=== PATIENT | female | born 1970 | race Caucasian/White ===

== ENCOUNTER → 2018-03-19 16:57 | Outpatient (CLI) | payer OTHER, SELFPAY ==
[2018-03-24 15:34] LABS: HPV APTIMA, High Risk Negative (Negative)
== END ==
PROVIDERS: Family Provider Student in an Organized Health Care Education/Training Program; PCP Student in an Organized Health Care Education/Training Program; Visit Provider Obstetrics & Gynecology
DX: Z12.4 Encounter for screening for malignant neoplasm of cervix (principal)
CPT/HCPCS: 88175; G0145

== ENCOUNTER → 2018-08-25 17:23 | Outpatient (CLI) | payer OTHER, SELFPAY | PROVIDERS: Family Provider Student in an Organized Health Care Education/Training Program; PCP Student in an Organized Health Care Education/Training Program; Referring Provider Otolaryngology; Visit Provider Otolaryngology | DX: J32.9 Chronic sinusitis, unspecified (principal) | CPT/HCPCS: 87070; 87077; 87186; 87205 ==

== ENCOUNTER → 2018-09-08 12:39 | Outpatient (CLI) | payer OTHER, SELFPAY ==
--- NOTE | 2018-09-08 12:43 | CT_ITS ---
STUDY: CT MAXILLOFACIAL SINUSES REASON FOR EXAM: Female, 48 years old. Sinusitis. RADIATION DOSAGE (If Supplied By Facility): CTDIvol = ( 33.06 ) mGy, DLP = ( 780.13 ) mGycm TECHNIQUE: The patient was scanned in a multi detector CT scanner. High resolution axial imaging was performed without the administration of intravenous contrast material. Sagittal and coronal images were reconstructed. Individualized dose optimization techniques were used for this CT. COMPARISON: None. FINDINGS: FRONTAL SINUSES: Normal aeration, without mucosal inflammatory disease. ETHMOIDAL SINUSES: Normal aeration, without mucosal inflammatory disease. MAXILLARY SINUSES: Normal aeration, without mucosal inflammatory disease. SPHENOIDAL SINUSES: Normal aeration, without mucosal inflammatory disease. There is patency of the bilateral maxillary infundibuli with normal uncinate processes, ethmoid bullae, and hiatus semilunaris. Normal bilateral middle turbinates. Normal bilateral inferior turbinates. Midline nasal septum. Right-sided bone spur. There is patency of the bilateral nasal airways. Right renee bullosa. The visualized osseous structures are normal. The visualized bilateral orbital contents are normal. CT/Sinus/Facial Bone IMPRESSION: Paranasal sinuses are well aerated. Right-sided nasal septum bone spur. Electronically Signed: Mayur Prescott MD at 23:54 EST , Service support ,
== END ==
PROVIDERS: Family Provider Student in an Organized Health Care Education/Training Program; PCP Student in an Organized Health Care Education/Training Program; Referring Provider Otolaryngology; Visit Provider Otolaryngology
DX: J32.9 Chronic sinusitis, unspecified (principal)
CPT/HCPCS: 70486

== ENCOUNTER 2019-02-24 08:02 | Day surgery (SDC) | payer OTHER, SELFPAY ==
[2018-12-16 16:06] VITALS: BMI 21.8
[2019-01-24 08:47] VITALS: BMI 21.8
--- NOTE | 2019-01-24 08:49 | HP.PCM_ITS ---
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 Required: No Allergies Penicillins Allergy (Mild, Verified 01/24/19 08:40) hives Medications ascorbic acid (vitamin C) ER 500 mg capsule,extended release 500 mg PO QDAY 03/19/18 [History Confirmed 01/24/19] calcium carbonate-vitamin D3 600 mg (1,500 mg)-400 unit capsule cap PO BID cap 03/19/18 [History Confirmed 01/24/19] ferrous sulfate 325 mg (65 mg iron) tablet,delayed release 325 mg PO QDAY tab 03/19/18 [History Confirmed 01/24/19] tamoxifen 20 mg tablet 20 mg PO QDAY 03/19/18 [History Confirmed 01/24/19] Post menopausal: No Patient : No : [facility] Medical History (Updated 01/24/19 @ 08:47 by Jasmin Sosa MD) Breast cancer (Acute) Osteopenia (Chronic) Surgical History (Updated 01/24/19 @ 08:45 by Jasmin Sosa MD) H/O foot surgery (Acute) S/P bilateral mastectomy (Acute ~08/2017) Family History Father Congestive heart failure Diabetes Mother Breast cancer Diabetes Skin cancer Social History (Updated 01/24/19 @ 08:47 by Jasmin Sosa MD) Smoking Status: Never smoker alcohol intake: never substance use type: does not use caffeine: Yes (occasionally) what type of physical activity do you participate in: running, weight training frequency: 3-4 times per week seatbelt use: always do you feel safe at home: Yes 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 she has a dermoid cyst and a histoyr of breast caner. Pregancy History 3 Elective abortions Hx Para 3 Spontaneous abortions Hx # Term Pregnancies Ectopic pregnancies Hx # Pregnancies Multiple births # of living children Past Pregnancies Del. Date Name GA/Weeks Outcome Route Bth Weight Infant Gen Labor Lgth Anesthesia Del Locatn Provider FOB Unknown Amira-1991 Unknown -1993 Unknown 1997- Const Constitutional: Denies fatigue, fever(s), headache(s), increased appetite, poor appetite, weight gain or weight loss Cardio Card: Denies chest pain Resp Resp: Denies cough or dyspnea GI GI: Reports as per HPI; denies abdominal pain, constipation, nausea or vomiting : Reports as per HPI; denies difficulty urinating, painful urination, nipple discharge, urinary frequency, urinary incontinence, urinary hesitancy, urinary urgency, vaginal discharge, vaginal dryness, vaginal odor or vaginal itching Skin Skin/Breast: Denies change in hair, breast lump, breast pain, breast skin changes or nipple discharge Exam Const General: cooperative, healthy appearing, comfortable, no acute distress, well developed Nutritional Appearance: average body habitus Orientation: alert HENMT Head: normal to inspection, normocephalic Neck Neck: normal visual inspection, trachea midline Thyroid: thyroid normal Resp Effort & Inspection: normal respiratory effort GI Inspection: normal to inspection, non-distended Palpation: soft, no hepatosplenomegaly Skin General: no rashes or lesions noted Assessment & Plan Problems 1. Dermoid cyst D36.9 plan laparoscopic right oophorectomy, CW Plan plan oophorectomy. discussed surgical risks including risks of anesthesia, infection, bleeding, injury to bowel, bladder or blood vessels, and patient wishes to proceed with surgery. Coding Level of Care Code No Charge Diagnoses Dermoid cyst D36.9 UPDATE- I have seen the patient and performed any clinically relevant updates to the history and physical exam. Jasmin Sosa MD
[2019-02-24] VITALS (8 sets, daily range): BP systolic 105–117; BP diastolic 59–70; PULSE 64–75; RESP 16–18; TEMP 36.2–37; O2SAT 96–100; BMI 22.8
--- NOTE | 2019-02-24 | OV_PTH ---
PATIENT: GREYSON ROJAS LOC: [facility] – [place] U#:[id number] AGE/SX: 49/F ROOM: RE02/24/[address]: Dr. Jasmin Sosa MD : 1970 BED: DIS: 02/24/2019 SPEC #: [id number] RECD: 02/24/19 13:42 STATUS: MARTINE REFaith #: [id number] ELIZABETH: 02/24/19 00:[address]: Jasmin Sosa DEPT: SURGICAL PATHOLOGY RECD BY: Axel Sánchez ENTERED: 02/24/19 13:42 SP TYPE: OVARY OTHR DR: Dr. Gallo Sanches, Tissues: Right ovary Procedures: Surgery Specimen Level V HEADER OPERATION: Laparoscopic right salpingo-oophorectomy PRE-OP DIAGNOSIS: Dermoid cyst TISSUE SUBMITTED: Right fallopian tube and ovary MICROSCOPIC DIAGNOSIS Right fallopian tube and ovary, salpingo-oophorectomy: Mature cystic teratoma (dermoid cyst). Ovarian tissue with corpus luteal cysts and corpora albicantia. Fallopian tube with no pathologic change. AM:irene 02/25/19 MICROSCOPIC DESCRIPTION Slides are reviewed. GROSS DESCRIPTION Received in fixative is one container labeled with the patient's name and designated right fallopian tube and ovary. The specimen consists of a fallopian tube and cystic ovary. The fallopian tube measures 6 cm in length and up to 0.6 cm in diameter. The fimbrial end is identified. The fimbrial end is focally adherent to the surface of the ovary. Sections reveal unremarkable cut surfaces. The ovary weighs 27 gm and measures 6.5 x 4 x 3 cm. At one end of the ovary, a cyst is noted measuring 4 x 4 x 3 cm. The outer surface of the cyst is smooth and inked black. The cyst is filled with yellowish sebum-like material. A few hairs are also noted mixed with sebum-like material. A focal solid area is noted consisting of sebum-like material measuring 1 cm in greatest dimension. The cyst wall measures 0.1 cm in thickness. Sections of the uninvolved portion of the ovary reveal a few yellowish nodules consistent with corpus luteum measuring 0.5 cm in greatest dimension. Bag Turner sections are submitted in five cassettes as follows: 1 - fallopian tube, 2-5 - ovary. / SJ:irene 02/24/19 TC:1 CPT: 47293
[2019-02-24 08:41] LABS: Internal QC Validated? YES +Cl - CLEAR BKGD; Pregnancy, Urine Negative Negative
[2019-02-24 08:42] LABS: Hematocrit 39.1 % (37-47); Hemoglobin 12.7 g/dL (12.0-15.0); Mean Corp Hgb Conc 32.5 g/dL (32-36); Mean Corpuscular Hgb 29.1 pg (27.0-32.0); Mean Corpuscular Volume 89.7 fL (81-99); Mean Platelet Vol. 11.5 fl (6.2-12.0); Platelet Count 194 K/mm3 (150-450); RBC Distribution Width CV 13.7 % (11.6-14.6); RBC Distribution Width SD 44.8 fl (35.1-43.9); Red Blood Count 4.36 M/mm3 (4.2-5.4); White Blood Count 5.5 K/mm3 (4.4-11.0)
[2019-02-24 08:55] LABS: International Normalized Ratio 1.1; Partial Thromboplast Time 28.1 Seconds (24.1-36.2); Prothrombin Time (Protime)PT. 13.8 SECONDS (11.7-14.9)
[2019-02-24 09:02] LABS: AST(SGOT) 19 U/L (15-37); Alanine Aminotransfer ALT/SGPT 22 U/L (13-56); Albumin, Serum 3.6 g/dL (3.2-5.0); Alkaline Phosphatase 45 U/L (45-117); Bilirubin, Direct 0.09 mg/dL (0.00-0.30); Globulin 3.5 g/dL (2.2-4.2); Protein, Total 7.1 g/dL (6.4-8.2)
[2019-02-24] MEDS: Bupivacaine 0.25% 30 ML Vial (11:19)
--- NOTE | 2019-02-24 12:02 | PCM.OPRPT ---
Problem List (1) Dermoid cyst Status: Acute Comment: plan laparoscopic right oophorectomy, CW Report of Operation Date of Procedure: 02/24/19 Pre-Operative Diagnosis: dermoid cyst Post-Operative Diagnosis: same Surgery/Procedure Performed:: laparoscopic right salpingooophorectomy Description of Surgical Findings:: right enlarged ovary Type of Anesthesia:: General Special Medications: none Specimen's removed: right tube and ovary Drains: none Estimated Blood Loss (mL): 25 Fluids Replaced: crystalloid Description of Procedure: Patient was taken in the operating room and was placed under general anesthesia was prepped and draped in normal sterile fashion in the dorsal lithotomy position. Bladder was drained of clear urine and SCDs were on preoperatively. Uterus was sounded and a uterine manipulator was placed after dilating. Attention was then paid to the abdominal portion of the procedure and the umbilicus was elevated with towel clamps and injected with Marcaine and after a 5 mm incision was made and the Veress needle was entered into the abdomen confirmed to be intra-abdominal with a low opening pressure of less than 5 mmHg. Abdomen was insufflated with CO2 gas and a 12 mm optical trocar was placed under direct visualization. A left lower quadrant 5 mm port and a 5 mm port suprapubically replaced under direct visualization. Uterus was well visualized and and right ovary was noted to be enlarged, left ovary was within normal limits and some small adhesions were noted on the left fallopian tube. The right tube and ovary were transected across using the LigaSure device and then removed in an Endo Catch bag through the umbilical port without any complications. The fascia was closed directly with 0 Vicryl. Liver and upper abdomen were visualized notably within normal limits and no other gross abnormalities were seen in the abdomen. All instruments removed from the abdomen after gas was desufflated. Port sites were closed with 3-0 Monocryl Steri's and op sites were applied. All instruments removed from the vagina and patient was awoken and taken recovery in stable condition. Grafts/Implants Used: none - Complications none
--- NOTE | 2019-02-24 12:23 | DCINST_ITS ---
Discharge Diet: No Restrictions - Increase fluid intake for the next 48 hours. Discharge Activity: Return to Normal Activity, May Drive - when you are no longer taking narcotic pain medications., May Shower, May Take a Tub Bath - in 7 days Additional Activity Instructions:: Ambulate often the next week after surgery. Nothing in the vagina for 5 days. Call your doctor if your incision/area has: Continuous Slow Oozing, Sudden Increased Bleeding, Increased Pain/ Swelling, Increased Redness, Foul Smelling Discharge Call your doctor if you observe: Fever of 101 or Higher Allergies/Adverse Reactions: Allergies Penicillins Allergy (Mild, Verified 02/24/19 08:29) hives Medications to take at Discharge ascorbic acid (vitamin C) ER 500 mg capsule,extended release 500 mg PO QDAY 03/19/18 calcium carbonate-vitamin D3 600 mg (1,500 mg)-400 unit capsule 1 cap PO BID cap 03/19/18 ferrous sulfate 325 mg (65 mg iron) tablet,delayed release 325 mg PO QDAY tab 03/19/18 tamoxifen 20 mg tablet 20 mg PO QDAY 03/19/18 Cetirizine HCl [Zyrtec] 10 mg PO DAILY 02/10/19 Cholecalciferol (VIT D3) [Vitamin D] 1,000 unit PO DAILY 02/10/19 Naproxen [Naprosyn] 250 - 500 mg PO Q8H PRN PRN #30 tab 02/24/19 Oxycodone HCl/Acetaminophen [Percocet 5-325] 1 - 2 tablet PO Q4H PRN PRN 7 Days #15 tablet 02/24/19 The following prescriptions were given: Naproxen [Naprosyn] 250 - 500 mg PO Q8H PRN PRN #30 tab PRN Reason: MILD PAIN Transmission Status: Pending to [facility] Oxycodone HCl/Acetaminophen [Percocet 5-325] 1 - 2 tablet PO Q4H PRN PRN 7 Days #15 tablet PRN Reason: Pain Transmission Status: Sent to [facility] Primary Care Physician: Gallo Sanches DO [Primary Care Provider] - Test Results: Test results from this visit will be discussed in further detail at your follow- up appointment, if applicable. Please Follow Up With: Jasmin Sosa MD - [phone]
--- NOTE | 2019-02-24 12:57 | CHAPLAIN ---
Type of Pastoral Visit ___ Initial Visit ___ Follow-up Visit ___ On-call Visit ___ General Patient Visit ___ Spiritual Assessment ___ Family Conference ___ Bereavement ___ Rapid Response ___ Code Blue _x__ Other (describe below) Pastoral Care Referral From ___ Patient _x__ Family ___ Nurse ___ Physician ___ Oncology Consultant ___ Supervisor Mixing ___ Other (describe below) Sacrament/Intervention _x__ Active listening ___ Anointing ___ Hindu ___ Bereavement ___ Communion ___ Yara exploration ___ ___ Life review ___ Prayer ___ Reconciliation ___ Sacrament of Sick _x__ Supportive presence ___ Wedding ___ Other (describe below) Pastoral Comments support offered for family during surgery of patient
== END 2019-02-24 13:56 | disposition home or self-care (01) ==
LOC: SDC 08:03 → AC 08:12
PROVIDERS: Anesthesiology; Family Provider Student in an Organized Health Care Education/Training Program; PCP Student in an Organized Health Care Education/Training Program; Referring Provider Obstetrics & Gynecology; Visit Provider Obstetrics & Gynecology
PROC: (CPT 58661; principal; 2019-02-24 09:15)
DX: N83.11 Corpus luteum cyst of right ovary (principal); N83.291 Other ovarian cyst, right side; M85.80 Other specified disorders of bone density and structure, unspecified site; Z85.3 Personal history of malignant neoplasm of breast; Z90.13 Acquired absence of bilateral breasts and nipples; Z88.0 Allergy status to penicillin
CPT/HCPCS: 58661; 36415; 80076; 81025; 85027; 85610; 85730; 86850; 86900; 88305; 88307; J7120; J2405

== ENCOUNTER → 2019-04-11 07:34 | Outpatient (CLI) | payer OTHER, SELFPAY ==
[2019-03-11 08:58] VITALS: BMI 22.8
--- NOTE | 2019-04-11 07:35 | CT_ITS ---
STUDY: CT RIGHT FOOT REASON FOR EXAM: Female, 49 years old. Recent bunionectomy surgery in November 2018. Persistent pain and swelling of the great toe. RADIATION DOSAGE (If Supplied By Facility): CTDIvol = ( 15.35 ) mGy, DLP = ( 343.47 ) mGycm TECHNIQUE: Thin section transaxial imaging of the foot was obtained, with sagittal and coronal reconstructed images. 3-D images were reconstructed. Individualized dose optimization techniques were used for this CT. COMPARISON: None. FINDINGS: Normal talus, calcaneus, and tarsal bones. Normal visualized tibiotalar, subtalar, talonavicular, calcaneocuboid, tarsal and tarsometatarsal articulations. Normal metatarsi. The patient is status post bunionectomy. A metallic pin is seen at the distal portion of the first metatarsal. Postoperative changes are seen. Normal tibial and fibular sesamoid bones. Normal interphalangeal joint of the great toe. Normal phalanges of the great toe. Normal second through fifth metatarsophalangeal joints. Normal interphalangeal joints and phalanges of the lesser toes. Mild soft tissue swelling. CT/Extremity Lower without Contra IMPRESSION: Status post bunionectomy at the first metatarsophalangeal joint with postoperative changes. Residual soft tissue swelling. No stress fracture is seen. Electronically Signed: Bryant Aguilar, at 9:10 EDT , Service support ,
== END ==
PROVIDERS: Family Provider Student in an Organized Health Care Education/Training Program; PCP Student in an Organized Health Care Education/Training Program; Referring Provider Specialist; Visit Provider Specialist
DX: M84.377A Stress fracture, right toe(s), initial encounter for fracture (principal); R22.42 Localized swelling, mass and lump, left lower limb
CPT/HCPCS: 73700

== ENCOUNTER 2020-10-19 05:30 | Day surgery (SDC) | payer OTHER, SELFPAY ==
[2020-08-14 09:24] VITALS: BMI 23.0
[2020-10-11 15:57] VITALS: BMI 22.8
--- NOTE | 2020-10-15 16:04 | EKG12_ITS ---
Test Reason : PRE-OP Blood Pressure : / mmHG Vent. Rate : 067 BPM Atrial Rate : 067 BPM P-R Int : 144 ms QRS Dur : 078 ms QT Int : 404 ms P-R-T Axes : 068 063 053 degrees QTc Int : 426 ms Normal sinus rhythm Normal ECG Confirmed by EMANUEL FARRIS, TAMAR ([id number]), natural gas treating unit operator MIN BOWDEN ([id number]) on 10/17/2020 10:07:07 AM Referred By: Jasmin Sosa Confirmed By:TAMAR CASTELLANOS MD
[2020-10-15 16:44] LABS: Hematocrit 40.7 % (37-47); Hemoglobin 13.1 g/dL (12.0-15.0); Mean Corp Hgb Conc 32.2 g/dL (32-36); Mean Corpuscular Hgb 29.5 pg (27.0-32.0); Mean Corpuscular Volume 91.7 fL (81-99); Mean Platelet Vol. 11.8 fl (6.2-12.0); Platelet Count 187 K/mm3 (150-450); RBC Distribution Width CV 13.1 % (11.6-14.6); RBC Distribution Width SD 44.5 fl (35.1-43.9); Red Blood Count 4.44 M/mm3 (4.2-5.4); White Blood Count 7.2 K/mm3 (4.4-11.0)
[2020-10-15 17:00] LABS: International Normalized Ratio 1.1; Prothrombin Time (Protime)PT. 13.2 SECONDS (11.7-14.9)
[2020-10-15 17:01] LABS: Partial Thromboplast Time 28.3 Seconds (24.1-36.2)
[2020-10-15 17:22] LABS: Anion Gap 4 (5-15); BUN 22 mg/dL (7-18); BUN/Creat Ratio 26.9 RATIO (10-20); Calcium,Total 8.9 mg/dL (8.5-10.1); Chloride 106 mmol/L (98-107); Creatinine, Serum 0.82 mg/dL (0.55-1.02); EST Glomerular Filtration Rate 78 mL/min (>60); Est Glom Filt Rate - Afr Amer 94 mL/min (>60); Glucose 93 mg/dL (74-106); Potassium 4.5 mmol/L (3.5-5.1); Sodium Level 138 mmol/L (136-145)
[2020-10-15 17:25] LABS: AST(SGOT) 16 U/L (15-37); Alanine Aminotransfer ALT/SGPT 23 U/L (13-56); Albumin, Serum 3.8 g/dL (3.2-5.0); Alkaline Phosphatase 37 U/L (45-117); Bilirubin, Direct 0.06 mg/dL (0.00-0.30); Magnesium 2.3 mg/dL (1.6-2.6); Protein, Total 6.8 g/dL (6.4-8.2)
[2020-10-19] VITALS (13 sets, daily range): BP systolic 103–118; BP diastolic 61–79; PULSE 69–81; RESP 16; TEMP 36.4–37; O2SAT 96–100; BMI 22.6; BMI 21.9
--- NOTE | 2020-10-19 | HYST_PTH ---
PATIENT: GREYSON ROJAS LOC: [facility] [place] U#:[id number] AGE/SX: 50/F ROOM: RE10/19/[address]: Dr. Jasmin Sosa MD : 1970 BED: DIS: 10/20/2020 SPEC #: [id number] RECD: 10/19/20 11:18 STATUS: MARTINE CIFUENTES #: [id number] ELIZABETH: 10/19/20 00:[address]: Jasmin Sosa DEPT: SURGICAL PATHOLOGY RECD BY: Axel Sánchez ENTERED: 10/19/20 11:18 SP TYPE: HYSTERECT OTHR DR: MD Dr. Gallo Aguirre DO Tissues: Uterus, NOS Procedures: Surgery Specimen Level V HEADER OPERATION: ERAS, vaginal hysterectomy, salpingo-oophorectomy, vulvar skin PRE-OP DIAGNOSIS: Incomplete uterovaginal prolapse TISSUE SUBMITTED: Cervix, uterus, left ovary and left fallopian tube MICROSCOPIC DIAGNOSIS Cervix, uterus, left ovary and fallopian tube, vaginal hysterectomy and left salpingo-oophorectomy: Cervix - mild chronic cystic cervicitis. Endometrium - weakly secretory endometrium. Myometrium - intramural leiomyomas (largest measuring 1.3 cm in greatest dimension). - Focal adenomyosis. Left fallopian tube - no pathologic diagnosis. Left ovary - physiologic follicular and corpus luteum cysts. SUSANA:irene 10/22/2020 MICROSCOPIC DESCRIPTION Slides are reviewed. GROSS DESCRIPTION Received in fixative is one container labeled with the patient's name and designated uterus. The specimen consists of an open uterus measuring 12 x 7 x 5.5 cm and weighing 197 gm. The ectocervix is unremarkable. The endocervical canal measures 3.5 cm in length and is grossly unremarkable. The triangular endometrial cavity measures 3.5 x 2.5 cm. The myometrium contains multiple rubbery, white-barney nodules ranging in size from 0.7 to 1.3 cm in greatest dimension. The nodules grossly resemble leiomyomas. The myometrium without nodules averages 2.7 cm in thickness. Present free in the container are multiple irregular fragments of yellow to pink soft tissue ranging in size from 1.5 to 3.5 cm and resemble portions of ovarian tissue. Sections reveal multiple cysts ranging in size from 0.2 to 1.2 cm and containing clear to bloody fluid. Also present free in the container is a segment of fallopian tube measuring 3.5 cm in length and 0.6 cm in average diameter. Flanging Roll Operator sections are submitted as follows: 1 - anterior cervix, 2 - posterior cervix, 3 & 4 - anterior uterine wall, 5 & 6 - posterior uterine wall, 7 - myometrial masses, 8 & 9 - fallopian tube and ovary. / AM:irene 10/19/20 TC:1 CPT: 56503
[2020-10-19 05:58] LABS: Internal QC Validated? YES +Cl - CLEAR BKGD; Pregnancy, Urine Negative Negative
[2020-10-19] MEDS: Scopolamine 1mg/72hr Patch 1 PATCH TD (06:09)
[2020-10-19] MEDS: Acetaminophen 500 MG Tablet 1000 MG PO ×3 (06:10→17:46)
[2020-10-19] MEDS: Celecoxib 200 MG Capsule 400 MG PO (06:10)
[2020-10-19] MEDS: dexAMETHasone 10 MG/ML Vial 8 MG IV (06:11)
[2020-10-19] MEDS: Gabapentin 600 MG Tablet PO (06:11)
[2020-10-19] MEDS: Enoxaparin 40 MG/0.4 ML Syringe SC (06:12)
[2020-10-19] MEDS: Lactated Ringers 1,000 ML 40 ML IV (06:12)
--- NOTE | 2020-10-19 07:22 | PCM.HPOB.BLA ---
- Problem List (1) goes by Clementina Status: Acute (2) Prolapse of female pelvic organs Status: Chronic Qualifiers: Comment: plan TVH LS combo case with Micky. consent signed History and Physical Date of Admission: 10/19/20 Intake Vital Signs 10/11/20 Height 5 ft 3 in 10/11/20 Weight: 129 lb 10/11/20 BMI 22.8 10/11/20 BP 116/72 08/23/20 BMI 23.0 Intake Visit Reasons: TVH Left salpingectomy Chief Complaint: pre op TV Left Salping Foundry Tender Required: No Is patient in pain?: No Allergies Penicillins Allergy (Mild, Verified 10/12/20 09:04) hives Medications ascorbic acid (vitamin C) 500 mg capsule,extended release 500 mg PO QDAY 03/19/18 [History Confirmed 10/12/20] calcium carbonate-vitamin D3 600 mg (1,500 mg)-400 unit capsule 1 cap PO BID cap 03/19/18 [History Confirmed 10/12/20] ferrous sulfate 325 mg (65 mg iron) tablet,delayed release 325 mg PO QDAY tab 03/19/18 [History Confirmed 10/12/20] tamoxifen 20 mg tablet 20 mg PO QDAY 03/19/18 [History Confirmed 10/12/20] Cholecalciferol (VIT D3) [Vitamin D] 1,000 unit PO DAILY 02/10/19 [History Confirmed 10/12/20] triamcinolone acetonide 55 mcg/actuation nasal spray,aerosol 1 spray INTRANASAL DAILY 10/11/20 [History Confirmed 10/12/20] Cyanocobalamin (Vitamin B-12) [Vitamin B-12] 100 mcg PO DAILY 10/12/20 [History Confirmed 10/12/20] Psyllium Husk (with Sugar) [Fiber Powder] 368 gm PO DAILY 10/12/20 [History Confirmed 10/12/20] Is last menstrual period known: No Post menopausal: No Patient : No : No PFSH Medical History Breast cancer (Acute) Osteopenia (Chronic) Surgical History H/O foot surgery (Acute) S/P bilateral mastectomy (Acute ~08/2017) Family History Father Congestive heart failure Diabetes Mother Breast cancer Diabetes Skin cancer Social History (Updated 10/15/20 @ 13:[address] 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 Female Reproductive History Menopausal Symptoms: No hot flashes, No night sweats, No difficulty concentrating, No change in libido Pregancy History 3 Elective abortions Hx Para 3 Spontaneous abortions Hx # Term Pregnancies Ectopic pregnancies Hx # Pregnancies Multiple births # of living children Past Pregnancies Del. Date Name GA/Weeks Outcome Route Bth Weight [facility] F[facility] Am[facility] Unknown -1993 Unknown 1997- Const Constitutional: Denies fatigue, fever(s), headache(s), increased appetite, poor appetite, night sweats, weight gain or weight loss Cardio Card: Denies chest pain Resp Resp: Denies cough or dyspnea GI GI: Reports as per HPI; denies abdominal pain, constipation, nausea or vomiting : Reports as per HPI and urinary incontinence (mild does PFPT); denies difficulty urinating, painful urination, hot flashes, nipple discharge, urinary frequency, urinary hesitancy, urinary urgency, vaginal discharge, vaginal dryness, vaginal odor or vaginal itching Skin Skin/Breast: Denies change in hair, breast lump, breast pain, breast skin changes or nipple discharge Psych Psych: Denies change in sex drive or difficulty concentrating Exam Const General: cooperative, healthy appearing, comfortable, no acute distress, well developed, well groomed HENOH Head: normal to inspection, normocephalic Ears: hearing grossly normal bilaterally, external ears normal Nose: external nose normal Face and sinus: normal facial exam Neck Neck: normal visual inspection, full ROM, no lymphadenopathy Thyroid: thyroid normal Chest Chest palpation & inspection: normal inspection of the chest Breast inspection: abnormal inspection of the breast (bilateral scars with reconstructions) Breast palpation: normal palpation of the breasts, normal palpation of the axillae, no axillary lymphadenopathy Resp Effort & Inspection: normal respiratory effort GI Inspection: normal to inspection, non-distended Palpation: soft, no hepatosplenomegaly, no guarding General: bladder normal to palpation External Female Exam: normal external appearance, normal appearance of the urethra, no lesions Urethra: normal appearance of the urethra, normal palpation Speculum Exam - Vagina: normal appearance of the vagina, normal vaginal discharge Speculum Exam - Cervix: normal appearance of the cervix, no cervical discharge, no lesions, nontender Bimanual Exam- Vagina & Uterus: normal bimanual exam, uterine size normal, bladder normal to palpation, No cervical tenderness, uterine mobility normal, uterine consistency normal, uterus non-tender, no cervical motion tenderness Bimanual Exam- Adnexa, other: normal adnexae, no adnexal masses, adnexae non-tender, rectocele, cystocele (grade III) Pelvic Support: cystocele (grade III) moderate, rectocele Skin General: no rashes or lesions noted Neuro General: alert, moves all extremities, no focal motor deficits Extrem General: normal to inspection, no pedal edema Psych Appearance: grossly normal Mental Status: mental status grossly normal Affect: normal affect Speech and Movement: speech and movement normal Attitude: cooperative Assessment & Plan Problems 1. Incomplete uterovaginal prolapse N81.2 plan TVH LS combo case with Micky. consent signed Plan After discussing the patient's diagnosis and treatment plan options, patient wishes to proceed with surgical management. I have discussed with the patient the risks, benefits, and alternatives of the procedure which include but are not limited to risks of anesthesia, bleeding, infection, possible damage to bowel, bladder, or surrounding vasculature which could lead to additional surgery to evaluate any complications. Patient agrees to procedure and wishes to proceed. ACOG/uptodate references given for additional information regarding procedure. Coding Level of Care Code No Charge Diagnoses Incomplete uterovaginal prolapse N81.2 ??Prolapse type: incomplete uterovaginal prolapse UPDATE- I have seen the patient and performed any clinically relevant updates to the history and physical exam. Jasmin Sosa MD
[2020-10-19 07:46] LABS: Bedside Glucose 60 mg/dL (70-110)
[2020-10-19 07:46] LABS: Bedside Glucose 60 mg/dL (70-110)
[2020-10-19] MEDS: Lubricating Jelly 60 GM Tube 30 GM TOPICAL (07:53)
[2020-10-19] MEDS: Vasopressin 20 UNITS/ML Vial (07:58)
--- NOTE | 2020-10-19 08:30 | PCM.OPRPT ---
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 consent signed Report of Operation Date of Procedure: 10/19/20 Pre-Operative Diagnosis: pelvic organ prolapse, stress incontinence Post-Operative Diagnosis: same Surgery/Procedure Performed:: Posterior repair, mid urethral sling insertion, cystoscopy Type of Anesthesia:: General Estimated Blood Loss (mL): 25cc Description of Procedure: The patient is a 50-year-old female with ureterovaginal prolapse and stress incontinence who presents for definitive surgical intervention. She has recently undergone urodynamics and office cystoscopy. Informed consent was obtained preoperatively. The patient was taken to the operating room and placed on the operating room table. Anesthesia monitored the head, neck, airway, IV access and vital signs throughout the case. Once anesthesia was appropriate ministered the patient was placed into exaggerated dorsal lithotomy in Trendelenburg position. The case was started by Dr. Rivera and once the specimen was removed and the vaginal cuff was closed, the case was turned over to ky. The apex of the vagina was well supported at this time and there was no significant cystocele. The decision was made to proceed with a posterior repair of the rectocele and mid urethral sling insertion. The posterior vaginal wall was injected submucosally with vasopressin for hydrostatic dissection and hemostatic control. A midline incision was made and sharp and blunt dissection was performed until the rectovaginal fascia was identified bilaterally. This was then brought together in a 2 layer closure. The vaginal mucosa was closed over the repair using running interlocking 2-0 Vicryl. The repair extended all the way into the perineal body which was brought together using interrupted Vicryl as well. In the process of this repair there were 2 small skin tags in the area of the perineal body that were removed. Closure of this was included in the closure of the posterior repair. At this time attention was turned towards the mid urethra which was injected submucosally with vasopressin. A midline incision was then made approximately 2 cm in length. Sharp and blunt dissection was performed on either side of the urethra with care being taken to avoid entry into the urethra or the vaginal mucosa. Using the given trochars, the Altis mid urethral sling was inserted without difficulty. The mesh lay flat against the urethra without tension. The tensioning suture was then cut and the midline incision was closed using running interlocking 2-0 Vicryl. At this time the Pleitez catheter was removed and a cystourethroscopy was performed. This was done through the urethra. The urethral mucosa and the bladder mucosa were visualized in their entirety. There were no abnormalities identified including injuries or areas of hemorrhage, foreign body. Both ureteral orifices were observed and good ureteral jets were seen. At this time the cystoscope was removed and the Pleitez catheter was replaced. The vagina was packed with vaginal packing. The patient was awakened and taken to the recovery room in good condition. There were no complications during this procedure. Grafts/Implants Used: Altis - Complications None - Admit VTE Documentation VTE Present on Admission: Yes VTE Mechan Device Prophylaxis: SCD's VTE Pharm Prophylaxis ordered?: Yes
--- NOTE | 2020-10-19 08:31 | DCINST_ITS ---
Discharge Diet: No Restrictions Discharge Activity: May not drive while taking narcotic pain medications., - - may shower. no tub bathing, swimming, or hot tubs. no strenuous activity, no exercise, no sexual activity May resume sexual activity in: 8 weeks Call your doctor if your incision/area has: Continuous Slow Oozing, Sudden Increased Bleeding, Increased Pain/ Swelling, Foul Smelling Discharge Call your doctor if you observe: Fever of 101 or Higher, Inability to urinate, Inability to have a bowel movement, Calf discomfort, Uncontrolled pain Allergies/Adverse Reactions: Allergies Penicillins Allergy (Mild, Verified 10/19/20 05:35) hives Medications to take at Discharge ascorbic acid (vitamin C) 500 mg capsule,extended release 500 mg PO QDAY 03/19/18 calcium carbonate-vitamin D3 600 mg (1,500 mg)-400 unit capsule 1 cap PO BID cap 03/19/18 ferrous sulfate 325 mg (65 mg iron) tablet,delayed release 325 mg PO QDAY tab 03/19/18 tamoxifen 20 mg tablet 20 mg PO QDAY 03/19/18 Cholecalciferol (VIT D3) [Vitamin D] 1,000 unit PO DAILY 02/10/19 triamcinolone acetonide 55 mcg/actuation nasal spray,aerosol 1 spray INTRANASAL DAILY 10/11/20 Cyanocobalamin (Vitamin B-12) [Vitamin B-12] 100 mcg PO DAILY 10/12/20 Psyllium Husk (with Sugar) [Fiber Powder] 368 gm PO DAILY 10/12/20 RX: Naproxen [Naprosyn] 250 - 500 mg PO Q8H PRN PRN #30 tab 10/19/20 RX: Oxycodone HCl/Acetaminophen [Percocet 5-325] 1 - 2 tablet PO Q6H PRN PRN 7 Days #15 tablet 10/19/20 Smz/Tmp Ds [Bactrim Ds] 1 tablet PO BID 3 Days #6 tab 10/20/20 The following prescriptions were given: Smz/Tmp Ds [Bactrim Ds] 1 tablet PO BID 3 Days #6 tab Transmission Status: Pending to [facility] RX: Naproxen [Naprosyn] 250 - 500 mg PO Q8H PRN PRN #30 tab PRN Reason: MILD PAIN Transmission Status: Received by [facility] RX: Oxycodone HCl/Acetaminophen [Percocet 5-325] 1 - 2 tablet PO Q6H PRN PRN 7 Days #15 tablet PRN Reason: Pain Transmission Status: Received by [facility] Primary Care Physician: Gallo Sanches DO [Primary Care Provider] - Test Results: Test results from this visit will be discussed in further detail at your follow- up appointment, if applicable. Please Follow Up With: Carmella Weeks MD Proposed Discharge Date: 10/20/20
[2020-10-19] MEDS: Lactated Ringers 1,000 ML 70 ML IV ×2 (10:31→13:17)
--- NOTE | 2020-10-19 10:48 | PCM.OPRPT ---
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 consent signed Report of Operation Date of Procedure: 10/19/20 Pre-Operative Diagnosis: pelvic prolapse Post-Operative Diagnosis: same plus enlarged uterus and multicystic ovary Surgery/Procedure Performed:: tvh lso Description of Surgical Findings:: left abnormal appearing multicystic ovary, nl tube, enlarged uterus 12 week size artificial breeding distributor: Sunday Lopez Type of Anesthesia:: General Special Medications: none Specimen's removed: uterus left tube ovary Drains: escalona Estimated Blood Loss (mL): 150 Fluids Replaced: crystalloid Description of Procedure: Patient was taken to the operating room and was placed under general anesthesia was prepped and draped in normal sterile fashion in the dorsal lithotomy position. Preoperative antibiotics and SCDs and Escalona catheter was placed inside the bladder. Weighted speculum was placed in the vagina and the anterior and posterior lip of the cervix was grasped with 2 Michaela clamps and circumferentially injected with dilute vasopressin. A circumferential incision was made with a scalpel and the posterior cul-de-sac was entered into sharply and a longneck speculum was placed. The anterior cul-de-sac was also dissected down and entered into sharply and the uterosacral ligaments were clamped cut and suture ligated bilaterally followed by the cardinal ligaments which were Clamped cut and suture ligated bilaterally with 0 Monocryl. The uterus serially descended and progressive bites were taken bilaterally up to the level of the utero-ovarian ligament bilaterally which was clamped transected and double ligated with 0 Monocryl suture and 0 Vicryl free tie. left fallopian tube and ovary were well visualized and the left ovary was abnormal appearing with multiple cysts and a growth seen. Due to this abnormal appearance the decision for removal was made to avoid a future surgery. usig a vern clamp the base of the ovary an tube was clamped and then cut, removed. Excellent hemostasis was noted after an additional suture was placed over the bilateral pelvic side carney. Posterior peritoneum was reapproximated with The vagina which was closed with [id number] 0 Vicryl pop offs including the posterior and anterior peritoneum in the reapproximation. Excellent hemostasis was noted. All instruments removed from the vagina clear urine was noted at the end of the procedure and patient was awoken and taken recovery in stable condition. Grafts/Implants Used: none - Complications none - Admit VTE Documentation VTE Present on Admission: No VTE Mechan Device Prophylaxis: SCD's Multi Select Codes - Urinary/Genital Urinary/Genital CPT Codes: 11609 TVH+BS/O <250gr uterus
--- NOTE | 2020-10-19 10:54 | DCINST_ITS ---
Discharge Diet: No Restrictions Discharge Activity: May not drive while taking narcotic pain medications., - - may shower. no tub bathing, swimming, or hot tubs. no strenuous activity, no exercise, no sexual activity May resume sexual activity in: 8 weeks Call your doctor if your incision/area has: Continuous Slow Oozing, Sudden Increased Bleeding, Increased Pain/ Swelling, Foul Smelling Discharge Call your doctor if you observe: Fever of 101 or Higher, Inability to urinate, Inability to have a bowel movement, Calf discomfort, Uncontrolled pain Allergies/Adverse Reactions: Allergies Penicillins Allergy (Mild, Verified 10/19/20 05:35) hives Medications to take at Discharge ascorbic acid (vitamin C) 500 mg capsule,extended release 500 mg PO QDAY 03/19/18 calcium carbonate-vitamin D3 600 mg (1,500 mg)-400 unit capsule 1 cap PO BID cap 03/19/18 ferrous sulfate 325 mg (65 mg iron) tablet,delayed release 325 mg PO QDAY tab 03/19/18 tamoxifen 20 mg tablet 20 mg PO QDAY 03/19/18 Cholecalciferol (VIT D3) [Vitamin D] 1,000 unit PO DAILY 02/10/19 triamcinolone acetonide 55 mcg/actuation nasal spray,aerosol 1 spray INTRANASAL DAILY 10/11/20 Cyanocobalamin (Vitamin B-12) [Vitamin B-12] 100 mcg PO DAILY 10/12/20 Psyllium Husk (with Sugar) [Fiber Powder] 368 gm PO DAILY 10/12/20 Naproxen [Naprosyn] 250 - 500 mg PO Q8H PRN PRN #30 tab 10/19/20 Oxycodone HCl/Acetaminophen [Percocet 5-325] 1 - 2 tablet PO Q6H PRN PRN 7 Days #15 tablet 10/19/20 The following prescriptions were given: Naproxen [Naprosyn] 250 - 500 mg PO Q8H PRN PRN #30 tab PRN Reason: MILD PAIN Transmission Status: Pending to [facility] Oxycodone HCl/Acetaminophen [Percocet 5-325] 1 - 2 tablet PO Q6H PRN PRN 7 Days #15 tablet PRN Reason: Pain Transmission Status: Sent to [facility] Primary Care Physician: Gallo Sanches DO [Primary Care Provider] - Test Results: Test results from this visit will be discussed in further detail at your follow- up appointment, if applicable. Please Follow Up With: Carmella Weeks MD Proposed Discharge Date: 10/20/20
[2020-10-19] MEDS: Ketorolac 30 MG/ML Syringe IV ×2 (11:14→13:17)
[2020-10-19] MEDS: Docusate Sodium 100 MG Capsule PO (22:07)
[2020-10-20] MEDS: Ketorolac 30 MG/ML Syringe IV ×2 (00:13→06:03)
[2020-10-20] MEDS: Acetaminophen 500 MG Tablet 1000 MG PO ×2 (00:13→06:45)
[2020-10-20 02:43] VITALS: BP 95/75; PULSE 77; RESP 16; TEMP 36.8; O2SAT 100
[2020-10-20] MEDS: oxyCODONE 5 MG Tablet PO (02:55)
[2020-10-20] MEDS: Lactated Ringers 1,000 ML 70 ML IV (02:56)
--- NOTE | 2020-10-20 05:49 | PN.OBGYN_ITS ---
Patient Problems: Active and Suspected Problems (Last Reviewed 10/11/20 @ 15:58 by Ceci Lester) Stress incontinence (Acute) goes by Clementina (Acute) Subjective: patient recovering well, denies CP, SOB, N, or V. patient is ambulating, voiding ,tolerating adequate po, and pain is controlled with oral medications. - Physical Exam Vitals/I&O's: Vital Signs Temp Pulse Resp BP Pulse Ox 98.2 F 77 16 95/75 100 10/20/20 02:43 10/20/20 02:43 10/20/20 02:43 10/20/20 02:43 10/20/20 02:43 Oxygen Flow Rate (L/min) 6 Oxygen Delivery Method Room Air Weight: 123 lb 10.869 oz Body Mass Index (BMI) 21.9 Intake and Output for Last 24 Hours 10/18/20 10/19/20 10/20/20 23:59 23:59 23:59 Intake Total 1266.0 / 1266.0 2455.5 / 2455.5 Output Total 1125 / 1125 1200 / 1200 Balance 141.0 / 141.0 1255.5 / 1255.5 General: Alert, Oriented x3 Microbiology Past 72 Hours 10/18/20 16:10 Interface Orders SARS-CoV-2 Antigen (Rapid) - Final Laboratory Results 10/19/20 05:30: Urine Test Negative 10/19/20 06:05: POC Glucose 60 L 10/19/20 06:07: POC Glucose 60 L Current Medications Acetaminophen (Acetaminophen 500 Mg Tablet) 1,000 mg PO Q6 [facility] Last Admin: 10/20/20 00:13 Dose: 1,000 mg Documented by: Docusate Sodium (Docusate Sodium 100 Mg Capsule) 100 mg PO BID [facility] Last Admin: 10/19/20 22:07 Dose: 100 mg Documented by: Enoxaparin Sodium (Enoxaparin 40 Mg/0.4 Ml Syringe) 40 mg SC DAILY [facility] Lactated Ringer's () 1,000 mls @ 70 mls/hr IV .[id number] [facility] Stop: 10/20/20 10:59 Last Admin: 10/20/20 02:56 Dose: 70 mls/hr Documented by: Ketorolac Tromethamine (Ketorolac 30 Mg/Ml Syringe) 30 mg IV Q6 [facility] Stop: 10/20/20 18:01 Last Admin: 10/20/20 00:13 Dose: 30 mg Documented by: Magnesium Chloride (Magnesium Chloride 64 Mg Delay Rel.Tablet) 128 mg PO DAILY PRN PRN PRN Reason: Constipation Nutritional Formula (Lactose Free) (Ensure Enlive 120 Ml Liquid) 120 ml PO TIDCM GENE Ondansetron HCl (Ondansetron Odt 4 Mg Tablet) 4 mg PO Q6H PRN PRN PRN Reason: NAUSEA Oxycodone HCl (Oxycodone 5 Mg Tablet) 5 - 10 mg PO Q4H PRN PRN PRN Reason: Pain Score 4-10 Last Admin: 10/20/20 02:55 Dose: 5 mg Documented by: Sodium Chloride (0.9% Saline Lock 10 Ml Syringe) 10 - 40 ml IV UD PRN PRN Reason: SALINE FLUSH Medical Necessity - Tobacco Use Smoking Status: Never smoker Tobacco Use: Non-smoker Assessment/Plan All Active Problems (Last Reviewed 10/11/20 @ 15:58 by Ceci Lester) Stress incontinence (Acute) goes by Clementina (Acute) Dermoid cyst (Resolved) patient is s/p tvhlso POD 1 1. routine ERAS protocol postop care- increase ambulation, encourage oral intake and oral control of pain. lovenox and scds for dvt prophylaxis, patient stable for discharge to home.
[2020-10-20 05:57] LABS: Hematocrit 32.8 % (37-47); Hemoglobin 10.6 g/dL (12.0-15.0); Mean Corp Hgb Conc 32.3 g/dL (32-36); Mean Corpuscular Hgb 29.2 pg (27.0-32.0); Mean Corpuscular Volume 90.4 fL (81-99); Mean Platelet Vol. 11.7 fl (6.2-12.0); Platelet Count 130 K/mm3 (150-450); RBC Distribution Width CV 13.2 % (11.6-14.6); RBC Distribution Width SD 43.4 fl (35.1-43.9); Red Blood Count 3.63 M/mm3 (4.2-5.4); White Blood Count 8.4 K/mm3 (4.4-11.0)
--- NOTE | 2020-10-20 09:06 | PCM.PN.BLA ---
Progress Note Awake, comfortably resting in bed. No issues overnight. Vital signs are good, voiding without discomfort. Pleitez catheter and vaginal packing were removed this morning. Assessment and plan: Bladder scan post void residual Home later today Follow-up in the office in 2 weeks sooner if needed
[2020-10-20] MEDS: Docusate Sodium 100 MG Capsule PO (09:32)
[2020-10-20] MEDS: Enoxaparin 40 MG/0.4 ML Syringe SC (09:32)
== END 2020-10-20 10:15 | disposition home or self-care (01) ==
LOC: SDC 05:31 → AC 05:31 → MS3 14:45
PROVIDERS: Anesthesiology; Urology; PCP Student in an Organized Health Care Education/Training Program; Referring Provider Obstetrics & Gynecology; Visit Provider Obstetrics & Gynecology
PROC: (CPT 58260; principal; 2020-10-19 07:10)
PROC: (CPT 57260; 2020-10-19 07:10)
DX: N39.3 Stress incontinence (female) (male) (principal); N81.2 Incomplete uterovaginal prolapse; N72 Inflammatory disease of cervix uteri; N80.0 Endometriosis of uterus; N83.12 Corpus luteum cyst of left ovary; D25.1 Intramural leiomyoma of uterus; Z88.0 Allergy status to penicillin; Z79.899 Other long term (current) drug therapy; Z79.1 Long term (current) use of non-steroidal anti-inflammatories (NSAID); Z90.13 Acquired absence of bilateral breasts and nipples
CPT/HCPCS: 52000; 57250; 57288; 58262; 80048; 80076; 81025; 82962; 83735; 85027; 85610; 85730; 86850; 86900; 86901; 87426; 88307; 93005; 94762; 99251; C9803; J7120; G0463; J2405; J3475

== ENCOUNTER 2021-07-20 12:54 | Outpatient (CLI) | payer OTHER, SELFPAY ==
[2021-07-20] MEDS: 0.9% Saline Lock 10 ML Syringe IV (13:21)
[2021-07-20 13:27] VITALS: BP 103/79; PULSE 79; RESP 16; TEMP 36.9; O2SAT 100; BMI 22.1
[2021-07-20 14:16] VITALS: BP 98/67; PULSE 65; RESP 16; TEMP 37.1; O2SAT 100
[2021-07-20 14:58] VITALS: BP 107/64; PULSE 65; RESP 16; TEMP 37.1; O2SAT 100
== END 2021-07-20 15:16 | disposition home or self-care (01) ==
LOC: MS3OUT 12:54 → MS3 12:55
PROVIDERS: PCP Student in an Organized Health Care Education/Training Program; Referring Provider Nurse Practitioner Acute Care; Visit Provider Nurse Practitioner Acute Care
DX: Z23 Encounter for immunization (principal); U07.1 COVID-19
CPT/HCPCS: J7050; M0245; Q0245; A4216

== ENCOUNTER 2024-01-07 08:22 | Observation (INO) | payer OTHER, SELFPAY ==
--- NOTE | 2024-01-01 09:16 | EKG12_ITS ---
Test Reason : PREOP Blood Pressure : / mmHG Vent. Rate : 074 BPM Atrial Rate : 074 BPM P-R Int : 146 ms QRS Dur : 076 ms QT Int : 394 ms P-R-T Axes : 069 069 041 degrees QTc Int : 437 ms Normal sinus rhythm Normal ECG Confirmed by KASSY FARRIS, SUYAPA ([id number]), continuity editor DERIAN JORDAN ([id number]) on 01/04/2024 7:03:06 AM Referred By: Carmella Weeks Confirmed By:KAROLYN ELENA MD
[2024-01-01 09:56] LABS: Hematocrit 39.4 % (37-47); Hemoglobin 12.1 g/dL (12.0-15.0); Mean Corp Hgb Conc 30.7 g/dL (32-36); Mean Corpuscular Volume 87.9 fL (81-99); Mean Platelet Vol. 11.1 fl (6.2-12.0); Platelet Count 224 K/mm3 (150-450); RBC Distribution Width CV 14.4 % (11.6-14.6); RBC Distribution Width SD 45.7 fl (35.1-43.9); Red Blood Count 4.48 M/mm3 (4.2-5.4); White Blood Count 5.2 K/mm3 (4.4-11.0)
[2024-01-01 10:20] LABS: Anion Gap 2 (5-15); BUN 9 mg/dL (7-18); BUN/Creat Ratio 14.4 RATIO (10-20); Calcium,Total 8.3 mg/dL (8.5-10.1); Chloride 109 mmol/L (98-107); Creatinine, Serum 0.62 mg/dL (0.55-1.02); EST Glomerular Filtration Rate 105 mL/min (>60); Est Glom Filt Rate - Afr Amer 127 mL/min (>60); Glucose 73 mg/dL (74-106); Potassium 4.4 mmol/L (3.5-5.1); Sodium Level 140 mmol/L (136-145)
[2024-01-07] VITALS (15 sets, daily range): BP systolic 88–124; BP diastolic 55–77; PULSE 71–81; RESP 16–18; TEMP 36.1–36.7; O2SAT 97–100; BMI 23.4
[2024-01-07] MEDS: Lactated Ringers 1,000 ML 15 ML IV ×2 (07:42→10:21)
[2024-01-07] MEDS: Ciprofloxacin 400 MG/200 ML BAG 200 MG IV (08:21)
--- NOTE | 2024-01-07 08:23 | DCINST_ITS ---
Discharge Instructions Diet Discharge Diet: No restrictions Activity Discharge Activity: May Not Drive (for 2 weeks) and May Shower May resume sexual activity in: 8 weeks Lifting Restrictions: 5 pounds Additional Activity Instructions:: no strenuous activity, sexual activity, vacuuming, swimming, tub bathing or hot tubs Dressing / Incision Call your doctor if your incision/area has: Continuous Slow Oozing, Sudden Increased Bleeding, Increased Pain/ Swelling and Foul Smelling Discharge Call your doctor if you observe: Fever of 101 or Higher, Inability to urinate and Inability to have a bowel movement Follow Up Care Please Follow Up With: Carmella Weeks MD When: the office will call to make follow up arrangements Test Results: Test results from this visit will be discussed in further detail at your follow- up appointment, if applicable. Discharge Plan Admission Admit Date/Time: 01/07/24 08:22 Attending Provider: Carmella Weeks Primary Care Provider: Gallo Sanches Discharge Orders/Prescriptions Prescriptions: New ciprofloxacin HCl 500 mg tablet 500 mg PO BID Qty: 6 0RF oxycodone-acetaminophen [Percocet] 5-325 mg tablet 1 tab PO Q8H PRN (Reason: pain) 5 Days Qty: 15 0RF ondansetron 4 mg tablet,disintegrating 4 mg PO Q8H PRN (Reason: nausea and vomiting) Qty: 10 0RF Continued calcium carbonate-vitamin D3 [Calcium 600 with Vitamin D3] 600 mg(1,500mg) - 400 unit capsule 1 cap PO BID cholecalciferol (vitamin D3) 1,000 UNIT tablet 1,000 unit PO DAILY cyanocobalamin (vitamin B-12) 100 MCG tablet 100 mcg PO DAILY venlafaxine 37.5 mg capsule,extended release 24hr 37.5 mg PO DAILY Gemtesa 75 mg tablet 75 mg PO DAILY Ibsrela 50 mg tablet 50 mg PO BID Rx Instructions: must administer immediately before first meal of day/breakfast and dinner omeprazole 20 mg capsule,delayed release(DR/EC) 20 mg PO DAILY rosuvastatin 5 mg tablet 5 mg PO DAILY Prolia 60 mg/mL syringe 60 mg subcut .[id number] Ambulatory Orders: 12 Lead EKG (Routine) Timeframe: [id number] Location: None Selected Ordered By: Dr. Osmin Garrido Referrals / Follow Up: Sanches,Gallo, DO [Primary Care Provider] - Disposition Disposition (needs filled in before D/C Order can be placed): Home, Self Care
--- NOTE | 2024-01-07 08:28 | OP.PCM_ITS ---
Report of Operation Date of Procedure: 01/07/24 Pre-Operative Diagnosis: cystocele Post-Operative Diagnosis: same Surgery/Procedure Performed:: anterior repair, cystoscopy with bilateral ureteral catheterization Surgeon: Carmella Weeks Type of Anesthesia: General Specimen's removed: None Estimated Blood Loss (mL): 5 cc Description of Procedure: The patient is a 53-year-old female who previously had a hysterectomy and rectocele repair. She subsequently developed an anterior defect and now presents for surgical intervention. Informed consent was obtained. The patient was taken to the operating room and placed on the operating room table. Anesthesia monitored the head, neck, airway, IV access and vital signs throughout the case. Once anesthesia was appropriately administered, she was placed into dorsolithotomy and Trendelenburg position and was prepped and draped in usual sterile fashion. A Pleitez catheter was inserted to straight drain and the bladder was emptied. The anterior vaginal wall was isolated and injected submucosally with lidocaine for hemostatic control and hydrostatic dissection. A vertical incision approximately 2 cm in length was then made. Sharp and blunt dissection was performed bilaterally to the area of the bladder neck, down to the area of previous scar tissue at the apex and bilaterally to where the white line was identified. There was no significant defect in the apical support. At this time the pubocervical fascia was brought together in a 2 layer interrupted closure. The first layer of suture was closed with 2-0 Vicryl and the second with 3-0 PDS. When the defect was completely repaired, the mucosa was closed with running interlocking 2-0 Vicryl. The patient was then taken out of [facility] and the Pleitez catheter was removed. The cystoscope was inserted through the urethra under direct visualization into the urinary bladder. The bladder mucosa was visualized in its entirety. There was no area of laceration, foreign body or injury identified. The left ureteral orifice was small and a good ureteral jet was observed. On the right side the orifice is also small and did not accommodate a whistle-tip catheter easily secondary to the angling of her anatomy. A 0.035 Glidewire easily cannulated the right ureteral orifice and advanced without evidence of obstruction or injury beyond the level of the pelvis. At this time the wire and the cystoscope were then removed and the Pleitez catheter was reinserted to straight drain with 10 cc in the balloon. The vagina was packed with Premarin cream and vaginal packing. She was awakened and taken to the recovery room in good condition. There were no complications during this procedure. Grafts/Implants Used: None Complications None Admit VTE Documentation VTE Present on Admission: Yes VTE Mechan Device Prophylaxis: SCD's VTE Pharm Prophylaxis ordered?: Yes
[2024-01-07] MEDS: Estrogens,Conj. 1 Tube 1 DOSE (09:06)
[2024-01-07] MEDS: Lidocaine 1% /Epi 1:100 (50ml) 50 ML VIAL (09:12)
[2024-01-07] MEDS: oxyCODONE 5 MG Tablet PO ×2 (13:36→21:02)
[2024-01-07] MEDS: Acetaminophen 325 MG Tablet PO ×2 (13:36→21:02)
[2024-01-07] MEDS: Ciprofloxacin 500 MG Tablet PO (21:01)
[2024-01-07] MEDS: Atorvastatin Calcium 10 MG Tablet PO (21:01)
[2024-01-07] MEDS: Lactated Ringers 1,000 ML 100 ML IV (21:04)
[2024-01-08 02:41] VITALS: BP 97/57; PULSE 73; RESP 18; TEMP 36.7; O2SAT 100
[2024-01-08] MEDS: oxyCODONE 5 MG Tablet PO ×2 (03:10→09:11)
[2024-01-08] MEDS: Acetaminophen 325 MG Tablet PO ×2 (03:10→09:11)
[2024-01-08 07:05] VITALS: BP 101/61; PULSE 70; RESP 18; TEMP 36.6; O2SAT 100
[2024-01-08 07:13] LABS: Hematocrit 28.7 % (37-47); Mean Corp Hgb Conc 31.4 g/dL (32-36); Mean Corpuscular Hgb 27.6 pg (27.0-32.0); Mean Platelet Vol. 11.5 fl (6.2-12.0); Platelet Count 152 K/mm3 (150-450); RBC Distribution Width CV 14.6 % (11.6-14.6); RBC Distribution Width SD 46.6 fl (35.1-43.9); Red Blood Count 3.26 M/mm3 (4.2-5.4); White Blood Count 7.7 K/mm3 (4.4-11.0)
[2024-01-08] MEDS: Enoxaparin 40 MG/0.4 ML Syringe SC (07:15)
[2024-01-08] MEDS: Lactated Ringers 1,000 ML 100 ML IV (07:16)
[2024-01-08 07:41] LABS: Anion Gap 8 (5-15); BUN 10 mg/dL (7-18); BUN/Creat Ratio 19.2 RATIO (10-20); Calcium,Total 7.9 mg/dL (8.5-10.1); Chloride 109 mmol/L (98-107); Creatinine, Serum 0.52 mg/dL (0.55-1.02); EST Glomerular Filtration Rate 130 mL/min (>60); Est Glom Filt Rate - Afr Amer 157 mL/min (>60); Estimated Creatinine Clearance 96.68 ml/min; Glucose 100 mg/dL (74-106); Potassium 3.8 mmol/L (3.5-5.1); Sodium Level 139 mmol/L (136-145)
--- NOTE | 2024-01-08 08:16 | PN.URO_ITS ---
Subjective Subjective Doing well this morning. No issues overnight. Ambulating and tolerating PO intake. Pain is controlled. Objective Data Objective Data Vital Signs: Vital Signs Temp Pulse Resp BP Pulse Ox O2 Del Method 97.9 F 70 18 101/61 100 Room Air 01/08/24 07:05 01/08/24 07:05 01/08/24 07:05 01/08/24 07:05 01/08/24 07:05 01/08/24 07:26 Oxygen Delivery Method Room Air Weight: 60 kg Body Mass Index (BMI) 23.4 Intake & Output: Intake and Output for Last 24 Hours 01/06/24 01/07/24 01/08/24 23:59 23:59 23:59 Intake Total 1200 / 1200 1000 / 1000 Output Total 1700 / 2950 2049 / 2049 Balance -500 / -1750 -1050 / -1050 Lab / Micro Data 01/08/24 06:27 01/08/24 06:27 Labs: Laboratory Results - last 24 hr 01/08/24 06:27: WBC 7.7, RBC 3.26 L, Hgb 9.0 L, Hct 28.7 L, MCV 88.0, MCH 27.6, MCHC 31.4 L, RDW Std Deviation 46.6 H, RDW Coeff of Don 14.6, Plt Count 152, MPV 11.5, Sodium 139, Potassium 3.8, Chloride 109 H, Carbon Dioxide 22.0, Anion Gap 8, BUN 10, Creatinine 0.52 L, Estim Creat Clear Calc 96.68, Est GFR (MDRD) Af Amer 157, Est GFR (MDRD) Non-Af 130, BUN/Creatinine Ratio 19.2, Glucose 100, C alcium 7.9 L Physical Exam Const alert, oriented x3 and no apparent distress GI soft to palpation, non-tender and non-distended Narrative: Pleitez with clear yellow urine, removed without issue. Vaginal packing removed. Assessment & Plan Assessment/Plan (1) Cystocele: (2) History of breast cancer: PLAN: Plan trial of void home later today
[2024-01-08] MEDS: Venlafaxine XR 37.5 MG Capsule PO (08:57)
[2024-01-08] MEDS: Ciprofloxacin 500 MG Tablet PO (08:57)
[2024-01-08] MEDS: Vibegron 75 MG TABLET PO (08:58)
--- NOTE | 2024-01-08 09:53 | CASEMGMT ---
Social Work SW met with pt to discuss advance directives.? Pt confirms she has completed a living will and health care POA naming her spouse Aden Stringer.? Pt notified that documents are not on file at [facility] and SW requested they be brought in for scanning into the EMR.? JOSIE Dunbar
--- NOTE | 2024-01-08 12:22 | PHA.DC.MC.R ---
Pharmacy [facility] Pharm[facility] Service has performed discharge medication reconciliation and counseling for this patient. The patient's discharge medication list was reviewed for discrepancies and discrepancies were resolved. The patient was counseled on the following discharge medications and changes in medications for homegoing were reviewed. 1. CIPROFLOXACIN 2. PERCOCET 3. ZOFRAN The Reason for Use, instructions for use, and potential side effects were reviewed for all new medications. The patient's questions regarding all of their medications were answered. The patient was able to verbally demonstrate an understanding of their discharge medications. The patient was counselled by Lion Pina PharmD Candidate Medications at Discharge Home Medications calcium carbonate 600 mg-vitamin D3 10 mcg (400 unit) capsule (Calcium 600 with Vitamin D3) 1 cap PO BID 03/19/18 cholecalciferol (vitamin D3) 25 mcg (1,000 unit) tablet 1,000 unit PO DAILY 02/10/19 cyanocobalamin (vitamin B-12) 100 mcg tablet 100 mcg PO DAILY 10/12/20 venlafaxine 37.5 mg capsule,extended release 24 hr 37.5 mg PO DAILY 07/20/21 denosumab 60 mg/mL subcutaneous syringe (Prolia) 60 mg subcut .[id number] 12/31/23 omeprazole 20 mg capsule,delayed release 20 mg PO DAILY 12/31/23 rosuvastatin 5 mg tablet 5 mg PO DAILY 12/31/23 tenapanor 50 mg tablet (Ibsrela) 50 mg PO BID 12/31/23 vibegron 75 mg tablet (Gemtesa) 75 mg PO DAILY 12/31/23 ciprofloxacin HCl 500 mg tablet 500 mg PO BID #6 TABLETS 01/07/24 ondansetron 4 mg disintegrating tablet 4 mg PO Q8H PRN nausea and vomiting #10 tabs 01/07/24 oxycodone-acetaminophen 5 mg-325 mg tablet (Percocet) 1 tab PO Q8H PRN pain 5 days #15 tabs 01/07/24
== END 2024-01-08 13:08 | disposition home or self-care (01) ==
LOC: SDC 10:32 → MS3 10:32
PROVIDERS: Admitting Provider Urology; PCP Student in an Organized Health Care Education/Training Program; Referring Provider Urology; Visit Provider Urology
PROC: (CPT 57260; principal; 2024-01-07 08:15)
DX: N81.11 Cystocele, midline (principal); Z79.899 Other long term (current) drug therapy; E78.00 Pure hypercholesterolemia, unspecified; M85.80 Other specified disorders of bone density and structure, unspecified site; N32.81 Overactive bladder; K59.04 Chronic idiopathic constipation; N39.41 Urge incontinence; Z90.710 Acquired absence of both cervix and uterus
CPT/HCPCS: 57240; 52332; 00942; 36415; 80048; 85027; 93005; 96360; 96361; 96372; 99221; 99252; J7120; C1758; G0378; G0463; J0744; J2405

== ENCOUNTER → 2025-04-14 | Outpatient (CLI) | payer OTHER, SELFPAY ==
--- OUTSIDE RECORDS SUMMARY | 2025-04-14 07:00 | XMS RPT_ITS | CCD ---
Author Organization [facility] ion Partnership [facility] Care Team Providers Care Psychiatric Attendant Name Role Phone Gallo Sanches Primary Care Provider Alex FARRIS, Oliver Frazier Unavailable Gallo Sanches DO Primary Care Provider Janet Edwards Unavailable Gallo Sanches DO Primary Care Provider Janet Edwards Unavailable Gallo Sanches DO Primary Care Provider Janet Edwards Unavailable ESME WISDOM Referring Unavailable GALLO SANCHES Primary Care Unavailable GALLO SANCHES Referring Unavailable GALLO SANCHES Primary Care Unavailable Gallo Sanches DO Primary Care Provider Janet Edwards Unavailable GALLO SANCHES DO Primary Care Physician Neto PT, Shoshana Unavailable Unavailable SULEMA ARREAGA, JEAN-PAUL Reynoso Attending Unavailable GALLO SANCHES DO Primary Care Unavailable GALLO SANCHES DO Primary Care Unavailable MAMADOU FARRIS, DR FELICITA Santana Attending Unavailab GALLO King DO Primary Care Unavailable DR FELICITA CEDILLO MD Attending Unavailab Gallo King DO Primary Care Provider Gallo Sanches Primary Care Provider RYLAND KELLY Attending Unavailable SANCHES, GALLO Primary Care Unavailable RYLAND KELLY Referring Unavailable SANCHES, GALLO Primary Care Unavailable NAE DE LA ROSA Referring Unavailable SANCHES, GALLO Primary Care Unavailable [place] COMPLIANCE ADVISOR.CUSTOMER SALES SPECIALIST, Izabella Kang Unavailable [facility] COMPLIANCE ADVISOR.CUSTOMER SALES SPECIALIST, Rossi Unavailable [place] COMPLIANCE ADVISOR.CUSTOMER SALES SPECIALIST, Izabella Kang Unavailable [facility] COMPLIANCE ADVISOR.CUSTOMER SALES SPECIALIST, Lacey Rodriguez Unavailable IZABEL KANG Attending Unavailable SANCHES, GALLO L Primary Care Unavailable ASHTYN JAVIER Attending Unavailable SANCHES, GALLO L Primary Care Unavailable Felicita Cedillo Attending Unavailable Felicita Cedillo Admitting Unavailable Sanches, Gallo Primary Care Unavailable Sanches, Gallo Primary Care Unavailable Sanches, Gallo Referring Unavailable Sanches, Gallo Attending Unavailable SANCHES DO, GALLO Primary Care Physician MYRON DO, GALLO Primary Care Unavailable MAMADOU FARRIS, DR FELICITA Santana Attending Unavailab le SANCHES, GALLO L Primary Care Unavailable SANCHES, GALLO L Primary Care Unavailable ESME WISDOM Attending Unavailable DONOHUEYOVANI Burleson Attending Unavailable SANCHES, GALLO L Primary Care Unavailable LUNACECI Attending Unavailable SANCHES, GALLO L Primary Care Unavailable SANCHES, GALLO L Referring Unavailable SANCHES, GALLO L Primary Care Unavailable SANCHES, GALLO L Referring Unavailable SANCHES, GALLO L Primary Care Unavailable SANCHES, GALLO L Attending Unavailable SANCHES, GALLO L Primary Care Unavailable LUNACECI Attending Unavailable SANCHES, GALLO L Primary Care Unavailable YOVANI DONOHUE Attending Unavailable ELIAS HERNANDEZ Referring Unavailable SANCHES, GALLO L Primary Care Unavailable LUNA CECI Referring Unavailable SANCHES, GALLO L Primary Care Unavailable LUNA, CECI Referring Unavailable SANCHES, GALLO L Primary Care Unavailable JASON HESTER Attending Unavailable SANCHES, GALLO L Primary Care Unavailable LUNA, CECI Attending Unavailable SANCHES, GALLO L Primary Care Unavailable TKIA CORREA Attending Unavaila ble LUNA, CECI Referring Unavailable SANCHES, GALLO L Primary Care Unavailable ESME WISDOM Referring Unavailable SANCHES, GALLO L Primary Care Unavailable ESME WISDOM Referring Unavailable SANCHES, GALLO L Primary Care Unavailable Allergies Allergy Classification Reported Allergen(s) Allergy Type Date of Onset Reaction(s) Facility nickel (2 sources) nickel Drug Allergy 3 [facility] Penicillins (antibiotic) (2 sources) Penicillins Drug Allergy 6 [facility] (10 sources) Penicillins; Translations: [PENICILLINS] Propensity to adverse reactions to drug 6 [place], [place] (1 source) Penicillin G Drug Allergy 7 hiv all over body [facility] (20 sources) Penicillins; Translations: [penicillins] Drug Allergy 6 [facility] (20 sources) Penicillins Drug Allergy 6 [facility] (20 sources) nickel; Translations: [NICKEL] Drug Allergy 3 [facility] (1 source) nickel sulfate Drug Allergy 3 [facility] (2 sources) Penicillins; Translations: [penicillins] Drug Allergy 6 [facility] (12 sources) Penicillins Drug Allergy 6 [facility] (1 source) nickel Drug Allergy 4 [facility] (1 source) Penicillins Drug allergy (disorder) 4 [facility] Medications Current Medications Medication Drug Class(es) Dates Sig (Normalized) Sig (Original) acetaminophen 325 mg / HYDROcodone bitartrate 5 mg oral tablet (5 sources) Opioid Agonist Start: 11-12-2018 End: 01-11-2022 take 1 tablet by mouth every six hours as needed for pain acetaminophen-hyd rocodone 325 mg-5 mg oral tablet Dose = 1 tab(s), Oral, q6h, PRN for pain, # 12 tab(s), 0 Refill(s) Start Date: 11/12/18 Status: Ordered Medication Dispense Status: Completed Quantity: 12.0 Unit: tab(s) Total Allowed Fills: 1 Fills Dispensed: 0 Comment on above: Take 1 tablet by lio th every 6 hours as needed for pain for up to 4 days. Do not start before January 07, 2022. calcium carbonate 1500 mg oral tablet (5 sources) Start: 07-08-2018 calcium (as carbonate) 600 mg oral tablet Dose : 1,200 mg = 2 tab(s), Oral, Daily, 0 Refill(s) Start Date: 07/08/18 Status: Ordered Medication Dispense Status: Completed Total Allowed Fills: 1 Fills Dispensed: 0 take 1 tablet by mouth once destini y calcium carbonate (OSCAL) 500 MG TABS tablet Take 500 mg by mouth daily 0 Active Calcium Carbonate / vitamin D3 (20 sources) CALCIUM CARBONAT E/VITAMIN D3 (VITAMIN D-3 ORAL) Take by mouth twice daily. Active CALCIUM CARBONAT E/VITAMIN D3 (VITAMIN D-3 ORAL) Take by mouth twice daily. 0 Active Comment on above: Take by mouth twice daily. clarithromycin 500 mg oral tablet (3 sources) Macrolide Antimicrobial Start: 11-12-19 End: 11-26-19 take 1 tablet by mouth twice daily clarithromycin (BIAXIN) 500 mg Take 1 tablet by mouth twice daily for 14 days. 28 tablet 0 11/11/2021 11/25/2021 Active Comment on above: Take 1 tablet by lio twice daily for 14 days. COMPRESSION SLEEVE (20 sources) Start: 04-25-20 COMPRESSION SLEEVE as directed. Breast cancer. 20-30 mmHg 2 Each 04/25/2022 Active Start: 04-25-2022 COMPRESSION SL EEVE as directed. Breast cancer. 20-30 mmHg 2 Each 0 04/25/2022 Active Comment on above: as directed. Breast cancer. 20-30 mmHg estradiol 0.1 mg/ml vaginal cream (8 sources) Estrogen Start: 12-19-2024 estradiol (ESTRACE) 0.01 % (0.1 mg/gram) vaginal cream INSERT 1 GRAM VAGINALLY 3 TIMES A WEEK BEFORE BED 12/19/2024 Active evening primrose oil 1000 mg oral capsule (20 sources) Start: 07-08-2018 take 1 capsule by mouth once daily Evening [employer] Oil 1000 mg oral capsule Dose : 500 mg =, Oral, Daily, 0 Refill(s) Start Date: 07/08/18 Status: Ordered Medication Dispense Status: Completed Total Allowed Fills: 1 Fills Dispensed: 0 End: 04-03-2022 take 1 capsule by mouth once daily Evening [employer] Oil (EVENING PRIMROSE) 500 mg cap Take 500 mg by mouth once daily. 04/03/2022 Discontinued (Course of therapy completed) Comment on above: Take 500 mg by mouth once daily. famotidine 20 mg oral tablet (20 sources) Histamine-2 Receptor Antagonist Start: 024 End: 025 take 1 tablet by mouth every twelve hours as needed for gastroesophageal reflux disease and gastroesophageal reflux disease famotidine (PEPCID) 20 mg tablet Indications: Gastroesophageal reflux disease, unspecified whether esophagitis present TAKE 1 TABLET TWICE A DAY NEEDED 180 tablet 1 01/16/2025 Active Start: 04-28-2022 End: 06-15-2022 take 1 tablet by mouth every twenty-four hours as needed famotidine (PEPCID) 20 mg tablet Take 1 tablet by mouth at bedtime as needed. 30 tablet 2 05/16/2022 06/15/2022 Start: 11-05-2021 End: 12-16-2021 take 1 tablet by mouth twice daily famotidine (PEPCID) 20 mg tablet Take 1 tablet by mouth twice daily. 180 tablet 3 11/05/2021 12/16/2021 Discontinued Comment on above: Take 1 tablet by lio th twice daily. Take 1 tablet by lio th at bedtime as needed. ferrous sulfate 325 mg oral tablet (5 sources) Start: 07-08-2018 IRON (ferrous sulfate 325 mg) 65 mg oral tablet Dose : 325 mg = 1 tab(s), Oral, BIDM, Take with food., # 60 tab(s), 3 Refill(s) Start Date: 07/08/18 Status: Ordered Medication Dispense Status: Completed Quantity: 60.0 Unit: tab(s) Total Allowed Fills: 1 Fills Dispensed: 0 Ferrous Sulfate (IRON) 90 (18 Fe) MG TABS Take by mouth 0 Active fluticasone propionate 0.05 mg/actuat metered dose nasal spray (3 sources) Corticosteroid Start: 08-14-2018 take 1 dose nasal route twice daily Flonase 50 mcg/inh nasal spray Dose = 1 spray(s), Nostril, each, BID, # 9.9 mL, 0 Refill(s) Start Date: 08/14/18 Status: Ordered Medication Dispense Status: Completed Quantity: 9.9 Unit: mL Total Allowed Fills: 1 Fills Dispensed: 0 GEMTESA 75 mg tablet (20 sources) Start: 09-01-2022 take 1 tablet by mouth once daily GEMTESA 75 mg tablet Take 75 mg by mouth once daily. 09/01/2022 Active Start: 09-01-2022 take 1 tablet by lio th once daily GEMTESA 75 mg tablet Take 75 mg by mouth once daily. 0 09/01/2022 Active Comment on above: Take 75 mg by mouth once daily. Gemtesa 75 MG tablet (1 source) Start: 3 take 1 tablet by mouth in the morning Gemtesa 75 MG tablet Take 75 mg by mouth in the morning. 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 If Pt. has a central line or IVAD, may access for administration according to line specific nursing protocol.Once exam is complete flush line and de-access according to line specific nursing protocol in the MR contrast administration guidelines link 1 Each 0 01/26/2024 01/27/2024 Active Start: 05-05-2022 End: 05-06-2022 iv contrast (will be provide d with radiology test) Indications: Encounter for breast cancer screening using non-mammogram modality , History of breast cancer MRI Breast CORY Inject, intravenously, once for 1 dose. No IV access, insert saline lock prior to the beginning of sedation, infusion, injection of imaging exam. Discontinue saline lock post exam. If Pt has a central line or IVAD, may access for administration according to line specific nursing protocol. Once exam is complete flush line and de-access according to line specific nursing protocol in the MR contrast administration guidelines link 1 Each 0 05/05/2022 05/06/2022 Active Comment on above: MRI Breast CORY Injec t, intravenously, once for 1 dose. No IV access, insert saline lock prior to the beginning of sedation, infusion, injection of imaging exam. Discontinue saline lock post exam. If Pt has a central line or IVAD, may access for administration according to line specific nursing protocol. Once exam is complete flush line and de-access according to line specific nursing protocol in the MR contrast administration guidelines link KRILL OIL ORAL (20 sources) End: 11-01-2021 KRILL OIL ORAL Take by mouth. 11/01/2021 Discontinued take 800 mg by mouth once daily KRILL OIL ORAL Take 800 mg by mouth once daily. Active take 800 mg by mouth once daily KRILL OIL ORAL Take 800 mg by mouth once daily. 0 Active End: 11-01-2021 KRILL OIL ORAL Take by mouth . 0 11/01/2021 Discontinued KRILL OIL ORAL T david by mouth. 0 Active Comment on above: Take by mouth. Take 800 mg by mouth once daily. mecobalamin (20 sources) take 1 tablet by mouth once daily mecobalamin (B12 ACTIVE ORAL) Take 1 tablet by mouth once daily. Active take 1 tablet by mouth once destini y mecobalamin (B12 ACTIVE ORAL) Take 1 tablet by mouth once daily. 0 Active Comment on above: Take 1 tablet by lio th once daily. metroNIDAZOLE 500 mg oral tablet (3 sources) Nitroimidazole Antimicrobial Start: 11-11-2021 End: 11-25-2021 metroNIDAZOLE (FLAGYL) 500 mg tablet Take 1 tablet by mouth three times daily for 14 days. FOR 7 DAYS. 42 tablet 0 11/11/2021 11/25/2021 Active Comment on above: Take 1 tablet by lio th three times daily for 14 days. FOR 7 DAYS. omeprazole 20 mg delayed release oral capsule (20 sources) Proton Pump Inhibitor Start: 12-19-2021 End: 10-10-2024 omeprazole (PRILOSEC) 20 mg capsule Indications: Gastroesophageal reflux disease, unspecified whether esophagitis present TAKE 1 CAPSULE ONCE DAILY 90 capsule 2 10/10/2024 Active Start: 12-02-2021 End: 12-16-2021 take 1 capsule by mouth twice daily omeprazole (PRILOSEC) 20 mg capsule Take 1 capsule by mouth twice daily for 14 days. 28 capsule 0 12/02/2021 12/16/2021 Discontinued Start: 11-11-2021 End: 11-25-2021 take 1 capsule by mouth twice daily omeprazole (PRILOSEC) 20 mg capsule Take 1 capsule by mouth twice daily for 14 days. 28 capsule 0 11/11/2021 Active Start: 10-16-2021 End: 12-16-2021 take 1 capsule by mouth once daily before breakfast omeprazole (PRILOSEC) 20 mg capsule Indications: Hoarseness , Cough Take 1 capsule by mouth daily before breakfast. 1/2 hr before meal. 30 capsule 3 10/16/2021 12/16/2021 Discontinued Comment on above: Take 1 capsule by mo ut daily before breakfast. 1/2 hr before meal. Take 1 capsule by mo uth twice daily for 14 days. Take 1 capsule by mo uth once daily. plecanatide 3 mg oral tablet (3 sources) Start: 02-08-20 take 1 tablet by mouth once daily plecanatide (TRULANCE) 3 mg tablet Indications: Irritable bowel syndrome with constipation Take 1 tablet by mouth once daily. 30 tablet 1 02/07/2025 Active predniSONE 20 mg oral tablet (2 sources) Start: 11-26-19 End: 12-01-19 take 2 tablets by mouth once daily predniSONE (DELTASONE) 20 mg tablet Indications: Sinobronchitis Take 2 tablets by mouth once daily for 5 days. 10 tablet 0 11/25/2022 11/30/2022 Active Comment on above: Take 2 tablets by mo ut once daily for 5 days. prucalopride 2 mg oral tablet (5 sources) Start: 03-09-20 End: 04-11-20 take 1 tablet by mouth once daily prucalopride 2 mg tablet (MOTEGRITY) Indications: Irritable bowel syndrome with constipation Take 1 tablet by mouth once daily. 90 tablet 3 04/11/2025 Active Start: 01-30-2025 End: 02-07-2025 take 1 tablet by mouth once daily prucalopride 2 mg tablet (MOTEGRITY) Indications: Irritable bowel syndrome with constipation Take 1 tablet by mouth once daily. 30 tablet 1 01/30/2025 02/07/2025 Discontinued (Side Effects) rosuvastatin calcium 5 mg oral tablet (20 sources) HMG-CoA Reductase Inhibitor Start: 10-12-2023 End: 10-10-2024 take 1 tablet by mouth once daily at bedtime rosuvastatin (CRESTOR) 5 mg tablet Take 1 tablet by mouth daily at bedtime. 90 tablet 3 10/10/2024 Active Start: 07-17-2023 End: 10-09-2023 take 1 tablet by mouth once daily at bedtime rosuvastatin (CRESTOR) 5 mg tablet Take 1 tablet by mouth daily at bedtime. 90 tablet 3 07/17/2023 10/09/2023 Discontinued Comment on above: Take 1 tablet by lio th daily at bedtime. tamoxifen 20 mg oral tablet (20 sources) Estrogen Agonist/Antagonist Start: 8 End: 3 take 1 tablet by mouth once daily tamoxifen 20 mg oral tablet TAKE 1 TABLET BY MOUTH ONCE DAILY. Start Date: 07/08/18 Status: Ordered Medication Dispense Status: Completed Total Allowed Fills: 1 Fills Dispensed: 0 Comment on above: Take 1 tablet (20 mg ) by mouth once daily. 24 hr venlafaxine 37.5 mg extended release oral capsule (20 sources) Serotonin and Norepinephrine Reuptake Inhibitor Start: 1 End: 5 venlafaxine ER (EFFEXOR XR) 37.5 mg 24 hr capsule Indications: History of breast cancer , Carcinoma of upper-outer quadrant of right breast in female, estrogen receptor positive (HCC) , Hot flashes TAKE 1 CAPSULE ONCE DAILY 90 capsule 3 09/19/2024 Active Comment on above: TAKE 1 CAPSULE ONCE DAILY Vitamin C 500 mg oral tablet (3 sources) Start: 8 Vitamin C 500 mg oral tablet Dose : 500 mg = 1 tab(s), Oral, qDay, # 30 tab(s), 0 Refill(s) Start Date: 07/08/18 Status: Ordered Medication Dispense Status: Completed Quantity: 30.0 Unit: tab(s) Total Allowed Fills: 1 Fills Dispensed: 0 Start: 07-08-2018 Vitamin C 500 mg oral tablet Dose : 500 mg = 1 tab(s), Oral, qDay, # 30 tab(s), 0 Refill(s) Start Date: 07/08/18 Status: Ordered vitamin d 1000 unt oral tablet (1 source) take 1 tablet by mouth once daily vitamin D (CHOLECALCIFEROL) 1000 UNIT TABS tablet Take 1,000 Units by mouth daily 0 Active Vitamin D3 2000 intl units oral capsule (3 sources) Start: 07-08-2018 Vitamin D3 2000 intl units oral capsule Dose : 2,000 unit(s) = 1 cap(s), Oral, Daily, 0 Refill(s) Start Date: 07/08/18 Status: Ordered Medication Dispense Status: Completed Total Allowed Fills: 1 Fills Dispensed: 0 Start: 07-08-2018 Vitamin D3 200 0 intl units oral capsule Dose : 2,000 unit(s) = 1 cap(s), Oral, Daily, 0 Refill(s) Start Date: 07/08/18 Status: Ordered Completed/Discontinued Medications Medication Drug Class(es) Dates Sig (Normalized) Sig (Original) acetaminophen 500 mg oral tablet (14 sources) Start: 01-07-2022 End: 02-25-2022 take 1 tablet by mouth every six hours as needed acetaminophen (ACETAMINOPHEN EXTRA STRENGTH) 500 mg tablet Take 1 tablet by mouth every 6 hours as needed for pain. 40 tablet 01/07/2022 02/25/2022 Discontinued (Course of therapy completed) Comment on above: Take 1 tablet by lio every 6 hours as needed for pain. [id number] 200 actuat albuterol 0.09 mg/actuat metered dose inhaler (20 sources) beta2-Adrenergic Agonist Start: 11-25-2022 End: 03-27-2023 take 2 puff(s) by inhalation every four hours as needed for wheezing albuterol HFA (VENTOLIN HFA) 90 mcg/actuation inhaler Indications: Sinobronchitis Inhale 2 Puffs as instructed every 4 hours as needed for wheezing/shortness of breath. 1 Each 11/25/2022 03/27/2023 Discontinued (Course of therapy completed) Comment on above: Inhale 2 Puffs as in structed every 4 hours as needed for wheezing/shortness of breath. ascorbic acid 500 mg extended release oral capsule (20 sources) Vitamin C Start: 03-19-2018 End: 07-15-2022 Ascorbic Acid 500 mg cpER Indications: Hoarseness , Dysphagia, unspecified type Take by mouth. 03/19/2018 07/15/2022 Discontinued (Discontinued by Patient) take 1 tablet by mouth once destini y C 500 500 MG TABS 1 tablet by mouth once a day ascorbic acid (vitamin c) [id number] Ramila Cartagena LPN Comment on above: Take by mouth. aspirin 81 mg delayed release oral tablet (12 sources) Platelet Aggregation Inhibitor, Nonsteroidal Anti-inflammatory Drug Start: 2021 End: 2021 take 1 tablet by mouth once daily at breakfast aspirin, enteric coated (ADULT LOW DOSE ASPIRIN) 81 mg EC tablet Take 1 tablet by mouth daily with breakfast for 21 days. 21 tablet 01/07/2022 02/25/2022 Discontinued (Course of therapy completed) Comment on above: Take 1 tablet by [facility] daily with breakfast for 21 days. betamethasone 3 mg/ml / betamethasone acetate 3 mg/ml injectable suspension (1 source) Corticosteroid Start: 2022 End: 2022 betamethasone acetate-betamethasone sodium phosphate 12 mg injection (CELESTONE) Calcium (1 source) Phosphate Binder, Calcium Start: 2016 take 2 tablets by mouth once daily CALCIUM 600 MG ORAL TABLET 2 tablet by mouth once a day CALCIUM 600 MG ORAL TABLET Ramila Cartagena LPN cefdinir 300 mg oral capsule (4 sources) Cephalosporin Antibacterial Start: 2022 End: 2022 take 1 capsule by mouth twice daily cefdinir (OMNICEF) 300 mg capsule Indications: Sinobronchitis Take 1 capsule by mouth twice daily for 10 days. 20 capsule 0 11/25/2022 12/05/2022 Comment on above: Take 1 capsule by [facility] twice daily for 10 days. cholecalciferol 0.025 mg oral tablet (20 sources) Vitamin D Start: 2016 take 2 tablets by mouth once daily VITAMIN D3 25 MCG (1000 UT) TABS 2 tablet by mouth once a day cholecalciferol (vitamin d3) [id number] Ramila Cartagena LPN Start: 06-04-2017 End: 07-15-2022 cholecalciferol (VITAMIN D3) 1,000 unit tab tablet Indications: Hoarseness , Dysphagia, unspecified type Take by mouth. 06/04/2017 07/15/2022 Discontinued (Discontinued by Patient) Comment on above: Take by mouth. clindamycin 300 mg oral capsule (1 source) Lincosamide Antibacterial Start: 01-02-2021 CLEOCIN 300 MG CAPS Take 1 capsule by mouth prior to dental appointment and take 1 capsule by mouth after dental appointment clindamycin hcl [id number] Ramila Cartagena LPN 1 ml denosumab 60 mg/ml prefilled syringe (20 sources) RANK Ligand Inhibitor Start: 11-07-2024 End: 12-07-2024 denosumab 60 mg injection (PROLIA) Start: 04-25-2024 End: 05-25-2024 denosumab 60 mg injection (P ROLIA) Start: 10-15-2023 End: 04-25-2024 denosumab (PROLIA SUBCUTANEO US) 10/15/2023 04/25/2024 Discontinued Start: 10-15-2023 denosumab (PRO NARA SUBCUTANEOUS) 10/15/2023 Active Start: 10-15-2023 denosumab (PRO NARA SUBCUTANEOUS) Start: 10-07-2023 End: 11-22-2023 denosumab 60 mg injection (P ROLIA) docusate sodium 100 mg oral capsule (20 sources) End: 07-01-2023 docusate sodium (COLACE) 100 mg capsule Indications: Hoarseness , Dysphagia, unspecified type Take by mouth. 07/01/2023 Discontinued take 2 capsules by mouth once da francisca COLACE 100 MG CAPS 2 capsule by mouth once a day docusate sodium [id number] Ramila Cartagena LPN Comment on above: Take by mouth. doxycycline hyclate 100 mg oral tablet (13 sources) Tetracycline-cla ss Drug Start: 11-19-2022 End: 11-29-2022 take 1 tablet by mouth twice daily doxycycline (VIBRA-TABS) 100 mg tablet Indications: Sore throat , Congestion of upper airway , Wheezing , Acute ear pain, bilateral , Non-recurrent acute serous otitis media of both ears Take 1 tablet by mouth twice daily for 10 days. 20 tablet 0 11/19/2022 11/29/2022 Start: 03-10-2022 End: 05-16-2022 take 1 tablet by mouth twice daily doxycycline (VIBRA-TABS) 100 mg tablet Take 100 mg by mouth twice daily. 0 03/10/2022 05/16/2022 Discontinued Comment on above: Take 100 mg by mouth twice daily. Take 1 tablet by [facility] twice daily for 10 days. /EC (1 source) take 1 capsule by mouth once daily omeprazole capsule,delayed release 1 capsule by mouth once a day /MC Cartagena LPN gabapentin 300 mg oral capsule (1 source) Anti-epileptic Agent Start: 11-07-19 End: 10-10-19 22 take 1 capsule by mouth twice daily gabapentin (NEURONTIN) 300 mg capsule Indications: Herpes zoster without complication Take 1 capsule by mouth twice daily for 15 days. 30 capsule 11/06/2020 10/09/2021 Discontinued 2 ml sodium hyaluronate 10 mg/ml prefilled syringe (20 sources) Start: 03-30-20 23 End: 01-26-20 24 EYALURONIC ACID 10 mg/mL(mw 2.4 -3.6 million) injection 03/30/2023 01/26/2024 Discontinued ipratropium bromide 0.021 mg/actuat metered dose nasal spray (1 source) Anticholinergic Start: 01-11-20 End: 10-17-19 take 2 spray(s) nasal route four times daily as needed Ipratropium [place] (ATROVENT) 21 mcg (0.03 %) nasal spray Use 2 Sprays in each nostril four times daily as needed (for runny nose). 1 Bottle 11 01/10/2021 10/16/2021 Discontinued Iron (1 source) Start: 07-29-20 17 take 2 tablets by mouth once daily IRON TABLET 29 mg 29 mg 2 tablet by mouth once a day IRON TABLET 29 mg 29 mg Ramila Cartagena LPN IRON, FERROUS SULFATE, ORAL (20 sources) End: 04-03-20 IRON, FERROUS SULFATE, ORAL Take by mouth once daily. 04/03/2022 Discontinued (Course of therapy completed) End: 04-03-2022 IRON, FERROUS SULFATE, ORAL Take by mouth once daily. 0 04/03/2022 Discontinued (Course of therapy completed) IRON, FERROUS JAEGER LFATE, ORAL Take by mouth once daily. 0 Active Comment on above: Take by mouth once d aily. Lactobacillus acidophilus (20 sources) End: 12-01-2023 Lactobacillus acidophilus (PROBIOTIC ORAL) Take by mouth. 12/01/2023 Discontinued End: 12-01-2023 Lactobacillus acidophilus (P ROBIOTIC ORAL) Take by mouth. 0 12/01/2023 Discontinued Lactobacillus ac idophilus (PROBIOTIC ORAL) Take by mouth. 0 Active Comment on above: Take by mouth. 10 ml lidocaine hydrochloride 10 mg/ml injection (1 source) Antiarrhythmic, Amide Local Anesthetic Start: End: lidocaine (PF) 10 mg/mL (1 %) 3 mL injection (XYLOCAINE) linaclotide 0.072 mg oral capsule (3 sources) Guanylate Cyclase-C Agonist Start: 3 take 1 capsule by mouth once daily linaCLOtide (LINZESS) 72 mcg capsule Indications: Chronic constipation Take 1 capsule by mouth once daily. Administer on an empty stomach. Swallow whole; DO NOT crush or chew. 30 capsule 1 04/10/2023 Active Comment on above: Take [address] [facility] once daily. Administer on an empty stomach. Swallow whole; DO NOT crush or chew. loratadine 10 mg oral capsule (20 sources) End: 5 loratadine 10 mg cap Take by mouth. 01/02/2025 Discontinued Comment on above: Take by mouth. MEDICATION, NON-DATABASE (4 sources) End: 2 MEDICATION, NON-DATABASE Take by mouth once daily. Tumeric 11/01/2021 Discontinued End: 11-01-2021 MEDICATION, NON-DATABASE Sylvester e by mouth once daily. Tumeric 0 11/01/2021 Discontinued MEDICATION, NON- DATABASE Take by mouth once daily. Tumeric 0 Active Comment on above: Take by mouth once d aily. Tumeric meloxicam 7.5 mg oral tablet (20 sources) Nonsteroidal Anti-inflammatory Drug Start: 01-12-2024 End: 04-12-2024 meloxicam (MOBIC) 7.5 mg tablet 01/12/2024 04/12/2024 Discontinued Start: 07-17-2023 End: 12-01-2023 take 1 tablet by mouth every twelve hours meloxicam (MOBIC) 7.5 mg tablet Take 1 tablet by mouth every 12 hours. 07/17/2023 12/01/2023 Discontinued Start: 10-31-2022 End: 03-27-2023 meloxicam (MOBIC) 15 mg tabl et Take 1 tablet by mouth once daily. For 14 days then as needed. Take with a meal 30 tablet 1 10/31/2022 03/27/2023 Discontinued (Course of therapy completed) Start: 07-15-2022 End: 09-16-2022 meloxicam (MOBIC) 15 mg tabl et Take 1 tablet by mouth once daily. For 14 days then as needed. Take with a meal 30 tablet 1 07/15/2022 09/16/2022 Discontinued Comment on above: Take 1 tablet by lio th once daily. For 14 days then as needed. Take with a meal Take 1 tablet by lio th every 12 hours. metaxalone 800 mg oral tablet (2 sources) Start : 11-17 End: 12-17 take 0.5 tablet by mouth twice daily as needed for pain metaxalone (SKELAXIN) 800 mg tablet Take 0.5 tablets by mouth twice daily as needed for pain (or Muscle Spasms). FOR PAIN OR MUSCLE SPASMS. 60 tablet 0 11/17/2022 11/19/2022 Discontinued Comment on above: Take 0.5 tablets by mouth twice daily as needed for pain (or Muscle Spasms). FOR PAIN OR MUSCLE SPASMS. methocarbamol 500 mg oral tablet (8 sources) Muscle Relaxant Start : 01-07 End: 02-05 take 500-1000 mg by mouth every six hours as needed methocarbamol (ROBAXIN) 500 mg tablet Take 1-2 tablets by mouth four times daily as needed (for muscle spasms or pain). 50 tablet 01/07/2022 02/05/2022 Discontinued (Course of therapy completed) Comment on above: Take 1-2 tablets by mouth four times daily as needed (for muscle spasms or pain). methylPREDNISolone (3 sources) Corticosteroid Start : 11-19 End: 11-25 methylPREDNISolone (MEDROL, JD,) 4 mg Dose-Pack Indications: Sore throat , Congestion of upper airway , Wheezing , Acute ear pain, bilateral , Non-recurrent acute serous otitis media of both ears Follow dosing instructions, take with food. 21 tablet 0 11/19/2022 11/25/2022 Comment on above: Follow dosing instru ctions, take with food. naproxen 500 mg oral tablet (8 sources) Nonsteroidal Anti-inflammatory Drug Start : 01-07 End: 06-28 -2022 take 1 tablet by mouth twice daily at mealtime naproxen (NAPROSYN) 500 mg tablet Take 1 tablet by mouth twice daily with meals for 21 days. 42 tablet 01/07/2022 2022 End: 10-09-2021 take 1 tablet by mouth twice daily at mealtime naproxen (NAPROSYN) 250 mg tablet Take 250 mg by mouth twice daily with meals. 10/09/2021 Discontinued Comment on above: Take 1 tablet by lio th twice daily with meals for 21 days. ondansetron 8 mg oral tablet (17 sources) Serotonin-3 Receptor Antagonist Start: End: take 1 tablet by mouth every eight hours as needed for nausea ondansetron (ZOFRAN) 8 mg tablet TAKE 1 TABLET BY MOUTH EVERY EIGHT HOURS NEEDED NEEDED FOR NAUSEA OR VOMITING 0 03/10/2022 05/16/2022 Discontinued Start: 01-07-2022 End: 01-21-2022 take 1 tablet by mouth every eight hours as needed ondansetron orally disintegrating (ZOFRAN ODT) 4 mg disintegrating tablet Take 1 tablet by mouth every 8 hours as needed for nausea/vomiting. 12 tablet 01/07/2022 01/21/2022 Discontinued (Course of therapy completed) Start: 08-14-2018 Zofran 4 mg or al tablet Dose : 4 mg = 1 tab(s), Oral, q8h, # 90 tab(s), 0 Refill(s) Start Date: 08/14/18 Status: Ordered Medication Dispense Status: Completed Quantity: 90.0 Unit: tab(s) Total Allowed Fills: 1 Fills Dispensed: 0 Comment on above: Take 1 tablet by lio th every 8 hours as needed for nausea/vomiting. TAKE 1 TABLET BY LIO TH EVERY EIGHT HOURS NEEDED NEEDED FOR NAUSEA OR VOMITING oxyCODONE hydrochloride 5 mg oral capsule (13 sources) Opioid Agonist Start: 07-17-2023 End: 12-01-2023 oxyCODONE ir (OXYIR) 5 mg capsule 1-2 BY MOUTH EVERY 4-6 HOURS NEEDED 07/17/2023 12/01/2023 Discontinued Comment on above: 1-2 BY MOUTH EVERY 4 -6 HOURS NEEDED polyethylene glycol 3350 [id number] mg powder for oral solution (14 sources) Osmotic Laxative Start: 07-20-2021 End: 12-16-2021 polyethylene glycol 3350 (MIRALAX, GLYCOLAX) 17 gram/dose powder Indications: Hoarseness , Dysphagia, unspecified type Take by mouth. 0 07/20/2021 12/16/2021 Discontinued Comment on above: Take by mouth. Polyethylene Glycols (1 source) Miralax by mouth once a day polyethylene glycol 3350 Ramila Cartagena LPN polymyxin b 33858 unt/ml / trimethoprim 1 mg/ml ophthalmic solution (8 sources) Dihydrofolate Reductase Inhibitor Antibacterial, Polymyxin-class Antibacterial Start: 01-10-2022 End: 05-16-2022 trimethoprim-polymyxin (POLYTRIM) 10,000 unit- 1 mg/mL ophthalmic solution INSTILL 1 DROP INTO AFFECTED EYE EVERY 2 HOURS TODAY, THEN 4 TIMES A DAY FOR 5 TO 7 DAYS 0 01/10/2022 05/16/2022 Discontinued Comment on above: INSTILL 1 DROP INTO AFFECTED EYE EVERY 2 HOURS TODAY, THEN 4 TIMES A DAY FOR 5 TO 7 DAYS romosozumab (20 sources) Start: 09-25-2022 End: 10-07-2023 romosozumab-aqqg 210 mg injection (EVENITY) Start: 09-25-2022 End: 10-20-2023 romosozumab-aqqg 210 mg inje ction (EVENITY) End: 10-07-2023 inject 210 mg by subcutaneous injection every month romosozumab-aqqg (EVENITY) 105 mg/1.17 mL syrg syringe Inject 210 mg subcutaneously once every month. 10/07/2023 Discontinued Comment on above: Inject 210 mg subcut aneously once every month. tenapanor 50 mg oral tablet (20 sources) Start: 023 End: 025 take 1 tablet by mouth twice daily at mealtime IBSRELA 50 mg tablet Indications: Irritable bowel syndrome with constipation TAKE ONE TABLET BY MOUTH TWICE DAILY WITH MEALS 60 tablet 5 10/13/2024 01/30/2025 Discontinued Comment on above: Take 1 tablet (50 mg ) by mouth two times a day. With food take one tablet by m outh twice daily with food Take 1 tablet (50 mg ) by mouth two times a day with meals. triamcinolone acetonide 0.25 mg/ml topical cream (20 sources) Corticosteroid Start: End: triamcinolone (KENALOG) 0.025 % cream PLEASE SEE ATTACHED FOR DETAILED DIRECTIONS 01/21/2024 07/04/2024 Discontinued Start: 11-13-2022 End: 02-11-2023 take 2 spray(s) by inhalation once daily triamcinolone acetonide (NASACORT AQ) 55 mcg nasal inhaler Use 2 Sprays in the nose once daily. 16.9 mL 5 11/13/2022 02/11/2023 End: 01-21-2022 take 2 spray(s) by inhalation once daily triamcinolone acetonide (NASACORT) 55 mcg nasal inhaler Use 2 Sprays in the nose once daily. 01/21/2022 Discontinued (Course of therapy completed) Comment on above: Use 2 Sprays in the nose once daily. turmeric-turmeric root extract (1 source) take 1 capsule by mouth once daily TURMERIC 500 MG CAPS 1 capsule by mouth once a day turmeric-turmeric root extract [id number] Cheyenne Elam RN turmeric-turmeric root extract 450-50 mg cap (20 sources) End: 09-16-2022 turmeric-turmeric root extract 450-50 mg cap Indications: Hoarseness , Dysphagia, unspecified type Take by mouth. 09/16/2022 Discontinued End: 09-16-2022 turmeric-turmeric root extra ct 450-50 mg cap Indications: Hoarseness , Dysphagia, unspecified type Take by mouth. 0 09/16/2022 Discontinued turmeric-turmeri c root extract 450-50 mg cap Indications: Hoarseness , Dysphagia, unspecified type Take by mouth. 0 Active Comment on above: Take by mouth. vitamin B12 (1 source) Vitamin B12 take 1 tablet by lio th once daily Vitamin B12 1 tablet by mouth once a day Vitamin B12 Ramila Cartagena LPN Problems Active Problems Problem Classification Problem Date Documented Da te Episodic/Chronic Allergic reactions (5 sources) Non-celiac gluten sensitivity; Translations: [Non-celiac gluten sensitivity] Onset: 5 02-01-2024 Chronic Anxiety disorders (20 sources) Panic disorder without agoraphobia; Translations: [Panic disorder [episodic paroxysmal anxiety]] 11-11-2007 Chronic Asthma (1 source) Uncomplicated asthma; Translations: [Unspecified asthma, uncomplicated] 01-13-2024 Chronic Cancer of breast (20 sources) Malignant tumor of breast ; Translations: [Malignant neoplasm of unspecified site of right female breast] Onset: 7 07-30-2017 Chronic Complication of device; implant or graft (2 sources) Capsular breast contracture of breast implant; Translations: [Capsular contracture of breast implant, initial encounter] Onset: 2 10-24-2021 Episodic Diseases of white blood cells (1 source) Granulomatous disorder; 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] 01-15-2024 Chronic Disorders of lipid metabolism (20 sources) Dyslipidemia; Translations: [Hyperlipidemia, unspecified] Onset: 3 Chronic Esophageal disorders (20 sources) Gastro-esophageal reflux disease with esophagitis; Translations: [Gastroesophageal reflux disease with esophagitis without hemorrhage] Onset: 2 Chronic Headache; including migraine (20 sources) New daily persistent headache; Translations: [New daily persistent headache (NDPH)] Onset: 9 10-07-2018 Chronic Immunizations and screening for infectious disease (2 sources) Viral screening status; Translations: [Encounter for screening for other viral diseases] Episodic Joint disorders and dislocations; trauma-related (6 sources) Instability of joint of left knee; Translations: [Chronic instability of knee, left knee] Chronic Miscellaneous mental health disorders (20 sources) Psychologic dyspareunia; Translations: [Dyspareunia not due to a substance or known physiological condition] Onset: 2 10-15-2021 Chronic Mood disorders (20 sources) Major depression, single episode; Translations: [Major depressive disorder, single episode, unspecified] 11-11-2007 Chronic Nutritional deficiencies (20 sources) Vitamin D deficiency; Translations: [Vitamin D deficiency, unspecified] Onset: 4 03-16-2024 Chronic Osteoarthritis (2 sources) Osteoarthritis of left knee joint; Translations: [Unilateral primary osteoarthritis, left knee] Chronic Osteoporosis (20 sources) Osteoporosis; Translations: [Age-related osteoporosis without current pathological fracture] Onset: 2 Chronic Other and ill-defined heart disease (1 source) Left atrial enlargement; Translations: [Cardiomegaly] 07-07-2023 Chronic Other bone disease and musculoskeletal deformities (1 source) Disorder of bone; Translations: [Other specified disorders of bone, other site] Episodic Other connective tissue disease (1 source) Artificial knee joint present; Translations: [Presence of left artificial knee joint] Chronic Other connective tissue disease (3 sources) Trochanteric bursitis of right hip; Translations: [Trochanteric bursitis, right hip] Episodic Other connective tissue disease (1 source) Muscle weakness; Translations: [Muscle weakness (generalized)] Episodic Other connective tissue disease (1 source) Pain in right foot; Translations: [Pain in right foot] 01-01-2024 Episodic Other connective tissue disease (1 source) Pain in left foot; Translations: [Pain in left foot] 01-20-2024 Episodic Other connective tissue disease (1 source) Bilateral plantar fasciitis; Translations: [Plantar fascial fibromatosis] 01-20-2024 Episodic Other connective tissue disease (2 sources) Plantar fascial fibromatosis; Translations: [Plantar fascial fibromatosis] Onset: 4 Episodic Other connective tissue disease (2 sources) Pain in left foot; Translations: [Pain in left foot] Onset: 4 Episodic Other connective tissue disease (2 sources) Pain in right foot; Translations: [Pain in right foot] Onset: 4 Episodic Other ear and sense organ disorders (2 sources) Pain of ear structure; Translations: [Otalgia, bilateral] Episodic Other endocrine disorders (20 sources) Hypoglycemia; Translations: [Hypoglycemia, unspecified] Onset: 8 11-11-2007 Chronic Other gastrointestinal disorders (11 sources) Irritable bowel syndrome characterized by constipation; Translations: [Irritable bowel syndrome with constipation] 05-11-2023 Chronic Other gastrointestinal disorders (1 source) Irritable bowel syndrome with constipation; Translations: [Irritable bowel syndrome with constipation] Onset: 5 Chronic Other gastrointestinal disorders (2 sources) Dysphagia; Translations: [Dysphagia, unspecified] Episodic Other gastrointestinal disorders (6 sources) Abdominal bloating; Translations: [Abdominal distension (gaseous)] Episodic Other gastrointestinal disorders (4 sources) Chronic constipation; Translations: [Other constipation] Episodic Other liver diseases (3 sources) Liver cyst; Translations: [Other specified diseases of liver] 01-07-2024 Chronic Other lower respiratory disease (4 sources) Chronic cough; Translations: [Chronic cough] Episodic Other lower respiratory disease (2 sources) Respiratory tract congestion; Translations: [Other specified respiratory disorders] Episodic Other lower respiratory disease (2 sources) Wheezing; Translations: [Wheezing] Episodic Other nervous system disorders (1 source) Right-sided piriformis syndrome; Translations: [Lesion of sciatic nerve, right lower limb] Chronic Other nervous system disorders (3 sources) Paresthesia of hand ; Translations: [Anesthesia of skin] Episodic Other nervous system disorders (2 sources) Paresthesia; Translations: [Paresthesia of skin] Episodic Other nervous system disorders (2 sources) Paresthesia of right lower limb; Translations: [Paresthesia of skin] Episodic Other nervous system disorders (1 source) Skin sensation disturbance; Translations: [Other disturbances of skin sensation] Episodic Other nervous system disorders (3 sources) Hemifacial spasm; Translations: [Clonic hemifacial spasm, left] 01-26-2024 Episodic Other nervous system disorders (3 sources) Bradykinesia; Translations: [Other abnormal involuntary movements] 07-04-2024 Episodic Other nervous system disorders (1 source) Sense of smell impaired; Translations: [Other disturbances of smell and taste] 07-04-2024 Episodic Other non-traumatic joint disorders (2 sources) Hip pain; Translations: [Pain in right hip] Episodic Other non-traumatic joint disorders (2 sources) Pain in right hip joint; Translations: [Pain in right hip] Episodic Other non-traumatic joint disorders (20 sources) Pain in left knee; Translations: [Pain in joint, lower leg] Onset: 3 Episodic Other non-traumatic joint disorders (1 source) Decreased range of hip movement; Translations: [Stiffness of right hip, not elsewhere classified] 01-15-2023 Episodic Other non-traumatic joint disorders (1 source) Knee joint effusion; Translations: [Effusion, left knee] Episodic Other screening for suspected conditions (not mental disorders or infectious disease) (14 sources) Patient encounter status; Translations: [Encounter for screening for nutritional disorder] Onset: 2 Episodic Other upper respiratory disease (20 sources) Non-allergic rhinitis; Translations: [Chronic rhinitis] Onset: 9 03-16-2019 Chronic Other upper respiratory disease (1 source) Vocal cord strain; Translations: [Other diseases of vocal cords] 01-15-2024 Episodic Other upper respiratory infections (1 source) Chronic sinusitis; Translations: [Chronic sinusitis, unspecified] Chronic Other upper respiratory infections (2 sources) Sore throat symptom; Translations: [Acute pharyngitis, unspecified] Episodic Otitis media and related conditions (2 sources) Acute non-suppurative otitis media - serous; Translations: [Acute serous otitis media, bilateral] Episodic Prolapse of female genital organs (20 sources) Cystocele; Translations: [Uterovaginal prolapse, unspecified] Onset: 2 10-15-2021 Chronic Residual codes; unclassified (1 source) H/O: artificial organ/tissue; Translations: [Breast implant status] Onset: 8 04-15-2018 Chronic Residual codes; unclassified (20 sources) History of bilateral breast implants; Translations: [Breast implant status] Onset: 3 03-11-2023 Chronic Residual codes; unclassified (1 source) Breast implant status; Translations: [History of bilateral breast implants] Onset: 3 Chronic Residual codes; unclassified (3 sources) Flushing; Translations: [Flushing] Episodic Residual codes; unclassified (2 sources) Early satiety; Translations: [Early satiety] Episodic Residual codes; unclassified (1 source) Viral syndrome; Translations: [Other general symptoms and signs] 09-12-2024 Episodic Residual codes; unclassified (3 sources) FH: premature coronary heart disease; Translations: [Family history of ischemic heart disease and other diseases of the circulatory system] Onset: 5 03-20-2025 Episodic Residual codes; unclassified (2 sources) Family history of ischemic heart disease and other diseases of the circulatory system; Translations: [Family history of ischemic heart disease and other diseases of the circulatory system] Onset: 5 Episodic Spondylosis; intervertebral disc disorders; other back problems (20 sources) Disorder of joint of spine; Translations: [Other spondylosis with radiculopathy, lumbar region] Onset: 1 Chronic Unclassified (1 source) Delayed union of fracture of foot; Translations: [Delayed union of fracture of foot, right] Past or Other Problems Problem Classification Problem Date Documented Da te Episodic/Chronic Abdominal pain (20 sources) Pain in female pelvis; Translations: [Pelvic and perineal pain] Onset: 10-15-2021 10-15-2021 Episodic Cancer of breast (20 sources) History of malignant neoplasm of breast; Translations: [Personal history of malignant neoplasm of breast] Onset: 08-25-2017 08-25-2017 Episodic Cardiac dysrhythmias (20 sources) Palpitations; Translations: [Palpitations] Onset: 11-11-2007 11-11-2007 Episodic Deficiency and other anemia (20 sources) Iron deficiency anemia; Translations: [Iron deficiency anemia, unspecified] Onset: 12-16-2021 Episodic Deficiency and other anemia (20 sources) Anemia; Translations: [Anemia, unspecified] Onset: 03-16-2024 03-16-2024 Episodic Deficiency and other anemia (1 source) Anemia, unspecified; Translations: [Anemia, unspecified type] Onset: 03-16-2024 Episodic Intestinal infection (20 sources) Infection caused by Helicobacter pylori; Translations: [Other specified bacterial intestinal infections] Onset: 11-25-2021 Episodic Malaise and fatigue (20 sources) Fatigue; Translations: [Other fatigue] Onset: 03-16-2024 03-16-2024 Episodic Nonmalignant breast conditions (20 sources) Breast lump; Translations: [Unspecified lump in unspecified breast] Onset: 02-23-2019 02-23-2019 Episodic Other aftercare (20 sources) Prevention status; Translations: [longterm (current) use of selective estrogen receptor modulators (SERMs)] Onset: 03-27-2023 Resolved: 03-13-2024 03-27-2023 Episodic Other and unspecified benign neoplasm (20 sources) Dermatofibroma; Translations: [Other benign neoplasm of skin of unspecified upper limb, including shoulder] Onset: 06-27-2009 06-27-2009 Episodic Other connective tissue disease (20 sources) Iliotibial band friction syndrome of left knee; Translations: [Iliotibial band syndrome, left leg] Onset: 03-16-2024 03-16-2024 Episodic Other gastrointestinal disorders (1 source) Abdominal distension (gaseous); Translations: [Bloating] Onset: 08-26-2024 Episodic Other inflammatory condition of skin (20 sources) Seborrheic dermatitis; Translations: [Seborrheic dermatitis, unspecified] Onset: 08-27-2007 08-27-2007 Episodic Other inflammatory condition of skin (20 sources) Solar erythema; Translations: [Sunburn, unspecified] Onset: 01-29-2007 Resolved: 11-11-2007 11-11-2007 Episodic Other lower respiratory disease (20 sources) Cough; Translations: [Cough] Onset: 11-25-2021 Episodic Other lower respiratory disease (20 sources) Dry cough; Translations: [Persistent dry cough] Onset: 03-16-2024 12-01-2023 Episodic Other nervous system disorders (20 sources) Facial myokymia; Translations: [Facial myokymia] Onset: 03-16-2024 12-01-2023 Episodic Other nervous system disorders (1 source) Other abnormal involuntary movements; Translations: [Bradykinesia] Onset: 01-02-2025 Episodic Other nervous system disorders (1 source) Clonic hemifacial spasm, left; Translations: [Hemifacial spasm of left side of face] Onset: 07-04-2024 Episodic Other skin disorders (20 sources) Acne; Translations: [Other acne] Onset: 12-17-2006 12-17-2006 Episodic Other skin disorders (20 sources) Sebaceous cyst of skin; Translations: [Sebaceous cyst] Onset: 08-27-2007 Resolved: 11-11-2007 12-01-2007 Episodic Other skin disorders (20 sources) Scar conditions and fibrosis of skin; Translations: [Scar conditions and fibrosis of skin] Onset: 06-27-2009 06-27-2009 Episodic Other skin disorders (20 sources) Disorder of skin appendage; Translations: [Other hair color and hair shaft abnormalities] Onset: 12-17-2006 Resolved: 11-11-2007 11-11-2007 Episodic Other skin disorders (20 sources) Eruption; Translations: [Rash and other nonspecific skin eruption] Onset: 12-17-2006 Resolved: 11-11-2007 11-11-2007 Episodic Other skin disorders (20 sources) Disorder of sebaceous gland; Translations: [Other specified follicular disorders] Onset: 08-27-2007 Resolved: 11-11-2007 11-11-2007 Episodic Other upper respiratory disease (20 sources) Hoarse; Translations: [Dysphonia] Onset: 11-25-2021 Episodic Pathological fracture (2 sources) Pathological fracture due to osteoporosis; Translations: [Age-related osteoporosis with current pathological fracture, unspecified site, subsequent encounter for fracture with routine healing] Onset: 03-10-2023 11-09-2024 Episodic Residual codes; unclassified (1 source) Absence of breast; Translations: [Acquired absence of left breast and nipple] Onset: 08-25-2017 08-25-2017 Episodic Residual codes; unclassified (1 source) Absence of breast; Translations: [Acquired absence of right breast and nipple] Onset: 08-25-2017 08-25-2017 Episodic Residual codes; unclassified (20 sources) 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; Translations: [Genetic carrier of other disease] Onset: 04-23-2023 04-23-2023 Episodic Residual codes; unclassified (1 source) Estrogen receptor positive status [ER+]; Translations: [Carcinoma of upper-outer quadrant of right breast in female, estrogen receptor positive (HCC)] Onset: 08-19-2017 Episodic Residual codes; unclassified (1 source) Acquired absence of bilateral breasts and nipples; Translations: [History of bilateral mastectomy] Onset: 03-11-2023 Episodic Skin and subcutaneous tissue infections (20 sources) Pyoderma; Translations: [Pyoderma] Onset: 12-17-2006 12-17-2006 Episodic Spondylosis; intervertebral disc disorders; other back problems (20 sources) Acute back pain with sciatica; Translations: [Lumbago with sciatica, right side] Onset: 07-10-2021 Episodic Sprains and strains (20 sources) Acetabular labrum tear; Translations: [Other sprain of unspecified hip, initial encounter] Onset: 12-16-2021 Episodic Unclassified (1 source) Problem Results Test Name Value Interpretation Reference Range [facility] ([facility] ) -- GREYSON ROJAS ([id number]) 1970 F Date Time Provider Department 04/11/25 11:40 AM CECI LUNA During your visit today, we recorded the following information about you: Pulse Blood pressure Weight Height 85/minute 112/70 62.2 kg 1.6 m Ceci Luna PA-C 04/11/2025 11:52 AM Signed CHIEF COMPLAINT: Patient presents with: Recheck: IBS with constipation- doing well on Motegrity HPI Greyson Rojas is a 55 year old female here today for Recheck (IBS with constipation- doing well on Motegrity ) Patient tells me that she is doing very well on Motegrity 2 mg daily. Notes that her bowel movements have been normal, going 2-3x per day but formed and feels like she is emptying. Notes that her bloating and sluggishness after eating has improved. No rectal bleeding. Last OV with me 01/30/2025: Assessment/Plan (K58.1) Irritable bowel syndrome with constipation (primary encounter diagnosis) 1. Irritable bowel syndrome with constipation (Primary) -- Patient with ongoing IBS-C, bowels are alternating. Doesn't feel like the IBSRELA is working anymore. -- Patient has failed Linzess. Will try Motegrity 2 mg daily. Script sent to pharmacy. She will reach out with an update. - prucalopride 2 mg tablet (MOTEGRITY); Take 1 tablet by mouth once daily. Dispense: 30 tablet; Refill: 1 Follow up in office 3 months/PRN. Current Outpatient Medications Medication Sig famotidine (PEPCID) 20 mg tablet TAKE 1 TABLET TWICE A DAY NEEDED estradiol (ESTRACE) 0.01 % (0.1 mg/gram) vaginal cream INSERT 1 GRAM VAGINALLY 3 TIMES A WEEK BEFORE BED omeprazole (PRILOSEC) 20 mg capsule TAKE 1 CAPSULE ONCE DAILY rosuvastatin (CRESTOR) 5 mg tablet Take 1 tablet by mouth daily at bedtime. venlafaxine ER (EFFEXOR XR) 37.5 mg 24 hr capsule TAKE 1 CAPSULE ONCE DAILY KRILL OIL ORAL Take 800 mg by mouth once daily. GEMTESA 75 mg tablet Take 75 mg by mouth once daily. COMPRESSION SLEEVE as directed. Breast cancer. 20-30 mmHg mecobalamin (B12 ACTIVE ORAL) Take 1 tablet by mouth once daily. CALCIUM CARBONATE/VITAMIN D3 (VITAMIN D-3 ORAL) Take by mouth twice daily. prucalopride 2 mg tablet (MOTEGRITY) Take 1 tablet by mouth once daily. No current facility-administered medications for this visit. ALLERGIES Allergen Reactions Penicillins Hives Other reaction(s): hives all over body Nickel Rash SOCIAL HISTORY[1] PAST MEDICAL HISTORY Diagnosis Date Anemia, unspecified iron deficiency Breast cancer (HCC) 08/2017 Breast mass 06/2017 right breast Diffuse cystic mastopathy Helicobacter pylori infection Hiatal hernia History of prolapse of bladder Major depressive disorder, single episode, unspecified 1999 depressed year after 3rd child: treated for 1 year with Zoloft Meniere disease Dr. Marie ENT Panic disorder without agoraphobia periodic symptoms Use of tamoxifen (Nolvadex) 03/27/2023 PAST SURGICAL HISTORY Procedure Laterality Date BREAST RECONSTRUCTION implants removed and replaced BX BREAST W/DEVICE 1ST LESION ULTRASOUND GUID Right 06/12/2017 3 nodules; 5cm, 3cm, 3cm COLONOSCOPY 03/16/2023 COLONOSCOPY FLX DX W/COLLJ SPEC WHEN PFRMD 03/01/2018 Colonoscopy CYSTOCELE REPAIR 01/07/2024 CYSTOCELE REPAIR 01/07/2024 EGD N/A 11/05/2021 EGD W/O [facility] SPEC VARICIES INJ 04/29/2024 Normal FOOT SURGERY HX Left 1981 Arch reshaping HIP SURGERY HX 01/08/2022 torn labrum, reshaped femoral head LAPAROSCOPIC SALPING/OOPHORECTOMY Right 02/24/2019 Dr. Jasmin Sosa MASTECTOMY, SIMPLE, COMPLETE Bilateral 08/18/2017 Dr. Johnson (reconstruction), Dr. 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 Sosa-[facility] TOTAL ABD HYSTERECTOMY+BLAD REPR N/A 2020 left ovary removed; Dr. Sosa-[facility]- total hysterectomy with rectocele and bladder sling TOTAL KNEE REPLACEMENT Left 07/24/2023 FAMILY HISTORY Problem Relation Age of Onset Cancer Mother melanoma Hypertension Mother Lipids Mother Breast Cancer Mother 63 lumpectomy, radiation, anastrozole x 5 years Diabetes Mother Skin Cancer Mother basel cell Renal Disease Mother other (chf) Mother Arthritis Father Lipids Father High Triglycerides Heart Father ICD/pacer, CHF/s/p [place] (cause of ) Diabetes Father other (renal failure) Father Osteoporosis Sister Diabetes Sister Lipids Sister Osteoporosis Sister other (hydrocephalus) Sister other (spina bifida) Sister Hypertension Brother Osteoporosis Maternal Grandmother Colon Cancer Paternal Grandmother Cancer Paternal Grandfather HCC-EtOH abuse No Known Problems Daughter other (POTS) Daughter 28 other (PCOS) Daughter 25 Heart (more content not included)... Normal [facility] CNOVon 03-20-2025 CNOV Office Visit (FAMPWS ) -- GREYSON ROJAS ([id number]) 1970 F Date Time Provider Department 03/20/25 7:40 [facility] During your visit today, we recorded the following information about you: Temperature Pulse Respiration Blood pressure 96.7 degrees 68/minute 16/minute 100/70 Weight Height 63.5 kg 1.6 m Gallo Sanches DO 03/20/2025 12:52 PM Signed CC: Greyson Rojas is a 55 year old female who presents to the office to establish care. HPI: Left knee pain, chronic since her left knee replacement surgery. She is likely to have upcoming popliteal surgery for entrapment syndrome by Dr. [facility]. Hiatal hernia, GERD symptoms stable. Taking Pepcid medication and Prilosec Mood, post menopausal symptoms, stable with Effexor, taking as prescribed, no concerns. HPL, taking Crestor 5 mg a day, tolerating well without SE She isn't interested in pneumococcal vaccine and hepatitis b vaccine recommended. PAST MEDICAL HISTORY Diagnosis Date Anemia, unspecified iron deficiency Breast cancer (HCC) 08/2017 Breast mass 06/2017 right breast Diffuse cystic mastopathy Helicobacter pylori infection Hiatal hernia History of prolapse of bladder Major depressive disorder, single episode, unspecified 1999 depressed year after 3rd child: treated for 1 year with Zoloft Meniere disease Dr. Marie ENT Panic disorder without agoraphobia periodic symptoms Use of tamoxifen (Nolvadex) 03/27/2023 PAST SURGICAL HISTORY Procedure Laterality Date BREAST RECONSTRUCTION implants removed and replaced BX BREAST W/DEVICE 1ST LESION ULTRASOUND GUID Right 06/12/2017 3 nodules; 5cm, 3cm, 3cm COLONOSCOPY 03/16/2023 COLONOSCOPY FLX DX W/COLLJ SPEC WHEN PFRMD 03/01/2018 Colonoscopy CYSTOCELE REPAIR 01/07/2024 CYSTOCELE REPAIR 01/07/2024 EGD N/A 11/05/2021 EGD W/O [facility] SPEC VARICIES INJ 04/29/2024 Normal FOOT SURGERY HX Left 1981 Arch reshaping HIP SURGERY HX 01/08/2022 torn labrum, reshaped femoral head LAPAROSCOPIC SALPING/OOPHORECTOMY Right 02/24/2019 Dr. Jasmin Sosa MASTECTOMY, SIMPLE, COMPLETE Bilateral 08/18/2017 Dr. Johnson (reconstruction), Dr. 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 Sosa-[facility] TOTAL ABD HYSTERECTOMY+BLAD REPR N/A 2020 left ovary removed; Dr. Sosa-[facility]- total hysterectomy with rectocele and bladder sling TOTAL KNEE REPLACEMENT Left 07/24/2023 Social History: SOCIAL HISTORY[1] FAMILY HISTORY Problem Relation Age of Onset Cancer Mother melanoma Hypertension Mother Lipids Mother Breast Cancer Mother 63 lumpectomy, radiation, anastrozole x 5 years Diabetes Mother Skin Cancer Mother basel cell Renal Disease Mother other (chf) Mother Arthritis Father Lipids Father High Triglycerides Heart Father ICD/pacer, CHF/s/p [place] (cause of ) Diabetes Father other (renal failure) Father Osteoporosis Sister Diabetes Sister Lipids Sister Osteoporosis Sister other (hydrocephalus) Sister other (spina bifida) Sister Hypertension Brother Osteoporosis Maternal Grandmother Colon Cancer Paternal Grandmother Cancer Paternal Grandfather HCC-EtOH abuse No Known Problems Daughter other (POTS) Daughter 28 other (PCOS) Daughter 25 Heart Maternal Uncle enlarged heart: cardiomyopathy other (ETOH) Paternal Uncle liver, cause of Breast Cancer Maternal cousin 49 Ovarian cancer No Family History Current Outpatient prescriptions: prucalopride 2 mg tablet (MOTEGRITY) Take 1 tablet by mouth once daily. famotidine (PEPCID) 20 mg tablet TAKE 1 TABLET TWICE A DAY NEEDED estradiol (ESTRACE) 0.01 % (0.1 mg/gram) vaginal cream INSERT 1 GRAM VAGINALLY 3 TIMES A WEEK BEFORE BED omeprazole (PRILOSEC) 20 mg capsule TAKE 1 CAPSULE ONCE DAILY rosuvastatin (CRESTOR) 5 mg tablet Take 1 tablet by mouth daily at bedtime. venlafaxine ER (EFFEXOR XR) 37.5 mg 24 hr capsule TAKE 1 CAPSULE ONCE DAILY KRILL OIL ORAL Take 800 mg by mouth once daily. GEMTESA 75 mg tablet Take 75 mg by mouth once daily. COMPRESSION SLEEVE as directed. Breast cancer. 20-30 mmHg mecobalamin (B12 ACTIVE ORAL) Take 1 tablet by mouth once daily. CALCIUM CARBONATE/VITAMIN D3 (VITAMIN D-3 ORAL) Take by mouth twice daily. Allergies: ALLERGIES Allergen Reactions Penicillins Hives Other reaction(s): hives all over body Nickel Rash ROS: See HPI PE: 03/20/25 0739 BP: 100/70 Pulse: 68 Resp: 16 Temp: (!) 35.9 ?C (96.7 ?F) TempSrc: Right Tympanic Weight: 63.5 kg (140 lb) Height: 160 cm (5' 2.99) Gen: AANDO, NAD, non-toxic appearing, Pleasant, cooperative HEENT: NT/AC, PERRLA, EOMs intact b/l, nares clear a (more content not included)... Normal [facility] 25(OH)D3 [facility] [place] 2024 25-hydroxyvitamin D3 [Mass/Vol] 68.9 ng/mL Normal 31.0-80.0 [facility] Comment on above: Order Comment: Speci men Type: BLOOD SPECIMENOrdering Facility: [facility] Address: [address] [place] [address] [place] [address] Result Comment: Clas sification of 25 OH Vitamin D status: Deficiency/Insufficiency: < or = 30 ng/ml. Sufficiency/Optimal Levels: 31-80 ng/mL Toxicity: > 100 ng/mL. Test performed by chemiluminescent immunoassay. Performed By: #### 1 989-3 ####[facility] LABCLIA [id number] [place] [address] [place] CBC W Auto Differential pane l (Bld)on 03-14-2025 Basophils (Bld) [#/Vol] 0.03 10*3/uL Normal <0.11 [facility] Comment on above: Order Comment: Speci men Type: BLOOD SPECIMENOrdering Facility: [facility] Address: [address] [place] [address] Performed By: #### 5 7021-8 ####[facility] LABIA [id number] [place] [address] [place] Basophils/100 WBC (Bld) 0.6 % Normal [facility] Comment on above: Order Comment: Speci men Type: BLOOD SPECIMENOrdering Facility: [facility] Address: [address] [place] [address] Performed By: #### 5 7021-8 ####[facility] LABIA [id number] [place] [address] [place] Differential cell count method Nom (Bld) Auto Normal [facility] Comment on above: Order Comment: Speci men Type: BLOOD SPECIMENOrdering Facility: [facility] Address: [address] [place] [address] Performed By: #### 5 7021-8 ####[facility] LABIA [id number] [place] [id number] [place] Eosinophils (Bld) [#/Vol] 0.05 10*3/uL Normal <0.46 [facility] Comment on above: Order Comment: Speci men Type: BLOOD SPECIMENOrdering Facility: [facility] Address: [address] [place] [address] Performed By: #### 5 7021-8 ####[facility] LABCLIA [id number] [address], [facility] [place] Eosinophils/100 WBC (Bld) 0.9 % Normal [facility] Comment on above: Order Comment: Speci men Type: BLOOD SPECIMENOrdering Facility: [facility] Address: [address] [place] [address] Performed By: #### 5 7021-8 ####[facility] LABCLIA [id number] [address], [place] [address] [place] Erythrocyte distribution width (RBC) [Ratio] 14.1 % Normal 11.5-15.0 [facility] Comment on above: Order Comment: Speci men Type: BLOOD SPECIMENOrdering Facility: [facility] Address: [address] [place] [address] Performed By: #### 5 7021-8 ####[facility] LABCLIA [id number] [address], [place] [address] [place] Hematocrit (Bld) [Volume fraction] 38.5 % Normal 36.0-46.0 [facility] Comment on above: Order Comment: Speci men Type: BLOOD SPECIMENOrdering Facility: [facility] Address: [address] [place] [address] Performed By: #### 5 7021-8 ####[facility] LABCLIA [id number] [address], [place] [address] [place] Hemoglobin (Bld) [Mass/Vol] 12.3 g/dL Normal 11.5-15.5 [facility] Comment on above: Order Comment: Speci men Type: BLOOD SPECIMENOrdering Facility: [facility] Address: [address] [place] [address] Performed By: #### 5 7021-8 ####[facility] LABCLIA [id number] [address], [facility] [place] Immature granulocytes (Bld) [#/Vol] 10*3/uL Normal <0.10 [facility] Comment on above: Order Comment: Speci men Type: BLOOD SPECIMENOrdering Facility: [facility] Address: [address] [place] [address] Performed By: #### 5 7021-8 ####[facility] LABCLIA [id number] [address] STATES [facility] Immature granulocytes/100 WBC (Bld) 0.2 % Normal [facility] Comment on above: Order Comment: Speci men Type: BLOOD SPECIMENOrdering Facility: [facility] Address: [address] [place] [address] Performed By: #### 5 7021-8 ####[facility] LABCLIA [id number] [place] [address] [place] Lymphocytes (Bld) [#/Vol] 1.91 10*3/uL Normal 1.00-4.00 [facility] Comment on above: Order Comment: Speci men Type: BLOOD SPECIMENOrdering Facility: [facility] Address: [address] [place] [address] Performed By: #### 5 7021-8 ####[facility] LABCLIA [id number] [place] [address] [place] Lymphocytes/100 WBC (Bld) 35.6 % Normal [facility] Comment on above: Order Comment: Speci men Type: BLOOD SPECIMENOrdering Facility: [facility] Address: [address] [place] [address] Performed By: #### 5 7021-8 ####[facility] LABCLIA [id number] [place] [id number] [place] MCH (RBC) [Entitic mass] 28.1 pg Normal 26.0-34.0 [facility] Comment on above: Order Comment: Speci men Type: BLOOD SPECIMENOrdering Facility: [facility] Address: [address] [place] [address] Performed By: #### 5 7021-8 ####[facility] LABCLIA [id number] [place] [address] [place] MCHC (RBC) [Mass/Vol] 31.9 g/dL Normal 30.5-36.0 [facility] Comment on above: Order Comment: Speci men Type: BLOOD SPECIMENOrdering Facility: [facility] Address: [address] [place] [address] Performed By: #### 5 7021-8 ####[facility] LABCLIA [id number] [place] [address] [place] MCV (RBC) [Entitic vol] 88.1 fL Normal 80.0-100.0 [facility] Comment on above: Order Comment: Speci men Type: BLOOD SPECIMENOrdering Facility: [facility] Address: [address] [place] [address] Performed By: #### 5 7021-8 ####[facility] LABCLIA [id number] [place] [address] [place] Monocytes (Bld) [#/Vol] 0.58 10*3/uL Normal <0.87 [facility] Comment on above: Order Comment: Speci men Type: BLOOD SPECIMENOrdering Facility: [facility] Address: [address] [place] [address] Performed By: #### 5 7021-8 ####[facility] LABCLIA [id number] [place] [address] [place] Monocytes/100 WBC (Bld) 10.8 % Normal [facility] Comment on above: Order Comment: Speci men Type: BLOOD SPECIMENOrdering Facility: [facility] Address: [address] [place] [address] Performed By: #### 5 7021-8 ####[facility] LABCLIA [id number] [place] [id number] [place] Neutrophils (Bld) [#/Vol] 2.79 10*3/uL Normal 1.45-7.50 [facility] Comment on above: Order Comment: Speci men Type: BLOOD SPECIMENOrdering Facility: [facility] Address: [address] [place] [address] Performed By: #### 5 7021-8 ####[facility] LABIA [id number] [place] [address] [place] Neutrophils/100 WBC (Bld) 51.9 % Normal [facility] Comment on above: Order Comment: Speci men Type: BLOOD SPECIMENOrdering Facility: [facility] Address: [address] [place] [address] Performed By: #### 5 7021-8 ####[facility] LABIA [id number] [place] [address] [place] Nucleated RBC (Bld) [#/Vol] 10*3/uL Normal <0.01 [facility] Comment on above: Order Comment: Speci men Type: BLOOD SPECIMENOrdering Facility: [facility] Address: [address] [place] [address] Performed By: #### 5 7021-8 ####[facility] LABIA [id number] [place] [address] [place] Nucleated RBC/100 WBC (Bld) [Ratio] 0.0 /100 WBC Normal [facility] Comment on above: Order Comment: Speci men Type: BLOOD SPECIMENOrdering Facility: [facility] Address: [address] [place] [address] Performed By: #### 5 7021-8 ####[facility] LABIA [id number] [place] [address] [place] Platelet mean volume (Bld) [Entitic vol] 11.9 fL Normal 9.0-12.7 [facility] Comment on above: Order Comment: Speci men Type: BLOOD SPECIMENOrdering Facility: [facility] Address: [address] [place] [address] Performed By: #### 5 7021-8 ####[facility] LABCLIA [id number] [address] [address] [place] Platelets (Bld) [#/Vol] 218 10*3/uL Normal 150-400 [facility] Comment on above: Order Comment: Speci men Type: BLOOD SPECIMENOrdering Facility: [facility] Address: [address] [place] [address] Performed By: #### 5 7021-8 ####[facility] LABCLIA [id number] [address] [address] [place] RBC (Bld) [#/Vol] 4.37 10*6/uL Normal 3.90-5.20 [facility] Comment on above: Order Comment: Speci men Type: BLOOD SPECIMENOrdering Facility: [facility] Address: [address] [place] [address] Performed By: #### 5 7021-8 ####[facility] LABIA [id number] [place] [address] [place] WBC (Bld) [#/Vol] 5.37 10*3/uL Normal 3.70-11.00 [facility] Comment on above: Order Comment: Speci men Type: BLOOD SPECIMENOrdering Facility: [facility] Address: [address] [place] [address] Performed By: #### 5 7021-8 ####[facility] LABIA [id number] [place] [id number] [place] Comprehensive metabolic 2000 panelon 03-14-2025 Albumin [Mass/Vol] 4.4 g/dL Normal 3.9-4.9 [facility] Comment on above: Order Comment: Speci men Type: BLOOD SPECIMENOrdering Facility: [facility] Address: [address] [place] [address] Performed By: #### 2 4331-1, 11477-7, 3016-3 ####[facility] LABCLIA [id number] [address] [address] [place] ALP [Catalytic activity/Vol] 47 U/L Normal 34-123 [facility] Comment on above: Order Comment: Speci men Type: BLOOD SPECIMENOrdering Facility: [facility] Address: [address] [place] [address] Performed By: #### 2 4331-1, 73595-1, 3015-3 ####[facility] LABCLIA [id number] [place] [address] [place] ALT [Catalytic activity/Vol] 12 U/L Normal 7-38 [facility] Comment on above: Order Comment: Speci men Type: BLOOD SPECIMENOrdering Facility: [facility] Address: [address] [place] [address] Performed By: #### 2 4331-1, 18268-2, 3015-3 ####[facility] LABCLIA [id number] [place] [address] [place] Anion gap [Moles/Vol] 11 mmol/L Normal 8-15 [facility] Comment on above: Order Comment: Speci men Type: BLOOD SPECIMENOrdering Facility: [facility] Address: [address] [place] [address] Performed By: #### 2 4331-1, 07567-0, 3015-3 ####[facility] LABCLIA [id number] [place] [address] [place] AST [Catalytic activity/Vol] 20 U/L Normal 13-35 [facility] Comment on above: Order Comment: Speci men Type: BLOOD SPECIMENOrdering Facility: [facility] Address: [address] [place] [address] Performed By: #### 2 4331-1, 99388-4, 6-3 ####[facility] LABCLIA [id number] [address] [address] [place] Bilirubin [Mass/Vol] 0.4 mg/dL Normal 0.2-1.3 [facility] Comment on above: Order Comment: Speci men Type: BLOOD SPECIMENOrdering Facility: [facility] Address: [address] [place], [place] [address] Performed By: #### 2 4331-1, , 3 ####[facility] LABCLIA [id number] [facility] [address] [address] [place] Calcium [Mass/Vol] 9.2 mg/dL Normal 8.5-10.2 [facility] Comment on above: Order Comment: Speci men Type: BLOOD SPECIMENOrdering Facility: [facility] Address: [address] [place], [place] [address] Performed By: #### 2 4331-1, , 3 ####[facility] LABCLIA [id number] [facility] [address] [address] [place] Chloride [Moles/Vol] 102 mmol/L Normal 98-107 [facility] Comment on above: Order Comment: Speci men Type: BLOOD SPECIMENOrdering Facility: [facility] Address: [address] [place] [address] Performed By: #### 2 4331-1, , 3015-10 ####[facility] LABCLIA [id number] [facility] [address] [address] [place] CO2 [Moles/Vol] 26 mmol/L Normal 22-30 [facility] Comment on above: Order Comment: Speci men Type: BLOOD SPECIMENOrdering Facility: [facility] Address: [address] [place] [address] Performed By: #### 2 4331-1, , 3 ####[facility] LABCLIA [id number] [facility] [address] [place] [address] [place] Creatinine [Mass/Vol] 0.84 mg/dL Normal 0.58-0.96 [facility] Comment on above: Order Comment: Speci men Type: BLOOD SPECIMENOrdering Facility: [facility] Address: [address] [place] [id number] Performed By: #### 2 4331-1, 94129-6, 6-3 ####[facility] LABCLIA [id number] [address] [address] [place] eGFRcr SerPlBld CKD-EPI 2020 81 mL/min/1.73m??? Normal >=60 [facility] Comment on above: Order Comment: Shelley petit Type: BLOOD SPECIMENOrdering Facility: [facility] Address: [address] [place] [address] Result Comment: Roxanne mated Glomerular Filtration Rate (eGFR) is calculated using the 2020 CKD-EPI creatinine equation. This equation utilizes serum creatinine, sex, and age as parameters. The creatinine assay has traceable calibration to isotope dilution-mass spectrometry. Refer to KDIGO guidelines for clinical interpretation. In patients with unstable renal function, e.g. those with acute kidney injury, the eGFR may not accurately reflect actual GFR. Performed By: #### 2 4331-1, 51430-2, 6-3 ####[facility] LABCLIA [id number] [address] [address] [place] Glucose [Mass/Vol] 88 mg/dL Normal 74-99 [facility] Comment on above: Order Comment: Shelley petit Type: BLOOD SPECIMENOrdering Facility: [facility] Address: [address] [place] [address] Result Comment: The [place] Diabetes Association (ADA) provides guidance for cutoff values for fasting glucose and random glucose. The ADA defines fasting as no caloric intake for at least 8 hours. Fasting plasma glucose results between 100 to 125 mg/dL indicate increased risk for diabetes (prediabetes). Fasting plasma glucose results greater than or equal to 126 mg/dL meet the criteria for diagnosis of diabetes. In the absence of unequivocal hyperglycemia, results should be confirmed by repeat testing. In a patient with classic symptoms of hyperglycemia or hyperglycemic crisis, random plasma glucose results greater than or equal to 200 mg/dL meet the criteria for diagnosis of diabetes. Reference: Standards of Medical Care in Diabetes 2016, [place] Diabetes Association. Diabetes Care. 2016.39(Suppl 1). Performed By: #### 2 4331-1, 03209-2, 6-3 ####[facility] LABCLIA [id number] [address] [place] [address] [place] Potassium [Moles/Vol] 4.6 mmol/L Normal 3.7-5.1 [facility] Comment on above: Order Comment: Speci men Type: BLOOD SPECIMENOrdering Facility: [facility] Address: [address] [place] [address] Performed By: #### 2 4331-1, 13438-9, 3015-3 ####[facility] LABCLIA [id number] [address] [address] [place] Protein [Mass/Vol] 6.7 g/dL Normal 6.3-8.0 [facility] Comment on above: Order Comment: Speci men Type: BLOOD SPECIMENOrdering Facility: [facility] Address: [address] [place] [address] Performed By: #### 2 4331-1, , 3 ####[facility] LABCLIA [id number] [address] [address] [place] Sodium [Moles/Vol] 139 mmol/L Normal 136-144 [facility] Comment on above: Order Comment: Speci men Type: BLOOD SPECIMENOrdering Facility: [facility] Address: [address] [place] [address] Performed By: #### 2 4331-1, 75987-4, 3015-3 ####[facility] LABCLIA [id number] [address] [place] [address] [place] Urea nitrogen [Mass/Vol] 11 mg/dL Normal 7-21 [facility] Comment on above: Order Comment: Speci men Type: BLOOD SPECIMENOrdering Facility: [facility] Address: [address] [place] [address] Performed By: #### 2 4331-1, 10854-5, 3016-3 ####[facility] LABCLIA [id number] [place] [id number] [facility] HbA1c (Bld)on 03-14-2025 Average glucose Estimated from glycated hemoglobin (Bld) [Mass/Vol] 111 mg/dL Normal [facility] Comment on above: Order Comment: Shelley petit Type: BLOOD SPECIMENOrdering Facility: [facility] Address: [address] [place] [address] Result Comment: eAG: (Estimated average glucose) is a calculated value from HgbA1c and is sales representative metals of the average blood glucose level in the last 2-3 month period. Performed By: #### 5 5454-3 ####[facility] LABIA [id number] [address] HbA1c (Bld) [Mass fraction] 5.5 % Normal 4.3-5.6 [facility] Comment on above: Order Comment: Shelley petit Type: BLOOD SPECIMENOrdering Facility: [facility] Address: [address] [place] [address] Result Comment: [place] Diabetes Association guidelines indicate that patients with HgbA1c in the range 5.7-6.4% are at increased risk for development of diabetes, and intervention by lifestyle modification may be beneficial. HgbA1c greater or equal to 6.5% is considered diagnostic of diabetes. Performed By: #### 5 5454-3 ####[facility] LABIA [id number] [address] [address] [facility] [place] Lipid 1996 panelon 5 Cholesterol [Mass/Vol] 157 mg/dL Normal <200 [facility] Comment on above: Order Comment: Shelley petit Type: BLOOD SPECIMENOrdering Facility: [facility] Address: [address] [place] [address] Result Comment: <200 mg/dL, Desirable 200-239 mg/dL, Borderline high >239 mg/dL, High Performed By: #### 2 4331-1, 32087-7, 3 ####[facility] LABCLIA [id number] [address] OF [facility] Cholesterol in HDL [Mass/Vol] 73 mg/dL Normal >39 [facility] Comment on above: Order Comment: Speci men Type: BLOOD SPECIMENOrdering Facility: [facility] Address: [address] [place] [address] Result Comment: 40-5 9 mg/dL, Acceptable >59 mg/dL, High: Negative risk factor for coronary heart disease <40 mg/dL, Low: Positive risk factor for coronary heart disease Performed By: #### 2 4331-1, , 3015-10 ####[facility] LABIA [id number] [address] Cholesterol in LDL [Mass/Vol] 72 mg/dL Normal <100 [facility] Comment on above: Order Comment: Lindai men Type: BLOOD SPECIMENOrdering Facility: [facility] Address: [address] [place] [address] Result Comment: <100 mg/dL, Optimal 100-129 mg/dL, Near optimal/above optimal 130-159 mg/dL, Borderline high 160-189 mg/dL, High >189 mg/dL, Very high Secondary prevention optimal LDL Cholesterol levels are recommended to be <70 mg/dL LDL cholesterol is calculated using the Champion-NIH equation. Performed By: #### 2 4331-1, , 3015-10 ####[facility] LABIA [id number] [place] [id number] [place] [facility] Cholesterol in LDL/Cholesterol in HDL [Mass ratio] 0.99 {ratio} Normal <2.54 [facility] Comment on above: Order Comment: Speci men Type: BLOOD SPECIMENOrdering Facility: [facility] Address: [address] [place] [address] Result Comment: Mariela tadeo: 1. National Cholesterol Education Program ATP III Guideline At-A-Glance Quick Desk Reference: National Heart, Lung, and Blood [place]. National Institutes of Health. 2001: NIH Publication No. 01-3305. 2. An International Atherosclerosis Society position paper: global recommendations for the management of dyslipidemia: executive summary, Atherosclerosis. 2014: 232(2):410-413. Performed By: #### 2 4331-1, 21687-3, 3015-3 ####[facility] LABCLIA [id number] [facility] [address] [place] [address] [place] Cholesterol in VLDL [Mass/Vol] 9 mg/dL Normal <30 [facility] Comment on above: Order Comment: Speci men Type: BLOOD SPECIMENOrdering Facility: [facility] Address: [address] [place] [address] Performed By: #### 2 4331-1, 87267-6, 3015-3 ####[facility] LABCLIA [id number] [address] [address] [place] Cholesterol non HDL [Mass/Vol] 84 mg/dL Normal <130 [facility] Comment on above: Order Comment: Speci men Type: BLOOD SPECIMENOrdering Facility: [facility] Address: [address] [place] [address] Result Comment: <130 mg/dL, Optimal 130-159 mg/dL, Near optimal/above optimal 160-189 mg/dL, Borderline high 190-219 mg/dL, High >219 mg/dL, Very high Secondary prevention optimal non HDL Cholesterol levels are recommended to be <100 mg/dL Performed By: #### 2 4331-1, 12167-9, 3015-3 ####[facility] LABCLIA [id number] [facility] [address] [place] [address] [place] Cholesterol.total/Ch olesterol in HDL [Mass ratio] 2.15 {ratio} Normal <5.10 [facility] Comment on above: Order Comment: Speci men Type: BLOOD SPECIMENOrdering Facility: [facility] Address: [address] [place] [id number] Performed By: #### 2 4331-1, 68841-0, 3015-3 ####[facility] LABCLIA [id number] [address], [facility] [place] FASTING TIME 12 hrs Normal [facility] Comment on above: Order Comment: Speci men Type: BLOOD SPECIMENOrdering Facility: [facility] Address: [address] [place] [address] Performed By: #### 2 4331-1, 44563-1, 3016-3 ####[facility] LABCLIA [id number] [place] [address] [place] Triglyceride [Mass/Vol] 60 mg/dL Normal <150 [facility] Comment on above: Order Comment: Speci men Type: BLOOD SPECIMENOrdering Facility: [facility] Address: [address] [place] [address] Result Comment: <150 mg/dL, Normal 150-199 mg/dL, Borderline high 200-499 mg/dL, High >499 mg/dL, Very high Performed By: #### 2 4331-1, 29354-6, 6-3 ####[facility] LABIA [id number] [place] [address] [place] TSH SerPl-aCncon 03-14-2025 TSH Qn 1.550 m[IU]/L Normal 0.270-4.20 0 [facility] Comment on above: Order Comment: Speci men Type: BLOOD SPECIMENOrdering Facility: [facility] Address: [address] [place] [address] Performed By: #### 2 4331-1, 53845-1, 3016-3 ####[facility] LABIA [id number] [place] [id number] [place] CNPGia 03-06-2025 CNPN Telephone (FAMWS) -- GREYSON ROJAS ([id number]) 1970 F Date Time Provider Department 03/06/25 GALLO SANCHES During your visit today, we recorded the following information about you: Smitha Hadley LPN 03/06/2025 4:12 PM Signed Clementina Rojas [facility] Clinical Pool [facility] Doctor G- I have my yearly check up coming up on . I was wondering if you would put in an order for the yearly bloodwork tests that we do so that I can do that ahead of my appointment. Thanks Gallo Judge DO 03/06/2025 5:10 PM Signed Labs are ordered Please let her know DO Anusha Guevara Susan LPN 03/06/2025 5:23 PM Signed Pt. informed via My Chart. Allergies As of Date: 03/06/2025 Noted Allergy Reaction PENICILLINS 01/29/2006 4 - Hives Comments: Other reaction(s): hives all over body NICKEL 07/31/2023 2 - Rash Date Reviewed: 01/30/2025 Reviewed by: Ceci Luna PA-C - Fully Assessed Primary Visit Diagnosis:Well adult exam [Z00.00] Other Visit Diagnoses:Hyperlipidemia, mixed [E78.2] Fatigue, unspecified type [R53.83] Anemia, unspecified type [D64.9] Vitamin D deficiency [E55.9] Order(s):COMPREHENSIVE METABOLIC PANEL [SQCMP] Order #: [id number] FUTURE COMPLETE BLOOD COUNT AND DIFFERENTIAL [SQCBCDIF] Order #: [id number] FUTURE LIPID PANEL, FASTING [SQLIPB] Order #: [id number] FUTURE HEMOGLOBIN A1C [FFULT2M] Order #: [id number] FUTURE THYROID STIMULATING HORMONE [SQTSH] Order #: [id number] FUTURE VITAMIN D 25 HYDROXY [SQVITD] Order #: [id number] FUTURE Prescriptions as of 03/06/2025 - plecanatide (TRULANCE) 3 mg tablet Take 1 tablet by mouth once daily. - famotidine (PEPCID) 20 mg tablet TAKE 1 TABLET TWICE A DAY NEEDED - estradiol (ESTRACE) 0.01 % (0.1 mg/gram) vaginal cream INSERT 1 GRAM VAGINALLY 3 TIMES A WEEK BEFORE BED - omeprazole (PRILOSEC) 20 mg capsule TAKE 1 CAPSULE ONCE DAILY - rosuvastatin (CRESTOR) 5 mg tablet Take 1 tablet by mouth daily at bedtime. - venlafaxine ER (EFFEXOR XR) 37.5 mg 24 hr capsule TAKE 1 CAPSULE ONCE DAILY - KRILL OIL ORAL Take 800 mg by mouth once daily. - GEMTESA 75 mg tablet Take 75 mg by mouth once daily. - COMPRESSION SLEEVE as directed. Breast cancer. 20-30 mmHg - mecobalamin (B12 ACTIVE ORAL) Take 1 tablet by mouth once daily. - CALCIUM CARBONATE/VITAMIN D3 (VITAMIN D-3 ORAL) Take by mouth twice daily. Problem List As Of Date 03/06/2025 Noted Resolved ACNE NEC [L70.8] 12/17/2006 FOLLICULITIS///HAIR DISEASES NEC [L67.8, L73.8] 12/17/2006 11/11/2007 PYODERMA NOS [L08.0] 12/17/2006 RASH///NONSPECIF SKIN ERUPT NEC [R21] 12/17/2006 11/11/2007 SUNBURN [L55.9] 01/29/2007 11/11/2007 SEBACEOUS CYST [L72.3] 08/27/2007 11/11/2007 SEBORRHEA [L21.9] 08/27/2007 XEROSIS///SEBACEOUS GLAND DIS NEC [L73.8] 08/27/2007 11/11/2007 PALPITATIONS [R00.2] 11/11/2007 DEPRESS PSYCHOSIS-UNSPEC - 1 episode [F32.9] Anxiety [F41.9] HYPOGLYCEMIA NOS [E16.2] 11/11/2007 SEBACEOUS CYST [L72.3] 12/01/2007 Scar Condition and Fibrosis of Skin [L90.5] 06/27/2009 Dermatofibroma of Left Forearm near Wrist [D23.*06/27/2009 Carcinoma of upper-outer quadrant of right bill*08/04/2017 History of breast cancer [Z85.3] 02/10/2018 New daily persistent headache [G44.52] 10/07/2018 Lump or mass in breast [N63.0] 02/23/2019 Nonallergic rhinitis [J31.0] 03/16/2019 Acute right-sided low back pain with right-side*07/10/2021 Osteoarthritis of spine with radiculopathy, lum*07/10/2021 Pelvic pain in female [R10.2] 10/15/2021 Dyspareunia, psychogenic [F52.6] 10/15/2021 Cystocele with prolapse [N81.4] 10/15/2021 H. pylori infection [A04.8] 11/25/2021 Gastroesophageal reflux disease with esophagiti*11/25/2021 Cough [R05.9] 11/25/2021 Hoarseness [R49.0] 11/25/2021 TOÑA (iron deficiency anemia) [D50.9] 12/16/2021 Acetabular labrum tear, right, subsequent encou*12/16/2021 Patellofemoral arthralgia of left knee [M25.562]12/17/2022 Chronic right-sided thoracic back pain [M54.6, *12/17/2022 Well adult exam [Z00.00] 03/10/2023 Osteoporosis [M81.0] 03/10/2023 Dyslipidemia [E78.5] 03/10/2023 History of mastectomy [Z90.10] 03/11/2023 History of bilateral breast implants [Z98.82] 03/11/2023 Use of tamoxifen (Nolvadex) [Z79.810] 03/27/2023 03/13/2024 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] 04/23/2023 Facial twitching [G51.4] 03/16/2024 It band syndrome, 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] 03/16/2024 Gastroesophageal reflux disease without esophag*03/16/2024 Persistent dry cough [R05.3] 03/16/2024 Vitamin D deficiency [E55.9] 03/16/2024 Hyperlipidemia, mixed [E78.2] 03/16/2024 Fatigue [R53.83] 03/16/2024 Anemia [D64.9] 03/16/2024 Encounter Status:Closed by SMITHA HADLEY LPN on 03/06/25 [facility] CNOVon 01-30-2025 CNOV Office Visit (GSTNOR ) -- GREYSON ROJAS ([id number]) 1970 F Date Time Provider Department 01/30/25 10:05 AM CECI LUNA GSTKAREN During your visit today, we recorded the following information about you: Pulse Blood pressure Weight Height 60/minute 104/70 64.6 kg 1.632 m Ceci Luna PA-C 01/30/2025 10:33 AM Signed CHIEF COMPLAINT: Patient presents with: Recheck: IBS HPI Greyson Rojas is a 55 year old female here today for Recheck (IBS ) Patient tells me that she is doing okay. Notes that her constipation comes and flares. Notes that she is taking IBSRELA BID. Will have constipation or profuse diarrhea. Will add prunes or a stool softener but her bowels are all over the place. She is having bloating and pain on occasion. Still gluten free. Last OV with me 08/01/2024: Assessment/Plan (K21.9) Gastroesophageal reflux disease, unspecified whether esophagitis present (primary encounter diagnosis) (K58.1) Irritable bowel syndrome with constipation (K90.41) NCGS (non-celiac gluten sensitivity) (R14.0) Bloating 1. Gastroesophageal reflux disease, unspecified whether esophagitis present -- Patient doing well today on Omeprazole 20 mg and Pepcid. Refilled her Pepcid today. - famotidine (PEPCID) 20 mg tablet; Take 1 tablet by mouth two times a day as needed. Dispense: 120 tablet; Refill: 3 2. Irritable bowel syndrome with constipation -- Patient with ongoing bowel changes with bloating. Still taking the IBSRELA but uncertain if it is helping. -- Will get abdominal x-ray r/o stool burden -- Will get Fructose testing -- CSID box given today as well - BREATH TEST FRUCTOSE; Future - XR ABDOMEN 2V ROUTINE SUPINE W UPRIGHT/DECUB/CTL; Future 3. NCGS (non-celiac gluten sensitivity) -- Continue with watching gluten -- Will get Fructose testing -- CSID box given today as well - BREATH TEST FRUCTOSE; Future 4. Bloating -- Continue with watching gluten -- Will get Fructose testing -- CSID box given today as well - BREATH TEST FRUCTOSE; Future Follow up in office 6 months/PRN. Current Outpatient Medications Medication Sig famotidine (PEPCID) 20 mg tablet TAKE 1 TABLET TWICE A DAY NEEDED estradiol (ESTRACE) 0.01 % (0.1 mg/gram) vaginal cream INSERT 1 GRAM VAGINALLY 3 TIMES A WEEK BEFORE BED IBSRELA 50 mg tablet TAKE ONE TABLET BY MOUTH TWICE DAILY WITH MEALS omeprazole (PRILOSEC) 20 mg capsule TAKE 1 CAPSULE ONCE DAILY rosuvastatin (CRESTOR) 5 mg tablet Take 1 tablet by mouth daily at bedtime. venlafaxine ER (EFFEXOR XR) 37.5 mg 24 hr capsule TAKE 1 CAPSULE ONCE DAILY KRILL OIL ORAL Take 800 mg by mouth once daily. GEMTESA 75 mg tablet Take 75 mg by mouth once daily. COMPRESSION SLEEVE as directed. Breast cancer. 20-30 mmHg mecobalamin (B12 ACTIVE ORAL) Take 1 tablet by mouth once daily. CALCIUM CARBONATE/VITAMIN D3 (VITAMIN D-3 ORAL) Take by mouth twice daily. No current facility-administered medications for this visit. ALLERGIES Allergen Reactions Penicillins Hives Other reaction(s): hives all over body Nickel Rash Social History Tobacco Use Smoking status: Never Smokeless tobacco: Never Vaping Use Vaping status: Never Used Substance Use Topics Alcohol use: No Drug use: No PAST MEDICAL HISTORY Diagnosis Date Anemia, unspecified iron deficiency Breast cancer (HCC) 08/2017 Breast mass 06/2017 right breast Diffuse cystic mastopathy Helicobacter pylori infection Hiatal hernia History of prolapse of bladder Major depressive disorder, single episode, unspecified 1999 depressed year after 3rd child: treated for 1 year with Zoloft Meniere disease Dr. Marie ENT Panic disorder without agoraphobia periodic symptoms Use of tamoxifen (Nolvadex) 03/27/2023 PAST SURGICAL HISTORY Procedure Laterality Date BREAST RECONSTRUCTION implants removed and replaced BX BREAST W/DEVICE 1ST LESION ULTRASOUND GUID Right 06/12/2017 3 nodules; 5cm, 3cm, 3cm COLONOSCOPY 03/16/2023 COLONOSCOPY FLX DX W/COLLJ SPEC WHEN PFRMD 03/01/2018 Colonoscopy CYSTOCELE REPAIR 01/07/2024 CYSTOCELE REPAIR 01/07/2024 EGD N/A 11/05/2021 EGD W/O BRSH SPEC VARICIES INJ 04/29/2024 Normal FOOT SURGERY HX Left 1982 Arch reshaping HIP SURGERY HX 01/08/2022 torn labrum, reshaped femoral head LAPAROSCOPIC SALPING/OOPHORECTOMY Right 02/24/2019 Dr. Jasmin Sosa MASTECTOMY, SIMPLE, COMPLETE Bilateral 08/18/2017 Dr. Johnson (reconstruction), Dr. 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 Sosa-[facility] TOTAL ABD HYSTERECTOMY+BLAD REPR N/A 2020 left ovary removed; Dr. Sosa-[facility]- total hysterectomy with rectocele and bladder sling TOTAL KNEE REP (more content not included)... Normal [facility] CNOVon 01-17-2025 CNOV Office Visit (FAMPWS ) -- GREYSON ROJAS ([id number]) 1970 F Date Time Provider Department 01/17/25 12:00 PM GALLO SANCHES FAMPWS During your visit today, we recorded the following information about you: Shana Holder LPN 02/10/2025 9:35 AM Signed OPENED IN ERROR Allergies As of Date: 01/17/2025 Noted Allergy Reaction PENICILLINS 01/29/2006 4 - Hives Comments: Other reaction(s): hives all over body NICKEL 07/31/2023 2 - Rash Date Reviewed: 01/02/2025 Reviewed by: Albin Crisostomo OCCA - Fully Assessed Reason for Visit: Forms [913] Primary Visit Diagnosis:OPENED IN ERROR Prescriptions as of 02/10/2025 - plecanatide (TRULANCE) 3 mg tablet Take 1 tablet by mouth once daily. - famotidine (PEPCID) 20 mg tablet TAKE 1 TABLET TWICE A DAY NEEDED - estradiol (ESTRACE) 0.01 % (0.1 mg/gram) vaginal cream INSERT 1 GRAM VAGINALLY 3 TIMES A WEEK BEFORE BED - omeprazole (PRILOSEC) 20 mg capsule TAKE 1 CAPSULE ONCE DAILY - rosuvastatin (CRESTOR) 5 mg tablet Take 1 tablet by mouth daily at bedtime. - venlafaxine ER (EFFEXOR XR) 37.5 mg 24 hr capsule TAKE 1 CAPSULE ONCE DAILY - KRILL OIL ORAL Take 800 mg by mouth once daily. - GEMTESA 75 mg tablet Take 75 mg by mouth once daily. - COMPRESSION SLEEVE as directed. Breast cancer. 20-30 mmHg - mecobalamin (B12 ACTIVE ORAL) Take 1 tablet by mouth once daily. - CALCIUM CARBONATE/VITAMIN D3 (VITAMIN D-3 ORAL) Take by mouth twice daily. Problem List As Of Date 01/17/2025 Noted Resolved ACNE NEC [L70.8] 12/17/2006 FOLLICULITIS///HAIR DISEASES NEC [L67.8, L73.8] 12/17/2006 11/11/2007 PYODERMA NOS [L08.0] 12/17/2006 RASH///NONSPECIF SKIN ERUPT NEC [R21] 12/17/2006 11/11/2007 SUNBURN [L55.9] 01/29/2007 11/11/2007 SEBACEOUS CYST [L72.3] 08/27/2007 11/11/2007 SEBORRHEA [L21.9] 08/27/2007 XEROSIS///SEBACEOUS GLAND DIS NEC [L73.8] 08/27/2007 11/11/2007 PALPITATIONS [R00.2] 11/11/2007 DEPRESS PSYCHOSIS-UNSPEC - 1 episode [F32.9] Anxiety [F41.9] HYPOGLYCEMIA NOS [E16.2] 11/11/2007 SEBACEOUS CYST [L72.3] 12/01/2007 Scar Condition and Fibrosis of Skin [L90.5] 06/27/2009 Dermatofibroma of Left Forearm near Wrist [D23.*06/27/2009 Carcinoma of upper-outer quadrant of right bill*08/04/2017 History of breast cancer [Z85.3] 02/10/2018 New daily persistent headache [G44.52] 10/07/2018 Lump or mass in breast [N63.0] 02/23/2019 Nonallergic rhinitis [J31.0] 03/16/2019 Acute right-sided low back pain with right-side*07/10/2021 Osteoarthritis of spine with radiculopathy, lum*07/10/2021 Pelvic pain in female [R10.2] 10/15/2021 Dyspareunia, psychogenic [F52.6] 10/15/2021 Cystocele with prolapse [N81.4] 10/15/2021 H. pylori infection [A04.8] 11/25/2021 Gastroesophageal reflux disease with esophagiti*11/25/2021 Cough [R05.9] 11/25/2021 Hoarseness [R49.0] 11/25/2021 TOÑA (iron deficiency anemia) [D50.9] 12/16/2021 Acetabular labrum tear, right, subsequent encou*12/16/2021 Patellofemoral arthralgia of left knee [M25.562]12/17/2022 Chronic right-sided thoracic back pain [M54.6, *12/17/2022 Well adult exam [Z00.00] 03/10/2023 Osteoporosis [M81.0] 03/10/2023 Dyslipidemia [E78.5] 03/10/2023 History of mastectomy [Z90.10] 03/11/2023 History of bilateral breast implants [Z98.82] 03/11/2023 Use of tamoxifen (Nolvadex) [Z79.810] 03/27/2023 03/13/2024 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] 04/23/2023 Facial twitching [G51.4] 03/16/2024 It band syndrome, 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] 03/16/2024 Gastroesophageal reflux disease without esophag*03/16/2024 Persistent dry cough [R05.3] 03/16/2024 Vitamin D deficiency [E55.9] 03/16/2024 Hyperlipidemia, mixed [E78.2] 03/16/2024 Fatigue [R53.83] 03/16/2024 Anemia [D64.9] 03/16/2024 Encounter Status:Closed by SHANA HOLDER on 02/10/25 Normal [facility] CNOVon 01-02-2025 [facility] GREYSON ROJAS ([id number]) 1970 F Date Time Provider Department 01/02/25 10:00 AM YOVANI DONOHUE [facility] During your visit today, we recorded the following information about you: Temperature Pulse Blood pressure Weight 97.3 degrees 73/minute 107/69 63.2 kg Yovani Donohue MD 01/02/2025 10:58 AM Signed [facility] - FOLLOW UP EVALUATION Recording using [employer] software for draft documentation of the visit was discussed with the patient/authorized sales representative metals; all questions welcomed and answered. Patient/authorized sales representative metals agreed to proceed Gallo Sanches DO [address] [facility] [id number] Dear Gallo Sanches DO: I had the pleasure of seeing Ms. Rojas for follow-up today. As you know she is a 54 year old right-handed female with a history of Facial twitching since 2022. 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 Not currently Interval History: Clementina is a 54-year-old female presenting for follow-up regarding facial twitching and possible bradykinesia. Clementina reports that facial twitching occurs primarily after consuming larger amounts of caffeine. The twitching is brief, affecting the right side of her face and the left side above her lip. She has not been able to capture these episodes on video due to their short duration. Since switching to decaffeinated coffee and soda, she notes a significant reduction in twitching episodes, which now occur only after occasional caffeinated beverages. She also experiences occasional tremors in her right arm, which she associates with caffeine intake or after intense arm workouts. She underwent a bilateral mastectomy for breast cancer, with more extensive surgery on the right side, and wonders if this contributes to the tremors. She does not report tremors at rest, changes in handwriting size, or any new symptoms of slowness or shuffling. She does not endorse falls, memory changes, hallucinations, or changes in her sense of smell, though she notes that her sense of smell has been inconsistent since a COVID-19 infection. She has a history of a shoulder fracture approximately eight years ago, which healed slightly crooked without surgery. She does not report any current issues related to this injury. 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 She engages in regular physical activity, including using an elliptical machine to improve arm function. She also reports being a sleep talker, sometimes reenacting teaching scenarios or games in her sleep, but does not endorse acting out dreams with physical movements such as kicking or punching. Movement Disorders Medications Schedule - as of the start of the visit: Medications Questionnaires: In addition, the following symptoms that may be associated with Tourette?s syndrome or tic disorder were evaluated on how much they bothered the patent in the past week: Irritable: (P) No Motor tics: (P) Yes, a little Being argumentative: (P) Yes (a little) Sudden mood changes: (P) Yes (a little) Demanding attention: (P) o Being hot tempered: (P) Yes (a little) Vocal tics: (P) Yes, a little Obsessiveness: (P) No Inattentiveness: (P) Yes, a little Being talkative: (P) No Feeling restless: (P) Yes (a little) Compulsions: (P) No Tense, anxious, nervous: (P) Yes (a little) Depressed, uninterested: (P) No Impulsive: (P) No Number of falls in the Last Month: 0 Mood/Behavior Depression: PHQ-9 Score: 0 usually representing no significant (0-4) depression. Anxiety: ELADIA-7 Total Score: 0 usually representing no significant (0-4) anxiety. Finally, the following table shows the patient's overall global physical and mental health using the PROMIS scale: PROMIS-10 Flowsheet Row Office Visit from 01/02/2025 in Neurology [facility] Office Visit from 03/16/2024 in Family Medicine [facility] Global Physical Health T Score 54.1 54.1 Global Mental Health T Score 53.3 56 0-10 Standard Pain Scale 4 4 *PROMIS-10 scoring scale: mean = 50, over 50 is above average, under 50 is below average ALLERGIES Allergen Reactions Penicillins Hives Other reaction(s): hives all over body Nickel Rash Current Outpatient Medications Medication Sig estradiol (ESTRACE) 0.01 % (0.1 mg/gram) vaginal cream INSERT 1 GRAM VAGINALLY 3 TIMES A WEEK BEFORE BED IBSRELA 50 mg tablet TAKE ONE TABLET BY MOUTH TWICE DAILY WITH MEALS omeprazole (PRILOSEC) 20 mg capsule TAKE 1 CAPSULE ONCE DAILY rosuvastatin (CRESTOR) 5 mg tablet Take 1 tablet by mouth daily at bedtime. venlafaxine ER (EFFEXOR XR) 37.5 mg 24 hr capsule TAKE 1 CAPSULE ONCE DAILY famotidine (PEPCI (more content not included)... [facility] CNOVon 11-09-2024 CNOV Office Visit (NICHOLAS ) -- CRYSTALGREYSON CLEMENTINA ([id number]) 1970 F Date Time Provider Department 11/09/24 4:40 PM ESME WISDOM During your visit today, we recorded the following information about you: Pulse Respiration Blood pressure Weight 66/minute 16/minute 116/79 63.5 kg Height 1.632 m Esme Wisdom MD 11/09/2024 5:18 PM Signed ENDOCRINOLOGY CLINIC NOTE Reason for visit Greyson Clementina Rojas is a pleasant 54 year old female with history of GERD and breast cancer presented for follow up of low bone density. HPI Ms. Rojas was diagnosed with breast cancer and underwent b/l mastectomy in 2018, pathology showed lobular carcinoma with no mets. She was started on Tamoxifen 09/2017, and anastrozole in 10/2020 but could not tolerate due to joint pain. The plan is to take Tamoxifen for a total of 5 years (will finish in 09/2022) Of note, she is a carrier for H63D for hemochromatosis. Evaluation in 05/2022 showed total Ca 9. iCa 1.15, P 3.3, vitamin D 68, PTH 59, GFR 67, 24 hr urine Ca 75 and SPEP with no M protein. Screening spine xrays did not show fractures We started her on Evenity in 10/2022 and finished a 1 year course, and was then transition to Prolia. She initially had local skin allergic reaction responded well to Benadryl. She was complaining of knee pain. MRI was done showing arthritic changes She is taking calcium citrate and has vitamin D in it. Labs in 03/2024 showed calcium 8.9, GFR 87, vitamin D 51.2 No falls or fractures since last visit DXA scan 05/30/2024 compared to 2023 Lumbar spine (L1, L2, L3, L4): 0.811 g/cm2, T-score -2.1 (TBS adjusted -2.9) Statistically significant increase Left Femoral Neck: 0.640 g/cm2, T-score -1.9 Statistically significant increase Left Total Hip: 0.800 g/cm2, T-score -1.2 No statistically significant change Fracture history: Shoulder fracture 6 years ago during running and a fall Treatment history (including any side effects/contraindications) : Evenity 10/2022-09/2023 Prolia 10/2023-present Family history of metabolic bone disease or fractures: Mother has osteoporosis and had shoulder fracture Father had hip fracture Risk factors: > Menstrual history/male hypogonadism: - last period: early 50s - periods were regular > Medication exposures/pertinent medical or 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: (Glucocorticoid, AED use, relevant medications, hyperthyroidism, kidney stone/disease, eating disorder, malabsorption, immobility, smoking, excessive alcohol use etc) Anastrozole exposure. No smoking or excessive alcohol intake Calcium/Vit D intake: Dietary calcium: Supplements: was on calcium carbonate and switched to citrate 1200 mg per day Vitamin D intake: with the supplements Weight bearing exercise: She does yoga and lift weights, and cardio Dental Procedure: None Radiation Exposure: None Height Loss: Possibly half an inch Past Medical History PAST MEDICAL HISTORY Diagnosis Date Anemia, unspecified iron deficiency Breast cancer (HCC) 08/2017 Breast mass 06/2017 right breast Diffuse cystic mastopathy Helicobacter pylori infection Hiatal hernia History of prolapse of bladder Major depressive disorder, single episode, unspecified 1999 depressed year after 3rd child: treated for 1 year with Zoloft Meniere disease Dr. Marie ENT Panic disorder without agoraphobia periodic symptoms Use of tamoxifen (Nolvadex) 03/27/2023 Past Surgical History PAST SURGICAL HISTORY Procedure Laterality Date BREAST RECONSTRUCTION implants removed and replaced BX BREAST W/DEVICE 1ST LESION ULTRASOUND GUID Right 06/12/2017 3 nodules; 5cm, 3cm, 3cm COLONOSCOPY 03/16/2023 COLONOSCOPY FLX DX W/COLLJ SPEC WHEN PFRMD 03/01/2018 Colonoscopy CYSTOCELE REPAIR 01/07/2024 CYSTOCELE REPAIR 01/07/2024 EGD N/A 11/05/2021 EGD W/O [facility] SPEC VARICIES INJ 04/29/2024 Normal FOOT SURGERY HX Left 1981 Arch reshaping HIP SURGERY HX 01/08/2022 torn labrum, reshaped femoral head LAPAROSCOPIC SALPING/OOPHORECTOMY Right 02/24/2019 Dr. Jasmin Sosa MASTECTOMY, SIMPLE, COMPLETE Bilateral 08/18/2017 Dr. Johnson (reconstruction), Dr. 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 Sosa-[facility] TOTAL ABD HYSTERECTOMY+BLAD REPR N/A 2020 left ovary removed; Dr. Sosa-[facility]- total hysterectomy with rectocele and bladder sling TOTAL KNEE REPLACEMENT Left 07/24/2023 Medications Current Outpatient Medications Medication Sig IBSRELA 50 mg tablet TAKE ONE TABLET BY MOUTH TWICE DAILY WITH MEALS omeprazole (PRILOSEC) 20 mg capsule TAKE 1 CAPSULE ONCE DAILY rosuvastatin (CRESTOR) 5 mg tablet Take 1 tablet by mouth daily at bedtime. venlafa (more content not included)... [facility] CNOV Office Visit (ENDMED ) -- GREYSON RJOAS ([id number]) 1970 F Date Time Provider Department 11/09/24 4:40 PM NURSE LYLA [facility] NICHOLAS During your visit today, we recorded the following information about you: Adam Joy RN 11/09/2024 5:06 PM Signed The patient is here for an injection of Prolia Dose: 60 mg Route: Subcutaneous Lot# [id number] Expiration date 01/30/27 [facility]: 90839-811-08 Given without incident. Site: left arm Dr. Wisdom present in clinic at time of injection. The date due for the next injection is in 6 months, on or after 05/11/25. Last injection: 04/29/24 ZBIGNIEW:10/07/23 NOV: Today Insurance: Primary= MMOO- No PA Required Labs: 03/14/24 Calcium 8.9, 04/18/24 Vitamin D 51.2 DX: M81.8 CPT: J0897 DXA: 05/04/24 (T-Score: -2.1 Spine) Patient education was given by nurse. Patient tolerated Injection well, in NAD and no reactions noted. Medication supplied by [facility] [employer] AND BILL. Adam oJy RN Allergies As of Date: 11/09/2024 Noted Allergy Reaction PENICILLINS 01/29/2006 4 - Hives Comments: Other reaction(s): hives all over body NICKEL 07/31/2023 2 - Rash Date Reviewed: 11/09/2024 Reviewed by: Adam Joy, SHELL - Fully Assessed Reason for Visit: Prolia Injection [Other] Primary Visit Diagnosis:Other osteoporosis without current pathological fracture [M81.8] Prescriptions as of 11/09/2024 - IBSRELA 50 mg tablet TAKE ONE TABLET BY MOUTH TWICE DAILY WITH MEALS - omeprazole (PRILOSEC) 20 mg capsule TAKE 1 CAPSULE ONCE DAILY - rosuvastatin (CRESTOR) 5 mg tablet Take 1 tablet by mouth daily at bedtime. - venlafaxine ER (EFFEXOR XR) 37.5 mg 24 hr capsule TAKE 1 CAPSULE ONCE DAILY - famotidine (PEPCID) 20 mg tablet Take 1 tablet by mouth two times a day as needed. - loratadine 10 mg cap Take by mouth. - KRILL OIL ORAL Take 800 mg by mouth once daily. - GEMTESA 75 mg tablet Take 75 mg by mouth once daily. - COMPRESSION SLEEVE as directed. Breast cancer. 20-30 mmHg - mecobalamin (B12 ACTIVE ORAL) Take 1 tablet by mouth once daily. - CALCIUM CARBONATE/VITAMIN D3 (VITAMIN D-3 ORAL) Take by mouth twice daily. Problem List As Of Date 11/09/2024 Noted Resolved ACNE NEC [L70.8] 12/17/2006 FOLLICULITIS///HAIR DISEASES NEC [L67.8, L73.8] 12/17/2006 11/11/2007 PYODERMA NOS [L08.0] 12/17/2006 RASH///NONSPECIF SKIN ERUPT NEC [R21] 12/17/2006 11/11/2007 SUNBURN [L55.9] 01/29/2007 11/11/2007 SEBACEOUS CYST [L72.3] 08/27/2007 11/11/2007 SEBORRHEA [L21.9] 08/27/2007 XEROSIS///SEBACEOUS GLAND DIS NEC [L73.8] 08/27/2007 11/11/2007 PALPITATIONS [R00.2] 11/11/2007 DEPRESS PSYCHOSIS-UNSPEC - 1 episode [F32.9] Anxiety [F41.9] HYPOGLYCEMIA NOS [E16.2] 11/11/2007 SEBACEOUS CYST [L72.3] 12/01/2007 Scar Condition and Fibrosis of Skin [L90.5] 06/27/2009 Dermatofibroma of Left Forearm near Wrist [D23.*06/27/2009 Carcinoma of upper-outer quadrant of right bill*08/04/2017 History of breast cancer [Z85.3] 02/10/2018 New daily persistent headache [G44.52] 10/07/2018 Lump or mass in breast [N63.0] 02/23/2019 Nonallergic rhinitis [J31.0] 03/16/2019 Acute right-sided low back pain with right-side*07/10/2021 Osteoarthritis of spine with radiculopathy, lum*07/10/2021 Pelvic pain in female [R10.2] 10/15/2021 Dyspareunia, psychogenic [F52.6] 10/15/2021 Cystocele with prolapse [N81.4] 10/15/2021 H. pylori infection [A04.8] 11/25/2021 Gastroesophageal reflux disease with esophagiti*11/25/2021 Cough [R05.9] 11/25/2021 Hoarseness [R49.0] 11/25/2021 TOÑA (iron deficiency anemia) [D50.9] 12/16/2021 Acetabular labrum tear, right, subsequent encou*12/16/2021 Patellofemoral arthralgia of left knee [M25.562]12/17/2022 Chronic right-sided thoracic back pain [M54.6, *12/17/2022 Well adult exam [Z00.00] 03/10/2023 Osteoporosis [M81.0] 03/10/2023 Dyslipidemia [E78.5] 03/10/2023 History of mastectomy [Z90.10] 03/11/2023 History of bilateral breast implants [Z98.82] 03/11/2023 Use of tamoxifen (Nolvadex) [Z79.810] 03/27/2023 03/13/2024 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] 04/23/2023 Facial twitching [G51.4] 03/16/2024 It band syndrome, 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] 03/16/2024 Gastroesophageal reflux disease without esophag*03/16/2024 Persistent dry cough [R05.3] 03/16/2024 Vitamin D deficiency [E55.9] 03/16/2024 Hyperlipidemia, mixed [E78.2] 03/16/2024 Fatigue [R53.83] 03/16/2024 Anemia [D64.9] 03/16/2024 Encounter Status:Closed by ADAM JOY on 11/09/24 [facility] 11-04-2024 [facility] Telephone ([facility]) -- UDAYGREYSON BOWEN ([id number]) 1970 F Date Time Provider Department 11/04/24 ESME WISDOM During your visit today, we recorded the following information about you: Gisselle Cai RN 11/04/2024 9:53 AM Signed Patient is scheduled for a Prolia Injection on 11/09/24 at 4:[address] CAM order accordingly. Thank you. Allergies As of Date: 11/04/2024 Noted Allergy Reaction PENICILLINS 01/29/2006 4 - Hives Comments: Other reaction(s): hives all over body NICKEL 07/31/2023 2 - Rash Date Reviewed: 09/12/2024 Reviewed by: Yoko Palomino MA - Fully Assessed Reason for Visit: CAM Order Request [Other] Order(s):denosumab 60 mg injection (PROLIA)Disp: Rfl: Prescriptions as of 11/07/2024 - IBSRELA 50 mg tablet TAKE ONE TABLET BY MOUTH TWICE DAILY WITH MEALS - omeprazole (PRILOSEC) 20 mg capsule TAKE 1 CAPSULE ONCE DAILY - rosuvastatin (CRESTOR) 5 mg tablet Take 1 tablet by mouth daily at bedtime. - venlafaxine ER (EFFEXOR XR) 37.5 mg 24 hr capsule TAKE 1 CAPSULE ONCE DAILY - famotidine (PEPCID) 20 mg tablet Take 1 tablet by mouth two times a day as needed. - loratadine 10 mg cap Take by mouth. - KRILL OIL ORAL Take 800 mg by mouth once daily. - GEMTESA 75 mg tablet Take 75 mg by mouth once daily. - COMPRESSION SLEEVE as directed. Breast cancer. 20-30 mmHg - mecobalamin (B12 ACTIVE ORAL) Take 1 tablet by mouth once daily. - CALCIUM CARBONATE/VITAMIN D3 (VITAMIN D-3 ORAL) Take by mouth twice daily. Facility-Administered Medications as of 11/07/2024 - denosumab 60 mg injection (PROLIA) Problem List As Of Date 11/04/2024 Noted Resolved ACNE NEC [L70.8] 12/17/2006 FOLLICULITIS///HAIR DISEASES NEC [L67.8, L73.8] 12/17/2006 11/11/2007 PYODERMA NOS [L08.0] 12/17/2006 RASH///NONSPECIF SKIN ERUPT NEC [R21] 12/17/2006 11/11/2007 SUNBURN [L55.9] 01/29/2007 11/11/2007 SEBACEOUS CYST [L72.3] 08/27/2007 11/11/2007 SEBORRHEA [L21.9] 08/27/2007 XEROSIS///SEBACEOUS GLAND DIS NEC [L73.8] 08/27/2007 11/11/2007 PALPITATIONS [R00.2] 11/11/2007 DEPRESS PSYCHOSIS-UNSPEC - 1 episode [F32.9] Anxiety [F41.9] HYPOGLYCEMIA NOS [E16.2] 11/11/2007 SEBACEOUS CYST [L72.3] 12/01/2007 Scar Condition and Fibrosis of Skin [L90.5] 06/27/2009 Dermatofibroma of Left Forearm near Wrist [D23.*06/27/2009 Carcinoma of upper-outer quadrant of right bill*08/04/2017 History of breast cancer [Z85.3] 02/10/2018 New daily persistent headache [G44.52] 10/07/2018 Lump or mass in breast [N63.0] 02/23/2019 Nonallergic rhinitis [J31.0] 03/16/2019 Acute right-sided low back pain with right-side*07/10/2021 Osteoarthritis of spine with radiculopathy, lum*07/10/2021 Pelvic pain in female [R10.2] 10/15/2021 Dyspareunia, psychogenic [F52.6] 10/15/2021 Cystocele with prolapse [N81.4] 10/15/2021 H. pylori infection [A04.8] 11/25/2021 Gastroesophageal reflux disease with esophagiti*11/25/2021 Cough [R05.9] 11/25/2021 Hoarseness [R49.0] 11/25/2021 TOÑA (iron deficiency anemia) [D50.9] 12/16/2021 Acetabular labrum tear, right, subsequent encou*12/16/2021 Patellofemoral arthralgia of left knee [M25.562]12/17/2022 Chronic right-sided thoracic back pain [M54.6, *12/17/2022 Well adult exam [Z00.00] 03/10/2023 Osteoporosis [M81.0] 03/10/2023 Dyslipidemia [E78.5] 03/10/2023 History of mastectomy [Z90.10] 03/11/2023 History of bilateral breast implants [Z98.82] 03/11/2023 Use of tamoxifen (Nolvadex) [Z79.810] 03/27/2023 03/13/2024 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] 04/23/2023 Facial twitching [G51.4] 03/16/2024 It band syndrome, 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] 03/16/2024 Gastroesophageal reflux disease without esophag*03/16/2024 Persistent dry cough [R05.3] 03/16/2024 Vitamin D deficiency [E55.9] 03/16/2024 Hyperlipidemia, mixed [E78.2] 03/16/2024 Fatigue [R53.83] 03/16/2024 Anemia [D64.9] 03/16/2024 Prescriptions ordered this encounter Disp Refills Start End DENOSUMAB 60 MG/ML SUBCUTANEOUS SYRI* 11/07/2024 12/07/2024 Route: SUBCUTANEOUS Encounter Status:Closed by ESME WISDOM on 11/07/24 [facility] 10-28-2024 CNPN Telephone ([facility]) -- GREYSON ROJAS ([id number]) 1970 F Date Time Provider Department 10/28/24 CECI LUNA During your visit today, we recorded the following information about you: Jessica Irving MA 10/28/2024 1:34 PM Signed Patient has been approved to receive patient assistance through [employer] through 12/18/2024. Jessica Irving MA Allergies As of Date: 10/28/2024 Noted Allergy Reaction PENICILLINS 01/29/2006 4 - Hives Comments: Other reaction(s): hives all over body NICKEL 07/31/2023 2 - Rash Date Reviewed: 09/12/2024 Reviewed by: Yoko Palomino MA - Fully Assessed Reason for Visit: Patient Update [1234] Prescriptions as of 10/28/2024 - IBSRELA 50 mg tablet TAKE ONE TABLET BY MOUTH TWICE DAILY WITH MEALS - omeprazole (PRILOSEC) 20 mg capsule TAKE 1 CAPSULE ONCE DAILY - rosuvastatin (CRESTOR) 5 mg tablet Take 1 tablet by mouth daily at bedtime. - venlafaxine ER (EFFEXOR XR) 37.5 mg 24 hr capsule TAKE 1 CAPSULE ONCE DAILY - famotidine (PEPCID) 20 mg tablet Take 1 tablet by mouth two times a day as needed. - loratadine 10 mg cap Take by mouth. - KRILL OIL ORAL Take 800 mg by mouth once daily. - GEMTESA 75 mg tablet Take 75 mg by mouth once daily. - COMPRESSION SLEEVE as directed. Breast cancer. 20-30 mmHg - mecobalamin (B12 ACTIVE ORAL) Take 1 tablet by mouth once daily. - CALCIUM CARBONATE/VITAMIN D3 (VITAMIN D-3 ORAL) Take by mouth twice daily. Problem List As Of Date 10/28/2024 Noted Resolved ACNE NEC [L70.8] 12/17/2006 FOLLICULITIS///HAIR DISEASES NEC [L67.8, L73.8] 12/17/2006 11/11/2007 PYODERMA NOS [L08.0] 12/17/2006 RASH///NONSPECIF SKIN ERUPT NEC [R21] 12/17/2006 11/11/2007 SUNBURN [L55.9] 01/29/2007 11/11/2007 SEBACEOUS CYST [L72.3] 08/27/2007 11/11/2007 SEBORRHEA [L21.9] 08/27/2007 XEROSIS///SEBACEOUS GLAND DIS NEC [L73.8] 08/27/2007 11/11/2007 PALPITATIONS [R00.2] 11/11/2007 DEPRESS PSYCHOSIS-UNSPEC - 1 episode [F32.9] Anxiety [F41.9] HYPOGLYCEMIA NOS [E16.2] 11/11/2007 SEBACEOUS CYST [L72.3] 12/01/2007 Scar Condition and Fibrosis of Skin [L90.5] 06/27/2009 Dermatofibroma of Left Forearm near Wrist [D23.*06/27/2009 Carcinoma of upper-outer quadrant of right bill*08/04/2017 History of breast cancer [Z85.3] 02/10/2018 New daily persistent headache [G44.52] 10/07/2018 Lump or mass in breast [N63.0] 02/23/2019 Nonallergic rhinitis [J31.0] 03/16/2019 Acute right-sided low back pain with right-side*07/10/2021 Osteoarthritis of spine with radiculopathy, lum*07/10/2021 Pelvic pain in female [R10.2] 10/15/2021 Dyspareunia, psychogenic [F52.6] 10/15/2021 Cystocele with prolapse [N81.4] 10/15/2021 H. pylori infection [A04.8] 11/25/2021 Gastroesophageal reflux disease with esophagiti*11/25/2021 Cough [R05.9] 11/25/2021 Hoarseness [R49.0] 11/25/2021 TOÑA (iron deficiency anemia) [D50.9] 12/16/2021 Acetabular labrum tear, right, subsequent encou*12/16/2021 Patellofemoral arthralgia of left knee [M25.562]12/17/2022 Chronic right-sided thoracic back pain [M54.6, *12/17/2022 Well adult exam [Z00.00] 03/10/2023 Osteoporosis [M81.0] 03/10/2023 Dyslipidemia [E78.5] 03/10/2023 History of mastectomy [Z90.10] 03/11/2023 History of bilateral breast implants [Z98.82] 03/11/2023 Use of tamoxifen (Nolvadex) [Z79.810] 03/27/2023 03/13/2024 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] 04/23/2023 Facial twitching [G51.4] 03/16/2024 It band syndrome, 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] 03/16/2024 Gastroesophageal reflux disease without esophag*03/16/2024 Persistent dry cough [R05.3] 03/16/2024 Vitamin D deficiency [E55.9] 03/16/2024 Hyperlipidemia, mixed [E78.2] 03/16/2024 Fatigue [R53.83] 03/16/2024 Anemia [D64.9] 03/16/2024 Encounter Status:Closed by JESSICA IRVING on 10/28/24 [facility] CNOVsteve 09-12-2024 CNOV Office Visit ([facility] ) -- GREYSON ROJAS ([id number]) 1970 F Date Time Provider Department 09/12/24 11:00 AM SEGUN GALEANA [facility] During your visit today, we recorded the following information about you: Temperature Pulse Respiration Blood pressure 99.1 degrees 90/minute 18/minute 110/62 Weight 62.2 kg Segun Galeana PA 09/12/2024 11:22 AM Signed This note was created using NoteWriter. Subjective Greyson Rojas is a 54 year old female. HPI 54-year-old female presents for cough, body aches, chills, congestion, fever x 2 days. Patient states Thursday evening started getting sick with a cough. Yesterday she had fever, congestion chills and bodyaches. Tmax 99.6 ?F. She denies any vomiting or diarrhea. 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 No history of COPD or asthma. No chest pain or shortness of breath. No other complaint. PAST MEDICAL HISTORY Diagnosis Date Anemia, unspecified iron deficiency Breast cancer (HCC) 08/2017 Breast mass 06/2017 right breast Diffuse cystic mastopathy Helicobacter pylori infection Hiatal hernia History of prolapse of bladder Major depressive disorder, single episode, unspecified 1999 depressed year after 3rd child: treated for 1 year with Zoloft Meniere disease Dr. Marie ENT Panic disorder without agoraphobia periodic symptoms Use of tamoxifen (Nolvadex) 03/27/2023 PAST SURGICAL HISTORY Procedure Laterality Date BREAST RECONSTRUCTION implants removed and replaced BX BREAST W/DEVICE 1ST LESION ULTRASOUND GUID Right 06/12/2017 3 nodules; 5cm, 3cm, 3cm COLONOSCOPY 03/16/2023 COLONOSCOPY FLX DX W/COLLJ SPEC WHEN PFRMD 03/01/2018 Colonoscopy CYSTOCELE REPAIR 01/07/2024 CYSTOCELE REPAIR 01/07/2024 EGD N/A 11/05/2021 EGD W/O [facility] SPEC VARICIES INJ 04/29/2024 Normal FOOT SURGERY HX Left 1981 Arch reshaping HIP SURGERY HX 01/08/2022 torn labrum, reshaped femoral head LAPAROSCOPIC SALPING/OOPHORECTOMY Right 02/24/2019 Dr. Jasmin Sosa MASTECTOMY, SIMPLE, COMPLETE Bilateral 08/18/2017 Dr. Johnson (reconstruction), Dr. 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 Sosa-[facility] TOTAL ABD HYSTERECTOMY+BLAD REPR N/A 2020 left ovary removed; Dr. Sosa-[facility]- total hysterectomy with rectocele and bladder sling TOTAL KNEE REPLACEMENT Left 07/24/2023 ALLERGIES Penicillins and Nickel MEDICATIONS famotidine (PEPCID) 20 mg tablet Take 1 tablet by mouth two times a day as needed. IBSRELA 50 mg tablet take one tablet by mouth twice daily with meals omeprazole (PRILOSEC) 20 mg capsule TAKE 1 CAPSULE ONCE DAILY rosuvastatin (CRESTOR) 5 mg tablet Take 1 tablet by mouth daily at bedtime. venlafaxine ER (EFFEXOR XR) 37.5 mg 24 hr capsule TAKE 1 CAPSULE ONCE DAILY loratadine 10 mg cap Take by mouth. KRILL OIL ORAL Take 800 mg by mouth once daily. GEMTESA 75 mg tablet Take 75 mg by mouth once daily. COMPRESSION SLEEVE as directed. Breast cancer. 20-30 mmHg mecobalamin (B12 ACTIVE ORAL) Take 1 tablet by mouth once daily. CALCIUM CARBONATE/VITAMIN D3 (VITAMIN D-3 ORAL) Take by mouth twice daily. FAMILY HISTORY Problem Relation Age of Onset Cancer Mother melanoma Hypertension Mother Lipids Mother Breast Cancer Mother 63 lumpectomy, radiation, anastrozole x 5 years Diabetes Mother Skin Cancer Mother basel cell Arthritis Father Lipids Father High Triglycerides Heart Father ICD/pacer, CHF/s/p VT (cause of ) Diabetes Father Osteoporosis Sister Diabetes Sister Lipids Sister Osteoporosis Sister other (hydrocephalus) Sister other (spina bifida) Sister Hypertension Brother Osteoporosis Maternal Grandmother Colon Cancer Paternal Grandmother Cancer Paternal Grandfather HCC-EtOH abuse No Known Problems Daughter other (POTS) Daughter 28 other (PCOS) Daughter 25 Heart Maternal Uncle enlarged heart: cardiomyopathy other (ETOH) Paternal Uncle liver, cause of Breast Cancer Maternal cousin 49 Social History Tobacco Use Smoking status: Never Smokeless tobacco: Never Vaping Use Vaping status: Never Used Substance Use Topics Alcohol use: No Drug use: No Review of Systems Constitutional: Positive for chills, fatigue and fever. HENT: Positive for congestion. Negative for ear pain and sore throat. Respiratory: Positive for cough. Negative for shortness of breath. Cardiovascular: Negative for chest pain. Gastrointestinal: Negative for diarrhea and vomiting. Musculoskeletal: Positive for myalgias. Neurological: Positive for headaches. Objective BP 110/62 Pulse 90 Temp 37.3 ?C (99.1 ?F) Resp 18 Wt 62.2 kg (137 lb 2 oz) LMP 06/08/2020 (Gertrude (more content not included)... [facility] INFLUENZA A&B MOLECULAR (POC )on 09-12-2024 Flu A (POCT) Negative Negative [facility] Flu B (POCT) Negative Negative [facility] Procedural Control Valid [facility] Location:[facility], [address], [place], [address] [facility] POINT OF CARE [facility] CNNURSEon 08-26-2024 CNNURSE Nurse Visit (GASTPE) -- GREYSON ROJAS ([id number]) 1970 F Date Time Provider Department 08/26/24 10:30 AM NURSE RAYA DAVIS During your visit today, we recorded the following information about you: Addis Dao MA 08/26/2024 1:56 PM Signed FRUCTOSE Hydrogen Breath Test August 26, 2024 Referring Physician: Ceci Luna PA-C Indication IBS Prep: 4 weeks followin hour before: No Smoking Day of test - No gum chewing Baseline Hydrogen: 1 Methane: 4, Addis Dao MA Time given: 0:55am 25 grams / 25 grams Clock time start: 111am 20 minutes Hydrogen: 3 Methane: 6 Addis Dao MA 40 minutes Hydrogen: 5 Methane: 5 Addis Doa MA 1 hour Hydrogen: 5 Methane: 3 Addis Dao MA 1 hour, 20 minutes Hydrogen: 5 Methane: 7 Addis Dao MA 1 hour, 40 minutes Hydrogen: 6 Methane: 7 Addis Dao MA Symptoms developed during the study: None Patient Results Preliminary Test Results (not given to patient): pending Addis Dao MA Patient must be = Hydrogen >20 in order to be positive for Fructose Intolerance Referring Provider: CECI LUNA [[id number]] Allergies As of Date: 08/26/2024 Noted Allergy Reaction PENICILLINS 01/29/2006 4 - Hives Comments: Other reaction(s): hives all over body NICKEL 07/31/2023 2 - Rash Date Reviewed: 08/01/2024 Reviewed by: Ceci Luna PA-C - Fully Assessed Visit Diagnoses:Irritable bowel syndrome with constipation [K58.1] NCGS (non-celiac gluten sensitivity) [K90.41] Bloating [R14.0] Order(s):BREATH TEST FRUCTOSE [[id number]] Order #: [id number] Prescriptions as of 08/26/2024 - famotidine (PEPCID) 20 mg tablet Take 1 tablet by mouth two times a day as needed. - IBSRELA 50 mg tablet take one tablet by mouth twice daily with meals - omeprazole (PRILOSEC) 20 mg capsule TAKE 1 CAPSULE ONCE DAILY - rosuvastatin (CRESTOR) 5 mg tablet Take 1 tablet by mouth daily at bedtime. - venlafaxine ER (EFFEXOR XR) 37.5 mg 24 hr capsule TAKE 1 CAPSULE ONCE DAILY - loratadine 10 mg cap Take by mouth. - KRILL OIL ORAL Take 800 mg by mouth once daily. - GEMTESA 75 mg tablet Take 75 mg by mouth once daily. - COMPRESSION SLEEVE as directed. Breast cancer. 20-30 mmHg - mecobalamin (B12 ACTIVE ORAL) Take 1 tablet by mouth once daily. - CALCIUM CARBONATE/VITAMIN D3 (VITAMIN D-3 ORAL) Take by mouth twice daily. Problem List As Of Date 08/26/2024 Noted Resolved ACNE NEC [L70.8] 12/17/2006 FOLLICULITIS///HAIR DISEASES NEC [L67.8, L73.8] 12/17/2006 11/11/2007 PYODERMA NOS [L08.0] 12/17/2006 RASH///NONSPECIF SKIN ERUPT NEC [R21] 12/17/2006 11/11/2007 SUNBURN [L55.9] 01/29/2007 11/11/2007 SEBACEOUS CYST [L72.3] 08/27/2007 11/11/2007 SEBORRHEA [L21.9] 08/27/2007 XEROSIS///SEBACEOUS GLAND DIS NEC [L73.8] 08/27/2007 11/11/2007 PALPITATIONS [R00.2] 11/11/2007 DEPRESS PSYCHOSIS-UNSPEC - 1 episode [F32.9] Anxiety [F41.9] HYPOGLYCEMIA NOS [E16.2] 11/11/2007 SEBACEOUS CYST [L72.3] 12/01/2007 Scar Condition and Fibrosis of Skin [L90.5] 06/27/2009 Dermatofibroma of Left Forearm near Wrist [D23.*06/27/2009 Carcinoma of upper-outer quadrant of right bill*08/04/2017 History of breast cancer [Z85.3] 02/10/2018 New daily persistent headache [G44.52] 10/07/2018 Lump or mass in breast [N63.0] 02/23/2019 Nonallergic rhinitis [J31.0] 03/16/2019 Acute right-sided low back pain with right-side*07/10/2021 Osteoarthritis of spine with radiculopathy, lum*07/10/2021 Pelvic pain in female [R10.2] 10/15/2021 Dyspareunia, psychogenic [F52.6] 10/15/2021 Cystocele with prolapse [N81.4] 10/15/2021 H. pylori infection [A04.8] 11/25/2021 Gastroesophageal reflux disease with esophagiti*11/25/2021 Cough [R05.9] 11/25/2021 Hoarseness [R49.0] 11/25/2021 TOÑA (iron deficiency anemia) [D50.9] 12/16/2021 Acetabular labrum tear, right, subsequent encou*12/16/2021 Patellofemoral arthralgia of left knee [M25.562]12/17/2022 Chronic right-sided thoracic back pain [M54.6, *12/17/2022 Well adult exam [Z00.00] 03/10/2023 Osteoporosis [M81.0] 03/10/2023 Dyslipidemia [E78.5] 03/10/2023 History of mastectomy [Z90.10] 03/11/2023 History of bilateral breast implants [Z98.82] 03/11/2023 Use of tamoxifen (Nolvadex) [Z79.810] 03/27/2023 03/13/2024 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 Your fructose breath test is negative. (Breath H2 increases at least 20ppm or breath CH4 increases 12ppm over the lowest preceding value within the test period or combined breath H2 and CH4 increases at least 15ppm may be indicative of a positive study.) Please follow up with the ordering physician with instructions for next steps. Jason Hester MD [facility] FRUCTOSE Hydrogen Breath Test August 26, 2024 Referring Physician: Ceci Luna PA-C Indication IBS Prep: 4 weeks followin hour before: No Smoking Day of test - No gum chewing Baseline Hydrogen: 1 Methane: 4, Addis Restifo, MA Time given: 0:55am 25 grams / 25 grams Clock time start: 111am 20 minutes Hydrogen: 3 Methane: 6 Addis Restifo, MA 40 minutes Hydrogen: 5 Methane: 5 Addis Restifo, MA 1 hour Hydrogen: 5 Methane: 3 Addis Restifo, MA 1 hour, 20 minutes Hydrogen: 5 Methane: 7 Addis Restifo, MA 1 hour, 40 minutes Hydrogen: 6 Methane: 7 Addis Restifo, MA Symptoms developed during the study: None Patient Results Preliminary Test Results (not given to patient): pending Addis Dao MA Patient must be = Hydrogen >20 in order to be positive for Fructose Intolerance [facility] Fructose challenge (hydrogen breath test) panel (Exhl gas)Ordered By: Jason Hester on 08-26-2024 [facility] Work Phone: Radiology Study observation (narrative) [facility] Work Phone: [facility]PG[facility] 08-17-2024 FAHEEMN Telephone (GASTSHAUN) -- GREYSON ROJAS ([id number]) 1970 F Date Time Provider Department 08/17/24 NURSE RAYA DAVIS During your visit today, we recorded the following information about you: LaurynAddisELKE 08/17/2024 9:38 AM Signed Calling pt to make sure all PPI's have been stopped prior to breath test on 08/26/24. No answer, LVM. Addis GantammiELKE Allergies As of Date: 08/17/2024 Noted Allergy Reaction PENICILLINS 01/29/2006 4 - Hives Comments: Other reaction(s): hives all over body NICKEL 07/31/2023 2 - Rash Date Reviewed: 08/01/2024 Reviewed by: Ceci Luna PA-C - Fully Assessed Reason for Visit: Appointment [186] Prescriptions as of 08/17/2024 - famotidine (PEPCID) 20 mg tablet Take 1 tablet by mouth two times a day as needed. - IBSRELA 50 mg tablet take one tablet by mouth twice daily with meals - omeprazole (PRILOSEC) 20 mg capsule TAKE 1 CAPSULE ONCE DAILY - rosuvastatin (CRESTOR) 5 mg tablet Take 1 tablet by mouth daily at bedtime. - venlafaxine ER (EFFEXOR XR) 37.5 mg 24 hr capsule TAKE 1 CAPSULE ONCE DAILY - loratadine 10 mg cap Take by mouth. - KRILL OIL ORAL Take 800 mg by mouth once daily. - GEMTESA 75 mg tablet Take 75 mg by mouth once daily. - COMPRESSION SLEEVE as directed. Breast cancer. 20-30 mmHg - mecobalamin (B12 ACTIVE ORAL) Take 1 tablet by mouth once daily. - CALCIUM CARBONATE/VITAMIN D3 (VITAMIN D-3 ORAL) Take by mouth twice daily. Problem List As Of Date 08/17/2024 Noted Resolved ACNE NEC [L70.8] 12/17/2006 FOLLICULITIS///HAIR DISEASES NEC [L67.8, L73.8] 12/17/2006 11/11/2007 PYODERMA NOS [L08.0] 12/17/2006 RASH///NONSPECIF SKIN ERUPT NEC [R21] 12/17/2006 11/11/2007 SUNBURN [L55.9] 01/29/2007 11/11/2007 SEBACEOUS CYST [L72.3] 08/27/2007 11/11/2007 SEBORRHEA [L21.9] 08/27/2007 XEROSIS///SEBACEOUS GLAND DIS NEC [L73.8] 08/27/2007 11/11/2007 PALPITATIONS [R00.2] 11/11/2007 DEPRESS PSYCHOSIS-UNSPEC - 1 episode [F32.9] Anxiety [F41.9] HYPOGLYCEMIA NOS [E16.2] 11/11/2007 SEBACEOUS CYST [L72.3] 12/01/2007 Scar Condition and Fibrosis of Skin [L90.5] 06/27/2009 Dermatofibroma of Left Forearm near Wrist [D23.*06/27/2009 Carcinoma of upper-outer quadrant of right bill*08/04/2017 History of breast cancer [Z85.3] 02/10/2018 New daily persistent headache [G44.52] 10/07/2018 Lump or mass in breast [N63.0] 02/23/2019 Nonallergic rhinitis [J31.0] 03/16/2019 Acute right-sided low back pain with right-side*07/10/2021 Osteoarthritis of spine with radiculopathy, lum*07/10/2021 Pelvic pain in female [R10.2] 10/15/2021 Dyspareunia, psychogenic [F52.6] 10/15/2021 Cystocele with prolapse [N81.4] 10/15/2021 H. pylori infection [A04.8] 11/25/2021 Gastroesophageal reflux disease with esophagiti*11/25/2021 Cough [R05.9] 11/25/2021 Hoarseness [R49.0] 11/25/2021 TOÑA (iron deficiency anemia) [D50.9] 12/16/2021 Acetabular labrum tear, right, subsequent encou*12/16/2021 Patellofemoral arthralgia of left knee [M25.562]12/17/2022 Chronic right-sided thoracic back pain [M54.6, *12/17/2022 Well adult exam [Z00.00] 03/10/2023 Osteoporosis [M81.0] 03/10/2023 Dyslipidemia [E78.5] 03/10/2023 History of mastectomy [Z90.10] 03/11/2023 History of bilateral breast implants [Z98.82] 03/11/2023 Use of tamoxifen (Nolvadex) [Z79.810] 03/27/2023 03/13/2024 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] 04/23/2023 Facial twitching [G51.4] 03/16/2024 It band syndrome, 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] 03/16/2024 Gastroesophageal reflux disease without esophag*03/16/2024 Persistent dry cough [R05.3] 03/16/2024 Vitamin D deficiency [E55.9] 03/16/2024 Hyperlipidemia, mixed [E78.2] 03/16/2024 Fatigue [R53.83] 03/16/2024 Anemia [D64.9] 03/16/2024 Encounter Status:Closed by ADDIS DAO on 08/17/24 [facility] 08-11-2024 CNPN Telephone (ASCNOR) -- GREYSON ROJAS ([id number]) 1970 F Date Time Provider Department 08/11/24 CECI LUNA During your visit today, we recorded the following information about you: Ramandeep Rayo 08/11/2024 3:32 PM Signed Breath Test is scanned into [facility] e[facility]ci Luna PA-C 08/11/2024 3:34 PM Signed MC sent to patient. Allergies As of Date: 08/11/2024 Noted Allergy Reaction PENICILLINS 01/29/2006 4 - Hives Comments: Other reaction(s): hives all over body NICKEL 07/31/2023 2 - Rash Date Reviewed: 08/01/2024 Reviewed by: Ceci Luna PA-C - Fully Assessed Reason for Visit: Results [95] Prescriptions as of 08/11/2024 - famotidine (PEPCID) 20 mg tablet Take 1 tablet by mouth two times a day as needed. - IBSRELA 50 mg tablet take one tablet by mouth twice daily with meals - omeprazole (PRILOSEC) 20 mg capsule TAKE 1 CAPSULE ONCE DAILY - rosuvastatin (CRESTOR) 5 mg tablet Take 1 tablet by mouth daily at bedtime. - venlafaxine ER (EFFEXOR XR) 37.5 mg 24 hr capsule TAKE 1 CAPSULE ONCE DAILY - loratadine 10 mg cap Take by mouth. - KRILL OIL ORAL Take 800 mg by mouth once daily. - GEMTESA 75 mg tablet Take 75 mg by mouth once daily. - COMPRESSION SLEEVE as directed. Breast cancer. 20-30 mmHg - mecobalamin (B12 ACTIVE ORAL) Take 1 tablet by mouth once daily. - CALCIUM CARBONATE/VITAMIN D3 (VITAMIN D-3 ORAL) Take by mouth twice daily. Problem List As Of Date 08/11/2024 Noted Resolved ACNE NEC [L70.8] 12/17/2006 FOLLICULITIS///HAIR DISEASES NEC [L67.8, L73.8] 12/17/2006 11/11/2007 PYODERMA NOS [L08.0] 12/17/2006 RASH///NONSPECIF SKIN ERUPT NEC [R21] 12/17/2006 11/11/2007 SUNBURN [L55.9] 01/29/2007 11/11/2007 SEBACEOUS CYST [L72.3] 08/27/2007 11/11/2007 SEBORRHEA [L21.9] 08/27/2007 XEROSIS///SEBACEOUS GLAND DIS NEC [L73.8] 08/27/2007 11/11/2007 PALPITATIONS [R00.2] 11/11/2007 DEPRESS PSYCHOSIS-UNSPEC - 1 episode [F32.9] Anxiety [F41.9] HYPOGLYCEMIA NOS [E16.2] 11/11/2007 SEBACEOUS CYST [L72.3] 12/01/2007 Scar Condition and Fibrosis of Skin [L90.5] 06/27/2009 Dermatofibroma of Left Forearm near Wrist [D23.*06/27/2009 Carcinoma of upper-outer quadrant of right bill*08/04/2017 History of breast cancer [Z85.3] 02/10/2018 New daily persistent headache [G44.52] 10/07/2018 Lump or mass in breast [N63.0] 02/23/2019 Nonallergic rhinitis [J31.0] 03/16/2019 Acute right-sided low back pain with right-side*07/10/2021 Osteoarthritis of spine with radiculopathy, lum*07/10/2021 Pelvic pain in female [R10.2] 10/15/2021 Dyspareunia, psychogenic [F52.6] 10/15/2021 Cystocele with prolapse [N81.4] 10/15/2021 H. pylori infection [A04.8] 11/25/2021 Gastroesophageal reflux disease with esophagiti*11/25/2021 Cough [R05.9] 11/25/2021 Hoarseness [R49.0] 11/25/2021 TOÑA (iron deficiency anemia) [D50.9] 12/16/2021 Acetabular labrum tear, right, subsequent encou*12/16/2021 Patellofemoral arthralgia of left knee [M25.562]12/17/2022 Chronic right-sided thoracic back pain [M54.6, *12/17/2022 Well adult exam [Z00.00] 03/10/2023 Osteoporosis [M81.0] 03/10/2023 Dyslipidemia [E78.5] 03/10/2023 History of mastectomy [Z90.10] 03/11/2023 History of bilateral breast implants [Z98.82] 03/11/2023 Use of tamoxifen (Nolvadex) [Z79.810] 03/27/2023 03/13/2024 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] 04/23/2023 Facial twitching [G51.4] 03/16/2024 It band syndrome, 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] 03/16/2024 Gastroesophageal reflux disease without esophag*03/16/2024 Persistent dry cough [R05.3] 03/16/2024 Vitamin D deficiency [E55.9] 03/16/2024 Hyperlipidemia, mixed [E78.2] 03/16/2024 Fatigue [R53.83] 03/16/2024 Anemia [D64.9] 03/16/2024 Encounter Status:Closed by CECI LUNA on 08/11/24 [facility] XR ABD 2V SUPINE W UPR/DECUB /CTLon 08-05-2024 XR ABD 2V SUPINE W UPR/DECUB/CTL * * *Final Report* * * DATE OF EXAM: Aug 05 2024 2:27PM WOX [id number] - XR ABD 2V SUPINE W UPR/DECUB/CTL / PROCEDURE REASON: Irritable bowel syndrome with constipation * * * * Physician Interpretation * * * * EXAM TITLE: XR ABD 2V SUPINE W UPR/DECUB/CTL EXAM DATE/TIME: 08/05/2024 2:27 PM COMPARISON: X-ray abdomen on 04/08/2023 CLINICAL INDICATION/HISTORY: Irritable bowel syndrome. TECHNIQUE: AP views of the abdomen including upright view are presented. FINDINGS: No abnormally dilated bowel loops identified. Small to moderate amount of stool and gas noted in in the large bowel loops. No evidence of free air. There are phleboliths in the pelvis. The spine shows degenerative changes triggers. IMPRESSION: No evidence of free air or bowel obstruction. Cyber Operator: PSCB Transcribe Date/Time: Aug 09 2024 4:20P Dictated by : RILEY HENSON MD This examination was interpreted and the report reviewed and electronically signed by: RILEY HENSON MD on Aug 09 2024 4:24PM EST [id number] [facility] CNOVon 08-01-2024 CNOV Office Visit (GSTNOR ) -- LENNOXGREYSON WADDELL ([id number]) 1970 F Date Time Provider Department 08/01/24 10:05 AM CECI LUNA GSTKAREN During your visit today, we recorded the following information about you: Pulse Blood pressure Weight Height 74/minute 104/70 62.7 kg 1.632 m Ceci Luna PA-C 08/01/2024 10:42 AM Signed CHIEF COMPLAINT: Patient presents with: Recheck: GERD, non-celiac gluten sensitivity HPI Greyson Rojas is a 54 year old female here today for Recheck (GERD, non-celiac gluten sensitivity) Patient tells me that she is uncertain if the IBSRELA is working. Notes that she will have diarrhea several times after taking it but doesn't necessarily feel like she is fully emptying. Still dealing with bloating and gas. Wondering if she has a fructose intolerance. Does note certain foods such certain fruits, starches cause worsening symptoms. Last OV with me 02/01/2024: Assessment/Plan (K58.1) Irritable bowel syndrome with constipation (primary encounter diagnosis) (K21.9) Gastroesophageal reflux disease, unspecified whether esophagitis present (K90.41) NCGS (non-celiac gluten sensitivity) 1. Irritable bowel syndrome with constipation -- Doing well on IBSRELA and stool softeners. Does not need refills today. 2. Gastroesophageal reflux disease, unspecified whether esophagitis present -- Notes chronic cough, was told by Pulmonology that it was GERD related. -- Continue on Omeprazole 20 mg. Okay to use Pepcid up to 40 mg PRN Recommend high protein, high fiber diet. Promotion of salivation through oral lozenges/chewing gum Drink plenty of water Avoid NSAIDs (such as Advil, Ibuprofen, Excedrin, Mobic), tobacco, alcohol, carbonated beverages, caffeine, chocolate, tomato based sauces, spicy/fatty foods, and peppermint Avoid eating less than 3 hours before bed. Elevate the head of the bed 6 inches, or invest in a wedge pillow. Laying on left side with head elevated may help alleviate reflux symptoms. - EGD DIAGNOSTIC; Future 3. NCGS (non-celiac gluten sensitivity) -- Seeing some improvement with a low gluten diet. -- EGD for further evaluation - EGD DIAGNOSTIC; Future Follow up in office 6 months/PRN. Current Outpatient Medications Medication Sig famotidine (PEPCID) 20 mg tablet Take 1 tablet by mouth two times a day as needed. IBSRELA 50 mg tablet take one tablet by mouth twice daily with meals omeprazole (PRILOSEC) 20 mg capsule TAKE 1 CAPSULE ONCE DAILY rosuvastatin (CRESTOR) 5 mg tablet Take 1 tablet by mouth daily at bedtime. venlafaxine ER (EFFEXOR XR) 37.5 mg 24 hr capsule TAKE 1 CAPSULE ONCE DAILY loratadine 10 mg cap Take by mouth. KRILL OIL ORAL Take 800 mg by mouth once daily. GEMTESA 75 mg tablet Take 75 mg by mouth once daily. COMPRESSION SLEEVE as directed. Breast cancer. 20-30 mmHg mecobalamin (B12 ACTIVE ORAL) Take 1 tablet by mouth once daily. CALCIUM CARBONATE/VITAMIN D3 (VITAMIN D-3 ORAL) Take by mouth twice daily. No current facility-administered medications for this visit. ALLERGIES Allergen Reactions Penicillins Hives Other reaction(s): hives all over body Nickel Rash Social History Tobacco Use Smoking status: Never Smokeless tobacco: Never Vaping Use Vaping status: Never Used Substance Use Topics Alcohol use: No Drug use: No PAST MEDICAL HISTORY Diagnosis Date Anemia, unspecified iron deficiency Breast cancer (HCC) 08/2017 Breast mass 06/2017 right breast Diffuse cystic mastopathy Helicobacter pylori infection Hiatal hernia History of prolapse of bladder Major depressive disorder, single episode, unspecified 1999 depressed year after 3rd child: treated for 1 year with Zoloft Meniere disease Dr. Marie ENT Panic disorder without agoraphobia periodic symptoms Use of tamoxifen (Nolvadex) 03/27/2023 PAST SURGICAL HISTORY Procedure Laterality Date BREAST RECONSTRUCTION implants removed and replaced BX BREAST W/DEVICE 1ST LESION ULTRASOUND GUID Right 06/12/2017 3 nodules; 5cm, 3cm, 3cm COLONOSCOPY 03/16/2023 COLONOSCOPY FLX DX W/COLLJ SPEC WHEN PFRMD 03/01/2018 Colonoscopy CYSTOCELE REPAIR 01/07/2024 CYSTOCELE REPAIR 01/07/2024 EGD N/A 11/05/2021 EGD W/O [facility] SPEC VARICIES INJ 04/29/2024 FOOT SURGERY HX Left 1981 Arch reshaping HIP SURGERY HX 01/08/2022 torn labrum, reshaped femoral head LAPAROSCOPIC SALPING/OOPHORECTOMY Right 02/24/2019 Dr. Jasmin Sosa MASTECTOMY, SIMPLE, COMPLETE Bilateral 08/18/2017 Dr. Johnson (reconstruction), Dr. 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 Sosa-[facility] TOTAL ABD HYSTERECTOMY+BLAD REPR N/A 2020 left ovary removed; Dr. Sosa-[facility] (more content not included)... [facility] CNOVon 07-04-2024 CNOV Office Visit (NRESMD H) -- GREYSON ROJAS ([id number]) 1970 F Date Time Provider Department 07/04/24 9:00 AM YOVANI DONOHUE [facility] During your visit today, we recorded the following information about you: Temperature Pulse Blood pressure Weight 97.2 degrees 74/minute 110/71 63.3 kg Height 1.632 m Yovani Donohue MD 07/04/2024 6:50 PM Signed [facility] - NEW PATIENT EVALUATION Referring Provider: Elias Hernandez [address] [place], [place] [address] Primary Care Provider: Gallo Sanches DO [address] [id number] Dear Elias Hernandez: Thank you for referring Ms. Rojas to our clinic today. As you know she is a 54 year old right-handed female who is seen in consultation for evaluation of Facial twitching since 2022. She is seen alone. 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 She is here for evaluation of left-sided facial twitching. She tells me she has a history of breast cancer 2018 and had double mastectomy followed by hysterectomy 3 years ago. She tells me that she has had twitching of both eyelids that was on and off but has noticed twitching of the left side of the face, including holding of the left cheek and the upper lip that has been happening intermittently. When she made the first appointment, it was happening more often but then it started getting better and she rescheduled. She has cut down on her caffeine. She reports this twitching movement happening about once a week and every time it lasts for less than 5 minutes. She is not sure if she can videotape it for the last Solus. When it does happen it causes her to be bothered by it. Additionally, she says she has noticed some right hand shakiness that comes and goes for the last 1 year. This happens about once a month and the hand is at rest. There is no change in the size of her handwriting. Her sense of smell is gone since she has had severe COVID twice. She has had left knee replacement surgery and feels she may have slowed down a little bit but it is because of the left knee rather than something else. She does not shuffle or fall. She talks in her sleep but does not act out her dreams. He denies constipation. She denies alcohol, smoking or recreational drugs. Father had diabetes and congestive heart failure. Her mother had diabetes. 2 siblings have high blood pressure and 1 sibling has diabetes. She has 3 children who are healthy. Movement Disorders Medications Schedule - as of the start of the visit: Medications Questionnaires Review of Systems ALLERGIES Allergen Reactions Penicillins Hives Other reaction(s): hives all over body Nickel Rash Current Outpatient Medications Medication Sig famotidine (PEPCID) 20 mg tablet Take 1 tablet by mouth two times a day as needed. IBSRELA 50 mg tablet take one tablet by mouth twice daily with meals omeprazole (PRILOSEC) 20 mg capsule TAKE 1 CAPSULE ONCE DAILY rosuvastatin (CRESTOR) 5 mg tablet Take 1 tablet by mouth daily at bedtime. venlafaxine ER (EFFEXOR XR) 37.5 mg 24 hr capsule TAKE 1 CAPSULE ONCE DAILY loratadine 10 mg cap Take by mouth. KRILL OIL ORAL Take 800 mg by mouth once daily. GEMTESA 75 mg tablet Take 75 mg by mouth once daily. COMPRESSION SLEEVE as directed. Breast cancer. 20-30 mmHg mecobalamin (B12 ACTIVE ORAL) Take 1 tablet by mouth once daily. CALCIUM CARBONATE/VITAMIN D3 (VITAMIN D-3 ORAL) Take by mouth twice daily. No current facility-administered medications for this visit. Past Medical and Surgical History: has a past medical history of Anemia, unspecified, Breast cancer (HCC) (08/2017), Breast mass (06/2017), Diffuse cystic mastopathy, Helicobacter pylori infection, Hiatal hernia, History of prolapse of bladder, Major depressive disorder, single episode, unspecified (1999), Meniere disease, Panic disorder without agoraphobia, and Use of tamoxifen (Nolvadex) (03/27/2023). has a past surgical history that includes past surgical history of (1994); bx breast w/device 1st lesion ultrasound guid (Right, 06/12/2017); mastectomy, simple, complete (Bilateral, 08/18/2017); colonoscopy flx dx w/collj spec when pfrmd (03/01/2018); past surgical history of (07/2018); laparoscopic salping/oophorectomy (Right, 02/24/2019); salpingo-oophorectomy (Left, 10/19/2020); foot surgery hx (Left, 1981); total abd hysterectomy+blad repr (N/A, 2020); egd (N/A, 11/05/2021); breast reconstruction; hip surgery hx (01/08/2022); revision breast reconstruction (01/2023); colonoscopy (03/16/2023); total knee replacement (Left, 07/24/2023); cystocele repair (01/07/2024); and cystocele repair (01/07/2024). Social History Tobacco Use Smoking status: Never Smokeless tobacco: Never Vaping Use Vaping status: Never Used Jaeger (more content not included)... [facility] BD DXA - AXIAL SKELETONon BD DXA - AXIAL SKELETON * * *Final Report* * * DATE OF EXAM: May 30 2024 8:09AM WRB 0804 - BD DXA - AXIAL SKELETON / PROCEDURE REASON: Age-related osteoporosis without current pathological fracture * * * * Physician Interpretation * * * * EXAMINATION: DXA BONE DENSITOMETRY BD DXA - AXIAL SKELETON, BD DXA TRABECLR BONE SCORE (TBS) PATIENT DEMOGRAPHICS: Age: 54 years, Gender: Female SCANNER INFORMATION: DXA Model: Restalo - [employer] Mobile C [id number] Date Scanned: 05/30/2024 8:09 AM CLINICAL HISTORY: DIAGNOSTIC Age-related osteoporosis without current pathological fracture . RISK FACTORS FOR OSTEOPOROSIS AND ASSOCIATED FRACTURES REPORTED BY THIS PATIENT: Please refer to Bone Health Questionnaire in the EMR CURRENT THERAPY: Please refer to Bone Health Questionnaire in the EMR TECHNICAL LIMITATIONS: No right hip RESULTS: Lumbar spine (L1, L2, L3, L4): 0.811 g/cm2, T-score -2.1, Z-score -1.0 Lumbar spine: 2021: 0.690 g/cm2 Statistically significant increase Left Femoral Neck: 0.640 g/cm2, T-score -1.9, Z-score -0.8 Left Femoral Neck: 2021: 0.602 g/cm2 Statistically significant increase Left Total Hip: 0.800 g/cm2, T-score -1.2, Z-score -0.4 Left Total Hip: 2021: 0.813 g/cm2 No statistically significant change CHANGE IS STATISTICALLY SIGNIFICANT IN THE SPINE OR HIP IF GREATER THAN OR EQUAL TO 0.04 g/cm2 VERTEBRAL FRACTURE ASSESSMENT Not performed. TRABECULAR BONE ASSESSMENT TBS score: 1.272 Bone micro-architecture: Partially degraded (1.231 - 1.310) IMPRESSION: THE LOWEST T-SCORE IS -2.1 IN THE SPINE 1) DIAGNOSIS (based on BMD alone): OSTEOPENIA Caution: Medical conditions other than osteoporosis may cause low bone density, such as osteomalacia or renal osteodystrophy. Clinical correlation is necessary. 2) FRACTURE RISK (Based on TBS adjusted FRAX): 10-year absolute fracture risk: - major osteoporotic fracture = 25 % - hip fracture = 1.7 % - A diagnosis of Osteoporosis, a 10 year probability of hip fracture greater than or equal to 3% or a 10 year probability of any major osteoporosis-related fracture greater than or equal to 20% should be considered for treatment. - DXA scanner generated FRAX calculations may slightly differ from online FRAX calculations due to differences in software versions. - All recommendations and calculations are to be considered as guidelines and should not replace sound clinical judgement - Caution: Fracture risk may be increased independent of BMD in patients with corticosteroid use, age greater than 65 years, or a history of prior fragility fracture. RECOMMENDATIONS: Follow-up in 2 years or as clinically indicated. Patients that are taking corticosteroids, are transplant recipients or have hyperparathyroidism should have annual follow-up. Follow-up scans should always be done on the same machine for accurate comparison. FOR MORE INFORMATION ABOUT DIAGNOSIS AND TREATMENT: [facility] Disease:? www.ccf.org/arthritis/oste o National Osteoporosis Foundation:? www.nof.org International Society of Clinical Densitometry www.iscd.org Cyber Operator: ROD Transcribe Date/Time: Jun 06 2024 11:22A Dictated by : LEDY PECK MD This examination was interpreted and the report reviewed and electronically signed by: LEDY PECK MD on Jun 06 2024 11:25AM EST [id number] -2.1 [facility] BD DXA TRABECLR BONE SCORE ( TBS)on 05-30-2024 BD DXA TRABECLR BONE SCORE (TBS) * * *Final Report* * * DATE OF EXAM: May 30 2024 8:09AM WRB 0801 - BD DXA TRABECLR BONE SCORE (TBS) / PROCEDURE REASON: Age-related osteoporosis without current pathological fracture * * * * Physician Interpretation * * * * EXAMINATION: DXA BONE DENSITOMETRY BD DXA - AXIAL SKELETON, BD DXA TRABECLR BONE SCORE (TBS) PATIENT DEMOGRAPHICS: Age: 54 years, Gender: Female SCANNER INFORMATION: DXA Model: Restalo - [employer] Mobile C [id number] Date Scanned: 05/30/2024 8:09 AM CLINICAL HISTORY: DIAGNOSTIC Age-related osteoporosis without current pathological fracture . RISK FACTORS FOR OSTEOPOROSIS AND ASSOCIATED FRACTURES REPORTED BY THIS PATIENT: Please refer to Bone Health Questionnaire in the EMR CURRENT THERAPY: Please refer to Bone Health Questionnaire in the EMR TECHNICAL LIMITATIONS: No right hip RESULTS: Lumbar spine (L1, L2, L3, L4): 0.811 g/cm2, T-score -2.1, Z-score -1.0 Lumbar spine: 2021: 0.690 g/cm2 Statistically significant increase Left Femoral Neck: 0.640 g/cm2, T-score -1.9, Z-score -0.8 Left Femoral Neck: 2021: 0.602 g/cm2 Statistically significant increase Left Total Hip: 0.800 g/cm2, T-score -1.2, Z-score -0.4 Left Total Hip: 2021: 0.813 g/cm2 No statistically significant change CHANGE IS STATISTICALLY SIGNIFICANT IN THE SPINE OR HIP IF GREATER THAN OR EQUAL TO 0.04 g/cm2 VERTEBRAL FRACTURE ASSESSMENT Not performed. TRABECULAR BONE ASSESSMENT TBS score: 1.272 Bone micro-architecture: Partially degraded (1.231 - 1.310) IMPRESSION: THE LOWEST T-SCORE IS -2.1 IN THE SPINE 1) DIAGNOSIS (based on BMD alone): OSTEOPENIA Caution: Medical conditions other than osteoporosis may cause low bone density, such as osteomalacia or renal osteodystrophy. Clinical correlation is necessary. 2) FRACTURE RISK (Based on TBS adjusted FRAX): 10-year absolute fracture risk: - major osteoporotic fracture = 25 % - hip fracture = 1.7 % - A diagnosis of Osteoporosis, a 10 year probability of hip fracture greater than or equal to 3% or a 10 year probability of any major osteoporosis-related fracture greater than or equal to 20% should be considered for treatment. - DXA scanner generated FRAX calculations may slightly differ from online FRAX calculations due to differences in software versions. - All recommendations and calculations are to be considered as guidelines and should not replace sound clinical judgement - Caution: Fracture risk may be increased independent of BMD in patients with corticosteroid use, age greater than 65 years, or a history of prior fragility fracture. RECOMMENDATIONS: Follow-up in 2 years or as clinically indicated. Patients that are taking corticosteroids, are transplant recipients or have hyperparathyroidism should have annual follow-up. Follow-up scans should always be done on the same machine for accurate comparison. FOR MORE INFORMATION ABOUT DIAGNOSIS AND TREATMENT: [facility]abolic Bone Disease:? www.ccf.org/arthritis/oste o National Osteoporosis Foundation:? www.nof.org International Society of Clinical Densitometry www.iscd.org Cyber Operator: ROD Transcribe Date/Time: Jun 06 2024 11:22A Dictated by : LEDY PECK MD This examination was interpreted and the report reviewed and electronically signed by: LEDY PECK MD on Jun 06 2024 11:25AM EST [id number] -2.1 [facility] Simon 05-10-2024 CNPN Telephone (FAMPWS) -- GREYSON ROJAS ([id number]) 1970 F Date Time Provider Department 05/10/24 BOGNERMAURICIO During your visit today, we recorded the following information about you: Mauricio Ram PA-C 05/10/2024 10:35 AM Signed [facility] message results. All labs look good, Mauricio Ram PA-C Allergies As of Date: 05/10/2024 Noted Allergy Reaction PENICILLINS 01/29/2006 4 - Hives Comments: Other reaction(s): hives all over body NICKEL 07/31/2023 2 - Rash Date Reviewed: 04/29/2024 Reviewed by: Adam Joy, RN - Fully Assessed Prescriptions as of 05/10/2024 - famotidine (PEPCID) 20 mg tablet Take 1 tablet by mouth two times a day as needed. - IBSRELA 50 mg tablet take one tablet by mouth twice daily with meals - triamcinolone (KENALOG) 0.025 % cream PLEASE SEE ATTACHED FOR DETAILED DIRECTIONS - omeprazole (PRILOSEC) 20 mg capsule TAKE 1 CAPSULE ONCE DAILY - rosuvastatin (CRESTOR) 5 mg tablet Take 1 tablet by mouth daily at bedtime. - venlafaxine ER (EFFEXOR XR) 37.5 mg 24 hr capsule TAKE 1 CAPSULE ONCE DAILY - loratadine 10 mg cap Take by mouth. - KRILL OIL ORAL Take 800 mg by mouth once daily. - GEMTESA 75 mg tablet Take 75 mg by mouth once daily. - COMPRESSION SLEEVE as directed. Breast cancer. 20-30 mmHg - mecobalamin (B12 ACTIVE ORAL) Take 1 tablet by mouth once daily. - CALCIUM CARBONATE/VITAMIN D3 (VITAMIN D-3 ORAL) Take by mouth twice daily. Problem List As Of Date 05/10/2024 Noted Resolved ACNE NEC [L70.8] 12/17/2006 FOLLICULITIS///HAIR DISEASES NEC [L67.8, L73.8] 12/17/2006 11/11/2007 PYODERMA NOS [L08.0] 12/17/2006 RASH///NONSPECIF SKIN ERUPT NEC [R21] 12/17/2006 11/11/2007 SUNBURN [L55.9] 01/29/2007 11/11/2007 SEBACEOUS CYST [L72.3] 08/27/2007 11/11/2007 SEBORRHEA [L21.9] 08/27/2007 XEROSIS///SEBACEOUS GLAND DIS NEC [L73.8] 08/27/2007 11/11/2007 PALPITATIONS [R00.2] 11/11/2007 DEPRESS PSYCHOSIS-UNSPEC - 1 episode [F32.9] Anxiety [F41.9] HYPOGLYCEMIA NOS [E16.2] 11/11/2007 SEBACEOUS CYST [L72.3] 12/01/2007 Scar Condition and Fibrosis of Skin [L90.5] 06/27/2009 Dermatofibroma of Left Forearm near Wrist [D23.*06/27/2009 Carcinoma of upper-outer quadrant of right bill*08/04/2017 History of breast cancer [Z85.3] 02/10/2018 New daily persistent headache [G44.52] 10/07/2018 Lump or mass in breast [N63.0] 02/23/2019 Nonallergic rhinitis [J31.0] 03/16/2019 Acute right-sided low back pain with right-side*07/10/2021 Osteoarthritis of spine with radiculopathy, lum*07/10/2021 Pelvic pain in female [R10.2] 10/15/2021 Dyspareunia, psychogenic [F52.6] 10/15/2021 Cystocele with prolapse [N81.4] 10/15/2021 H. pylori infection [A04.8] 11/25/2021 Gastroesophageal reflux disease with esophagiti*11/25/2021 Cough [R05.9] 11/25/2021 Hoarseness [R49.0] 11/25/2021 TOÑA (iron deficiency anemia) [D50.9] 12/16/2021 Acetabular labrum tear, right, subsequent encou*12/16/2021 Patellofemoral arthralgia of left knee [M25.562]12/17/2022 Chronic right-sided thoracic back pain [M54.6, *12/17/2022 Well adult exam [Z00.00] 03/10/2023 Osteoporosis [M81.0] 03/10/2023 Dyslipidemia [E78.5] 03/10/2023 History of mastectomy [Z90.10] 03/11/2023 History of bilateral breast implants [Z98.82] 03/11/2023 Use of tamoxifen (Nolvadex) [Z79.810] 03/27/2023 03/13/2024 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 Author Type: Registered Nurse Type: [id number] Filed: 04/29/2024 08:40 Note Text: The patient received a copy of EGD discharge instructions that contain information for how to contact the physician who performed the procedure and when to seek medical care. [facility] ANES POSTPROC EVALon 024 ANES POSTPROC EVAL HNO ID: [id number] Author: ANNIA LOZA APRN.CRNA Service: ? Author Type: Nurse Section Supervisor Type: Anesthesia Postprocedure Evaluation Filed: 04/29/2024 08:39 Note Text: POST ANESTHESIA EVALUATION NOTE : 1970 Procedure Summary Date: 04/29/24 Room / Location: Ambulatory Surgery Anesthesia Start: 815 Anesthesia Stop: 837 Procedure: EGD DIAGNOSTIC Diagnosis: Gastroesophageal reflux disease, unspecified whether esophagitis present NCGS (non-celiac gluten sensitivity) (Heartburn) Scheduled Providers: Tika Correa MD Responsible Provider: Annia Loza APRN.CRNA Anesthesia Type: MAC ASA Status: 2 Anesthesia Type: MAC Last Vitals Vitals Value Taken Time BP 104/56 04/29/24 0836 Temp 36.3 ?C (97.4 ?F) 04/29/24 0836 Pulse 72 04/29/24 0836 Resp 16 04/29/24 0836 SpO2 95 % 04/29/24 0836 Post Anesthesia Patient Status Patient Evaluation: PACU. PACU/ICU Patient Condition: stable. Anticipated Disposition: phase 2 then home. Neurological Status: sleepy but arousable. Pulmonary Status: breathing comfortably on room air Airway Control: returned to baseline unsupported. Cardiovascular Status: stable. Pain Management: clinically adequate - multimodal analgesia pain management approach Postoperative Hydration: acceptable. Intraoperative Events: no significant anesthesia events Post Operative Nausea/Vomiting Status: no significant post operative nausea or vomiting Recommendation: continue current plan of care. Anesthesia Observations No Documentation SIGNATURE: Annia Loza APRN.CODE ENFORCEMENT INSPECTOR PATIENT NAME: Greyson Rojas DATE: April 29, 2024 TIME: 8:39 AM CSN: [id number] [facility] CNOVon 04-29-2024 CNOV Office Visit (ENDMED ) -- LENNOXGREYSON WADDELL ([id number]) 1970 F Date Time Provider Department 04/29/24 1:30 PM NURSE LYLA [facility] During your visit today, we recorded the following information about you: Adam Joy RN 04/29/2024 2:04 PM Signed The patient is here for an injection of Prolia Dose: 60 mg Route: Subcutaneous Lot# [id number] Expiration date 09/30/26 ND: 46646-682-41 Given without incident. Site: left arm Marzena Cunha NP present in clinic at time of injection. The date due for the next injection is in 6 months, on or after 10/27/24. Last injection: 10/28/23 ZBIGNIEW:10/07/23 NOV: Will need 10/2024 Insurance: Primary= MMOO- No PA Required Labs: 11/26/23 Calcium 9.1, 03/09/23 Vitamin D 54.8 DX: M81.8 CPT: J0897 DXA: 04/28/22 TScore: -3.2 LS Patient education was given by nurse. Patient tolerated Injection well, in NAD and no reactions noted. Medication supplied by [facility]. Adam Joy RN Referring Provider: ESME WISDOM [[id number]] Allergies As of Date: 04/29/2024 Noted Allergy Reaction PENICILLINS 01/29/2006 4 - Hives Comments: Other reaction(s): hives all over body NICKEL 07/31/2023 2 - Rash Date Reviewed: 04/29/2024 Reviewed by: Adam Joy, SHELL - Fully Assessed Reason for Visit: Prolia Injection [Other] Primary Visit Diagnosis:Other osteoporosis without current pathological fracture [M81.8] Prescriptions as of 04/29/2024 - IBSRELA 50 mg tablet take one tablet by mouth twice daily with meals - triamcinolone (KENALOG) 0.025 % cream PLEASE SEE ATTACHED FOR DETAILED DIRECTIONS - omeprazole (PRILOSEC) 20 mg capsule TAKE 1 CAPSULE ONCE DAILY - rosuvastatin (CRESTOR) 5 mg tablet Take 1 tablet by mouth daily at bedtime. - venlafaxine ER (EFFEXOR XR) 37.5 mg 24 hr capsule TAKE 1 CAPSULE ONCE DAILY - loratadine 10 mg cap Take by mouth. - KRILL OIL ORAL Take 800 mg by mouth once daily. - GEMTESA 75 mg tablet Take 75 mg by mouth once daily. - COMPRESSION SLEEVE as directed. Breast cancer. 20-30 mmHg - mecobalamin (B12 ACTIVE ORAL) Take 1 tablet by mouth once daily. - CALCIUM CARBONATE/VITAMIN D3 (VITAMIN D-3 ORAL) Take by mouth twice daily. Facility-Administered Medications as of 04/29/2024 - lidocaine (PF) 10 mg/mL (1 %) 1-2 mg injection (XYLOCAINE) - lactated ringers iv infusion Problem List As Of Date 04/29/2024 Noted Resolved ACNE NEC [L70.8] 12/17/2006 FOLLICULITIS///HAIR DISEASES NEC [L67.8, L73.8] 12/17/2006 11/11/2007 PYODERMA NOS [L08.0] 12/17/2006 RASH///NONSPECIF SKIN ERUPT NEC [R21] 12/17/2006 11/11/2007 SUNBURN [L55.9] 01/29/2007 11/11/2007 SEBACEOUS CYST [L72.3] 08/27/2007 11/11/2007 SEBORRHEA [L21.9] 08/27/2007 XEROSIS///SEBACEOUS GLAND DIS NEC [L73.8] 08/27/2007 11/11/2007 PALPITATIONS [R00.2] 11/11/2007 DEPRESS PSYCHOSIS-UNSPEC - 1 episode [F32.9] Anxiety [F41.9] HYPOGLYCEMIA NOS [E16.2] 11/11/2007 SEBACEOUS CYST [L72.3] 12/01/2007 Scar Condition and Fibrosis of Skin [L90.5] 06/27/2009 Dermatofibroma of Left Forearm near Wrist [D23.*06/27/2009 Carcinoma of upper-outer quadrant of right bill*08/04/2017 History of breast cancer [Z85.3] 02/10/2018 New daily persistent headache [G44.52] 10/07/2018 Lump or mass in breast [N63.0] 02/23/2019 Nonallergic rhinitis [J31.0] 03/16/2019 Acute right-sided low back pain with right-side*07/10/2021 Osteoarthritis of spine with radiculopathy, lum*07/10/2021 Pelvic pain in female [R10.2] 10/15/2021 Dyspareunia, psychogenic [F52.6] 10/15/2021 Cystocele with prolapse [N81.4] 10/15/2021 H. pylori infection [A04.8] 11/25/2021 Gastroesophageal reflux disease with esophagiti*11/25/2021 Cough [R05.9] 11/25/2021 Hoarseness [R49.0] 11/25/2021 TOÑA (iron deficiency anemia) [D50.9] 12/16/2021 Acetabular labrum tear, right, subsequent encou*12/16/2021 Patellofemoral arthralgia of left knee [M25.562]12/17/2022 Chronic right-sided thoracic back pain [M54.6, *12/17/2022 Well adult exam [Z00.00] 03/10/2023 Osteoporosis [M81.0] 03/10/2023 Dyslipidemia [E78.5] 03/10/2023 History of mastectomy [Z90.10] 03/11/2023 History of bilateral breast implants [Z98.82] 03/11/2023 Use of tamoxifen (Nolvadex) [Z79.810] 03/27/2023 03/13/2024 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 Site: left (more content not included)... [facility] EGD Study observation Kevenat reinier 04-29-2024 [facility] Patient Name: Greyson Rojas Procedure Date: 04/29/2024 8:11 AM Date of : 1970 Admit Type: Outpatient Age: 54 Room: [place] [address] Gender: Female Note Status: Finalized Attending MD: Tika Correa MD, [id number] Procedure: Upper GI endoscopy Indications: Heartburn, Suspected gastro-esophageal reflux disease, Abdominal bloating, Diarrhea Providers: Tika Correa MD Patient Profile: This is a 54 year old female. Refer to note in patient chart for documentation of history and physical. Referring Physician: Ceci Nava (Referring MD) Medicines: Monitored Anesthesia Care Complications: No immediate complications. Requesting Provider: Procedure: Pre-Anesthesia Assessment: - Prior to the procedure, a History and Physical was performed, and patient medications and allergies were reviewed. The patient's tolerance of previous anesthesia was also reviewed. The risks and benefits of the procedure and the sedation options and risks were discussed with the patient. All questions were answered, and informed consent was obtained. Prior Anticoagulants: The patient has taken no anticoagulant or antiplatelet agents. ASA Grade Assessment: II - A patient with mild systemic disease. After reviewing the risks and benefits, the patient was deemed in satisfactory condition to undergo the procedure. After obtaining informed consent, the endoscope was passed under direct vision. Throughout the procedure, the patient's blood pressure, pulse, and oxygen saturations were monitored continuously. The Endoscope was introduced through the mouth, and advanced to the second part of duodenum. I was present and participated during the entire procedure, including non-phillips portions, and during the administration and monitoring of Moderate Sedation. The upper GI endoscopy was accomplished without difficulty. The patient tolerated the procedure well. Moderate Sedation: MAC anesthesia was administered by the anesthesia team. Findings: The Z-line was found 37 cm from the incisors. The esophagus was normal. No evidence of esophagitis. The stomach was normal. The examined duodenum was normal. Biopsies for histology were taken with a cold forceps for evaluation of celiac disease. Verification of patient identification for the specimen was done. Estimated blood loss was minimal. Impression: - Z-line, 37 cm from the incisors. - Normal esophagus. - Normal stomach. - Normal examined duodenum. Biopsied. Recommendation: - Patient has a contact number available for emergencies. The signs and symptoms of potential delayed complications were discussed with the patient. Return to normal activities tomorrow. Written discharge instructions were provided to the patient. - Resume previous diet. - Continue present medications. No acid damage to esophagus. - Await pathology results. Procedure Code(s): --- Professional --- 65649, Esophagogastroduodenoscopy , flexible, transoral; with biopsy, single or multiple CPT copyright 2020 [employer]. All rights reserved. The codes documented in this report are preliminary and upon seal extrusion operator review may be revised to meet current compliance requirements. Attending Participation: I personally performed the entire procedure. Scope In: 8:20:25 AM Scope Out: 8:28:12 AM MD Tika Nathan MD 04/29/2024 8:33:20 AM This report has been signed electronically by Tika Correa MD Number of Addenda: 0 Note Initiated On: 04/29/2024 8:11 AM Estimated Blood Loss: Estimated blood loss was minimal. PROVATION [facility] Radiology Study observation (narrative) [facility] HISTORY PHYSICALon HISTORY PHYSICAL HNO ID: [id number] Author: TIKA CORREA MD Service: Gastroenterology Author Type: Physician Type: H&P Filed: 04/29/2024 08:17 Note Text: Indication for procedure: heartburn, GERD, celiac genetics, bloating PROCEDURE(S) SCHEDULED FOR: Esophagogastroduodenoscopy (EGD) with or without biopsies and with or without removal of polyps or lesions, dilation (any means), treatment of bleeding (any means), based on clinical findings. Patient Summary: 54 yo F history of breast ca, GERD, positive celiac genetics with symptoms eating gluten Blood Thinners: none Medication Allergies Pertinent to Procedural Sedation: ALLERGIES Allergen Reactions Penicillins Hives Other reaction(s): hives all over body Nickel Rash All medications and allergies reviewed: Yes BASELINE BEHAVIOR: Calm BASELINE ORIENTATION: A AND O Skin Assessment: Warm dry mucus membranes pink Airway/Respiratory Assessment: Airway: visualization of the uvula- Yes Mouth: opening greater than 2 fingerbreadths- Yes Neck: full range of motion- Yes Breath sounds clear/equal- Yes Cardiac Assessment: Regular rate and rhythm without murmur Abdominal Assessment: Abdomen soft, non-tender, non-distended. Sedation Plan: MAC Additional Comments: Duodenal biopsies for celiac disease Tika Correa MD [facility] SURGICAL PATHOLOGYon 024 CASE REPORT [facility] Comment on above: Order Comment: Speci men Type: TISSUE SPECIMENOrdering Facility: [facility] Address: [address] [place] [address] Result Comment: Surg [facility] Pathology Report Case: [id number] Authorizing Provider: Tika Correa, Collected: 04/29/2024 08:24 AM Ordering Location: Ambulatory Surgery Received: 04/29/2024 08:30 PM Pathologist: Aarti Oneil MD Specimens: A) - Small Bowel, Duodenum, Biopsy, distal, r/o celiac B) - Small Bowel, Duodenum, Biopsy, bulb, r/o celiac Performed By: #### S ####[facility] LABCLIA [id number] [address] STATES OF [facility] FINAL DIAGNOSIS [facility] Comment on above: Order Comment: Speci men Type: TISSUE SPECIMENOrdering Facility: [facility] Address: [address] [place] [address] Result Comment: AFabien D uodenum, biopsy: - Duodenal mucosa with no significant pathologic change. B. Duodenum, bulb, biopsy: - Duodenal mucosa with no significant pathologic change. Performed By: #### S ####[facility] LABCLIA [id number] [address] [place] FINAL PERFORMING LAB Normal [facility] Comment on above: Order Comment: Speci men Type: TISSUE SPECIMENOrdering Facility: [facility] Address: [address] [place] [address] Result Comment: Diag nostic interpretation performed at [place] [address] CLIA# [id number] Sr Account Executive: Senthil Cazares M.D. Performed By: #### S ####[facility] LABCLIA [id number] [address] [place] GROSS DESCRIPTION Normal [facility] Comment on above: Order Comment: Speci men Type: TISSUE SPECIMENOrdering Facility: [facility] Address: [address] [place] [address] Result Comment: A. S mall Bowel, Duodenum, Biopsy Received in formalin are multiple pieces of barney, soft tissue aggregating to 0.9 x 0.3 x 0.2 cm. Totally submitted in one cassette. B. Small Bowel, Duodenum, Biopsy Received in formalin are two pieces of barney, soft tissue aggregating to 0.7 x 0.2 x 0.2 cm. Totally submitted in one cassette. Gross examination performed at [place] [address] [facility], [place] [address] JT 04/30/2024 12:32 AM Performed By: #### S ####[facility] LABCLRADHA [id number] [address] [id number] [address] [place] Upper GI endoscopyon 04-29-2 024 Upper GI endoscopy [facility] Patient Name: Greyson Rojas Procedure Date: 04/29/2024 8:11 AM Date of : 1970 Admit Type: Outpatient Age: 54 Room: [place] [address] Gender: Female Note Status: Finalized Attending MD: Tika Correa MD, [id number] Procedure: Upper GI endoscopy Indications: Heartburn, Suspected gastro-esophageal reflux disease, Abdominal bloating, Diarrhea Providers: Tika Correa MD Patient Profile: This is a 54 year old female. Refer to note in patient chart for documentation of history and physical. Referring Physician: Ceci Nava (Referring MD) Medicines: Monitored Anesthesia Care Complications: No immediate complications. Requesting Provider: Procedure: Pre-Anesthesia Assessment: - Prior to the procedure, a History and Physical was performed, and patient medications and allergies were reviewed. The patient's tolerance of previous anesthesia was also reviewed. The risks and benefits of the procedure and the sedation options and risks were discussed with the patient. All questions were answered, and informed consent was obtained. Prior Anticoagulants: The patient has taken no anticoagulant or antiplatelet agents. ASA Grade Assessment: II - A patient with mild systemic disease. After reviewing the risks and benefits, the patient was deemed in satisfactory condition to undergo the procedure. After obtaining informed consent, the endoscope was passed under direct vision. Throughout the procedure, the patient's blood pressure, pulse, and oxygen saturations were monitored continuously. The Endoscope was introduced through the mouth, and advanced to the second part of duodenum. I was present and participated during the entire procedure, including non-phillips portions, and during the administration and monitoring of Moderate Sedation. The upper GI endoscopy was accomplished without difficulty. The patient tolerated the procedure well. Moderate Sedation: MAC anesthesia was administered by the anesthesia team. Findings: The Z-line was found 37 cm from the incisors. The esophagus was normal. No evidence of esophagitis. The stomach was normal. The examined duodenum was normal. Biopsies for histology were taken with a cold forceps for evaluation of celiac disease. Verification of patient identification for the specimen was done. Estimated blood loss was minimal. Impression: - Z-line, 37 cm from the incisors. - Normal esophagus. - Normal stomach. - Normal examined duodenum. Biopsied. Recommendation: - Patient has a contact number available for emergencies. The signs and symptoms of potential delayed complications were discussed with the patient. Return to normal activities tomorrow. Written discharge instructions were provided to the patient. - Resume previous diet. - Continue present medications. No acid damage to esophagus. - Await pathology results. Procedure Code(s): --- Professional --- 93197, Esophagogastroduodenoscopy , flexible, transoral; with biopsy, single or multiple CPT copyright 2020 [employer]. All rights reserved. The codes documented in this report are preliminary and upon seal extrusion operator review may be revised to meet current compliance requirements. Attending Participation: I personally performed the entire procedure. Scope In: 8:20:25 AM Scope Out: 8:28:12 AM MD Tika Nathan MD 04/29/2024 8:33:20 AM This report has been signed electronically by Tika Correa MD Number of Addenda: 0 Note Initiated On: 04/29/2024 8:11 AM Estimated Blood Loss: Estimated blood loss was minimal. [facility]YAN Tele[facility] (ENDMED) -- GREYSON ROJAS ([id number]) 1970 F Date Time Provider Department 04/22/24 ESME WISDOM During your visit today, we recorded the following information about you: Adam Joy RN 04/22/2024 10:37 AM Signed Patient is scheduled for a Prolia Injection on 04/29/24 at 1:[address] CAM order accordingly. Thank you. Esme Wisdom MD 04/25/2024 7:11 AM Signed Order placed/ Thanks HH Allergies As of Date: 04/22/2024 Noted Allergy Reaction PENICILLINS 01/29/2006 4 - Hives Comments: Other reaction(s): hives all over body NICKEL 07/31/2023 2 - Rash Date Reviewed: 03/16/2024 Reviewed by: Smitha Hadley LPN - Fully Assessed Reason for Visit: CAM Order [Other] Order(s):denosumab 60 mg injection (PROLIA)Disp: Rfl: Prescriptions as of 04/25/2024 - IBSRELA 50 mg tablet take one tablet by mouth twice daily with meals - triamcinolone (KENALOG) 0.025 % cream PLEASE SEE ATTACHED FOR DETAILED DIRECTIONS - omeprazole (PRILOSEC) 20 mg capsule TAKE 1 CAPSULE ONCE DAILY - rosuvastatin (CRESTOR) 5 mg tablet Take 1 tablet by mouth daily at bedtime. - venlafaxine ER (EFFEXOR XR) 37.5 mg 24 hr capsule TAKE 1 CAPSULE ONCE DAILY - loratadine 10 mg cap Take by mouth. - KRILL OIL ORAL Take 800 mg by mouth once daily. - GEMTESA 75 mg tablet Take 75 mg by mouth once daily. - COMPRESSION SLEEVE as directed. Breast cancer. 20-30 mmHg - mecobalamin (B12 ACTIVE ORAL) Take 1 tablet by mouth once daily. - CALCIUM CARBONATE/VITAMIN D3 (VITAMIN D-3 ORAL) Take by mouth twice daily. Facility-Administered Medications as of 04/25/2024 - denosumab 60 mg injection (PROLIA) Problem List As Of Date 04/22/2024 Noted Resolved ACNE NEC [L70.8] 12/17/2006 FOLLICULITIS///HAIR DISEASES NEC [L67.8, L73.8] 12/17/2006 11/11/2007 PYODERMA NOS [L08.0] 12/17/2006 RASH///NONSPECIF SKIN ERUPT NEC [R21] 12/17/2006 11/11/2007 SUNBURN [L55.9] 01/29/2007 11/11/2007 SEBACEOUS CYST [L72.3] 08/27/2007 11/11/2007 SEBORRHEA [L21.9] 08/27/2007 XEROSIS///SEBACEOUS GLAND DIS NEC [L73.8] 08/27/2007 11/11/2007 PALPITATIONS [R00.2] 11/11/2007 DEPRESS PSYCHOSIS-UNSPEC - 1 episode [F32.9] Anxiety [F41.9] HYPOGLYCEMIA NOS [E16.2] 11/11/2007 SEBACEOUS CYST [L72.3] 12/01/2007 Scar Condition and Fibrosis of Skin [L90.5] 06/27/2009 Dermatofibroma of Left Forearm near Wrist [D23.*06/27/2009 Carcinoma of upper-outer quadrant of right bill*08/04/2017 History of breast cancer [Z85.3] 02/10/2018 New daily persistent headache [G44.52] 10/07/2018 Lump or mass in breast [N63.0] 02/23/2019 Nonallergic rhinitis [J31.0] 03/16/2019 Acute right-sided low back pain with right-side*07/10/2021 Osteoarthritis of spine with radiculopathy, lum*07/10/2021 Pelvic pain in female [R10.2] 10/15/2021 Dyspareunia, psychogenic [F52.6] 10/15/2021 Cystocele with prolapse [N81.4] 10/15/2021 H. pylori infection [A04.8] 11/25/2021 Gastroesophageal reflux disease with esophagiti*11/25/2021 Cough [R05.9] 11/25/2021 Hoarseness [R49.0] 11/25/2021 TOÑA (iron deficiency anemia) [D50.9] 12/16/2021 Acetabular labrum tear, right, subsequent encou*12/16/2021 Patellofemoral arthralgia of left knee [M25.562]12/17/2022 Chronic right-sided thoracic back pain [M54.6, *12/17/2022 Well adult exam [Z00.00] 03/10/2023 Osteoporosis [M81.0] 03/10/2023 Dyslipidemia [E78.5] 03/10/2023 History of mastectomy [Z90.10] 03/11/2023 History of bilateral breast implants [Z98.82] 03/11/2023 Use of tamoxifen (Nolvadex) [Z79.810] 03/27/2023 03/13/2024 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] 04/23/2023 Facial twitching [G51.4] 03/16/2024 It band syndrome, 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] 03/16/2024 Gastroesophageal reflux disease without esophag*03/16/2024 Persistent dry cough [R05.3] 03/16/2024 Vitamin D deficiency [E55.9] 03/16/2024 Hyperlipidemia, mixed [E78.2] 03/16/2024 Fatigue [R53.83] 03/16/2024 Anemia [D64.9] 03/16/2024 Prescriptions ordered this encounter Disp Refills Start End DENOSUMAB 60 MG/ML SUBCUTANEOUS SYRI* 04/25/2024 05/25/2024 Route: SUBCUTANEOUS Medications Discontinued During This Encounter Prescriptions - denosumab (PROLIA SUBCUTANEOUS) (Discontinued) Encounter Status:Closed by ESME WISDOM on 04/25/24 Normal [facility] 25(OH)D3 SerPl-pattyon 2023 25-hydroxyvitamin D3 [Mass/Vol] 51.2 ng/mL Normal 31.0-80.0 [facility] Comment on above: Order Comment: Speci men Type: BLOOD SPECIMENOrdering Facility: [facility] Address: [address] [place] [address] Result Comment: Clas sification of 25 [place] Vitamin D status: Deficiency/Insufficiency: < or = 30 ng/ml. Sufficiency/Optimal Levels: 31-80 ng/mL Toxicity: > 100 ng/mL. Test performed by chemiluminescent immunoassay. Performed By: #### 1 989-3 ####[facility] LABCLIA [id number] [place] [address] [place] CBC W Auto Differential pane l (Bld)on 04-18-2024 Basophils (Bld) [#/Vol] 0.04 10*3/uL Normal <0.11 [facility] Comment on above: Order Comment: Speci men Type: BLOOD SPECIMENOrdering Facility: [facility] Address: [address] [place] [address] Performed By: #### 5 7021-8 ####[facility] LABCLIA [id number] [place] [address] [place] Basophils/100 WBC (Bld) 0.8 % Normal [facility] Comment on above: Order Comment: Speci men Type: BLOOD SPECIMENOrdering Facility: [facility] Address: [address] [place] [address] Performed By: #### 5 7021-8 ####[facility] LABCLIA [id number] [place] [address] [place] Differential cell count method Nom (Bld) Auto Normal [facility] Comment on above: Order Comment: Speci men Type: BLOOD SPECIMENOrdering Facility: [facility] Address: [address] [place] [address] Performed By: #### 5 7021-8 ####[facility] LABCLIA [id number] [place] [address] [place] Eosinophils (Bld) [#/Vol] 0.08 10*3/uL Normal <0.46 [facility] Comment on above: Order Comment: Speci men Type: BLOOD SPECIMENOrdering Facility: [facility] Address: [address] [place] [address] Performed By: #### 5 7021-8 ####[facility] LABCLIA [id number] [place] [address] [place] Eosinophils/100 WBC (Bld) 1.6 % Normal [facility] Comment on above: Order Comment: Speci men Type: BLOOD SPECIMENOrdering Facility: [facility] Address: [address] [place] [address] Performed By: #### 5 7021-8 ####[facility] LABCLIA [id number] [place] [address] [place] Erythrocyte distribution width (RBC) [Ratio] 14.8 % Normal 11.5-15.0 [facility] Comment on above: Order Comment: Speci men Type: BLOOD SPECIMENOrdering Facility: [facility] Address: [address] [place] [address] Performed By: #### 5 7021-8 ####[facility] LABCLIA [id number] [place] [address] [place] Hematocrit (Bld) [Volume fraction] 38.9 % Normal 36.0-46.0 [facility] Comment on above: Order Comment: Speci men Type: BLOOD SPECIMENOrdering Facility: [facility] Address: [address] [place] [address] Performed By: #### 5 7021-8 ####[facility] LABCLIA [id number] [place] [address] [place] Hemoglobin (Bld) [Mass/Vol] 12.2 g/dL Normal 11.5-15.5 [facility] Comment on above: Order Comment: Speci men Type: BLOOD SPECIMENOrdering Facility: [facility] Address: [address] [place] [address] Performed By: #### 5 7021-8 ####[facility] LABIA [id number] [place] [address] [place] Immature granulocytes (Bld) [#/Vol] 10*3/uL Normal <0.10 [facility] Comment on above: Order Comment: Speci men Type: BLOOD SPECIMENOrdering Facility: [facility] Address: [address] [place] [address] Performed By: #### 5 7021-8 ####[facility] LABCLIA [id number] [place] [address] [place] Immature granulocytes/100 WBC (Bld) 0.2 % Normal [facility] Comment on above: Order Comment: Speci men Type: BLOOD SPECIMENOrdering Facility: [facility] Address: [address] [place] [address] Performed By: #### 5 7021-8 ####[facility] LABCLIA [id number] [place] [address] [place] Lymphocytes (Bld) [#/Vol] 2.10 10*3/uL Normal 1.00-4.00 [facility] Comment on above: Order Comment: Speci men Type: BLOOD SPECIMENOrdering Facility: [facility] Address: [address] [place] [address] Performed By: #### 5 7021-8 ####[facility] LABCLIA [id number] [place] [address] [place] Lymphocytes/100 WBC (Bld) 41.8 % Normal [facility] Comment on above: Order Comment: Speci men Type: BLOOD SPECIMENOrdering Facility: [facility] Address: [address] [place] [address] Performed By: #### 5 7021-8 ####[facility] LABCLIA [id number] [place] [address] [place] MCH (RBC) [Entitic mass] 27.5 pg Normal 26.0-34.0 [facility] Comment on above: Order Comment: Speci men Type: BLOOD SPECIMENOrdering Facility: [facility] Address: [address] [place] [address] Performed By: #### 5 7021-8 ####[facility] LABCLIA [id number] [place] [address] [place] MCHC (RBC) [Mass/Vol] 31.4 g/dL Normal 30.5-36.0 [facility] Comment on above: Order Comment: Speci men Type: BLOOD SPECIMENOrdering Facility: [facility] Address: [address] [place] [address] Performed By: #### 5 7021-8 ####[facility] LABCLIA [id number] [place] [address] [place] MCV (RBC) [Entitic vol] 87.8 fL Normal 80.0-100.0 [facility] Comment on above: Order Comment: Speci men Type: BLOOD SPECIMENOrdering Facility: [facility] Address: [address] [place] [address] Performed By: #### 5 7021-8 ####[facility] LABCLIA [id number] [place] [address] [place] Monocytes (Bld) [#/Vol] 0.50 10*3/uL Normal <0.87 [facility] Comment on above: Order Comment: Speci men Type: BLOOD SPECIMENOrdering Facility: [facility] Address: [address] [place] [address] Performed By: #### 5 7021-8 ####[facility] LABCLIA [id number] [place] [address] [place] Monocytes/100 WBC (Bld) 10.0 % Normal [facility] Comment on above: Order Comment: Speci men Type: BLOOD SPECIMENOrdering Facility: [facility] Address: [address] [place] [address] Performed By: #### 5 7021-8 ####[facility] LABCLIA [id number] [place] [address] [place] Neutrophils (Bld) [#/Vol] 2.29 10*3/uL Normal 1.45-7.50 [facility] Comment on above: Order Comment: Speci men Type: BLOOD SPECIMENOrdering Facility: [facility] Address: [address] [place] [address] Performed By: #### 5 7021-8 ####[facility] LABCLIA [id number] [place] [address] [place] Neutrophils/100 WBC (Bld) 45.6 % Normal [facility] Comment on above: Order Comment: Speci men Type: BLOOD SPECIMENOrdering Facility: [facility] Address: [address] [place] [address] Performed By: #### 5 7021-8 ####[facility] LABCLIA [id number] [place] [address] [place] Nucleated RBC (Bld) [#/Vol] 10*3/uL Normal <0.01 [facility] Comment on above: Order Comment: Speci men Type: BLOOD SPECIMENOrdering Facility: [facility] Address: [address] [place] [address] Performed By: #### 5 7021-8 ####[facility] LABCLIA [id number] [place] [address] [place] Nucleated RBC/100 WBC (Bld) [Ratio] 0.0 /100 WBC Normal [facility] Comment on above: Order Comment: Speci men Type: BLOOD SPECIMENOrdering Facility: [facility] Address: [address] [place] [address] Performed By: #### 5 7021-8 ####[facility] LABIA [id number] [place] [address] [place] Platelet mean volume (Bld) [Entitic vol] 11.3 fL Normal 9.0-12.7 [facility] Comment on above: Order Comment: Speci men Type: BLOOD SPECIMENOrdering Facility: [facility] Address: [address] [place] [address] Performed By: #### 5 7021-8 ####[facility] LABCLIA [id number] [place] [address] [place] Platelets (Bld) [#/Vol] 221 10*3/uL Normal 150-400 [facility] Comment on above: Order Comment: Speci men Type: BLOOD SPECIMENOrdering Facility: [facility] Address: [address] [place] [address] Performed By: #### 5 7021-8 ####[facility] LABCLIA [id number] [place] [address] [place] RBC (Bld) [#/Vol] 4.43 10*6/uL Normal 3.90-5.20 [facility] Comment on above: Order Comment: Speci men Type: BLOOD SPECIMENOrdering Facility: [facility] Address: [address] [place] [address] Performed By: #### 5 7021-8 ####[facility] LABIA [id number] [place] [address] [place] WBC (Bld) [#/Vol] 5.02 10*3/uL Normal 3.70-11.00 [facility] Comment on above: Order Comment: Speci men Type: BLOOD SPECIMENOrdering Facility: [facility] Address: [address] [place] [address] Performed By: #### 5 7021-8 ####[facility] LABIA [id number] [address] [place] CNPNon 04-18-2024 CNPN Telephone (4CQ) -- GREYSON ROJAS ([id number]) 1970 F Date Time Provider Department 04/18/24 ESME WISDOM 4CQ During your visit today, we recorded the following information about you: Janey Cuellar 04/18/2024 11:42 AM Signed Patients bone density order expires May 06milena does not have any availabilities till after this date. Please place new order. Thank you Esme Wisdom MD 04/19/2024 8:31 AM Signed Done. Thank you HH Allergies As of Date: 04/18/2024 Noted Allergy Reaction PENICILLINS 01/29/2006 4 - Hives Comments: Other reaction(s): hives all over body NICKEL 07/31/2023 2 - Rash Date Reviewed: 03/16/2024 Reviewed by: Smitha Hadley LPN - Fully Assessed Primary Visit Diagnosis:Age-related osteoporosis without current pathological fracture [M81.0] Order(s):DXA-AXIAL SKELETON [8128129] Order #: [id number] FUTURE BD DXA TRABECULAR BONE SCORE (TBS) [2950440] Order #: [id number] FUTURE Prescriptions as of 04/19/2024 - IBSRELA 50 mg tablet take one tablet by mouth twice daily with meals - triamcinolone (KENALOG) 0.025 % cream PLEASE SEE ATTACHED FOR DETAILED DIRECTIONS - omeprazole (PRILOSEC) 20 mg capsule TAKE 1 CAPSULE ONCE DAILY - denosumab (PROLIA SUBCUTANEOUS) - rosuvastatin (CRESTOR) 5 mg tablet Take 1 tablet by mouth daily at bedtime. - venlafaxine ER (EFFEXOR XR) 37.5 mg 24 hr capsule TAKE 1 CAPSULE ONCE DAILY - loratadine 10 mg cap Take by mouth. - KRILL OIL ORAL Take 800 mg by mouth once daily. - GEMTESA 75 mg tablet Take 75 mg by mouth once daily. - COMPRESSION SLEEVE as directed. Breast cancer. 20-30 mmHg - mecobalamin (B12 ACTIVE ORAL) Take 1 tablet by mouth once daily. - CALCIUM CARBONATE/VITAMIN D3 (VITAMIN D-3 ORAL) Take by mouth twice daily. Facility-Administered Medications as of 04/19/2024 - lidocaine (PF) 10 mg/mL (1 %) 1-2 mg injection (XYLOCAINE) - lactated ringers iv infusion Problem List As Of Date 04/18/2024 Noted Resolved ACNE NEC [L70.8] 12/17/2006 FOLLICULITIS///HAIR DISEASES NEC [L67.8, L73.8] 12/17/2006 11/11/2007 PYODERMA NOS [L08.0] 12/17/2006 RASH///NONSPECIF SKIN ERUPT NEC [R21] 12/17/2006 11/11/2007 SUNBURN [L55.9] 01/29/2007 11/11/2007 SEBACEOUS CYST [L72.3] 08/27/2007 11/11/2007 SEBORRHEA [L21.9] 08/27/2007 XEROSIS///SEBACEOUS GLAND DIS NEC [L73.8] 08/27/2007 11/11/2007 PALPITATIONS [R00.2] 11/11/2007 DEPRESS PSYCHOSIS-UNSPEC - 1 episode [F32.9] Anxiety [F41.9] HYPOGLYCEMIA NOS [E16.2] 11/11/2007 SEBACEOUS CYST [L72.3] 12/01/2007 Scar Condition and Fibrosis of Skin [L90.5] 06/27/2009 Dermatofibroma of Left Forearm near Wrist [D23.*06/27/2009 Carcinoma of upper-outer quadrant of right bill*08/04/2017 History of breast cancer [Z85.3] 02/10/2018 New daily persistent headache [G44.52] 10/07/2018 Lump or mass in breast [N63.0] 02/23/2019 Nonallergic rhinitis [J31.0] 03/16/2019 Acute right-sided low back pain with right-side*07/10/2021 Osteoarthritis of spine with radiculopathy, lum*07/10/2021 Pelvic pain in female [R10.2] 10/15/2021 Dyspareunia, psychogenic [F52.6] 10/15/2021 Cystocele with prolapse [N81.4] 10/15/2021 H. pylori infection [A04.8] 11/25/2021 Gastroesophageal reflux disease with esophagiti*11/25/2021 Cough [R05.9] 11/25/2021 Hoarseness [R49.0] 11/25/2021 TOÑA (iron deficiency anemia) [D50.9] 12/16/2021 Acetabular labrum tear, right, subsequent encou*12/16/2021 Patellofemoral arthralgia of left knee [M25.562]12/17/2022 Chronic right-sided thoracic back pain [M54.6, *12/17/2022 Well adult exam [Z00.00] 03/10/2023 Osteoporosis [M81.0] 03/10/2023 Dyslipidemia [E78.5] 03/10/2023 History of mastectomy [Z90.10] 03/11/2023 History of bilateral breast implants [Z98.82] 03/11/2023 Use of tamoxifen (Nolvadex) [Z79.810] 03/27/2023 03/13/2024 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] 04/23/2023 Facial twitching [G51.4] 03/16/2024 It band syndrome, 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] 03/16/2024 Gastroesophageal reflux disease without esophag*03/16/2024 Persistent dry cough [R05.3] 03/16/2024 Vitamin D deficiency [E55.9] 03/16/2024 Hyperlipidemia, mixed [E78.2] 03/16/2024 Fatigue [R53.83] 03/16/2024 Anemia [D64.9] 03/16/2024 Encounter Status:Closed by ESME WISDOM on 04/19/24 Normal [facility] Ferritin SerPl-ncon 2023 Ferritin [Mass/Vol] 63.2 ng/mL Normal 14.7-205.1 [facility] Comment on above: Order Comment: Speci men Type: BLOOD SPECIMENOrdering Facility: [facility] Address: [address] [place] [address] Performed By: #### 5 0190-8, 2-9, 6-4 ####[facility] [id number] [place] [address] [place] Iron and Iron binding capaci panelon 04-18-2024 Iron [Mass/Vol] 62 ug/dL Normal 41-186 [facility] Comment on above: Order Comment: Speci men Type: BLOOD SPECIMENOrdering Facility: [facility] Address: [address] [place] [address] Performed By: #### 5 0190-8, 2-9, 2276-4 ####[facility] LABIA [id number] [place] [address] [place] Iron binding capacity [Mass/Vol] 261 ug/dL Normal 232-386 [facility] Comment on above: Order Comment: Speci men Type: BLOOD SPECIMENOrdering Facility: [facility] Address: [address] [place] [address] Performed By: #### 5 0190-8, 2131-9, 6-4 ####[facility] LABIA [id number] [address] [address] [place] Iron/TIBC [Molar ratio] 23.8 % Normal 15.0-57.0 [facility] Comment on above: Order Comment: Speci men Type: BLOOD SPECIMENOrdering Facility: [facility] Address: [address] [place], [place] [id number] Performed By: #### 5 0190-8, 2131-9, 6-4 ####[facility] [id number] [place] [id number] [place] Vit B12 [facility] 16-2 024 Cobalamin (Vitamin B12) [Mass/Vol] 914 pg/mL Normal 232-1245 [facility] Comment on above: Order Comment: Speci men Type: BLOOD SPECIMENOrdering Facility: [facility] Address: [address] [place], [place] [address] Performed By: #### 5 0190-8, 2131-9, 2275-4 ####[facility] [id number] [place] [id number] [place] ANES PRE-OPon 04-14-2024 ANES PRE-OP HNO ID: [id number] Author: ANNIA LOZA APRN.CODE ENFORCEMENT INSPECTOR Service: ? Author Type: Nurse Section Supervisor Type: Anesthesia Preprocedure Evaluation Filed: 04/29/2024 08:15 Note Text: ANESTHESIOLOGY DAY OF SURGERY NOTE : 1970 Procedure Information Date/Time: 04/29/24 0800 Procedure: EGD DIAGNOSTIC Location: Ambulatory Surgery Estimated body mass index is 24.1 kg/m? as calculated from the following: Height as of 03/16/24: 160 cm (5' 2.99). Weight as of 04/12/24: 61.7 kg (136 lb). Most recent hematocrit and potassium results: Hematocrit 35.7 03/14/2024 Potassium 4.4 03/14/2024 Relevant Problems GI (+) Gastroesophageal reflux disease with esophagitis without hemorrhage (+) Gastroesophageal reflux disease without esophagitis NEURO-PSYCH (+) History of breast cancer (+) New daily persistent headache I - PHYSICAL EVALUATION AIRWAY Patient intubated: No. Tracheostomy tube not present Mallampati: II. TM distance: >3 FB. Neck ROM: full ROM without neurological symptoms. Mouth opening: adequate. Short neck: no. Thick neck: no Carter present: no Lip Bite Test: I Microretrognathia/Micronag thia/Recessed Chin: No DENTAL Dental findings: teeth intact. Additional exam findings: no II - ANESTHESIA PLAN ASA Score: 2 Anesthetic Plan: MAC The patient is not a current smoker. NPO Status: adequate Beta Nelly Monitoring Plan Monitoring plan: standard ASA. Post Procedure Analgesic Plan Postoperative analgesic plan: parenteral or oral opioids and multimodal analgesia. Informed Consent Anesthetic risks, benefits, alternatives, personnel and consent discussed: yes. Patient / Responsible Libertarian agrees to proceed: yes Patient / Surrogate agrees to blood products: blood products not planned Significant changes in the patient condition since the History and Physical, not otherwise documented in primary service progress note: no. Discussed the possibility of lip / dental damage: yes No vitals data found for the desired time range. Outpatient Medications as of 04/29/2024 Medication Sig - IBSRELA 50 mg tablet take one tablet by mouth twice daily with meals - triamcinolone (KENALOG) 0.025 % cream PLEASE SEE ATTACHED FOR DETAILED DIRECTIONS - omeprazole (PRILOSEC) 20 mg capsule TAKE 1 CAPSULE ONCE DAILY - denosumab (PROLIA SUBCUTANEOUS) - rosuvastatin (CRESTOR) 5 mg tablet Take 1 tablet by mouth daily at bedtime. - venlafaxine ER (EFFEXOR XR) 37.5 mg 24 hr capsule TAKE 1 CAPSULE ONCE DAILY - loratadine 10 mg cap Take by mouth. - KRILL OIL ORAL Take 800 mg by mouth once daily. - GEMTESA 75 mg tablet Take 75 mg by mouth once daily. - COMPRESSION SLEEVE as directed. Breast cancer. 20-30 mmHg - mecobalamin (B12 ACTIVE ORAL) Take 1 tablet by mouth once daily. - CALCIUM CARBONATE/VITAMIN D3 (VITAMIN D-3 ORAL) Take by mouth twice daily. Facility-Administered Medications as of 04/29/2024 Medication Dose Route Frequency - lidocaine (PF) 10 mg/mL (1 %) 1-2 mg injection (XYLOCAINE) 0.1-0.2 mL INTRADERMAL PRN - lactated ringers iv infusion 30 mL/hr INTRAVENOUS CONTINUOUS I have interviewed and examined the patient. I have reviewed the medical record and/or the pre-anesthesia evaluation, pertinent labs, and test results. This contains updated information obtained within 48 hours of Surgery/Procedure. SIGNATURE: Annia Loza APRN.CRNA PATIENT NAME: Greyson Rojas DATE: April 14, 2024 TIME: 3:14 PM CSN: [id number] Normal [facility] CNOVSPon 04-12-2024 CNOVSP Visit (SP) Office ([place]) -- GREYSON ROJAS ([id number]) 1970 F Date Time Provider Department 04/12/24 9:30 AM IZABEL KANG During your visit today, we recorded the following information about you: Temperature Pulse Blood pressure Weight 97.5 degrees 74/minute 100/63 61.7 kg Izabel Kang APRN.CUSTOMER SALES SPECIALIST 04/12/2024 1:27 PM Signed Progress Note Greyson Mcrae Crystal 1970 Encounter date: 04/12/2024 Cancer Staging Carcinoma of upper-outer quadrant of right breast in female, estrogen receptor positive (HCC) Staging form: [facility] Breast, AJCC 8th Edition - Pathologic stage from 08/28/2017: Stage IB (pT2, pN0(sn), cM0, G2, ER: Positive, FL: Positive, HER2: Negative) - Signed by Claire Chaney on 08/28/2017 HPI: Greyson Rojas is a 47 year old pre-menopausal woman with 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 Ms. Rojas reports that she has always had dense breasts and fibrocystic changes. She had a palpable right breast mass that has been present since spring 2016. She had mammogram, ultrasound with 3 biopsies showing ALH, and an MRI. She underwent mammogram at [facility] on 07/15/17 showed an architectural distortion at 10 o'clock posterior depth and ultrasound demonstrated a 1.8 x 2.9 x 1.7 cm irregular mass with an irregular margin in the right breast at 10 o'clock posterior depth 5 cm from the nipple. There is also a 1.8 x 0.6 x 2.3 cm oval lymph node with a circumscribed margin in the right axilla. The cortex is 4 mm, at the upper limit of normal. Biopsy of the lesion on 07/20/17 showed grade II/III ILC, which was ER+ (90%, strong), FL+ (90%, strong), and Her2 0+ (negative) by IHC. Lymph node biopsy was negative for malignancy. Ms. Rojas underwent bilateral mastectomy and SLN biopsy on 08/18/2017. Pathology demonstrated benign breast tissue on the left. She had a 3 cm grade II/III lobular carcinoma with extensive associated lobular neoplasia. 0/2 SLN were positive for disease. No LVI. Mammoprint returned low risk luminal A type. She began tamoxifen 09/2017. She began anastrozole 10/21 after hysterectomy and stopped 03/23 secondary to significant hot flashes and bone aches. Restarted tamoxifen 03/2021. Interval History She presents today for follow up. She is doing well. She did have bladder lift in January that she tolerated well. She also was diagnosed with elevated cholesterol and placed on a statin and then she cut out red meat. She is now on oral iron due to history of TOÑA and slightly low hemoglobin. She is not on Tamoxifen any longer as she had BCI that showed no benefit to more than 5 years so she stopped at 5 years. She feels well. She denies pain other than knee pain occasionally after her TKR in July. She does also have reflux, GERD and was positive for celiac markers. She is trying to avoid gluten. No other new problems or concerns. ACTIVE PROBLEM LIST Other Acne Pyoderma, Unspecified Seborrhea Palpitations DEPRESS PSYCHOSIS-UNSPEC - 1 episode Anxiety Hypoglycemia, Unspecified Sebaceous Cyst Scar Condition and Fibrosis of Skin Dermatofibroma of Left Forearm near Wrist Carcinoma of Upper-Outer Quadrant of Right Breast in Female, Estrogen Receptor Positive (Hcc) History of Breast Cancer New Daily Persistent Headache Lump Or Mass in Breast Nonallergic Rhinitis Acute Right-Sided Low Back Pain With Right-Sided Sciatica Osteoarthritis of Spine With Radiculopathy, Lumbar Region Pelvic Pain in Female Dyspareunia, Psychogenic Cystocele With Prolapse H. Pylori Infection Gastroesophageal Reflux Disease With Esophagitis Without Hemorrhage Cough Hoarseness Toña (Iron Deficiency Anemia) Acetabular Labrum Tear, Right, Subsequent Encounter Patellofemoral Arthralgia of Left Knee Chronic Right-Sided Thoracic Back Pain Well Adult Exam Osteoporosis Dyslipidemia History of Mastectomy History of Bilateral Breast Implants Hemochromatosis Carrier Facial Twitching It Band Syndrome, Left Gastroesophageal Reflux Disease Without Esophagitis Persistent Dry Cough Vitamin D Deficiency Hyperlipidemia, Mixed Fatigue Anemia PAST SURGICAL HISTORY No date: BREAST RECONSTRUCTION Comment: implants removed and replaced 06/12/2017: BX BREAST W/DEVICE 1ST LESION ULTRASOUND GUID; Right Comment: 3 nodules; 5cm, 3cm, 3cm 03/16/2023: COLONOSCOPY 03/01/2018: COLONOSCOPY FLX DX W/COLLJ SPEC WHEN PFRMD Comment: Colonoscopy 01/07/2024: CYSTOCELE REPAIR 01/07/2024: CYSTOCELE REPAIR 11/05/2021: EGD; N/A 1982: FOOT SURGERY HX; Left Comment: Arch reshaping 01/08/2022: HIP SURGERY HX Comment: torn labrum, reshaped femoral head 02/24/2019: LAPAROSCOPIC SALPING/OOPHORECTOMY; Right Comment: Dr. Jasmin Sosa 08/18/2017: MASTECTOMY, SIMPLE, COMPLETE; Bilateral Comment: Dr. Johnson (reconstruction), D (more content not included)... 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 Cranial neuropathy (CN 7), Hemifacial Spasm (accession [id number]), Cranial neuropathy (CN 7), LEFT HEMIFACIAl SPASM. Hemifacial spasm of left side of face . R/o Vascular abutment--HEMIFACIAL SPASM ON LEFT. TECHNIQUE: Whole brain axial DWI and FLAIR. IAC region precontrast axial T1, and postcontrast axial T2 SPACE and fat saturated T1 VIBE as well as whole brain axial T1-weighted images. Intracranial 3D wqng-kr-albftc MRA. 3D maximum intensity projection images were created, reviewed and archived . MQ: MRAB_4 MQ: MRBWOW_2 Contrast: 12 mL Dotarem IV Comparison: 11/19/2018 MRI/MRA RESULT: MRI: Acute Change: No abnormal restricted diffusion to suggest an acute infarct. Hemorrhage: No dedicated GRE or SWI sequences were obtained, however, no signal abnormalities are present on the remaining pulse sequences to suggest acute intracranial hemorrhage. Mass Lesion/ Mass Effect: No evidence of an intracranial mass or extra-axial fluid collection. Resolution of previously seen diffuse mild uniform dural enhancement. . No abnormal parenchymal or leptomeningeal enhancement. No significant mass effect. Chronic Change: The white matter is within normal limits of signal intensity for age. Parenchyma: No significant volume loss for age. The brain parenchyma is otherwise within normal limits of signal intensity and morphology. Ventricles: Ventricular calibers are commensurate with the parenchymal volume and normal in configuration. Skull Base: Hypothalamic and pituitary region are grossly normal. Craniocervical junction is normal. No significant marrow replacement process. Vasculature: Increased signal in the right jugular bulb and partially visualized proximal right internal jugular vein normal appearance on the postcontrast images, compatible with slow flow. Otherwise the major intracranial arterial structures, and dural venous sinuses show typical flow void, suggesting patency by spin echo criteria. Other: The visualized paranasal sinuses and mastoid air cells are clear. The orbits are unremarkable. The extracranial soft tissues are within normal limits. MRA: Anterior Circulation: The partially imaged portions of the distal most extracranial ICAs appear patent. Patent intracranial ICAs. Patent codominant ACAs with poorly visualized anterior communicating artery. Patent appearance of the MCAs bilaterally. Posterior Circulation: Patent codominant intracranial vertebral arteries. The right anterior inferior cerebellar artery courses in close proximity to the cisternal portions of the right 7th and 8th cranial nerve complex without associated mass effect. No vascular abutment of the left seventh and eighth cranial complex. Patent appearance of the basilar artery and proximal superior cerebellar arteries. Patent posterior cerebral arteries with predominant supply bilaterally and small caliber distal P1 segments, and similar mild short segment narrowing versus artifact in the posterior communicating portion of the vessel on the left. No apparent high grade stenosis, occlusion, or aneurysm in the visualized vessels. DIVISION OF RADIOLOGY Provider, Rat[facility] - 02/10/2024 * * *Final Report* * * DATE OF EXAM: Feb 10 2024 9:35AM BRM [id number] - MRI BRAIN WO/W IVCON / PROCEDURE REASON: Hemifacial spasm of left side of face * * * * Physician Interpretation * * * * EXAMINATION: MRI BRAIN WO/W IVCON, MRA BRAIN WO IVCON Clinical history: As provided by the ordering clinician via order question entries: CN VII-VIII (IAC), Other R/o Vascular abutment--HEMIFACIAL SPASM ON LEFT. Cranial neuropathy (CN 7), Hemifacial Spasm (accession [id number]), Cranial neuropathy (CN 7), LEFT HEMIFACIAl SPASM. Hemifacial spasm of left side of face . R/o Vascular abutment--HEMIFACIAL SPASM ON LEFT. TECHNIQUE: Whole brain axial DWI and FLAIR. IAC region precontrast axial T1, and postcontrast axial T2 SPACE and fat saturated T1 VIBE as well as whole brain axial T1-weighted images. Intracranial 3D afwl-ni-unwnzg MRA. 3D maximum intensity projection images were created, reviewed and archived . MQ: MRAB_4 MQ: MRBWOW_2 Contrast: 12 mL Dotarem IV Comparison: 11/19/2018 MRI/MRA RESULT: MRI: Acute Change: No abnormal restricted diffusion to suggest an acute infarct. Hemorrhage: No dedicated GRE or SWI sequences were obtained, however, no signal abnormalities are present on the remaining pulse sequences to suggest acute intracranial hemorrhage. Mass Lesion/ Mass Effect: No evidence of an intracranial mass or extra-axial fluid collection. Resolution of previously seen diffuse mild uniform dural enhancement. . No abnormal parenchymal or leptomeningeal enhancement. No significant mass effect. Chronic Change: The white matter is within normal limits of signal intensity for age. Parenchyma: No significant volume loss for age. The brain parenchyma is otherwise within normal limits of signal intensity and morphology. Ventricles: Ventricular calibers are commensurate with the parenchymal volume and normal in configuration. Skull Base: Hypothalamic and pituitary region are grossly normal. Craniocervical junction is normal. No significant marrow replacement process. Vasculature: Increased signal in the right jugular bulb and partially visualized proximal right internal jugular vein normal appearance on the postcontrast images, compatible with slow flow. Otherwise the major intracranial arterial structures, and dural venous sinuses show typical flow void, suggesting patency by spin echo criteria. Other: The visualized paranasal sinuses and mastoid air cells are clear. The orbits are unremarkable. The extracranial soft tissues are within normal limits. MRA: Anterior Circulation: The partially imaged portions of the distal most extracranial ICAs appear patent. Patent intracranial ICAs. Patent codominant ACAs with poorly visualized anterior communicating artery. Patent appearance of the MCAs bilaterally. Posterior Circulation: Patent codominant intracranial vertebral arteries. The right anterior inferior cerebellar artery courses in close proximity to the cisternal portions of the right 7th and 8th cranial nerve complex without associated mass effect. No vascular abutment of the left seventh and eighth cranial complex. Patent appearance of the basilar artery and proximal superior cerebellar arteries. Patent posterior cerebral arteries with predominant supply bilaterally and small caliber distal P1 segments, and similar mild short segment narrowing versus artifact in the posterior communicating portion of the vessel on the left. No apparent high grade stenosis, occlusion, or aneurysm in the visualized vessels. IMPRESSION IMPRESSION: No acute intracranial abnormality. No signal or structural abnormality to suggest an etiology for left hemifacial spasm. No apparent intracranial proximal arterial occlusion, aneurysm, or high-grade stenosis. No substantial vascular abutment of the left 7th nerve and no associated vascular malformation. Cyber Operator: [facility] Transcribe Date/Time: Feb 10 2024 10:23A Dictated by : JAMAL ATKINS MD This examination was interpreted and the report reviewed and electronically signed by: JAMAL TAKINS MD on Feb 10 2024 10:44AM EST [facility] MRA Head vessels WO contrast on 02-10-2024 * * *Final Report* * * DATE OF EXAM: Feb 10 2024 9:35AM [facility] [id number] - MRA BRAIN WO IVCON / PROCEDURE REASON: Hemifacial spasm of left side of face * * * * Physician Interpretation * * * * EXAMINATION: MRI BRAIN WO/W IVCON, MRA BRAIN WO IVCON Clinical history: As provided by the ordering clinician via order question entries: CN VII-VIII (IAC), Other R/o Vascular abutment--HEMIFACIAL SPASM ON LEFT. Cranial neuropathy (CN 7), Hemifacial Spasm (accession [id number]), Cranial neuropathy (CN 7), LEFT HEMIFACIAl SPASM. Hemifacial spasm of left side of face . R/o Vascular abutment--HEMIFACIAL SPASM ON LEFT. TECHNIQUE: Whole brain axial DWI and FLAIR. IAC region precontrast axial T1, and postcontrast axial T2 SPACE and fat saturated T1 VIBE as well as whole brain axial T1-weighted images. Intracranial 3D gzpt-fo-bttwky MRA. 3D maximum intensity projection images were created, reviewed and archived . MQ: MRAB_4 MQ: MRBWOW_2 Contrast: 12 mL Dotarem IV Comparison: 11/19/2018 MRI/MRA RESULT: MRI: Acute Change: No abnormal restricted diffusion to suggest an acute infarct. Hemorrhage: No dedicated GRE or SWI sequences were obtained, however, no signal abnormalities are present on the remaining pulse sequences to suggest acute intracranial hemorrhage. Mass Lesion/ Mass Effect: No evidence of an intracranial mass or extra-axial fluid collection. Resolution of previously seen diffuse mild uniform dural enhancement. . No abnormal parenchymal or leptomeningeal enhancement. No significant mass effect. Chronic Change: The white matter is within normal limits of signal intensity for age. Parenchyma: No significant volume loss for age. The brain parenchyma is otherwise within normal limits of signal intensity and morphology. Ventricles: Ventricular calibers are commensurate with the parenchymal volume and normal in configuration. Skull Base: Hypothalamic and pituitary region are grossly normal. Craniocervical junction is normal. No significant marrow replacement process. Vasculature: Increased signal in the right jugular bulb and partially visualized proximal right internal jugular vein normal appearance on the postcontrast images, compatible with slow flow. Otherwise the major intracranial arterial structures, and dural venous sinuses show typical flow void, suggesting patency by spin echo criteria. Other: The visualized paranasal sinuses and mastoid air cells are clear. The orbits are unremarkable. The extracranial soft tissues are within normal limits. MRA: Anterior Circulation: The partially imaged portions of the distal most extracranial ICAs appear patent. Patent intracranial ICAs. Patent codominant ACAs with poorly visualized anterior communicating artery. Patent appearance of the MCAs bilaterally. Posterior Circulation: Patent codominant intracranial vertebral arteries. The right anterior inferior cerebellar artery courses in close proximity to the cisternal portions of the right 7th and 8th cranial nerve complex without associated mass effect. No vascular abutment of the left seventh and eighth cranial complex. Patent appearance of the basilar artery and proximal superior cerebellar arteries. Patent posterior cerebral arteries with predominant supply bilaterally and small caliber distal P1 segments, and similar mild short segment narrowing versus artifact in the posterior communicating portion of the vessel on the left. No apparent high grade stenosis, occlusion, or aneurysm in the visualized vessels. DIVISION OF RADIOLOGY Provider, [facility] - 02/10/2024 * * *Final Report* * * DATE OF EXAM: Feb 10 2024 9:35AM BRM [id number] - MRA BRAIN WO IVCON / PROCEDURE REASON: Hemifacial spasm of left side of face * * * * Physician Interpretation * * * * EXAMINATION: MRI BRAIN WO/W IVCON, MRA BRAIN WO IVCON Clinical history: As provided by the ordering clinician via order question entries: CN VII-VIII (IAC), Other R/o Vascular abutment--HEMIFACIAL SPASM ON LEFT. Cranial neuropathy (CN 7), Hemifacial Spasm (accession [id number]), Cranial neuropathy (CN 7), LEFT HEMIFACIAl SPASM. Hemifacial spasm of left side of face . R/o Vascular abutment--HEMIFACIAL SPASM ON LEFT. TECHNIQUE: Whole brain axial DWI and FLAIR. IAC region precontrast axial T1, and postcontrast axial T2 SPACE and fat saturated T1 VIBE as well as whole brain axial T1-weighted images. Intracranial 3D wnbn-wl-vtosop MRA. 3D maximum intensity projection images were created, reviewed and archived . MQ: MRAB_4 MQ: MRBWOW_2 Contrast: 12 mL Dotarem IV Comparison: 11/19/2018 MRI/MRA RESULT: MRI: Acute Change: No abnormal restricted diffusion to suggest an acute infarct. Hemorrhage: No dedicated GRE or SWI sequences were obtained, however, no signal abnormalities are present on the remaining pulse sequences to suggest acute intracranial hemorrhage. Mass Lesion/ Mass Effect: No evidence of an intracranial mass or extra-axial fluid collection. Resolution of previously seen diffuse mild uniform dural enhancement. . No abnormal parenchymal or leptomeningeal enhancement. No significant mass effect. Chronic Change: The white matter is within normal limits of signal intensity for age. Parenchyma: No significant volume loss for age. The brain parenchyma is otherwise within normal limits of signal intensity and morphology. Ventricles: Ventricular calibers are commensurate with the parenchymal volume and normal in configuration. Skull Base: Hypothalamic and pituitary region are grossly normal. Craniocervical junction is normal. No significant marrow replacement process. Vasculature: Increased signal in the right jugular bulb and partially visualized proximal right internal jugular vein normal appearance on the postcontrast images, compatible with slow flow. Otherwise the major intracranial arterial structures, and dural venous sinuses show typical flow void, suggesting patency by spin echo criteria. Other: The visualized paranasal sinuses and mastoid air cells are clear. The orbits are unremarkable. The extracranial soft tissues are within normal limits. MRA: Anterior Circulation: The partially imaged portions of the distal most extracranial ICAs appear patent. Patent intracranial ICAs. Patent codominant ACAs with poorly visualized anterior communicating artery. Patent appearance of the MCAs bilaterally. Posterior Circulation: Patent codominant intracranial vertebral arteries. The right anterior inferior cerebellar artery courses in close proximity to the cisternal portions of the right 7th and 8th cranial nerve complex without associated mass effect. No vascular abutment of the left seventh and eighth cranial complex. Patent appearance of the basilar artery and proximal superior cerebellar arteries. Patent posterior cerebral arteries with predominant supply bilaterally and small caliber distal P1 segments, and similar mild short segment narrowing versus artifact in the posterior communicating portion of the vessel on the left. No apparent high grade stenosis, occlusion, or aneurysm in the visualized vessels. IMPRESSION IMPRESSION: No acute intracranial abnormality. No signal or structural abnormality to suggest an etiology for left hemifacial spasm. No apparent intracranial proximal arterial occlusion, aneurysm, or high-grade stenosis. No substantial vascular abutment of the left 7th nerve and no associated vascular malformation. Cyber Operator[facility] Transcribe Date/Time: Feb 10 2024 10:23A Dictated by : JAMAL ATKINS MD This examination was interpreted and the report reviewed and electronically signed by: JAMAL ATKINS MD on Feb 10 2024 10:44AM [facility] No Panel Informationon 02-09 IMPRESSION: No acute intracranial abnormality. No signal or structural abnormality to suggest an etiology for left hemifacial spasm. No apparent intracranial proximal arterial occlusion, aneurysm, or high-grade stenosis. No substantial vascular abutment of the left 7th nerve and no associated vascular malformation. Cyber Operator: [facility] Transcribe Date/Time: Feb 10 2024 10:23A Dictated by : JAMAL ATKINS MD This examination was interpreted and the report reviewed and electronically signed by: JAMAL ATKINS MD on Feb 10 2024 10:44AM EST DIVISION OF RADIOLOGY Radiology Study observation (narrative) [facility] No Panel InformationOrdered By: Ccf Provider on 02-10-2024 [facility] Office Visiton 01-20-2024 Follow-up visit [id number] Greyson Rojas 1970 F Date Provider Department [facility] 01/[facility]20[id number] None No family history on file Level of Service:76772 [place] OFFICE/OUTPATIENT NEW MDM 15 MINUTES Reason for Visit and Comments: New Patient [542] - Right heel pain Normal [facility] Progress Noteon 01-20-2024 Progress Note [facility] [address] [place] [id number] Dept: [phone] Dept Greyson Rojas 1970 [id number] 01/20/2024 HISTORY OF PRESENT ILLNESS: Greyson is a 53 y.o. female here today for evaluation of her right foot- bilateral heel pain but right is worse then left Greyson states the problem has been present for about 1 year Greyson states the problem started gradually with no injuries occurring Greyson has tried or has been treated with the following: modifying her activity level and avoiding those activities which aggravate the problem and custom molded foot orthoses. 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 Review of Systems Surgical Risk Factors: Allergies to Metals or Latex: NO Have you been treated for a blood clot: NO Have you had a history of bleeding disorder: NO Have you had a history of Anesthetic problems: NO Do you have tendency to bruise easily: NO Do you experience prolonged or excessive bleeding from cuts or after surgery: NO General/Constitutional: General: no Cancer: NO Acute/Chronic Infections: NO HEENT/Neck: Problems with theThroat: NO Problems with the Eyes: NO Problems with the Ears: NO Problems with the Nose and Sinuses: NO Endocrine: Problems with Diabetes: NO Problems with Thyroid Disorder: NO Thorax: Problems with the Heart: NO Problems with the Lung: no Cardiovascular: Problems with Circulation: NO Problems with High Blood pressure: NO Gastrointestinal: Problems with Ulcers: NO Problems with the Liver: no Problems with Bowel Habits: NO Genitourinary: Problems with the Genitals: NO Urinary problems: NO Kidney disease or stones: NO Skin: Any general problems: NO Neurologic: Dizziness, blurred vision, headaches, problems with balance : NO Seizures or Stroke: NO Psychiatric: Emotional or Psychological disorders: NO Depression or Anxiety: no PAST MEDICAL HISTORY: Past Medical History: Diagnosis Date Anemia Breast cancer (HCC) Osteopenia Allergies Allergen Reactions Penicillins Hives Other Reaction(s): hives all over body Other reaction(s): hives all over body Nickel Rash PHYSICAL EXAM: Ht 1.6 m (5' 3) Wt 59 kg (130 lb) BMI 23.03 kg/m? This is an age appropriate appearing female who is alert and oriented x 3. The patient appears well nourished. Psychiatric: The patient is able to verbalize normally and seems to have a good understanding of her situation. right lower extremity examination Lymphatic System: No areas of swelling are seen Vascular: Dorsalis pedis pulse: 2+ Posterior tibial pulse: 2+ Capillary refill is less than 3 seconds Skin/nails: Normal appearance, warm and dry Hair growth present on foot and toes Neurologic: Sensation intact to light touch throughout the foot and the ankle Muscle: Muscle strength testing: Anterior tibialis: 5/5 Posterior tibialis: 5/5 Peroneus brevis: 5/5 Peroneus longus: 5/5 Gastrocsoleus: 5/5 Tender to palpation at the plantar fascial origin and along the length of the plantar fascia. Heel squeeze is negative bilaterally. Compression of the tarsal tunnel did not reproduce symptoms. The Achilles tendon was nontender to palpation bilaterally. Gait and Station: Greyson is able to ambulate with a normal gait Greyson is able to stand unassisted and maintains balance RADIOGRAPHIC INTERPRETATION: 3 weightbearing views of both the right and left foot were obtained. Both the right and left foot show no signs of plantar calcaneal spurring. On the right side small area of calcification is noted at the Achilles tendon insertion. Longitudinal arch height is well-maintained bilaterally. No signs of arthrosis in the foot bilaterally. REVIEW OF RELATED PREVIOUS DOCUMENTATION: No documents related to the current problem(s) were reviewed or no documents were available for review. LABORATORY RESULT INTERPRETATION: No labs were reviewed/No labs available for review DIAGNOSIS: Diagnosis Plan 1. Bilateral plantar fasciitis External referral to Physical Therapy 2. Left foot pain XR foot 3+ views left MEDICAL DECISION MAKING: I had a discussion with Greyson to make sure she has a good understanding of the diagnoses/issues that I think are present today and understands the plan moving forward. Greyson was given a plantar fascial stretching program handout and the exercises were reviewed with her. I explained that it can take several months working on the stretches and exercises before benefit is noted but most patients improve with the program. If Greyson has any questions about the program she was instructed to call me. Greyson was given a referral to physical therapy today. I explained that if therapy is causing any problems then Greyson needs to discus (more content not included)... Normal [facility] NITRIC OXIDE, EXHALEDon 01-01 Amira Malcolm RPF T 01/13/2024 3:07 PM RESPIRATORY THERAPY ORAL EXHALED NITRIC OXIDE SERVICE DATE: 01/13/2024 SERVICE TIME: 3:07 PM Oral Exhaled Nitric Oxide measurement: <5.0 (ppb) Normal: Adult 5-20 ppb, pediatric (<12 years) 5-15 ppb High Normal / Increased: Adult 20-35 ppb, pediatric (<12 years) 15-25 ppb Moderately raised exhaled Nitric Oxide may indicate underlying inflammation, but note that: Cold and influenza can raise exhaled Nitric Oxide and some patients have higher baseline exhaled Nitric Oxide levels than others. High: Adult >35 ppb, pediatric (<12 years) >25 ppb Indicative of ongoing eosinophilic inflammation. Symptomatic patient likely to respond to steroids. Possible causes (if already on steroids): Poor compliance, recent allergen exposure, steroid dose inadequate, and steroid resistance. Note that not all patients with high exhaled nitric oxide levels display symptoms. Oral Exhaled Nitric Oxide measurement (Previous Encounters) Test Date Oral Exhaled Nitric Oxide (ppb) 01/13/2024 <5.0 NAME: GURPREET Simental PATIENT NAME: Greyson Rojas DATE: January 13, 2024 TIME: 3:07 PM [facility] SPIROMETRY - BASELINE AND PO ST DILATORon 12-24-2023 JLI41-35% POST (L/S) 2.28 L/S [facility] BIW41-74% PRE (L/S) 1.89 L/S [facility] FEV1 PRE (L) 2.44 L [facility] FEV1/FVC POST (%) [facility] % [facility] FEV1/FVC PRE (%) 75 % [facility] FEV1_POST (L) 2.55 L [facility] FVC POST (L) 3.19 L [facility] FVC PRE (L) 3.24 L [facility] PEF POST (L/S) 6.95 L/S [facility] PEF PRE (L/S) 6.72 L/S [facility] [address] [facility], [place] [address] Test Date: 2023-12-24 Pat Name: GREYSON ROJAS Department: Room: Gender: Female 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 No contraindications or sensitivities were noted. Meds taken: None before testing. 2 puffs Albuterol (180 mcg) delivered by MDI via holding chamber. HR pre = 77/min, HR post = 77/min. Current ATS/ERS acceptability and repeatability standards for spirometry met. Start of test and EOFE criteria met. IMPRESSION: Spirometry is normal. There was not a significant bronchodilator response. Electronically Signed On 12-24-2023 13:55:14 EDT by Cheyenne Cherry MD ID: [id number] Name: GREYSON ROJAS Race: White Ht: 62.99 in Wt: 132.00 lbs Age: 53 Gender: Female : 1970 Dx: Cough Smoking Hx: Non-smoker Doctor: ROSSI MARTINEZ Test Date: 12/24/2023 Site: [facility] Grover: Amira Malcolm PRE-BRONCH POST-BRONCH Pre LLN Pred ULN %Pred Post %Pred %Chg SPIROMETRY FVC (L) 3.24 2.17 2.96 3.76 109 3.19 107 -1 FEV1 (L) 2.44 1.74 2.39 3.01 102 2.55 106 4 FEV1/FVC 0.75 0.69 0.81 0.90 93 0.80 99 6 PEF L/s (L/sec) 6.72 4.69 6.35 8.00 105 6.95 109 3 FEF50 (L/sec) 2.82 1.75 3.36 4.97 84 3.04 90 7 FIF50 (L/sec) 3.26 3.60 10 FEF50/FIF50 0.87 90-100 0.84 -2 FIVC (L) 3.02 2.77 -8 ILF37-39 (L/sec) 1.89 1.28 2.40 3.87 78 2.28 95 20 Time (sec) 7.50 5.03 -32 FET PEF (sec) 0.09 0.10 7 JIMMIE (L) 0.11 0.13 12 Vol Extrap % (%) 3 4 14 Comments: Medications and Allergies were reviewed for possible drug interactions per policy. No contraindications or sensitivities were noted. Meds taken: None before testing. 2 puffs Albuterol (180 mcg) delivered by MDI via holding chamber. HR pre = 77/min, HR post = 77/min. Current ATS/ERS acceptability and repeatability standards for spirometry met. Start of test and EOFE criteria met. PULMONARY FUNCTION LAB [facility] XR Chest PA and Lateralon IMPRESSION: No acute radiographic abnormality. Cyber Operator: ROD Transcribe Date/Time: Dec 02 2023 9:36A Dictated by : RILEY HENSON MD This examination was interpreted and the report reviewed and electronically signed by: RILEY HENSON MD on Dec 02 2023 9:36AM [facility] DIVISION OF RADIOLOGY * * *Final Report* * * DATE OF EXAM: Dec 01 2023 4:46PM WOX [id number] - XR CHEST 2V FRONTAL/LAT / PROCEDURE REASON: Persistent dry cough * * * * Physician Interpretation * * * * EXAMINATION: CHEST RADIOGRAPH (2 VIEW FRONTAL & LATERAL) CLINICAL HISTORY: Persistent dry cough MQ: XC2_6 EXAM DATE/TIME: 12/01/2023 4:46 PM COMPARISON: Chest tube on 11/19/2022 RESULT: Lines, tubes, and devices: None. Lungs and pleura: No consolidation. No lung mass. No pleural effusion. No pneumothorax. Cardiomediastinal silhouette: Normal cardiomediastinal silhouette. Bones and soft tissues: There are bilateral breast implants. DIVISION OF RADIOLOGY Provider, Kimmie Kate - 12/02/2023 * * *Final Report* * * DATE OF EXAM: Dec 01 2023 4:46PM WOX [id number] - XR CHEST 2V FRONTAL/LAT / PROCEDURE REASON: Persistent dry cough * * * * Physician Interpretation * * * * EXAMINATION: CHEST RADIOGRAPH (2 VIEW FRONTAL & LATERAL) CLINICAL HISTORY: Persistent dry cough MQ: XC2_6 EXAM DATE/TIME: 12/01/2023 4:46 PM COMPARISON: Chest tube on 11/19/2022 RESULT: Lines, tubes, and devices: None. Lungs and pleura: No consolidation. No lung mass. No pleural effusion. No pneumothorax. Cardiomediastinal silhouette: Normal cardiomediastinal silhouette. Bones and soft tissues: There are bilateral breast implants. IMPRESSION IMPRESSION: No acute radiographic abnormality. Cyber Operator: [facility] Transcribe Date/Time: Dec 02 2023 9:36A Dictated by : RILEY HENSON MD This examination was interpreted and the report reviewed and electronically signed by: RILEY HENSON MD on Dec 02 2023 9:36AM EST [facility] XR Chest PA and LateralOrder ed By: Ccf Provider on 12-02-2023 [facility] XR Chest PA and Lateralon Radiology Study observation (narrative) [facility] .Auto Diffon 06-29-2023 Basophil, Absolute 0.0 10 3/mcL Normal 0.0-0.2 [facility] ([place]) Comment on above: Performed By: #### B MP, ALB, ANEU, GFR, ADIFF, CBC #### [address] [address] Basophils/100 WBC (Bld) 0.4 % Normal 0.0-2.5 [facility] ([place]) Comment on above: Performed By: #### B MP, ALB, ANEU, GFR, ADIFF, CBC #### [address] [address] Eosinophil, Absolute 0.0 10 3/mcL Normal 0.0-0.4 [facility] ([place]) Comment on above: Performed By: #### B MP, ALB, ANEU, GFR, ADIFF, CBC #### [address] [address] Eosinophils/100 WBC (Bld) 0.7 % Normal 0.0-7.0 [facility] ([place]) Comment on above: Performed By: #### B MP, ALB, ANEU, GFR, ADIFF, CBC #### [address] [address] Lymphocyte, Absolute 1.6 10 3/mcL Normal 0.8-3.9 [facility] ([place]) Comment on above: Performed By: #### B MP, ALB, ANEU, GFR, ADIFF, CBC #### [address] [address] Lymphocytes/100 WBC (Bld) 32.7 % Normal 10.0-50.0 [facility] ([place]) Comment on above: Performed By: #### B MP, ALB, ANEU, GFR, ADIFF, CBC #### [address] [address] Monocyte, Absolute 0.5 10 3/mcL Normal 0.2-1.0 [facility] ([place]) Comment on above: Performed By: #### B MP, ALB, ANEU, GFR, ADIFF, CBC #### [address] [address] Monocytes/100 WBC (Bld) 9.4 % Normal 1.7-13.0 [facility] ([place]) Comment on above: Performed By: #### B MP, ALB, ANEU, GFR, ADIFF, CBC #### [address] [address] Neutrophils/100 WBC (Bld) 56.8 % Normal 37.0-80.0 [facility] ([place]) Comment on above: Performed By: #### B MP, ALB, ANEU, GFR, ADIFF, CBC #### [address] [address] .GFRon 06-29-2023 GFR 92 ml/min/1.73sqm Normal [facility] ([place]) Comment on above: Result Comment: GFR Population mean for , Non- Americans Ages 20-29 = 116 mL/min/1.73 sq.m. Ages 30-39 = 107 mL/min/1.73 sq.m. Ages 40-49 = 99 mL/min/1.73 sq.m. Ages 50-59 = 93 mL/min/1.73 sq.m. Ages 60-69 = 85 mL/min/1.73 sq.m. Ages 70+ = 75 mL/min/1.73 sq.m. Chronic Kidney Disease: Less than 60 mL/min/1.73 square meters End Stage Renal Disease: Less than 15 mL/min/1.73 square meters Performed By: #### B MP, ALB, ANEU, GFR, ADIFF, CBC #### [address] [address] GFR Non- 76 ml/min/1.73sqm Normal [facility] ([place]) Comment on above: Result Comment: GFR Population mean for , Non- Americans Ages 20-29 = 116 mL/min/1.73 sq.m. Ages 30-39 = 107 mL/min/1.73 sq.m. Ages 40-49 = 99 mL/min/1.73 sq.m. Ages 50-59 = 93 mL/min/1.73 sq.m. Ages 60-69 = 85 mL/min/1.73 sq.m. Ages 70+ = 75 mL/min/1.73 sq.m. Chronic Kidney Disease: Less than 60 mL/min/1.73 square meters End Stage Renal Disease: Less than 15 mL/min/1.73 square meters Performed By: #### B MP, ALB, ANEU, GFR, ADIFF, CBC #### [address] [address] .NEUABSon 06-29-2023 Neutrophil, Absolute 2.8 10 3/mcL Low 2.9-6.2 [facility] ([place]) Comment on above: Performed By: #### B MP, ALB, ANEU, GFR, ADIFF, CBC #### [address] [address] ALBon 06-29-2023 Albumin Level 4.0 G/dL Normal 3.5-5.0 [facility] ([place]) Comment on above: Performed By: #### B MP, ALB, ANEU, GFR, ADIFF, CBC #### [address] [address] BMPon 06-29-2023 BUN/Creatinine Ratio 14 ratio Normal - [facility] ([place]) Comment on above: Performed By: #### B MP, ALB, ANEU, GFR, ADIFF, CBC #### [address] [address] Calcium [Mass/Vol] 8.9 mg/dL Normal 8.4-10.2 [facility] ([place]) Comment on above: Performed By: #### B MP, ALB, ANEU, GFR, ADIFF, CBC #### [place] [id number] Chloride [Moles/Vol] 102 mmol/L Normal 98-107 [facility] ([place]) Comment on above: Performed By: #### B MP, ALB, ANEU, GFR, ADIFF, CBC #### [address] [address] CO2 [Moles/Vol] 30 mmol/L High 22-29 [facility] ([place]) Comment on above: Performed By: #### B MP, ALB, ANEU, GFR, ADIFF, CBC #### [address] [address] Creatinine [Mass/Vol] 0.79 mg/dL Normal 0.55-1.02 [facility] ([place]) Comment on above: Performed By: #### B MP, ALB, ANEU, GFR, ADIFF, CBC #### [address] [address] Electrolyte Balance 7.0 mEq/L Normal 4.0-15.0 [facility] ([place]) Comment on above: Performed By: #### B MP, ALB, ANEU, GFR, ADIFF, CBC #### [address] [address] Glucose [Mass/Vol] 81 mg/dL Normal 70-105 [facility] ([place]) Comment on above: Performed By: #### B MP, ALB, ANEU, GFR, ADIFF, CBC #### [address] [address] Potassium [Moles/Vol] 4.2 mmol/L Normal 3.5-5.1 [facility] ([place]) Comment on above: Performed By: #### B MP, ALB, ANEU, GFR, ADIFF, CBC #### [address] [address] Sodium [Moles/Vol] 139 mmol/L Normal 136-145 [facility] ([place]) Comment on above: Performed By: #### B MP, ALB, ANEU, GFR, ADIFF, CBC #### [place] [address] Urea nitrogen [Mass/Vol] 11 mg/dL Normal 7-18 [facility] ([place]) Comment on above: Performed By: #### B MP, ALB, ANEU, GFR, ADIFF, CBC #### [address] [address] CBCon 06-29-2023 Erythrocyte distribution width (RBC) [Ratio] 14.1 % Normal 11.5-14.5 [facility] ([place]) Comment on above: Performed By: #### B MP, ALB, ANEU, GFR, ADIFF, CBC #### [address] [address] Hematocrit (Bld) [Volume fraction] 39.7 % Normal 37.0-47.0 [facility] ([place]) Comment on above: Performed By: #### B MP, ALB, ANEU, GFR, ADIFF, CBC #### [address] [address] Hgb 13.0 G/dL Normal 12.0-16.0 [facility] ([place]) Comment on above: Performed By: #### B MP, ALB, ANEU, GFR, ADIFF, CBC #### [address] [address] MCH (RBC) [Entitic mass] 28.1 pg Normal 27.0-31.2 [facility] ([place]) Comment on above: Performed By: #### B MP, ALB, ANEU, GFR, ADIFF, CBC #### [address] [address] MCHC 32.7 G/dL Low 33.0-37.0 [facility] ([place]) Comment on above: Performed By: #### B MP, ALB, ANEU, GFR, ADIFF, CBC #### [address] [address] MCV (RBC) [Entitic vol] 86.0 fL Normal 80.0-94.0 [facility] ([place]) Comment on above: Performed By: #### B MP, ALB, ANEU, GFR, ADIFF, CBC #### [place] [id number] Platelet 223 10 3/mcL Normal 130-400 [facility] ([place]) Comment on above: Performed By: #### B MP, ALB, ANEU, GFR, ADIFF, CBC #### [address] [address] Platelet mean volume (Bld) [Entitic vol] 8.8 fL Normal 7.4-10.4 [facility] ([place]) Comment on above: Performed By: #### B MP, ALB, ANEU, GFR, ADIFF, CBC #### [place] [id number] RBC 4.62 10 6/mcL Normal 4.20-5.40 [facility] ([place]) Comment on above: Performed By: #### B MP, ALB, ANEU, GFR, ADIFF, CBC #### [place] [id number] WBC 5.0 10 3/mcL Normal 4.6-10.8 [facility] ([place]) Comment on above: Performed By: #### B MP, ALB, ANEU, GFR, ADIFF, CBC #### [facility] [address] [place], [place] [address] CT KNEE W/O CONTRAST LEFTon 06-29-2023 CT KNEE W/O CONTRAST LEFT ORIGINAL EXAMINATION: CT OF THE LEFT KNEE WITHOUT CONTRAST 06/29/2023 11:05 am TECHNIQUE: CT of the left knee was performed without the administration of intravenous contrast. Multiplanar reformatted images are provided for review. Automated exposure control, iterative reconstruction, and/or weight based adjustment of the mA/kV was utilized to reduce the radiation dose to as low as reasonably achievable. COMPARISON: None. HISTORY ORDERING SYSTEM PROVIDED HISTORY: Reason for Exam: Unilateral primary osteoarthritis FINDINGS: Survey images left hip: No aggressive bony lesion Left knee: Moderate to severe tricompartmental joint space loss and spurring seen. No fractures are identified. A small joint effusions seen. Lateral tilt of the patella noted. Survey images left ankle: No aggressive bony lesion IMPRESSION: Advanced degenerative changes in the left knee. Small left knee joint effusion Interpreted by: Shailesh Allan MD Preliminary Report By: Shailesh Allan MD Electronically signed By Shailesh Allan MD Dictated Date: 06/29/2023 2:19:57 PM Prelim Date: 06/29/2023 2:21:39 PM Sign Date: 06/29/2023 2:21:39 PM Ordering Provider: FELICITA CEDILLO [facility] ([place]) XR Abdomen Supine and Uprigh ton 04-10-2023 IMPRESSION: Findings as described above. Cyber Operator: ROD Transcribe Date/Time: Apr 10 2023 11:32A Dictated by : RILEY HENSON MD This examination was interpreted and the report reviewed and electronically signed by: RILEY HENSON MD on Apr 10 2023 11:35AM [facility] DIVISION OF RADIOLOGY * * *Final Report* * * DATE OF EXAM: Apr 08 2023 4:29PM WOX [id number] - XR ABDOMEN 1V SUPINE / PROCEDURE REASON: Chronic constipation * * * * Physician Interpretation * * * * EXAM TITLE: XR ABDOMEN 1V SUPINE EXAM DATE/TIME: 04/08/2023 4:29 PM COMPARISON: X-ray abdomen on 08/21/2017 CLINICAL INDICATION/HISTORY: Chronic constipation. TECHNIQUE: AP views of the abdomen are presented. FINDINGS: Altogether 14 Sitzmarks are visualized; most of them are likely in the large bowel loops and a few of them may be in small bowel. Moderate stool burden. No abnormally dilated bowel loops identified. Tiny phlebolith seen in the pelvis. There are no abnormal calcifications. The bony structures appear intact. DIVISION OF RADIOLOGY Provider, Kimmie Camacho [facility] - 04/10/2023 * * *Final Report* * * DATE OF EXAM: Apr 08 2023 4:29PM WOX [id number] - XR ABDOMEN 1V SUPINE / PROCEDURE REASON: Chronic constipation * * * * Physician Interpretation * * * * EXAM TITLE: XR ABDOMEN 1V SUPINE EXAM DATE/TIME: 04/08/2023 4:29 PM COMPARISON: X-ray abdomen on 08/21/2017 CLINICAL INDICATION/HISTORY: Chronic constipation. TECHNIQUE: AP views of the abdomen are presented. FINDINGS: Altogether 14 Sitzmarks are visualized; most of them are likely in the large bowel loops and a few of them may be in small bowel. Moderate stool burden. No abnormally dilated bowel loops identified. Tiny phlebolith seen in the pelvis. There are no abnormal calcifications. The bony structures appear intact. IMPRESSION IMPRESSION: Findings as described above. Cyber Operator: [facility] Transcribe Date/Time: Apr 10 2023 11:32A Dictated by : RILEY HENSON MD This examination was interpreted and the report reviewed and electronically signed by: RILEY HENSON MD on Apr 10 2023 11:35AM EST [facility] XR Abdomen Supine and Uprigh tOrdered By: Ccf Provider on 04-10-2023 [facility] XR Abdomen Supine and Uprigh ton 04-08-2023 Radiology Study observation (narrative) [facility] Colonoscopy Study observatio non 03-16-2023 [facility] Patient Name: Greyson Rojas Procedure Date: 03/16/2023 11:15 AM Date of : 1970 Admit Type: Outpatient Age: 53 Room: [place] [address] Gender: Female Note Status: Finalized Attending MD: Alejandro Hatfield MD Procedure: Colonoscopy Indications: Screening in patient at increased risk: Family history of 1st-degree relative with colorectal cancer Providers: Alejandro Hatfield MD Patient Profile: Last Colonoscopy: 5 years ago. Referring Physician: Ceci Nava (Referring MD) Medicines: Monitored Anesthesia Care Complications: No immediate complications. Requesting Provider: Procedure: Pre-Anesthesia Assessment: - Prior to the procedure, a History and Physical was performed, and patient medications and allergies were reviewed. The patient's tolerance of previous anesthesia was also reviewed. The risks and benefits of the procedure and the sedation options and risks were discussed with the patient. All questions were answered, and informed consent was obtained. Prior Anticoagulants: The patient has taken no anticoagulant or antiplatelet agents. ASA Grade Assessment: II - A patient with mild systemic disease. After reviewing the risks and benefits, the patient was deemed in satisfactory condition to undergo the procedure. After I obtained informed consent, the scope was passed under direct vision. Throughout the procedure, the patient's blood pressure, pulse, and oxygen saturations were monitored continuously. The Colonoscope was introduced through the anus and advanced to the cecum, identified by appendiceal orifice and ileocecal valve. I was present and participated during the entire procedure, including non-phillips portions, and during the administration and monitoring of Moderate Sedation. The colonoscopy was performed without difficulty. The patient tolerated the procedure well. The quality of the bowel preparation was good. The ileocecal valve, appendiceal orifice, and rectum were photographed. Moderate Sedation: MAC anesthesia was administered by the anesthesia team. Findings: External hemorrhoids were found during retroflexion. The hemorrhoids were small. Impression: - External hemorrhoids. - No specimens collected. Recommendation: - Patient has a contact number available for emergencies. The signs and symptoms of potential delayed complications were discussed with the patient. Return to normal activities tomorrow. Written discharge instructions were provided to the patient. - Resume previous diet. - Continue present medications. - Repeat colonoscopy in 5 years for screening purposes. - Return to GI clinic PRN. - The patient is not currently taking anticoagulant or antiplatelet agents. Procedure Code(s): --- Professional --- 20594, Colonoscopy, flexible; diagnostic, including collection of specimen(s) by brushing or washing, when performed (separate procedure) CPT copyright 2020 [employer]. All rights reserved. The codes documented in this report are preliminary and upon seal extrusion operator review may be revised to meet current compliance requirements. Attending Participation: I personally performed the entire procedure. Scope In: 11:34:58 AM Scope Out: 11:47:40 AM MD Alejandro Mota MD 03/16/2023 11:51:03 AM This report has been signed electronically by Alejandro Hatfield MD Number of Addenda: 0 Note Initiated On: 03/16/2023 11:15 AM Estimated Blood Loss: Estimated blood loss: none. PROVATION [facility] Radiology Study observation (narrative) [facility] MRI KNEE W/O CONTRAST LEFTon 02-09-2023 MRI KNEE W/O CONTRAST LEFT ORIGINAL EXAMINATION: MRI OF THE LEFT KNEE WITHOUT CONTRAST02/09/2023 11:16 am TECHNIQUE: Multiplanar multisequence MRI of the left knee was performed without the administration of intravenous contrast. COMPARISON: None HISTORY: ORDERING SYSTEM PROVIDED HISTORY: Reason for Exam: Pain in LT knee. Anterior knee pain. No recent injury. FINDINGS: MUSCLES, TENDONS, AND LIGAMENTS: The anterior cruciate ligament is intact. The posterior cruciate ligament is intact. The deep and superficial components of the medial collateral ligament are intact. However, there is mild periligamentous edema. The lateral collateral ligament complex is intact. The popliteus and biceps femoris tendons, iliotibial band, and extensor mechanism are intact. MENISCI: The medial meniscus is intact. The lateral meniscus is intact. OSSEOUS STRUCTURES AND JOINTS: No fracture or dislocation is evident. No visualized marrow replacing osseous lesions. Low-grade cartilage thinning is noted of the medial and lateral femorotibial compartments with marginal osteophyte formation. There is high-grade, near full-thickness chondral thinning involving the central aspect of lateral patellar facet, also involving the inferior aspect of the lateral facet. Minimal reactive subchondral marrow edema. High-grade chondral thinning also involves the median ridge, greatest inferiorly. High-grade chondral thinning of the superior and mid aspects of lateral femoral trochlea also. Deep articular cartilage fissuring of the trochlear groove. Mild lateral patellar subluxation. Normal tibial tuberosity-trochlear groove distance measures 1.3 cm. Trace volume effusion. SOFT TISSUES: No significant volume of fluid is evident in a popliteal cyst. Nonspecific mild prepatellar subcutaneous edema. Small ganglia are noted at the origins of medial and lateral gastrocnemius tendons. IMPRESSION: 1. Question low-grade sprain of medial collateral ligament. 2. Tricompartmental osteoarthrosis, most advanced of the patellofemoral compartment. Trace volume effusion. Interpreted by: Shailesh Rinaldi DO Preliminary Report By: Shailesh Rinaldi DO Electronically signed By Shailesh Rinaldi DO Dictated Date: 02/09/2023 2:45:52 PM Prelim Date: 02/09/2023 3:00:14 PM Sign Date: 02/09/2023 3:00:14 PM Ordering Provider: FELICITA CEDILLO [facility] ([place]) [facility]G(NEURO/NI)on 02-05-2023 Results can be seen in attached scanned documents. If you are a patient reviewing this test result, call the doctor who ordered the test with any questions. [facility] MRI HIP WO IVCON RIGHTon [facility] US Hip - righton 12-17-2022 IMPRESSION: Findings of mild gluteus medius peritendinitis. No gluteal tendon tear is identified. Cyber Operator: ROD Transcribe Date/Time: Dec 17 2022 1:43P Dictated by : DINORAH TENORIO MD This examination was interpreted and the report reviewed and electronically signed by: TIMO STANTON MD on Dec 17 2022 2:03PM [facility] DIVISION OF RADIOLOGY * * *Final Report* * * DATE OF EXAM: Dec 17 2022 1:39PM MISAEL 1148 - US HIP RT / PROCEDURE REASON: Trochanteric bursitis of right hip * * * * Physician Interpretation * * * * MSK_US RIGHT LATERAL HIP ULTRASOUND: CLINICAL INFORMATION: Trochanteric bursitis of right hip TECHNIQUE: Collazo-scale real-time ultrasound of the lateral hip with dynamic imaging and power Doppler examination was performed. Images were saved to the permanent image archive. v2-20. COMPARISON: MR RIGHT hip 11/04/2021 FINDINGS: GLUTEUS MINIMUS TENDON: Tendinosis: None Tearing: None. Power Doppler Examination: No increased signal. Osseous Changes: Normal appearance. GLUTEUS MEDIUS TENDON: Tendinosis: None Tearing: None. Power Doppler Examination: Mild peritendinous hyperemia. Osseous Changes: Normal appearance. GLUTEUS MUSCULATURE: Bulk: Maintained Echogenicity: Preserved. GREATER TROCHANTER BURSAE: No findings of bursitis. LATERAL JOINT SPACE: No significant joint effusion seen. ILIOTIBIAL BAND: Intact appearing. No snapping seen. DIVISION OF RADIOLOGY Provider, Kimmie kelly [place] - 12/17/2022 * * *Final Report* * * DATE OF EXAM: Dec 17 2022 1:39PM MISAEL 1148 - US HIP RT / PROCEDURE REASON: Trochanteric bursitis of right hip * * * * Physician Interpretation * * * * MSK_US RIGHT LATERAL HIP ULTRASOUND: CLINICAL INFORMATION: Trochanteric bursitis of right hip TECHNIQUE: Collazo-scale real-time ultrasound of the lateral hip with dynamic imaging and power Doppler examination was performed. Images were saved to the permanent image archive. v2-20. COMPARISON: MR RIGHT hip 11/04/2021 FINDINGS: GLUTEUS MINIMUS TENDON: Tendinosis: None Tearing: None. Power Doppler Examination: No increased signal. Osseous Changes: Normal appearance. GLUTEUS MEDIUS TENDON: Tendinosis: None Tearing: None. Power Doppler Examination: Mild peritendinous hyperemia. Osseous Changes: Normal appearance. GLUTEUS MUSCULATURE: Bulk: Maintained Echogenicity: Preserved. GREATER TROCHANTER BURSAE: No findings of bursitis. LATERAL JOINT SPACE: No significant joint effusion seen. ILIOTIBIAL BAND: Intact appearing. No snapping seen. IMPRESSION IMPRESSION: Findings of mild gluteus medius peritendinitis. No gluteal tendon tear is identified. Cyber Operator: ROD Transcribe Date/Time: Dec 17 2022 1:43P Dictated by : DINORAH TENORIO MD This examination was interpreted and the report reviewed and electronically signed by: TIMO STANTON MD on Dec 17 2022 2:03PM EST [facility] Radiology Study observation (narrative) [facility] Hip - rightOrdered By: Cc f Provider on 12-17-2022 [facility] NM GASTRIC EMPTYING SOLIDon 12-05-2022 [facility] No Panel Informationon 11-24 [facility] Influenza virus A and B RNA and SARS-CoV-2 (COVID-19) N gene panel LUIS+probe (Resp)on 11-20-2022 FLUAV RNA LUIS+probe Ql (Unsp spec) Not detected Not Detected [facility] FLUBV RNA LUIS+probe Ql (Unsp spec) Not detected Not Detected [facility] SARS-CoV-2 (COVID-19) RNA LUIS+probe Ql (Resp) Not detected See comment [facility] XR Chest PA and Lateralon IMPRESSION: No acute radiographic abnormality. Cyber Operator: ROD Transcribe Date/Time: Nov 20 2022 7:45A Dictated by : AUDELIA SAMUEL MD This examination was interpreted and the report reviewed and electronically signed by: AUDELIA SAMUEL MD on Nov 20 2022 7:46AM [facility] DIVISION OF RADIOLOGY * * *Final Report* * * DATE OF EXAM: Nov 19 2022 4:58PM WOX [id number] - XR CHEST 2V FRONTAL/LAT / PROCEDURE REASON: multiple diagnoses * * * * Physician Interpretation * * * * EXAMINATION: CHEST RADIOGRAPH (2 VIEW FRONTAL & LATERAL) CLINICAL HISTORY: Sore throat Congestion of upper airway MQ: XC2_6 EXAM DATE/TIME: 11/19/2022 4:58 PM COMPARISON: No relevant prior studies available. RESULT: Lines, tubes, and devices: None. Lungs and pleura: No consolidation. No lung mass. No pleural effusion. No pneumothorax. Cardiomediastinal silhouette: Normal cardiomediastinal silhouette. Bones and soft tissues: Unremarkable. DIVISION OF RADIOLOGY Provider, [facility] - 11/20/2022 * * *Final Report* * * DATE OF EXAM: Nov 19 2022 4:58PM WOX 5291 - XR CHEST 2V FRONTAL/LAT / PROCEDURE REASON: multiple diagnoses * * * * Physician Interpretation * * * * EXAMINATION: CHEST RADIOGRAPH (2 VIEW FRONTAL & LATERAL) CLINICAL HISTORY: Sore throat Congestion of upper airway MQ: XC2_6 EXAM DATE/TIME: 11/19/2022 4:58 PM COMPARISON: No relevant prior studies available. RESULT: Lines, tubes, and devices: None. Lungs and pleura: No consolidation. No lung mass. No pleural effusion. No pneumothorax. Cardiomediastinal silhouette: Normal cardiomediastinal silhouette. Bones and soft tissues: Unremarkable. IMPRESSION IMPRESSION: No acute radiographic abnormality. Cyber Operator: ROD Transcribe Date/Time: Nov 20 2022 7:45A Dictated by : AUDELIA SAMUEL MD This examination was interpreted and the report reviewed and electronically signed by: AUDELIA SAMUEL MD on Nov 20 2022 7:46AM EST [facility] XR Chest PA and LateralOrder ed By: Ccf Provider on 11-20-2022 [facility] STREP A MOLECULAR (POC)on Procedural Control Valid [facility] Strep A (POCT) Negative Negative [facility] XR CHEST 2V FRONTAL/LATon [facility] XR Chest PA and Lateralon Radiology Study observation (narrative) [facility] XR Knee - left 4 Viewson IMPRESSION: Findings are suggestive of degenerative changes in the left knee. Cyber Operator: PSCB Transcribe Date/Time: Nov 03 2022 2:09P Dictated by : RILEY EHNSON MD This examination was interpreted and the report reviewed and electronically signed by: RILEY HENSON MD on Nov 03 2022 2:11PM EST DIVISION OF RADIOLOGY * * *Final Report* * * DATE OF EXAM: Oct 31 2022 10:32AM WOX 5202 - XR KNEE 4V AP/PA BOTH+LAT/JACKIE LT / PROCEDURE REASON: multiple diagnoses * * * * Physician Interpretation * * * * EXAM TITLE: XR KNEE 4V AP/PA BOTH+LAT/JACKIE LT EXAM DATE/TIME: 10/31/2022 10:32 AM COMPARISON: None. CLINICAL INDICATION/HISTORY: Chronic pain. TECHNIQUE: AP/PA, lateral and sunrise views of the left knee are presented. FINDINGS: No fractures or subluxations are noted. Tricompartmental osteophyte formation is noted. The joint spaces are grossly preserved. There is no evidence of joint effusion. The mineralization of the bones is normal. There is no significant soft tissue swelling. DIVISION OF RADIOLOGY Provider, [facility] - 11/03/2022 * * *Final Report* * * DATE OF EXAM: Oct 31 2022 10:32AM WOX 5202 - XR KNEE 4V AP/PA BOTH+LAT/JACKIE LT / PROCEDURE REASON: multiple diagnoses * * * * Physician Interpretation * * * * EXAM TITLE: XR KNEE 4V AP/PA BOTH+LAT/JACKIE LT EXAM DATE/TIME: 10/31/2022 10:32 AM COMPARISON: None. CLINICAL INDICATION/HISTORY: Chronic pain. TECHNIQUE: AP/PA, lateral and sunrise views of the left knee are presented. FINDINGS: No fractures or subluxations are noted. Tricompartmental osteophyte formation is noted. The joint spaces are grossly preserved. There is no evidence of joint effusion. The mineralization of the bones is normal. There is no significant soft tissue swelling. IMPRESSION IMPRESSION: Findings are suggestive of degenerative changes in the left knee. Cyber [facility] Transcribe Date/Time: Nov 03 2022 2:09P Dictated by : RILEY HENSON MD This examination was interpreted and the report reviewed and electronically signed by: RILEY HENSON MD on Nov 03 2022 2:11PM EST [facility] XR Knee - left 4 ViewsOrdere d By: Ccf Provider on 11-03-2022 [facility] No Panel Informationon 10-31 Radiology Study observation (narrative) [facility] XR CERV OTHER 4V AP/LAT/OBLo n 10-31-2022 [facility] XR Cervical spine AP and Lat eral and obliqueon 10-31-2022 IMPRESSION: DEGENERATIVE CHANGES DESCRIBED. STRAIGHTENING OF THE NORMAL LORDOSIS Cyber Operator: [facility] Transcribe Date/Time: Oct 31 2022 1:12P Dictated by : AUDELIA SAMUEL MD This examination was interpreted and the report reviewed and electronically signed by: AUDELIA SAMUEL MD on Oct 31 2022 1:21PM [facility] DIVISION OF RADIOLOGY * * *Final Report* * * DATE OF EXAM: Oct 31 2022 10:32AM WOX 5311 - XR CERVICAL 4V AP/LAT/OBL / PROCEDURE REASON: multiple diagnoses * * * * Physician Interpretation * * * * Examination: XR CERVICAL 4V AP/LAT/OBL History: Neck pain, chronic Neck pain, chronic Osteoarthritis of spine with radiculopathy, cervical region Numbness and tingling in right hand Technique: XR CERVICAL 4V AP/LAT/OBL Comparison: 11/15/2018 MRI RESULT: Straightening of the normal lordosis. Mild mid and lower cervical spondylosis. No fracture or prevertebral swelling. Multilevel mild to moderate foraminal encroachment at C4-5, C5-6 and C6-7. Normal alignment. DIVISION OF RADIOLOGY Provider, Kimmie Camacho [facility] - 10/31/2022 * * *Final Report* * * DATE OF EXAM: Oct 31 2022 10:32AM WOX 5311 - XR CERVICAL 4V AP/LAT/OBL / PROCEDURE REASON: multiple diagnoses * * * * Physician Interpretation * * * * Examination: XR CERVICAL 4V AP/LAT/OBL History: Neck pain, chronic Neck pain, chronic Osteoarthritis of spine with radiculopathy, cervical region Numbness and tingling in right hand Technique: XR CERVICAL 4V AP/LAT/OBL Comparison: 11/15/2018 MRI RESULT: Straightening of the normal lordosis. Mild mid and lower cervical spondylosis. No fracture or prevertebral swelling. Multilevel mild to moderate foraminal encroachment at C4-5, C5-6 and C6-7. Normal alignment. IMPRESSION IMPRESSION: DEGENERATIVE CHANGES DESCRIBED. STRAIGHTENING OF THE NORMAL LORDOSIS Cyber Operator: [facility] Transcribe Date/Time: Oct 31 2022 1:12P Dictated by : AUDELIA SAMUEL MD This examination was interpreted and the report reviewed and electronically signed by: AUDELIA SAMUEL MD on Oct 31 2022 1:21PM [facility] Guidance for injection of Hi jayne 09-23-2022 IMPRESSION: SUCCESSF UL FLUOROSCOPICALLY GUIDED THERAPEUTIC INJECTION OF THE RIGHT sacroiliac joint DESCRIBED ABOVE. Attending Radiologist: Dr. Shailesh Paredes MD Personnel Associate: Phuc Us MD - Fellow The procedure was performed by the the operating room assistant, and the attending radiologist was present for all critical and phillips portions of the procedure, and was immediately available to furnish services during the entire procedure. Cyber Operator: [facility] Transcribe Date/Time: Sep 23 2022 12:32P Dictated by : PHUC US MD This examination was interpreted and the report reviewed and electronically signed by: SHAILESH PAREDES MD on Sep 23 2022 6:11PM [facility] DIVISION OF RADIOLOGY * * *Final Report* * * DATE OF EXAM: Sep 23 2022 10:40AM [id number] - XR ASP/INJ HIP JT/BURSA RT / PROCEDURE REASON: Sacroiliitis (HCC) * * * * Physician Interpretation * * * * FLUOROSCOPICALLY GUIDED RIGHT SACROILIAC JOINT THERAPEUTIC INJECTION INDICATION: The patient is a 52 years year old Female who presented with Sacroiliitis (HCC) . CONSENT: The risks, benefits, treatment options, potential complications and personnel to be involved were discussed (including the instruments to be used, contrast and anesthesia administration) with the patient. All questions were answered and consent was obtained. The patient indicated willingness to proceed. GENERAL: a) Medication Reconciliation: The patient's medications and allergies were reviewed in the electronic medical record and reconciled to the proposed procedure/treatment. Pre-procedure Sign-in: Safety Checklist Performed Yes b) Positioning: The patient was placed Prone on the fluoroscopy table. c) The area was then sterilely prepped and draped. d) Time Out: A time out was performed immediately prior to procedure start with the nursing, anesthesia and interventional team, correctly identifying the patient name, date of , procedure, anatomy (including marking of site and side), patient position, procedure consent form, relevant diagnostic and radiology test results, antibiotic administration, safety precautions, and procedure-specific equipment needs. Procedure Start Time / Timeout Time: 10:36 AM e) Anesthesia Type: Local anesthesia: 2 mL 1% Nesacaine PROCEDURE: a) Procedure Details:A 22g spinal needle was inserted into the right sacroiliac joint. 1 ml Omnipaque 300 was injected to confirm intra-articular placement of needle. Contrast was observed to flow into the joint without significant resistance. 2 mL of injectate was administered into the joint . The needle was removed. Images were stored to the permanent digital archive documenting needle position. b) Injectate Contents: 1 mL Triamcinolone Acetonide (Kenalog) 40mg/ml 1 mL 0.5% Bupivacaine (Marcaine,Sensorcaine) c) Estimated Blood Loss: 0 mls d) Number and Type of Removed Specimens: N/A RADIATION DOSE Fluoroscopic Radiation Summary: Air Kerma: 5.4 mGy Fluoro time: 0:32 min:sec POST PROCEDURE: a) Hemostasis: Hemostasis was achieved using light manual compression. b) Sign-out: Communication Performed N/A c) Procedure End Time: 10:40 AM d) Conclusion: The patient was discharged from the radiology department in stable condition. COMPLICATIONS: a) Significant Patient Complication: None b) Complications during the procedure: None RESULTS:Medication was injected into the joint. DIVISION OF RADIOLOGY [facility] * * *Final Report* * * DATE OF EXAM: Sep 23 2022 10:40AM [id number] - XR ASP/INJ HIP JT/BURSA RT / PROCEDURE REASON: Sacroiliitis (HCC) * * * * Physician Interpretation * * * * FLUOROSCOPICALLY GUIDED RIGHT SACROILIAC JOINT THERAPEUTIC INJECTION INDICATION: The patient is a 52 years year old Female who presented with Sacroiliitis (HCC) . CONSENT: The risks, benefits, treatment options, potential complications and personnel to be involved were discussed (including the instruments to be used, contrast and anesthesia administration) with the patient. All questions were answered and consent was obtained. The patient indicated willingness to proceed. GENERAL: a) Medication Reconciliation: The patient's medications and allergies were reviewed in the electronic medical record and reconciled to the proposed procedure/treatment. Pre-procedure Sign-in: Safety Checklist Performed Yes b) Positioning: The patient was placed Prone on the fluoroscopy table. c) The area was then sterilely prepped and draped. d) Time Out: A time out was performed immediately prior to procedure start with the nursing, anesthesia and interventional team, correctly identifying the patient name, date of , procedure, anatomy (including marking of site and side), patient position, procedure consent form, relevant diagnostic and radiology test results, antibiotic administration, safety precautions, and procedure-specific equipment needs. Procedure Start Time / Timeout Time: 10:36 AM e) Anesthesia Type: Local anesthesia: 2 mL 1% Nesacaine PROCEDURE: a) Procedure Details:A 22g spinal needle was inserted into the right sacroiliac joint. 1 ml Omnipaque 300 was injected to confirm intra-articular placement of needle. Contrast was observed to flow into the joint without significant resistance. 2 mL of injectate was administered into the joint . The needle was removed. Images were stored to the permanent digital archive documenting needle position. b) Injectate Contents: 1 mL Triamcinolone Acetonide (Kenalog) 40mg/ml 1 mL 0.5% Bupivacaine (Marcaine,Sensorcaine) c) Estimated Blood Loss: 0 mls d) Number and Type of Removed Specimens: N/A RADIATION DOSE Fluoroscopic Radiation Summary: Air Kerma: 5.4 mGy Fluoro time: 0:32 min:sec POST PROCEDURE: a) Hemostasis: Hemostasis was achieved using light manual compression. b) Sign-out: Communication Performed N/A c) Procedure End Time: 10:40 AM d) Conclusion: The patient was discharged from the radiology department in stable condition. COMPLICATIONS: a) Significant Patient Complication: None b) Complications during the procedure: None RESULTS:Medication was injected into the joint. IMPRESSION IMPRESSION: SUCCESSFUL FLUOROSCOPICALLY GUIDED THERAPEUTIC INJECTION OF THE RIGHT sacroiliac joint DESCRIBED ABOVE. Attending Radiologist: Dr. Shailesh Paredes MD Personnel Associate: Phuc Us MD - Fellow The procedure was performed by the the operating room assistant, and the attending radiologist was present for all critical and phillips portions of the procedure, and was immediately available to furnish services during the entire procedure. Cyber Operator[facility] Transcribe Date/Time: Sep 23 2022 12:32P Dictated by : PHUC US MD This examination was interpreted and the report reviewed and electronically signed by: SHAILESH PAREDES MD on Sep 23 2022 6:11PM EST [facility] Radiology Study observation (narrative) [facility] Guidance for injection of Hi pOrdered By: Ccf Provider on 09-23-2022 [facility] XR Lumbar spine 3 Viewson IMPRESSION: DEGENERATIVE CHANGE AND ALIGNMENT ABNORMALITIES DESCRIBED Cyber Operator: [facility] Transcribe Date/Time: Jun 04 2022 1:39P Dictated by : AUDELIA SAMUEL MD This examination was interpreted and the report reviewed and electronically signed by: AUDELIA SAMUEL MD on Jun 04 2022 1:44PM [facility] DIVISION OF RADIOLOGY * * *Final Report* * * DATE OF EXAM: Jun 03 2022 4:05PM WOX [id number] - XR LUMBAR 3V AP/LAT/L5-S1 / PROCEDURE REASON: Osteoporosis, unspecified osteoporosis type, unspecified pathological fracture p * * * * Physician Interpretation * * * * Examination: XR LUMBAR 3V AP/LAT/L5-S1 History: Osteoporosis, unspecified osteoporosis type, unspecified pathological fracture presence Osteoporosis with back tenderness, to screen for silent vertebral fractures Technique: XR LUMBAR 3V AP/LAT/L5-S1 Comparison: 05/27/2021 RESULT: 5 nonrib-bearing lumbar-type vertebrae. For numbering purposes, L4-5 is at the level of the iliac crests. Moderate L4-5 disc space narrowing. Mild posterior position of L2 on L3, L3 on L4 and L4 on L5. No fracture or focal bony abnormality. Normal lordosis. Mild spondylosis DIVISION OF RADIOLOGY Provider, Kimmie Kate - 06/04/2022 * * *Final Report* * * DATE OF EXAM: Jun 03 2022 4:05PM WOX 5228 - XR LUMBAR 3V AP/LAT/L5-S1 / PROCEDURE REASON: Osteoporosis, unspecified osteoporosis type, unspecified pathological fracture p * * * * Physician Interpretation * * * * Examination: XR LUMBAR 3V AP/LAT/L5-S1 History: Osteoporosis, unspecified osteoporosis type, unspecified pathological fracture presence Osteoporosis with back tenderness, to screen for silent vertebral fractures Technique: XR LUMBAR 3V AP/LAT/L5-S1 Comparison: 05/27/2021 RESULT: 5 nonrib-bearing lumbar-type vertebrae. For numbering purposes, L4-5 is at the level of the iliac crests. Moderate L4-5 disc space narrowing. Mild posterior position of L2 on L3, L3 on L4 and L4 on L5. No fracture or focal bony abnormality. Normal lordosis. Mild spondylosis IMPRESSION IMPRESSION: DEGENERATIVE CHANGE AND ALIGNMENT ABNORMALITIES DESCRIBED Cyber [facility] Transcribe Date/Time: Jun 04 2022 1:39P Dictated by : AUDELIA SAMUEL MD This examination was interpreted and the report reviewed and electronically signed by: AUDELIA SAMUEL MD on Jun 04 2022 1:44PM [facility] XR Thoracic spine AP and Lat [facility] 06-04-2022 IMPRESSION: MILD DEGENERATIVE CHANGE Cyber Operator: [facility] Transcribe Date/Time: Jun 04 2022 1:45P Dictated by : AUDELIA SAMUEL MD This examination was interpreted and the report reviewed and electronically signed by: AUDELIA SAMUEL MD on Jun 04 2022 1:47PM [facility] DIVISION OF RADIOLOGY * * *Final Report* * * DATE OF EXAM: Jun 03 2022 4:05PM WOX [id number] - XR THORACIC 2V AP/LAT / PROCEDURE REASON: Osteoporosis, unspecified osteoporosis type, unspecified pathological fracture p * * * * Physician Interpretation * * * * Examination: XR THORACIC 2V AP/LAT History: Osteoporosis, unspecified osteoporosis type, unspecified pathological fracture presence Osteoporosis with back tenderness, to screen for silent vertebral fractures Technique: XR THORACIC 2V AP/LAT Comparison: Chest x-ray of 02/01/2019 RESULT: Mild degenerative change. Normal thoracic kyphosis. No fracture or focal bony abnormality. Diffuse osteopenia. Disc spaces are maintained DIVISION OF RADIOLOGY Provider, Ratna Doug [facility] - 06/04/2022 * * *Final Report* * * DATE OF EXAM: Jun 03 2022 4:05PM WOX [id number] - XR THORACIC 2V AP/LAT / PROCEDURE REASON: Osteoporosis, unspecified osteoporosis type, unspecified pathological fracture p * * * * Physician Interpretation * * * * Examination: XR THORACIC 2V AP/LAT History: Osteoporosis, unspecified osteoporosis type, unspecified pathological fracture presence Osteoporosis with back tenderness, to screen for silent vertebral fractures Technique: XR THORACIC 2V AP/LAT Comparison: Chest x-ray of 02/01/2019 RESULT: Mild degenerative change. Normal thoracic kyphosis. No fracture or focal bony abnormality. Diffuse osteopenia. Disc spaces are maintained IMPRESSION IMPRESSION: MILD DEGENERATIVE CHANGE Cyber Operator: [facility] Transcribe Date/Time: Jun 04 2022 1:45P Dictated by : AUDELIA SAMUEL MD This examination was interpreted and the report reviewed and electronically signed by: AUDELIA SAMUEL MD on Jun 04 2022 1:47PM EST [facility] XR Thoracic spine AP and Lat eralOrdered By: [facility] Provider on 06-04-2022 [facility] No Panel Informationon 06-03 Radiology Study observation (narrative) [facility] MRI BREAST WO/W IVCON BILon 05-21-2022 MRI BREAST WO/W IVCON CORY * * *Final Report* * * DATE OF EXAM: May 21 2022 2:19PM [facility] 0773 - MRI BREAST WO/W IVCON CORY / PROCEDURE REASON: multiple diagnoses * * * * Physician Interpretation * * * * #[id number] - MRI BREAST WO/W IVCON CORY BREAST MRI OF BOTH BREASTS: 05/21/2022 HISTORY: Multiple Diagnoses; Patient at documented high risk for breast cancer (bilateral mastectomy and SLN biopsy on 08/18/2017 for invasive lobular carcinoma), here for screening. Implants were removed and replaced in March 2022. RESULT: Comparison is made to exams dated: 03/14/2021 ultrasound, 03/14/2021 ultrasound, 09/06/2020 ultrasound, 09/06/2020 ultrasound, 05/14/2020 ultrasound, and 07/15/2017 mammogram - [facility]. MRI images were obtained with a dedicated breast coil. The patient was studied using the dedicated breast coil in the 1.5 Alona scanner. Initial axial STIR imaging was carried out followed by axial T1-weighted GRE imaging both before and after IV administration of 10 ml of Dotarem. Subsequently, subtraction imaging and 3-D reconstruction were completed on an independent workstation. An additional 4 minute high resolution sequence was performed after the first two 1 minute post-contrast sequences. 3D image post-processing was performed on an independent workstation with attending physician supervision including creation of quantitative dynamic contrast uptake subtraction images and multiplanar reconstruction (MPR). FINDINGS: Bilateral background breast enhancement is minimal. Postoperative changes from bilateral mastectomies with prepectoral silicone implants. The implants are grossly intact. There is no suspicious mass or abnormal enhancement pattern in either breast. There are no abnormalities seen in the axillary nodes region. IMPRESSION: BENIGN FINDING Postoperative changes from bilateral mastectomies with prepectoral silicone implants. No MRI evidence of malignancy in either breast. Implant are grossly intact. The study was optimized for breast cancer dectection and implant integrity sequences were not performed. Follow-up with ACR/NCCN guidelines. The exam was reviewed by a staff physician. ely Kaufman M.D., M.D./annie:05/21/2022 16:13:44 Supervisor Screen Making(s): RT Kathi(R)(M), [facility] MRI BI-RADS: 2 Benign finding Multiple national specialty organizations have released breast cancer screening guidelines for women at average risk for developing breast cancer - guidelines that are based on both evidence and opinion, yet differ on when to start and how often to screen for breast cancer. With representation from Breast Imaging, Internal Medicine, Women's Health, Family Medicine, and Medical/Surgical Oncology, the [facility] has carefully reviewed the data and reached the following consensus: 1) All women should engage in shared decision-making with their providers to decide when to start and how often to screen; 2) All women should have the opportunity to start screening mammography at age 40; 3) For women ages 45-55, we recommend annual screening mammograms; 4) For women ages 55 and over, we support both the transition from an annual to a biennial interval if this aligns more with patient's values and preferences, or continuation with annual screening; 5) All women should discuss with their providers when to stop screening mammograms. Cyber Operator: Annie Transcribe Date/Time: May 21 2022 1:43P Dictated by : AIDA MOSES MD This examination was interpreted and the report reviewed and electronically signed by: SERGIO ABRAMS MD on May 21 2022 4:13PM EST [id number] [facility] MRI BREAST WO/W IVCON BILATo n 05-21-2022 [facility] CBC panel Auto (Bld)on 02-17 Erythrocyte distribution width (RBC) [Ratio] 13.6 % 11.5 - 15.0 % [facility] Hematocrit (Bld) [Volume fraction] 39.2 % 36.0 - 46.0 % [facility] Hemoglobin (Bld) [Mass/Vol] 12.8 g/dL 11.5 - 15.5 g/dL [facility] MCH (RBC) [Entitic mass] 29.8 pg 26.0 - 34.0 pg [facility] MCHC (RBC) [Mass/Vol] 32.7 g/dL 30.5 - 36.0 g/dL [facility] MCV (RBC) [Entitic vol] 91.4 fL 80.0 - 100.0 fL [facility] Nucleated RBC (Bld) [#/Vol] <0.01 k/uL [facility] Platelet mean volume (Bld) [Entitic vol] 12.6 fL 9.0 - 12.7 fL [facility] Platelets (Bld) [#/Vol] 186 10*3/uL 150 - 400 k/uL [facility] RBC (Bld) [#/Vol] 4.29 10*6/uL 3.90 - 5.20 m/uL [facility] WBC (Bld) [#/Vol] 5.49 10*3/uL 3.70 - 11.00 k/uL [facility] Comprehensive metabolic 2000 panelon 02-17-2022 Albumin [Mass/Vol] 4.5 g/dL 3.9 - 4.9 g/dL [facility] ALP [Catalytic activity/Vol] 50 U/L 34 - 123 U/L [facility] ALT [Catalytic activity/Vol] 12 U/L 7 - 38 U/L [facility] Anion gap [Moles/Vol] 8 mmol/L Low 9 - 18 mmol/L [facility] AST [Catalytic activity/Vol] 20 U/L 13 - 35 U/L [facility] Bilirubin [Mass/Vol] 0.3 mg/dL 0.2 - 1 .3 mg/dL [facility] Calcium [Mass/Vol] 9.3 mg/dL 8.5 - 10. 2 mg/dL [facility] Chloride [Moles/Vol] 104 mmol/L 97 - 10 5 mmol/L [facility] CO2 [Moles/Vol] 29 mmol/L 22 - 30 mmol/L [facility] Creatinine [Mass/Vol] 0.76 mg/dL 0.58 - 0.96 mg/dL [facility] Estimated Glomerular Filtration Rate 93 mL/min/1.73m >=60 mL/min/1.7 3m [facility] Glucose [Mass/Vol] 87 mg/dL 74 - 99 mg/dL [facility] Potassium [Moles/Vol] 4.5 mmol/L 3.7 - 5.1 mmol/L [facility] Protein [Mass/Vol] 6.7 g/dL 6.3 - 8.0 g/dL [facility] Sodium [Moles/Vol] 141 mmol/L 136 - 144 mmol/L [facility] Urea nitrogen [Mass/Vol] 11 mg/dL 7 - 21 mg/dL [facility] FERRITIN BLDon 02-17-2022 Ferritin [Mass/Vol] 224.0 ng/mL High 14.7 - 205.1 ng/mL [facility] Iron and Iron binding capaci ty panelon 02-17-2022 Iron [Mass/Vol] 104 ug/dL 41 - 186 ug/dL [facility] Iron binding capacity [Mass/Vol] 259 ug/dL 232 - 386 ug/dL [facility] Iron/TIBC [Molar ratio] 40.2 % 15.0 - 57.0 % [facility] Lipid 1996 panelon Cholesterol [Mass/Vol] 208 mg/dL High <200 mg/dL [facility] Cholesterol in HDL [Mass/Vol] 80 mg/dL >39 mg/dL [facility] Cholesterol in LDL [Mass/Vol] 113 mg/dL High <100 mg/dL [facility] Cholesterol in LDL/Cholesterol in HDL [Mass ratio] 1.41 {ratio} <2.54 [facility] Cholesterol in VLDL [Mass/Vol] 15 mg/dL <30 mg/dL [facility] Cholesterol non HDL [Mass/Vol] 128 mg/dL <130 mg/dL [facility] Cholesterol.total/Ch olesterol in HDL [Mass ratio] 2.60 {ratio} <5.10 [facility] Fasting Time 12 hrs [facility] Triglyceride [Mass/Vol] 73 mg/dL <150 mg/dL [facility] VITAMIN D 25 HYDROXYon 02-17 25-hydroxyvitamin D3 [Mass/Vol] 70.6 ng/mL 31.0 - 80.0 ng/mL [facility] ANES POSTPROC EVALon 022 ANES POSTPROC EVAL HNO ID: [id number] Author: Milo Bae III, MD Service: Anesthesiology Author Type: Anesthesiologist Type: Anesthesia Postprocedure Evaluation Filed: 01/09/2022 1:04 PM Note Text: POST ANESTHESIA EVALUATION NOTE : 1970 Procedure Summary Date: 01/09/22 Room / Location: [place] [address] / [facility] Anesthesia Start: 936 Anesthesia Stop: 1148 Procedure: ARTHROSCOPY HIP W/ LABRAL REPAIR (Right Hip) Diagnosis: Tear of right acetabular labrum, subsequent encounter Surgeons: Renan Paige MD Responsible Provider: Milo Bae III, MD Anesthesia Type: general ASA Status: 2 Anesthesia Type: general Airway Type: ETT Last Vitals Vitals Value Taken Time BP 101/64 01/09/22 1230 Temp 36.1 ?C (96.9 ?F) 01/09/22 1230 HR SpO2 55 01/09/22 1230 Resp 12 01/09/22 1230 SpO2 100 % 01/09/22 1230 Vitals shown include unvalidated device data. Post Anesthesia Patient Status Patient Evaluation: PACU. PACU/ICU Patient Condition: stable. Anticipated Disposition: phase 2 then home. Neurological Status: aware and responsive. Pulmonary Status: breathing comfortably on room air Airway Control: returned to baseline unsupported. Cardiovascular Status: stable. Pain Management: satisfactory to patient - multimodal analgesia pain management approach Postoperative Hydration: acceptable. Intraoperative Events: no significant anesthesia events Post Operative Nausea/Vomiting Status: no significant post operative nausea or vomiting Anesthetic Observations: Recommendation: continue current plan of care. Anesthesia Observations No Documentation SIGNATURE: Milo Bae MD PATIENT NAME: Greyson Rojas DATE: January 09, 2022 TIME: 1:04 PM CSN: [id number] [facility] ANES PRE-OPon 01-09-2022 ANES PRE-OP HNO ID: [id number] Author: Milo Bae III, MD Service: Anesthesiology Author Type: Anesthesiologist Type: Anesthesia Preprocedure Evaluation Filed: 01/09/2022 8:57 AM Note Text: ANESTHESIOLOGY DAY OF SURGERY NOTE : 1970 Procedure Information Date/Time: 01/09/22 1000 Procedure: ARTHROSCOPY HIP W/ LABRAL REPAIR (Right Hip) - 7:30am X-Ray [facility]: [facility] Surgeons: Renan Paige MD Estimated body mass index is 21.79 kg/m? as calculated from the following: Height as of this encounter: 160 cm (5' 3). Weight as of this encounter: 55.8 kg (123 lb). Most recent hematocrit and potassium results: Hematocrit 40.0 12/16/2021 Potassium 4.2 12/16/2021 Relevant Problems GI (+) Gastroesophageal reflux disease with esophagitis without hemorrhage NEURO-PSYCH (+) History of breast cancer (+) New daily persistent headache I - PHYSICAL EVALUATION AIRWAY Patient intubated: No. Tracheostomy tube not present Mallampati: I. TM distance: >3 FB. Neck ROM: full ROM without neurological symptoms. Mouth opening: adequate. Short neck: no. Thick neck: no DENTAL Dental findings: teeth intact. Additional exam findings: yes. CARDIOVASCULAR Normal cardiovascular observations. PULMONARY Normal pulmonary observations. II - ANESTHESIA PLAN ASA Score: 2 Anesthetic Plan: general Airway type: ETT The patient is not a current smoker. NPO Status: adequate Beta Nelly Administration of chronic beta nelly medication not planned. Monitoring plan: standard ASA. Postoperative analgesic plan: multimodal analgesia. Informed Consent Anesthetic risks, benefits, alternatives, personnel and consent discussed: yes. Patient / Responsible Libertarian agrees to proceed: yes Patient / Surrogate agrees to blood products: blood products not planned DNR status not reviewed with patient and/or family prior to surgery. Significant changes in the patient condition since the History and Physical, not otherwise documented in primary service progress note: no. Potential Anesthesia issues that may suggest increased risk of complications or contraindication to planned procedure: none. Vitals Value Taken Time BP 105/71 01/09/22827 Pulse 69 01/09/22827 Resp 14 01/09/22827 Temp 36.8 ?C (98.2 ?F) 01/09/22827 SpO2 100 % 01/09/22827 Facility-Administered Medications as of 01/09/2022 Medication Dose Route Frequency - lactated ringers iv infusion 5-30 mL/hr INTRAVENOUS CONTINUOUS - ceFAZolin iv piggyback 2 g in D5W (iso-osmotic) 100 mL (ANCEF) 2 g INTRAVENOUS Pre-Op Once - [COMPLETED] acetaminophen 1,000 mg tab(s) (TYLENOL) 1,000 mg ORAL Pre-Op Once - [COMPLETED] diazePAM 5 mg tab(s) (VALIUM) 5 mg ORAL Pre-Op Once Outpatient Medications as of 01/09/2022 Medication Sig - aspirin, enteric coated (ADULT LOW DOSE ASPIRIN) 81 mg EC tablet Take 1 tablet by mouth daily with breakfast for 21 days. - HYDROcodone-acetaminophen (NORCO) 5-325 mg per tablet Take 1 tablet by mouth every 6 hours as needed for pain for up to 4 days. Do not start before January 07, 2022. - methocarbamol (ROBAXIN) 500 mg tablet Take 1-2 tablets by mouth four times daily as needed (for muscle spasms or pain). - naproxen (NAPROSYN) 500 mg tablet Take 1 tablet by mouth twice daily with meals for 21 days. - ondansetron orally disintegrating (ZOFRAN ODT) 4 mg disintegrating tablet Take 1 tablet by mouth every 8 hours as needed for nausea/vomiting. - acetaminophen (ACETAMINOPHEN EXTRA STRENGTH) 500 mg tablet Take 1 tablet by mouth every 6 hours as needed for pain. - Lactobacillus acidophilus (PROBIOTIC ORAL) Take by mouth. - Ascorbic Acid 500 mg cpER Take by mouth. - cholecalciferol (VITAMIN D3) 1,000 unit tab tablet Take by mouth. - docusate sodium (COLACE) 100 mg capsule Take by mouth. - turmeric-turmeric root extract 450-50 mg cap Take by mouth. - venlafaxine ER (EFFEXOR XR) 37.5 mg 24 hr capsule TAKE 1 CAPSULE ONCE DAILY - tamoxifen (NOLVADEX) 20 mg tablet Take 1 tablet (20 mg) by mouth once daily. - mecobalamin (B12 ACTIVE ORAL) Take 1 tablet by mouth once daily. - triamcinolone acetonide (NASACORT) 55 mcg nasal inhaler Use 2 Sprays in the nose once daily. - IRON, FERROUS SULFATE, ORAL Take by mouth once daily. - CALCIUM CARBONATE/VITAMIN D3 (VITAMIN D-3 ORAL) Take by mouth twice daily. - Evening [place] [employer] (EVENING PRIMROSE) 500 mg cap Take 500 mg by mouth once daily. I have interviewed and examined the patient. I have reviewed the medical record and/or the pre-anesthesia evaluation, pertinent labs, and test results. This contains updated information obtained within 48 hours of Surgery/Procedure. SIGNATURE: Milo Bae MD PATIENT NAME: Greyson Rojas DATE: January 09, 2022 TIME: 8:56 AM CSN: [id number] [facility] BRIEF OP NOTon 01-09-2022 BRIEF OP NOT HNO ID: [id number] Author: Jamal Perkins MD Service: ? Author Type: Fellow Type: Brief Op Note Filed: 01/09/2022 11:32 AM Note Text: BRIEF OP NOTE LOG ID: [id number] Surgery/Procedure Date: 01/09/2022 Incision/Procedure Start Time: 10:07 AM Incision Close/Procedure End Time: 11:27 AM Surgeon(s)/Proceduralist(s ) and Personnel Associate(s): Surgeon(s) and Role: * Renan Paige MD - Primary * Jamal Perkins MD - Fellow Procedure(s): R hip scope, labral repair, femoroplasty Anesthesia: General Findings: LILLIANA, labral tear Estimated Blood Loss: 0 ml Specimens: none Complications: None Pre-Op/Pre-Procedure Diagnosis: labral tear Post-Op/Post-Procedure Diagnosis: Same SIGNATURE: Jamal Perkins MD PATIENT NAME: Greyson Rojas DATE: January 09, 2022 TIME: 11:32 AM PAGER/CONTACT #: [phone] [facility] HISTORY PHYSICALon HISTORY PHYSICAL HNO ID: [id number] Author: Renan Paige MD Service: Orthopaedic Surgery Author Type: Physician Type: HANDP Filed: 01/09/2022 9:38 AM Note Text: UPDATED HISTORY AND PHYSICAL EXAMINATION SERVICE DATE: 01/09/2022 SERVICE TIME: 929 PHYSICAL EXAM MUST BE COMPLETED ON ADMISSION The History and Physical (completed in the past 30 days) has been reviewed and the patient has been examined. The contents accurately reflect the patient's condition with the following additions or revisions since the HANDP was completed. Examination indicates no changes. This HANDP can be found in the Electronic Medical Record dated 12/16/21. SIGNATURE: Renan Paige MD PATIENT NAME: Greyson Rojas DATE: January 09, 2022 TIME: 9:38 AM Normal [facility] OPERATIVE NOon 01-09-2022 OPERATIVE NO HNO ID: [id number] Author: Renan Paige MD Service: Orthopaedic Surgery Author Type: Physician Type: Operative Report Filed: 01/09/2022 11:42 AM Note Text: [facility] Operative Report ORIGINATOR: Renan Paige MD Greyson Rojas ACCTNUM: SERVICE: ORTHO LOCATION: [place] [id number] ATTENDING PHYSICIAN: Renan Paige MD DATE OF PROCEDURE: January 09, 2022 SURGEON: Renan Paige MD UPPERS EDGE BURNISHER: Jamal Perkins MD PREOPERATIVE DIAGNOSIS: Right hip acetabular labral tear S73.191A Right hip femoroacetabular impingement M25.851 Right pain in joint, pelvic region and thigh M25.551 POSTOPERATIVE DIAGNOSIS: Right hip acetabular labral tear S73.191A Right hip femoroacetabular impingement M25.851 Right pain in joint, pelvic region and thigh M25.551 OPERATION: 1. right hip arthroscopy. 2. Acetabuloplasty CPT 02919 3. Labral repair. CPT 11655 4. Femoroplasty. CPT 83723 5. Capsular Closure ANESTHESIA: General LOCATION: [facility] [place]. OPERATIVE INDICATIONS: The patient is a pleasant 51 year old, female with recurrent right hip/ groin complaints not amenable to conservative treatment. Exacerbating factors: prolonged sitting, ADL's, pivoting/ lateral movements, activities requiring hip flexion greater than 90 degrees Correlating physical exam findings, including positive anterior impingement and RUMA tests, with her imaging it was felt that she had a right hip labral tear with impingement. MRI: right acetabular labral tear Radiographs: maintained joint spaces Tonnis grade: 0 We discussed treatment options both surgical and nonsurgical. We discussed the expectations, risks, benefits, alternatives of the above mentioned procedure. she voiced understanding and then wished to proceed. DESCRIPTION OF OPERATION: The patient was brought to [facility] operative suite 2 on January 09, 2022, after marking the appropriate surgical extremity in the preoperative holding area. Brought in the operative suite, placed on the operative table, and induced under general anesthesia. she was placed distally on the postless pink pad system. Both feet were secured in traction boots. The right upper extremity was placed across the chest. Care was taken to pad the ulnar nerve. Under fluoroscopic guidance and complete muscle relaxation, right hip was distracted. The lateral aspect of the greater trochanter was prepped with Betadine. The vacuum suction seal was then removed from the joint with an 18-gauge spinal needle. The hip was then reduced and then prepped and draped in usual sterile fashion. After appropriate surgical time-out including all members of the surgical team, confirming the site and extremity, ensuring administrative receptionist of 2gm of IV Ancef, the hip was again distracted. The standard anterolateral and mid anterior portal were created, the guide wire was broken on starting the anterolateral portal, and was easily removed under fluoroscopic guidance. Exam of the hip joint revealed an anterosuperior labral tear from the 12 position on the clock face over to 3. The deep anterior wall, dome, posterior wall, posterior labrum, femoral head, ligamentum teres were intact. An interportal cut capsulotomy was performed. A labral takedown was performed in the area of tear. We exposed 2 mm of acetabular bone by 2.2 cm in length. We then used the 5.0 mm rebekah to perform the acetabuloplasty. Once this was completed, 3 1.8 mm Knotless Fibertak anchors were placed. Simple suture configuration was employed and the labrum was secured down to the prepared bone in a very stable fashion. Once this was completed, repeat exam of the joint revealed no further chondral changes. The hip was then reduced at 42 minutes. Labral seal was restored upon the reduction of the hip. The head-neck junction was identified distally after extending to a T capsulotomy. The loss of head/neck junction offset was easily identifiable. A 5.0 mm rebekah was used to perform the femoroplasty. We used live fluoroscopic views in multiple hip flexion angles and direct visualization to ensure adequate, but not over resection from 12 to 5 on the clockface, ensuring good contour from the lateral epiphyseal vessels to the medial synovial fold. All loose bony debris was debrided from the joint. Capsular closure was then performed with 4 #2 Ultrabraid sutures. This reduced the iliofemoral ligament and capsule in a very stable fashion. All excess fluid was removed. The hip was injected with a cocktail of 20 mL of 0.5% ropivacaine and 2 mg of Duramorph for postoperative analgesia. The arthroscopic instruments were then removed. The wound was then closed with interrupted 3-0 Prolene, with a 3-0 Monocryl deep for the mid anterior portal as well, followed by Steri-Strips and sterile dressing. The patient was then awakened from general anesthesia and taken to PACU in stable condition. COMPLICATIONS: N (more content not included)... [facility] XR Pelvis and Hip - right AP and Lateral frogon 01-09-2022 IMPRESSION: Normal right hip. Cyber Operator: [facility] Transcribe Date/Time: Jan 09 2022 8:32A Dictated by : ALIYA MARIE MD This examination was interpreted and the report reviewed and electronically signed by: ALIYA MARIE MD on Jan 09 2022 8:35AM EST [email or web address] E_DIVISION OF RADIOLOGY * * *Final Report* * * DATE OF EXAM: Jan 09 2022 7:43AM SHX [id number] - XR HIP 3V PELV+ AP/LAT RT / PROCEDURE REASON: Tear of right acetabular labrum, subsequent encounter * * * * Physician Interpretation * * * * HISTORY: Tear of right acetabular labrum, subsequent encounter . TECHNIQUE: XR HIP 3V PELV+ AP/LAT RT Laterality: RIGHT Number of different views (projections): 3 COMPARISON: Radiographs dated 05/27/2021 and MRI dated 11/04/2021 RESULT: There is no acute fracture or dislocation. The joint spaces are preserved. No other significant abnormality. [email or web address] E_DIVISION OF RADIOLOGY Provider, Kimmie Kate - 01/09/2022 * * *Final Report* * * DATE OF EXAM: Jan 09 2022 7:43AM SHX [id number] - XR HIP 3V PELV+ AP/LAT RT / PROCEDURE REASON: Tear of right acetabular labrum, subsequent encounter * * * * Physician Interpretation * * * * HISTORY: Tear of right acetabular labrum, subsequent encounter . TECHNIQUE: XR HIP 3V PELV+ AP/LAT RT Laterality: RIGHT Number of different views (projections): 3 COMPARISON: Radiographs dated 05/27/2021 and MRI dated 11/04/2021 RESULT: There is no acute fracture or dislocation. The joint spaces are preserved. No other significant abnormality. IMPRESSION IMPRESSION: Normal right hip. Cyber Operator: PSCB Transcribe Date/Time: Jan 09 2022 8:32A Dictated by : ALIYA MARIE MD This examination was interpreted and the report reviewed and electronically signed by: ALIYA MARIE MD on Jan 09 2022 8:35AM EST [facility] Radiology Study observation (narrative) [facility] XR Pelvis and Hip - right AP and Lateral frogOrdered By: Ccf Provider on 01-09-2022 [facility] CBC W Auto Differential pane l (Bld)on 12-16-2021 Abs Immature Gran <0.03 <0.10 k/uL [facility] Basophils (Bld) [#/Vol] 0.03 10*3/uL <0.11 k/uL [facility] Basophils/100 WBC (Bld) 0.5 % [facility] Differential cell count method Nom (Bld) Auto [facility] Eosinophils (Bld) [#/Vol] 0.08 10*3/uL <0.46 k/uL [facility] Eosinophils/100 WBC (Bld) 1.3 % [facility] Erythrocyte distribution width (RBC) [Ratio] 13.3 % 11.5 - 15.0 % [facility] Hematocrit (Bld) [Volume fraction] 40.0 % 36.0 - 46.0 % [facility] Hemoglobin (Bld) [Mass/Vol] 13.1 g/dL 11.5 - 15.5 g/dL [facility] Immature Gran % 0.2 % [facility] Lymphocytes (Bld) [#/Vol] 2.56 10*3/uL 1.00 - 4.00 k/uL [facility] Lymphocytes/100 WBC (Bld) 42.6 % [facility] MCH (RBC) [Entitic mass] 29.4 pg 26.0 - 34.0 pg [facility] MCHC (RBC) [Mass/Vol] 32.8 g/dL 30.5 - 36.0 g/dL [facility] MCV (RBC) [Entitic vol] 89.7 fL 80.0 - 100.0 fL [facility] Monocytes (Bld) [#/Vol] 0.65 10*3/uL <0.87 k/uL [facility] Monocytes/100 WBC (Bld) 10.8 % [facility] Neutrophils (Bld) [#/Vol] 2.68 10*3/uL 1.45 - 7.50 k/uL [facility] Neutrophils/100 WBC (Bld) 44.6 % [facility] Nucleated RBC (Bld) [#/Vol] 10*3/uL <0.01 k/uL [facility] Nucleated RBC/100 WBC (Bld) [Ratio] 0.0 /100 WBC [facility] Platelet mean volume (Bld) [Entitic vol] 11.7 fL 9.0 - 12.7 fL [facility] Platelets (Bld) [#/Vol] 171 10*3/uL 150 - 400 k/uL [facility] RBC (Bld) [#/Vol] 4.46 10*6/uL 3.90 - 5.20 m/uL [facility] WBC (Bld) [#/Vol] 6.01 10*3/uL 3.70 - 11.00 k/uL [facility] Comprehensive metabolic 2000 panelon 12-16-2021 Albumin [Mass/Vol] 4.5 g/dL 3.9 - 4.9 g/dL [facility] ALP [Catalytic activity/Vol] 42 U/L 34 - 123 U/L [facility] ALT [Catalytic activity/Vol] 14 U/L 7 - 38 U/L [facility] Anion gap [Moles/Vol] 13 mmol/L 9 - 18 mmol/L [facility] AST [Catalytic activity/Vol] 21 U/L 13 - 35 U/L [facility] Bilirubin [Mass/Vol] mg/dL Low 0.2 - 1 .3 mg/dL [facility] Calcium [Mass/Vol] 8.8 mg/dL 8.5 - 10. 2 mg/dL [facility] Chloride [Moles/Vol] 102 mmol/L 97 - 10 5 mmol/L [facility] CO2 [Moles/Vol] 25 mmol/L 22 - 30 mmol/L [facility] Creatinine [Mass/Vol] 0.73 mg/dL 0.58 - 0.96 mg/dL [facility] Estimated Glomerular Filtration Rate 98 mL/min/1.73m >=60 mL/min/1.7 3m [facility] Glucose [Mass/Vol] 95 mg/dL 74 - 99 mg/dL [facility] Potassium [Moles/Vol] 4.2 mmol/L 3.7 - 5.1 mmol/L [facility] Protein [Mass/Vol] 7.1 g/dL 6.3 - 8.0 g/dL [facility] Sodium [Moles/Vol] 140 mmol/L 136 - 144 mmol/L [facility] Urea nitrogen [Mass/Vol] 12 mg/dL 7 - 21 mg/dL [facility] EGD - THERAPEUTIC, EUS, OR T UBE INTERVENTIONSon 11-05-2021 [facility] No Panel Informationon 11-04 [facility] Clinical Summary: Pau jackson 10-24-2021 25 Plastics Invalid Interpretation Code [facility] Work Phone: Clinical Summary: Scanned Hi story Summaryon 10-22-2021 Data entered by patient exercise frequency 4 days per week Invalid Interpretation Code [facility] Work Phone: Data entered by patient exercise type walking, strength training, yoga Invalid Interpretation Code [facility] Work Phone: Data entered by patient, additional medical problems Low pressure on my brain Invalid Interpretation Code [facility] Work Phone: data entered by patient, alcohol (ethanol or ETOH) use No Invalid Interpretation Code [facility] Work Phone: Data entered by patient, allergy list Penicillin I don't have any Environmental Allergies I don't have any Food Allergies Invalid Interpretation Code [facility] Work Phone: data entered by patient, drug (of abuse) use No Invalid Interpretation Code [facility] Work Phone: data entered by patient, Employer Name employed Invalid Interpretation Code [facility] Work Phone: data entered by patient, exercise history Yes Invalid Interpretation Code [facility] Work Phone: data entered by patient, father's medical history Arthritis Diabetes - insulin dependent Heart disease Obesity Invalid Interpretation Code [facility] Work Phone: Data entered by patient, history of past surgeries Breast reconstruction Foot surgery Hysterectomy Mastectomy Invalid Interpretation Code [facility] Work Phone: Data entered by patient, medication list omeprazole-Unknown Kisizskp-9-Rxvr daily tamoxifen citrate-20 mg-1-Once daily effexor xr-37.5 mg-1-Once daily Calcuim-600 mg-2-Once daily Iron-29 mg-2-Once daily vitamin c-500 mg-1-Once Daily vitamin d-1000 iu-2-Once daily C19-Dnpiibo Etyqiwbt-8-Ujfp daily Colace-100 mg-2-Once daily miralax-1 capful-Unknown Dosage-Once daily Evening primrose oil-500 mg-1-Once daily Invalid Interpretation Code [facility] Work Phone: data entered by patient, mother's medical history Arthritis Cancer Diabetes - non-insulin dependent High blood pressure Melanoma Obesity Osteoporosis Invalid Interpretation Code [facility] Work Phone: data entered by patient, past medical history Anemia Anxiety Arthritis Cancer Fractures GERD Osteopenia Invalid Interpretation Code [facility] Work Phone: data entered by patient, 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, current smoker never smoker Invalid Interpretation Code [facility] Work Phone: data entered by patient, 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, marital status Invalid Interpretation Code [facility] Work Phone: data entered by patient, 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, 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 Invalid Interpretation Code [facility] Work Phone: father of patient is alive or Alive Invalid Interpretation Code [facility] Work Phone: Housing Type: apartment, house, detention, trailer, none house Invalid Interpretation Code [facility] Work Phone: housing unit size (asthma environmental history, housing) (from single family to don't know) 3 floors Invalid Interpretation Code [facility] Work Phone: medical history of patient's brother(s) Arthritis High blood pressure Invalid Interpretation Code [facility] Work Phone: medical history of patient's sister Arthritis Diabetes - non-insulin dependent High blood pressure Obesity Osteoporosis Invalid Interpretation Code [facility] Work Phone: mother of patient is alive or Alive Invalid Interpretation Code [facility] Work Phone: Number of dependent children No Invalid Interpretation Code [facility] Work Phone: Web entered surgical history comments I???ve had bladder surgery in which a bladder sling was put in. I also had a rectocele repair done. Invalid Interpretation Code [facility] Work Phone: No Panel Informationon 05-27 IMPRESSION: 1. Mild degenerative changes in the lumbar spine. 2. No radiographic evidence of sacroiliitis. 3. No radiographic evidence of acute osseous abnormality in the right hip. Cyber Operator: ROD Transcribe Date/Time: May 27 2021 12:42P Dictated by : LEDY PECK MD This examination was interpreted and the report reviewed and electronically signed by: LEDY PECK MD on May 27 2021 12:45PM [facility] DIVISION OF RADIOLOGY Radiology Study observation (narrative) [facility] No Panel InformationOrdered By: Ccf Provider on 05-27-2021 [facility] XR Lumbar spine 3 Viewson * * *Final Report* * * DATE OF EXAM: May 27 2021 9:21AM WOX [id number] - XR LUMBAR 3V AP/LAT/L5-S1 / PROCEDURE REASON: multiple diagnoses * * * * Physician Interpretation * * * * CLINICAL INDICATION: Right-sided pain TECHNIQUE: 3 view radiographic study of the lumbar spine. 2 view radiographic study of the sacroiliac joints. AP radiograph of the pelvis and AP/frog-leg lateral radiographs of the right hip. COMPARISON: Correlation made to MRI lumbar spine dated November 15, 2018 FINDINGS: Pelvis/right hip: No acute fracture or dislocation identified. Hip joint spaces appear preserved. Sacroiliac joints: Bilateral sacroiliac joints appear symmetric and intact. Lumbar spine: For the purposes of this report, L4/5 is at the level of the iliac crest. There is preservation of vertebral body height. Mild disc space narrowing with small marginal osteophyte formation at L4/L5. Nonobstructive bowel gas pattern with moderately large stool burden. Phleboliths in the pelvis. DIVISION OF RADIOLOGY Provider, [facility] - 05/27/2021 * * *Final Report* * * DATE OF EXAM: May 27 2021 9:21AM WOX [id number] - XR LUMBAR 3V AP/LAT/L5-S1 / PROCEDURE REASON: multiple diagnoses * * * * Physician Interpretation * * * * CLINICAL INDICATION: Right-sided pain TECHNIQUE: 3 view radiographic study of the lumbar spine. 2 view radiographic study of the sacroiliac joints. AP radiograph of the pelvis and AP/frog-leg lateral radiographs of the right hip. COMPARISON: Correlation made to MRI lumbar spine dated November 15, 2018 FINDINGS: Pelvis/right hip: No acute fracture or dislocation identified. Hip joint spaces appear preserved. Sacroiliac joints: Bilateral sacroiliac joints appear symmetric and intact. Lumbar spine: For the purposes of this report, L4/5 is at the level of the iliac crest. There is preservation of vertebral body height. Mild disc space narrowing with small marginal osteophyte formation at L4/L5. Nonobstructive bowel gas pattern with moderately large stool burden. Phleboliths in the pelvis. IMPRESSION IMPRESSION: 1. Mild degenerative changes in the lumbar spine. 2. No radiographic evidence of sacroiliitis. 3. No radiographic evidence of acute osseous abnormality in the right hip. Cyber Operator: ROD Transcribe Date/Time: May 27 2021 12:42P Dictated by : LEDY PECK MD This examination was interpreted and the report reviewed and electronically signed by: LEDY PECK MD on May 27 2021 12:45PM [facility] XR Pelvis and Hip - right AP and Lateral frogon 05-27-2021 * * *Final Report* * * DATE OF EXAM: May 27 2021 9:21AM WOX 5352 - XR HIP 3V PELV+ AP/LAT RT / PROCEDURE REASON: multiple diagnoses * * * * Physician Interpretation * * * * CLINICAL INDICATION: Right-sided pain TECHNIQUE: 3 view radiographic study of the lumbar spine. 2 view radiographic study of the sacroiliac joints. AP radiograph of the pelvis and AP/frog-leg lateral radiographs of the right hip. COMPARISON: Correlation made to MRI lumbar spine dated November 15, 2018 FINDINGS: Pelvis/right hip: No acute fracture or dislocation identified. Hip joint spaces appear preserved. Sacroiliac joints: Bilateral sacroiliac joints appear symmetric and intact. Lumbar spine: For the purposes of this report, L4/5 is at the level of the iliac crest. There is preservation of vertebral body height. Mild disc space narrowing with small marginal osteophyte formation at L4/L5. Nonobstructive bowel gas pattern with moderately large stool burden. Phleboliths in the pelvis. DIVISION OF RADIOLOGY Provider, [facility] - 05/27/2021 * * *Final Report* * * DATE OF EXAM: May 27 2021 9:21AM WOX 5352 - XR HIP 3V PELV+ AP/LAT RT / PROCEDURE REASON: multiple diagnoses * * * * Physician Interpretation * * * * CLINICAL INDICATION: Right-sided pain TECHNIQUE: 3 view radiographic study of the lumbar spine. 2 view radiographic study of the sacroiliac joints. AP radiograph of the pelvis and AP/frog-leg lateral radiographs of the right hip. COMPARISON: Correlation made to MRI lumbar spine dated November 15, 2018 FINDINGS: Pelvis/right hip: No acute fracture or dislocation identified. Hip joint spaces appear preserved. Sacroiliac joints: Bilateral sacroiliac joints appear symmetric and intact. Lumbar spine: For the purposes of this report, L4/5 is at the level of the iliac crest. There is preservation of vertebral body height. Mild disc space narrowing with small marginal osteophyte formation at L4/L5. Nonobstructive bowel gas pattern with moderately large stool burden. Phleboliths in the pelvis. IMPRESSION IMPRESSION: 1. Mild degenerative changes in the lumbar spine. 2. No radiographic evidence of sacroiliitis. 3. No radiographic evidence of acute osseous abnormality in the right hip. Cyber Operator: [facility] Transcribe Date/Time: May 27 2021 12:42P Dictated by : LEDY PECK MD This examination was interpreted and the report reviewed and electronically signed by: LEDY PECK MD on May 27 2021 12:45PM [facility] XR Sacroiliac Joint Viewson 05-27-2021 * * *Final Report* * * DATE OF EXAM: May 27 2021 9:21AM WOX 5245 - XR SI JTS 2V AP PELV/COLIN / PROCEDURE REASON: multiple diagnoses * * * * Physician Interpretation * * * * CLINICAL INDICATION: Right-sided pain TECHNIQUE: 3 view radiographic study of the lumbar spine. 2 view radiographic study of the sacroiliac joints. AP radiograph of the pelvis and AP/frog-leg lateral radiographs of the right hip. COMPARISON: Correlation made to MRI lumbar spine dated November 15, 2018 FINDINGS: Pelvis/right hip: No acute fracture or dislocation identified. Hip joint spaces appear preserved. Sacroiliac joints: Bilateral sacroiliac joints appear symmetric and intact. Lumbar spine: For the purposes of this report, L4/5 is at the level of the iliac crest. There is preservation of vertebral body height. Mild disc space narrowing with small marginal osteophyte formation at L4/L5. Nonobstructive bowel gas pattern with moderately large stool burden. Phleboliths in the pelvis. DIVISION OF RADIOLOGY Provider, Kimmie Kate - 05/27/2021 * * *Final Report* * * DATE OF EXAM: May 27 2021 9:21AM WOX 5245 - XR SI JTS 2V AP PELV/COLIN / PROCEDURE REASON: multiple diagnoses * * * * Physician Interpretation * * * * CLINICAL INDICATION: Right-sided pain TECHNIQUE: 3 view radiographic study of the lumbar spine. 2 view radiographic study of the sacroiliac joints. AP radiograph of the pelvis and AP/frog-leg lateral radiographs of the right hip. COMPARISON: Correlation made to MRI lumbar spine dated November 15, 2018 FINDINGS: Pelvis/right hip: No acute fracture or dislocation identified. Hip joint spaces appear preserved. Sacroiliac joints: Bilateral sacroiliac joints appear symmetric and intact. Lumbar spine: For the purposes of this report, L4/5 is at the level of the iliac crest. There is preservation of vertebral body height. Mild disc space narrowing with small marginal osteophyte formation at L4/L5. Nonobstructive bowel gas pattern with moderately large stool burden. Phleboliths in the pelvis. IMPRESSION IMPRESSION: 1. Mild degenerative changes in the lumbar spine. 2. No radiographic evidence of sacroiliitis. 3. No radiographic evidence of acute osseous abnormality in the right hip. Cyber Operator: ROD Transcribe Date/Time: May 27 2021 12:42P Dictated by : LEDY PECK MD This examination was interpreted and the report reviewed and electronically signed by: LEDY PECK MD on May 27 2021 12:45PM [facility] [employer] LTon 09-06 [facility] [employer] Final Report DATE OF EXAM: Sep 06 2020 8:32AM AAW [id number] - [facility] [employer] / PROCEDURE REASON: Lump or mass in breast Physician Interpretation #[id number] - [facility] [employer] LIMITED ULTRASOUND OF LEFT BREAST: 09/06/2020 HISTORY: Lump Or Mass In Breast\ Followup abnormal ultrasound. RESULT: Comparison is made to exams dated: 03/06/2020 ultrasound, 03/06/2020 ultrasound, 08/31/2019 ultrasound, 08/31/2019 ultrasound, 02/23/2019 ultrasound, and 02/23/2019 ultrasound - [facility]. Color flow and real-time ultrasound of the left breast 9 o'clock region were performed on the areas of interest. Sam scale images of the real-time examination were reviewed. The patient is status post mastectomy left breast. Left breast implant is present. There is a stable 0.9 cm x 0.2 cm x 0.5 cm oval mass with an indistinct margin within the skin of the left breast at 9 o'clock. This oval mass is isoechoic. Color flow imaging demonstrates that there is no vascularity present. IMPRESSION: PROBABLY BENIGN - SHORT TERM INTERVAL FOLLOW-UP RECOMMENDED The stable 0.9 cm x 0.2 cm x 0.5 cm oval mass within the skin of the left breast resembles fat necrosis and is probably benign. This was initially evaluated January 2019. The next exam will complete 2 years of follow up. A follow-up ultrasound in 6 months is recommended to demonstrate stability. Tyler borges/annie:09/06/2020 08:46:05 Supervisor Screen Making(s): Clara Vaughn RT, [facility] Ultrasound BI-RADS: 3 Probably benign finding - short term interval follow-up recommended Multiple national specialty organizations have released breast cancer screening guidelines for women at average risk for developing breast cancer - guidelines that are based on both evidence and opinion, yet differ on when to start and how often to screen for breast cancer. With representation from Breast Imaging, Internal Medicine, Women's Health, Family Medicine, and Medical/Surgical Oncology, the [facility] has carefully reviewed the data and reached the following consensus: 1) All women should engage in shared decision-making with their providers to decide when to start and how often to screen; 2) All women should have the opportunity to start screening mammography at age 40; 3) For women ages 45-55, we recommend annual screening mammograms; 4) For women ages 55 and over, we support both the transition from an annual to a biennial interval if this aligns more with patient's values and preferences, or continuation with annual screening; 5) All women should discuss with their providers when to stop screening mammograms. Cyber Operator: Annie Transcribe Date/Time: Sep 06 2020 8:09A Dictated by : TYLER PACKER MD This examination was interpreted and the report reviewed and electronically signed by: TYLER PACKER MD on Sep 06 2020 8:46AM EST Normal [facility] [employer] RTon 09-06 [facility] [employer] RT Final Report DATE OF EXAM: Sep 06 2020 8:32AM [id number] - [facility] [employer] RT / PROCEDURE REASON: Lump or mass in breast Physician Interpretation #[id number] - [facility] [employer] RT LIMITED ULTRASOUND OF RIGHT BREAST: 09/06/2020 HISTORY: Lump Or Mass In Breast\ Followup abnormal ultrasound. RESULT: Comparison is made to exams dated: 05/14/2020 ultrasound, 03/06/2020 ultrasound, 03/06/2020 ultrasound, 08/31/2019 ultrasound, 02/23/2019 ultrasound, and 02/10/2018 ultrasound - [facility]. Color flow and real-time ultrasound of the right breast 3 o'clock region were performed on the areas of interest. Sam scale images of the real-time examination were reviewed. The patient is status post mastectomy right breast. Right breast implant is present. There is a stable 1.3 cm x 0.3 cm x 0.6 cm oval mass with an indistinct margin within the skin of the right breast at 3 o'clock. This oval mass is isoechoic. Color flow imaging demonstrates that there is no vascularity present. IMPRESSION: PROBABLY BENIGN - SHORT TERM INTERVAL FOLLOW-UP RECOMMENDED The stable 1.3 cm x 0.3 cm x 0.6 cm oval mass within the skin of the right breast resembles fat necrosis and is probably benign. This was initially evaluated January 2019. The next exam will complete 2 years of follow up. A follow-up ultrasound in 6 months is recommended to demonstrate stability. Tyler borges/annie:09/06/2020 08:52:00 Supervisor Screen Making(s): RT Wilma, [facility] Ultrasound BI-RADS: 3 Probably benign finding - short term interval follow-up recommended Multiple national specialty organizations have released breast cancer screening guidelines for women at average risk for developing breast cancer - guidelines that are based on both evidence and opinion, yet differ on when to start and how often to screen for breast cancer. With representation from Breast Imaging, Internal Medicine, Women's Health, Family Medicine, and Medical/Surgical Oncology, the [facility] has carefully reviewed the data and reached the following consensus: 1) All women should engage in shared decision-making with their providers to decide when to start and how often to screen; 2) All women should have the opportunity to start screening mammography at age 40; 3) For women ages 45-55, we recommend annual screening mammograms; 4) For women ages 55 and over, we support both the transition from an annual to a biennial interval if this aligns more with patient's values and preferences, or continuation with annual screening; 5) All women should discuss with their providers when to stop screening mammograms. Cyber Operator: Annie Transcribe Date/Time: Sep 06 2020 7:57A Dictated by : TYLER PACKER MD This examination was interpreted and the report reviewed and electronically signed by: TYLER PACKER MD on Sep 06 2020 8:52AM EST Normal [facility] CR Foot Complete 3+ Views [facility] 05-14-2020 CR Foot Complete 3+ Views Right Patient Name: GREYSON ROJAS Diagnostic Radiology Exam Date/Time 05/11/2020 15:41:35 EDT Exam CR Foot Complete 3+ Views Right Ordering Physician RYLAND KELLY Accession Number [id number] CPT4 Codes 18249 () Reason For Exam Unspecified fracture of right foot, subsequent encounter for fracture with delayed healing Report RIGHT FOOT: CLINICAL INDICATION: Follow-up for surgery. TECHNIQUE: Weightbearing AP, Lat, Oblique COMPARISON: 05/13/2019 FINDINGS: Surgical change with prior hallux valgus repair with metallic screw is unchanged. There is no new fracture or dislocation. Subchondral cyst is noted along the lateral base of the first proximal phalanx without change. No bone lesion is identified. There is no soft tissue abnormality. IMPRESSION: Prior hallux valgus repair. No new abnormality. Report Dictated on Final Dictating Physician: MD JEFFERS JEFFREY Signed Date and Time: 05/14/2020 10:25 am Signed by: MD JEFFERS JEFFREY Transcribed Date and Time: 05/14/2020 10:26 Normal [facility] US BREAST LTD RTon 05-14 [facility] US BREAST LTD RT Final Report DATE OF EXAM: May 14 2020 1:27PM AAW Moshe - [facility] US BREAST LTD RT / PROCEDURE REASON: multiple diagnoses Physician Interpretation #[id number] - [facility] US BREAST LTD RT LIMITED ULTRASOUND OF RIGHT BREAST: 05/14/2020 HISTORY: Multiple Diagnoses\ Patient presents with right breast lump. RESULT: Comparison is made to exams dated: 03/06/2020 ultrasound, 02/23/2019 ultrasound, 02/10/2018 ultrasound, 07/20/2017 ultrasound biopsy, 07/20/2017 ultrasound biopsy, and 08/31/2019 ultrasound - [facility]. Real-time ultrasound of the right breast retroareolar was performed. Sam scale images of the real-time examination were reviewed. Right breast implant is present. No suspicious solid or cystic masses are seen along the central mastectomy scar to correlate with the reported palpable finding. IMPRESSION: BENIGN FINDING There is no sonographic evidence of malignancy. There is no abnormality seen in the right breast to correspond with the palpable abnormality central to the nipple, however, clinical correlation and clinical followup are recommended. Tyler borges/annie:05/14/2020 14:58:48 Supervisor Screen Making(s): Hiwot Block RDMS, [facility] Ultrasound BI-RADS: 2 Benign finding Multiple national specialty organizations have released breast cancer screening guidelines for women at average risk for developing breast cancer - guidelines that are based on both evidence and opinion, yet differ on when to start and how often to screen for breast cancer. With representation from Breast Imaging, Internal Medicine, Women's Health, Family Medicine, and Medical/Surgical Oncology, the [facility] has carefully reviewed the data and reached the following consensus: 1) All women should engage in shared decision-making with their providers to decide when to start and how often to screen; 2) All women should have the opportunity to start screening mammography at age 40; 3) For women ages 45-55, we recommend annual screening mammograms; 4) For women ages 55 and over, we support both the transition from an annual to a biennial interval if this aligns more with patient's values and preferences, or continuation with annual screening; 5) All women should discuss with their providers when to stop screening mammograms. Cyber Operator: Annie Transcribe Date/Time: May 14 2020 1:05P Dictated by : TYLER PACKER MD This examination was interpreted and the report reviewed and electronically signed by: TYLER PACKER MD on May 14 2020 2:58PM EST Normal [facility] CR Foot Complete 3+ Views [place] 06-27-2019 CR Foot Complete 3+ Views Left Patient Name: GREYSON ROJAS Diagnostic Radiology Exam Date/Time 06/24/2019 14:54:46 EST Exam CR Foot Complete 3+ Views Left Ordering Physician RYLAND KELLY Accession Number [id number] CPT4 Codes 02368 () Reason For Exam pain Report Indication: Left foot pain. AP, oblique and lateral views of the left foot. Fixation screw noted in the distal aspect of the first metatarsal. No acute fracture or dislocation. No bony destruction. Alignment is anatomic. IMPRESSION: No acute bony abnormality. Report Dictated on Final Dictating Physician: MD MERCADO LAURA Signed Date and Time: 06/27/2019 10:08 am Signed by: MD MERCADO LAURA Transcribed Date and Time: 06/27/2019 10:09 Normal [facility] XR FOOT RIGHT (MIN 3 VIEWS)o n 05-13-2019 Patient Name: GREYSON STERN ---Diagnostic Radiology--- Exam Date/Time 05/13/2019 13:35:00 EDT Exam CR Foot Complete 3+ Views Right Ordering Physician RYLAND KELLY Accession Number [id number] CPT4 Codes 29776 () Reason For Exam Delayed union of fx of right foot Report CLINICAL HISTORY: Follow up surgery. No current complaints. COMPARISON: None. Technique: AP, lateral, and oblique views were obtained of the right foot. FINDINGS: There is a single screw transfixing a fracture of the first metatarsal. There are also healing fractures involving the distal second and third metatarsals. The alignment is anatomic. No evidence of hardware failure. Joint spaces are unremarkable. No effusion is seen. The soft tissues are unremarkable. Impression: Healing fractures of the first, second, and third metatarsals in anatomic alignment. Report Dictated on --- Final --- Dictating Physician: MD EMERSON YUN ROBERT Signed Date and Time: 05/13/2019 2:15 pm Signed by: MD EMERSON YUN ROBERT Transcribed Date and Time: 05/13/2019 2:17 [facility] [place] Incoming Radiology Results From [facility] - 05/13/2019 2:17 PM EDT Patient Name: GREYSON ROJAS ---Diagnostic Radiology--- Exam Date/Time 05/13/2019 13:35:00 EDT Exam CR Foot Complete 3+ Views Right Ordering Physician RYLAND KELLY Accession Number [id number] CPT4 Codes 09023 () Reason For Exam Delayed union of fx of right foot Report CLINICAL HISTORY: Follow up surgery. No current complaints. COMPARISON: None. Technique: AP, lateral, and oblique views were obtained of the right foot. FINDINGS: There is a single screw transfixing a fracture of the first metatarsal. There are also healing fractures involving the distal second and third metatarsals. The alignment is anatomic. No evidence of hardware failure. Joint spaces are unremarkable. No effusion is seen. The soft tissues are unremarkable. Impression: Healing fractures of the first, second, and third metatarsals in anatomic alignment. Report Dictated on --- Final --- Dictating Physician: MD EMERSON YUN ROBERT Signed Date and Time: 05/13/2019 2:15 pm Signed by: MD EMERSON YUN ROBERT Transcribed Date and Time: 05/13/2019 2:17 [email or web address]-08-2017 PROGRESS HNO ID: [id number] thor: Tyler Chong: (none)Author Type: PhysicianType: Progress NotesFiled: 07/08/2017 6:18 PMNote Text:Request from Dr. Chaney to review outside imaging from [facility].FINDINGS :The following studies are submitted for interpretation:Bilateral diagnostic mammogram with tomosynthesis (06/04/2017) - Multiplebilateral oval masses are demonstrated bilaterally. In the RIGHT breastupper outer quadrant posterior depth, there is an irregularly marginatedmass with associated architectural distortion and calcifications. Ontomosynthesis, this is best seen on CC slice 24 and MLO slice 15. Biopsyclip in the right breast approximate 12:00 position is from remotestereotactic guided biopsy performed in 2008 with benign results. Nosignificant masses, calcifications, distortion, or other significantabnormalities are seen in the left breast mammographically.Bilateral breast ultrasound (06/03/2017) - Exam was performed forbilateral palpable findings and pain. Multiple benign simple cysts arepresent in the lower outer LEFT breast (from the 3 to 6 o'clock position)in a region of reported pain/palpable findings. The RIGHT breast,multiple suspicious masses are demonstrated at the 10:00 position 3 and 5cmfn, and 1 o'clock position 3 cmfn. These masses were subsequentlybiopsied with the following results:10:00 3 cmfn - Atypical lobular hyperplasia. (marked with a hydromark coilclip)10:00 5 cmfn - Nonspecific benign results including fibrocystic changesand ductal hyperplasia without associated atypia. (marked with a mammotomemammostar clip)1:00 5 cmfn - Atypical lobular hyperplasia. (marked with a mammotomemammostar clip)Post biopsy mammogram (08/12/2016) - Films are marked in PACS. Note theposterior most biopsy clip does not appear to be at the site, or ismigrated from the region of the questioned irregularly marginated masswith architectural distortion from the original diagnostic mammogram(06/04/2017)[facility] MRI (06/29/2017) - On limited review, there is a 2.1 x 1.5 x 2.6 cmirregular heterogeneously enhancing mass at the 11 o'clock position in theRIGHT breast with an associated likely small 0.5 cm satellite lesion.Post biopsy changes/biopsy tracts are seen at the sites of recentbenign/high risk benign biopsies. Signal artifact from biopsy clips arepresent in the lateral right breast without associated significantabnormal enhancement. A clip is not definitively visualized within thehighly suspicious mass at the 11 o'clock position, but is seen superiorand medial. No abnormalities are seen in the LEFT breast. No adenopathyis seen.RECOMMEND: Repeat right breast diagnostic mammogram (including ML viewfor clip placement) and right breast ultrasound (including evaluation ofthe right axilla) is recommended. This evaluation should includecharacterization of the highly suspicious mass seen by recent MRI at the11 o'clock position in order to confirm or refute that this mass has beenimaged and biopsied as reported by the outside institution, given the clipis not definitively identified within the mass. Biopsy/repeat biopsyshould be considered given the highly suspicious nature of the findings byrecent MRI and benign results to date. Surgical consult is recommendedfor newly diagnosed atypia.The patient will be contacted to schedule the recommended diagnosticimaging and is scheduled to see Dr. Chaney for surgical consultation. Normal [facility] Large Joint Arthro/Inj: L kn ee joint [facility] Vital Signs Date Time Vital Sign Value Performing Clinician Facility 04-11-2025 11:33-0400 Body height 160 cm Ceci Luna PA-C Work Phone: [facility] 04-11-2025 11:33-0400 Body mass index (BMI) [Ratio] 24.29 kg/m2 Ceci Luna PA-C Work Phone: [facility] 04-11-2025 11:33-0400 Body weight 62.19 kg Ceci Luna PA-C Work Phone: [facility] 04-11-2025 11:33-0400 Diastolic blood pressure 70 mm[Hg] Ceci Luna PA-C Work Phone: [facility] 04-11-2025 11:33-0400 Heart rate 85 /min Ceci Luna PA-C Work Phone: [facility] 04-11-2025 11:33-0400 Systolic blood pressure 112 mm[Hg] Ceci Luna PA-C Work Phone: [facility] 03-20-2025 07:39-0400 Body height 160 cm Gallo Sanches DO Work Phone: [facility] 03-20-2025 07:39-0400 Body mass index (BMI) [Ratio] 24.81 kg/m2 Gallo Sanches DO Work Phone: [facility] 03-20-2025 07:39-0400 Body temperature 96.69 [degF] Gallo Sanches DO Work Phone: [facility] 03-20-2025 07:39-0400 Body weight 63.5 kg Gallo Sanches DO Work Phone: [facility] 03-20-2025 07:39-0400 Diastolic blood pressure 70 mm[Hg] Gallo Sanches DO Work Phone: [facility] 03-20-2025 07:39-0400 Heart rate 68 /min Gallo Sanches DO Work Phone: [facility] 03-20-2025 07:39-0400 Respiratory rate 16 /min Gallo Sanches DO Work Phone: [facility] 03-20-2025 07:39-0400 Systolic blood pressure 100 mm[Hg] Gallo Sanches DO Work Phone: [facility] 01-30-2025 10:09-0400 Body height 163.2 cm Ceci Luna PA-C Work Phone: [facility] 01-30-2025 10:09-0400 Body mass index (BMI) [Ratio] 24.27 kg/m2 Ceci Luna PA-C Work Phone: [facility] 01-30-2025 10:09-0400 Body weight 64.65 kg Ceci Luna PA-C Work Phone: [facility] 01-30-2025 10:09-0400 Diastolic blood pressure 70 mm[Hg] Ceci Luna PA-C Work Phone: [facility] 01-30-2025 10:09-0400 Heart rate 60 /min Ceci Luna PA-C Work Phone: [facility] 01-30-2025 10:09-0400 Systolic blood pressure 104 mm[Hg] Ceci Luna PA-C Work Phone: [facility] 01-02-2025 09:57-0400 Body mass index (BMI) [Ratio] 23.73 kg/m2 Yovani Donohue MD Work Phone: [facility] 01-02-2025 09:57-0400 Body temperature 97.3 [degF] Yovani Donohue MD Work Phone: [facility] 01-02-2025 09:57-0400 Body weight 63.2 kg Yovani Donohue MD Work Phone: [facility] 01-02-2025 09:57-0400 Diastolic blood pressure 69 mm[Hg] Yovani Donohue MD Work Phone: [facility] 01-02-2025 09:57-0400 Heart rate 73 /min Yovani Donohue MD Work Phone: [facility] 01-02-2025 09:57-0400 Systolic blood pressure 107 mm[Hg] Yovani Donohue MD Work Phone: [facility] 11-09-2024 16:33-0400 Body height 163.2 cm Esme Wisdom MD Work Phone: [facility] 11-09-2024 16:33-0400 Body mass index (BMI) [Ratio] 23.84 kg/m2 Esme Wisdom MD Work Phone: [facility] 11-09-2024 16:33-0400 Body weight 63.5 kg Esme Wisdom MD Work Phone: [facility] 11-09-2024 16:33-0400 Diastolic blood pressure 79 mm[Hg] Esme Wisdom MD Work Phone: [facility] 11-09-2024 16:33-0400 Heart rate 66 /min Esme Wisdom MD Work Phone: [facility] 11-09-2024 16:33-0400 Respiratory rate 16 /min Esme Wisdom MD Work Phone: [facility] 11-09-2024 16:33-0400 SaO2% (BldA) [Mass fraction] 100 % Esme Wisdom MD Work Phone: [facility] 11-09-2024 16:33-0400 Systolic blood pressure 116 mm[Hg] Esme Wisdom MD Work Phone: [facility] 09-12-2024 10:55-0500 Body mass index (BMI) [Ratio] 23.35 kg/m2 Krislyn Aberegg PA Work Phone: [facility] 09-12-2024 10:55-0500 Body temperature 99.1 [degF] Krislyn Aberegg PA Work Phone: [facility] 09-12-2024 10:55-0500 Body weight 62.2 kg Krislyn Aberegg PA Work Phone: [facility] 09-12-2024 10:55-0500 Diastolic blood pressure 62 mm[Hg] Krislyn Aberegg PA Work Phone: [facility] 09-12-2024 10:55-0500 Heart rate 90 /min Krislyn Aberegg PA Work Phone: [facility] 09-12-2024 10:55-0500 Respiratory rate 18 /min Krislyn Aberegg PA Work Phone: [facility] 09-12-2024 10:55-0500 SaO2% (BldA) [Mass fraction] 94 % Krislyn Aberegg PA Work Phone: [facility] 09-12-2024 10:55-0500 Systolic blood pressure 110 mm[Hg] Krislyn Aberegg PA Work Phone: [facility] 08-01-2024 10:07-0500 Body height 163.2 cm Cecirudi Guyon PA-C Work Phone: [facility] 08-01-2024 10:07-0500 Body mass index (BMI) [Ratio] 23.54 kg/m2 Ceci Guyon PA-C Work Phone: [facility] 08-01-2024 10:07-0500 Body weight 62.69 kg Ceci Luna PA-C Work Phone: [facility] 08-01-2024 10:07-0500 Diastolic blood pressure 70 mm[Hg] Ceci Luna PA-C Work Phone: [facility] 08-01-2024 10:07-0500 Heart rate 74 /min Ceci Luna PA-C Work Phone: [facility] 08-01-2024 10:07-0500 Systolic blood pressure 104 mm[Hg] Ceci Luna PA-C Work Phone: [facility] 07-04-2024 09:11-0500 Body height 163.2 cm Yovani Donohue MD Work Phone: [facility] 07-04-2024 09:11-0500 Body mass index (BMI) [Ratio] 23.75 kg/m2 Yovani Donohue MD Work Phone: [facility] 07-04-2024 09:11-0500 Body temperature 97.2 [degF] Yovani Donohue MD Work Phone: [facility] 07-04-2024 09:11-0500 Body weight 63.25 kg Yovani Donohue MD Work Phone: [facility] 07-04-2024 09:11-0500 Diastolic blood pressure 71 mm[Hg] Yovani Donohue MD Work Phone: [facility] 07-04-2024 09:11-0500 Heart rate 74 /min Yovani Donohue MD Work Phone: [facility] 07-04-2024 09:11-0500 Systolic blood pressure 110 mm[Hg] Yovani Donohue MD Work Phone: [facility] 04-29-2024 08:52-0400 Diastolic blood pressure 69 mm[Hg] Tika Correa MD Work Phone: [facility] 04-29-2024 08:52-0400 Heart rate 71 /min Tika Correa MD Work Phone: [facility] 04-29-2024 08:52-0400 Respiratory rate 16 /min Tika Correa MD Work Phone: [facility] 04-29-2024 08:52-0400 SaO2% (BldA) [Mass fraction] 92 % Tika Correa MD Work Phone: [facility] 04-29-2024 08:52-0400 Systolic blood pressure 105 mm[Hg] Tika Correa MD Work Phone: [facility] 04-29-2024 08:36-0400 Body temperature 97.39 [degF] Tika Correa MD Work Phone: [facility] 04-29-2024 07:53-0400 Body height 160 cm Tika Correa MD Work Phone: [facility] 04-29-2024 07:53-0400 Body mass index (BMI) [Ratio] 24.09 kg/m2 Tika Correa MD Work Phone: [facility] 04-29-2024 07:53-0400 Body weight 61.69 kg Tika Correa MD Work Phone: [facility] 04-12-2024 09:46-0400 Body mass index (BMI) [Ratio] 24.1 kg/m2 Izabel Kang COMPLIANCE ADVISOR.CUSTOMER SALES SPECIALIST Work Phone: [facility] 04-12-2024 09:46-0400 Body temperature 97.5 [degF] Izabel Staplesim COMPLIANCE ADVISOR.CUSTOMER SALES SPECIALIST Work Phone: [facility] 04-12-2024 09:46-0400 Body weight 61.69 kg Izabel Jorge Luis COMPLIANCE ADVISOR.CUSTOMER SALES SPECIALIST Work Phone: [facility] 04-12-2024 09:46-0400 Diastolic blood pressure 63 mm[Hg] Izabel Kang COMPLIANCE ADVISOR.CUSTOMER SALES SPECIALIST Work Phone: [facility] 04-12-2024 09:46-0400 Heart rate 74 /min Izabel Kang COMPLIANCE ADVISOR.CUSTOMER SALES SPECIALIST Work Phone: [facility] 04-12-2024 09:46-0400 SaO2% (BldA) [Mass fraction] 98 % Izabel Kang COMPLIANCE ADVISOR.CUSTOMER SALES SPECIALIST Work Phone: [facility] 04-12-2024 09:46-0400 Systolic blood pressure 100 mm[Hg] Izabel Kang COMPLIANCE ADVISOR.CUSTOMER SALES SPECIALIST Work Phone: [facility] 03-16-2024 07:44-0400 Body height 160 cm Gallo Sanches DO Work Phone: [facility] 03-16-2024 07:44-0400 Body mass index (BMI) [Ratio] 23.92 kg/m2 Gallo Sanches DO Work Phone: [facility] 03-16-2024 07:44-0400 Body temperature 97 [degF] Gallo Sanches DO Work Phone: [facility] 03-16-2024 07:44-0400 Body weight 61.24 kg Gallo Sanches DO Work Phone: [facility] 03-16-2024 07:44-0400 Diastolic blood pressure 60 mm[Hg] Gallo Sanches DO Work Phone: [facility] 03-16-2024 07:44-0400 Heart rate 76 /min Gallo Sanches DO Work Phone: [facility] 03-16-2024 07:44-0400 Respiratory rate 16 /min Gallo Sanches DO Work Phone: [facility] 03-16-2024 07:44-0400 Systolic blood pressure 100 mm[Hg] Gallo Sanches DO Work Phone: [facility] 03-11-2024 09:38-0400 Body height 160 cm Ashtyn Javier COMPLIANCE ADVISOR.CUSTOMER SALES SPECIALIST Work Phone: [facility] 03-11-2024 09:38-0400 Body mass index (BMI) [Ratio] 23.38 kg/m2 Ashtyn Javier COMPLIANCE ADVISOR.CUSTOMER SALES SPECIALIST Work Phone: [facility] 03-11-2024 09:38-0400 Body weight 59.88 kg Ashtyn Javier COMPLIANCE ADVISOR.CUSTOMER SALES SPECIALIST Work Phone: [facility] 03-11-2024 09:38-0400 Diastolic blood pressure 80 mm[Hg] Ashtyn Javier COMPLIANCE ADVISOR.CUSTOMER SALES SPECIALIST Work Phone: [facility] 03-11-2024 09:38-0400 Heart rate 73 /min Ashtyn Javier COMPLIANCE ADVISOR.CUSTOMER SALES SPECIALIST Work Phone: [facility] 03-11-2024 09:38-0400 Systolic blood pressure 120 mm[Hg] Ashtyn Javier COMPLIANCE ADVISOR.CUSTOMER SALES SPECIALIST Work Phone: [facility] 02-01-2024 10:40-0400 Body height 157.5 cm Ceci Luna PA-C Work Phone: [facility] 02-01-2024 10:40-0400 Body mass index (BMI) [Ratio] 24.67 kg/m2 Ceci Luna PA-C Work Phone: [facility] 02-01-2024 10:40-0400 Body weight 61.19 kg Ceci Luna PA-C Work Phone: [facility] 02-01-2024 10:40-0400 Diastolic blood pressure 76 mm[Hg] Ceci Luna PA-C Work Phone: [facility] 02-01-2024 10:40-0400 Heart rate 73 /min Ceci Luna PA-C Work Phone: [facility] 02-01-2024 10:40-0400 Systolic blood pressure 116 mm[Hg] Ceci Luna PA-C Work Phone: [facility] 01-26-2024 11:00-0400 Body height 157.5 cm Elias Hernandez MD Work Phone: [facility] 01-26-2024 11:00-0400 Body mass index (BMI) [Ratio] 24.66 kg/m2 Elias Hernandez MD Work Phone: [facility] 01-26-2024 11:00-0400 Body weight 61.15 kg Elias Hernandez MD Work Phone: [facility] 01-26-2024 11:00-0400 Diastolic blood pressure 78 mm[Hg] Elias Hernandez MD Work Phone: [facility] 01-26-2024 11:00-0400 Heart rate 74 /min Elias Hernandez MD Work Phone: [facility] 01-26-2024 11:00-0400 Systolic blood pressure 125 mm[Hg] Elias Hernandez MD Work Phone: [facility] 01-20-2024 08:45-0400 Body height 160 cm Ryland Kelly MD Work Phone: [facility] 01-20-2024 08:45-0400 Body mass index (BMI) [Ratio] 23.03 kg/m2 Ryland Kelly MD Work Phone: [facility] 01-20-2024 08:45-0400 Body weight 58.97 kg Ryland Kelly MD Work Phone: [facility] 01-15-2024 13:09-0400 Body height 160 cm Javier Edmonds MD Work Phone: [facility] 01-15-2024 13:09-0400 Body mass index (BMI) [Ratio] 23.74 kg/m2 Javier Edmonds MD Work Phone: [facility] 01-15-2024 13:09-0400 Body temperature 97.39 [degF] Javier Edmonds MD Work Phone: [facility] 01-15-2024 13:09-0400 Body weight 60.78 kg Javier Edmonds MD Work Phone: [facility] 01-15-2024 13:09-0400 Diastolic blood pressure 60 mm[Hg] Javier Edmonds MD Work Phone: [facility] 01-15-2024 13:09-0400 Heart rate 87 /min Javier Edmonds MD Work Phone: [facility] 01-15-2024 13:09-0400 Respiratory rate 16 /min Javier Edmonds MD Work Phone: [facility] 01-15-2024 13:09-0400 SaO2% (BldA) [Mass fraction] 100 % Javier Edmonds MD Work Phone: [facility] 01-15-2024 13:09-0400 Systolic blood pressure 95 mm[Hg] Javier Edmonds MD Work Phone: [facility] 12-24-2023 08:56-0400 Body height 160 cm Pulm Wstr Work Phone: [facility] 12-24-2023 08:56-0400 Body mass index (BMI) [Ratio] 23.39 kg/m2 Pulm Wstr Work Phone: [facility] 12-24-2023 08:56-0400 Body weight 59.88 kg Pulm Wstr Work Phone: [facility] 12-24-2023 08:56-0400 Heart rate 77 /min Pulm Wstr Work Phone: [facility] 12-24-2023 08:56-0400 Respiratory rate 14 /min Pulm Wstr Work Phone: [facility] 12-24-2023 08:56-0400 SaO2% (BldA) [Mass fraction] 100 % Pulm Wstr Work Phone: [facility] 12-01-2023 07:14-0400 Body mass index (BMI) [Ratio] 24.25 kg/m2 Rossi Martinez APRN.CNP Work Phone: [facility] 12-01-2023 07:14-0400 Body weight 61.15 kg Rossi Camarilloman COMPLIANCE ADVISOR.CUSTOMER SALES SPECIALIST Work Phone: [facility] 12-01-2023 07:14-0400 Diastolic blood pressure 70 mm[Hg] Rossi Calvin COMPLIANCE ADVISOR.CUSTOMER SALES SPECIALIST Work Phone: [facility] 12-01-2023 07:14-0400 Heart rate 73 /min Rossi Calvin COMPLIANCE ADVISOR.CUSTOMER SALES SPECIALIST Work Phone: [facility] 12-01-2023 07:14-0400 SaO2% (BldA) [Mass fraction] 98 % Rossi Schumacherutzman COMPLIANCE ADVISOR.CUSTOMER SALES SPECIALIST Work Phone: [facility] 12-01-2023 07:14-0400 Systolic blood pressure 108 mm[Hg] Rossi Calvin COMPLIANCE ADVISOR.CUSTOMER SALES SPECIALIST Work Phone: [facility] 10-07-2023 16:36-0500 Body height 158.8 cm Esme Wisdom MD Work Phone: [facility] 10-07-2023 16:36-0500 Body weight 60.6 kg Esme Wisdom MD Work Phone: [facility] 10-07-2023 16:36-0500 Diastolic blood pressure 81 mm[Hg] Esme Wisdom MD Work Phone: [facility] 10-07-2023 16:36-0500 Heart rate 92 /min Esme Wisdom MD Work Phone: [facility] 10-07-2023 16:36-0500 SaO2% (BldA) [Mass fraction] 97 % Esme Wisdom MD Work Phone: [facility] 10-07-2023 16:36-0500 Systolic blood pressure 117 mm[Hg] Esme Wisdom MD Work Phone: [facility] 04-23-2023 11:00-0400 Body temperature 97.2 [degF] Olya Brar MD Work Phone: [facility] 04-23-2023 11:00-0400 Body weight 59.6 kg Olya Brar MD Work Phone: [facility] 04-23-2023 11:00-0400 Diastolic blood pressure 82 mm[Hg] Olya Brar MD Work Phone: [facility] 04-23-2023 11:00-0400 Heart rate 78 /min Olya Brar MD Work Phone: [facility] 04-23-2023 11:00-0400 SaO2% (BldA) [Mass fraction] 97 % Olya Brar MD Work Phone: [facility] 04-23-2023 11:00-0400 Systolic blood pressure 117 mm[Hg] Olya Brar MD Work Phone: [facility] 04-07-2023 15:03-0400 Body height 158.8 cm Esme Wisdom MD Work Phone: [facility] 04-07-2023 15:03-0400 Body weight 59.88 kg Esme Wisdom MD Work Phone: [facility] 04-07-2023 15:03-0400 Diastolic blood pressure 86 mm[Hg] Esme Wisdom MD Work Phone: [facility] 04-07-2023 15:03-0400 Heart rate 77 /min Esme Wisdom MD Work Phone: [facility] 04-07-2023 15:03-0400 SaO2% (BldA) [Mass fraction] 100 % Esme Wisdom MD Work Phone: [facility] 04-07-2023 15:03-0400 Systolic blood pressure 138 mm[Hg] Esme Wisdom MD Work Phone: [facility] 04-01-2023 15:35-0400 Body height 157.5 cm Ceci Nava PA-C Work Phone: [facility] 04-01-2023 15:35-0400 Body weight 61.19 kg Ceci Elijah PA-C Work Phone: [facility] 04-01-2023 15:35-0400 Diastolic blood pressure 68 mm[Hg] Ceci Elijah PA-C Work Phone: [facility] 04-01-2023 15:35-0400 Heart rate 69 /min Ceci Elijah PA-C Work Phone: [facility] 04-01-2023 15:35-0400 Systolic blood pressure 104 mm[Hg] Ceci Elijah PA-C Work Phone: [facility] 03-16-2023 12:08-0400 Diastolic blood pressure 69 mm[Hg] Alejandro Hatfield MD Work Phone: [facility] 03-16-2023 12:08-0400 Heart rate 70 /min Alejandro Hatfield MD Work Phone: [facility] 03-16-2023 12:08-0400 Respiratory rate 16 /min Alejandro Hatfield MD Work Phone: [facility] 03-16-2023 12:08-0400 SaO2% (BldA) [Mass fraction] 100 % Alejandro Hatfield MD Work Phone: [facility] 03-16-2023 12:08-0400 Systolic blood pressure 109 mm[Hg] Alejandro Hatfield MD Work Phone: [facility] 03-16-2023 11:51-0400 Body temperature 97.3 [degF] Alejandro Hatfield MD Work Phone: [facility] 03-16-2023 11:18-0400 Body height 157.5 cm Alejandro Hatfield MD Work Phone: [facility] 03-16-2023 11:18-0400 Body mass index (BMI) [Ratio] 23.78 kg/m2 Alejandro Hatfield MD Work Phone: [facility] 03-16-2023 11:18-0400 Body weight 58.97 kg Alejandro Hatfield MD Work Phone: [facility] 03-11-2023 14:11-0400 Body height 158.8 cm Ashtyn Javier COMPLIANCE ADVISOR.CUSTOMER SALES SPECIALIST Work Phone: [facility] 03-11-2023 14:11-0400 Body weight 58.97 kg Ashtyn Javier COMPLIANCE ADVISOR.CUSTOMER SALES SPECIALIST Work Phone: [facility] 03-11-2023 14:11-0400 Diastolic blood pressure 76 mm[Hg] Ashtyn Javier COMPLIANCE ADVISOR.CUSTOMER SALES SPECIALIST Work Phone: [facility] 03-11-2023 14:11-0400 Heart rate 78 /min Ashtyn Javier COMPLIANCE ADVISOR.CUSTOMER SALES SPECIALIST Work Phone: [facility] 03-11-2023 14:11-0400 Systolic blood pressure 117 mm[Hg] Ashtyn Javier COMPLIANCE ADVISOR.CUSTOMER SALES SPECIALIST Work Phone: [facility] 03-10-2023 08:02-0400 Body height 160.5 cm Gallo Sanches DO Work Phone: [facility] 03-10-2023 08:02-0400 Body temperature 96.49 [degF] Gallo Sanches DO Work Phone: [facility] 03-10-2023 08:02-0400 Body weight 61.24 kg Gallo Sanches DO Work Phone: [facility] 03-10-2023 08:02-0400 Diastolic blood pressure 70 mm[Hg] Gallo Sanches DO Work Phone: [facility] 03-10-2023 08:02-0400 Heart rate 76 /min Gallo Sanches DO Work Phone: [facility] 03-10-2023 08:02-0400 Respiratory rate 16 /min Gallo Sanches DO Work Phone: [facility] 03-10-2023 08:02-0400 Systolic blood pressure 110 mm[Hg] Gallo Sanches DO Work Phone: [facility] 01-02-2023 12:57-0400 Body height 161.3 cm Prasad Scott PA-C Work Phone: [facility] 01-02-2023 12:57-0400 Body weight 59.88 kg Prasad Scott PA-C Work Phone: [facility] 11-25-2022 16:04-0400 Body weight 58.97 kg NA Azevedo PA-C Work Phone: [facility] 11-25-2022 16:04-0400 Diastolic blood pressure 72 mm[Hg] NA Azevedo PA-C Work Phone: [facility] 11-25-2022 16:04-0400 Heart rate 83 /min NA Azevedo PA-C Work Phone: [facility] 11-25-2022 16:04-0400 Respiratory rate 16 /min NA Azevedo PA-C Work Phone: [facility] 11-25-2022 16:04-0400 SaO2% (BldA) [Mass fraction] 100 % NA Azevedo PA-C Work Phone: [facility] 11-25-2022 16:04-0400 Systolic blood pressure 128 mm[Hg] NA Azevedo PA-C Work Phone: [facility] 11-19-2022 15:58-0400 Body temperature 99.7 [degF] Rossi Calvin COMPLIANCE ADVISOR.CUSTOMER SALES SPECIALIST Work Phone: [facility] 11-19-2022 15:58-0400 Body weight 58.88 kg Rossi Calvin COMPLIANCE ADVISOR.CUSTOMER SALES SPECIALIST Work Phone: [facility] 11-19-2022 15:58-0400 Diastolic blood pressure 78 mm[Hg] Rossi Calvin COMPLIANCE ADVISOR.CUSTOMER SALES SPECIALIST Work Phone: [facility] 11-19-2022 15:58-0400 Heart rate 95 /min Rossi Calvin COMPLIANCE ADVISOR.CUSTOMER SALES SPECIALIST Work Phone: [facility] 11-19-2022 15:58-0400 Respiratory rate 16 /min Rossi Calvin COMPLIANCE ADVISOR.CUSTOMER SALES SPECIALIST Work Phone: [facility] 11-19-2022 15:58-0400 SaO2% (BldA) [Mass fraction] 96 % Rossi Martinez COMPLIANCE ADVISOR.CUSTOMER SALES SPECIALIST Work Phone: [facility] 11-19-2022 15:58-0400 Systolic blood pressure 106 mm[Hg] Rossikeila Martinez COMPLIANCE ADVISOR.CUSTOMER SALES SPECIALIST Work Phone: [facility] 10-31-2022 09:20-0400 Body temperature 97.11 [degF] Gallo Sanches DO Work Phone: [facility] 10-31-2022 09:20-0400 Body weight 58.97 kg Gallo Sanches DO Work Phone: [facility] 10-31-2022 09:20-0400 Diastolic blood pressure 80 mm[Hg] Gallo Sanches DO Work Phone: [facility] 10-31-2022 09:20-0400 Heart rate 72 /min Gallo Sanches DO Work Phone: [facility] 10-31-2022 09:20-0400 Respiratory rate 16 /min Gallo Sanches DO Work Phone: [facility] 10-31-2022 09:20-0400 Systolic blood pressure 120 mm[Hg] Gallo Sanches DO Work Phone: [facility] 10-29-2022 08:31-0400 Body height 161.3 cm Ceci Elijah PA-C Work Phone: [facility] 10-29-2022 08:31-0400 Body weight 58.42 kg Ceci Elijah PA-C Work Phone: [facility] 10-29-2022 08:31-0400 Diastolic blood pressure 73 mm[Hg] Ceci Elijah PA-C Work Phone: [facility] 10-29-2022 08:31-0400 Heart rate 72 /min Ceci Elijah PA-C Work Phone: [facility] 10-29-2022 08:31-0400 Systolic blood pressure 103 mm[Hg] Ceci Nava PA-C Work Phone: [facility] 05-27-2022 14:55-0400 Body height 161.3 cm Esme Wisdom MD Work Phone: [facility] 05-27-2022 14:55-0400 Body weight 57.7 kg Esme Wisdom MD Work Phone: [facility] 05-27-2022 14:55-0400 Diastolic blood pressure 81 mm[Hg] Esme Wisdom MD Work Phone: [facility] 05-27-2022 14:55-0400 Heart rate 72 /min Esme Wisdom MD Work Phone: [facility] 05-27-2022 14:55-0400 Respiratory rate 16 /min Esme Wisdom MD Work Phone: [facility] 05-27-2022 14:55-0400 SaO2% (BldA) [Mass fraction] 99 % Esme Wisdom MD Work Phone: [facility] 05-27-2022 14:55-0400 Systolic blood pressure 117 mm[Hg] Esme Wisdom MD Work Phone: [facility] 05-16-2022 15:26-0400 Body height 161.3 cm Paige Sylvester COMPLIANCE ADVISOR.CUSTOMER SALES SPECIALIST Work Phone: [facility] 05-16-2022 15:26-0400 Body weight 58.06 kg Paige Sylvester COMPLIANCE ADVISOR.CUSTOMER SALES SPECIALIST Work Phone: [facility] 05-16-2022 15:26-0400 Diastolic blood pressure 80 mm[Hg] Paige Sylvester COMPLIANCE ADVISOR.CUSTOMER SALES SPECIALIST Work Phone: [facility] 05-16-2022 15:26-0400 Heart rate 66 /min Paige Sylvester COMPLIANCE ADVISOR.CUSTOMER SALES SPECIALIST Work Phone: [facility] 05-16-2022 15:26-0400 Systolic blood pressure 120 mm[Hg] Paige Sylvester COMPLIANCE ADVISOR.CUSTOMER SALES SPECIALIST Work Phone: [facility] 04-03-2022 09:09-0400 Body height 161.9 cm Claire Chaney MD Work Phone: [facility] 04-03-2022 09:09-0400 Body weight 58.51 kg Claire Chaney MD Work Phone: [facility] 04-03-2022 09:09-0400 Diastolic blood pressure 63 mm[Hg] Claire Chaney MD Work Phone: [facility] 04-03-2022 09:09-0400 Heart rate 73 /min Claire Chaney MD Work Phone: [facility] 04-03-2022 09:09-0400 Systolic blood pressure 101 mm[Hg] Claire Chaney MD Work Phone: [facility] 12-19-2021 16:04-0400 Body height 160 cm Paige Sylvester COMPLIANCE ADVISOR.CUSTOMER SALES SPECIALIST Work Phone: [facility] 12-19-2021 16:04-0400 Body weight 56.25 kg Paige Sylvester COMPLIANCE ADVISOR.CUSTOMER SALES SPECIALIST Work Phone: [facility] 12-19-2021 16:04-0400 Diastolic blood pressure 68 mm[Hg] Paige Sylvester COMPLIANCE ADVISOR.CUSTOMER SALES SPECIALIST Work Phone: [facility] 12-19-2021 16:04-0400 Heart rate 83 /min Paige Sylvester COMPLIANCE ADVISOR.CUSTOMER SALES SPECIALIST Work Phone: [facility] 12-19-2021 16:04-0400 Systolic blood pressure 104 mm[Hg] Paige Sylvester COMPLIANCE ADVISOR.CUSTOMER SALES SPECIALIST Work Phone: [facility] 12-16-2021 16:08-0400 Body height 160 cm Pac 1 Work Phone: [facility] 12-16-2021 16:08-0400 Body temperature 97.9 [degF] Pacc 1 Work Phone: [facility] 12-16-2021 16:08-0400 Body weight 56.7 kg Pacc 1 Work Phone: [facility] 12-16-2021 16:08-0400 Diastolic blood pressure 70 mm[Hg] Pacc 1 Work Phone: [facility] 12-16-2021 16:08-0400 Heart rate 85 /min Pacc 1 Work Phone: [facility] 12-16-2021 16:08-0400 Respiratory rate 16 /min Pacc 1 Work Phone: [facility] 12-16-2021 16:08-0400 SaO2% (BldA) [Mass fraction] 99 % Pacc 1 Work Phone: [facility] 12-16-2021 16:08-0400 Systolic blood pressure 116 mm[Hg] Pacc 1 Work Phone: [facility] 11-22-2021 15:14-0400 Body weight 57.52 kg Gallo Sanches DO Work Phone: [facility] 11-22-2021 15:14-0400 Diastolic blood pressure 80 mm[Hg] Gallo Sanches DO Work Phone: [facility] 11-22-2021 15:14-0400 Heart rate 68 /min Gallo Sanches DO Work Phone: [facility] 11-22-2021 15:14-0400 Respiratory rate 16 /min Gallo Sanches DO Work Phone: [facility] 11-22-2021 15:14-0400 Systolic blood pressure 112 mm[Hg] Gallo Sanches DO Work Phone: [facility] 11-05-2021 13:27-0400 Diastolic blood pressure 65 mm[Hg] Alejandro Hatfield MD Work Phone: [facility] 11-05-2021 13:27-0400 Heart rate 80 /min Alejandro Hatfield MD Work Phone: [facility] 11-05-2021 13:27-0400 Respiratory rate 16 /min Alejandro Hatfield MD Work Phone: [facility] 11-05-2021 13:27-0400 SaO2% (BldA) [Mass fraction] 100 % Alejandro Hatfield MD Work Phone: [facility] 11-05-2021 13:27-0400 Systolic blood pressure 102 mm[Hg] Alejandro Hatfield MD Work Phone: [facility] 11-05-2021 13:13-0400 Body temperature 97.3 [degF] Alejandro Hatfield MD Work Phone: [facility] 11-05-2021 12:28-0400 Body height 160 cm Alejandro Hatfield MD Work Phone: [facility] 11-05-2021 12:28-0400 Body weight 57.15 kg Alejandro Hatfield MD Work Phone: [facility] 11-01-2021 11:03-0400 Body height 160 cm Paige Sylvester COMPLIANCE ADVISOR.CUSTOMER SALES SPECIALIST Work Phone: [facility] 11-01-2021 11:03-0400 Body weight 57.15 kg Paige Sylvester COMPLIANCE ADVISOR.CUSTOMER SALES SPECIALIST Work Phone: [facility] 11-01-2021 11:03-0400 Diastolic blood pressure 70 mm[Hg] Paige Sylvester COMPLIANCE ADVISOR.CUSTOMER SALES SPECIALIST Work Phone: [facility] 11-01-2021 11:03-0400 Heart rate 68 /min Paige Sylvester COMPLIANCE ADVISOR.CUSTOMER SALES SPECIALIST Work Phone: [facility] 11-01-2021 11:03-0400 Systolic blood pressure 108 mm[Hg] Paige Sylvester COMPLIANCE ADVISOR.CUSTOMER SALES SPECIALIST Work Phone: [facility] NEGATED: Highlighted [id number] 09:15-0400 Body height 160.02 cm Cheyenne Elam RN [facility] Work Phone: NEGATED: Highlighted [id number] 09:15-0400 Body height 160 cm Cheyenne Elam RN [facility] Work Phone: NEGATED: Highlighted [id number] 09:15-0400 Body mass index (BMI) [Ratio] 22.58 kg/m2 Cheyenne Elam RN [facility] Work Phone: NEGATED: Highlighted [id number] 09:15-0400 Body weight 57.61 kg Cheyenne Elam RN [facility] Work Phone: NEGATED: Highlighted [id number] 09:15-0400 Body weight 58 kg Cheyenne Elam RN [facility] Work Phone: Encounters Encounter Date Encounter Type Care Provider Facility Start: 06-26-2025 ambulatory Felicita Cedillo Facility: [facility] Start: 04-14-2025 ambulatory Gallo Tang y:[facility] Start: 04-11-2025 End: 04-11-2025 Patient encounter procedure Ceci Luna PA-C Work Phone: [facility] [place] Comment on above: Irritable bowel synd marvin with constipation (Primary Dx) Start: 04-11-2025 End: 04-11-2025 ambulatory CECI LUNA Facility:[facility] Start: 04-10-2025 End: 04-10-2025 ambulatory GALLO SANCHES DO Facility[place] Start: 04-10-2025 End: 04-10-[address] FELICITA CEDILLO MD [facility] Start: 04-10-2025 End: 04-10-[address] FELICITA CEDILLO MD [facility] Start: 03-20-2025 End: 03-20-2025 Patient encounter procedure Gallo Sanches DO Work Phone: [facility] [place] Comment on above: Well adult exam (Michelle james Dx); Encounter for screening for cardiovascular disorders; Family history of early CAD; Hyperlipidemia, mixed; Fatigue, unspecified type; Gastroesophageal reflux disease without esophagitis; Vitamin D deficiency; Left knee pain, unspecified chronicity Start: 03-20-2025 End: 03-20-2025 Patient encounter status Gallo Sanches DO Work Phone: [facility] Start: 03-20-2025 End: 03-20-2025 ambulatory GALLO LAMBERTRISON Facility:[facility] Start: 03-14-2025 End: 03-14-2025 ambulatory GALLO L SANCHES Facility:[facility] Start: 03-13-2025 End: 03-13-2025 ambulatory ASHTYN HERNANDEZOVA Facility:[facility] Start: 03-06-2025 End: 03-06-2025 ambulatory Gallo Presleyon DO Work Phone: [facility] [place] Comment on above: Blood work Start: 03-06-2025 End: 03-06-2025 Patient encounter status Gallo Presleyon DO Work Phone: [facility] Work Phone: Start: 03-06-2025 End: 03-06-2025 Telephone encounter Gallo Sanches DO Work Phone: [facility] [place] Start: 02-06-2025 End: 02-07-2025 ambulatory Ceci ALCARAZ-C Work Phone: [facility] Comment on above: Medicine Start: 01-30-2025 End: 01-30-2025 ambulatory CECI LUNA Facility:[facility] Start: 01-30-2025 End: 01-30-2025 Patient encounter procedure Ceci ALCARAZ-C Work Phone: [facility] Comment on above: Irritable bowel synd marvin with constipation (Primary Dx) Start: 01-15-2025 End: 01-16-2025 Refill Ceci ALCARAZ-C Work Phone: [facility] Comment on above: Refill Request Start: 01-02-2025 End: 01-02-2025 Office outpatient visit 15 minutes Yovani Donohue MD Work Phone: Neurology [facility] Comment on above: Bradykinesia (Primar y Dx) Start: 01-02-2025 End: 01-02-2025 ambulatory YOVANI DONOHUE Facility:[facility] Start: 11-09-2024 End: 11-09-2024 Patient encounter procedure Esme Wisdom MD Work Phone: Endocrinology Comment on above: Age-related osteopor osis with current pathological fracture with routine healing, subsequent encounter (Primary Dx) Other osteoporosis w ithout current pathological fracture (Primary Dx) Start: 11-09-2024 End: 11-09-2024 ambulatory GALLO L SANCHES Facility:[facility] Start: 11-04-2024 End: 11-07-2024 Telephone encounter Esme Wisdom MD Work Phone: Endocrinology Comment on above: CAM Order Request Start: 10-28-2024 End: 10-28-2024 Telephone encounter [facility] Comment on above: Patient Update Start: 10-13-2024 End: 10-13-2024 [facility] above: Refill Request Start: 10-10-2024 End: 10-10-2024 [facility]ill [facility] Comment on above: Refill Request Start: 10-10-2024 End: 10-10-2024 Refill Gallo L Sanches DO Work Phone: [facility] [place] Comment on above: Refill Request Start: 10-09-2024 End: 10-10-2024 ambulatory Gallo L Sanches DO Work Phone: [facility] [place] Comment on above: Prescription Start: 09-26-2024 End: 09-26-2024 Refill Gallo L Sanches DO Work Phone: [facility] Comment on above: Refill Request Start: 09-16-2024 End: 09-19-2024 Refill Izabel Kang COMPLIANCE ADVISOR.CUSTOMER SALES SPECIALIST Work Phone: [facility] Hematology/Oncology Comment on above: Refill Request Start: 09-12-2024 End: 11-12-2024 Follow-up encounter Flaquita Leon APRN.CUSTOMER SALES SPECIALIST Work Phone: [facility] Start: 09-12-2024 End: 09-12-2024 ambulatory GALLO SANCHES Facility:[facility] Start: 09-12-2024 End: 09-12-2024 Patient encounter procedure Segun Galeana PA Work Phone: [facility] Comment on above: Flu-like symptoms (P rimary Dx) Start: 08-26-2024 End: 08-26-2024 Patient encounter procedure Jason Hester MD Work Phone: [facility] Comment on above: Gas Start: 08-26-2024 End: 08-26-2024 ambulatory JASON HESTER Facility:[facility] Start: 08-26-2024 End: 08-26-2024 ambulatory CECI LUNA Facility:[facility] Start: 08-26-2024 End: 08-26-2024 Nursing evaluation of patient and report Nurse Dos Santos [facility] Work Phone: [facility] Comment on above: Irritable bowel synd marvin with constipation; NCGS (non-celiac gluten sensitivity); Bloating Start: 08-17-2024 End: 08-17-2024 Telephone encounter Nurse Raya Chowdary Work Phone: [facility] Comment on above: Appointment Start: 08-11-2024 End: 08-11-2024 Telephone encounter Ceci Luna PA-C Work Phone: Ambulatory Surgery Comment on above: Results Start: 08-10-2024 End: 08-11-2024 ambulatory Ceci Luna PA-C Work Phone: [facility] [place] Comment on above: Xray Start: 08-05-2024 End: 08-05-2024 ambulatory CECI LUNA Facility:[facility] Start: 08-05-2024 End: 08-05-2024 Subsequent hospital visit by physician Xr [facility] [place] Work Phone: Radiology Comment on above: Irritable bowel synd marvin with constipation [K58.1] Start: 08-01-2024 End: 08-01-2024 ambulatory CECI LUNA Facility:[facility] Start: 08-01-2024 End: 08-01-2024 Patient encounter procedure Ceci Luna PA-C Work Phone: [facility] [place] Comment on above: Gastroesophageal ref lux disease, unspecified whether esophagitis present (Primary Dx); Irritable bowel syndrome with constipation; NCGS (non-celiac gluten sensitivity); Bloating Start: 07-04-2024 End: 07-04-2024 ambulatory YOVANI DONOHUE Facility:[facility] Start: 07-04-2024 End: 07-04-2024 Office outpatient new 30 minutes Yovani Donohue MD Work Phone: Neurology [facility] Comment on above: Facial twitching (Pr imary Dx); Bradykinesia; Hyposmia Start: 06-02-2024 End: 06-02-2024 ambulatory Esme Wisdom MD Work Phone: Endocrinology Comment on above: Bone density test Start: 05-30-2024 End: 05-30-2024 ambulatory ESME WISDOM Facility:[facility] Start: 05-30-2024 End: 05-30-2024 Subsequent hospital visit by physician Bone Density [facility] Work Phone: Radiology Comment on above: Age-related osteopor osis without current pathological fracture [M81.0] Start: 05-10-2024 End: 05-10-2024 Telephone encounter Mauricio Ram PA-C Work Phone: [facility] [place] Start: 05-06-2024 End: 05-09-2024 ambulatory Ceci Luna PA-C Work Phone: [facility] [place] Comment on above: Famotidine prescript ion Start: 04-29-2024 End: 04-29-2024 ambulatory ESME WISDOM Facility:[facility] Start: 04-29-2024 End: 04-29-2024 Patient encounter procedure Nurse Lyla Durham Work Phone: Endocrinology Comment on above: Other osteoporosis w ithout current pathological fracture (Primary Dx) Start: 04-29-2024 End: 04-29-2024 ambulatory TIKA CORREA Facility:[facility] Start: 04-29-2024 End: 04-29-2024 Subsequent hospital visit by physician Tika Correa MD Work Phone: Ambulatory Surgery Comment on above: Gastroesophageal ref lux disease, unspecified whether esophagitis present [K21.9] Start: 04-22-2024 End: 04-22-2024 Admission to same day surgery center Armani Blanchard MD Work Phone: Ambulatory Surgery Start: 04-22-2024 End: 04-22-2024 ambulatory Armani Blanchard MD Work Phone: Ambulatory Surgery Start: 04-22-2024 End: 04-25-2024 Telephone encounter Esme Wisdom MD Work Phone: Endocrinology Comment on above: CAM Order Start: 04-18-2024 End: 04-19-2024 Telephone encounter Esme Wisdom MD Work Phone: [address] [place] [address] Start: 04-18-2024 End: 04-18-2024 ambulatory GALLO SANCHES Facility:[facility] Start: 04-12-2024 End: 04-12-2024 ambulatory IZABEL KANG Facility:[facility] Start: 04-12-2024 End: 04-12-2024 Follow-up encounter Izabel Kang APRN.CUSTOMER SALES SPECIALIST Work Phone: [facility] Hematology/Oncology Comment on above: Encounter for follow -up surveillance of breast cancer (Primary Dx) Start: 04-12-2024 End: 04-12-2024 Patient encounter procedure Izabel M Jorge Luis COMPLIANCE ADVISOR.CUSTOMER SALES SPECIALIST Work Phone: [facility] Hematology/Oncology Start: 03-30-2024 End: 03-30-2024 Refill Ceci Luna PA-C Work Phone: [facility] Comment on above: Refill Request Start: 03-16-2024 End: 03-16-2024 Patient encounter procedure Gallo Presleyon DO Work Phone: [facility] [place] Comment on above: Well adult exam ([facility] Dx); Anemia, unspecified type; Fatigue, unspecified type; Hyperlipidemia, mixed; Persistent dry cough; Gastroesophageal reflux disease without esophagitis; Vitamin D deficiency; It band syndrome, left; Facial twitching Start: 03-16-2024 End: 03-16-2024 Patient encounter status Gallo Soriano Sanches DO Work Phone: [facility] Start: 03-11-2024 Patient encounter status Ingris Sanhces DO Work Phone: [facility] Work Phone: Start: 03-11-2024 Telephone encounter Gallo yuen DO Work Phone: [facility] [place] Comment on above: Patient Question Start: 03-11-2024 End: 03-11-2024 Patient encounter procedure Ashtyn Javier APRN.CUSTOMER SALES SPECIALIST Work Phone: [facility] Comment on above: Carcinoma of upper-o uter quadrant of right breast in female, estrogen receptor positive (HCC) (Primary Dx); History of bilateral breast implants; History of bilateral mastectomy Start: 03-10-2024 ambulatory Gallo saxena DO Work Phone: 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] Start: 02-01-2024 End: 02-01-2024 Patient encounter procedure Ceci Luna PA-C Work Phone: [facility] Comment on above: Irritable bowel synd marvin with constipation (Primary Dx); Gastroesophageal reflux disease, unspecified whether esophagitis present; NCGS (non-celiac gluten sensitivity) Start: 01-26-2024 Telephone encounter Rossi Treviño COMPLIANCE ADVISOR.CUSTOMER SALES SPECIALIST Work Phone: Family Medicine [place] Comment on above: Results Start: 01-26-2024 End: 01-26-2024 Office outpatient new 30 minutes lEias Hernandez MD Work Phone: Neurology [facility] Comment on above: Hemifacial spasm of left side of face (Primary Dx) Start: 01-20-2024 End: 01-20-2024 ambulatory RYLAND ROBIN [facility] Start: 01-20-2024 End: 01-20-2024 Office outpatient new 20 minutes Ryland Kelly MD Work Phone: [facility] Orthopedics and Sports Medicine Comment on above: Bilateral plantar fa sciitis (Primary Dx); Left foot pain Start: 01-18-2024 End: 01-18-2024 [facility] Work Phone: Radiology Comment on above: Liver cyst [K76.89] Start: 01-15-2024 End: 01-15-2024 Office outpatient visit 25 minutes Javier Edmonds MD Work Phone: Pulmonary Medicine Comment on above: Chronic cough (Prima ry Dx); Granulomatous disease (HCC); Vocal cord strain; Gastroesophageal reflux disease, unspecified whether esophagitis present Start: 01-13-2024 End: 01-13-2024 ambulatory Pulm Lab [facility] Work Phone: PULM LAB [facility] Comment on above: Spirometry Start: 01-13-2024 End: 01-13-2024 Patient encounter procedure Pulm Lab [facility] Work Phone: PULM LAB [facility] Start: 01-05-2024 ambulatory Rossi toro COMPLIANCE ADVISOR.CUSTOMER SALES SPECIALIST Work Phone: Family [facility] [place] Comment on above: Chest ct Start: 01-01-2024 Orders Only Nae Kaehler PA -C Work Phone: [facility] Orthopedics and Sports Medicine Comment on above: Right foot pain (Michelle james Dx) Patient Question Start: 01-01-2024 Refill Ceci Guy on PA-C Work Phone: Gastroenterology [place] Comment on above: Refill Request Start: 12-31-2023 ambulatory Gallo Cheng son DO Work Phone: Family Medicine [place] Comment on above: Chest CT results Start: 12-24-2023 End: 12-24-2023 ambulatory Pulm Lab [facility] Work Phone: PULM LAB [facility] Comment on above: Spirometry Start: 12-24-2023 End: 12-24-2023 Patient encounter procedure Pulm Lab [facility] Work Phone: PULM LAB [facility] Start: 12-24-2023 End: 12-24-2023 [facility] Work Phone: Cat Scan Comment on above: Chronic cough [R05.3 ] Start: 12-01-2023 End: 12-01-2023 Subsequent hospital visit by physician Xr [facility] [place] Work Phone: Radiology Comment on above: Persistent dry cough [R05.3] Start: 12-01-2023 Telephone encounter Rossi Treviño APRN.CUSTOMER SALES SPECIALIST Work Phone: Family [facility] [place] Comment on above: Request Outside [facility] Appointment Start: 12-01-2023 End: 12-01-2023 Patient encounter procedure Rossi Martinez COMPLIANCE ADVISOR.CUSTOMER SALES SPECIALIST Work Phone: Family [facility] [place] Comment on above: Facial twitching (Pr imary Dx); Persistent dry cough Start: 10-23-2023 Telephone encounter Esme Cortes i, MD Work Phone: Endocrinology Comment on above: CAM Order Request Start: 10-21-2023 ambulatory [facility] Provider Endocrinol liy[facility]y Comment on above: Prolia Injections Start: 10-21-2023 E-mail encounter jennifer reynoso caregiver [facility] Provider [facility] Start: 10-09-2023 Refill Gallo Cheng son DO Work Phone: Family Medicine [place] Comment on above: Refill Request Start: 10-08-2023 Telephone encounter Esme Cortes i, MD Work Phone: Endocrinology Comment on above: PA--Prolia 2023 Start: 10-07-2023 End: 10-07-2023 Patient encounter procedure Esme Wisdom MD Work Phone: Endocrinology Comment on above: Other osteoporosis w ithout current pathological fracture (Primary Dx) Start: 09-23-2023 Refill Ceci Guy on PA-C Work Phone: [facility] [place] Comment on above: Refill Request Start: 09-15-2023 E-mail encounter jennifer m caregiver [facility] Provider [facility] Start: 09-15-2023 Follow-up encounter [facility] Provider End ocrinology Comment on above: Follow up Start: 09-14-2023 Telephone encounter Esme Cortes i, MD Work Phone: Endocrinology Comment on above: PA--PROLIA ([place] ST[place] T) Start: 09-14-2023 End: 09-14-2023 Patient encounter procedure Nurse [facility] Work Phone: Endocrinology Comment on above: Other osteoporosis w ithout current pathological fracture (Primary Dx) Start: 09-07-2023 Telephone encounter Gallo yuen DO Work Phone: Family [facility] [place] Comment on above: Patient Question Start: 09-06-2023 ambulatory Gallo Cheng son DO Work Phone: Family [facility] [place] Comment on above: Bloodwork Start: 07-28-2023 End: 09-22-2023 ambulatory JEAN-PAUL LEONE PA-C Facility:B Start: 07-28-2023 End: 09-22-2023 Physical therapy management JEAN-PAUL LEONE PA-C [facility] Start: 07-15-2023 Telephone encounter Gallo yuen DO Work Phone: Family [facility] [place] Comment on above: Results Start: 07-14-2023 ambulatory Gallo saxena DO Work Phone: [facility] [place] Comment on above: Lipid blood work Start: 07-07-2023 Telephone encounter Gallo yuen DO Work Phone: [facility] [place] Comment on above: Patient Question (EK G results at pre op exam for 07/24 upcoming surgery) Start: 07-05-2023 Refill Olya haines MD Work Phone: [facility] Comment on above: Refill Request Start: 07-02-2023 ambulatory Gallo saxena DO Work Phone: [facility] [place] Comment on above: EKG Start: 06-29-2023 End: 06-30-2023 ambulatory GALLO SANCHES DO Facility:B Start: 06-11-2023 End: 06-11-2023 Patient encounter procedure Nurse Lyla Durham Work Phone: Endocrinology Comment on above: Other osteoporosis w ithout current pathological fracture (Primary Dx) Start: 05-21-2023 End: 05-21-2023 ambulatory Salas Over[place] [facility] Physical Therapy Comment on above: Acetabular labrum te ar, right, subsequent encounter (Primary Dx) Start: 05-11-2023 Telephone encounter Ceci Nava PA-C Work Phone: G[facility]enterology [place] Comment on above: Orders Start: 05-11-2023 End: 05-11-2023 Patient encounter procedure Nurse Lyla Durham Mc Work Phone: Endocrinology Comment on above: Other osteoporosis w ithout current pathological fracture (Primary Dx) Start: 04-23-2023 End: 04-23-2023 ambulatory Olya Brar MD Work Phone: [facility] Comment on above: History of breast ca ncer (Primary Dx); Hemochromatosis carrier Start: 04-23-2023 End: 04-23-2023 Patient encounter procedure Olya Brar MD Work Phone: [facility] Start: 04-16-2023 End: 04-16-2023 ambulatory Salas [place] [facility] Physical Therapy Comment on above: Acetabular labrum te ar, right, subsequent encounter (Primary Dx) Start: 04-10-2023 ambulatory Ceci BROWNINGC Work Phone: Gastroenterology [place] Comment on above: Sitzmarker test resu lts Start: 04-09-2023 End: 04-09-2023 Patient encounter procedure Nurse Lyla Durham Work Phone: Endocrinology Comment on above: Other osteoporosis w ithout current pathological fracture (Primary Dx) Start: 04-08-2023 End: 04-08-2023 Subsequent hospital visit by physician Sherri [facility] [place] Work Phone: Radiology Comment on above: Chronic constipation [K59.09] Start: 04-07-2023 End: 04-07-2023 Patient encounter procedure Esme Wisdom MD Work Phone: Endocrinology Comment on above: Other osteoporosis w ithout current pathological fracture (Primary Dx) Start: 04-01-2023 End: 04-01-2023 Patient encounter procedure [facility] on above: Chronic constipation (Primary Dx) Start: 03-16-2023 End: 03-16-2023 Subsequent hospital visit by physician Alejandro Hatfield MD Work Phone: Ambulatory Surgery Comment on above: Screening for colon cancer [Z12.11] Start: 03-11-2023 End: 03-11-2023 Patient encounter procedure Ashtyn Javier APRN.CNP Work Phone: [facility] Comment on above: Carcinoma of upper-o uter quadrant of right breast in female, estrogen receptor positive (HCC) (Primary Dx); History of bilateral mastectomy; History of bilateral breast implants; Use of tamoxifen (Nolvadex) Start: 03-10-2023 Encounter for birgit soriano adult medical examination without abnormal findings GALLO SANCHES [facility] Start: 03-10-2023 End: 03-10-2023 Patient encounter procedure Gallo Sanches DO Work Phone: Family Medicine [place] Comment on above: Well adult exam (Michelle ramirez Dx); Dyslipidemia; Patellofemoral arthralgia of left knee; Chronic right-sided thoracic back pain; Osteoporosis, unspecified osteoporosis type, unspecified pathological fracture presence Start: 03-10-2023 End: 03-10-2023 Patient encounter status Gallo Sanches DO Work Phone: [facility] Work Phone: Start: 03-09-2023 End: 03-09-2023 Patient encounter procedure Nurse Lyla Durham Work Phone: Endocrinology Comment on above: Other osteoporosis w ithout current pathological fracture (Primary Dx) Start: 03-09-2023 End: 03-09-2023 [facility] Comment on above: Acetabular labrum te ar, right, subsequent encounter (Primary Dx) Start: 02-10-2023 Patient encounter status Ingris Sanches DO Work Phone: [facility] Work Phone: Start: 02-10-2023 Telephone encounter Gallo yuen DO Work Phone: Internal Medicine [place] Comment on above: Orders Start: 02-09-2023 End: 02-10-2023 ambulatory GALLO SANCHES DO Facility:B Start: 02-09-2023 End: 02-09-[address] FELICITA CEDILLO MD [facility] Start: 02-06-2023 End: 02-06-2023 Patient encounter procedure Nurse Lyla Durham Mc Work Phone: Endocrinology Comment on above: Other osteoporosis w ithout current pathological fracture (Primary Dx) Start: 02-05-2023 End: 02-05-2023 ambulatory Emg 300) Work Phone: Neurology Start: 02-05-2023 End: 02-05-2023 Patient encounter procedure Emg 1 Neur [facility] (Max Weight: 300) Work Phone: [facility] Start: 2023 End: 2023 ambulatory Salas Sherman PT [facility] Physical Therapy Comment on above: Acetabular labrum te ar, right, subsequent encounter (Primary Dx) Start: 01-19-2023 ambulatory Gallo saxena DO Work Phone: [facility] Comment on above: MRI hip Start: 01-19-2023 E-mail encounter fro m caregiver Gallo Sanches DO Work Phone: [facility] [place] Start: 01-19-2023 Follow-up encounter Gallo yuen DO Work Phone: [facility] Comment on above: Follow up Start: 01-19-2023 Telephone encounter Gallo yuen DO Work Phone: Internal Medicine [place] Start: 01-15-2023 End: 01-15-2023 Subsequent hospital visit by physician [facility] (I-Stat/1.5t) Work Phone: Radiology Comment on above: Pain of right hip [M 25.551] Start: 01-07-2023 End: 01-07-2023 Patient encounter procedure Nurse [facility] Work Phone: Endocrinology Comment on above: Other osteoporosis w ithout current pathological fracture (Primary Dx) Start: 01-02-2023 End: 01-02-2023 Office outpatient visit 25 minutes Prasad Chavez PA-C Work Phone: Orthopaedics Comment on above: Primary osteoarthrit is of left knee (Primary Dx) Start: 12-29-2022 ambulatory Ceci jackson PA-C Work Phone: [facility] [place] Comment on above: Next step Start: 12-17-2022 End: 12-17-2022 Subsequent hospital visit by physician [facility] [address] Radiology Comment on above: Trochanteric bursiti s of right hip [M70.61] Start: 12-09-2022 End: 12-09-2022 ambulatory Salas Sherman PT [facility] Physical Therapy Comment on above: Acetabular labrum te ar, right, subsequent encounter (Primary Dx) Start: 12-08-2022 ambulatory Ceci jackson PA-C Work Phone: G[facility]enterology [place] Comment on above: Next steps Start: 12-05-2022 End: 12-05-2022 Subsequent hospital visit by physician [facility] Work Phone: Nuclear Medicine Comment on above: LUQ pain [R10.12] Start: 12-04-2022 End: 12-04-2022 Patient encounter procedure Nurse Lyla Durham Mc Work Phone: Endocrinology Comment on above: Osteoporosis, unspec ified osteoporosis type, unspecified pathological fracture presence (Primary Dx) Start: 12-01-2022 Telephone encounter Gallo yuen DO Work Phone: [facility] [place] Comment on above: Patient Update Start: 11-27-2022 End: 11-27-2022 ambulatory Salas Sherman PT [facility] Physical Therapy Comment on above: Acetabular labrum te ar, right, subsequent encounter (Primary Dx) Start: 11-25-2022 End: 11-25-2022 Patient encounter procedure Houston Azevedo PA-C Work Phone: [facility] [place] Comment on above: Sinobronchitis (Prim mehreen Dx) Start: 11-24-2022 Telephone encounter Bhavik jackson MD Work Phone: Pain Management Comment on above: Results Start: 11-24-2022 End: 11-24-2022 Subsequent hospital visit by physician [facility] (I-Stat/1.5t) Work Phone: Radiology Comment on above: Chronic right-sided thoracic back pain [M54.6, G89.29] Start: 11-19-2022 End: 11-19-2022 Subsequent hospital visit by physician Xr [facility] [place] Work Phone: Radiology Comment on above: Sore throat [J02.9] Start: 11-19-2022 End: 11-24-2022 Patient encounter procedure Rossi Martinez APRN.CUSTOMER SALES SPECIALIST Work Phone: [facility] [place] Comment on above: Sore throat (Primary Dx); Congestion of upper airway; Wheezing; Acute ear pain, bilateral; Non-recurrent acute serous otitis media of both ears Start: 11-17-2022 End: 11-17-2022 Patient encounter procedure Bhavik Ugarte MD Work Phone: Pain Management Comment on above: Spinal stenosis of l umbar region, unspecified whether neurogenic claudication present (Primary Dx); Chronic right-sided thoracic back pain; Spasm of thoracic back muscle; Neck pain, chronic; Osteoarthritis of spine with radiculopathy, cervical region; Numbness and tingling in right hand; Lumbar degenerative disc disease Start: 11-11-2022 End: 11-12-2022 ambulatory Renan Paige MD Work Phone: [facility] Comment on above: Hip Ultrasound Nasonex Acetabular labrum te ar, right, subsequent encounter (Primary Dx) Start: 11-11-2022 Patient encounter procedure Gallo Sanches DO Work Phone: [facility] Comment on above: Consult to orthopedi cs Start: 11-10-2022 ambulatory Gallo saxena DO Work Phone: [facility] Comment on above: Spine doctor recomme ndation Start: 11-07-2022 End: 11-07-2022 Patient encounter procedure Renan Paige MD Work Phone: [facility] Comment on above: Trochanteric bursiti s of right hip (Primary Dx); Lumbar back pain Start: 11-06-2022 End: 11-06-2022 ambulatory Salas Shemran PT [facility] Physical Therapy Comment on above: Acetabular labrum te ar, right, subsequent encounter (Primary Dx) Start: 11-04-2022 End: 11-04-2022 ambulatory Salas Sherman PT [facility] Physical Therapy Comment on above: Acetabular labrum te ar, right, subsequent encounter (Primary Dx) Start: 11-04-2022 End: 11-04-2022 Patient encounter procedure Nurse Lyla Durham Mc Work Phone: Endocrinology Comment on above: Other osteoporosis w ithout current pathological fracture (Primary Dx) Start: 11-03-2022 ambulatory Gallo saxena DO Work Phone: [facility] Comment on above: Knee xray Start: 10-31-2022 ambulatory Gallo saxena DO Work Phone: [facility] Comment on above: Meloxicam Start: 10-31-2022 Telephone encounter Gallo yuen DO Work Phone: [facility] Comment on above: Results Start: 10-31-2022 End: 10-31-2022 Subsequent hospital visit by physician Xr [facility] [place] Work Phone: Radiology Comment on above: Chronic pain of left knee [M25.562, G89.29] Start: 10-31-2022 End: 10-31-2022 Patient encounter procedure Gallo Sanches DO Work Phone: [facility] Comment on above: Chronic pain of left knee (Primary Dx); Recurrent left knee instability; Lateral meniscus derangement, left; Chronic right-sided thoracic back pain; Spasm of thoracic back muscle; Neck pain, chronic; Osteoarthritis of spine with radiculopathy, cervical region; Numbness and tingling in right hand; Osteoarthritis of spine with radiculopathy, thoracic region; DDD (degenerative disc disease), thoracic; Paresthesia of skin Start: 10-30-2022 End: 10-30-2022 ambulatory Salas Sherman [facility] Physical Therapy Comment on above: Acetabular labrum te ar, right, subsequent encounter (Primary Dx) Start: 10-29-2022 End: 10-29-2022 Patient encounter procedure Ceci Nava PA-C Work Phone: [facility] [place] Comment on above: LUQ pain (Primary Dx ); Bloating; Early satiety Start: 10-28-2022 End: 10-28-2022 ambulatory Salas Sherman [facility] Physical Therapy Comment on above: Acetabular labrum te ar, right, subsequent encounter (Primary Dx) Start: 10-14-2022 End: 10-14-2022 ambulatory Salas Sherman [facility] Physical Therapy Comment on above: Acetabular labrum te ar, right, subsequent encounter (Primary Dx) Start: 10-06-2022 End: 10-06-2022 ambulatory Salas Sherman [facility] Physical Therapy Comment on above: Acetabular labrum te ar, right, subsequent encounter (Primary Dx) Start: 10-01-2022 End: 10-01-2022 Patient encounter procedure Nurse Lyla Durham Work Phone: Endocrinology Comment on above: Other osteoporosis w ithout current pathological fracture (Primary Dx) Start: 09-30-2022 End: 09-30-2022 ambulatory Salas Sherman [facility] Physical Therapy Comment on above: Acetabular labrum te ar, right, subsequent encounter (Primary Dx) Start: 09-25-2022 Telephone encounter Esme Cortes i, MD Work Phone: Endocrinology Comment on above: CAM Order Request Start: 09-23-2022 End: 09-23-2022 Subsequent hospital visit by physician Xr [facility]Inject/Aspr Trnsp Bl Radiology Comment on above: Sacroiliitis (HCC) [ M46.1] Start: 09-19-2022 End: 09-19-2022 ambulatory Salas Sherman [facility] Physical Therapy Comment on above: Acetabular labrum te ar, right, subsequent encounter (Primary Dx) Start: 09-16-2022 End: 09-16-2022 Patient encounter procedure Renan Paige MD Work Phone: [facility] Comment on above: Sacroiliitis (HCC) ( Primary Dx); Piriformis syndrome of right side; Trochanteric bursitis of right hip Start: 09-11-2022 End: 09-11-2022 ambulatory Salas Sherman [facility] Physical Therapy Comment on above: Acetabular labrum te ar, right, subsequent encounter (Primary Dx) Start: 09-08-2022 ambulatory [facility] Comment on above: Evenity Injections Start: 09-08-2022 E-mail encounter jennifer m caregiver [facility] Provider JORDY DURHAM Start: 09-05-2022 Telephone encounter Esme Cortes i, MD Work Phone: Endocrinology Comment on above: PA--EVENITY 2022 Start: 08-22-2022 Telephone encounter Esme Cortes i, MD Work Phone: Endocrinology Comment on above: scheduling nurse vis it Start: 07-15-2022 End: 07-15-2022 Patient encounter procedure Aida Madden PA-C Work Phone: [facility] Comment on above: Acetabular labrum te ar, right, subsequent encounter (Primary Dx) Start: 07-14-2022 End: 07-14-2022 ambulatory Esme Wisdom MD Work Phone: Endocrinology Comment on above: Other osteoporosis w ithout current pathological fracture (Primary Dx) Start: 07-14-2022 End: 07-14-2022 Telemedicine consultation with patient Esme Wisdom MD Work Phone: [facility] Start: 07-13-2022 Refill Olya haines MD Work Phone: [facility] Hematology/Oncology Comment on above: Refill Request Start: 06-03-2022 End: 06-03-2022 Subsequent hospital visit by physician Xr [facility] [place] Work Phone: Radiology Comment on above: Osteoporosis, unspec ified osteoporosis type, unspecified pathological fracture presence [M81.0] Start: 06-02-2022 Orders Only Esme Wisdom MD Work Phone: Endocrinology Comment on above: Osteoporosis, unspec ified osteoporosis type, unspecified pathological fracture presence (Primary Dx) Start: 05-28-2022 ambulatory Gallo saxnea DO Work Phone: Family Medicine [place] Comment on above: Injections for osteo porosis Start: 05-27-2022 ambulatory ESME WISDOM Facility:[facility] Start: 05-27-2022 End: 05-27-2022 Subsequent hospital visit by physician Xr [facility] Radiology Comment on above: Arrived Start: 05-27-2022 End: 05-27-2022 Patient encounter procedure Esme Wisdom MD Work Phone: Endocrinology Comment on above: Osteoporosis, unspec ified osteoporosis type, unspecified pathological fracture presence Start: 05-21-2022 ambulatory Gallo saxena DO Work Phone: Family Medicine [place] Comment on above: MRI breast Start: 05-21-2022 E-mail encounter fro m caregiver Gallo Sanches DO Work Phone: [facility] [place] Start: 05-21-2022 End: 05-21-2022 Subsequent hospital visit by physician [facility] (1.5t) Radiology Comment on above: Encounter for breast cancer screening using non-mammogram modality [Z12.39] Start: 05-16-2022 End: 05-16-2022 Patient encounter procedure Paige Sylvester SARA Work Phone: [facility] [place] Comment on above: Chronic cough (Prima ry Dx) Start: 05-15-2022 End: 05-15-2022 ambulatory Salas Sherman PT [facility] Physical Therapy Comment on above: Tear of right acetab ular labrum, subsequent encounter (Primary Dx) Start: 05-06-2022 Telephone encounter Gallo gates Work Phone: [facility] Comment on above: Breast MRI Start: 05-03-2022 Telephone encounter Gallo Bo yuen DO Work Phone: [facility] Comment on above: Question Start: 05-02-2022 ambulatory Gallo Bo Cheng son DO Work Phone: [facility] Comment on above: Osteoporosis Breast MRI Start: 04-29-2022 End: 04-29-2022 ambulatory Salas Sherman PT [facility] Physical Therapy Comment on above: Tear of right acetab ular labrum, subsequent encounter (Primary Dx) Start: 04-24-2022 ambulatory Olya haines MD Work Phone: [facility] Hematology/Oncology Comment on above: Breast index test Start: 04-15-2022 End: 04-15-2022 ambulatory Salas Sherman PT [facility] Physical Therapy Comment on above: Tear of right acetab ular labrum, subsequent encounter (Primary Dx) Start: 04-08-2022 End: 04-08-2022 ambulatory Renan Paige MD Work Phone: [facility] Comment on above: Acetabular labrum te ar, right, subsequent encounter (Primary Dx) Start: 04-08-2022 End: 04-08-2022 Telemedicine consultation with patient Renan Paige MD Work Phone: [facility] [address] Start: 04-03-2022 End: 04-03-2022 Patient encounter procedure Claire Chaney MD Work Phone: [facility] Comment on above: Mass of breast, unsp ecified laterality (Primary Dx); History of breast cancer; Carcinoma of upper-outer quadrant of right breast in female, estrogen receptor positive (HCC) Start: 04-01-2022 End: 04-01-2022 ambulatory Salas Sherman [facility] Physical Therapy Comment on above: Tear of right acetab ular labrum, subsequent encounter (Primary Dx) Start: 03-19-2022 End: 03-19-2022 ambulatory Salas Sherman [facility] Physical Therapy Comment on above: Tear of right acetab ular labrum, subsequent encounter (Primary Dx) Question about testi ng Start: 03-14-2022 ambulatory Olya haines MD Work Phone: [facility] Hematology/Oncology Comment on above: Test results Start: 03-13-2022 End: 03-13-2022 ambulatory Salas Sherman [facility] Physical Therapy Comment on above: Tear of right acetab ular labrum, subsequent encounter (Primary Dx) Start: 02-21-2022 Telephone encounter Izabella bravo APRGONZALO Work Phone: [facility] Comment on above: Results Start: 02-21-2022 End: 02-21-2022 ambulatory Aida Madden PA-C Work Phone: [facility] Comment on above: Tear of right acetab ular labrum, subsequent encounter (Primary Dx) Start: 02-21-2022 End: 02-21-2022 Telemedicine consultation with patient Aida Madden PA-C Work Phone: [facility] [address] Start: 02-19-2022 End: 02-19-2022 ambulatory Salas Sherman [facility] Physical Therapy Comment on above: Tear of right acetab ular labrum, subsequent encounter (Primary Dx) Start: 02-18-2022 [facility] Olya Brar MD Work Phone: [facility] Hematology/Oncology Comment on above: Another upcoming otto paul Start: 02-18-2022 ambulatory Olya haines MD Work Phone: [facility] Start: 02-13-2022 End: 02-13-2022 ambulatory Salas Sherman PT [facility] Comment on above: Tear of right acetab ular labrum, subsequent encounter (Primary Dx) Start: 02-12-2022 ambulatory Gallo Cheng son DO Work Phone: [facility] Comment on above: Hep. C Screening Start: 02-09-2022 ambulatory Gallo Cheng son DO Work Phone: [facility] Comment on above: Scheduled Testing Start: 01-30-2022 End: 01-30-2022 ambulatory Salas Sherman PT [facility] Comment on above: Tear of right acetab ular labrum, subsequent encounter (Primary Dx) Start: 01-23-2022 End: 01-23-2022 ambulatory Salas Sherman PT [facility] Comment on above: Tear of right acetab ular labrum, subsequent encounter (Primary Dx) Start: 01-21-2022 End: 01-21-2022 Patient encounter procedure Aida Madden PA-C Work Phone: [facility] Comment on above: Tear of right acetab ular labrum, subsequent encounter (Primary Dx) Start: 01-15-2022 End: 01-15-2022 ambulatory Salas Sherman PT [facility] Comment on above: Tear of right acetab ular labrum, subsequent encounter (Primary Dx) Start: 01-13-2022 ambulatory Wily nava AT Work Phone: [facility] Comment on above: Post Op Call Start: 01-10-2022 End: 01-10-2022 ambulatory Salas Sherman PT [facility] Comment on above: Tear of right acetab ular labrum, subsequent encounter (Primary Dx) Start: 01-09-2022 End: 01-09-2022 Subsequent hospital visit by physician [facility] Comment on above: Tear of right acetab ular labrum, subsequent encounter [S73.191D] Start: 01-03-2022 End: 01-03-2022 ambulatory Aida BROWNINGC Work Phone: [facility] Comment on above: Tear of right acetab ular labrum, subsequent encounter (Primary Dx) Start: 01-03-2022 End: 01-03-2022 Telemedicine consultation with patient Aida Madden PA-C Work Phone: [facility] [address] Start: 12-31-2021 ambulatory Paige Sylvester APR N.CUSTOMER SALES SPECIALIST Work Phone: [facility] Comment on above: Omperazole prescript ion Start: 12-27-2021 End: 12-27-2021 ambulatory Aida Mendozac PA-C Work Phone: [facility] Comment on above: Tear of right acetab ular labrum, subsequent encounter (Primary Dx) Start: 12-27-2021 End: 12-27-2021 Telemedicine consultation with patient Aida Mendozac PA-C Work Phone: [facility] [address] Start: 12-19-2021 End: 12-19-2021 Patient encounter procedure Paige Sylvester COMPLIANCE ADVISOR.CUSTOMER SALES SPECIALIST Work Phone: [facility] Comment on above: Gastroesophageal ref lux disease, unspecified whether esophagitis present (Primary Dx) Start: 12-17-2021 End: 12-17-2021 ambulatory Jasmin Yeung PT [facility] Phone: [facility] Start: 12-17-2021 End: 12-17-2021 Manual pelvic examination Jsamin Yeung PT Work Phone: [facility] Comment on above: Pelvic pain in femal e (Primary Dx); Dyspareunia, psychogenic; Cystocele with prolapse Start: 12-16-2021 End: 12-16-2021 Admission to [facility] 1 Work Phone: [facility] Start: 12-16-2021 End: 12-16-2021 ambulatory [facility] 1 Work Phone: Pre Anesthesia Comment on above: Pre-operative examin ation (Primary Dx); Tear of right acetabular labrum, subsequent encounter; Carcinoma of upper-outer quadrant of right breast in female, estrogen receptor positive (HCC); H. pylori infection; Gastroesophageal reflux disease with esophagitis without hemorrhage; Anxiety; Iron deficiency anemia, unspecified iron deficiency anemia type Start: 12-16-2021 End: 12-16-2021 Preprocedural examination done [facility] [place] 1 Work Phone: Pre Anesthesia Start: 12-16-2021 Telephone encounter Jessica Arenas APRN.CUSTOMER SALES SPECIALIST Work Phone: Pre Anesthesia Comment on above: Pre-op Tamoxifen Ins tructions; Orders Start: 12-09-2021 [facility] Wily Zavaleta AT Work Phone: [facility] Comment on above: Schedule Surgery Start: 12-09-2021 ambulatory Wily nava AT Work Phone: [facility] [address] Start: 12-06-2021 End: 12-06-2021 ambulatory Jasmin Yeung PT Work Phone: [facility] Start: 12-06-2021 End: 12-06-2021 Manual pelvic examination Jasmin Yeung PT Work Phone: [facility] Comment on above: Pelvic pain in femal e (Primary Dx); Dyspareunia, psychogenic; Cystocele with prolapse Start: 12-06-2021 End: 12-06-2021 Patient encounter procedure Renan Paige MD Work Phone: [facility] Comment on above: Acetabular labrum te ar, right, initial encounter (Primary Dx); Right hip pain; Sacroiliac joint dysfunction of right side Start: 12-01-2021 ambulatory Gallo saxena DO Work Phone: [facility] Comment on above: Prescription for Omp erazole Start: 11-22-2021 End: 11-22-2021 Patient encounter procedure Gallo Sanches DO Work Phone: [facility] Comment on above: Hoarseness (Primary Dx); Cough; Gastroesophageal reflux disease with esophagitis without hemorrhage; H. pylori infection Start: 11-19-2021 End: 11-19-2021 ambulatory Jasmin Yeung PT Work Phone: [facility] Start: 11-19-2021 End: 11-19-2021 Manual pelvic examination Jasmin Yeung PT Work Phone: [facility] Comment on above: Pelvic pain in femal e (Primary Dx); Dyspareunia, psychogenic; Cystocele with prolapse Start: 11-11-2021 Telephone encounter Paige Sylvester APRN.CUSTOMER SALES SPECIALIST Work Phone: Gastroenterology Comment on above: Results Start: 11-08-2021 End: 11-08-2021 ambulatory Jasmin Buenoell PT Work Phone: [facility] Start: 11-08-2021 End: 11-08-2021 Manual pelvic examination Jasmin Yeung PT Work Phone: [facility] Comment on above: Pelvic pain in femal e (Primary Dx); Dyspareunia, psychogenic; Cystocele with prolapse Start: 11-07-2021 End: 11-07-2021 ambulatory Olya Brar MD Work Phone: [facility] Hematology/Oncology Comment on above: MRI results Acute right-sided lo w back pain with right-sided sciatica (Primary Dx); Osteoarthritis of spine with radiculopathy, lumbar region Start: 11-05-2021 End: 11-05-2021 Subsequent hospital visit by physician Alejandro Hatfield MD Work Phone: Ambulatory Surgery Comment on above: Hoarseness [R49.0] Start: 11-04-2021 End: 11-04-2021 Subsequent hospital visit by physician Mri [facility] Wstr (I-Stat/1.5t) Work Phone: Radiology Comment on above: Other specified diso rders of bone, other site [M89.8X8] Start: 11-01-2021 End: 11-01-2021 Patient encounter procedure Paige Sylvester APRN.CUSTOMER SALES SPECIALIST Work Phone: [facility] [place] Comment on above: Hoarseness (Primary Dx); Dysphagia, unspecified type Start: 11-01-2021 End: 11-01-2021 ambulatory Jasmin Gamal PT Work Phone: [facility] Start: 11-01-2021 End: 11-01-2021 Manual pelvic examination Jasmin Gamal PT Work Phone: [facility] Comment on above: Pelvic pain in femal e (Primary Dx); Dyspareunia, psychogenic; Cystocele with prolapse Start: 10-24-2021 End: 10-24-2021 ambulatory Salas Sherman PT Work Phone: [facility] Comment on above: Acute right-sided lo w back pain with right-sided sciatica (Primary Dx); Osteoarthritis of spine with radiculopathy, lumbar region Start: 05-27-2021 End: 05-27-2021 Subsequent hospital visit by physician Sherri [facility] Work Phone: Radiology Comment on above: Right hip pain [M25. 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, right Start: 05-13-2019 End: 05-13-2019 Subsequent hospital visit by physician Ryland Kelly Work Phone: [facility] Procedures Date Procedure Procedure Detail Performing Clinician Start: 03-14-2025 Lipid 1996 panel - S marycarmen or Plasma Gallo Sanches DO Work Phone: Start: 09-12-2024 INFLUENZA A&B MOLECULAR (POC) Segun ALCARAZ Work Phone: Start: 08-26-2024 Breath hydrogen/methane test Ceci Luna PA-C Work Phone: Start: 04-29-2024 Esophagogastroduoden oscopy transoral diagnostic Ceci Luna PA-C Work Phone: Start: 03-14-2024 Lipid 1995 panel - S marycarmen or Plasma Gallo Sanches DO Work Phone: Start: 02-10-2024 Mra head w/o contrst material Elias Hernandez MD Work Phone: Start: 01-13-2024 Nitric oxide gas determination Javier Edmonds MD Work Phone: Start: 12-24-2023 Brncdilat rspse spmt ry pre&post-brncdilat admn Rossi Martinez COMPLIANCE ADVISOR.CUSTOMER SALES SPECIALIST Work Phone: Start: 12-01-2023 Radiologic exam chest 2 views Rossi Martinez COMPLIANCE ADVISOR.CUSTOMER SALES SPECIALIST Work Phone: Start: 11-26-2023 Lipid 1996 panel - S marycarmen or Plasma Rossi Martinez COMPLIANCE ADVISOR.CUSTOMER SALES SPECIALIST Work Phone: Start: 07-09-2023 Lipid 1995 panel - S marycarmen or Plasma Gallo Sanches DO Work Phone: Start: 04-08-2023 Radiologic exam abdomen 1 view Ceci Luna PA-C Work Phone: Start: 03-16-2023 Colonoscopy flx dx w /collj spec when pfrmd Ceci Luna PA-C Work Phone: Start: 03-16-2023 Colonoscopy Ashtyn santana COMPLIANCE ADVISOR.CUSTOMER SALES SPECIALIST Work Phone: Start: 03-11-2023 History of mastectomy History of mastectomy Ashtyn Javier COMPLIANCE ADVISOR.CUSTOMER SALES SPECIALIST Work Phone: Start: 03-09-2023 Lipid 1995 panel - S marycarmen or Plasma Salas Sherman PT Start: 02-05-2023 Nerve conduction ricci dies 5-6 studies Gallo Sanches DO Work Phone: Start: 01-15-2023 Mri any jt lower ext rem w/o contrast matrl Gallo Sanches DO Work Phone: Start: 01-02-2023 Arthrocentesis aspir &/inj major jt/bursa w/o us Prasad Chavez PA-C Work Phone: Start: 12-17-2022 Us compl joint r-t w /image documentation Renan Paige MD Work Phone: Start: 12-05-2022 Gastric emptying imaging study Ceci Luna PA-C Work Phone: Start: 11-24-2022 Mri spinal canal tho racic w/o contrast matrl Gallo Lambertrison DO Work Phone: Start: 11-19-2022 Radiologic exam chest 2 views Rossi Martinez COMPLIANCE ADVISOR.CUSTOMER SALES SPECIALIST Work Phone: Start: 11-19-2022 COVID WITH FLUA+B, ROUTINE Rossi Martinez COMPLIANCE ADVISOR.CUSTOMER SALES SPECIALIST Work Phone: Start: 11-19-2022 STREP A MOLECULAR (POC) Rossi Martinez COMPLIANCE ADVISOR.CUSTOMER SALES SPECIALIST Work Phone: Start: 10-31-2022 Radex spine cervical 4 or 5 views Gallo Soriano Sanches DO Work Phone: Start: 10-31-2022 Radiologic exam knee complete 4/more views Gallo Lambertrison DO Work Phone: Start: 09-23-2022 Arthrocentesis aspir &/inj major jt/bursa w/us Renan Paige MD Work Phone: Start: 06-03-2022 Radex spine lumbosacral 2/3 views Esme Wisdom MD Work Phone: Start: 05-21-2022 Mri breast without&w ith contrast w/cad bilateral Gallo Lambertrison DO Work Phone: Start: 01-09-2022 Radex hip unilateral with pelvis 2-3 views Aida Madden PA-C Work Phone: Start: 11-05-2021 Esophagoscp rig espinoza soral hypopharynx crv esoph Paige Sylvester COMPLIANCE ADVISOR.CUSTOMER SALES SPECIALIST Work Phone: Start: 11-04-2021 Mri any jt lower ext rem w/o & w/contrast matrl Minnie Lyons COMPLIANCE ADVISOR.CUSTOMER SALES SPECIALIST Work Phone: Start: 10-24-2021 End: 10-24-2021 Calc BMI norm parameters Oliver steve MD Work Phone: Start: 10-24-2021 End: 10-24-2021 Current tobacco non-user cad cap copd pv dm Oliver Johnson MD Work Phone: Start: 10-24-2021 End: 10-24-2021 Doc rsn no hbp scrn or f/u Oliver madrid MD Work Phone: Start: 10-24-2021 End: 10-24-2021 Docrev cur meds by elig clin Oliver alexander MD Work Phone: Start: 10-24-2021 End: 10-24-2021 Pain neg no plan Oliver Johnson MD Work Phone: Start: 10-24-2021 End: 10-24-2021 Patient encounter procedure Oliver johnson MD Work Phone: Start: 05-27-2021 Radex hip unilateral with pelvis 2-3 views Gallo Sanches DO Work Phone: Start: 05-13-2019 Radex foot complete minimum 3 views Ryland Klely Work Phone: Start: 11-12-[address] Freddie CEDILLO MD Comment on above: right foot Start: 07-23-[address] Freddie CEDILLO MD Comment on above: LEFT FOOT Start: 03-01-2018 Colonoscopy Salas Ashby on PT Work Phone: Start: 11-01-2017 Bilateral reconstruc tion of breasts DR FELICITA CEDILLO MD Start: 08-03-[address] FELICITA CEDILLO MD Start: 08-03-2017 Revision of mastectomy scar DR FELICITA CEDILLO MD Comment on above: Left breast Colonoscopy DR FELICITA Steve MD Foot structure (body structure) DR FELICITA CEDILLO MD Comment on above: bilateral History of bilateral mastectomy History of bilateral mastectomy Ashtyn Javier COMPLIANCE ADVISOR.CUSTOMER SALES SPECIALIST Work Phone: History of bilateral mastectomy History of bilateral mastectomy Ashtyn Javier COMPLIANCE ADVISOR.CUSTOMER SALES SPECIALIST Work Phone: NEGATED: Highlighted rowStart: 10-24-2021 End: 10-24-2021 Documentation of current medications Cheyenne Elam RN Plan of Treatment Date Care Activity Detail Author Start: 03-14-2030 Lipid panel Lipid Screening [facility] Start: 03-14-2029 Lipid panel Lipid Screening [facility] Start: 11-25-2028 Lipid panel Lipid Screening [facility] Start: 07-09-2028 Lipid panel Lipid Screening [facility] Start: 03-16-2028 Colonoscopy COLONOSCOPY [facility] Start: 03-16-2028 COLORECTAL CANCER SCREENING COLORECTAL CANCER SCREENING [facility] Start: 03-16-2028 Screening for malignant neoplasm of colon [facility] Start: 03-14-2028 Diabetes Screening Diabetes Screening [facility] Start: 03-09-2028 Lipid 1996 panel - Serum or Plasma Lipid Screening [facility] Start: 03-09-2028 LIPID SCREEN LIPID SCREEN [facility] Start: 2028 RSV Immunization aged 60 or older (1 - 1-dose 60+ series) RSV Immunization aged 60 or older (1 - 1-dose 60+ series) [facility] Start: 03-14-2027 Diabetes Screening Diabetes Screening [facility] Start: 02-17-2027 LIPID SCREEN LIPID SCREEN [facility] Start: 11-25-2026 Diabetes Screening Diabetes Screening [facility] Start: 08-28-2026 Diabetes Screening Diabetes Screening [facility] Start: 07-09-2026 LIPID SCREEN LIPID SCREEN [facility] Start: 03-13-2026 End: 03-13-2026 Patient encounter procedure 03/13/2026 10:00 AM EDT Office Visit [facility] [address] [place] [phone] Ashtyn Javier APRN.CUSTOMER SALES SPECIALIST [address] [place] [address] Yearly CBE [facility] Comment on above: Yearly CBE Start: 03-09-2026 DIABETES SCREEN DIABETES SCREEN [facility] Start: 03-09-2026 Diabetes Screening Diabetes Screening [facility] Start: 07-24-2025 End: 07-24-2025 Patient encounter procedure 07/24/2025 9:15 AM EST Office Visit [facility] [address] [place] [phone] Ceci Luna PA-C [address] [place], [place] [phone] 3 Month Follow Up [facility] Comment on above: 3 Month Follow Up Start: 07-10-2025 End: 07-10-2025 Patient encounter procedure 07/10/2025 11:00 AM EST Office Visit Neurology [facility] [address] [place] [address] Yovani Donohue MD [address] [place] [address] Neurology [facility] Start: 05-30-2025 DIABETES SCREEN DIABETES SCREEN [facility] Start: 05-25-2025 End: 05-25-2025 Patient encounter procedure [facility] Comment on above: pre-op for left knee surgery on 06/25 Start: 05-17-2025 End: 05-17-2025 Patient encounter procedure 05/17/2025 1:00 PM EDT Office Visit Endocrinology [address] [facility] [address] [place] [address] [facility] Comment on above: [facility] Start: 04-11-2025 End: 04-11-2025 Patient encounter procedure 04/11/2025 11:40 AM EDT Office Visit [facility] [place] [phone] Ceci Luna PA-C [address] [place] [address] ibs with constipation, 11:40 appt time ok'd per Miriam [facility] [place] Comment on above: ibs with constipation, 11:40 appt time o k'd per Miriam Start: 04-03-2025 Influenza vaccination [facility] Start: 03-20-2025 End: 03-20-2025 Patient encounter procedure 03/20/2025 7:40 AM EDT Office Visit [facility] [address] [place] [address] Gallo Sanches DO [address] [place] [address] physical/resheduled per pt [facility] Comment on above: physical/resheduled per pt Start: 03-13-2025 End: 03-13-2025 Patient encounter procedure 03/13/2025 11:00 AM EDT Office Visit [facility] [address] [place] [phone] Ashtyn Javier APRN.CUSTOMER SALES SPECIALIST [address] [place] [address] 1 year CBE [facility] Comment on above: 1 year CBE Start: 03-06-2025 End: 06-05-2025 25-hydroxyvitamin D3 [Mass/volume] in Serum or Plasma VITAMIN D 25 HYDROXY Lab Routine Well adult exam Vitamin D deficiency Expected: 03/06/2025, Expires: 06/05/2025 [facility] Comment on above: Expected: 03/06/2025, Expires: Start: 03-06-2025 End: 06-05-2025 CBC W Auto Differential panel - Blood COMPLETE BLOOD COUNT AND DIFFERENTIAL Lab Routine Well adult exam Hyperlipidemia, mixed Anemia, unspecified type Expected: 03/06/2025, Expires: 06/05/2025 [facility] Comment on above: Expected: 03/06/2025, Expires: Start: 03-06-2025 End: 06-05-2025 Comprehensive metabolic 2000 panel - Serum or Plasma COMPREHENSIVE METABOLIC PANEL Lab Routine Well adult exam Hyperlipidemia, mixed Expected: 03/06/2025, Expires: 06/05/2025 [facility] Work Phone: Comment on above: Expected: 03/06/2025, Expires: Start: 03-06-2025 End: 06-05-2025 Hemoglobin A1c in Blood HEMOGLOBIN A1C Lab Routine Well adult exam Expected: 03/06/2025, Expires: 06/05/2025 [facility] Comment on above: Expected: 03/06/2025, Expires: Start: 03-06-2025 End: 06-05-2025 Lipid 1996 panel - Serum or Plasma LIPID PANEL, FASTING Lab Routine Well adult exam Hyperlipidemia, mixed Expected: 03/06/2025, Expires: 06/05/2025 [facility] Comment on above: Expected: 03/06/2025, Expires: Start: 03-06-2025 End: 06-05-2025 Thyrotropin [Units/volume] in Serum or Plasma THYROID STIMULATING HORMONE Lab Routine Well adult exam Expected: 03/06/2025, Expires: 06/05/2025 [facility] Comment on above: Expected: 03/06/2025, Expires: Start: 02-17-2025 DIABETES SCREEN DIABETES SCREEN [facility] Start: 01-30-2025 End: 01-30-2025 Patient encounter procedure 01/30/2025 10:05 AM EDT Office Visit [facility] [address] [facility] [place] [address] Ceci Luna PA-C [address] [facility] [place] [address] f/u for ibs [facility] Comment on above: f/u for ibs Start: 01-25-2025 End: 02-24-2025 US Abdomen RUQ US ABD RIGHT UPPER QUADRANT Radiology Routine Liver cyst Expected: 01/25/2025, Expires: 02/24/2025 [facility] Work Phone: Comment on above: Expected: 01/25/2025, Expires: Start: 01-17-2025 End: 01-17-2025 Patient encounter procedure 01/17/2025 12:00 PM EDT Office Visit Family [facility] [place] [address] [place], [place] [phone] Gallo Sanches DO [address] [place] [address] est well [facility] Comment on above: est well Start: 01-02-2025 End: 01-02-2025 Patient encounter procedure 01/02/2025 10:00 AM EDT Office Visit Neurology [facility] [address] [place] [address] Yovani Donohue MD [address] [place] [address] F/U Neurology [facility] Comment on above: F/U Start: 12-16-2024 DIABETES SCREEN DIABETES SCREEN [facility] Start: 11-09-2024 End: 11-09-2024 Patient encounter procedure Endocrinology Comment on above: 6 month follow up Start: 08-26-2024 End: 08-26-2024 Nursing evaluation of patient and report 08/26/2024 10:30 AM EST Nurse Visit [facility] Gastroenterology [facility] [address] [facility] [address] [place], [place] [phone] [facility], Nurse [facility] [address] [facility] [address] [place] [address] Irritable bowel syndrome with constipation [K58.1] [facility] Gastroenterology [facility] Comment on above: Irritable bowel syndrome with constipati on [K58.1] Start: 08-01-2024 End: 08-01-2024 Patient encounter procedure 08/01/2024 10:05 AM EST Office Visit [facility] [place] [id number] [facility] [place] [address] Ceci Luna PA-C [address] [place] [address] 6 month follow up office visit, gerd, non-celiac gluten sensitivity [facility] [place] Comment on above: 6 month follow up office visit, gerd, no n-celiac gluten sensitivity Start: 07-09-2024 DIABETES SCREEN DIABETES SCREEN [facility] Start: 07-04-2024 End: 07-04-2024 Patient encounter procedure 07/04/2024 9:00 AM EST Office Visit Neurology [facility] [address] [place] [address] Yovani Donohue MD [address] [place], [place] [phone] 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] Neurology [facility] Comment on above: Hemifacial spasm of left side of face [G 51.32] Start: 05-30-2024 End: 05-30-2024 Patient encounter procedure 05/30/2024 7:45 AM EDT Appointment Radiology [address] [place] [phone] Age-related osteoporosis without current pathological fracture [M81.0] Radiology Comment on above: Age-related osteoporosis without current pathological fracture [M81.0] Start: 05-17-2024 End: 05-17-2024 ambulatory 05/17/2024 3:00 PM EDT OT/PT/Speech Visit [facility] [address] [place] [address] Salas Sherman, PT It band syndrome, 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] [facility] Comment on above: It band syndrome, 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] Start: 04-29-2024 End: 04-29-2024 Patient encounter procedure Endocrinology Comment on above: prolia Start: 04-18-2024 End: 04-18-2024 ambulatory 04/18/2024 7:15 AM EDT Results Only [facility] [address] [place] [address] [facility] Start: 04-14-2024 End: 04-14-2024 Anesthesia consultation 04/14/2024 11:59 PM EDT Anesthesia Event Ambulatory Surgery [address] [facility] [place] [address] Annia Loza, COMPLIANCE ADVISOR.CODE ENFORCEMENT INSPECTOR [id number] [place], [place] [id number] Ambulatory Surgery Start: 04-12-2024 End: 04-12-2024 ambulatory [facility] Comment on above: 1 year Start: 04-11-2024 End: 04-11-2024 Patient encounter procedure 04/11/2024 9:00 AM EDT Office Visit Neurology [facility] [address] [place] [address] Yovani Donohue MD [address] [place] [address] 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] Neurology [facility] Comment on above: Hemifacial spasm of left side of face [G 51.32] Start: 04-03-2024 Covid-19 Vaccine ( season) Covid-19 Vaccine ( season) [facility] Start: 04-03-2024 Covid-19 Vaccine ( season) Covid-19 Vaccine ( season) [facility] Start: 04-03-2024 Influenza vaccination [facility] Start: 03-16-2024 End: 06-15-2024 25-hydroxyvitamin D3 [Mass/volume] in Serum or Plasma VITAMIN D 25 HYDROXY Lab Routine Anemia, unspecified type Vitamin D deficiency Expected: 03/16/2024, Expires: 06/15/2024 [facility] Comment on above: Expected: 03/16/2024, Expires: Start: 03-16-2024 End: 06-15-2024 CBC W Auto Differential panel - Blood COMPLETE BLOOD COUNT AND DIFFERENTIAL Lab Routine Anemia, unspecified type Expected: 03/16/2024, Expires: 06/15/2024 [facility] Comment on above: Expected: 03/16/2024, Expires: Start: 03-16-2024 End: 06-15-2024 Cobalamin (Vitamin B12) [Mass/volume] in Serum or Plasma VITAMIN B12 Lab Routine Anemia, unspecified type Fatigue, unspecified type Expected: 03/16/2024, Expires: 06/15/2024 [facility] Comment on above: Expected: 03/16/2024, Expires: Start: 03-16-2024 End: 06-15-2024 Ferritin [Mass/volume] in Serum or Plasma FERRITIN Lab Routine Anemia, unspecified type Expected: 03/16/2024, Expires: 06/15/2024 [facility] Comment on above: Expected: 03/16/2024, Expires: Start: 03-16-2024 End: 06-15-2024 Iron and Iron binding capacity panel - Serum or Plasma IRON AND TIBC Lab Routine Anemia, unspecified type Expected: 03/16/2024, Expires: 06/15/2024 [facility] Work Phone: Comment on above: Expected: 03/16/2024, Expires: Start: 03-16-2024 End: 03-16-2024 Patient encounter procedure 03/16/2024 7:40 AM EDT Office Visit Family Medicine [facility] [address] [place] [address] Gallo Sanches DO [address] [place] [address] PHYSICAL [facility] Comment on above: PHYSICAL Start: 03-11-2024 End: 06-10-2024 CBC W Auto Differential panel - Blood COMPLETE BLOOD COUNT AND DIFFERENTIAL Lab Routine Well adult exam Expected: 03/11/2024, Expires: 06/10/2024 [facility] Comment on above: Expected: 03/11/2024, Expires: Start: 03-11-2024 End: 06-10-2024 Comprehensive metabolic 2000 panel - Serum or Plasma COMPREHENSIVE METABOLIC PANEL Lab Routine Well adult exam Expected: 03/11/2024, Expires: 06/10/2024 [facility] Work Phone: Comment on above: Expected: 03/11/2024, Expires: Start: 03-11-2024 End: 06-10-2024 Lipid 1996 panel - Serum or Plasma LIPID PANEL BASIC Lab Routine Well adult exam Expected: 03/11/2024, Expires: 06/10/2024 [facility] Comment on above: Expected: 03/11/2024, Expires: Start: 03-11-2024 End: 03-11-2024 Patient encounter procedure [facility] Comment on above: 1 year CBE Start: 02-11-2024 End: 02-11-2024 Patient encounter procedure Radiology Comment on above: Hemifacial spasm of left side of face [G 51.32] Start: 02-01-2024 End: 02-01-2024 Patient encounter procedure 02/01/2024 10:55 AM EDT Office Visit G[facility] [address] [place] [address] Ceci Luna PA-C [address] [facility] [place] [address] 6 month follow up office visit, ibs with constipation [facility] Comment on above: 6 month follow up office visit, ibs with constipation Start: 01-26-2024 End: 01-26-2024 Patient encounter procedure 01/26/2024 11:20 AM EDT Office Visit Neurology Headache [facility] [address] [place] [address] [place] [address] [place] [address] Facial twitching [G51.4] Neurology Headache [facility] Comment on above: Facial twitching [G51.4] Start: 01-20-2024 End: 12-31-2024 XR Foot - right 3 Views XR foot 3+ views right Imaging Routine Right foot pain Expected: 01/20/2024, Expires: 12/31/2024 [facility] Work Phone: Comment on above: Expected: 01/20/2024, Expires: Start: 01-20-2024 End: 01-20-2024 Patient encounter procedure 01/20/2024 8:30 AM EDT Office Visit [facility] [address] [place] [address] Ryland Kelly MD [address] [place], [place] [id number] [facility] Start: 01-18-2024 End: 01-18-2024 Patient encounter procedure 01/18/2024 10:45 AM EDT Appointment Radiology [address] [place], [place] [address] Liver cyst [K76.89] Radiology Comment on above: Liver cyst [K76.89] Start: 01-15-2024 End: 01-15-2024 Patient encounter procedure 01/15/2024 1:00 PM EDT Office Visit Pulmonary Medicine [address] [place] [address] Javier Edmonds MD [address] [address] New pt Chronic Cough pft Pulmonary Medicine Comment on above: New pt Chronic Cough pft Start: 12-24-2023 End: 12-24-2023 ambulatory 12/24/2023 8:30 AM EDT Procedure PULM LAB [facility] [address] [facility] [place] [place] [address] W[facility], Pulm Lab [facility] [address] [place] [address] Chronic cough [R05.3]; Persistent dry cough [R05.3] [facility]ULM LAB [facility] Comment on above: Chronic cough [R05.3]; Persistent dry co ugh [R05.3] Start: 12-24-2023 End: 12-24-2023 Patient encounter procedure 12/24/2023 8:00 AM EDT Appointment Cat Scan [address] [place] [address] Chronic cough [R05.3]; Persistent dry cough [R05.3] [facility] Comment on above: Chronic cough [R05.3]; Persistent dry co ugh [R05.3] Start: 10-16-2023 End: 01-15-2024 Comprehensive metabolic 2000 panel - Serum or Plasma COMP METABOLIC PANEL Lab Routine Hyperlipidemia, mixed Expected: 10/16/2023, Expires: 01/15/2024 [facility] Work Phone: Comment on above: Expected: 10/16/2023, Expires: Start: 10-16-2023 End: 01-15-2024 Lipid 1996 panel - Serum or Plasma LIPID PANEL BASIC Lab Routine Hyperlipidemia, mixed Expected: 10/16/2023, Expires: 01/15/2024 [facility] Work Phone: Comment on above: Expected: 10/16/2023, Expires: Start: 09-03-2023 End: 11-03-2023 Comprehensive metabolic 2000 panel - Serum or Plasma COMP METABOLIC PANEL Lab Routine Other osteoporosis without current pathological fracture Expected: 09/03/2023, Expires: 11/03/2023 [facility] Work Phone: Comment on above: Expected: 09/03/2023, Expires: Start: 09-03-2023 End: 05-06-2024 DXA-AXIAL SKELETON DXA-AXIAL SKELETON Radiology Routine Other osteoporosis without current pathological fracture Expected: 09/03/2023, Expires: 05/06/2024 [facility] Work Phone: Comment on above: Expected: 09/03/2023, Expires: Start: 07-03-2023 End: 09-02-2023 Lipid 1996 panel - Serum or Plasma LIPID PANEL BASIC Lab Routine Dyslipidemia Expected: 07/03/2023, Expires: 09/02/2023 [facility] Work Phone: Comment on above: Expected: 07/03/2023, Expires: 4 Start: 05-11-2023 End: 07-11-2023 ALLERGEN, [place] FOOD PANEL GROUP A ALLERGEN, [place] FOOD PANEL GROUP A Lab Routine Irritable bowel syndrome with constipation Bloating Expected: 05/11/2023, Expires: 07/11/2023 [facility] Work Phone: Comment on above: Expected: 05/11/2023, Expires: 3 Start: 05-11-2023 End: 07-11-2023 ALLERGEN, [place]ECK FOOD PANEL GROUP B ALLERGEN, [place]ECK FOOD PANEL GROUP B Lab Routine Irritable bowel syndrome with constipation Bloating Expected: 05/11/2023, Expires: 07/11/2023 [facility] Work Phone: Comment on above: Expected: 05/11/2023, Expires: 3 Start: 05-11-2023 End: 07-11-2023 ALLERGEN, [place]ECK FOOD PANEL GROUP C ALLERGEN, [place]ECK FOOD PANEL GROUP C Lab Routine Irritable bowel syndrome with constipation Bloating Expected: 05/11/2023, Expires: 07/11/2023 [facility] Work Phone: Comment on above: Expected: 05/11/2023, Expires: 3 Start: 04-28-2023 Screening for osteoporosis Bone Density Scan [facility] Start: 04-03-2023 Covid-19 Vaccine () Covid-19 Vaccine () [facility] Start: 04-03-2023 Influenza vaccination [facility] Start: 03-19-2023 HPV TESTING HPV TESTING [facility] Start: 03-19-2023 PAP TESTING PAP TESTING [facility] Start: 03-19-2023 Screening for malignant neoplasm of cervix [facility] Start: 03-01-2023 Colonoscopy COLONOSCOPY [facility] Start: 03-01-2023 COLORECTAL CANCER SCREENING COLORECTAL CANCER SCREENING [facility] Start: 02-18-2023 End: 04-20-2023 25-hydroxyvitamin D3 [Mass/volume] in Serum or Plasma VITAMIN D 25 HYDROXY Lab Routine Wellness examination Expected: 02/18/2023, Expires: 04/20/2023 [facility] Work Phone: Comment on above: Expected: 02/18/2023, Expires: 3 Start: 02-18-2023 End: 04-20-2023 C reactive protein [Mass/volume] in Serum or Plasma C-REACTIVE PROTEIN (CRP) Lab Routine Wellness examination Expected: 02/18/2023, Expires: 04/20/2023 [facility] Work Phone: Comment on above: Expected: 02/18/2023, Expires: 3 Start: 02-18-2023 End: 04-20-2023 Comprehensive metabolic 2000 panel - Serum or Plasma COMP METABOLIC PANEL Lab Routine Wellness examination Expected: 02/18/2023, Expires: 04/20/2023 [facility] Work Phone: Comment on above: Expected: 02/18/2023, Expires: 3 Start: 02-18-2023 End: 04-20-2023 Hemoglobin A1c in Blood HGB A1C Lab Routine Wellness examination Expected: 02/18/2023, Expires: 04/20/2023 [facility] Work Phone: Comment on above: Expected: 02/18/2023, Expires: 3 Start: 02-18-2023 End: 04-20-2023 Lipid 1996 panel - Serum or Plasma LIPID PANEL BASIC Lab Routine Wellness examination Expected: 02/18/2023, Expires: 04/20/2023 [facility] Work Phone: Comment on above: Expected: 02/18/2023, Expires: 3 Start: 02-18-2023 End: 04-20-2023 Thyrotropin [Units/volume] in Serum or Plasma TSH BLD Lab Routine Wellness examination Expected: 02/18/2023, Expires: 04/20/2023 [facility] Work Phone: Comment on above: Expected: 02/18/2023, Expires: 3 Start: 01-30-2023 Influenza vaccination INFLUENZA (#1) [facility] Comment on above: Postponed from 04/03/2022 (Declined at t his time) Start: 2023 COVID-19 VACCINE (#1) COVID-19 VACCINE (#1) [facility] Comment on above: Postponed from 1968 (Declined at t his time) Start: 05-27-2022 End: 07-27-2022 25-hydroxyvitamin D3 [Mass/volume] in Serum or Plasma VITAMIN D 25 HYDROXY Lab Routine Osteoporosis, unspecified osteoporosis type, unspecified pathological fracture presence Expected: 05/27/2022, Expires: 07/27/2022 [facility] Work Phone: Comment on above: Expected: 05/27/2022, Expires: 2 Start: 05-27-2022 End: 07-27-2022 CALCIUM 24 HR URINE CALCIUM 24 HR URINE Lab Routine Osteoporosis, unspecified osteoporosis type, unspecified pathological fracture presence Expected: 05/27/2022, Expires: 07/27/2022 [facility] Work Phone: Comment on above: Expected: 05/27/2022, Expires: 2 Start: 05-27-2022 End: 07-27-2022 Calcium.ionized [Moles/volume] in Blood CALCIUM IONIZED BLOOD Lab Routine Osteoporosis, unspecified osteoporosis type, unspecified pathological fracture presence Expected: 05/27/2022, Expires: 07/27/2022 [facility] Work Phone: Comment on above: Expected: 05/27/2022, Expires: 2 Start: 05-27-2022 End: 07-27-2022 Comprehensive metabolic 2000 panel - Serum or Plasma COMP METABOLIC PANEL Lab Routine Osteoporosis, unspecified osteoporosis type, unspecified pathological fracture presence Expected: 05/27/2022, Expires: 07/27/2022 [facility] Work Phone: Comment on above: Expected: 05/27/2022, Expires: 2 Start: 05-27-2022 End: 07-27-2022 CREATININE 24 HR UR CREATININE 24 HR UR Lab Routine Osteoporosis, unspecified osteoporosis type, unspecified pathological fracture presence Expected: 05/27/2022, Expires: 07/27/2022 [facility] Work Phone: Comment on above: Expected: 05/27/2022, Expires: 2 Start: 05-27-2022 End: 07-27-2022 Parathyrin.intact [Mass/volume] in Serum or Plasma PTH INTACT BLD Lab Routine Osteoporosis, unspecified osteoporosis type, unspecified pathological fracture presence Expected: 05/27/2022, Expires: 07/27/2022 [facility] Work Phone: Comment on above: Expected: 05/27/2022, Expires: 2 Start: 05-27-2022 End: 07-27-2022 Phosphate [Mass/volume] in Serum or Plasma PHOSPHORUS INORGANIC Lab Routine Osteoporosis, unspecified osteoporosis type, unspecified pathological fracture presence Expected: 05/27/2022, Expires: 07/27/2022 [facility] Work Phone: Comment on above: Expected: 05/27/2022, Expires: 2 Start: 05-27-2022 End: 07-27-2022 PROTEIN ELECTROPHORESIS SERUM W/INTERP PROTEIN ELECTROPHORESIS SERUM W/INTERP Lab Routine Osteoporosis, unspecified osteoporosis type, unspecified pathological fracture presence Expected: 05/27/2022, Expires: 07/27/2022 [facility] Work Phone: Comment on above: Expected: 05/27/2022, Expires: 2 Start: 05-27-2022 End: 07-27-2022 Thyrotropin [Units/volume] in Serum or Plasma TSH BLD Lab Routine Osteoporosis, unspecified osteoporosis type, unspecified pathological fracture presence Expected: 05/27/2022, Expires: 07/27/2022 [facility] Work Phone: Comment on above: Expected: 05/27/2022, Expires: 2 Start: 05-27-2022 End: 07-27-2022 Thyroxine (T4) free [Mass/volume] in Serum or Plasma T4 FREE/FREE THYROX Lab Routine Osteoporosis, unspecified osteoporosis type, unspecified pathological fracture presence Expected: 05/27/2022, Expires: 07/27/2022 [facility] Work Phone: Comment on above: Expected: 05/27/2022, Expires: 2 Start: 04-03-2022 Influenza vaccination [facility] Start: 02-12-2022 End: 04-14-2022 Hepatitis C virus Ab [Presence] in Serum HEP C AB IA W/CONF SCRN Lab Routine Special screening examination for viral disease Expected: 02/12/2022, Expires: 04/14/2022 [facility] Work Phone: Comment on above: Expected: 02/12/2022, Expires: 2 Start: 02-12-2022 End: 04-14-2022 HIV 1+2 Ab [Presence] in Serum or Plasma by Immunoassay HIV 1 2 COMBO(AG/AB),WITH REFLEX TO DIFFERENTIATION Lab Routine Screening for HIV (human immunodeficiency virus) Expected: 02/12/2022, Expires: 04/14/2022 [facility] Work Phone: Comment on above: Expected: 02/12/2022, Expires: 2 Start: 01-30-2022 Influenza vaccination INFLUENZA (#1) [facility] Comment on above: Postponed from 04/03/2021 (Declined at t his time) Start: 12-23-2021 End: 02-22-2022 Helicobacter pylori Ag [Presence] in Stool by Immunoassay H PYLORI AG BY EIA,STOOL Microbiology Routine H. pylori infection Expected: 12/23/2021, Expires: 02/22/2022 [facility] Work Phone: Comment on above: Expected: 12/23/2021, Expires: 2 Start: 11-25-2021 End: 01-25-2022 ALGN ALMOND IGE ALGN ALMOND IGE Lab Routine Hoarseness Cough Gastroesophageal reflux disease with esophagitis without hemorrhage H. pylori infection Expected: 11/25/2021, Expires: 01/25/2022 [facility] Work Phone: Comment on above: Expected: 11/25/2021, Expires: 2 Start: 11-25-2021 End: 01-25-2022 ALGN WHEAT IGE ALGN WHEAT IGE Lab Routine Hoarseness Cough Gastroesophageal reflux disease with esophagitis without hemorrhage H. pylori infection Expected: 11/25/2021, Expires: 01/25/2022 [facility] Work Phone: Comment on above: Expected: 11/25/2021, Expires: 2 Start: 11-25-2021 End: 01-25-2022 ALLERGEN, COW MILK COMPONENTS IGE ALLERGEN, COW MILK COMPONENTS IGE Lab Routine Hoarseness Cough Gastroesophageal reflux disease with esophagitis without hemorrhage H. pylori infection Expected: 11/25/2021, Expires: 01/25/2022 [facility] Work Phone: Comment on above: Expected: 11/25/2021, Expires: 2 Start: 11-25-2021 End: 01-25-2022 Casein IgG Ab [Mass/volume] in Serum ALGN CASEIN IGG Lab Routine Hoarseness Cough Gastroesophageal reflux disease with esophagitis without hemorrhage H. pylori infection Expected: 11/25/2021, Expires: 01/25/2022 [facility] Work Phone: Comment on above: Expected: 11/25/2021, Expires: 2 Start: 11-25-2021 End: 01-25-2022 CELIAC SCREEN WITH REFLEX CELIAC SCREEN WITH REFLEX Lab Routine Hoarseness Cough Gastroesophageal reflux disease with esophagitis without hemorrhage H. pylori infection Expected: 11/25/2021, Expires: 01/25/2022 [facility] Work Phone: Comment on above: Expected: 11/25/2021, Expires: 2 Start: 11-25-2021 End: 01-25-2022 Melvin IgE Ab [Units/volume] in Serum ALGN WALNUT IGE Lab Routine Hoarseness Cough Gastroesophageal reflux disease with esophagitis without hemorrhage H. pylori infection Expected: 11/25/2021, Expires: 01/25/2022 [facility] Work Phone: Comment on above: Expected: 11/25/2021, Expires: Start: 10-24-2021 End: 10-24-2021 Patient encounter procedure Appointment [facility] Work Phone: Start: 03-19-2021 Screening for malignant neoplasm of cervix Cervical Cancer Screening [facility] Start: 04-03-2020 Influenza vaccination Flu vaccine (#1) [place], [place] Start: 06-24-2019 End: 06-24-2019 Office Visit 06/24/2019 Office Visit Orthopedic Surgery Ryland Kelly MD [address] [place] [phone] [facility] [place] Start: 04-03-2019 Influenza vaccination Flu vaccine (#1) [place], [place] Start: 01-27-2018 Colon cancer screen colonoscopy Colon cancer screen colonoscopy [place], [place] Start: 01-27-2018 Pneumococcal Vaccine: 50+ (1 of 1 - PCV) Pneumococcal Vaccine: 50+ (1 of 1 - PCV) [facility] Start: 01-27-2018 Screening for malignant neoplasm of colon Colon cancer screen colonoscopy [place], [place] Start: 01-27-2018 Shingles Vaccine (1 of 2) Shingles Vaccine (1 of 2) [place] Start: 05-21-2014 DTaP/Tdap/Td vaccine (2 - Tdap) DTaP/Tdap/Td vaccine (2 - Tdap) [place] Start: 05-21-2014 DTaP/Tdap/Td Vaccines (2 - Tdap) DTaP/Tdap/Td Vaccines (2 - Tdap) [facility] Start: 05-21-2014 Urine microalbumin profile [facility] Start: 01-27-2013 COLOGUARD (FIT-DNA) COLOGUARD (FIT-DNA) [facility] Start: 01-27-[address] COLONOGRAPHY [facility] Start: 01-27-2013 FECAL OCCULT BLOOD FECAL OCCULT BLOOD [facility] Start: 01-27-2013 Screening for malignant neoplasm of colon [facility] Start: 01-27-2013 SIGMOIDOSCOPY SIGMOIDOSCOPY [facility] Start: 07-07-2008 HEPATITIS B (2 of 3 - 3-dose series) [facility] Start: 07-07-2008 Hepatitis B Vaccine (2 of 3 - 19+ 3-dose series) Hepatitis B Vaccine (2 of 3 - 19+ 3-dose series) [facility] Start: 2008 Lipid panel Lipid screen [place], [place] Start: 2008 Lipid screen Lipid screen [place], [place] Start: 2008 Screening for malignant neoplasm of breast Mammogram [facility] Start: 01-27-1998 Screening for malignant neoplasm of cervix [facility] Start: 01-27-1989 Cervical cancer screen Cervical cancer screen [place] Start: 01-27-1989 Screening for malignant neoplasm of cervix [facility] Start: 01-27-1987 Hepatitis A Vaccines (1 of 2 - Risk 2-dose series) Hepatitis A Vaccines (1 of 2 - Risk 2-dose series) [facility] Start: 01-27-1987 Hepatitis B Vaccines (1 of 3 - 19+ 3-dose series) Hepatitis B Vaccines (1 of 3 - 19+ 3-dose series) [facility] Start: 01-27-1986 HEPATITIS C SCREENING HEPATITIS C SCREENING [facility] Start: 01-27-1986 Hepatitis C screening Hepatitis C Screening [facility] Start: 01-27-1986 HIV SCREENING HIV SCREENING [facility] Start: 01-27-1983 HIV screen HIV screen [place], [place] Start: 01-27-1983 HIV screening HIV screen [place], [place] Start: 1980 Depression Screening Depression Screening [facility] Start: 01-27-1974 PNEUMOCOCCAL (1 - PCV) PNEUMOCOCCAL (1 - PCV) [facility] Start: 01-27-1974 Pneumococcal Vaccine: Pediatrics (0 to 5 Years) and At-Risk Patients (6 to 64 Years) (1 of 2 - PCV) Pneumococcal Vaccine: Pediatrics (0 to 5 Years) and At-Risk Patients (6 to 64 Years) (1 of 2 - PCV) [facility] Start: 01-27-1973 COVID-19 VACCINE (#1) COVID-19 VACCINE (#1) [facility] Start: 01-27-1973 COVID-19 VACCINE (1) COVID-19 VACCINE (1) [facility] Start: 01-27-1969 MMR Vaccines (1 of 1 - Standard series) MMR Vaccines (1 of 1 - Standard series) [facility] Start: 1968 COVID-19 VACCINE (#1) COVID-19 VACCINE (#1) [facility] Start: 1968 HIV screening HIV Screening [facility] Start: 1968 Screening for malignant neoplasm of colon [facility] End: 12-11-2023 ADULT [place] ANORECTAL MANOMETRY [facility] ANORECTAL MANOMETRY Endoscopy Routine Chronic constipation 1 Occurrences starting 12/10/2022 until 12/11/2023 [facility] Work Phone: Comment on above: 1 Occurrences starting 12/10/2022 until 12/11/2023 End: 05-19-2025 BD DXA TRABECULAR BONE SCORE (TBS) BD DXA TRABECULAR BONE SCORE (TBS) Radiology Routine Age-related osteoporosis without current pathological fracture 1 Occurrences starting 04/19/2024 until 05/19/2025 [facility] Comment on above: 1 Occurrences starting 04/19/2024 until 05/19/2025 BD DXA TRABECULAR HECTOR NE SCORE (TBS) BD DXA TRABECULAR BONE SCORE (TBS) Radiology Routine Age-related osteoporosis without current pathological fracture 05/30/2024 8:09 AM EDT [facility] COVID & INFLUENZA A/ B & RSV PCR, ROUTINE COVID & INFLUENZA A/B & RSV PCR, ROUTINE Microbiology Routine Flu-like symptoms 09/12/2024 11:48 AM EST [facility] Work Phone: CT Chest WO contrast CT CHEST WO IVCON Radiology Routine Chronic cough Persistent dry cough 12/24/2023 8:17 AM EDT [facility] Work Phone: End: 04-19-2026 CT Heart and Coronary arteries for calcium scoring WO contrast CT CALCIUM SCORING SELF PAY Radiology Routine Encounter for screening for cardiovascular disorders Family history of early CAD Hyperlipidemia, mixed 1 Occurrences starting 03/20/2025 until 04/19/2026 [facility] Work Phone: Comment on above: 1 Occurrences starting 03/20/2025 until 04/19/2026 End: 05-19-2025 DXA Skeletal system.axial Views for bone density DXA-AXIAL SKELETON Radiology Routine Age-related osteoporosis without current pathological fracture 1 Occurrences starting 04/19/2024 until 05/19/2025 [facility] Work Phone: Comment on above: 1 Occurrences starting 04/19/2024 until 05/19/2025 DXA Skeletal system.axial Views for bone density DXA-AXIAL SKELETON Radiology Routine Age-related osteoporosis without current pathological fracture 05/30/2024 8:09 AM EDT [facility] Work Phone: End: 07-07-2024 Echocardiography ECHO Cardiology Routine Abnormal ECG LAE (left atrial enlargement) 1 Occurrences starting 07/07/2023 until 07/07/2024 [facility] Work Phone: Comment on above: 1 Occurrences starting 07/07/2023 until 07/07/2024 EGD DIAGNOSTIC EGD DIAGNOSTIC Endoscopy Routine Hoarseness Dysphagia, unspecified type Ordered: 11/01/2021 [facility] Work Phone: Comment on above: Ordered: 11/01/2021 End: 01-31-2025 EGD DIAGNOSTIC EGD DIAGNOSTIC Endoscopy Routine Gastroesophageal reflux disease, unspecified whether esophagitis present NCGS (non-celiac gluten sensitivity) 1 Occurrences starting 02/01/2024 until 01/31/2025 [facility] Work Phone: Comment on above: 1 Occurrences starting 02/01/2024 until 01/31/2025 End: 08-01-2025 Fructose challenge (hydrogen breath test) panel - Exhaled gas BREATH TEST FRUCTOSE Endoscopy Routine Irritable bowel syndrome with constipation NCGS (non-celiac gluten sensitivity) Bloating 1 Occurrences starting 08/01/2024 until 08/01/2025 [facility] Work Phone: Comment on above: 1 Occurrences starting 08/01/2024 until 08/01/2025 End: 11-28-2023 Gastric emptying imaging study NM GASTRIC EMPTYING SOLID Radiology Routine LUQ pain Bloating Early satiety 1 Occurrences starting 10/29/2022 until 11/28/2023 [facility] Work Phone: Comment on above: 1 Occurrences starting 10/29/2022 until 11/28/2023 Helicobacter pylori Ag [Presence] in Stool by Immunoassay H PYLORI AG BY EIA,STOOL Microbiology Routine LUQ pain Bloating Early satiety Ordered: 10/29/2022 [facility] Work Phone: Comment on above: Ordered: 10/29/2022 End: 10-16-2023 IMAGING GUIDED ASP/INJ HIP JT/BURSA RIGHT IMAGING GUIDED ASP/INJ HIP JT/BURSA RIGHT Radiology Routine Sacroiliitis (HCC) 1 Occurrences starting 09/16/2022 until 10/16/2023 [facility] Work Phone: Comment on above: 1 Occurrences starting 09/16/2022 until 10/16/2023 End: 02-24-2025 MR Brain WO and W contrast IV MRI BRAIN WO/W IVCON Radiology Routine Hemifacial spasm of left side of face 1 Occurrences starting 01/26/2024 until 02/24/2025 [facility] Work Phone: Comment on above: 1 Occurrences starting 01/26/2024 until 02/24/2025 End: 02-24-2025 MRA Head vessels WO contrast MRA BRAIN WO IVCON Radiology Routine Hemifacial spasm of left side of face 1 Occurrences starting 01/26/2024 until 02/24/2025 [facility] Comment on above: 1 Occurrences starting 01/26/2024 until 02/24/2025 End: 06-04-2023 Mri breast without&with contrast w/cad bilateral MRI BREAST WO/W IVCON BILAT Radiology Routine Encounter for breast cancer screening using non-mammogram modality History of breast cancer 1 Occurrences starting 05/05/2022 until 06/04/2023 [facility] Work Phone: Comment on above: 1 Occurrences starting 05/05/2022 until 06/04/2023 End: 05-25-2023 MRI BREAST WO IVCON BILAT MRI BREAST WO IVCON BILAT Radiology Routine Encounter for breast cancer screening using non-mammogram modality 1 Occurrences starting 04/25/2022 until 05/25/2023 [facility] Work Phone: Comment on above: 1 Occurrences starting 04/25/2022 until 05/25/2023 End: 12-17-2023 Mri spinal canal lumbar w/o contrast material MRI LUMBAR SPINE WO IVCON Radiology Routine Spinal stenosis of lumbar region, unspecified whether neurogenic claudication present 1 Occurrences starting 11/17/2022 until 12/17/2023 [facility] Work Phone: Comment on above: 1 Occurrences starting 11/17/2022 until 12/17/2023 End: 11-30-2023 Mri spinal canal thoracic w/o contrast matrl MRI THORACIC SPINE WO IVCON Radiology Routine Chronic right-sided thoracic back pain Spasm of thoracic back muscle Osteoarthritis of spine with radiculopathy, thoracic region DDD (degenerative disc disease), thoracic Paresthesia of skin 1 Occurrences starting 10/31/2022 until 11/30/2023 [facility] Work Phone: Comment on above: 1 Occurrences starting 10/31/2022 until 11/30/2023 End: 06-26-2023 Radex spine lumbosacral 2/3 views XR LUMBAR GENERAL 3V AP/LAT/L5-S1 Radiology Routine Osteoporosis, unspecified osteoporosis type, unspecified pathological fracture presence 1 Occurrences starting 05/27/2022 until 06/26/2023 [facility] Work Phone: Comment on above: 1 Occurrences starting 05/27/2022 until 06/26/2023 End: 07-02-2023 Radex spine lumbosacral 2/3 views XR LUMBAR GENERAL 3V AP/LAT/L5-S1 Radiology Routine Osteoporosis, unspecified osteoporosis type, unspecified pathological fracture presence 1 Occurrences starting 06/02/2022 until 07/02/2023 [facility] Work Phone: Comment on above: 1 Occurrences starting 06/02/2022 until 07/02/2023 End: 06-26-2023 Radex spine thoracic 2 views XR THORACIC LIMITED 2V AP/LAT Radiology Routine Osteoporosis, unspecified osteoporosis type, unspecified pathological fracture presence 1 Occurrences starting 05/27/2022 until 06/26/2023 [facility] Work Phone: Comment on above: 1 Occurrences starting 05/27/2022 until 06/26/2023 End: 07-02-2023 Radex spine thoracic 2 views XR THORACIC LIMITED 2V AP/LAT Radiology Routine Osteoporosis, unspecified osteoporosis type, unspecified pathological fracture presence 1 Occurrences starting 06/02/2022 until 07/02/2023 [facility] Work Phone: Comment on above: 1 Occurrences starting 06/02/2022 until 07/02/2023 RAPID STREP TEST B/O RAPID STREP TEST B/O Lab Routine Sore throat Congestion of upper airway Wheezing Acute ear pain, bilateral Non-recurrent acute serous otitis media of both ears Ordered: 11/19/2022 [facility] Work Phone: Comment on above: Ordered: 11/19/2022 End: 12-31-2023 Screening colonoscopy COLONOSCOPY SCREENING Endoscopy Routine Screening for colon cancer 1 Occurrences starting 12/30/2022 until 12/31/2023 [facility] Work Phone: Comment on above: 1 Occurrences starting 12/30/2022 until 12/31/2023 SURGICAL PATHOLOGY [facility] Work Phone: Comment on above: Release Upon Ordering for 1 Occurrences starting 11/05/2021, 1 completed SURGICAL PATHOLOGY [facility] Work Phone: Comment on above: Release Upon Ordering for 1 Occurrences starting 04/29/2024, 1 completed End: 02-05-2025 US Abdomen RUQ US ABD RIGHT UPPER QUADRANT Radiology Routine Liver cyst 1 Occurrences starting 01/07/2024 until 02/05/2025 [facility] Work Phone: Comment on above: 1 Occurrences starting 01/07/2024 until 02/05/2025 US Abdomen RUQ US ABD RIGHT UPP ER QUADRANT Radiology Routine Liver cyst 01/18/2024 11:21 AM EDT [facility] Work Phone: End: 12-07-2023 US HIP RIGHT US HIP RIGHT Radiology Routine Trochanteric bursitis of right hip 1 Occurrences starting 11/07/2022 until 12/07/2023 [facility] Work Phone: Comment on above: 1 Occurrences starting 11/07/2022 until 12/07/2023 End: 04-30-2024 XR ABDOMEN 1V SUPINE XR ABDOMEN 1V SUPINE Radiology Routine Chronic constipation 1 Occurrences starting 04/01/2023 until 04/30/2024 [facility] Work Phone: Comment on above: 1 Occurrences starting 04/01/2023 until 04/30/2024 End: 08-31-2025 XR Abdomen Supine and Upright XR ABDOMEN 2V ROUTINE SUPINE W UPRIGHT/DECUB/CTL Radiology Routine Irritable bowel syndrome with constipation 1 Occurrences starting 08/01/2024 until 08/31/2025 [facility] Comment on above: 1 Occurrences starting 08/01/2024 until 08/31/2025 XR Abdomen Supine an d Upright XR ABDOMEN 2V ROUTINE SUPINE W UPRIGHT/DECUB/CTL Radiology Routine Irritable bowel syndrome with constipation 08/05/2024 2:27 PM EST [facility] Work Phone: End: 12-30-2024 XR Chest PA and Lateral XR CHEST 2V FRONTAL/LAT Radiology Routine Persistent dry cough 1 Occurrences starting 12/01/2023 until 12/30/2024 [facility] Work Phone: Comment on above: 1 Occurrences starting 12/01/2023 until 12/30/2024 XR Chest PA and Lateral XR CHEST 2V FRONTAL/LAT Radiology Routine Persistent dry cough 12/01/2023 4:46 PM EDT [facility] XR Foot - left 3 Views XR foot 3 + views left Imaging Routine Left foot pain 01/20/2024 8:43 AM EDT [facility] Work Phone: End: 05-11-2020 XR FOOT RIGHT (MIN 3 VIEWS) XR FOOT RIGHT (MIN 3 VIEWS) Imaging Routine Delayed union of fracture of foot, right 1 Occurrences starting 05/11/2020 until 05/11/2020 [facility] Comment on above: 1 Occurrences starting 05/11/2020 until 05/11/2020 XR FOOT RIGHT (MIN 3 VIEWS) XR FOOT RIGHT (MIN 3 VIEWS) Imaging Routine Delayed union of fracture of foot, right 05/11/2020 3:34 PM EDT [facility] [facility] End: 01-08-2023 XR HIP GENERAL 3V PELV/AP/LAT RIGHT XR HIP GENERAL 3V PELV/AP/LAT RIGHT Radiology Routine Tear of right acetabular labrum, subsequent encounter 1 Occurrences starting 12/09/2021 until 01/08/2023 [facility] Work Phone: Comment on above: 1 Occurrences starting 12/09/2021 until 01/08/2023 End: 11-30-2023 XR KNEE GENERAL 4V AP BOTH/PA BOTH/LAT/MERC LEFT XR KNEE GENERAL 4V AP BOTH/PA BOTH/LAT/MERC LEFT Radiology Routine Chronic pain of left knee Recurrent left knee instability Lateral meniscus derangement, left 1 Occurrences starting 10/31/2022 until 11/30/2023 [facility] Work Phone: Comment on above: 1 Occurrences starting 10/31/2022 until 11/30/2023 XR KNEE GENERAL 4V A P BOTH/PA BOTH/LAT/MERC LEFT XR KNEE GENERAL 4V AP BOTH/PA BOTH/LAT/MERC LEFT Radiology Routine Chronic pain of left knee Recurrent left knee instability Lateral meniscus derangement, left 10/31/2022 10:49 AM EDT [facility] Work Phone: [facility] Immunizations Immunization Date Immunization Notes Care Provider Mee hood 06-18-2021 zoster vaccine recombinant Salasrenetta Sherman PT Work Phone: [facility] Work Phone: 03-12-2021 zoster vaccine recombinant Salas Sherman PT Work Phone: [facility] Work Phone: 07-11-2019 influenza, injectabl e, quadrivalent, preservative free Salasrenetta Sherman PT Work Phone: [facility] 07-11-2019 influenza virus vaccine, unspecified formulation Salasrenetta Sherman PT [facility] 06-09-2008 hepatitis B vaccine, pediatric or pediatric/adolescent dosage Salas Sherman PT Work Phone: [facility] 06-09-2008 hepatitis B vaccine, unspecified formulation Salas Sherman PT [facility] 09-10-2007 hepatitis B vaccine, pediatric or pediatric/adolescent dosage Salas Sherman PT Work Phone: [facility] 08-04-2007 hepatitis B vaccine, adult dosage Salasrenetta Sherman PT Work Phone: [facility] Work Phone: 03-04-2006 tuberculin skin test ; purified protein derivative solution, intradermal Ceci Luna PA-C Work Phone: [facility] 05-21-2004 diphtheria and tetan us toxoids, adsorbed for pediatric use Salasrenetta Sherman PT Work Phone: [facility] Work Phone: Payers Date Payer Category Payer Self-pay 2020 Private Health Insurance [id number] 2020 Unknown MMO MMO [employer] [id number] 2020-Present [phone] [address] [place] [address] PPO [id number] 2020 Unknown [id number] 2020 Unknown [id number] 2019 Unknown [employer] [facility] xxxxxxxxxxxx 2019-Present [phone] [address] [place] [address] xxxxxxxxxxxx [id number] 1968 Unknown [id number] 1968 Unknown [id number] 1968 Unknown [id number] 1968 Unknown [id number] Unknown [id number] Unknown [id number] Social History Date Type Detail Facility Start: 05-11-2020 End: 05-27-2022 Tobacco smoking status NHIS Never smoker [facility] Start: 05-11-2020 End: 05-27-2022 Tobacco use and exposure Never used [employer] TERE Michelle Start: 05-11-2020 End: 01-20-2024 Alcohol intake Ex-drinker (finding) [facility]ast[facility] D'ElyseeJanell HANSON Y Start: 04-15-2019 End: 10-27-2022 History SDOH Alcohol Frequency 1 Mitzi D'ElyseeTERE HANSON Start: 1970 Sex Assigned At Not on file [employer] TERE ESTEVES Start: 05-13-2019 End: 03-13-2025 Alcohol intake Not Currently [facility] Start: 10-24-2021 End: 10-24-2021 Assertion Unknown if ever smoked [facility] [employer] [facility] Work Phone: Start: 10-16-2021 End: 03-20-2025 Alcohol intake Current non-drinker of alcohol (finding) [facility] Start: 01-18-2020 End: 10-27-2022 History SDOH Physical Activity DPW 3 [facility] Start: 01-18-2020 End: 10-27-2022 History SDOH Physical Activity MPS 6 [facility] Start: 04-27-2021 End: 05-27-2022 Exposure to SARS-CoV-2 (event) Not sure [facility] Work Phone: Start: 03-07-2022 End: 03-17-2022 Exposure to SARS-CoV-2 (event) Unable to assess [facility] Start: 10-27-2022 History SDOH Social Connections Phone 98 [facility] Start: 10-27-2022 History SDOH Physical Activity DPW 4 [facility] Sex Assigned At [facility] Start: 10-26-2022 End: 03-13-2025 History of Social function [facility] Start: 07-04-2012 In a typical week, how many times do you talk on the telephone with family, friends, or neighbors? Patient refused [facility] Are you now , , , , never or living with a partner? [facility] Do you feel stress - tense, restless, nervous, or anxious, or unable to sleep at night because your mind is troubled all the time - these days [OSQ] Not at all [facility] (I/We) worried wheth er (my/our) food would run out before (I/we) got money to buy more. DK or Refused [facility] In the past 12 month s, was there a time when you were not able to pay the mortgage or rent on time? No [facility] Start: 1970 Sex assigned at Female [facility] Start: 01-19-2024 Gender identity Identifies as female gender (finding) [facility] Start: 01-19-2024 Sexual orientation Heterosexual (finding) [facility] Do you belong to any clubs or organizations such as orthodox groups, unions, fraternal or athletic groups, or school groups? Yes [facility] How often to you hav e a drink containing alcohol? Never [facility] (I/We) worried wheth er (my/our) food would run out before (I/we) got money to buy more. Never true [facility] Start: 11-14-2013 Sex Female (finding) [facility] Medical Equipment Procedure Code Equipment Code Equipment Origin al Text Equipment Identifier Dates Graft Skn 9.6x19.3cm Aldrm k - [id number] Start: 08-18-2017 Graft Skn 9.6x19.3cm Aldrm k - [id number] Start: 08-18-2017 Fod-Ac-K-Kind Implant - [id number] Start: 08-18-2017 Comment on above: Description: [facility] D [facility] Wos-Qu-X-Kind Implant - [id number] Start: 08-18-2017 Alloderm Select Tissue Matrix [id number] Start: 08-18-2017 Alloderm Select Tissue Matrix [id number] Start: 08-18-2017 Fibertak Hip Marilia f Bunching Kl Matlock 1.8mm [id number] Start: 01-09-2022 Fibertak Hip Marilia f Bunching Kl Matlock 1.8mm [id number] Start: 01-09-2022 Fibertak Hip Marilia f Bunching Kl Matlock 1.8mm [id number] Start: 01-09-2022 Unknown Unknown 07/23/18 Unknown Unknown FDA Start: 07-23-2018 Unknown Unknown 11/12/18 Unknown Unknown FDA Start: 11-12-2018 Unknown Unknown 07/23/18 Unknown Unknown FDA Start: 07-23-2018 Unknown Unknown 11/12/18 Unknown Unknown FDA Start: 11-12-2018 Unknown Unknown 07/23/18 Unknown Unknown FDA Start: 07-23-2018 Unknown Unknown 11/12/18 Unknown Unknown FDA Start: 11-12-2018 Functional Status Date Assessment Result Facility 08-19-2017 Are you deaf, or do you have serious difficulty hearing No 08/19/2017 10:03 AM Tristin Ahumada, SHELL No [facility] 08-19-2017 Are you blind, or do you have serious difficulty seeing, even when wearing glasses No 08/19/2017 10:03 AM Tristin Ahumada RN No [facility] 08-19-2017 Do you have serious difficulty walking or climbing stairs No 08/19/2017 10:03 AM Tristin Ahumada RN No [facility] 08-19-2017 Do you have difficul ty dressing or bathing No 08/19/2017 10:03 AM Tristin Ahumada, SHELL No [facility] 08-19-2017 Because of a physica l, mental, or emotional condition, do you have difficulty doing errands alone such as visiting a physician's office or shopping No 08/19/2017 10:03 AM Tristin Ahumada RN No [facility] Mental Status Date Assessment Result Facility 08-19-2017 Because of a physica l, mental, or emotional condition, do you have serious difficulty concentrating, remembering, or making decisions No 08/19/2017 10:03 AM Tristin Ahumada RN No [facility] Clinical Notes 08-27-2007 to 04-11-2025 Ceci Luna PA-C - 04/11/2025 11:33 AM EDTPatient Gallo Bajwa DO - 03/20/2025 8:03 AM EDTTelephone Encounter - Grabiel-Smitha Benton LPN - 03/06/2025 5:23 PM EDT Note Date & Type Note Facility 04-11-2025 Note HNO ID: [id number] Author: CECI LUNA PA-C Service: ? Author Type: Physician Personnel Associate Type: Progress Notes Filed: 04/11/2025 11:52 Note Text: CHIEF COMPLAINT: Patient presents with: Recheck: IBS with constipation- doing well on Motegrity HPI Greyson Rojas is a 55 year old female here today for Recheck (IBS with constipation- doing well on Motegrity ) Patient tells me that she is doing very well on Motegrity 2 mg daily. Notes that her bowel movements have been normal, going 2-3x per day but formed and feels like she is emptying. Notes that her bloating and sluggishness after eating has improved. No rectal bleeding. Last OV with me 01/30/2025: Assessment/Plan (K58.1) Irritable bowel syndrome with constipation (primary encounter diagnosis) 1. Irritable bowel syndrome with constipation (Primary) -- Patient with ongoing IBS-C, bowels are alternating. Doesn't feel like the IBSRELA is working anymore. -- Patient has failed Linzess. Will try Motegrity 2 mg daily. Script sent to pharmacy. She will reach out with an update. - prucalopride 2 mg tablet (MOTEGRITY); Take 1 tablet by mouth once daily. Dispense: 30 tablet; Refill: 1 Follow up in office 3 months/PRN. Current Outpatient Medications Medication Sig famotidine (PEPCID) 20 mg tablet TAKE 1 TABLET TWICE A DAY NEEDED estradiol (ESTRACE) 0.01 % (0.1 mg/gram) vaginal cream INSERT 1 GRAM VAGINALLY 3 TIMES A WEEK BEFORE BED omeprazole (PRILOSEC) 20 mg capsule TAKE 1 CAPSULE ONCE DAILY rosuvastatin (CRESTOR) 5 mg tablet Take 1 tablet by mouth daily at bedtime. venlafaxine ER (EFFEXOR XR) 37.5 mg 24 hr capsule TAKE 1 CAPSULE ONCE DAILY KRILL OIL ORAL Take 800 mg by mouth once daily. GEMTESA 75 mg tablet Take 75 mg by mouth once daily. COMPRESSION SLEEVE as directed. Breast cancer. 20-30 mmHg mecobalamin (B12 ACTIVE ORAL) Take 1 tablet by mouth once daily. CALCIUM CARBONATE/VITAMIN D3 (VITAMIN D-3 ORAL) Take by mouth twice daily. prucalopride 2 mg tablet (MOTEGRITY) Take 1 tablet by mouth once daily. No current facility-administered medications for this visit. ALLERGIES Allergen Reactions Penicillins Hives Other reaction(s): hives all over body Nickel Rash SOCIAL HISTORY[1] PAST MEDICAL HISTORY Diagnosis Date Anemia, unspecified iron deficiency Breast cancer (HCC) 08/2017 Breast mass 06/2017 right breast Diffuse cystic mastopathy Helicobacter pylori infection Hiatal hernia History of prolapse of bladder Major depressive disorder, single episode, unspecified 1999 depressed year after 3rd child: treated for 1 year with Zoloft Meniere disease Dr. Marie ENT Panic disorder without agoraphobia periodic symptoms Use of tamoxifen (Nolvadex) 03/27/2023 PAST SURGICAL HISTORY Procedure Laterality Date BREAST RECONSTRUCTION implants removed and replaced BX BREAST W/DEVICE 1ST LESION ULTRASOUND GUID Right 06/12/2017 3 nodules; 5cm, 3cm, 3cm COLONOSCOPY 03/16/2023 COLONOSCOPY FLX DX W/COLLJ SPEC WHEN PFRMD 03/01/2018 Colonoscopy CYSTOCELE REPAIR 01/07/2024 CYSTOCELE REPAIR 01/07/2024 EGD N/A 11/05/2021 EGD W/O [facility] SPEC VARICIES INJ 04/29/2024 Normal FOOT SURGERY HX Left 1981 Arch reshaping HIP SURGERY HX 01/08/2022 torn labrum, reshaped femoral head LAPAROSCOPIC SALPING/OOPHORECTOMY Right 02/24/2019 Dr. Jasmin Sosa MASTECTOMY, SIMPLE, COMPLETE Bilateral 08/18/2017 Dr. Johnson (reconstruction), Dr. 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 Sosa-[facility] TOTAL ABD HYSTERECTOMY+BLAD REPR N/A 2020 left ovary removed; Dr. Sosa-[facility]- total hysterectomy with rectocele and bladder sling TOTAL KNEE REPLACEMENT Left 07/24/2023 FAMILY HISTORY Problem Relation Age of Onset Cancer Mother melanoma Hypertension Mother Lipids Mother Breast Cancer Mother 63 lumpectomy, radiation, anastrozole x 5 years Diabetes Mother Skin Cancer Mother basel cell Renal Disease Mother other (chf) Mother Arthritis Father Lipids Father High Triglycerides Heart Father ICD/pacer, CHF/s/p VT (cause of ) Diabetes Father other (renal failure) Father Osteoporosis Sister Diabetes Sister Lipids Sister Osteoporosis Sister other (hydrocephalus) Sister other (spina bifida) Sister Hypertension Brother Osteoporosis Maternal Grandmother Colon Cancer Paternal Grandmother Cancer Paternal Grandfather HCC-EtOH abuse No Known Problems Daughter other (POTS) Daughter 28 other (PCOS) Daughter 25 Heart Maternal Uncle enlarged heart: cardiomyopathy other (ETOH) Paternal Uncle liver, cause of Breast Cancer Maternal cousin 49 Ovarian cancer No Family History REVIEW OF SYSTEMS Review of Systems All other systems reviewed and are negative. (more content not included)... [facility] 04-11-2025 History of Presen t illness Narrative CHIEF COMPLAINT: Patient presents with: Recheck: IBS with constipation- doing well on Motegrity HPI Greyson Rjoas is a 55 year old female here today for Recheck (IBS with constipation- doing well on Motegrity ) Patient tells me that she is doing very well on Motegrity 2 mg daily. Notes that her bowel movements have been normal, going 2-3x per day but formed and feels like she is emptying. Notes that her bloating and sluggishness after eating has improved. No rectal bleeding. Last OV with me 01/30/2025: Assessment/Plan (K58.1) Irritable bowel syndrome with constipation (primary encounter diagnosis) 1. Irritable bowel syndrome with constipation (Primary) -- Patient with ongoing IBS-C, bowels are alternating. Doesn't feel like the IBSRELA is working anymore. -- Patient has failed Linzess. Will try Motegrity 2 mg daily. Script sent to pharmacy. She will reach out with an update. - prucalopride 2 mg tablet (MOTEGRITY); Take 1 tablet by mouth once daily. Dispense: 30 tablet; Refill: 1 Follow up in office 3 months/PRN. Current Outpatient Medications Medication Sig famotidine (PEPCID) 20 mg tablet TAKE 1 TABLET TWICE A DAY NEEDED estradiol (ESTRACE) 0.01 % (0.1 mg/gram) vaginal cream INSERT 1 GRAM VAGINALLY 3 TIMES A WEEK BEFORE BED omeprazole (PRILOSEC) 20 mg capsule TAKE 1 CAPSULE ONCE DAILY rosuvastatin (CRESTOR) 5 mg tablet Take 1 tablet by mouth daily at bedtime. venlafaxine ER (EFFEXOR XR) 37.5 mg 24 hr capsule TAKE 1 CAPSULE ONCE DAILY KRILL OIL ORAL Take 800 mg by mouth once daily. GEMTESA 75 mg tablet Take 75 mg by mouth once daily. COMPRESSION SLEEVE as directed. Breast cancer. 20-30 mmHg mecobalamin (B12 ACTIVE ORAL) Take 1 tablet by mouth once daily. CALCIUM CARBONATE/VITAMIN D3 (VITAMIN D-3 ORAL) Take by mouth twice daily. prucalopride 2 mg tablet (MOTEGRITY) Take 1 tablet by mouth once daily. No current facility-administered medications for this visit. ALLERGIES Allergen Reactions Penicillins Hives Other reaction(s): hives all over body Nickel Rash SOCIAL HISTORY[1] PAST MEDICAL HISTORY Diagnosis Date Anemia, unspecified iron deficiency Breast cancer (HCC) 08/2017 Breast mass 06/2017 right breast Diffuse cystic mastopathy Helicobacter pylori infection Hiatal hernia History of prolapse of bladder Major depressive disorder, single episode, unspecified 1999 depressed year after 3rd child: treated for 1 year with Zoloft Meniere disease Dr. Marie ENT Panic disorder without agoraphobia periodic symptoms Use of tamoxifen (Nolvadex) 03/27/2023 PAST SURGICAL HISTORY Procedure Laterality Date BREAST RECONSTRUCTION implants removed and replaced BX BREAST W/DEVICE 1ST LESION ULTRASOUND GUID Right 06/12/2017 3 nodules; 5cm, 3cm, 3cm COLONOSCOPY 03/16/2023 COLONOSCOPY FLX DX W/COLLJ SPEC WHEN PFRMD 03/01/2018 Colonoscopy CYSTOCELE REPAIR 01/07/2024 CYSTOCELE REPAIR 01/07/2024 EGD N/A 11/05/2021 EGD W/O [facility] SPEC VARICIES INJ 04/29/2024 Normal FOOT SURGERY HX Left 1981 Arch reshaping HIP SURGERY HX 01/08/2022 torn labrum, reshaped femoral head LAPAROSCOPIC SALPING/OOPHORECTOMY Right 02/24/2019 Dr. Jasmin Sosa MASTECTOMY, SIMPLE, COMPLETE Bilateral 08/18/2017 Dr. Johnson (reconstruction), Dr. 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 Sosa-[facility] TOTAL ABD HYSTERECTOMY+BLAD REPR N/A 2020 left ovary removed; Dr. Sosa-[facility]- total hysterectomy with rectocele and bladder sling TOTAL KNEE REPLACEMENT Left 07/24/2023 FAMILY HISTORY Problem Relation Age of Onset Cancer Mother melanoma Hypertension Mother Lipids Mother Breast Cancer Mother 63 lumpectomy, radiation, anastrozole x 5 years Diabetes Mother Skin Cancer Mother basel cell Renal Disease Mother other (chf) Mother Arthritis Father Lipids Father High Triglycerides Heart Father ICD/pacer, CHF/s/p VT (cause of ) Diabetes Father other (renal failure) Father Osteoporosis Sister Diabetes Sister Lipids Sister Osteoporosis Sister other (hydrocephalus) Sister other (spina bifida) Sister Hypertension Brother Osteoporosis Maternal Grandmother Colon Cancer Paternal Grandmother Cancer Paternal Grandfather HCC-EtOH abuse No Known Problems Daughter other (POTS) Daughter 28 other (PCOS) Daughter 25 Heart Maternal Uncle enlarged heart: cardiomyopathy other (ETOH) Paternal Uncle liver, cause of Breast Cancer Maternal cousin 49 Ovarian cancer No Family History REVIEW OF SYSTEMS Review of Systems All other systems reviewed and are negative. PHYSICAL EXAM BP 112/70 Pulse 85 Ht 5' 3 (1.60m) Wt 137 lb 1.6 oz (62.2kg) LMP 06/08/2020 BMI 24.29 kg/(m^2). Physical Exam Constitutional: Appearance: Normal appearance. She is normal weight. HENT: Head: Normocephalic and atraumatic. Eyes: General: No scleral icterus. Extraocular Movements: Extraocular movements intact. Conjunctiva/sclera: Conjunctivae normal. Pupils: Pupils are equal, round, and reactive to light. Cardiovascular: Rate and Rhythm: Normal rate and regular rhythm. Pulses: Normal pulses. Heart sounds: Normal heart sounds. Pulmonary: Effort: Pulmonary effort is normal. Breath sounds: Normal breath sounds. Abdominal: General: Abdomen is flat. Bowel sounds are normal. Palpations: Abdomen is soft. Tenderness: There is no abdominal tenderness. Musculoskeletal: General: Normal range of motion. Cervical back: Normal range of motion and neck supple. Skin: General: Skin is warm and dry. Coloration: Skin is not jaundiced. Neurological: General: No focal deficit present. Mental Status: She is alert and oriented to person, place, and time. Psychiatric: Mood and Affect: Mood normal. Behavior: Behavior normal. Thought Content: Thought content normal. Judgment: Judgment normal. Assessment/Plan (K58.1) Irritable bowel syndrome with constipation (primary encounter diagnosis) 1. Irritable bowel syndrome with constipation (Primary) -- Patient tells me that she is doing very today on Motegrity 2 mg. Notes that her symptoms have significant improved. Refilled this for her. - prucalopride 2 mg tablet (MOTEGRITY); Take 1 tablet by mouth once daily. Dispense: 90 tablet; Refill: 3 Follow up in office 3 months/PRN. Recommended to please call office/go to ER if fever, chills, chest pain, SOB, diarrhea, nausea, emesis, worsening abdominal pain, dehydration occurs I spent a total of 15 minutes on the date of the service which included preparing to see the patient, [id number] patient care, completing clinical documentation, obtaining and/or reviewing separately obtained history, performing a medically appropriate examination, counseling and educating the patient/family/caregiver, and ordering medications, tests, or procedures. Ceci Luna PA-C April 11, 2025 11:45 AM [1] Social History Tobacco Use Smoking status: Never Smokeless tobacco: Never Vaping Use Vaping status: Never Used Substance Use Topics Alcohol use: No Drug use: No documented in this encounter [facility] 03-20-2025 Instructions Gallo Sanches DO - 03/20/2025 8:26 AM EDT Sudafed or Zyrtec D at bedtime Can add on Nasonex or Nasacort spray documented in this encounter [facility] 03-20-2025 Note HNO ID: [id number] Author: GALLO SANCHES DO Service: ? Author Type: Physician Type: Progress Notes Filed: 03/20/2025 12:52 Note Text: CC: Greyson Rojas is a 55 year old female who presents to the office to establish care. HPI: Left knee pain, chronic since her left knee replacement surgery. She is likely to have upcoming popliteal surgery for entrapment syndrome by Dr[facility]. Hiatal hernia, GERD symptoms stable. Taking Pepcid medication and Prilosec Mood, post menopausal symptoms, stable with Effexor, taking as prescribed, no concerns. HPL, taking Crestor 5 mg a day, tolerating well without SE She isn't interested in pneumococcal vaccine and hepatitis b vaccine recommended. PAST MEDICAL HISTORY Diagnosis Date Anemia, unspecified iron deficiency Breast cancer (HCC) 08/2017 Breast mass 06/2017 right breast Diffuse cystic mastopathy Helicobacter pylori infection Hiatal hernia History of prolapse of bladder Major depressive disorder, single episode, unspecified 1999 depressed year after 3rd child: treated for 1 year with Zoloft Meniere disease Dr. [facility] Panic disorder without agoraphobia periodic symptoms Use of tamoxifen (Nolvadex) 03/27/2023 PAST SURGICAL HISTORY Procedure Laterality Date BREAST RECONSTRUCTION implants removed and replaced BX BREAST W/DEVICE 1ST LESION ULTRASOUND GUID Right 06/12/2017 3 nodules; 5cm, 3cm, 3cm COLONOSCOPY 03/16/2023 COLONOSCOPY FLX DX W/COLLJ SPEC WHEN PFRMD 03/01/2018 Colonoscopy CYSTOCELE REPAIR 01/07/2024 CYSTOCELE REPAIR 01/07/2024 EGD N/A 11/05/2021 EGD W/O [facility] SPEC VARICIES INJ 04/29/2024 Normal FOOT SURGERY HX Left 1981 Arch reshaping HIP SURGERY HX 01/08/2022 torn labrum, reshaped femoral head LAPAROSCOPIC SALPING/OOPHORECTOMY Right 02/24/2019 Dr. Jasmin Sosa MASTECTOMY, SIMPLE, COMPLETE Bilateral 08/18/2017 Dr. Johnson (reconstruction), Dr. 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 Sosa-[facility] TOTAL ABD HYSTERECTOMY+BLAD REPR N/A 2020 left ovary removed; Dr. Sosa-[facility]- total hysterectomy with rectocele and bladder sling TOTAL KNEE REPLACEMENT Left 07/24/2023 Social History: SOCIAL HISTORY[1] FAMILY HISTORY Problem Relation Age of Onset Cancer Mother melanoma Hypertension Mother Lipids Mother Breast Cancer Mother 63 lumpectomy, radiation, anastrozole x 5 years Diabetes Mother Skin Cancer Mother basel cell Renal Disease Mother other (chf) Mother Arthritis Father Lipids Father High Triglycerides Heart Father ICD/pacer, CHF/s/p VT (cause of ) Diabetes Father other (renal failure) Father Osteoporosis Sister Diabetes Sister Lipids Sister Osteoporosis Sister other (hydrocephalus) Sister other (spina bifida) Sister Hypertension Brother Osteoporosis Maternal Grandmother Colon Cancer Paternal Grandmother Cancer Paternal Grandfather HCC-EtOH abuse No Known Problems Daughter other (POTS) Daughter 28 other (PCOS) Daughter 25 Heart Maternal Uncle enlarged heart: cardiomyopathy other (ETOH) Paternal Uncle liver, cause of Breast Cancer Maternal cousin 49 Ovarian cancer No Family History Current Outpatient prescriptions: prucalopride 2 mg tablet (MOTEGRITY) Take 1 tablet by mouth once daily. famotidine (PEPCID) 20 mg tablet TAKE 1 TABLET TWICE A DAY NEEDED estradiol (ESTRACE) 0.01 % (0.1 mg/gram) vaginal cream INSERT 1 GRAM VAGINALLY 3 TIMES A WEEK BEFORE BED omeprazole (PRILOSEC) 20 mg capsule TAKE 1 CAPSULE ONCE DAILY rosuvastatin (CRESTOR) 5 mg tablet Take 1 tablet by mouth daily at bedtime. venlafaxine ER (EFFEXOR XR) 37.5 mg 24 hr capsule TAKE 1 CAPSULE ONCE DAILY KRILL OIL ORAL Take 800 mg by mouth once daily. GEMTESA 75 mg tablet Take 75 mg by mouth once daily. COMPRESSION SLEEVE as directed. Breast cancer. 20-30 mmHg mecobalamin (B12 ACTIVE ORAL) Take 1 tablet by mouth once daily. CALCIUM CARBONATE/VITAMIN D3 (VITAMIN D-3 ORAL) Take by mouth twice daily. Allergies: ALLERGIES Allergen Reactions Penicillins Hives Other reaction(s): hives all over body Nickel Rash ROS: See HPI PE: 03/20/25 0739 BP: 100/70 Pulse: 68 Resp: 16 Temp: (!) 35.9 ?C (96.7 ?F) TempSrc: Right Tympanic Weight: 63.5 kg (140 lb) Height: 160 cm (5' 2.99) Gen: AANDO, NAD, non-toxic appearing, Pleasant, cooperative HEENT: NT/AC, PERRLA, EOMs intact b/l, nares clear and patent b/l, pharynx without erythema, exudate or lesions. Uvula midline. MMM, EACs without erythema or debris. TMs pearly collazo with intact landmarks b/l. Neck: supple, No cervical LAD, no thyromegaly, no carotid bruits CV: RRR, normal S1 and S2, no murmurs, no gallops, no rubs, Pulses 2+ and symmetric in UE and (more content not included)... [facility] 03-20-2025 History of Presen t illness Narrative CC: Greyson Rojas is a 55 year old female who presents to the office to establish care. HPI: Left knee pain, chronic since her left knee replacement surgery. She is likely to have upcoming popliteal surgery for entrapment syndrome by Dr. [facility]. Hiatal hernia, GERD symptoms stable. Taking Pepcid medication and Prilosec Mood, post menopausal symptoms, stable with Effexor, taking as prescribed, no concerns. HPL, taking Crestor 5 mg a day, tolerating well without SE She isn't interested in pneumococcal vaccine and hepatitis b vaccine recommended. PAST MEDICAL HISTORY Diagnosis Date Anemia, unspecified iron deficiency Breast cancer (HCC) 08/2017 Breast mass 06/2017 right breast Diffuse cystic mastopathy Helicobacter pylori infection Hiatal hernia History of prolapse of bladder Major depressive disorder, single episode, unspecified 1999 depressed year after 3rd child: treated for 1 year with Zoloft Meniere disease Dr. [facility] Panic disorder without agoraphobia periodic symptoms Use of tamoxifen (Nolvadex) 03/27/2023 PAST SURGICAL HISTORY Procedure Laterality Date BREAST RECONSTRUCTION implants removed and replaced BX BREAST W/DEVICE 1ST LESION ULTRASOUND GUID Right 06/12/2017 3 nodules; 5cm, 3cm, 3cm COLONOSCOPY 03/16/2023 COLONOSCOPY FLX DX W/COLLJ SPEC WHEN PFRMD 03/01/2018 Colonoscopy CYSTOCELE REPAIR 01/07/2024 CYSTOCELE REPAIR 01/07/2024 EGD N/A 11/05/2021 EGD W/O [facility] SPEC VARICIES INJ 04/29/2024 Normal FOOT SURGERY HX Left 1982 Arch reshaping HIP SURGERY HX 01/08/2022 torn labrum, reshaped femoral head LAPAROSCOPIC SALPING/OOPHORECTOMY Right 02/24/2019 Dr. Jasmin Sosa MASTECTOMY, SIMPLE, COMPLETE Bilateral 08/18/2017 Dr. Johnson (reconstruction), Dr. 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 Sosa-[facility] TOTAL ABD HYSTERECTOMY+BLAD REPR N/A 2020 left ovary removed; Dr. Sosa-[facility]- total hysterectomy with rectocele and bladder sling TOTAL KNEE REPLACEMENT Left 07/24/2023 Social History: SOCIAL HISTORY[1] FAMILY HISTORY Problem Relation Age of Onset Cancer Mother melanoma Hypertension Mother Lipids Mother Breast Cancer Mother 63 lumpectomy, radiation, anastrozole x 5 years Diabetes Mother Skin Cancer Mother basel cell Renal Disease Mother other (chf) Mother Arthritis Father Lipids Father High Triglycerides Heart Father ICD/pacer, CHF/s/p VT (cause of ) Diabetes Father other (renal failure) Father Osteoporosis Sister Diabetes Sister Lipids Sister Osteoporosis Sister other (hydrocephalus) Sister other (spina bifida) Sister Hypertension Brother Osteoporosis Maternal Grandmother Colon Cancer Paternal Grandmother Cancer Paternal Grandfather HCC-EtOH abuse No Known Problems Daughter other (POTS) Daughter 28 other (PCOS) Daughter 25 Heart Maternal Uncle enlarged heart: cardiomyopathy other (ETOH) Paternal Uncle liver, cause of Breast Cancer Maternal cousin 49 Ovarian cancer No Family History Current Outpatient prescriptions: prucalopride 2 mg tablet (MOTEGRITY) Take 1 tablet by mouth once daily. famotidine (PEPCID) 20 mg tablet TAKE 1 TABLET TWICE A DAY NEEDED estradiol (ESTRACE) 0.01 % (0.1 mg/gram) vaginal cream INSERT 1 GRAM VAGINALLY 3 TIMES A WEEK BEFORE BED omeprazole (PRILOSEC) 20 mg capsule TAKE 1 CAPSULE ONCE DAILY rosuvastatin (CRESTOR) 5 mg tablet Take 1 tablet by mouth daily at bedtime. venlafaxine ER (EFFEXOR XR) 37.5 mg 24 hr capsule TAKE 1 CAPSULE ONCE DAILY KRILL OIL ORAL Take 800 mg by mouth once daily. GEMTESA 75 mg tablet Take 75 mg by mouth once daily. COMPRESSION SLEEVE as directed. Breast cancer. 20-30 mmHg mecobalamin (B12 ACTIVE ORAL) Take 1 tablet by mouth once daily. CALCIUM CARBONATE/VITAMIN D3 (VITAMIN D-3 ORAL) Take by mouth twice daily. Allergies: ALLERGIES Allergen Reactions Penicillins Hives Other reaction(s): hives all over body Nickel Rash ROS: See HPI PE: 03/20/25 0739 BP: 100/70 Pulse: 68 Resp: 16 Temp: (!) 35.9 C (96.7 F) TempSrc: Right Tympanic Weight: 63.5 kg (140 lb) Height: 160 cm (5' 2.99) Gen: A&O, NAD, non-toxic appearing, Pleasant, cooperative HEENT: NT/AC, PERRLA, EOMs intact b/l, nares clear and patent b/l, pharynx without erythema, exudate or lesions. Uvula midline. MMM, EACs without erythema or debris. TMs pearly collazo with intact landmarks b/l. Neck: supple, No cervical LAD, no thyromegaly, no carotid bruits CV: RRR, normal S1 and S2, no murmurs, no gallops, no rubs, Pulses 2+ and symmetric in UE and LE b/l Lungs: normal respiratory effort, CTA b/l, no wheezing or rhonchi or rales Abd: soft, NT, ND, +BS, no hepatosplenomegaly MS: reduced ROM left knee due to pain- hx of left total knee replacement surgery, no signs of erythema or infection Neuro: CN II-XII intact b/l, strength 5/5 b/l UE and LE, DTRs 2/4 UE and LE, sensation intact. Skin: warm, dry, intact, No rashes or lesions on exposed skin. No edema, normal peripheral pulses ASSESSMENT/PLAN: 1. Well adult exam - ICD9: V70.0, ICD10: Z00.00 (primary diagnosis) - Counseled on healthy diet and regular exercise 2. Encounter for screening for cardiovascular disorders - ICD9: V81.2, ICD10: Z13.6 - CT CALCIUM SCORING SELF PAY 3. Family history of early CAD - ICD9: V17.3, ICD10: Z82.49 - CT CALCIUM SCORING SELF PAY 4. Hyperlipidemia, mixed - ICD9: 272.2, ICD10: E78.2 - Controlled - Continue current medications - Counseled on healthy diet and regular exercise - CT CALCIUM SCORING SELF PAY 5. Fatigue, unspecified type - ICD9: 780.79, ICD10: R53.83 stable 6. Gastroesophageal reflux disease without esophagitis - ICD9: 530.81, ICD10: K21.9 - Discussed lifestyle modifications including losing weight, limiting caffeine, no meals three hours before sleep, and head of bed elevation - Continue treatment with PPI QD 7. Vitamin D deficiency - ICD9: 268.9, ICD10: E55.9 stable 8. Left knee pain, unspecified chronicity - ICD9: 719.46, ICD10: M25.562 F/u with Dr. Mamadou Sanches DO To ER if develops chest pain, shortness of breath, or severe worsening of symptoms. Discussed risks, benefits, alternatives, and potential side effects of medications. Patient expressed understanding and agreed with the plan. Gallo Sanches DO [address] [place] [address] [1] Social History Tobacco Use Smoking status: Never Smokeless tobacco: Never Vaping Use Vaping status: Never Used Substance Use Topics Alcohol use: No Drug use: No documented in this encounter [facility] 03-06-2025 Telephone encounter Note Pt. informed via My Chart. [facility] Work Phone: 03-06-2025 Miscellaneous Notes Pt. informed via My Chart. Labs are ordered Please let her know Gallo Sanches DO Images from the original note were not included. Clementina Rojas [facility] Clinical Pool [facility] Doctor G- I have my yearly check up coming up on . I was wondering if you would put in an order for the yearly bloodwork tests that we do so that I can do that ahead of my appointment. Thanks Clementina documented in this encounter [facility] 03-06-2025 Telephone encounter Note Labs are ordered Please let her know Gallo Sanches DO [facility] 03-06-2025 Telephone encounter Note See telephone note [facility] Work Phone: 03-06-2025 Telephone encounter Note Images from the original note were not included. Clementina Rojas [facility] Clinical Pool [facility] Doctor G- I have my yearly check up coming up on . I was wondering if you would put in an order for the yearly bloodwork tests that we do so that I can do that ahead of my appointment. Thanks Clementina [facility] 03-06-2025 Miscellaneous Notes See telephone note documented in this encounter [facility] 02-10-2025 Note HNO ID: [id number] Author: SHANA HOLDER LPN Service: ? Author Type: LICENSED NURSE Type: Progress Notes Filed: 02/10/2025 09:35 Note Text: OPENED IN ERROR [facility] 02-07-2025 Telephone encounter Note Trulance sent to pharmacy. Patient has failed Linzess, IBSRELA, Motegrity [facility] 02-07-2025 Miscellaneous Notes Pravin sent to pharmacy. Patient has failed Linzess, IBSRELA, Motegrity documented in this encounter [facility] 01-30-2025 Note HNO ID: [id number] Author: CECI LUNA PA-C Service: ? Author Type: Physician Personnel Associate Type: Progress Notes Filed: 01/30/2025 10:33 Note Text: CHIEF COMPLAINT: Patient presents with: Recheck: IBS HPI Greyson Rojas is a 55 year old female here today for Recheck (IBS ) Patient tells me that she is doing okay. Notes that her constipation comes and flares. Notes that she is taking IBSRELA BID. Will have constipation or profuse diarrhea. Will add prunes or a stool softener but her bowels are all over the place. She is having bloating and pain on occasion. Still gluten free. Last OV with me 08/01/2024: Assessment/Plan (K21.9) Gastroesophageal reflux disease, unspecified whether esophagitis present (primary encounter diagnosis) (K58.1) Irritable bowel syndrome with constipation (K90.41) NCGS (non-celiac gluten sensitivity) (R14.0) Bloating 1. Gastroesophageal reflux disease, unspecified whether esophagitis present -- Patient doing well today on Omeprazole 20 mg and Pepcid. Refilled her Pepcid today. - famotidine (PEPCID) 20 mg tablet; Take 1 tablet by mouth two times a day as needed. Dispense: 120 tablet; Refill: 3 2. Irritable bowel syndrome with constipation -- Patient with ongoing bowel changes with bloating. Still taking the IBSRELA but uncertain if it is helping. -- Will get abdominal x-ray r/o stool burden -- Will get Fructose testing -- CSID box given today as well - BREATH TEST FRUCTOSE; Future - XR ABDOMEN 2V ROUTINE SUPINE W UPRIGHT/DECUB/CTL; Future 3. NCGS (non-celiac gluten sensitivity) -- Continue with watching gluten -- Will get Fructose testing -- CSID box given today as well - BREATH TEST FRUCTOSE; Future 4. Bloating -- Continue with watching gluten -- Will get Fructose testing -- CSID box given today as well - BREATH TEST FRUCTOSE; Future Follow up in office 6 months/PRN. Current Outpatient Medications Medication Sig famotidine (PEPCID) 20 mg tablet TAKE 1 TABLET TWICE A DAY NEEDED estradiol (ESTRACE) 0.01 % (0.1 mg/gram) vaginal cream INSERT 1 GRAM VAGINALLY 3 TIMES A WEEK BEFORE BED IBSRELA 50 mg tablet TAKE ONE TABLET BY MOUTH TWICE DAILY WITH MEALS omeprazole (PRILOSEC) 20 mg capsule TAKE 1 CAPSULE ONCE DAILY rosuvastatin (CRESTOR) 5 mg tablet Take 1 tablet by mouth daily at bedtime. venlafaxine ER (EFFEXOR XR) 37.5 mg 24 hr capsule TAKE 1 CAPSULE ONCE DAILY KRILL OIL ORAL Take 800 mg by mouth once daily. GEMTESA 75 mg tablet Take 75 mg by mouth once daily. COMPRESSION SLEEVE as directed. Breast cancer. 20-30 mmHg mecobalamin (B12 ACTIVE ORAL) Take 1 tablet by mouth once daily. CALCIUM CARBONATE/VITAMIN D3 (VITAMIN D-3 ORAL) Take by mouth twice daily. No current facility-administered medications for this visit. ALLERGIES Allergen Reactions Penicillins Hives Other reaction(s): hives all over body Nickel Rash Social History Tobacco Use Smoking status: Never Smokeless tobacco: Never Vaping Use Vaping status: Never Used Substance Use Topics Alcohol use: No Drug use: No PAST MEDICAL HISTORY Diagnosis Date Anemia, unspecified iron deficiency Breast cancer (HCC) 08/2017 Breast mass 06/2017 right breast Diffuse cystic mastopathy Helicobacter pylori infection Hiatal hernia History of prolapse of bladder Major depressive disorder, single episode, unspecified 1999 depressed year after 3rd child: treated for 1 year with Zoloft Meniere disease Dr. [facility] Panic disorder without agoraphobia periodic symptoms Use of tamoxifen (Nolvadex) 03/27/2023 PAST SURGICAL HISTORY Procedure Laterality Date BREAST RECONSTRUCTION implants removed and replaced BX BREAST W/DEVICE 1ST LESION ULTRASOUND GUID Right 06/12/2017 3 nodules; 5cm, 3cm, 3cm COLONOSCOPY 03/16/2023 COLONOSCOPY FLX DX W/COLLJ SPEC WHEN PFRMD 03/01/2018 Colonoscopy CYSTOCELE REPAIR 01/07/2024 CYSTOCELE REPAIR 01/07/2024 EGD N/A 11/05/2021 [facility]ICIES IN[facility] 04/29/2024 Normal FOOT SURGERY HX Left 1981 Arch reshaping HIP SURGERY HX 01/08/2022 torn labrum, reshaped femoral head LAPAROSCOPIC SALPING/OOPHORECTOMY Right 02/24/2019 Dr. Jasmin Sosa MASTECTOMY, SIMPLE, COMPLETE Bilateral 08/18/2017 Dr. Johnson (reconstruction), Dr. 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 Sosa-[facility] TOTAL ABD HYSTERECTOMY+BLAD REPR N/A 2020 left ovary removed; Dr. Sosa-[facility]- total hysterectomy with rectocele and bladder sling TOTAL KNEE REPLACEMENT Left 07/24/2023 FAMILY HISTORY Problem Relation Age of Onset Cancer Mother melanoma Hypertension Mother Lipids Mother Breast Cancer Mother 63 lumpectomy, radiation, anastrozole x 5 years Diabetes Mother Skin Cancer Mother basel cell (more content not included)... [facility] 01-30-2025 History of Presen t illness Narrative CHIEF COMPLAINT: Patient presents with: Recheck: IBS HPI Greyson Rojas is a 55 year old female here today for Recheck (IBS ) Patient tells me that she is doing okay. Notes that her constipation comes and flares. Notes that she is taking IBSRELA BID. Will have constipation or profuse diarrhea. Will add prunes or a stool softener but her bowels are all over the place. She is having bloating and pain on occasion. Still gluten free. Last OV with me 08/01/2024: Assessment/Plan (K21.9) Gastroesophageal reflux disease, unspecified whether esophagitis present (primary encounter diagnosis) (K58.1) Irritable bowel syndrome with constipation (K90.41) NCGS (non-celiac gluten sensitivity) (R14.0) Bloating 1. Gastroesophageal reflux disease, unspecified whether esophagitis present -- Patient doing well today on Omeprazole 20 mg and Pepcid. Refilled her Pepcid today. - famotidine (PEPCID) 20 mg tablet; Take 1 tablet by mouth two times a day as needed. Dispense: 120 tablet; Refill: 3 2. Irritable bowel syndrome with constipation -- Patient with ongoing bowel changes with bloating. Still taking the IBSRELA but uncertain if it is helping. -- Will get abdominal x-ray r/o stool burden -- Will get Fructose testing -- CSID box given today as well - BREATH TEST FRUCTOSE; Future - XR ABDOMEN 2V ROUTINE SUPINE W UPRIGHT/DECUB/CTL; Future 3. NCGS (non-celiac gluten sensitivity) -- Continue with watching gluten -- Will get Fructose testing -- CSID box given today as well - BREATH TEST FRUCTOSE; Future 4. Bloating -- Continue with watching gluten -- Will get Fructose testing -- CSID box given today as well - BREATH TEST FRUCTOSE; Future Follow up in office 6 months/PRN. Current Outpatient Medications Medication Sig famotidine (PEPCID) 20 mg tablet TAKE 1 TABLET TWICE A DAY NEEDED estradiol (ESTRACE) 0.01 % (0.1 mg/gram) vaginal cream INSERT 1 GRAM VAGINALLY 3 TIMES A WEEK BEFORE BED IBSRELA 50 mg tablet TAKE ONE TABLET BY MOUTH TWICE DAILY WITH MEALS omeprazole (PRILOSEC) 20 mg capsule TAKE 1 CAPSULE ONCE DAILY rosuvastatin (CRESTOR) 5 mg tablet Take 1 tablet by mouth daily at bedtime. venlafaxine ER (EFFEXOR XR) 37.5 mg 24 hr capsule TAKE 1 CAPSULE ONCE DAILY KRILL OIL ORAL Take 800 mg by mouth once daily. GEMTESA 75 mg tablet Take 75 mg by mouth once daily. COMPRESSION SLEEVE as directed. Breast cancer. 20-30 mmHg mecobalamin (B12 ACTIVE ORAL) Take 1 tablet by mouth once daily. CALCIUM CARBONATE/VITAMIN D3 (VITAMIN D-3 ORAL) Take by mouth twice daily. No current facility-administered medications for this visit. ALLERGIES Allergen Reactions Penicillins Hives Other reaction(s): hives all over body Nickel Rash Social History Tobacco Use Smoking status: Never Smokeless tobacco: Never Vaping Use Vaping status: Never Used Substance Use Topics Alcohol use: No Drug use: No PAST MEDICAL HISTORY Diagnosis Date Anemia, unspecified iron deficiency Breast cancer (HCC) 08/2017 Breast mass 06/2017 right breast Diffuse cystic mastopathy Helicobacter pylori infection Hiatal hernia History of prolapse of bladder Major depressive disorder, single episode, unspecified 1999 depressed year after 3rd child: treated for 1 year with Zoloft Meniere disease Dr. Marie ENT Panic disorder without agoraphobia periodic symptoms Use of tamoxifen (Nolvadex) 03/27/2023 PAST SURGICAL HISTORY Procedure Laterality Date BREAST RECONSTRUCTION implants removed and replaced BX BREAST W/DEVICE 1ST LESION ULTRASOUND GUID Right 06/12/2017 3 nodules; 5cm, 3cm, 3cm COLONOSCOPY 03/16/2023 COLONOSCOPY FLX DX W/COLLJ SPEC WHEN PFRMD 03/01/2018 Colonoscopy CYSTOCELE REPAIR 01/07/2024 CYSTOCELE REPAIR 01/07/2024 EGD N/A 11/05/2021 EGD W/O [facility] SPEC VARICIES INJ 04/29/2024 Normal FOOT SURGERY HX Left 1981 Arch reshaping HIP SURGERY HX 01/08/2022 torn labrum, reshaped femoral head LAPAROSCOPIC SALPING/OOPHORECTOMY Right 02/24/2019 Dr. Jasmin Sosa MASTECTOMY, SIMPLE, COMPLETE Bilateral 08/18/2017 Dr. Johnson (reconstruction), Dr. 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 Sosa-[facility] TOTAL ABD HYSTERECTOMY+BLAD REPR N/A 2020 left ovary removed; Dr. Sosa[facility]- total hysterectomy with rectocele and bladder sling TOTAL KNEE REPLACEMENT Left 07/24/2023 FAMILY HISTORY Problem Relation Age of Onset Cancer Mother melanoma Hypertension Mother Lipids Mother Breast Cancer Mother 63 lumpectomy, radiation, anastrozole x 5 years Diabetes Mother Skin Cancer Mother basel cell Arthritis Father Lipids Father High Triglycerides Heart Father ICD/pacer, CHF/s/p VT (cause of ) Diabetes Father Osteoporosis Sister Diabetes Sister Lipids Sister Osteoporosis Sister other (hydrocephalus) Sister other (spina bifida) Sister Hypertension Brother Osteoporosis Maternal Grandmother Colon Cancer Paternal Grandmother Cancer Paternal Grandfather HCC-EtOH abuse No Known Problems Daughter other (POTS) Daughter 28 other (PCOS) Daughter 25 Heart Maternal Uncle enlarged heart: cardiomyopathy other (ETOH) Paternal Uncle liver, cause of Breast Cancer Maternal cousin 49 REVIEW OF SYSTEMS Review of Systems Constitutional: Positive for unexpected weight change. Respiratory: Positive for cough. Gastrointestinal: Positive for abdominal distention and constipation. All other systems reviewed and are negative. PHYSICAL EXAM BP 104/70 Pulse 60 Ht 5' 4.25 (1.63m) Wt 142 lb 8.3 oz (64.6kg) LMP 06/08/2020 BMI 24.27 kg/(m^2). Physical Exam Constitutional: Appearance: Normal appearance. She is normal weight. HENT: Head: Normocephalic and atraumatic. Eyes: General: No scleral icterus. Extraocular Movements: Extraocular movements intact. Conjunctiva/sclera: Conjunctivae normal. Pupils: Pupils are equal, round, and reactive to light. Cardiovascular: Rate and Rhythm: Normal rate and regular rhythm. Pulses: Normal pulses. Heart sounds: Normal heart sounds. Pulmonary: Effort: Pulmonary effort is normal. Breath sounds: Normal breath sounds. Abdominal: General: Abdomen is flat. Bowel sounds are normal. There is no distension. Palpations: Abdomen is soft. Tenderness: There is no abdominal tenderness. Musculoskeletal: General: Normal range of motion. Cervical back: Normal range of motion and neck supple. Skin: General: Skin is warm and dry. Coloration: Skin is not jaundiced. Neurological: General: No focal deficit present. Mental Status: She is alert and oriented to person, place, and time. Psychiatric: Mood and Affect: Mood normal. Behavior: Behavior normal. Thought Content: Thought content normal. Judgment: Judgment normal. Assessment/Plan (K58.1) Irritable bowel syndrome with constipation (primary encounter diagnosis) 1. Irritable bowel syndrome with constipation (Primary) -- Patient with ongoing IBS-C, bowels are alternating. Doesn't feel like the IBSRELA is working anymore. -- Patient has failed Linzess. Will try Motegrity 2 mg daily. Script sent to pharmacy. She will reach out with an update. - prucalopride 2 mg tablet (MOTEGRITY); Take 1 tablet by mouth once daily. Dispense: 30 tablet; Refill: 1 Follow up in office 3 months/PRN. Recommended to please call office/go to ER if fever, chills, chest pain, SOB, diarrhea, nausea, emesis, worsening abdominal pain, dehydration occurs I spent a total of 15 minutes on the date of the service which included preparing to see the patient, [id number] patient care, completing clinical documentation, obtaining and/or reviewing separately obtained history, performing a medically appropriate examination, counseling and educating the patient/family/caregiver, and ordering medications, tests, or procedures. Ceci Luna PA-C January 30, 2025 10:27 AM documented in this encounter [facility] 01-16-2025 Telephone encounter Note [facility] 08/01/24 Next appt 01/30/25 Patient phones requesting refills as follows: Requested Prescriptions Pending Prescriptions Disp Refills famotidine (PEPCID) 20 mg tablet [Pharmacy Med Name: FAMOTIDINE TAB 20MG] 180 tablet 1 Sig: TAKE 1 TABLET TWICE A DAY NEEDED Last sent 08/01/24 Order pended Please review and advise. Brenda Gonzales RN [facility] 01-16-2025 Miscellaneous Notes [facility] 08/01/24 Next appt 01/30/25 Patient phones requesting refills as follows: Requested Prescriptions Pending Prescriptions Disp Refills famotidine (PEPCID) 20 mg tablet [Pharmacy Med Name: FAMOTIDINE TAB 20MG] 180 tablet 1 Sig: TAKE 1 TABLET TWICE A DAY NEEDED Last sent 08/01/24 Order pended Please review and advise. Brenda Gonzales RN documented in this encounter [facility] 01-02-2025 Instructions Yovani Donohue MD - 01/02/2025 10:20 AM EDT Your examination still shows some slowness of motion but continues to be very subtle. We agreed to continue with aerobic exercise and return in 6 months for follow up. documented in this encounter [facility] 01-02-2025 Note HNO ID: [id number] Author: YOVANI DONOHUE MD Service: ? Author Type: Physician Type: Progress Notes Filed: 01/02/2025 10:58 Note Text: [facility] - FOLLOW UP EVALUATION Recording using ambient [employer] software for draft documentation of the visit was discussed with the patient/authorized sales representative metals; all questions welcomed and answered. Patient/authorized sales representative metals agreed to proceed Gallo Sanches DO [id number] [place] [address] Dear Gallo Sanches DO: I had the pleasure of seeing Ms. Rojas for follow-up today. As you know she is a 54 year old right-handed female with a history of Facial twitching since 2022. 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 Not currently Interval History: Clementina is a 54-year-old female presenting for follow-up regarding facial twitching and possible bradykinesia. Clementina reports that facial twitching occurs primarily after consuming larger amounts of caffeine. The twitching is brief, affecting the right side of her face and the left side above her lip. She has not been able to capture these episodes on video due to their short duration. Since switching to decaffeinated coffee and soda, she notes a significant reduction in twitching episodes, which now occur only after occasional caffeinated beverages. She also experiences occasional tremors in her right arm, which she associates with caffeine intake or after intense arm workouts. She underwent a bilateral mastectomy for breast cancer, with more extensive surgery on the right side, and wonders if this contributes to the tremors. She does not report tremors at rest, changes in handwriting size, or any new symptoms of slowness or shuffling. She does not endorse falls, memory changes, hallucinations, or changes in her sense of smell, though she notes that her sense of smell has been inconsistent since a COVID-19 infection. She has a history of a shoulder fracture approximately eight years ago, which healed slightly crooked without surgery. She does not report any current issues related to this injury. 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 She engages in regular physical activity, including using an elliptical machine to improve arm function. She also reports being a sleep talker, sometimes reenacting teaching scenarios or games in her sleep, but does not endorse acting out dreams with physical movements such as kicking or punching. Movement Disorders Medications Schedule - as of the start of the visit: Medications Questionnaires: In addition, the following symptoms that may be associated with Tourette?s syndrome or tic disorder were evaluated on how much they bothered the patent in the past week: Irritable: (P) No Motor tics: (P) Yes, a little Being argumentative: (P) Yes (a little) Sudden mood changes: (P) Yes (a little) Demanding attention: (P) o Being hot tempered: (P) Yes (a little) Vocal tics: (P) Yes, a little Obsessiveness: (P) No Inattentiveness: (P) Yes, a little Being talkative: (P) No Feeling restless: (P) Yes (a little) Compulsions: (P) No Tense, anxious, nervous: (P) Yes (a little) Depressed, uninterested: (P) No Impulsive: (P) No Number of falls in the Last Month: 0 Mood/Behavior Depression: PHQ-9 Score: 0 usually representing no significant (0-4) depression. Anxiety: ELADIA-7 Total Score: 0 usually representing no significant (0-4) anxiety. Finally, the following table shows the patient's overall global physical and mental health using the PROMIS scale: PROMIS-10 Flowsheet Row Office Visit from 01/02/2025 in Neurology [facility] Office Visit from 03/16/2024 in Family Medicine [facility] Global Physical Health T Score 54.1 54.1 Global Mental Health T Score 53.3 56 0-10 Standard Pain Scale 4 4 *PROMIS-10 scoring scale: mean = 50, over 50 is above average, under 50 is below average ALLERGIES Allergen Reactions Penicillins Hives Other reaction(s): hives all over body Nickel Rash Current Outpatient Medications Medication Sig estradiol (ESTRACE) 0.01 % (0.1 mg/gram) vaginal cream INSERT 1 GRAM VAGINALLY 3 TIMES A WEEK BEFORE BED IBSRELA 50 mg tablet TAKE ONE TABLET BY MOUTH TWICE DAILY WITH MEALS omeprazole (PRILOSEC) 20 mg capsule TAKE 1 CAPSULE ONCE DAILY rosuvastatin (CRESTOR) 5 mg tablet Take 1 tablet by mouth daily at bedtime. venlafaxine ER (EFFEXOR XR) 37.5 mg 24 hr capsule TAKE 1 CAPSULE ONCE DAILY famotidine (PEPCID) 20 mg tablet Take 1 tablet by mouth two times a day as needed. KRILL OIL ORAL Take 800 mg by mouth once daily. GEMTESA 75 mg tablet Take 75 mg by mouth once daily. COMPRESSION SLEEVE as directed. Breast cancer. 20-30 mmHg mecobalamin (B12 ACTIVE ORAL) Take 1 tablet by mouth o (more content not included)... [facility] 01-02-2025 History of Presen t illness Narrative [facility] - FOLLOW UP EVALUATION Recording using [employer] software for draft documentation of the visit was discussed with the patient/authorized sales representative metals; all questions welcomed and answered. Patient/authorized sales representative metals agreed to proceed Gallo Sanches DO [address] [facility] [id number] Dear Gallo Sanches DO: I had the pleasure of seeing Ms. Rojas for follow-up today. As you know she is a 54 year old right-handed female with a history of Facial twitching since 2022. 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 Not currently Interval History: Clementina is a 54-year-old female presenting for follow-up regarding facial twitching and possible bradykinesia. Clementina reports that facial twitching occurs primarily after consuming larger amounts of caffeine. The twitching is brief, affecting the right side of her face and the left side above her lip. She has not been able to capture these episodes on video due to their short duration. Since switching to decaffeinated coffee and soda, she notes a significant reduction in twitching episodes, which now occur only after occasional caffeinated beverages. She also experiences occasional tremors in her right arm, which she associates with caffeine intake or after intense arm workouts. She underwent a bilateral mastectomy for breast cancer, with more extensive surgery on the right side, and wonders if this contributes to the tremors. She does not report tremors at rest, changes in handwriting size, or any new symptoms of slowness or shuffling. She does not endorse falls, memory changes, hallucinations, or changes in her sense of smell, though she notes that her sense of smell has been inconsistent since a COVID-19 infection. She has a history of a shoulder fracture approximately eight years ago, which healed slightly crooked without surgery. She does not report any current issues related to this injury. 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 She engages in regular physical activity, including using an elliptical machine to improve arm function. She also reports being a sleep talker, sometimes reenacting teaching scenarios or games in her sleep, but does not endorse acting out dreams with physical movements such as kicking or punching. Movement Disorders Medications Schedule - as of the start of the visit: Medications Questionnaires: In addition, the following symptoms that may be associated with Tourette s syndrome or tic disorder were evaluated on how much they bothered the patent in the past week: Irritable: (P) No Motor tics: (P) Yes, a little Being argumentative: (P) Yes (a little) Sudden mood changes: (P) Yes (a little) Demanding attention: (P) o Being hot tempered: (P) Yes (a little) Vocal tics: (P) Yes, a little Obsessiveness: (P) No Inattentiveness: (P) Yes, a little Being talkative: (P) No Feeling restless: (P) Yes (a little) Compulsions: (P) No Tense, anxious, nervous: (P) Yes (a little) Depressed, uninterested: (P) No Impulsive: (P) No Number of falls in the Last Month: 0 Mood/Behavior Depression: PHQ-9 Score: 0 usually representing no significant (0-4) depression. Anxiety: ELADIA-7 Total Score: 0 usually representing no significant (0-4) anxiety. Finally, the following table shows the patient's overall global physical and mental health using the PROMIS scale: PROMIS-10 Flowsheet Row Office Visit from 01/02/2025 in Neurology [facility] Office Visit from 03/16/2024 in Family Medicine [facility] Global Physical Health T Score 54.1 54.1 Global Mental Health T Score 53.3 56 0-10 Standard Pain Scale 4 4 *PROMIS-10 scoring scale: mean = 50, over 50 is above average, under 50 is below average ALLERGIES Allergen Reactions Penicillins Hives Other reaction(s): hives all over body Nickel Rash Current Outpatient Medications Medication Sig estradiol (ESTRACE) 0.01 % (0.1 mg/gram) vaginal cream INSERT 1 GRAM VAGINALLY 3 TIMES A WEEK BEFORE BED IBSRELA 50 mg tablet TAKE ONE TABLET BY MOUTH TWICE DAILY WITH MEALS omeprazole (PRILOSEC) 20 mg capsule TAKE 1 CAPSULE ONCE DAILY rosuvastatin (CRESTOR) 5 mg tablet Take 1 tablet by mouth daily at bedtime. venlafaxine ER (EFFEXOR XR) 37.5 mg 24 hr capsule TAKE 1 CAPSULE ONCE DAILY famotidine (PEPCID) 20 mg tablet Take 1 tablet by mouth two times a day as needed. KRILL OIL ORAL Take 800 mg by mouth once daily. GEMTESA 75 mg tablet Take 75 mg by mouth once daily. COMPRESSION SLEEVE as directed. Breast cancer. 20-30 mmHg mecobalamin (B12 ACTIVE ORAL) Take 1 tablet by mouth once daily. CALCIUM CARBONATE/VITAMIN D3 (VITAMIN D-3 ORAL) Take by mouth twice daily. loratadine 10 mg cap Take by mouth. No current facility-administered medications for this visit. Objective Vital Signs: BP 107/69 (BP Site: Right Arm, BP Position: Sitting, BP Cuff Size: Regular Adult) Pulse 73 Temp 36.3 C (97.3 F) (Temporal) Wt 63.2 kg (139 lb 5.3 oz) LMP 06/08/2020 (Approximate) BMI 23.73 kg/m Orthostatic Vitals: None for this encounter Patient's last menstrual period was 06/08/2020 (approximate). Body mass index is 23.73 kg/m . Neurological Exam Mental Status Awake, alert and oriented to person, place and time. Oriented to person, place and time. Recent and remote memory are intact. Speech is normal. Language is fluent with no aphasia. Able to spell words backwards. Fund of knowledge is appropriate for level of education. Cranial Nerves CN VIII: Hearing is normal. CN XI: Shoulder shrug strength is normal. Motor Normal muscle bulk throughout. No fasciculations present. Increased muscle tone. Slight increased tone in both UEs. No rest tremor Mild impairment of finger tapping and hand movement on right side Impaired toe tapping on left side Reduced right arm swing on walking. Strength is 5/5 throughout all four extremities. Coordination Right: [id number]-rq-hqxm normal.Left: Oltjkw-xm-ihds normal. Gait Casual gait: Normal stance. Normal stride length. Normal gait. Reduced right arm swing. Normal left arm swing.Normal toe walking. Normal heel walking. Normal tandem gait. Romberg is absent. Normal pull test. Able to rise from chair without using arms. Movement Disorders Scales Performed: MDS-UPDRS Motor subscale condition of exam Medication Off/On/Naiive Drug Naiive Time of UPDRS 1007 Time of Last Medication Last Medication Taken DBS Right DBS Left N/A MDS-UPDRS Motor subscale scores Speech 0-Normal. No speech problems. Facial Expression 1-Slight. Minimal masked facies manifested only by decreased frequency of blinking. Rigidity Neck 0-Normal. No rigidity. Rigidity Right Upper Extremity 1-Slight. Rigidity only detected with activation maneuver. Rigidity Left Upper Extremity 1-Slight. Rigidity only detected with activation maneuver. Rigidity Right Lower Extremity 0-Normal. No rigidity. Rigidity Left Lower Extremity 0-Normal. No rigidity. Finger Taps Right 1-Slight. a) the regular rhythm is broken with one or two interruptions or hesitations of the tapping movement, b) slight slowing, c) the amplitude decrements near the end of the 10 taps. Finger Taps Left 1-Slight. a) the regular rhythm is broken with one or two interruptions or hesitations of the tapping movement, b) slight slowing, c) the amplitude decrements near the end of the 10 taps. Hand Movements Right 1-Slight. a) the regular rhythm is broken with one or two interruptions or hesitations of the movement, b) slight slowing, c) the amplitude decrements near the end of the task. Hand Movements Left 0-Normal. No problem. Arm Movements Right 0-Normal. No problems. Arm Movements Left 0-Normal. No problems. Toe Taps Right 1-Slight. a) the regular rhythm is broken with one or two interruptions or hesitations of the tapping movement, b) slight slowing, c) the amplitude decrements near the end of the ten taps. Toe Taps Left 2-Mild. a) 3 to 5 interruptions during the tapping movements, b) mild slowing, c) the amplitude decrements midway in the task. Leg Agility Right 1-Slight. a) the regular rhythm is broken with one or two interruptions or hesitations of the movement, b) slight slowing, c) the amplitude decrements near the end of the task. Leg Agility Left 0-Normal. No problems. Arise From Chair 0-Normal. No problems. Able to arise quickly without hesitation. Gait 1-Slight. Independent walking with minor gait impairment. Gait Freezing 0-Normal. No freezing. Posture Stability 0-Normal. No problems: recovers with one or two steps. Posture 0-Normal. No problems. Body Bradykinesia 0-Normal. No problems. Postural Tremor Hand Right 0-Normal. No tremor. Postural Tremor Hand Left 0-Normal. No tremor. Kinetic Tremor Right 0-Normal. No tremor. Kinetic Tremor Left 0-Normal. No tremor. Rest Tremor Amplitude Right Upper Extremity 0-Normal. No tremor. Rest Tremor Amplitude Left Upper Extremity 0-Normal. No tremor. Rest Tremor Amplitude Right Lower Extremity 0-Normal. No tremor. Rest Tremor Amplitude Left Lower Extremity 0-Normal. No tremor. Rest Tremor Amplitude Lip/Jaw 0-Normal. No tremor. Rest Tremor Constancy 0-Normal. No tremor. MDS-UPDRS Motor subscale totals Left Total 4 Right Total 5 Midline Total 2 Tremor Total / 10 0 PIGD Total / 3 1 Overall Total 11 Change Better/Worse WORSE % Change Compared to Last Filed Total (!) 120 Assessment and Plan: Assessment Ms. 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 Finger tapping on the right side was slightly slower, and reduced arm swing on the right side noted during gait assessment. Changes are very subtle but slightly more pronounced than the last visit. No resting tremor observed. Differential diagnosis includes Parkinsonism, but symptoms are currently too mild for definitive testing. - Continue regular aerobic exercise to maintain overall health and potentially benefit neurological function. - Monitor symptoms; no pharmacological treatment necessary at this time due to mild presentation. - Scheduled follow-up appointment in six months on July 10 at 11:00 AM for re-evaluation to assess for any progression. Patient's perception of importance for healthcare provider to let them know of research trials for which they may be eligible? Somewhat important Updated Movement Disorders Medication Schedule: Medications Return at or around: 07/04/25 Thank you for allowing me to be part of the clinical care of this patient! I look forward to continued participation in the patient s care with you. Please do not hesitate to call with any questions. Sincerely, Yovani Donohue MD documented in this encounter [facility] 11-09-2024 Note HNO ID: [id number] Author: ADAM JOY RN Service: ? Author Type: Registered Nurse Type: Progress Notes Filed: 11/09/2024 17:06 Note Text: The patient is here for an injection of Prolia Dose: 60 mg Route: Subcutaneous Lot# [id number] Expiration date 01/30/27 ND: 84123-118-21 Given without incident. Site: left arm Dr. Wisdom present in clinic at time of injection. The date due for the next injection is in 6 months, on or after 05/11/25. Last injection: 04/29/24 ZBIGNIEW:10/07/23 NOV: Today Insurance: Primary= MMOO- No PA Required Labs: 03/14/24 Calcium 8.9, 04/18/24 Vitamin D 51.2 DX: M81.8 CPT: J0897 DXA: 05/04/24 (T-Score: -2.1 Spine) Patient education was given by nurse. Patient tolerated Injection well, in NAD and no reactions noted. Medication supplied by [facility]. Adam Joy RN [facility] 11-09-2024 History of Presen t illness Narrative The patient is here for an injection of Prolia Dose: 60 mg Route: Subcutaneous Lot# [id number] Expiration date 01/30/27 ND: 49057-163-74 Given without incident. Site: left arm Dr. Wisdom present in clinic at time of injection. The date due for the next injection is in 6 months, on or after 05/11/25. Last injection: 04/29/24 ZBIGNIEW:10/07/23 NOV: Today Insurance: Primary= MMOO- No PA Required Labs: 03/14/24 Calcium 8.9, 04/18/24 Vitamin D 51.2 DX: M81.8 CPT: J0897 DXA: 05/04/24 (T-Score: -2.1 Spine) Patient education was given by nurse. Patient tolerated Injection well, in NAD and no reactions noted. Medication supplied by [facility]. Adam Joy RN documented in this encounter [facility] 11-09-2024 Note HNO ID: [id number] Author: ESME WISDOM MD Service: ? Author Type: Physician Type: Progress Notes Filed: 11/09/2024 17:18 Note Text: ENDOCRINOLOGY CLINIC NOTE Reason for visit Greyson Rojas is a pleasant 54 year old female with history of GERD and breast cancer presented for follow up of low bone density. HPI Ms. Rojas was diagnosed with breast cancer and underwent b/l mastectomy in 2017, pathology showed lobular carcinoma with no mets. She was started on Tamoxifen 09/2017, and anastrozole in 10/2020 but could not tolerate due to joint pain. The plan is to take Tamoxifen for a total of 5 years (will finish in 09/2022) Of note, she is a carrier for H63D for hemochromatosis. Evaluation in 05/2022 showed total Ca 9. iCa 1.15, P 3.3, vitamin D 68, PTH 59, GFR 67, 24 hr urine Ca 75 and SPEP with no M protein. Screening spine xrays did not show fractures We started her on Evenity in 10/2022 and finished a 1 year course, and was then transition to Prolia. She initially had local skin allergic reaction responded well to Benadryl. She was complaining of knee pain. MRI was done showing arthritic changes She is taking calcium citrate and has vitamin D in it. Labs in 03/2024 showed calcium 8.9, GFR 87, vitamin D 51.2 No falls or fractures since last visit DXA scan 05/30/2024 compared to 2023 Lumbar spine (L1, L2, L3, L4): 0.811 g/cm2, T-score -2.1 (TBS adjusted -2.9) Statistically significant increase Left Femoral Neck: 0.640 g/cm2, T-score -1.9 Statistically significant increase Left Total Hip: 0.800 g/cm2, T-score -1.2 No statistically significant change Fracture history: Shoulder fracture 6 years ago during running and a fall Treatment history (including any side effects/contraindications): Evenity 10/2022-09/2023 Prolia 10/2023-present Family history of metabolic bone disease or fractures: Mother has osteoporosis and had shoulder fracture Father had hip fracture Risk factors: > Menstrual history/male hypogonadism: - last period: early 50s - periods were regular > Medication exposures/pertinent medical or 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: (Glucocorticoid, AED use, relevant medications, hyperthyroidism, kidney stone/disease, eating disorder, malabsorption, immobility, smoking, excessive alcohol use etc) Anastrozole exposure. No smoking or excessive alcohol intake Calcium/Vit D intake: Dietary calcium: Supplements: was on calcium carbonate and switched to citrate 1200 mg per day Vitamin D intake: with the supplements Weight bearing exercise: She does yoga and lift weights, and cardio Dental Procedure: None Radiation Exposure: None Height Loss: Possibly half an inch Past Medical History PAST MEDICAL HISTORY Diagnosis Date Anemia, unspecified iron deficiency Breast cancer (HCC) 08/2017 Breast mass 06/2017 right breast Diffuse cystic mastopathy Helicobacter pylori infection Hiatal hernia History of prolapse of bladder Major depressive disorder, single episode, unspecified 1999 depressed year after 3rd child: treated for 1 year with Zoloft Meniere disease Dr. Marie ENT Panic disorder without agoraphobia periodic symptoms Use of tamoxifen (Nolvadex) 03/27/2023 Past Surgical History PAST SURGICAL HISTORY Procedure Laterality Date BREAST RECONSTRUCTION implants removed and replaced BX BREAST W/DEVICE 1ST LESION ULTRASOUND GUID Right 06/12/2017 3 nodules; 5cm, 3cm, 3cm COLONOSCOPY 03/16/2023 COLONOSCOPY FLX DX W/COLLJ SPEC WHEN PFRMD 03/01/2018 Colonoscopy CYSTOCELE REPAIR 01/07/2024 CYSTOCELE REPAIR 01/07/2024 EGD N/A 11/05/2021 EGD W/O BRSH SPEC VARICIES INJ 04/29/2024 Normal FOOT SURGERY HX Left 1981 Arch reshaping HIP SURGERY HX 01/08/2022 torn labrum, reshaped femoral head LAPAROSCOPIC SALPING/OOPHORECTOMY Right 02/24/2019 Dr. Jasmin Sosa MASTECTOMY, SIMPLE, COMPLETE Bilateral 08/18/2017 Dr. Johnson (reconstruction), Dr. 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 Sosa-[facility] TOTAL ABD HYSTERECTOMY+BLAD REPR N/A 2020 left ovary removed; Dr. Sosa-[facility]- total hysterectomy with rectocele and bladder sling TOTAL KNEE REPLACEMENT Left 07/24/2023 Medications Current Outpatient Medications Medication Sig IBSRELA 50 mg tablet TAKE ONE TABLET BY MOUTH TWICE DAILY WITH MEALS omeprazole (PRILOSEC) 20 mg capsule TAKE 1 CAPSULE ONCE DAILY rosuvastatin (CRESTOR) 5 mg tablet Take 1 tablet by mouth daily at bedtime. venlafaxine ER (EFFEXOR XR) 37.5 mg 24 hr capsule TAKE 1 CAPSULE ONCE DAILY famotidine (PEPCID) 20 mg tablet Take 1 tablet by mouth two times a day as needed. loratadine 10 mg cap Take by mouth. KRILL OIL ORAL Take 800 mg by mouth once daily. GEMTESA 75 mg tablet Take 75 mg by mouth once (more content not included)... [facility] 11-09-2024 History of Presen t illness Narrative Images from the original note were not included. ENDOCRINOLOGY CLINIC NOTE Reason for visit Greyson Rojas is a pleasant 54 year old female with history of GERD and breast cancer presented for follow up of low bone density. HPI Ms. Rojas was diagnosed with breast cancer and underwent b/l mastectomy in 2017, pathology showed lobular carcinoma with no mets. She was started on Tamoxifen 09/2017, and anastrozole in 10/2020 but could not tolerate due to joint pain. The plan is to take Tamoxifen for a total of 5 years (will finish in 09/2022) Of note, she is a carrier for H63D for hemochromatosis. Evaluation in 05/2022 showed total Ca 9. iCa 1.15, P 3.3, vitamin D 68, PTH 59, GFR 67, 24 hr urine Ca 75 and SPEP with no M protein. Screening spine xrays did not show fractures We started her on Evenity in 10/2022 and finished a 1 year course, and was then transition to Prolia. She initially had local skin allergic reaction responded well to Benadryl. She was complaining of knee pain. MRI was done showing arthritic changes She is taking calcium citrate and has vitamin D in it. Labs in 03/2024 showed calcium 8.9, GFR 87, vitamin D 51.2 No falls or fractures since last visit DXA scan 05/30/2024 compared to 2023 Lumbar spine (L1, L2, L3, L4): 0.811 g/cm2, T-score -2.1 (TBS adjusted -2.9) Statistically significant increase Left Femoral Neck: 0.640 g/cm2, T-score -1.9 Statistically significant increase Left Total Hip: 0.800 g/cm2, T-score -1.2 No statistically significant change Fracture history: Shoulder fracture 6 years ago during running and a fall Treatment history (including any side effects/contraindications): Evenity 10/2022-09/2023 Prolia 10/2023-present Family history of metabolic bone disease or fractures: Mother has osteoporosis and had shoulder fracture Father had hip fracture Risk factors: > Menstrual history/male hypogonadism: - last period: early 50s - periods were regular > Medication exposures/pertinent medical or 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: (Glucocorticoid, AED use, relevant medications, hyperthyroidism, kidney stone/disease, eating disorder, malabsorption, immobility, smoking, excessive alcohol use etc) Anastrozole exposure. No smoking or excessive alcohol intake Calcium/Vit D intake: Dietary calcium: Supplements: was on calcium carbonate and switched to citrate 1200 mg per day Vitamin D intake: with the supplements Weight bearing exercise: She does yoga and lift weights, and cardio Dental Procedure: None Radiation Exposure: None Height Loss: Possibly half an inch Past Medical History PAST MEDICAL HISTORY Diagnosis Date Anemia, unspecified iron deficiency Breast cancer (HCC) 08/2017 Breast mass 06/2017 right breast Diffuse cystic mastopathy Helicobacter pylori infection Hiatal hernia History of prolapse of bladder Major depressive disorder, single episode, unspecified 1999 depressed year after 3rd child: treated for 1 year with Zoloft Meniere disease Dr. Marie ENT Panic disorder without agoraphobia periodic symptoms Use of tamoxifen (Nolvadex) 03/27/2023 Past Surgical History PAST SURGICAL HISTORY Procedure Laterality Date BREAST RECONSTRUCTION implants removed and replaced BX BREAST W/DEVICE 1ST LESION ULTRASOUND GUID Right 06/12/2017 3 nodules; 5cm, 3cm, 3cm COLONOSCOPY 03/16/2023 COLONOSCOPY FLX DX W/COLLJ SPEC WHEN PFRMD 03/01/2018 Colonoscopy CYSTOCELE REPAIR 01/07/2024 CYSTOCELE REPAIR 01/07/2024 EGD N/A 11/05/2021 EGD W/O [facility] SPEC VARICIES INJ 04/29/2024 Normal FOOT SURGERY HX Left 1982 Arch reshaping HIP SURGERY HX 01/08/2022 torn labrum, reshaped femoral head LAPAROSCOPIC SALPING/OOPHORECTOMY Right 02/24/2019 Dr. Jasmin Sosa MASTECTOMY, SIMPLE, COMPLETE Bilateral 08/18/2017 Dr. Johnson (reconstruction), Dr. 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 Sosa-[facility] TOTAL ABD HYSTERECTOMY+BLAD REPR N/A 2020 left ovary removed; Dr. Sosa-[facility]- total hysterectomy with rectocele and bladder sling TOTAL KNEE REPLACEMENT Left 07/24/2023 Medications Current Outpatient Medications Medication Sig IBSRELA 50 mg tablet TAKE ONE TABLET BY MOUTH TWICE DAILY WITH MEALS omeprazole (PRILOSEC) 20 mg capsule TAKE 1 CAPSULE ONCE DAILY rosuvastatin (CRESTOR) 5 mg tablet Take 1 tablet by mouth daily at bedtime. venlafaxine ER (EFFEXOR XR) 37.5 mg 24 hr capsule TAKE 1 CAPSULE ONCE DAILY famotidine (PEPCID) 20 mg tablet Take 1 tablet by mouth two times a day as needed. loratadine 10 mg cap Take by mouth. KRILL OIL ORAL Take 800 mg by mouth once daily. GEMTESA 75 mg tablet Take 75 mg by mouth once daily. COMPRESSION SLEEVE as directed. Breast cancer. 20-30 mmHg mecobalamin (B12 ACTIVE ORAL) Take 1 tablet by mouth once daily. CALCIUM CARBONATE/VITAMIN D3 (VITAMIN D-3 ORAL) Take by mouth twice daily. Current Facility-Administered Medications Medication Dose Route Frequency denosumab 60 mg injection (PROLIA) 60 mg SUBCUTANEOUS ONCE (AMB - Up to 30 Days) The medication list in the chart was reviewed. Allergies ALLERGIES Allergen Reactions Penicillins Hives Other reaction(s): hives all over body Nickel Rash The allergy list in the chart was reviewed. Family History FAMILY HISTORY Problem Relation Age of Onset Cancer Mother melanoma Hypertension Mother Lipids Mother Breast Cancer Mother 63 lumpectomy, radiation, anastrozole x 5 years Diabetes Mother Skin Cancer Mother basel cell Arthritis Father Lipids Father High Triglycerides Heart Father ICD/pacer, CHF/s/p VT (cause of ) Diabetes Father Osteoporosis Sister Diabetes Sister Lipids Sister Osteoporosis Sister other (hydrocephalus) Sister other (spina bifida) Sister Hypertension Brother Osteoporosis Maternal Grandmother Colon Cancer Paternal Grandmother Cancer Paternal Grandfather HCC-EtOH abuse No Known Problems Daughter other (POTS) Daughter 28 other (PCOS) Daughter 25 Heart Maternal Uncle enlarged heart: cardiomyopathy other (ETOH) Paternal Uncle liver, cause of Breast Cancer Maternal cousin 49 Social History Social History Tobacco Use Smoking status: Never Smokeless tobacco: Never Vaping Use Vaping status: Never Used Substance Use Topics Alcohol use: No Drug use: No Review of Systems: Point review of systems was negative other than what is mentioned in the H&P Physical Exam BP 116/79 Pulse 66 Resp 16 Ht 163.2 cm (5' 4.25) Wt 63.5 kg (139 lb 15.9 oz) LMP 06/08/2020 (Approximate) SpO2 100% BMI 23.84 kg/m Body mass index is 23.35 kg/m . Last 3 Encounter Ht Readings: Date: Ht: 05/16/2022 161.3 cm (5' 3.5) 04/23/2022 161.3 cm (5' 3.5) 04/03/2022 161.9 cm (5' 3.75) General Appearance: Alert, cooperative, not in distress Previous exam Head: Normocephalic, atraumatic Neck: Supple Cardiovascular: Regular rate and rhythm, no murmur, rub, or gallop Respiratory: Clear to auscultation bilaterally Musculoskeletal: There is tenderness in the mid and lower back Extremities: No edema Skin: no rash Neurologic: AAOx 3 Psychiatric: appropriate mood Imaging DXA scans as above Recent Laboratory Data: Assessment and recommendations Greyson Rojas is a pleasant 54year old female presented for follow-up of low bone density. Low bone density Most recent DXA from 05/2024 showed lowest TBS adjusted T-score -2.9 at the spine. There is significant improvement at the spine and hip levels. Risk factors for low bone density include age, ethnicity, lean body habitus, family history, postmenopausal state and tamoxifen exposure in the premenopausal period. Evaluation for secondary causes of low BMD was unremarkable, other than slightly low urine calcium. Spine x-rays did not show vertebral fractures We started her on Evenity and finished a 12-month course, and was transitioned to Prolia. We will continue with the Prolia every 6 months and we will repeat her DXA scan in 05/2026. We will continue with the current vitamin D and calcium intake, but I asked her to slightly increase her dietary calcium RTC in 1 year but continue to get the Prolia every 6 months Some of the above has been copied from prior documentation on 04/07/2023 but phillips elements reviewed, confirmed, and/or updated by me (Esme Wisdom MD) on 10/07/2023 Medical Decision Making: Problems: Low: Stable chronic illness Data: Unique test result(s) reviewed: 3+ Unique test(s) ordered: 1 Risk: Moderate: Moderate risk from testing/treatment Medical Decision Making Level: 4 - Moderate This note was created using [employer] dictation software. You may find errors that were missed during proofreading. They are purely unintentional and if there are any concerns regarding this dictation, please do not hesitate to call the dictating provider for clarification. Esme Wisdom MD documented in this encounter [facility] 11-04-2024 Telephone encounter Note Patient is scheduled for a Prolia Injection on 11/09/24 at 4:[address] CAM order accordingly. Thank you. [facility] 11-04-2024 Miscellaneous Notes Patient is scheduled for a Prolia Injection on 11/09/24 at 4:[address] CAM order accordingly. Thank you. documented in this encounter [facility] 10-28-2024 Telephone encounter Note Patient has been approved to receive patient assistance through [employer] through 12/18/2024. Jessica Irving MA [facility] 10-28-2024 Miscellaneous Notes Patient has been approved to receive patient assistance through [employer] through 12/18/2024. Jessica Irvign MA documented in this encounter [facility] 10-13-2024 Telephone encounter Note Patient phones requesting refills as follows: Requested Prescriptions Pending Prescriptions Disp Refills IBSRELA 50 mg tablet [Pharmacy Med Name: Ibsrela 50 mg tablet] 60 tablet 5 Sig: TAKE ONE TABLET BY MOUTH TWICE DAILY WITH MEALS Please review and advise. Jessica Irving MA [facility] 10-13-2024 Miscellaneous Notes Patient phones requesting refills as follows: Requested Prescriptions Pending Prescriptions Disp Refills IBSRELA 50 mg tablet [Pharmacy Med Name: Ibsrela 50 mg tablet] 60 tablet 5 Sig: TAKE ONE TABLET BY MOUTH TWICE DAILY WITH MEALS Please review and advise. Jessica Irving MA documented in this encounter [facility] 10-10-2024 Telephone encounter Note Prescription Refill Information The patient has been identified by name and date of : Yes Caregiver verified no other encounters exist for this prescription request: Yes Caregiver confirmed with patient/requestor that no other refills are due, in the near future, with this provider at this time: No The last office visit in the department: 03/16/24 Does the patient have a future office visit with this provider/department: Yes Requested Prescriptions Pending Prescriptions Disp Refills rosuvastatin (CRESTOR) 5 mg tablet 90 tablet 3 Sig: Take 1 tablet by mouth daily at bedtime. Olya Tello MA October 10, 2024 2:28 PM [facility] 10-10-2024 Miscellaneous Notes Prescription Refill Information The patient has been identified by name and date of : Yes Caregiver verified no other encounters exist for this prescription request: Yes Caregiver confirmed with patient/requestor that no other refills are due, in the near future, with this provider at this time: No The last office visit in the department: 03/16/24 Does the patient have a future office visit with this provider/department: Yes Requested Prescriptions Pending Prescriptions Disp Refills rosuvastatin (CRESTOR) 5 mg tablet 90 tablet 3 Sig: Take 1 tablet by mouth daily at bedtime. Olya Tello MA October 10, 2024 2:28 PM documented in this encounter [facility] 10-10-2024 Telephone encounter Note See refill request October 10, 2024 [facility] 10-10-2024 Miscellaneous Notes See refill request October 10, 2024 documented in this encounter [facility] 10-10-2024 Telephone encounter Note Patient phones requesting refills as follows: Requested Prescriptions Pending Prescriptions Disp Refills omeprazole (PRILOSEC) 20 mg capsule [Pharmacy Med Name: OMEPRAZOL RX CAP 20MG] 90 capsule 2 Sig: TAKE 1 CAPSULE ONCE DAILY Please review and advise. Jessica Irving MA [facility] 10-10-2024 Miscellaneous Notes Patient phones requesting refills as follows: Requested Prescriptions Pending Prescriptions Disp Refills omeprazole (PRILOSEC) 20 mg capsule [Pharmacy Med Name: OMEPRAZOL RX CAP 20MG] 90 capsule 2 Sig: TAKE 1 CAPSULE ONCE DAILY Please review and advise. Jessica Irving MA documented in this encounter [facility] 09-26-2024 Telephone encounter Note The patient has been identified by name and date of : Yes Caregiver verified no other encounters exist for this prescription request: Yes Caregiver confirmed with patient/requestor that no other refills are due, in the near future, with this provider at this time: Yes The last office visit in the department: 03/16/2024 Does the patient have a future office visit with this provider/department: Yes 03/20/2025 Requested Prescriptions Pending Prescriptions Disp Refills rosuvastatin (CRESTOR) 5 mg tablet 90 tablet 3 Sig: Take 1 tablet by mouth daily at bedtime. Rama Henry LPN September 26, 2024 8:43 AM [facility] 09-26-2024 Miscellaneous Notes The patient has been identified by name and date of : Yes Caregiver verified no other encounters exist for this prescription request: Yes Caregiver confirmed with patient/requestor that no other refills are due, in the near future, with this provider at this time: Yes The last office visit in the department: 03/16/2024 Does the patient have a future office visit with this provider/department: Yes 03/20/2025 Requested Prescriptions Pending Prescriptions Disp Refills rosuvastatin (CRESTOR) 5 mg tablet 90 tablet 3 Sig: Take 1 tablet by mouth daily at bedtime. Rama Henry LPN September 26, 2024 8:43 AM documented in this encounter [facility] 09-19-2024 Telephone encounter Note The following approved medication requests have been transmitted electronically. Requested Prescriptions Signed Prescriptions Disp Refills venlafaxine ER (EFFEXOR XR) 37.5 mg 24 hr capsule 90 capsule 3 Sig: TAKE 1 CAPSULE ONCE DAILY Authorizing Provider: IZABEL KANG APRN.CUSTOMER SALES SPECIALIST [facility] 09-19-2024 Miscellaneous Notes The following approved medication requests have been transmitted electronically. Requested Prescriptions Signed Prescriptions Disp Refills venlafaxine ER (EFFEXOR XR) 37.5 mg 24 hr capsule 90 capsule 3 Sig: TAKE 1 CAPSULE ONCE DAILY Authorizing Provider: IZABEL KANG APRN.CUSTOMER SALES SPECIALIST documented in this encounter [facility] 09-12-2024 Note SARS-COV-2 (AGENT OF COVID-19) RNA: Not detected INFLUENZA A RNA: Not detected INFLUENZA B RNA: Not detected RESPIRATORY SYNCYTIAL VIRUS (RSV) RNA: Not detected [facility] Comment on above: Performed By: #### [id number] ####[facility] LABCLIA [id number] [address] [place] 09-12-2024 Note HNO ID: [id number] Author: SEGUN GALEANA PA Service: ? Author Type: Physician Personnel Associate Type: Progress Notes Filed: 09/12/2024 11:22 Note Text: This note was created using NoteWriter. Subjective Greyson Rojas is a 54 year old female. HPI 54-year-old female presents for cough, body aches, chills, congestion, fever x 2 days. Patient states Thursday evening started getting sick with a cough. Yesterday she had fever, congestion chills and bodyaches. Tmax 99.6 ?F. She denies any vomiting or diarrhea. 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 No history of COPD or asthma. No chest pain or shortness of breath. No other complaint. PAST MEDICAL HISTORY Diagnosis Date Anemia, unspecified iron deficiency Breast cancer (HCC) 08/2017 Breast mass 06/2017 right breast Diffuse cystic mastopathy Helicobacter pylori infection Hiatal hernia History of prolapse of bladder Major depressive disorder, single episode, unspecified 1999 depressed year after 3rd child: treated for 1 year with Zoloft Meniere disease Dr. Marie ENT Panic disorder without agoraphobia periodic symptoms Use of tamoxifen (Nolvadex) 03/27/2023 PAST SURGICAL HISTORY Procedure Laterality Date BREAST RECONSTRUCTION implants removed and replaced BX BREAST W/DEVICE 1ST LESION ULTRASOUND GUID Right 06/12/2017 3 nodules; 5cm, 3cm, 3cm COLONOSCOPY 03/16/2023 COLONOSCOPY FLX DX W/COLLJ SPEC WHEN PFRMD 03/01/2018 Colonoscopy CYSTOCELE REPAIR 01/07/2024 CYSTOCELE REPAIR 01/07/2024 EGD N/A 11/05/2021 EGD W/O [facility] SPEC VARICIES INJ 04/29/2024 Normal FOOT SURGERY HX Left 1981 Arch reshaping HIP SURGERY HX 01/08/2022 torn labrum, reshaped femoral head LAPAROSCOPIC SALPING/OOPHORECTOMY Right 02/24/2019 Dr. Jasmin Sosa MASTECTOMY, SIMPLE, COMPLETE Bilateral 08/18/2017 Dr. Johnson (reconstruction), Dr. 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 Sosa-[facility] TOTAL ABD HYSTERECTOMY+BLAD REPR N/A 2020 left ovary removed; Dr. Sosa-[facility]- total hysterectomy with rectocele and bladder sling TOTAL KNEE REPLACEMENT Left 07/24/2023 ALLERGIES Penicillins and Nickel MEDICATIONS famotidine (PEPCID) 20 mg tablet Take 1 tablet by mouth two times a day as needed. IBSRELA 50 mg tablet take one tablet by mouth twice daily with meals omeprazole (PRILOSEC) 20 mg capsule TAKE 1 CAPSULE ONCE DAILY rosuvastatin (CRESTOR) 5 mg tablet Take 1 tablet by mouth daily at bedtime. venlafaxine ER (EFFEXOR XR) 37.5 mg 24 hr capsule TAKE 1 CAPSULE ONCE DAILY loratadine 10 mg cap Take by mouth. KRILL OIL ORAL Take 800 mg by mouth once daily. GEMTESA 75 mg tablet Take 75 mg by mouth once daily. COMPRESSION SLEEVE as directed. Breast cancer. 20-30 mmHg mecobalamin (B12 ACTIVE ORAL) Take 1 tablet by mouth once daily. CALCIUM CARBONATE/VITAMIN D3 (VITAMIN D-3 ORAL) Take by mouth twice daily. FAMILY HISTORY Problem Relation Age of Onset Cancer Mother melanoma Hypertension Mother Lipids Mother Breast Cancer Mother 63 lumpectomy, radiation, anastrozole x 5 years Diabetes Mother Skin Cancer Mother basel cell Arthritis Father Lipids Father High Triglycerides Heart Father ICD/pacer, CHF/s/p VT (cause of ) Diabetes Father Osteoporosis Sister Diabetes Sister Lipids Sister Osteoporosis Sister other (hydrocephalus) Sister other (spina bifida) Sister Hypertension Brother Osteoporosis Maternal Grandmother Colon Cancer Paternal Grandmother Cancer Paternal Grandfather HCC-EtOH abuse No Known Problems Daughter other (POTS) Daughter 28 other (PCOS) Daughter 25 Heart Maternal Uncle enlarged heart: cardiomyopathy other (ETOH) Paternal Uncle liver, cause of Breast Cancer Maternal cousin 49 Social History Tobacco Use Smoking status: Never Smokeless tobacco: Never Vaping Use Vaping status: Never Used Substance Use Topics Alcohol use: No Drug use: No Review of Systems Constitutional: Positive for chills, fatigue and fever. HENT: Positive for congestion. Negative for ear pain and sore throat. Respiratory: Positive for cough. Negative for shortness of breath. Cardiovascular: Negative for chest pain. Gastrointestinal: Negative for diarrhea and vomiting. Musculoskeletal: Positive for myalgias. Neurological: Positive for headaches. Objective BP 110/62 Pulse 90 Temp 37.3 ?C (99.1 ?F) Resp 18 Wt 62.2 kg (137 lb 2 oz) LMP 06/08/2020 (Approximate) SpO2 94% BMI 23.35 kg/m? Physical Exam Vitals reviewed. Constitutional: General: She is not in acute distress. Appearance: Normal appearance. She is not toxic-appearing. HENT: Right Ear: Tympanic membrane and ear canal normal. Left Ear: Tympanic membrane and ear canal norm (more content not included)... [facility] 09-12-2024 History of Presen t illness Narrative This note was created using NoteWriter. Subjective Greyson Rojas is a 54 year old female. HPI 54-year-old female presents for cough, body aches, chills, congestion, fever x 2 days. Patient states Thursday evening started getting sick with a cough. Yesterday she had fever, congestion chills and bodyaches. Tmax 99.6 F. She denies any vomiting or diarrhea. 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 No history of COPD or asthma. No chest pain or shortness of breath. No other complaint. PAST MEDICAL HISTORY Diagnosis Date Anemia, unspecified iron deficiency Breast cancer (HCC) 08/2017 Breast mass 06/2017 right breast Diffuse cystic mastopathy Helicobacter pylori infection Hiatal hernia History of prolapse of bladder Major depressive disorder, single episode, unspecified 1999 depressed year after 3rd child: treated for 1 year with Zoloft Meniere disease Dr. Marie ENT Panic disorder without agoraphobia periodic symptoms Use of tamoxifen (Nolvadex) 03/27/2023 PAST SURGICAL HISTORY Procedure Laterality Date BREAST RECONSTRUCTION implants removed and replaced BX BREAST W/DEVICE 1ST LESION ULTRASOUND GUID Right 06/12/2017 3 nodules; 5cm, 3cm, 3cm COLONOSCOPY 03/16/2023 COLONOSCOPY FLX DX W/COLLJ SPEC WHEN PFRMD 03/01/2018 Colonoscopy CYSTOCELE REPAIR 01/07/2024 CYSTOCELE REPAIR 01/07/2024 EGD N/A 11/05/2021 EGD W/O [facility] SPEC VARICIES INJ 04/29/2024 Normal FOOT SURGERY HX Left 1981 Arch reshaping HIP SURGERY HX 01/08/2022 torn labrum, reshaped femoral head LAPAROSCOPIC SALPING/OOPHORECTOMY Right 02/24/2019 Dr. Jasmin Sosa MASTECTOMY, SIMPLE, COMPLETE Bilateral 08/18/2017 Dr. Johnson (reconstruction), Dr. 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 Sosa-[facility] TOTAL ABD HYSTERECTOMY+BLAD REPR N/A 2020 left ovary removed; Dr. Sosa-[facility]- total hysterectomy with rectocele and bladder sling TOTAL KNEE REPLACEMENT Left 07/24/2023 ALLERGIES Penicillins and Nickel MEDICATIONS famotidine (PEPCID) 20 mg tablet Take 1 tablet by mouth two times a day as needed. IBSRELA 50 mg tablet take one tablet by mouth twice daily with meals omeprazole (PRILOSEC) 20 mg capsule TAKE 1 CAPSULE ONCE DAILY rosuvastatin (CRESTOR) 5 mg tablet Take 1 tablet by mouth daily at bedtime. venlafaxine ER (EFFEXOR XR) 37.5 mg 24 hr capsule TAKE 1 CAPSULE ONCE DAILY loratadine 10 mg cap Take by mouth. KRILL OIL ORAL Take 800 mg by mouth once daily. GEMTESA 75 mg tablet Take 75 mg by mouth once daily. COMPRESSION SLEEVE as directed. Breast cancer. 20-30 mmHg mecobalamin (B12 ACTIVE ORAL) Take 1 tablet by mouth once daily. CALCIUM CARBONATE/VITAMIN D3 (VITAMIN D-3 ORAL) Take by mouth twice daily. FAMILY HISTORY Problem Relation Age of Onset Cancer Mother melanoma Hypertension Mother Lipids Mother Breast Cancer Mother 63 lumpectomy, radiation, anastrozole x 5 years Diabetes Mother Skin Cancer Mother basel cell Arthritis Father Lipids Father High Triglycerides Heart Father ICD/pacer, CHF/s/p VT (cause of ) Diabetes Father Osteoporosis Sister Diabetes Sister Lipids Sister Osteoporosis Sister other (hydrocephalus) Sister other (spina bifida) Sister Hypertension Brother Osteoporosis Maternal Grandmother Colon Cancer Paternal Grandmother Cancer Paternal Grandfather HCC-EtOH abuse No Known Problems Daughter other (POTS) Daughter 28 other (PCOS) Daughter 25 Heart Maternal Uncle enlarged heart: cardiomyopathy other (ETOH) Paternal Uncle liver, cause of Breast Cancer Maternal cousin 49 Social History Tobacco Use Smoking status: Never Smokeless tobacco: Never Vaping Use Vaping status: Never Used Substance Use Topics Alcohol use: No Drug use: No Review of Systems Constitutional: Positive for chills, fatigue and fever. HENT: Positive for congestion. Negative for ear pain and sore throat. Respiratory: Positive for cough. Negative for shortness of breath. Cardiovascular: Negative for chest pain. Gastrointestinal: Negative for diarrhea and vomiting. Musculoskeletal: Positive for myalgias. Neurological: Positive for headaches. Objective BP 110/62 Pulse 90 Temp 37.3 C (99.1 F) Resp 18 Wt 62.2 kg (137 lb 2 oz) LMP 06/08/2020 (Approximate) SpO2 94% BMI 23.35 kg/m Physical Exam Vitals reviewed. Constitutional: General: She is not in acute distress. Appearance: Normal appearance. She is not toxic-appearing. HENT: Right Ear: Tympanic membrane and ear canal normal. Left Ear: Tympanic membrane and ear canal normal. Nose: Nose normal. Mouth/Throat: Mouth: Mucous membranes are moist. Pharynx: Oropharynx is clear. Eyes: Conjunctiva/sclera: Conjunctivae normal. Cardiovascular: Rate and Rhythm: Normal rate and regular rhythm. Pulmonary: Effort: Pulmonary effort is normal. Breath sounds: Normal breath sounds. No wheezing, rhonchi or rales. Skin: General: Skin is warm and dry. Neurological: Mental Status: She is alert. Assessment and Plan ASSESSMENT/PLAN: 1. Flu-like symptoms - ICD9: 780.99, ICD10: R68.89 - INFLUENZA A&B MOLECULAR (POC)-negative -Suspect other viral illness. COVID swab pending. Discussed supportive treatment if COVID-positive. - COVID & INFLUENZA A/B & RSV PCR, ROUTINE Diagnosis and treatment plan were discussed and questions were answered to the patient's satisfaction. Pt acknowledged understanding of concepts and follow up plan. Specific signs and symptoms that would indicate the need for higher level of care were discussed in detail warranting prompt ER evaluation. LISSA Peña documented in this encounter [facility] 08-26-2024 Note HNO ID: [id number] Author: JASON HESTER MD Service: ? Author Type: Physician Type: Progress Notes Filed: 08/26/2024 14:05 Note Text: Rev'd [facility] 08-26-2024 History of Presen t illness Narrative Rev'd documented in this encounter [facility] 08-26-2024 Note HNO ID: [id number] Author: ADDIS DAO MA Service: ? Author Type: Silo Painter Type: Progress Notes Filed: 08/26/2024 13:56 Note Text: FRUCTOSE Hydrogen Breath Test August 26, 2024 Referring Physician: Ceci Luna PA-C Indication IBS Prep: 4 weeks followin hour before: No Smoking Day of test - No gum chewing Baseline Hydrogen: 1 Methane: 4Addis MA Time given: 0:55am 25 grams / 25 grams Clock time start: 111am 20 minutes Hydrogen: 3 Methane: 6 Addis Restifo, [place] 40 minutes Hydrogen: 5 Methane: 5 Addis Restifo, [place] 1 hour Hydrogen: 5 Methane: 3 Addis Restifo, [place] 1 hour, 20 minutes Hydrogen: 5 Methane: 7 Addis Restifo, MA 1 hour, 40 minutes Hydrogen: 6 Methane: 7 Addis Restifo, [place] Symptoms developed during the study: None Patient Results Preliminary Test Results (not given to patient): pending Addis Dao MA Patient must be = Hydrogen >20 in order to be positive for Fructose Intolerance [facility] 08-26-2024 History of Presen t illness Narrative FRUCTOSE Hydrogen Breath Test August 26, 2024 Referring Physician: Ceci Luna PA-C Indication IBS Prep: 4 weeks followin hour before: No Smoking Day of test - No gum chewing Baseline Hydrogen: 1 Methane: 4, Addis eMghao MA Time given: 0:55am 25 grams / 25 grams Clock time start: 111am 20 minutes Hydrogen: 3 Methane: 6 Addis Restifo, MA 40 minutes Hydrogen: 5 Methane: 5 Addis Restifo, [place] 1 hour Hydrogen: 5 Methane: 3 Addis Restifo, MA 1 hour, 20 minutes Hydrogen: 5 Methane: 7 Addis Restifo, MA 1 hour, 40 minutes Hydrogen: 6 Methane: 7 Addis Restifo, [place] Symptoms developed during the study: None Patient Results Preliminary Test Results (not given to patient): pending Addis Dao MA Patient must be = Hydrogen >20 in order to be positive for Fructose Intolerance documented in this encounter [facility] 08-17-2024 Telephone encounter Note Calling pt to make sure all PPI's have been stopped prior to breath test on 08/26/24. No answer, LVM. Addis Dao MA [facility] 08-17-2024 Miscellaneous Notes Calling pt to make sure all PPI's have been stopped prior to breath test on 08/26/24. No answer, LVM. Addis Dao MA documented in this encounter [facility] 08-11-2024 Telephone encounter Note MC sent to patient. [facility] 08-11-2024 Miscellaneous Notes MC sent to patient. Breath Test is scanned into epic documented in this encounter [facility] 08-11-2024 Telephone encounter Note Breath Test is scanned into epic [facility] 08-05-2024 History of Presen t illness Narrative Radiology Service Progress Note PATIENT NAME: Gryeson Rojas DATE OF SERVICE: August 05, 2024 TIME: 2:12 PM PATIENT IDENTITY VERIFICATION COMPLETED USING TWO (2) IDENTIFIERS: Name and Date of confirmed by patient verbally. FALL SCREENING: Has the patient had 2 falls in the last year or 1 fall with injury or currently using an Ambulatory Assistive Device (Walker, Cane, Wheelchair, Crutches, etc.)? No PATIENT GENDER DATA: Female. status: : No status: NO. PATIENT RELEVANT IMPLANT DATA REVIEWED: Not Applicable PATIENT PRESENTS WITH AN IMPLANTABLE OR ATTACHED HEARING AID SPECIALIST: No RADIOLOGY DEPARTMENT: General X-ray: Exam(s) Completed: Abdomen X-Ray: Abdomen with Upright PERIPHERAL IV DATA: Not applicable SIGNED BY: RT Felipa(R) August 05, 2024 2:12 PM documented in this encounter [facility] 08-05-2024 Note HNO ID: [id number] Author: ALINE JOY RT(R) Service: Radiology Author Type: Technologist Type: Progress Notes Filed: 08/05/2024 14:28 Note Text: Radiology Service Progress Note PATIENT NAME: Greyson Rojas DATE OF SERVICE: August 05, 2024 TIME: 2:12 PM PATIENT IDENTITY VERIFICATION COMPLETED USING TWO (2) IDENTIFIERS: Name and Date of confirmed by patient verbally. FALL SCREENING: Has the patient had 2 falls in the last year or 1 fall with injury or currently using an Ambulatory Assistive Device (Walker, Cane, Wheelchair, Crutches, etc.)? No PATIENT GENDER DATA: Female. status: : No status: NO. PATIENT RELEVANT IMPLANT DATA REVIEWED: Not Applicable PATIENT PRESENTS WITH AN IMPLANTABLE OR ATTACHED HEARING AID SPECIALIST: No RADIOLOGY DEPARTMENT: General X-ray: Exam(s) Completed: Abdomen X-Ray: Abdomen with Upright PERIPHERAL IV DATA: Not applicable SIGNED BY: RT Felipa(R) August 05, 2024 2:12 PM [facility] 08-01-2024 Note HNO ID: [id number] Author: CECI LUNA PA-C Service: ? Author Type: Physician Personnel Associate Type: Progress Notes Filed: 08/01/2024 10:42 Note Text: CHIEF COMPLAINT: Patient presents with: Recheck: GERD, non-celiac gluten sensitivity HPI Greyson Rojas is a 54 year old female here today for Recheck (GERD, non-celiac gluten sensitivity) Patient tells me that she is uncertain if the IBSRELA is working. Notes that she will have diarrhea several times after taking it but doesn't necessarily feel like she is fully emptying. Still dealing with bloating and gas. Wondering if she has a fructose intolerance. Does note certain foods such certain fruits, starches cause worsening symptoms. Last OV with me 02/01/2024: Assessment/Plan (K58.1) Irritable bowel syndrome with constipation (primary encounter diagnosis) (K21.9) Gastroesophageal reflux disease, unspecified whether esophagitis present (K90.41) NCGS (non-celiac gluten sensitivity) 1. Irritable bowel syndrome with constipation -- Doing well on IBSRELA and stool softeners. Does not need refills today. 2. Gastroesophageal reflux disease, unspecified whether esophagitis present -- Notes chronic cough, was told by Pulmonology that it was GERD related. -- Continue on Omeprazole 20 mg. Okay to use Pepcid up to 40 mg PRN Recommend high protein, high fiber diet. Promotion of salivation through oral lozenges/chewing gum Drink plenty of water Avoid NSAIDs (such as Advil, Ibuprofen, Excedrin, Mobic), tobacco, alcohol, carbonated beverages, caffeine, chocolate, tomato based sauces, spicy/fatty foods, and peppermint Avoid eating less than 3 hours before bed. Elevate the head of the bed 6 inches, or invest in a wedge pillow. Laying on left side with head elevated may help alleviate reflux symptoms. - EGD DIAGNOSTIC; Future 3. NCGS (non-celiac gluten sensitivity) -- Seeing some improvement with a low gluten diet. -- EGD for further evaluation - EGD DIAGNOSTIC; Future Follow up in office 6 months/PRN. Current Outpatient Medications Medication Sig famotidine (PEPCID) 20 mg tablet Take 1 tablet by mouth two times a day as needed. IBSRELA 50 mg tablet take one tablet by mouth twice daily with meals omeprazole (PRILOSEC) 20 mg capsule TAKE 1 CAPSULE ONCE DAILY rosuvastatin (CRESTOR) 5 mg tablet Take 1 tablet by mouth daily at bedtime. venlafaxine ER (EFFEXOR XR) 37.5 mg 24 hr capsule TAKE 1 CAPSULE ONCE DAILY loratadine 10 mg cap Take by mouth. KRILL OIL ORAL Take 800 mg by mouth once daily. GEMTESA 75 mg tablet Take 75 mg by mouth once daily. COMPRESSION SLEEVE as directed. Breast cancer. 20-30 mmHg mecobalamin (B12 ACTIVE ORAL) Take 1 tablet by mouth once daily. CALCIUM CARBONATE/VITAMIN D3 (VITAMIN D-3 ORAL) Take by mouth twice daily. No current facility-administered medications for this visit. ALLERGIES Allergen Reactions Penicillins Hives Other reaction(s): hives all over body Nickel Rash Social History Tobacco Use Smoking status: Never Smokeless tobacco: Never Vaping Use Vaping status: Never Used Substance Use Topics Alcohol use: No Drug use: No PAST MEDICAL HISTORY Diagnosis Date Anemia, unspecified iron deficiency Breast cancer (HCC) 08/2017 Breast mass 06/2017 right breast Diffuse cystic mastopathy Helicobacter pylori infection Hiatal hernia History of prolapse of bladder Major depressive disorder, single episode, unspecified 1999 depressed year after 3rd child: treated for 1 year with Zoloft Meniere disease Dr. Marie ENT Panic disorder without agoraphobia periodic symptoms Use of tamoxifen (Nolvadex) 03/27/2023 PAST SURGICAL HISTORY Procedure Laterality Date BREAST RECONSTRUCTION implants removed and replaced BX BREAST W/DEVICE 1ST LESION ULTRASOUND GUID Right 06/12/2017 3 nodules; 5cm, 3cm, 3cm COLONOSCOPY 03/16/2023 COLONOSCOPY FLX DX W/COLLJ SPEC WHEN PFRMD 03/01/2018 Colonoscopy CYSTOCELE REPAIR 01/07/2024 CYSTOCELE REPAIR 01/07/2024 EGD N/A 11/05/2021 EGD W/O [facility] SPEC VARICIES INJ 04/29/2024 FOOT SURGERY HX Left 1981 Arch reshaping HIP SURGERY HX 01/08/2022 torn labrum, reshaped femoral head LAPAROSCOPIC SALPING/OOPHORECTOMY Right 02/24/2019 Dr. Jasmin Sosa MASTECTOMY, SIMPLE, COMPLETE Bilateral 08/18/2017 Dr. Johnson (reconstruction), Dr. 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 Sosa-[facility] TOTAL ABD HYSTERECTOMY+BLAD REPR N/A 2020 left ovary removed; Dr. Sosa-[facility]- total hysterectomy with rectocele and bladder sling TOTAL KNEE REPLACEMENT Left 07/24/2023 FAMILY HISTORY Problem Relation Age of Onset Cancer Mother melanoma Hypertension Mother Lipids Mother Breast Cancer Mother 63 lumpectomy, radiation, anas (more content not included)... [facility] 08-01-2024 History of Presen t illness Narrative CHIEF COMPLAINT: Patient presents with: Recheck: GERD, non-celiac gluten sensitivity HPI Greyson Rojas is a 54 year old female here today for Recheck (GERD, non-celiac gluten sensitivity) Patient tells me that she is uncertain if the IBSRELA is working. Notes that she will have diarrhea several times after taking it but doesn't necessarily feel like she is fully emptying. Still dealing with bloating and gas. Wondering if she has a fructose intolerance. Does note certain foods such certain fruits, starches cause worsening symptoms. Last OV with me 02/01/2024: Assessment/Plan (K58.1) Irritable bowel syndrome with constipation (primary encounter diagnosis) (K21.9) Gastroesophageal reflux disease, unspecified whether esophagitis present (K90.41) NCGS (non-celiac gluten sensitivity) 1. Irritable bowel syndrome with constipation -- Doing well on IBSRELA and stool softeners. Does not need refills today. 2. Gastroesophageal reflux disease, unspecified whether esophagitis present -- Notes chronic cough, was told by Pulmonology that it was GERD related. -- Continue on Omeprazole 20 mg. Okay to use Pepcid up to 40 mg PRN Recommend high protein, high fiber diet. Promotion of salivation through oral lozenges/chewing gum Drink plenty of water Avoid NSAIDs (such as Advil, Ibuprofen, Excedrin, Mobic), tobacco, alcohol, carbonated beverages, caffeine, chocolate, tomato based sauces, spicy/fatty foods, and peppermint Avoid eating less than 3 hours before bed. Elevate the head of the bed 6 inches, or invest in a wedge pillow. Laying on left side with head elevated may help alleviate reflux symptoms. - EGD DIAGNOSTIC; Future 3. NCGS (non-celiac gluten sensitivity) -- Seeing some improvement with a low gluten diet. -- EGD for further evaluation - EGD DIAGNOSTIC; Future Follow up in office 6 months/PRN. Current Outpatient Medications Medication Sig famotidine (PEPCID) 20 mg tablet Take 1 tablet by mouth two times a day as needed. IBSRELA 50 mg tablet take one tablet by mouth twice daily with meals omeprazole (PRILOSEC) 20 mg capsule TAKE 1 CAPSULE ONCE DAILY rosuvastatin (CRESTOR) 5 mg tablet Take 1 tablet by mouth daily at bedtime. venlafaxine ER (EFFEXOR XR) 37.5 mg 24 hr capsule TAKE 1 CAPSULE ONCE DAILY loratadine 10 mg cap Take by mouth. KRILL OIL ORAL Take 800 mg by mouth once daily. GEMTESA 75 mg tablet Take 75 mg by mouth once daily. COMPRESSION SLEEVE as directed. Breast cancer. 20-30 mmHg mecobalamin (B12 ACTIVE ORAL) Take 1 tablet by mouth once daily. CALCIUM CARBONATE/VITAMIN D3 (VITAMIN D-3 ORAL) Take by mouth twice daily. No current facility-administered medications for this visit. ALLERGIES Allergen Reactions Penicillins Hives Other reaction(s): hives all over body Nickel Rash Social History Tobacco Use Smoking status: Never Smokeless tobacco: Never Vaping Use Vaping status: Never Used Substance Use Topics Alcohol use: No Drug use: No PAST MEDICAL HISTORY Diagnosis Date Anemia, unspecified iron deficiency Breast cancer (HCC) 08/2017 Breast mass 06/2017 right breast Diffuse cystic mastopathy Helicobacter pylori infection Hiatal hernia History of prolapse of bladder Major depressive disorder, single episode, unspecified 1999 depressed year after 3rd child: treated for 1 year with Zoloft Meniere disease Dr. Marie ENT Panic disorder without agoraphobia periodic symptoms Use of tamoxifen (Nolvadex) 03/27/2023 PAST SURGICAL HISTORY Procedure Laterality Date BREAST RECONSTRUCTION implants removed and replaced BX BREAST W/DEVICE 1ST LESION ULTRASOUND GUID Right 06/12/2017 3 nodules; 5cm, 3cm, 3cm COLONOSCOPY 03/16/2023 COLONOSCOPY FLX DX W/COLLJ SPEC WHEN PFRMD 03/01/2018 Colonoscopy CYSTOCELE REPAIR 01/07/2024 CYSTOCELE REPAIR 01/07/2024 EGD N/A 11/05/2021 EGD W/O [facility] SPEC VARICIES INJ 04/29/2024 FOOT SURGERY HX Left 1982 Arch reshaping HIP SURGERY HX 01/08/2022 torn labrum, reshaped femoral head LAPAROSCOPIC SALPING/OOPHORECTOMY Right 02/24/2019 Dr. Jasmin Sosa MASTECTOMY, SIMPLE, COMPLETE Bilateral 08/18/2017 Dr. Johnson (reconstruction), Dr. 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 Sosa-[facility] TOTAL ABD HYSTERECTOMY+BLAD REPR N/A 2020 left ovary removed; Dr. Sosa-[facility]- total hysterectomy with rectocele and bladder sling TOTAL KNEE REPLACEMENT Left 07/24/2023 FAMILY HISTORY Problem Relation Age of Onset Cancer Mother melanoma Hypertension Mother Lipids Mother Breast Cancer Mother 63 lumpectomy, radiation, anastrozole x 5 years Diabetes Mother Skin Cancer Mother basel cell Arthritis Father Lipids Father High Triglycerides Heart Father ICD/pacer, CHF/s/p VT (cause of ) Diabetes Father Osteoporosis Sister Diabetes Sister Lipids Sister Osteoporosis Sister other (hydrocephalus) Sister other (spina bifida) Sister Hypertension Brother Osteoporosis Maternal Grandmother Colon Cancer Paternal Grandmother Cancer Paternal Grandfather HCC-EtOH abuse No Known Problems Daughter other (POTS) Daughter 28 other (PCOS) Daughter 25 Heart Maternal Uncle enlarged heart: cardiomyopathy other (ETOH) Paternal Uncle liver, cause of Breast Cancer Maternal cousin 49 REVIEW OF SYSTEMS Review of Systems Gastrointestinal: Positive for abdominal distention, abdominal pain and diarrhea. All other systems reviewed and are negative. PHYSICAL EXAM BP 104/70 Pulse 74 Ht 5' 4.25 (1.63m) Wt 138 lb 3.2 oz (62.7kg) LMP 06/08/2020 BMI 23.54 kg/(m^2). Physical Exam Constitutional: Appearance: Normal appearance. She is normal weight. HENT: Head: Normocephalic and atraumatic. Eyes: General: No scleral icterus. Extraocular Movements: Extraocular movements intact. Conjunctiva/sclera: Conjunctivae normal. Pupils: Pupils are equal, round, and reactive to light. Cardiovascular: Rate and Rhythm: Normal rate and regular rhythm. Pulses: Normal pulses. Heart sounds: Normal heart sounds. Pulmonary: Effort: Pulmonary effort is normal. Breath sounds: Normal breath sounds. Abdominal: General: Abdomen is flat. Bowel sounds are normal. Palpations: Abdomen is soft. Tenderness: There is abdominal tenderness (mild abdominal TTP). Musculoskeletal: General: Normal range of motion. Cervical back: Normal range of motion and neck supple. Skin: General: Skin is warm and dry. Coloration: Skin is not jaundiced. Neurological: General: No focal deficit present. Mental Status: She is alert and oriented to person, place, and time. Psychiatric: Mood and Affect: Mood normal. Behavior: Behavior normal. Thought Content: Thought content normal. Judgment: Judgment normal. Assessment/Plan (K21.9) Gastroesophageal reflux disease, unspecified whether esophagitis present (primary encounter diagnosis) (K58.1) Irritable bowel syndrome with constipation (K90.41) NCGS (non-celiac gluten sensitivity) (R14.0) Bloating 1. Gastroesophageal reflux disease, unspecified whether esophagitis present -- Patient doing well today on Omeprazole 20 mg and Pepcid. Refilled her Pepcid today. - famotidine (PEPCID) 20 mg tablet; Take 1 tablet by mouth two times a day as needed. Dispense: 120 tablet; Refill: 3 2. Irritable bowel syndrome with constipation -- Patient with ongoing bowel changes with bloating. Still taking the IBSRELA but uncertain if it is helping. -- Will get abdominal x-ray r/o stool burden -- Will get Fructose testing -- CSID box given today as well - BREATH TEST FRUCTOSE; Future - XR ABDOMEN 2V ROUTINE SUPINE W UPRIGHT/DECUB/CTL; Future 3. NCGS (non-celiac gluten sensitivity) -- Continue with watching gluten -- Will get Fructose testing -- CSID box given today as well - BREATH TEST FRUCTOSE; Future 4. Bloating -- Continue with watching gluten -- Will get Fructose testing -- CSID box given today as well - BREATH TEST FRUCTOSE; Future Follow up in office 6 months/PRN. Recommended to please call office/go to ER if fever, chills, chest pain, SOB, diarrhea, nausea, emesis, worsening abdominal pain, dehydration occurs I spent a total of 25 minutes on the date of the service which included preparing to see the patient, [id number] patient care, completing clinical documentation, obtaining and/or reviewing separately obtained history, performing a medically appropriate examination, counseling and educating the patient/family/caregiver, and ordering medications, tests, or procedures. Ceci Luna PA-C August 01, 2024 10:28 AM documented in this encounter [facility] 07-04-2024 Instructions Yovani Donohue MD - 07/04/2024 9:40 AM EST I did not see any facial twitching today. Please try making videos of this if you can. When you return I plan to re-examine you for the slight slowness of motion. We also spoke about aerobic exercise. documented in this encounter [facility] 07-04-2024 Note HNO ID: [id number] Author: YOVANI DONOHUE MD Service: ? Author Type: Physician Type: Progress Notes Filed: 07/04/2024 18:50 Note Text: [facility] - NEW PATIENT EVALUATION Referring Provider: Elias Hernandez [id number] [facility] [address] Primary Care Provider: Gallo Sanches DO [address] [facility] [id number] Dear Elias Hernandez: Thank you for referring Ms. Rojas to our clinic today. As you know she is a 54 year old right-handed female who is seen in consultation for evaluation of Facial twitching since 2022. She is seen alone. 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 She is here for evaluation of left-sided facial twitching. She tells me she has a history of breast cancer 2018 and had double mastectomy followed by hysterectomy 3 years ago. She tells me that she has had twitching of both eyelids that was on and off but has noticed twitching of the left side of the face, including holding of the left cheek and the upper lip that has been happening intermittently. When she made the first appointment, it was happening more often but then it started getting better and she rescheduled. She has cut down on her caffeine. She reports this twitching movement happening about once a week and every time it lasts for less than 5 minutes. She is not sure if she can videotape it for the last Solus. When it does happen it causes her to be bothered by it. Additionally, she says she has noticed some right hand shakiness that comes and goes for the last 1 year. This happens about once a month and the hand is at rest. There is no change in the size of her handwriting. Her sense of smell is gone since she has had severe COVID twice. She has had left knee replacement surgery and feels she may have slowed down a little bit but it is because of the left knee rather than something else. She does not shuffle or fall. She talks in her sleep but does not act out her dreams. He denies constipation. She denies alcohol, smoking or recreational drugs. Father had diabetes and congestive heart failure. Her mother had diabetes. 2 siblings have high blood pressure and 1 sibling has diabetes. She has 3 children who are healthy. Movement Disorders Medications Schedule - as of the start of the visit: Medications Questionnaires Review of Systems ALLERGIES Allergen Reactions Penicillins Hives Other reaction(s): hives all over body Nickel Rash Current Outpatient Medications Medication Sig famotidine (PEPCID) 20 mg tablet Take 1 tablet by mouth two times a day as needed. IBSRELA 50 mg tablet take one tablet by mouth twice daily with meals omeprazole (PRILOSEC) 20 mg capsule TAKE 1 CAPSULE ONCE DAILY rosuvastatin (CRESTOR) 5 mg tablet Take 1 tablet by mouth daily at bedtime. venlafaxine ER (EFFEXOR XR) 37.5 mg 24 hr capsule TAKE 1 CAPSULE ONCE DAILY loratadine 10 mg cap Take by mouth. KRILL OIL ORAL Take 800 mg by mouth once daily. GEMTESA 75 mg tablet Take 75 mg by mouth once daily. COMPRESSION SLEEVE as directed. Breast cancer. 20-30 mmHg mecobalamin (B12 ACTIVE ORAL) Take 1 tablet by mouth once daily. CALCIUM CARBONATE/VITAMIN D3 (VITAMIN D-3 ORAL) Take by mouth twice daily. No current facility-administered medications for this visit. Past Medical and Surgical History: has a past medical history of Anemia, unspecified, Breast cancer (HCC) (08/2017), Breast mass (06/2017), Diffuse cystic mastopathy, Helicobacter pylori infection, Hiatal hernia, History of prolapse of bladder, Major depressive disorder, single episode, unspecified (1999), Meniere disease, Panic disorder without agoraphobia, and Use of tamoxifen (Nolvadex) (03/27/2023). has a past surgical history that includes past surgical history of (1994); bx breast w/device 1st lesion ultrasound guid (Right, 06/12/2017); mastectomy, simple, complete (Bilateral, 08/18/2017); colonoscopy flx dx w/collj spec when pfrmd (03/01/2018); past surgical history of (07/2018); laparoscopic salping/oophorectomy (Right, 02/24/2019); salpingo-oophorectomy (Left, 10/19/2020); foot surgery hx (Left, 1981); total abd hysterectomy+blad repr (N/A, 2020); egd (N/A, 11/05/2021); breast reconstruction; hip surgery hx (01/08/2022); revision breast reconstruction (01/2023); colonoscopy (03/16/2023); total knee replacement (Left, 07/24/2023); cystocele repair (01/07/2024); and cystocele repair (01/07/2024). Social History Tobacco Use Smoking status: Never Smokeless tobacco: Never Vaping Use Vaping status: Never Used Substance Use Topics Alcohol use: No Drug use: No Family History: family history includes Arthritis in her father; Breast Cancer (age of onset: 49) in her maternal cousin; Breast Cancer (age of onset: 63) in her mother; Cancer in her mother and paternal grandfather; Colon Cancer in her pater (more content not included)... [facility] 07-04-2024 History of Presen t illness Narrative [facility] - NEW PATIENT EVALUATION Referring Provider: Elias Hernandez [id number] [facility] [address] Primary Care Provider: Gallo Sanches DO [address] [facility] [address] Dear Elias Hernandez: Thank you for referring Ms. Rojas to our clinic today. As you know she is a 54 year old right-handed female who is seen in consultation for evaluation of Facial twitching since 2022. She is seen alone. 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 She is here for evaluation of left-sided facial twitching. She tells me she has a history of breast cancer 2018 and had double mastectomy followed by hysterectomy 3 years ago. She tells me that she has had twitching of both eyelids that was on and off but has noticed twitching of the left side of the face, including holding of the left cheek and the upper lip that has been happening intermittently. When she made the first appointment, it was happening more often but then it started getting better and she rescheduled. She has cut down on her caffeine. She reports this twitching movement happening about once a week and every time it lasts for less than 5 minutes. She is not sure if she can videotape it for the last Solus. When it does happen it causes her to be bothered by it. Additionally, she says she has noticed some right hand shakiness that comes and goes for the last 1 year. This happens about once a month and the hand is at rest. There is no change in the size of her handwriting. Her sense of smell is gone since she has had severe COVID twice. She has had left knee replacement surgery and feels she may have slowed down a little bit but it is because of the left knee rather than something else. She does not shuffle or fall. She talks in her sleep but does not act out her dreams. He denies constipation. She denies alcohol, smoking or recreational drugs. Father had diabetes and congestive heart failure. Her mother had diabetes. 2 siblings have high blood pressure and 1 sibling has diabetes. She has 3 children who are healthy. Movement Disorders Medications Schedule - as of the start of the visit: Medications Questionnaires Review of Systems ALLERGIES Allergen Reactions Penicillins Hives Other reaction(s): hives all over body Nickel Rash Current Outpatient Medications Medication Sig famotidine (PEPCID) 20 mg tablet Take 1 tablet by mouth two times a day as needed. IBSRELA 50 mg tablet take one tablet by mouth twice daily with meals omeprazole (PRILOSEC) 20 mg capsule TAKE 1 CAPSULE ONCE DAILY rosuvastatin (CRESTOR) 5 mg tablet Take 1 tablet by mouth daily at bedtime. venlafaxine ER (EFFEXOR XR) 37.5 mg 24 hr capsule TAKE 1 CAPSULE ONCE DAILY loratadine 10 mg cap Take by mouth. KRILL OIL ORAL Take 800 mg by mouth once daily. GEMTESA 75 mg tablet Take 75 mg by mouth once daily. COMPRESSION SLEEVE as directed. Breast cancer. 20-30 mmHg mecobalamin (B12 ACTIVE ORAL) Take 1 tablet by mouth once daily. CALCIUM CARBONATE/VITAMIN D3 (VITAMIN D-3 ORAL) Take by mouth twice daily. No current facility-administered medications for this visit. Past Medical and Surgical History: has a past medical history of Anemia, unspecified, Breast cancer (HCC) (08/2017), Breast mass (06/2017), Diffuse cystic mastopathy, Helicobacter pylori infection, Hiatal hernia, History of prolapse of bladder, Major depressive disorder, single episode, unspecified (1999), Meniere disease, Panic disorder without agoraphobia, and Use of tamoxifen (Nolvadex) (03/27/2023). has a past surgical history that includes past surgical history of (1994); bx breast w/device 1st lesion ultrasound guid (Right, 06/12/2017); mastectomy, simple, complete (Bilateral, 08/18/2017); colonoscopy flx dx w/collj spec when pfrmd (03/01/2018); past surgical history of (07/2018); laparoscopic salping/oophorectomy (Right, 02/24/2019); salpingo-oophorectomy (Left, 10/19/2020); foot surgery hx (Left, 1981); total abd hysterectomy+blad repr (N/A, 2020); egd (N/A, 11/05/2021); breast reconstruction; hip surgery hx (01/08/2022); revision breast reconstruction (01/2023); colonoscopy (03/16/2023); total knee replacement (Left, 07/24/2023); cystocele repair (01/07/2024); and cystocele repair (01/07/2024). Social History Tobacco Use Smoking status: Never Smokeless tobacco: Never Vaping Use Vaping status: Never Used Substance Use Topics Alcohol use: No Drug use: No Family History: family history includes Arthritis in her father; Breast Cancer (age of onset: 49) in her maternal cousin; Breast Cancer (age of onset: 63) in her mother; Cancer in her mother and paternal grandfather; Colon Cancer in her paternal grandmother; Diabetes in her father, mother, and sister; ETOH in her paternal uncle; Heart in her father and maternal uncle; Hypertension in her brother and mother; Lipids in her father, mother, and sister; No Known Problems in her daughter; Osteoporosis in her maternal grandmother, sister, and sister; PCOS (age of onset: 25) in her daughter; POTS (age of onset: 28) in her daughter; Skin Cancer in her mother; hydrocephalus in her sister; spina bifida in her sister. Objective Vital Signs: BP 110/71 (BP Site: Right Arm, BP Position: Sitting, BP Cuff Size: Regular Adult) Pulse 74 Temp 36.2 C (97.2 F) (Temporal) Ht 163.2 cm (5' 4.25) Wt 63.3 kg (139 lb 7.1 oz) LMP 06/08/2020 (Approximate) BMI 23.75 kg/m Orthostatic Vitals: None for this encounter Patient's last menstrual period was 06/08/2020 (approximate). Body mass index is 23.75 kg/m . General Physical Examination: She is alone. General: Awake, alert, interactive, no acute distress, good nutritional status, normal development, well-kept General Neurological Examination: Neurological Exam Mental Status Awake, alert and oriented to person, place and time. Oriented to person, place and time. Speech is normal. Language is fluent with no aphasia. Attention and concentration are normal. Fund of knowledge is appropriate for level of education. Cranial Nerves CN II: Visual villeda full to confrontation. CN III, IV, : Extraocular movements intact bilaterally. Right pupil: 3 mm. Round. Reactive to light. Left pupil: 3 mm. Round. Reactive to light. CN VII: Full and symmetric facial movement. CN VIII: Hearing is normal. CN IX, X: Palate elevates symmetrically CN XI: Shoulder shrug strength is normal. CN XII: Tongue midline without atrophy or fasciculations. Motor Normal muscle bulk throughout. No fasciculations present. Normal muscle tone. The following abnormal movements were seen: Mildly reduced finger tapping in the right more than left upper extremity. Impaired toe tapping, more on the right.. Strength is 5/5 throughout all four extremities. Sensory Temperature is normal in upper and lower extremities. Reflexes Deep tendon reflexes are 2+ and symmetric except as noted. Coordination Right: Obilvg-ct-gocl normal.Left: Ayhffw-ju-wrcd normal. Gait Casual gait: Normal stance. Normal stride length. Normal gait. Reduced right arm swing. Normal left arm swing.Normal toe walking. Normal heel walking. Normal tandem gait. Romberg is absent. Normal pull test. Able to rise from chair without using arms. Movement Disorders Scales Performed: MDS-UPDRS Motor subscale condition of exam Medication Off/On/Naiive Drug Naiive Time of UPDRS 0958 Time of Last Medication Last Medication Taken DBS Right N/A DBS Left N/A MDS-UPDRS Motor subscale scores Speech 0-Normal. No speech problems. Facial Expression 0-Normal. Normal facial expression. Rigidity Neck 0-Normal. No rigidity. Rigidity Right Upper Extremity 0-Normal. No rigidity. Rigidity Left Upper Extremity 0-Normal. No rigidity. Rigidity Right Lower Extremity 0-Normal. No rigidity. Rigidity Left Lower Extremity 0-Normal. No rigidity. Finger Taps Right 1-Slight. a) the regular rhythm is broken with one or two interruptions or hesitations of the tapping movement, b) slight slowing, c) the amplitude decrements near the end of the 10 taps. Finger Taps Left 0-Normal. No problems. Hand Movements Right 0-Normal. No problem. Hand Movements Left 0-Normal. No problem. Arm Movements Right 0-Normal. No problems. Arm Movements Left 0-Normal. No problems. Toe Taps Right 1-Slight. a) the regular rhythm is broken with one or two interruptions or hesitations of the tapping movement, b) slight slowing, c) the amplitude decrements near the end of the ten taps. Toe Taps Left 0-Normal. No problem. Leg Agility Right 0-Normal. No problems. Leg Agility Left 0-Normal. No problems. Arise From Chair 0-Normal. No problems. Able to arise quickly without hesitation. Gait 1-Slight. Independent walking with minor gait impairment. Gait Freezing 0-Normal. No freezing. Posture Stability 0-Normal. No problems: recovers with one or two steps. Posture 0-Normal. No problems. Body Bradykinesia 0-Normal. No problems. Postural Tremor Hand Right 0-Normal. No tremor. Postural Tremor Hand Left 0-Normal. No tremor. Kinetic Tremor Right 1-Slight. Tremor is present but less than 1cm in amplitude. Kinetic Tremor Left 1-Slight. Tremor is present but less than 1cm in amplitude. Rest Tremor Amplitude Right Upper Extremity 0-Normal. No tremor. Rest Tremor Amplitude Left Upper Extremity 0-Normal. No tremor. Rest Tremor Amplitude Right Lower Extremity 0-Normal. No tremor. Rest Tremor Amplitude Left Lower Extremity 0-Normal. No tremor. Rest Tremor Amplitude Lip/Jaw 0-Normal. No tremor. Rest Tremor Constancy 0-Normal. No tremor. MDS-UPDRS Motor subscale totals Left Total 1 Right Total 3 Midline Total 1 Tremor Total / 10 2 PIGD Total / 3 1 Overall Total 5 Change Better/Worse % Change Compared to Last Filed Total Assessment and Plan: Assessment Ms. 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 However, I did not support mild bradykinesia on the right upper extremity and I explained this to her. He spoke about parkinsonism, bradykinesia. We agreed to follow-up clinically in about 6 months. I requested her to try to make videos of the left facial twitching if it happens again. The following are the current problems noted and addressed during this visit: Facial twitching (primary encounter diagnosis) Bradykinesia Hyposmia Plan 07/04/2024 Visit: Possible left hemifacial spasm-there is a video evidence and return to clinic Mild right bradykinesia-reevaluate in 6 months Interested in clinical research? Not currently Updated Movement Disorders Medication Schedule: Medications Return at or around: 01/02/25 Level of service : 00256 (30-44 min). Time spent 34 min on the day of service, which included preparing to see the patient, [id number] patient care, completing clinical documentation, obtaining and/or reviewing separately obtained history, performing a medically appropriate examination, and counseling and educating the patient/family/caregiver. Thank you for allowing me to be part of the clinical care of this patient! I look forward to continued participation in the patient s care with you. Please do not hesitate to call with any questions. Sincerely, Yovani Donohue MD documented in this encounter [facility] 06-02-2024 Telephone encounter Note Replied to patient. Closed [facility] 06-02-2024 Miscellaneous Notes Replied to patient. Closed Patient notified that the DXA scan is still in process and will will be touch once we get the results. documented in this encounter [facility] 06-02-2024 Telephone encounter Note Patient notified that the DXA scan is still in process and will will be touch once we get the results. [facility] 05-30-2024 History of Presen t illness Narrative Radiology Service Progress Note PATIENT NAME: Greyson Rojas DATE OF SERVICE: May 30, 2024 TIME: 7:47 AM PATIENT IDENTITY VERIFICATION COMPLETED USING TWO (2) IDENTIFIERS: Name and Date of confirmed by patient verbally. FALL SCREENING: Has the patient had 2 falls in the last year or 1 fall with injury or currently using an Ambulatory Assistive Device (Walker, Cane, Wheelchair, Crutches, etc.)? No PATIENT GENDER DATA: Female. status: : No status: NO. PATIENT RELEVANT IMPLANT DATA REVIEWED: Not Applicable PATIENT PRESENTS WITH AN IMPLANTABLE OR ATTACHED HEARING AID SPECIALIST: No RADIOLOGY DEPARTMENT: Bone Density PERIPHERAL IV DATA: Not applicable SIGNED BY: JULIAN Flores) May 30, 2024 7:47 AM documented in this encounter [facility] 05-30-2024 Note HNO ID: [id number] Author: MAURY NARVAEZ RT (R) Service: ? Author Type: Technologist Type: Progress Notes Filed: 05/30/2024 08:06 Note Text: Radiology Service Progress Note PATIENT NAME: Greyson oRjas DATE OF SERVICE: May 30, 2024 TIME: 7:47 AM PATIENT IDENTITY VERIFICATION COMPLETED USING TWO (2) IDENTIFIERS: Name and Date of confirmed by patient verbally. FALL SCREENING: Has the patient had 2 falls in the last year or 1 fall with injury or currently using an Ambulatory Assistive Device (Walker, Cane, Wheelchair, Crutches, etc.)? No PATIENT GENDER DATA: Female. status: : No status: NO. PATIENT RELEVANT IMPLANT DATA REVIEWED: Not Applicable PATIENT PRESENTS WITH AN IMPLANTABLE OR ATTACHED HEARING AID SPECIALIST: No RADIOLOGY DEPARTMENT: Bone Density PERIPHERAL IV DATA: Not applicable SIGNED BY: Maury Narvaez RT(R) May 30, 2024 7:47 AM [facility] 05-10-2024 Telephone encounter Note MyChart message results. All labs look good, Mauricio Ram PA-C [facility] 05-10-2024 Miscellaneous Notes MyChart message results. All labs look good, Mauricio Ram PA-C documented in this encounter [facility] 05-09-2024 Telephone encounter Note Famotidine sent to pharmacy. [facility] 05-09-2024 Miscellaneous Notes Famotidine sent to pharmacy. documented in this encounter [facility] 04-29-2024 Nurse Note The patient is here for an injection of Prolia Dose: 60 mg Route: Subcutaneous Lot# [id number] Expiration date 09/30/26 [facility]: 96820-652-42 Given without incident. Site: left arm Marzena Cunha NP present in clinic at time of injection. The date due for the next injection is in 6 months, on or after 10/27/24. Last injection: 10/28/23 ZBIGNIEW:10/07/23 NOV: Will need 10/2024 Insurance: Primary= MMOO- No PA Required Labs: 11/26/23 Calcium 9.1, 03/09/23 Vitamin D 54.8 DX: M81.8 CPT: J0897 DXA: 04/28/22 TScore: -3.2 LS Patient education was given by nurse. Patient tolerated Injection well, in NAD and no reactions noted. Medication supplied by [facility] [employer] AND BILL. Adam Joy RN [facility] 04-29-2024 Nurse Note The patient is here for an injection of Prolia Dose: 60 mg Route: Subcutaneous Lot# [id number] Expiration date 09/30/26 [facility]: 58491-857-83 Given without incident. Site: left arm Marzena Cunha NP present in clinic at time of injection. The date due for the next injection is in 6 months, on or after 10/27/24. Last injection: 10/28/23 ZBIGNIEW:10/07/23 NOV: Will need 10/2024 Insurance: Primary= MMOO- No PA Required Labs: 11/26/23 Calcium 9.1, 03/09/23 Vitamin D 54.8 DX: M81.8 CPT: J0897 DXA: 04/28/22 TScore: -3.2 LS Patient education was given by nurse. Patient tolerated Injection well, in NAD and no reactions noted. Medication supplied by [facility] [employer] AND BILL. Adam Joy RN documented in this encounter [facility] 04-29-2024 Note HNO ID: [id number] Author: YUMI TOLEDO RN Service: ? Author Type: Registered Nurse Type: Nursing Progress Note Filed: 04/29/2024 08:54 Note Text: Pt states readiness for discharge. Assisted with dressing. [facility] 04-29-2024 Nurse Note Pt states readiness for discharge. Assisted with dressing. [facility] 04-29-2024 Nurse Note Pt states readiness for discharge. Assisted with dressing. Physician at bedside to discuss procedure/findngs with patient. documented in this encounter [facility] 04-29-2024 Note HNO ID: [id number] Author: YUMI TOLEDO RN Service: ? Author Type: Registered Nurse Type: Nursing Progress Note Filed: 04/29/2024 08:41 Note Text: Physician at bedside to discuss procedure/findngs with patient. [facility] 04-29-2024 Nurse Note Physician at bedside to discuss procedure/findngs with patient. [facility] 04-29-2024 Note Formatting of this n ote might be different from the original. The patient received a copy of EGD discharge instructions that contain information for how to contact the physician who performed the procedure and when to seek medical care. [facility] 04-29-2024 Miscellaneous Notes The patient received a copy of EGD discharge instructions that contain information for how to contact the physician who performed the procedure and when to seek medical care. documented in this encounter [facility] 04-29-2024 History and physical note Indication for procedure: heartburn, GERD, celiac genetics, bloating PROCEDURE(S) SCHEDULED FOR: Esophagogastroduodenoscopy (EGD) with or without biopsies and with or without removal of polyps or lesions, dilation (any means), treatment of bleeding (any means), based on clinical findings. Patient Summary: 54 yo F history of breast ca, GERD, positive celiac genetics with symptoms eating gluten Blood Thinners: none Medication Allergies Pertinent to Procedural Sedation: ALLERGIES Allergen Reactions Penicillins Hives Other reaction(s): hives all over body Nickel Rash All medications and allergies reviewed: Yes BASELINE BEHAVIOR: Calm BASELINE ORIENTATION: A & O Skin Assessment: Warm dry mucus membranes pink Airway/Respiratory Assessment: Airway: visualization of the uvula- Yes Mouth: opening greater than 2 fingerbreadths- Yes Neck: full range of motion- Yes Breath sounds clear/equal- Yes Cardiac Assessment: Regular rate and rhythm without murmur Abdominal Assessment: Abdomen soft, non-tender, non-distended. Sedation Plan: MAC Additional Comments: Duodenal biopsies for celiac disease Tika Correa MD [facility] Work Phone: 04-29-2024 History and physical note Indication for procedure: heartburn, GERD, celiac genetics, bloating PROCEDURE(S) SCHEDULED FOR: Esophagogastroduodenoscopy (EGD) with or without biopsies and with or without removal of polyps or lesions, dilation (any means), treatment of bleeding (any means), based on clinical findings. Patient Summary: 54 yo F history of breast ca, GERD, positive celiac genetics with symptoms eating gluten Blood Thinners: none Medication Allergies Pertinent to Procedural Sedation: ALLERGIES Allergen Reactions Penicillins Hives Other reaction(s): hives all over body Nickel Rash All medications and allergies reviewed: Yes BASELINE BEHAVIOR: Calm BASELINE ORIENTATION: A & O Skin Assessment: Warm dry mucus membranes pink Airway/Respiratory Assessment: Airway: visualization of the uvula- Yes Mouth: opening greater than 2 fingerbreadths- Yes Neck: full range of motion- Yes Breath sounds clear/equal- Yes Cardiac Assessment: Regular rate and rhythm without murmur Abdominal Assessment: Abdomen soft, non-tender, non-distended. Sedation Plan: MAC Additional Comments: Duodenal biopsies for celiac disease Tika Correa MD documented in this encounter [facility] 04-25-2024 Telephone encounter Note Order placed/ Thanks HH [facility] 04-25-2024 Miscellaneous Notes Order placed/ Thanks HH Patient is scheduled for a Prolia Injection on 04/29/24 at 1:[address] CAM order accordingly. Thank you. documented in this encounter [facility] 04-22-2024 Telephone encounter Note Patient is scheduled for a Prolia Injection on 04/29/24 at 1:[address] CAM order accordingly. Thank you. [facility] 04-19-2024 Telephone encounter Note Done. Thank you HH [facility] 04-19-2024 Miscellaneous Notes Done. Thank you HH Patients bone density order expires May 06, milena does not have any availabilities till after this date. Please place new order. Thank you documented in this encounter [facility] 04-18-2024 Telephone encounter Note Patients bone density order expires May 06milena does not have any availabilities till after this date. Please place new order. Thank you [facility] 04-12-2024 Note HNO ID: [id number] Author: IZABEL KANG APRN.CUSTOMER SALES SPECIALIST Service: ? Author Type: Nurse Practitioner Type: Progress Notes Filed: 04/12/2024 13:27 Note Text: Progress Note Greyson Rojas 1970 Encounter date: 04/12/2024 Cancer Staging Carcinoma of upper-outer quadrant of right breast in female, estrogen receptor positive (HCC) Staging form: [facility] Breast, AJCC 8th Edition - Pathologic stage from 08/28/2017: Stage IB (pT2, pN0(sn), cM0, G2, ER: Positive, FL: Positive, HER2: Negative) - Signed by Claire Chaney on 08/28/2017 HPI: Greyson Rojas is a 47 year old pre-menopausal woman with 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 Ms. Rojas reports that she has always had dense breasts and fibrocystic changes. She had a palpable right breast mass that has been present since spring 2016. She had mammogram, ultrasound with 3 biopsies showing ALH, and an MRI. She underwent mammogram at [facility] on 07/15/17 showed an architectural distortion at 10 o'clock posterior depth and ultrasound demonstrated a 1.8 x 2.9 x 1.7 cm irregular mass with an irregular margin in the right breast at 10 o'clock posterior depth 5 cm from the nipple. There is also a 1.8 x 0.6 x 2.3 cm oval lymph node with a circumscribed margin in the right axilla. The cortex is 4 mm, at the upper limit of normal. Biopsy of the lesion on 07/20/17 showed grade II/III ILC, which was ER+ (90%, strong), FL+ (90%, strong), and Her2 0+ (negative) by IHC. Lymph node biopsy was negative for malignancy. Ms. Rojas underwent bilateral mastectomy and SLN biopsy on 08/18/2017. Pathology demonstrated benign breast tissue on the left. She had a 3 cm grade II/III lobular carcinoma with extensive associated lobular neoplasia. 0/2 SLN were positive for disease. No LVI. Mammoprint returned low risk luminal A type. She began tamoxifen 09/2017. She began anastrozole 10/21 after hysterectomy and stopped 03/23 secondary to significant hot flashes and bone aches. Restarted tamoxifen 03/2021. Interval History She presents today for follow up. She is doing well. She did have bladder lift in January that she tolerated well. She also was diagnosed with elevated cholesterol and placed on a statin and then she cut out red meat. She is now on oral iron due to history of TOÑA and slightly low hemoglobin. She is not on Tamoxifen any longer as she had BCI that showed no benefit to more than 5 years so she stopped at 5 years. She feels well. She denies pain other than knee pain occasionally after her TKR in July. She does also have reflux, GERD and was positive for celiac markers. She is trying to avoid gluten. No other new problems or concerns. ACTIVE PROBLEM LIST Other Acne Pyoderma, Unspecified Seborrhea Palpitations DEPRESS PSYCHOSIS-UNSPEC - 1 episode Anxiety Hypoglycemia, Unspecified Sebaceous Cyst Scar Condition and Fibrosis of Skin Dermatofibroma of Left Forearm near Wrist Carcinoma of Upper-Outer Quadrant of Right Breast in Female, Estrogen Receptor Positive (Hcc) History of Breast Cancer New Daily Persistent Headache Lump Or Mass in Breast Nonallergic Rhinitis Acute Right-Sided Low Back Pain With Right-Sided Sciatica Osteoarthritis of Spine With Radiculopathy, Lumbar Region Pelvic Pain in Female Dyspareunia, Psychogenic Cystocele With Prolapse H. Pylori Infection Gastroesophageal Reflux Disease With Esophagitis Without Hemorrhage Cough Hoarseness Toña (Iron Deficiency Anemia) Acetabular Labrum Tear, Right, Subsequent Encounter Patellofemoral Arthralgia of Left Knee Chronic Right-Sided Thoracic Back Pain Well Adult Exam Osteoporosis Dyslipidemia History of Mastectomy History of Bilateral Breast Implants Hemochromatosis Carrier Facial Twitching It Band Syndrome, Left Gastroesophageal Reflux Disease Without Esophagitis Persistent Dry Cough Vitamin D Deficiency Hyperlipidemia, Mixed Fatigue Anemia PAST SURGICAL HISTORY No date: BREAST RECONSTRUCTION Comment: implants removed and replaced 06/12/2017: BX BREAST W/DEVICE 1ST LESION ULTRASOUND GUID; Right Comment: 3 nodules; 5cm, 3cm, 3cm 03/16/2023: COLONOSCOPY 03/01/2018: COLONOSCOPY FLX DX W/COLLJ SPEC WHEN PFRMD Comment: Colonoscopy 01/07/2024: CYSTOCELE REPAIR 01/07/2024: CYSTOCELE REPAIR 11/05/2021: EGD; N/A 1982: FOOT SURGERY HX; Left Comment: Arch reshaping 01/08/2022: HIP SURGERY HX Comment: torn labrum, reshaped femoral head 02/24/2019: LAPAROSCOPIC SALPING/OOPHORECTOMY; Right Comment: Dr. Jasmin Sosa 08/18/2017: MASTECTOMY, SIMPLE, COMPLETE; Bilateral Comment: Dr. Johnson (reconstruction), Dr. 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 [facility] 04-12-2024 History of Presen t illness Narrative Progress Note Greyson Rojas 1970 Encounter date: 04/12/2024 Cancer Staging Carcinoma of upper-outer quadrant of right breast in female, estrogen receptor positive (HCC) Staging form: [facility] Breast, AJCC 8th Edition - Pathologic stage from 08/28/2017: Stage IB (pT2, pN0(sn), cM0, G2, ER: Positive, FL: Positive, HER2: Negative) - Signed by Claire Chaney on 08/28/2017 HPI: Greyson Rojas is a 47 year old pre-menopausal woman with 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 Ms. Rojas reports that she has always had dense breasts and fibrocystic changes. She had a palpable right breast mass that has been present since spring 2016. She had mammogram, ultrasound with 3 biopsies showing ALH, and an MRI. She underwent mammogram at [facility] on 07/15/17 showed an architectural distortion at 10 o'clock posterior depth and ultrasound demonstrated a 1.8 x 2.9 x 1.7 cm irregular mass with an irregular margin in the right breast at 10 o'clock posterior depth 5 cm from the nipple. There is also a 1.8 x 0.6 x 2.3 cm oval lymph node with a circumscribed margin in the right axilla. The cortex is 4 mm, at the upper limit of normal. Biopsy of the lesion on 07/20/17 showed grade II/III ILC, which was ER+ (90%, strong), FL+ (90%, strong), and Her2 0+ (negative) by IHC. Lymph node biopsy was negative for malignancy. Ms. Rojas underwent bilateral mastectomy and SLN biopsy on 08/18/2017. Pathology demonstrated benign breast tissue on the left. She had a 3 cm grade II/III lobular carcinoma with extensive associated lobular neoplasia. 0/2 SLN were positive for disease. No LVI. Mammoprint returned low risk luminal A type. She began tamoxifen 09/2017. She began anastrozole 10/21 after hysterectomy and stopped 03/23 secondary to significant hot flashes and bone aches. Restarted tamoxifen 03/2021. Interval History She presents today for follow up. She is doing well. She did have bladder lift in January that she tolerated well. She also was diagnosed with elevated cholesterol and placed on a statin and then she cut out red meat. She is now on oral iron due to history of TOÑA and slightly low hemoglobin. She is not on Tamoxifen any longer as she had BCI that showed no benefit to more than 5 years so she stopped at 5 years. She feels well. She denies pain other than knee pain occasionally after her TKR in July. She does also have reflux, GERD and was positive for celiac markers. She is trying to avoid gluten. No other new problems or concerns. ACTIVE PROBLEM LIST Other Acne Pyoderma, Unspecified Seborrhea Palpitations DEPRESS PSYCHOSIS-UNSPEC - 1 episode Anxiety Hypoglycemia, Unspecified Sebaceous Cyst Scar Condition and Fibrosis of Skin Dermatofibroma of Left Forearm near Wrist Carcinoma of Upper-Outer Quadrant of Right Breast in Female, Estrogen Receptor Positive (Hcc) History of Breast Cancer New Daily Persistent Headache Lump Or Mass in Breast Nonallergic Rhinitis Acute Right-Sided Low Back Pain With Right-Sided Sciatica Osteoarthritis of Spine With Radiculopathy, Lumbar Region Pelvic Pain in Female Dyspareunia, Psychogenic Cystocele With Prolapse H. Pylori Infection Gastroesophageal Reflux Disease With Esophagitis Without Hemorrhage Cough Hoarseness Toña (Iron Deficiency Anemia) Acetabular Labrum Tear, Right, Subsequent Encounter Patellofemoral Arthralgia of Left Knee Chronic Right-Sided Thoracic Back Pain Well Adult Exam Osteoporosis Dyslipidemia History of Mastectomy History of Bilateral Breast Implants Hemochromatosis Carrier Facial Twitching It Band Syndrome, Left Gastroesophageal Reflux Disease Without Esophagitis Persistent Dry Cough Vitamin D Deficiency Hyperlipidemia, Mixed Fatigue Anemia PAST SURGICAL HISTORY No date: BREAST RECONSTRUCTION Comment: implants removed and replaced 06/12/2017: BX BREAST W/DEVICE 1ST LESION ULTRASOUND GUID; Right Comment: 3 nodules; 5cm, 3cm, 3cm 03/16/2023: COLONOSCOPY 03/01/2018: COLONOSCOPY FLX DX W/COLLJ SPEC WHEN PFRMD Comment: Colonoscopy 01/07/2024: CYSTOCELE REPAIR 01/07/2024: CYSTOCELE REPAIR 11/05/2021: EGD; N/A 1982: FOOT SURGERY HX; Left Comment: Arch reshaping 01/08/2022: HIP SURGERY HX Comment: torn labrum, reshaped femoral head 02/24/2019: LAPAROSCOPIC SALPING/OOPHORECTOMY; Right Comment: Dr. Jasmin Sosa 08/18/2017: MASTECTOMY, SIMPLE, COMPLETE; Bilateral Comment: Dr. Johnson (reconstruction), Dr. 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 S[facility] 2020: TOTAL ABD HYSTERECTOMY+BLAD REPR; N/A Comment: [facility] with rectocele and bladder sling 07/24/2023: TOTAL KNEE REPLACEMENT; Left Social History Tobacco Use Smoking status: Never Smokeless tobacco: Never Vaping Use Vaping status: Never Used Substance Use Topics Alcohol use: No Drug use: No Review of Systems Constitutional: Negative. HENT: Negative. Respiratory: Negative. Cardiovascular: Negative. Gastrointestinal: Negative. Genitourinary: Negative. Musculoskeletal: Negative. Skin: Negative. Neurological: Negative. Hematological: Negative. Psychiatric/Behavioral: Negative. Current Outpatient Medications Medication Sig Dispense Refill IBSRELA 50 mg tablet take one tablet by mouth twice daily with meals 60 tablet 5 meloxicam (MOBIC) 7.5 mg tablet triamcinolone (KENALOG) 0.025 % cream PLEASE SEE ATTACHED FOR DETAILED DIRECTIONS omeprazole (PRILOSEC) 20 mg capsule TAKE 1 CAPSULE ONCE DAILY 90 capsule 2 denosumab (PROLIA SUBCUTANEOUS) rosuvastatin (CRESTOR) 5 mg tablet Take 1 tablet by mouth daily at bedtime. 90 tablet 3 venlafaxine ER (EFFEXOR XR) 37.5 mg 24 hr capsule TAKE 1 CAPSULE ONCE DAILY 90 capsule 3 loratadine 10 mg cap Take by mouth. KRILL OIL ORAL Take 800 mg by mouth once daily. GEMTESA 75 mg tablet Take 75 mg by mouth once daily. COMPRESSION SLEEVE as directed. Breast cancer. 20-30 mmHg 2 Each 0 mecobalamin (B12 ACTIVE ORAL) Take 1 tablet by mouth once daily. CALCIUM CARBONATE/VITAMIN D3 (VITAMIN D-3 ORAL) Take by mouth twice daily. No current facility-administered medications for this visit. Facility-Administered Medications Ordered in Other Visits Medication Dose Route Frequency Provider Last Rate Last Admin lidocaine (PF) 10 mg/mL (1 %) 1-2 mg injection (XYLOCAINE) 0.1-0.2 mL INTRADERMAL PRN Alejandro Hatfield MD lactated ringers iv infusion 30 mL/hr INTRAVENOUS CONTINUOUS Alejandro Hatfield MD ALLERGIES Allergen Reactions Penicillins Hives Other reaction(s): hives all over body Nickel Rash Hemoglobin (g/dL) Date Value 03/14/2024 11.1 01/25/2021 13.5 Hematocrit (%) Date Value 03/14/2024 35.7 01/25/2021 42.5 WBC (k/uL) Date Value 03/14/2024 9.25 01/25/2021 5.98 Platelet Count (k/uL) Date Value 03/14/2024 254 01/25/2021 214 LMP 06/08/2020 (Approximate) Last 3 Encounter BP Readings: Date: BP: 03/16/2024 100/60 03/11/2024 120/80 02/01/2024 116/76 Physical Exam Constitutional: General: She is not in acute distress. Appearance: Normal appearance. She is not ill-appearing. HENT: Head: Normocephalic and atraumatic. Cardiovascular: Rate and Rhythm: Normal rate and regular rhythm. Pulses: Normal pulses. Heart sounds: Normal heart sounds. Pulmonary: Effort: Pulmonary effort is normal. Breath sounds: Normal breath sounds. Chest: Breasts: Right: Absent. No swelling, mass, skin change or tenderness. Left: Absent. No swelling, mass, skin change or tenderness. Comments: Bilateral mastectomies with implants Abdominal: General: Bowel sounds are normal. There is no distension. Palpations: Abdomen is soft. There is no mass. Tenderness: There is no abdominal tenderness. Musculoskeletal: General: No swelling. Normal range of motion. Cervical back: Normal range of motion and neck supple. Lymphadenopathy: Upper Body: Right upper body: No supraclavicular, axillary or pectoral adenopathy. Left upper body: No supraclavicular, axillary or pectoral adenopathy. Skin: General: Skin is warm and dry. Coloration: Skin is not jaundiced or pale. Neurological: General: No focal deficit present. Mental Status: She is alert and oriented to person, place, and time. Cranial Nerves: No cranial nerve deficit. Psychiatric: Mood and Affect: Mood normal. Behavior: Behavior normal. Thought Content: Thought content normal. Assessment and Plan: Ms. 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 Right breast cancer -S/p bilateral mastectomy -Mammaprint low risk -Discussed no role for chemotherapy, radiation -Plan for 10 years of tamoxifen vs switch therapy. Began 09/2017. S/p hysterectomy 10/2020, began anastrozole. Did not tolerate secondary to joint aches. Resumed tamoxifen 03/2021 then stopped after 5 years due to BCI score. -No role for further mammogram--observing some scar tissue bilateral medial scar with ultrasound in 6 months. -Surgeon is Dr. Chaney -RTC 1 year H63D heterozygote. -Carrier for hemochromatosis -Elevated ferritin may be secondary to her recent surgery -Repeat ferritin normal Izabel Kang APRN.CUSTOMER SALES SPECIALIST HPI and A/P documentation from Dr. Brar previous visit of 04/23/23 was copied and pasted, documentation has been reviewed and edited as necessary for today's visit Medical Decision Making: Problems: Low: Stable chronic illness Risk: Low: Low risk from testing/treatment Medical Decision Making Level: 3 - Low documented in this encounter [facility] 03-30-2024 Telephone encounter Note Patient phones requesting refills as follows: Requested Prescriptions Pending Prescriptions Disp Refills IBSRELA 50 mg tablet [Pharmacy Med Name: Ibsrela 50 mg tablet] 60 tablet 5 Sig: take one tablet by mouth twice daily with meals Please review and advise. Jessica Irving MA [facility] 03-30-2024 Miscellaneous Notes Patient phones requesting refills as follows: Requested Prescriptions Pending Prescriptions Disp Refills IBSRELA 50 mg tablet [Pharmacy Med Name: Ibsrela 50 mg tablet] 60 tablet 5 Sig: take one tablet by mouth twice daily with meals Please review and advise. Jessica Irving MA documented in this encounter [facility] 03-16-2024 Instructions Gallo Sanches DO - 03/16/2024 8:11 AM EDT S[place] iron supplement with 45-67 mg every other day documented in this encounter [facility] 03-16-2024 History of Presen t illness Narrative CC: Greyson Rojas is a 54 year old female who presents to the office for physical HPI: Saw Pulmonology and feels that symptoms are related to her GERD. Had lung testing and was evaluated for Asthma and COPD and other pulm diseases- which were all ruled out. Seen by by Inspector [employer] Ceci Luna, told to add on Famotidine 40 mg in the evening. This seems to be helping her symptoms Left knee pain, diagnosed with IT band syndrome by Dr. [facility]. Has been taking meloxicam 7.5 mg a day but thinks this is causing stomach upset and GERD symptoms as well as diarrhea. Has stopped it yesterday and feels symptoms are improved. Would like to consider PHYSICAL THERAPY if not improving Facial twitching on left, had MRI brain and other neurologic testing. Likely is related to stress. Seems to be improving Some fatigue symptoms, recently found to have mild anemia. Has recently stopped eating red meats. No abnormal bleeding that she has noticed. Had recent cystocele repair surgery without excess bleeding HPL, taking rosuvastatin 5 mg a day, no SE with medication. Tolerating well Cholesterol, Total Date Value Ref Range Status 03/14/2024 154 <200 mg/dL Final Comment: <200 mg/dL, Desirable 200-239 mg/dL, Borderline high >239 mg/dL, High HDL Cholesterol Date Value Ref Range Status 03/14/2024 74 >39 mg/dL Final Comment: 40-59 mg/dL, Acceptable >59 mg/dL, High: Negative risk factor for coronary heart disease <40 mg/dL, Low: Positive risk factor for coronary heart disease LDL Cholesterol Date Value Ref Range Status 03/14/2024 69 <100 mg/dL Final Comment: <100 mg/dL, Optimal 100-129 mg/dL, Near optimal/above optimal 130-159 mg/dL, Borderline high 160-189 mg/dL, High >189 mg/dL, Very high Secondary prevention optimal LDL Cholesterol levels are recommended to be < 70 mg/dL Triglyceride Date Value Ref Range Status 03/14/2024 57 <150 mg/dL Final Comment: <150 mg/dL, Normal 150-199 mg/dL, Borderline high 200-499 mg/dL, High >499 mg/dL, Very high The 10-year ASCVD risk score (Gómez MYERS, et al., 2019) is: 0.8% Values used to calculate the score: Age: 54 years Sex: Female Is Non- : No Diabetic: No Tobacco smoker: No Systolic Blood Pressure: 100 mmHg Is BP treated: No HDL Cholesterol: 74 mg/dL Total Cholesterol: 154 mg/dL PAST MEDICAL HISTORY No date: Anemia, unspecified Comment: iron deficiency 08/2017: Breast cancer (HCC) 06/2017: Breast mass Comment: right breast No date: Diffuse cystic mastopathy No date: Helicobacter pylori infection No date: Hiatal hernia No date: History of prolapse of bladder 2000: Major depressive disorder, single episode, unspecified Comment: depressed year after 3rd child: treated for 1 year with Zoloft No date: Meniere disease Comment: Dr. Marie [facility] No date: Panic disorder without agoraphobia Comment: periodic symptoms 03/27/2023: Use of tamoxifen (Nolvadex) PAST SURGICAL HISTORY No date: BREAST RECONSTRUCTION Comment: implants removed and replaced 06/12/2017: BX BREAST W/DEVICE 1ST LESION ULTRASOUND GUID; Right Comment: 3 nodules; 5cm, 3cm, 3cm 03/16/2023: COLONOSCOPY 03/01/2018: COLONOSCOPY FLX DX W/COLLJ SPEC WHEN PFRMD Comment: Colonoscopy 01/07/2024: CYSTOCELE REPAIR 01/07/2024: CYSTOCELE REPAIR 11/05/2021: EGD; N/A 1982: FOOT SURGERY HX; Left Comment: Arch reshaping 01/08/2022: HIP SURGERY HX Comment: torn labrum, reshaped femoral head 02/24/2019: LAPAROSCOPIC SALPING/OOPHORECTOMY; Right Comment: Dr. Jasmin Sosa 08/18/2017: MASTECTOMY, SIMPLE, COMPLETE; Bilateral Comment: Dr. Johnson (reconstruction), Dr. 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STERE[facility]+BLAD REPR; N/A Comment: [facility] with rectocele and bladder sling 07/24/2023: TOTAL KNEE REPLACEMENT; Left Social History: Social History Tobacco Use Smoking status: Never Smokeless tobacco: Never Vaping Use Vaping Use: Never used Substance Use Topics Alcohol use: No Drug use: No FAMILY HISTORY Problem Relation Age of Onset Cancer Mother melanoma Hypertension Mother Lipids Mother Breast Cancer Mother 63 lumpectomy, radiation, anastrozole x 5 years Diabetes Mother Skin Cancer Mother basel cell Arthritis Father Lipids Father High Triglycerides Heart Father ICD/pacer, CHF/s/p VT (cause of ) Diabetes Father Osteoporosis Sister Diabetes Sister Lipids Sister Osteoporosis Sister other (hydrocephalus) Sister other (spina bifida) Sister Hypertension Brother Osteoporosis Maternal Grandmother Colon Cancer Paternal Grandmother Cancer Paternal Grandfather HCC-EtOH abuse No Known Problems Daughter other (POTS) Daughter 28 other (PCOS) Daughter 25 Heart Maternal Uncle enlarged heart: cardiomyopathy other (ETOH) Paternal Uncle liver, cause of Breast Cancer Maternal cousin 49 Current Outpatient prescriptions: meloxicam (MOBIC) 7.5 mg tablet^^Disp: ^Rfl: triamcinolone (KENALOG) 0.025 % cream^PLEASE SEE ATTACHED FOR DETAILED DIRECTIONS^Disp: ^Rfl: omeprazole (PRILOSEC) 20 mg capsule^TAKE 1 CAPSULE ONCE DAILY^Disp: 90 capsule^Rfl: 2 denosumab (PROLIA SUBCUTANEOUS)^^Disp: ^Rfl: rosuvastatin (CRESTOR) 5 mg tablet^Take 1 tablet by mouth daily at bedtime.^Disp: 90 tablet^Rfl: 3 tenapanor (IBSRELA) 50 mg tablet^Take 1 tablet (50 mg) by mouth two times a day with meals.^Disp: 60 tablet^Rfl: 5 venlafaxine ER (EFFEXOR XR) 37.5 mg 24 hr capsule^TAKE 1 CAPSULE ONCE DAILY^Disp: 90 capsule^Rfl: 3 loratadine 10 mg cap^Take by mouth.^Disp: ^Rfl: KRILL OIL ORAL^Take 800 mg by mouth once daily.^Disp: ^Rfl: GEMTESA 75 mg tablet^Take 75 mg by mouth once daily.^Disp: ^Rfl: COMPRESSION SLEEVE^as directed. Breast cancer. 20-30 mmHg^Disp: 2 Each^Rfl: 0 mecobalamin (B12 ACTIVE ORAL)^Take 1 tablet by mouth once daily.^Disp: ^Rfl: CALCIUM CARBONATE/VITAMIN D3 (VITAMIN D-3 ORAL)^Take by mouth twice daily. ^Disp: ^Rfl: Allergies: ALLERGIES Allergen Reactions Penicillins Hives Other reaction(s): hives all over body Nickel Rash ROS: See HPI PE: 03/16/24 0744 BP: 100/60 Pulse: 76 Resp: 16 Temp: 36.1 C (97 F) TempSrc: Right Tympanic Weight: 61.2 kg (135 lb) Height: 160 cm (5' 2.99) Gen: A&O, NAD, non-toxic appearing, Pleasant, cooperative HEENT: NT/AC, PERRLA, EOMs intact b/l, nares clear and patent b/l, pharynx without erythema, exudate or lesions. Uvula midline, MMM. EACs without erythema or debris. TMs pearly collazo with intact landmarks b/l. Neck: supple, No cervical LAD, no thyromegaly, no carotid bruits CV: RRR, normal S1 and S2, no murmurs, no gallops, no rubs, Pulses 2+ and symmetric in UE and LE b/l Lungs: normal respiratory effort, CTA b/l, no wheezing or rhonchi or rales Abd: soft, NT, ND, +BS, no hepatosplenomegaly MS: TTP left lateral knee at area of IT band insertion Neuro: CN II-XII intact b/l, strength 5/5 b/l UE and LE, DTRs 2/4 UE and LE, sensation intact. Skin: warm, dry, intact, No rashes or lesions on exposed skin. No edema, normal pulses ASSESSMENT/PLAN: 1. Well adult exam - ICD9: V70.0, ICD10: Z00.00 (primary diagnosis) - Counseled on healthy diet and regular exercise 2. Anemia, unspecified type - ICD9: 285.9, ICD10: D64.9 Labs as ordered Needs to start iron supplement - IRON AND TIBC - FERRITIN - COMPLETE BLOOD COUNT AND DIFFERENTIAL - VITAMIN B12 - VITAMIN D 25 HYDROXY 3. Fatigue, unspecified type - ICD9: 780.79, ICD10: R53.83 Labs as ordered Needs to start iron supplement - VITAMIN B12 4. Hyperlipidemia, mixed - ICD9: 272.2, ICD10: E78.2 - Controlled - Continue current medications - Counseled on healthy diet and regular exercise 5. Persistent dry cough - ICD9: 786.2, ICD10: R05.3 - secondary to GERD, has seen Pulmonology 6. Gastroesophageal reflux disease without esophagitis - ICD9: 530.81, ICD10: K21.9 - Discussed lifestyle modifications including losing weight, limiting caffeine, no meals three hours before sleep, and head of bed elevation - Continue treatment with Prilosec 20 mg every day and pepcid qhs prn 7. Vitamin D deficiency - ICD9: 268.9, ICD10: E55.9 Continue supplement - VITAMIN D 25 HYDROXY 8. It band syndrome, left - ICD9: 728.89, ICD10: M76.32 Follow up with PHYSICAL THERAPY if not improving, start on topical voltaren cream - CONSULT TO PHYSICAL THERAPY 9. Facial twitching - ICD9: 351.8, ICD10: G51.4 F/u with Neurologist if not improved, seems to be improving though Gallo Sanches DO To ER if develops chest pain, shortness of breath, or severe worsening of symptoms. Discussed risks, benefits, alternatives, and potential side effects of medications. Patient expressed understanding and agreed with the plan. Gallo Sanches DO [address] [place] [address] documented in this encounter [facility] 03-13-2024 Instructions Ashtyn Javier APRN.FAHEEM - 03/13/2024 9:19 PM EDT Images from the original note were not included. Breast Self-Exam What is a breast self-exam? A breast self-exam is a technique that a woman can use to examine her breasts to look for changes (such lumps or thickenings) that may signal breast cancer. When a woman detects breast cancer in its early stages, she greatly improves her chances for surviving the disease. Most breast lumps (80 percent) are not cancerous, but you can help ensure your breast health by regularly performing a breast self-exam. When should I perform a breast self-exam? You should perform a breast self-exam once a month, three to five days after your menstrual period ends. If you have stopped menstruating, perform the exam on the same day of each month, such as the first day of the month or a day easy for you to remember, like your date. The exam will take several minutes to perform. With each exam, you will become familiar with the contours and feel of your breasts and will be more alert to changes. 1. The first part of the exam is the inspection, or looking at your breasts. Stand undressed from waist up in front of a large mirror in a well-lit room. Look at your breasts. Don't be alarmed if they do not look equal in size or shape. Most women's breasts are not. With your arms relaxed by your sides, look for any changes in your breasts' size, shape, texture, or skin. Look for any sores as well as any puckering, dimpling, or discoloration of the skin. Inspect your nipples and look for any sores, peeling, or change in the direction of the nipples. 2. Next, place your hands on your hips and press down firmly to tighten the chest muscles beneath your breasts. Turn from side to side so you can inspect the outer part of your breasts. 3. Bend forward toward the mirror. Roll your shoulders and elbows forward to tighten your chest muscles. Your breasts will fall forward. Look for any changes in the shape or contour of your breasts. 4. Now, clasp your hands behind your head and press your hands forward. Again, turn from side to side to inspect your breasts' outer portions. Remember to inspect the border underneath your breasts. You may need to lift your breasts with your hand to see this area. 5. Check your nipples for discharge (fluid). Place your thumb and forefinger on the tissue surrounding the nipple, and pull outward toward the end of the nipple. Look for any discharge. Repeat on your other breast. In the shower 6. The second part of the exam is palpation, or feeling for changes. Use the finger pads of your three middle fingers on each hand to feel for lumps. It is helpful to have your hands slippery with soap and water. Check for any lumps or thickening in your underarm area. Place your left hand on your hip and reach with your right hand to feel in the left armpit. Repeat on the other side. 7. Check both sides for lumps or thickenings below your collarbone. 8. With soapy hands, support the breast with one hand while using the other hand to feel the tissue. Use the flat part of your fingers to press gently into the breast. Follow an up-and-down pattern along the breast, moving from bra line to collarbone. Continue the pattern until you have covered the entire breast. Repeat on the other side. Lying down 9. Next, lie down and place a small pillow or folded towel under your right shoulder. Put your right hand behind your head. Place your left hand on the upper portion of your right breast with fingers together and flat. Body lotion may help to make palpation easier. 10. Think of your breast as a face on a clock. Start at 12 o'clock and move toward 1 o'clock in small circular motions. Continue around the entire sauk-suiattle until you reach 12 o'clock again. Keep your fingers flat and in constant contact with your breast. When the sauk-suiattle is complete, move in one inch toward the nipple and complete another sauk-suiattle around the clock. Continue in this pattern until your entire breast has been palpated. Make sure to palpate the upper outer areas that extend into your armpit. 11. Place your fingers flat and directly on top of your nipple. Feel beneath the nipple for any changes. Gently press your nipple inward. It should move easily. Repeat steps 9, 10, and 11 on your other breast. What should I do if I find a lump? See your physician if you discover any new breast changes, changes that persist after your menstrual cycle, or changes that concern you. Conditions that should be checked by a physician include: An area that is distinctly different from any other area on either breast A lump or thickening in or near the breast or in the underarm that persists through the menstrual cycle A change in the size, shape, or contour of the breast A mass or lump, which may feel as small as a pea A marble-like area under the skin A change in the feel or appearance of the skin on the breast or nipple (dimpled, puckered, scaly, or inflamed [red, warm, or swollen]) Bloody or clear fluid discharge from the nipples Redness of the skin on the breast or nipple References [employer]. Breast Cancer Accessed 07/04/2013. Antonio P, Hawk M, Anam H. Breast disorders and breast cancer screening. In: Yadi CARDENAS, ed. [facility]: Current Clinical Medicine 2010. 2nd ed. [place], [place]: Norbert Persaud; 2010:section 15. Copyright 4852-9081 [facility]. All rights reserved This information is provided by the [facility] and is not intended to replace the medical advice of your doctor or health care provider. Please consult your health care provider for advice about a specific medical condition. For additional health information, please contact the Center for Consumer Health Information at the [facility] or toll-free extension [phone]. If you prefer, you may visit [email or web address] documented in this encounter [facility] 03-11-2024 Nurse Note Patient is here for her yearly exam. Patient is not having any breast pains or concerns. ST Tu [facility] 03-11-2024 Nurse Note Patient is here for her yearly exam. Patient is not having any breast pains or concerns. ST Tu documented in this encounter [facility] 03-11-2024 Telephone encounter Note Pt notified of such. [facility] 03-11-2024 Miscellaneous Notes Pt notified of such. Routine labs are placed -- this includes kidney function labs. Thank you, Izabella Holland APRN.CNP Please see pt message -- Jonathan kelly- I have my yearly physical coming up next week. I was wondering if you ordered bloodwork for me to do before my visit? Also, Dr. Sanii office would like you to order complete bloodwork for my kidney function because I have been on Meloxicam for a number of months. He wants to be sure they are still functioning good because Meloxicam affects the kidneys. Please let me know your thoughts. Thanks Otto Crystal documented in this encounter [facility] 03-11-2024 Telephone encounter Note Routine labs are placed -- this includes kidney function labs. Thank you, Izabella Holland APRN.CUSTOMER SALES SPECIALIST [facility] 03-11-2024 History of Presen t illness Narrative Images from the original note were not included. Ashtyn Javier, COMPLIANCE ADVISOR-CUSTOMER SALES SPECIALIST, OCN Breast [facility] [address] [id number] Date of Visit: 03/11/2024 Patient Name: Greyson Rojas Date of : 1970 Established Visit Breast Surgeon: Claire Chaney MD Plastic Surgeon: Oliver Johnson MD Medical Oncologist: Olya Brar MD SUBJECTIVE Chief Complaint: Patient presents with: Yearly Exam HPI Greyson Rojas is a 54 year old female who presents today for annual clinical breast exam. She is an established [facility] patient and was last seen in the [facility] 03[facility]11/[facility]22. She denies current breast concerns including palpable breast lumps or masses, enlarged lymph nodes, pain, tenderness, skin changes, erythema, nipple discharge or breast trauma. Implant history: Original implants 2017 Dr. Johnson Replaced with smaller implants 2021 Dr Knight (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 Began anastrozole, unable to tolerate due to arthralgias, switched back to tamoxifen 04/2021. Discontinued at 5 years - 09/16/[address] Brar. Nursing Notes: Shana Caicedo ST 03/11/2024 9:57 AM Signed Patient is here for her yearly exam. Patient is not having any breast pains or concerns. ST Tu No question data found. Family and personal medical histories reviewed and updated. REVIEW OF SYSTEMS: Complete 10 system ROS done and negative except as stated above in the HPI. Current Outpatient Medications Medication Sig Dispense Refill meloxicam (MOBIC) 7.5 mg tablet triamcinolone (KENALOG) 0.025 % cream PLEASE SEE ATTACHED FOR DETAILED DIRECTIONS omeprazole (PRILOSEC) 20 mg capsule TAKE 1 CAPSULE ONCE DAILY 90 capsule 2 denosumab (PROLIA SUBCUTANEOUS) rosuvastatin (CRESTOR) 5 mg tablet Take 1 tablet by mouth daily at bedtime. 90 tablet 3 tenapanor (IBSRELA) 50 mg tablet Take 1 tablet (50 mg) by mouth two times a day with meals. 60 tablet 5 venlafaxine ER (EFFEXOR XR) 37.5 mg 24 hr capsule TAKE 1 CAPSULE ONCE DAILY 90 capsule 3 loratadine 10 mg cap Take by mouth. KRILL OIL ORAL Take 800 mg by mouth once daily. GEMTESA 75 mg tablet Take 75 mg by mouth once daily. COMPRESSION SLEEVE as directed. Breast cancer. 20-30 mmHg 2 Each 0 mecobalamin (B12 ACTIVE ORAL) Take 1 tablet by mouth once daily. CALCIUM CARBONATE/VITAMIN D3 (VITAMIN D-3 ORAL) Take by mouth twice daily. No current facility-administered medications for this visit. Facility-Administered Medications Ordered in Other Visits Medication Dose Route Frequency Provider Last Rate Last Admin lidocaine (PF) 10 mg/mL (1 %) 1-2 mg injection (XYLOCAINE) 0.1-0.2 mL INTRADERMAL PRN Alejandro Hatfield MD lactated ringers iv infusion 30 mL/hr INTRAVENOUS CONTINUOUS Alejandro Hatfield MD I have performed the physical exam on 03/11/2024 - all new findings noted below. PAST MEDICAL HISTORY No date: Anemia, unspecified Comment: iron deficiency 08/2017: Breast cancer (HCC) 06/2017: Breast mass Comment: right breast No date: Diffuse cystic mastopathy No date: Helicobacter pylori infection No date: Hiatal hernia No date: History of prolapse of bladder 2000: Major depressive disorder, single episode, unspecified Comment: depressed year after 3rd child: treated for 1 year with Zoloft No date: Meniere disease Comment: Dr. Marie ENT No date: Panic disorder without agoraphobia Comment: periodic symptoms 03/27/2023: Use of tamoxifen (Nolvadex) PAST SURGICAL HISTORY No date: BREAST RECONSTRUCTION Comment: implants removed and replaced 06/12/2017: BX BREAST W/DEVICE 1ST LESION ULTRASOUND GUID; Right Comment: 3 nodules; 5cm, 3cm, 3cm 03/16/2023: COLONOSCOPY 03/01/2018: COLONOSCOPY FLX DX W/COLLJ SPEC WHEN PFRMD Comment: Colonoscopy 01/07/2024: CYSTOCELE REPAIR 11/05/2021: EGD; N/A 1982: FOOT SURGERY HX; Left Comment: Arch reshaping 01/08/2022: HIP SURGERY HX Comment: torn labrum, reshaped femoral head 02/24/2019: LAPAROSCOPIC SALPING/OOPHORECTOMY; Right Comment: Dr. Jasmin Sosa 08/18/2017: MASTECTOMY, SIMPLE, COMPLETE; Bilateral Comment: Dr. Johnson (reconstruction), Dr. 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 HYSTERECTOM[facility]+BLAD REPR; N/A Comment: [facility] with rectocele and bladder sling 07/24/2023: TOTAL KNEE REPLACEMENT; Left Social History Tobacco Use Smoking status: Never Smokeless tobacco: Never Vaping Use Vaping Use: Never used Substance Use Topics Alcohol use: No Drug use: No FAMILY HISTORY Problem Relation Age of Onset Cancer Mother melanoma Hypertension Mother Lipids Mother Breast Cancer Mother 63 lumpectomy, radiation, anastrozole x 5 years Diabetes Mother Skin Cancer Mother basel cell Arthritis Father Lipids Father High Triglycerides Heart Father ICD/pacer, CHF/s/p VT (cause of ) Diabetes Father Osteoporosis Sister Diabetes Sister Lipids Sister Osteoporosis Sister other (hydrocephalus) Sister other (spina bifida) Sister Hypertension Brother Osteoporosis Maternal Grandmother Colon Cancer Paternal Grandmother Cancer Paternal Grandfather HCC-EtOH abuse No Known Problems Daughter other (POTS) Daughter 28 other (PCOS) Daughter 25 Heart Maternal Uncle enlarged heart: cardiomyopathy other (ETOH) Paternal Uncle liver, cause of Breast Cancer Maternal cousin 49 The ROS, medical, surgical, family, and 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 were reviewed by Ashtyn Javier APRN.CUSTOMER SALES SPECIALIST ALLERGIES Allergen Reactions Penicillins Hives Other reaction(s): hives all over body Nickel Rash Current Outpatient Medications Medication Sig meloxicam (MOBIC) 7.5 mg tablet triamcinolone (KENALOG) 0.025 % cream PLEASE SEE ATTACHED FOR DETAILED DIRECTIONS omeprazole (PRILOSEC) 20 mg capsule TAKE 1 CAPSULE ONCE DAILY denosumab (PROLIA SUBCUTANEOUS) rosuvastatin (CRESTOR) 5 mg tablet Take 1 tablet by mouth daily at bedtime. tenapanor (IBSRELA) 50 mg tablet Take 1 tablet (50 mg) by mouth two times a day with meals. venlafaxine ER (EFFEXOR XR) 37.5 mg 24 hr capsule TAKE 1 CAPSULE ONCE DAILY loratadine 10 mg cap Take by mouth. KRILL OIL ORAL Take 800 mg by mouth once daily. GEMTESA 75 mg tablet Take 75 mg by mouth once daily. COMPRESSION SLEEVE as directed. Breast cancer. 20-30 mmHg mecobalamin (B12 ACTIVE ORAL) Take 1 tablet by mouth once daily. CALCIUM CARBONATE/VITAMIN D3 (VITAMIN D-3 ORAL) Take by mouth twice daily. No current facility-administered medications for this visit. Facility-Administered Medications Ordered in Other Visits Medication Dose Route Frequency lidocaine (PF) 10 mg/mL (1 %) 1-2 mg injection (XYLOCAINE) 0.1-0.2 mL INTRADERMAL PRN lactated ringers iv infusion 30 mL/hr INTRAVENOUS CONTINUOUS OBJECTIVE BP 120/80 Pulse 73 Ht 160 cm (5' 3) Wt 59.9 kg (132 lb) LMP 06/08/2020 (Approximate) BMI 23.38 kg/m BMI 23.38 kg/(m^2) Physical Exam BREAST EXAM: Bilateral mastectomy with implant reconstruction. Bilateral mastectomy incisional scars, right axillary incisional scar. No palpable masses, axillary or supraclavicular adenopathy noted bilaterally. ASSESSMENT/PLAN: 1. Carcinoma of upper-outer quadrant of right breast in female, estrogen receptor positive (HCC) - ICD9: 174.4, V86.0, ICD10: C50.411, Z17.0 (primary diagnosis) 2. History of bilateral breast implants - ICD9: V43.82, ICD10: Z98.82 3. History of bilateral mastectomy - ICD9: V45.71, ICD10: Z90.13 Greyson Rojas is a 54 year old female who presents today for annual clinical breast exam. She is status post bilateral skin sparing mastectomies, right sentinel lymph node biopsy on 08/18/2017 for invasive lobular carcinoma grade 2, ER/FL+ H2N - and risk reduction. Pathological stage IB [pT2(3cm)N0(0/2)M0]. She completed 5 years of adjuvant endocrine therapy in September 2022 under the supervision of Dr Brar. She denies any breast related concerns or complaints. There are no concerning or suspicious findings demonstrated on today's clinical breast exam. She will maintain vigilant breast awareness and continue monthly self breast exams. She will contact us with any concerns. She is clinically stable and has no evidence of disease. She will return in one year for clinical breast exam. The above reflects my independent exam and review. I saw and examined the patient myself personally. Parts of the HPI, ROS, exam and impression/plan may have been copied from my personal previous clinical note and remain pertinent. Current changes have been made and documented today. Other parts or data were deleted if not relevant for today. Plan as outlined. Follow up: Return in about 1 year (around 03/11/2025) for clinical exam. Medical Decision Making: Problems: Low: Stable chronic illness Data: Unique test result(s) reviewed: 3+ Medical Decision Making Level: 3 - Low Ashtyn Javier APRN.CNP I verified the veterinary medical officer/nurse documentation in the medical record, and made appropriate changes. I personally performed a history,physical exam and medical decision making. Ashtyn Javier APRN-CUSTOMER SALES SPECIALIST, OCN documented in this encounter [facility] 03-11-2024 Telephone encounter Note Please see pt message -- Jonathan kelly- I have my yearly physical coming up next week. I was wondering if you ordered bloodwork for me to do before my visit? Also, Dr. Saini office would like you to order complete bloodwork for my kidney function because I have been on Meloxicam for a number of months. He wants to be sure they are still functioning good because Meloxicam affects the kidneys. Please let me know your thoughts. Thanks Otto Rojas [facility] 03-11-2024 Telephone encounter Note Turned into TE Eula Narayanan MA [facility] 03-11-2024 Miscellaneous Notes Turned into TE Eula Narayaann MA documented in this encounter [facility] 02-10-2024 History of Presen t illness Narrative Radiology Service Progress Note DATE OF SERVICE: February 10, 2024 TIME: 8:55 AM PATIENT WEIGHT: 134 LBS PATIENT IDENTITY VERIFICATION COMPLETED USING TWO (2) STANDARD IDENTIFIERS: Name and Date of confirmed by patient verbally. FALL SCREENING: Has the patient had 2 falls in the last year or 1 fall with injury or currently using an Ambulatory Assistive Device (Walker, Cane, Wheelchair, Crutches, etc.)? No PATIENT GENDER DATA: Female. status: : No status: NO. ALLERGIES: Reviewed and unchanged CONTRAST ALLERGY: No EXAM: MRI - CONTRAST TYPE: GROUP II IV SITE: Ambulatory: A peripheral IV was started in the Left antecubital site with a Angio cath: 22 gauge. and A Saline lock was inserted per protocol IV SITE APPEARANCE: Clean,Dry and Intact SIGNATURE: Soila Bonilla RN PATIENT NAME: Greyson Rojas DATE: February 10, 2024 TIME: 8:55 AM documented in this encounter [facility] 02-01-2024 Instructions Ceci Luna PA-C - 02/01/2024 10:58 AM EDT -- Can start Pepcid ( Famotidine ) up to 40 mg as needed for GERD flares Recommend high protein, high fiber diet. Promotion of salivation through oral lozenges/chewing gum Drink plenty of water Avoid NSAIDs (such as Advil, Ibuprofen, Excedrin, Mobic), tobacco, alcohol, carbonated beverages, caffeine, chocolate, tomato based sauces, spicy/fatty foods, and peppermint Avoid eating less than 3 hours before bed. Elevate the head of the bed 6 inches, or invest in a wedge pillow. Laying on left side with head elevated may help alleviate reflux symptoms. documented in this encounter [facility] 02-01-2024 History of Presen t illness Narrative CHIEF COMPLAINT: Patient presents with: Recheck: IBS with constipation-has been having diarrhea but thinks she had a stomach bug HPI Greyson Rojas is a 54 year old female here today for Recheck (IBS with constipation-has been having diarrhea but thinks she had a stomach bug ) Patient tells me that she think she picked up a stomach bug last week. Has been dealing with diarrhea, seeing improvement starting yesterday. Has cut back on IBSRELA and stool softener. Notes recently has been improving with her bowel movements. Stopped her fiber supplement which has helped. Notes she has been dealing with chronic cough. Notes that she was told it was her GERD. 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 Has been cutting back on her gluten which really helps symptoms. Last OV with me 07/31/2023: Assessment/Plan (K58.1) Irritable bowel syndrome with constipation (primary encounter diagnosis) 1. Irritable bowel syndrome with constipation -- Patient doing much better on IBSRELA BID. Notes that her pain and bloat is improved. Does not need refills. -- Will check Celiac comprehensive panel as she is getting worsening constipation, bloat with gluten foods. - CELIAC COMPREHENSIVE PANEL; Future Follow up in office 6 months/PRN. Current Outpatient Medications Medication Sig meloxicam (MOBIC) 7.5 mg tablet triamcinolone (KENALOG) 0.025 % cream PLEASE SEE ATTACHED FOR DETAILED DIRECTIONS omeprazole (PRILOSEC) 20 mg capsule TAKE 1 CAPSULE ONCE DAILY denosumab (PROLIA SUBCUTANEOUS) rosuvastatin (CRESTOR) 5 mg tablet Take 1 tablet by mouth daily at bedtime. tenapanor (IBSRELA) 50 mg tablet Take 1 tablet (50 mg) by mouth two times a day with meals. venlafaxine ER (EFFEXOR XR) 37.5 mg 24 hr capsule TAKE 1 CAPSULE ONCE DAILY loratadine 10 mg cap Take by mouth. KRILL OIL ORAL Take 800 mg by mouth once daily. GEMTESA 75 mg tablet Take 75 mg by mouth once daily. COMPRESSION SLEEVE as directed. Breast cancer. 20-30 mmHg mecobalamin (B12 ACTIVE ORAL) Take 1 tablet by mouth once daily. CALCIUM CARBONATE/VITAMIN D3 (VITAMIN D-3 ORAL) Take by mouth twice daily. No current facility-administered medications for this visit. Facility-Administered Medications Ordered in Other Visits Medication Dose Route Frequency lidocaine (PF) 10 mg/mL (1 %) 1-2 mg injection (XYLOCAINE) 0.1-0.2 mL INTRADERMAL PRN lactated ringers iv infusion 30 mL/hr INTRAVENOUS CONTINUOUS ALLERGIES Allergen Reactions Penicillins Hives Other reaction(s): hives all over body Nickel Rash Social History Tobacco Use Smoking status: Never Smokeless tobacco: Never Vaping Use Vaping Use: Never used Substance Use Topics Alcohol use: No Drug use: No PAST MEDICAL HISTORY Diagnosis Date Anemia, unspecified iron deficiency Breast cancer (HCC) 08/2017 Breast mass 06/2017 right breast Diffuse cystic mastopathy Helicobacter pylori infection Hiatal hernia History of prolapse of bladder Major depressive disorder, single episode, unspecified 1999 depressed year after 3rd child: treated for 1 year with Zoloft Meniere disease Dr. Marie ENT Panic disorder without agoraphobia periodic symptoms PAST SURGICAL HISTORY Procedure Laterality Date BREAST RECONSTRUCTION implants removed and replaced BX BREAST W/DEVICE 1ST LESION ULTRASOUND GUID Right 06/12/2017 3 nodules; 5cm, 3cm, 3cm COLONOSCOPY 03/16/2023 COLONOSCOPY FLX DX W/COLLJ SPEC WHEN PFRMD 03/01/2018 Colonoscopy CYSTOCELE REPAIR 01/07/2024 EGD N/A 11/05/2021 FOOT SURGERY HX Left 1981 Arch reshaping HIP SURGERY HX 01/08/2022 torn labrum, reshaped femoral head LAPAROSCOPIC SALPING/OOPHORECTOMY Right 02/24/2019 Dr. Jasmin Sosa MASTECTOMY, SIMPLE, COMPLETE Bilateral 08/18/2017 Dr. Johnson (reconstruction), Dr. 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 Sosa-[facility] TOTAL ABD HYSTERECTOMY+BLAD REPR N/A 2020 left ovary removed; Dr. Sosa-[facility]- total hysterectomy with rectocele and bladder sling TOTAL KNEE REPLACEMENT Left 07/24/2023 FAMILY HISTORY Problem Relation Age of Onset Cancer Mother melanoma Hypertension Mother Lipids Mother Breast Cancer Mother 63 lumpectomy, radiation, anastrozole x 5 years Diabetes Mother Arthritis Father Lipids Father High Triglycerides Heart Father ICD/pacer, CHF/s/p VT (cause of ) Diabetes Father Osteoporosis Sister Diabetes Sister Lipids Sister Osteoporosis Sister other (hydrocephalus) Sister other (spina bifida) Sister Hypertension Brother Osteoporosis Maternal Grandmother Colon Cancer Paternal Grandmother Cancer Paternal Grandfather HCC-EtOH abuse No Known Problems Daughter other (POTS) Daughter 28 other (PCOS) Daughter 25 Heart Maternal Uncle enlarged heart: cardiomyopathy other (ETOH) Paternal Uncle liver, cause of Breast Cancer Maternal cousin 49 REVIEW OF SYSTEMS Review of Systems Respiratory: Positive for cough. Gastrointestinal: Positive for abdominal distention, diarrhea and nausea. All other systems reviewed and are negative. PHYSICAL EXAM BP 116/76 Pulse 73 Ht 5' 2 (1.58m) Wt 134 lb 14.4 oz (61.2kg) LMP 06/08/2020 BMI 24.67 kg/(m^2). Physical Exam Constitutional: Appearance: Normal appearance. HENT: Head: Normocephalic and atraumatic. Eyes: General: No scleral icterus. Extraocular Movements: Extraocular movements intact. Conjunctiva/sclera: Conjunctivae normal. Pupils: Pupils are equal, round, and reactive to light. Cardiovascular: Rate and Rhythm: Normal rate and regular rhythm. Pulses: Normal pulses. Heart sounds: Normal heart sounds. Pulmonary: Effort: Pulmonary effort is normal. Breath sounds: Normal breath sounds. Abdominal: General: Abdomen is flat. Bowel sounds are normal. Palpations: Abdomen is soft. Tenderness: There is no abdominal tenderness. Musculoskeletal: General: Normal range of motion. Cervical back: Normal range of motion and neck supple. Skin: General: Skin is warm and dry. Coloration: Skin is not jaundiced. Neurological: General: No focal deficit present. Mental Status: She is alert and oriented to person, place, and time. Psychiatric: Mood and Affect: Mood normal. Behavior: Behavior normal. Thought Content: Thought content normal. Judgment: Judgment normal. Assessment/Plan (K58.1) Irritable bowel syndrome with constipation (primary encounter diagnosis) (K21.9) Gastroesophageal reflux disease, unspecified whether esophagitis present (K90.41) NCGS (non-celiac gluten sensitivity) 1. Irritable bowel syndrome with constipation -- Doing well on IBSRELA and stool softeners. Does not need refills today. 2. Gastroesophageal reflux disease, unspecified whether esophagitis present -- Notes chronic cough, was told by Pulmonology that it was GERD related. -- Continue on Omeprazole 20 mg. Okay to use Pepcid up to 40 mg PRN Recommend high protein, high fiber diet. Promotion of salivation through oral lozenges/chewing gum Drink plenty of water Avoid NSAIDs (such as Advil, Ibuprofen, Excedrin, Mobic), tobacco, alcohol, carbonated beverages, caffeine, chocolate, tomato based sauces, spicy/fatty foods, and peppermint Avoid eating less than 3 hours before bed. Elevate the head of the bed 6 inches, or invest in a wedge pillow. Laying on left side with head elevated may help alleviate reflux symptoms. - EGD DIAGNOSTIC; Future 3. NCGS (non-celiac gluten sensitivity) -- Seeing some improvement with a low gluten diet. -- EGD for further evaluation - EGD DIAGNOSTIC; Future Follow up in office 6 months/PRN. Recommended to please call office/go to ER if fever, chills, chest pain, SOB, diarrhea, nausea, emesis, worsening abdominal pain, dehydration occurs I spent a total of 20 minutes on the date of the service which included preparing to see the patient, [id number] patient care, completing clinical documentation, obtaining and/or reviewing separately obtained history, performing a medically appropriate examination, counseling and educating the patient/family/caregiver, and ordering medications, tests, or procedures. Ceci Luna PA-C February 01, 2024 11:08 AM documented in this encounter [facility] 01-26-2024 History of Presen t illness Narrative [facility] MEDICINE NEW EVALUATION January 26, 2024 11:20 AM HEMIFACIAL SPASM HPI Onset: - She reports that she has had stress twitching in eyes in the past, but recently the episodes are predominantly LEFT and have been occuring since May 2023 on a consistent basis. She also feels a sensation of her face drawing upwards in the upper eyelid region. Few to any symptoms on the right. She also notes that her lip pulls upwards in the middle, and is visible to her. Side: left Duration: Episodes last less than a minute, but can recur randomly over the course of the day. Triggers: none - Caffeine use is limited to morning cup of coffee History of MS: No History of Lyme disease: No History of shingles facial rash: No History of dental/oral surgery: No History of facial/plastic surgery: No PAST MEDICAL HISTORY Diagnosis Date Anemia, unspecified iron deficiency Breast cancer (HCC) 08/2017 Breast mass 06/2017 right breast Diffuse cystic mastopathy Helicobacter pylori infection Hiatal hernia History of prolapse of bladder Major depressive disorder, single episode, unspecified 1999 depressed year after 3rd child: treated for 1 year with Zoloft Meniere disease Dr. Marie ENT Panic disorder without agoraphobia periodic symptoms PAST SURGICAL HISTORY Procedure Laterality Date BREAST RECONSTRUCTION implants removed and replaced BX BREAST W/DEVICE 1ST LESION ULTRASOUND GUID Right 06/12/2017 3 nodules; 5cm, 3cm, 3cm COLONOSCOPY 03/16/2023 COLONOSCOPY FLX DX W/COLLJ SPEC WHEN PFRMD 03/01/2018 Colonoscopy CYSTOCELE REPAIR 01/07/2024 EGD N/A 11/05/2021 FOOT SURGERY HX Left 1981 Arch reshaping HIP SURGERY HX 01/08/2022 torn labrum, reshaped femoral head LAPAROSCOPIC SALPING/OOPHORECTOMY Right 02/24/2019 Dr. Jasmin Sosa MASTECTOMY, SIMPLE, COMPLETE Bilateral 08/18/2017 Dr. Johnson (reconstruction), Dr. 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 Sosa-[facility] TOTAL ABD HYSTERECTOMY+BLAD REPR N/A 2020 left ovary removed; Dr. Sosa-[facility]- total hysterectomy with rectocele and bladder sling TOTAL KNEE REPLACEMENT Left 07/24/2023 Current Outpatient Medications Medication Sig omeprazole (PRILOSEC) 20 mg capsule TAKE 1 CAPSULE ONCE DAILY denosumab (PROLIA SUBCUTANEOUS) rosuvastatin (CRESTOR) 5 mg tablet Take 1 tablet by mouth daily at bedtime. tenapanor (IBSRELA) 50 mg tablet Take 1 tablet (50 mg) by mouth two times a day with meals. venlafaxine ER (EFFEXOR XR) 37.5 mg 24 hr capsule TAKE 1 CAPSULE ONCE DAILY loratadine 10 mg cap Take by mouth. KRILL OIL ORAL Take 800 mg by mouth once daily. GEMTESA 75 mg tablet Take 75 mg by mouth once daily. COMPRESSION SLEEVE as directed. Breast cancer. 20-30 mmHg mecobalamin (B12 ACTIVE ORAL) Take 1 tablet by mouth once daily. CALCIUM CARBONATE/VITAMIN D3 (VITAMIN D-3 ORAL) Take by mouth twice daily. No current facility-administered medications for this visit. Facility-Administered Medications Ordered in Other Visits Medication Dose Route Frequency lidocaine (PF) 10 mg/mL (1 %) 1-2 mg injection (XYLOCAINE) 0.1-0.2 mL INTRADERMAL PRN lactated ringers iv infusion 30 mL/hr INTRAVENOUS CONTINUOUS ALLERGIES Allergen Reactions Penicillins Hives Other reaction(s): hives all over body Nickel Rash Social History Tobacco Use Smoking status: Never Smokeless tobacco: Never Vaping Use Vaping Use: Never used Substance Use Topics Alcohol use: No Drug use: No FAMILY HISTORY Problem Relation Age of Onset Cancer Mother melanoma Hypertension Mother Lipids Mother Breast Cancer Mother 63 lumpectomy, radiation, anastrozole x 5 years Diabetes Mother Arthritis Father Lipids Father High Triglycerides Heart Father ICD/pacer, CHF/s/p VT (cause of ) Diabetes Father Osteoporosis Sister Diabetes Sister Lipids Sister Osteoporosis Sister other (hydrocephalus) Sister other (spina bifida) Sister Hypertension Brother Osteoporosis Maternal Grandmother Colon Cancer Paternal Grandmother Cancer Paternal Grandfather HCC-EtOH abuse No Known Problems Daughter other (POTS) Daughter 28 other (PCOS) Daughter 25 Heart Maternal Uncle enlarged heart: cardiomyopathy other (ETOH) Paternal Uncle liver, cause of Breast Cancer Maternal cousin 49 PHYSICAL EXAMINATION 01/26/24 1100 BP: 125/78 Pulse: 74 Weight: 61.1 kg (134 lb 13 oz) Height: 157.5 cm (5' 2) General appearance: Well appearing, alert, in no acute distress, well-hydrated, well nourished. Skin: Skin color, texture, turgor normal, no suspicious rashes or lesions Head: Normocephalic, no masses, lesions, tenderness or abnormalities Eyes: Anicteric sclera. Pupils are equally round and reactive to light. Extraocular movements are intact. Fundi without papilledema. Oropharynx: Lips, mucosa, and tongue normal, teeth and gums normal, oropharynx normal Neck: Supple, no adenopathy; Lungs: Unlabored on room air Extremities: No deformities, edema, skin discoloration, clubbing or cyanosis. Good capillary refill. Musculoskeletal: No joint swelling, deformity, or tenderness Peripheral pulses: Capillary refill <2secs, strong peripheral pulses Neuro: Negative findings: speech normal, mental status intact, cranial nerves 2-12 intact, Romberg negative, muscle tone normal, muscle strength normal, finger to nose normal, reflexes normal and symmetric Clementina was seen today for facial twitch. Diagnoses and all orders for this visit: Hemifacial spasm of left side of face - MRI BRAIN WO/W IVCON; Future - iv contrast (will be provided with radiology test); MRI Brain Inject, intravenously, once for 1 dose.No IV access, insert saline lock prior to beginning of sedation, infusion, injection of imaging exam.Discontinue saline lock post exam. If Pt. has a central line or IVAD, may access for administration according to line specific nursing protocol.Once exam is complete flush line and de-access according to line specific nursing protocol in the MR contrast administration guidelines link - MRA BRAIN WO IVCON; Future - CONSULT TO NEUROLOGY; Future Other orders - CONSULT TO NEUROLOGY Pt is 53 year old female with LEFT hemifacial spasm. Needs MRI-Brain, MRA-Brain to r/o secondary diagnoses and surgical planning of any nerve/artery abutment on LEFT facial nerve. Return on PRN basis. She was scheduled with clinic--no headaches. Her hemifacial spasm would best be seen in movement disorders. I am happy to follow-up with her in the interim until she is established with neurology. Elias Hernandez MD January 26, 2024 4:05 PM documented in this encounter [facility] 01-26-2024 Telephone encounter Note Pt. informed via My Chart. [facility] Work Phone: 01-26-2024 Miscellaneous Notes Pt. informed via My Chart. Please let Greyson know that her liver ultrasound shows a benign cyst. We can reassess this in a year just to confirm no growth. Rossi Martinez APRN.FAHEEM documented in this encounter [facility] 01-26-2024 Telephone encounter Note Please let Greyson know that her liver ultrasound shows a benign cyst. We can reassess this in a year just to confirm no growth. Rossi Martinez APRN.CUSTOMER SALES SPECIALIST [facility] 01-20-2024 History of Presen t illness Narrative [facility] [address] [place] [address] [place] [id number] Dept: [phone] Dept Greyson Mcrae Crystal 1970 [id number] 01/20/2024 HISTORY OF PRESENT ILLNESS: Greyson is a 53 y.o. female here today for evaluation of her right foot- bilateral heel pain but right is worse then left Greyson states the problem has been present for about 1 year Greyson states the problem started gradually with no injuries occurring Greyson has tried or has been treated with the following: modifying her activity level and avoiding those activities which aggravate the problem and custom molded foot orthoses. 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 Review of Systems Surgical Risk Factors: Allergies to Metals or Latex: NO Have you been treated for a blood clot: NO Have you had a history of bleeding disorder: NO Have you had a history of Anesthetic problems: NO Do you have tendency to bruise easily: NO Do you experience prolonged or excessive bleeding from cuts or after surgery: NO General/Constitutional: General: no Cancer: NO Acute/Chronic Infections: NO HEENT/Neck: Problems with theThroat: NO Problems with the Eyes: NO Problems with the Ears: NO Problems with the Nose and Sinuses: NO Endocrine: Problems with Diabetes: NO Problems with Thyroid Disorder: NO Thorax: Problems with the Heart: NO Problems with the Lung: no Cardiovascular: Problems with Circulation: NO Problems with High Blood pressure: NO Gastrointestinal: Problems with Ulcers: NO Problems with the Liver: no Problems with Bowel Habits: NO Genitourinary: Problems with the Genitals: NO Urinary problems: NO Kidney disease or stones: NO Skin: Any general problems: NO Neurologic: Dizziness, blurred vision, headaches, problems with balance : NO Seizures or Stroke: NO Psychiatric: Emotional or Psychological disorders: NO Depression or Anxiety: no PAST MEDICAL HISTORY: Past Medical History: Diagnosis Date Anemia Breast cancer (HCC) Osteopenia Allergies Allergen Reactions Penicillins Hives Other Reaction(s): hives all over body Other reaction(s): hives all over body Nickel Rash PHYSICAL EXAM: Ht 1.6 m (5' 3) Wt 59 kg (130 lb) BMI 23.03 kg/m This is an age appropriate appearing female who is alert and oriented x 3. The patient appears well nourished. Psychiatric: The patient is able to verbalize normally and seems to have a good understanding of her situation. right lower extremity examination Lymphatic System: No areas of swelling are seen Vascular: Dorsalis pedis pulse: 2+ Posterior tibial pulse: 2+ Capillary refill is less than 3 seconds Skin/nails: Normal appearance, warm and dry Hair growth present on foot and toes Neurologic: Sensation intact to light touch throughout the foot and the ankle Muscle: Muscle strength testing: Anterior tibialis: 5/5 Posterior tibialis: 5/5 Peroneus brevis: 5/5 Peroneus longus: 5/5 Gastrocsoleus: 5/5 Tender to palpation at the plantar fascial origin and along the length of the plantar fascia. Heel squeeze is negative bilaterally. Compression of the tarsal tunnel did not reproduce symptoms. The Achilles tendon was nontender to palpation bilaterally. Gait and Station: Greyson is able to ambulate with a normal gait Greyson is able to stand unassisted and maintains balance RADIOGRAPHIC INTERPRETATION: 3 weightbearing views of both the right and left foot were obtained. Both the right and left foot show no signs of plantar calcaneal spurring. On the right side small area of calcification is noted at the Achilles tendon insertion. Longitudinal arch height is well-maintained bilaterally. No signs of arthrosis in the foot bilaterally. REVIEW OF RELATED PREVIOUS DOCUMENTATION: No documents related to the current problem(s) were reviewed or no documents were available for review. LABORATORY RESULT INTERPRETATION: No labs were reviewed/No labs available for review DIAGNOSIS: Diagnosis Plan 1. Bilateral plantar fasciitis External referral to Physical Therapy 2. Left foot pain XR foot 3+ views left MEDICAL DECISION MAKING: I had a discussion with Greyson to make sure she has a good understanding of the diagnoses/issues that I think are present today and understands the plan moving forward. Greyson was given a plantar fascial stretching program handout and the exercises were reviewed with her. I explained that it can take several months working on the stretches and exercises before benefit is noted but most patients improve with the program. If Greyson has any questions about the program she was instructed to call me. Greyson was given a referral to physical therapy today. I explained that if therapy is causing any problems then Greyson needs to discuss it with her therapist and if problems persist then she needs to call me. I explained that I have recommended therapy 2 times a week for 6 weeks. If Greyson fails to improve with the above-mentioned treatment she was instructed to call the office and we will schedule her to see primary care sports medicine for ultrasound-guided injection of the plantar fascia. Follow up if symptoms worsen or fail to improve, for call our office with any questions at [phone]. Electronically signed by Ryland Kelly MD [facility] Department of Orthopedic surgery 01/20/2024 9:14 AM Voice recognition was used for portions of this note and although it was reviewed prior to signing some incorrect words or phrases could be present. documented in this encounter [facility] 01-18-2024 History of Presen t illness Narrative Radiology Service Progress Note PATIENT NAME: Greyson Rojas DATE OF SERVICE: January 18, 2024 TIME: 11:23 AM PATIENT IDENTITY VERIFICATION COMPLETED USING TWO (2) IDENTIFIERS: Name and Date of confirmed by patient verbally. FALL SCREENING: Has the patient had 2 falls in the last year or 1 fall with injury or currently using an Ambulatory Assistive Device (Walker, Cane, Wheelchair, Crutches, etc.)? No PATIENT GENDER DATA: Female. status: : No status: NO. PATIENT RELEVANT IMPLANT DATA REVIEWED: Not Applicable PATIENT PRESENTS WITH AN IMPLANTABLE OR ATTACHED HEARING AID SPECIALIST: No RADIOLOGY DEPARTMENT: Ultrasound PERIPHERAL IV DATA: Not applicable SIGNED BY: Juana Marques RDMS January 18, 2024 11:23 AM documented in this encounter [facility] 01-15-2024 History of Presen t illness Narrative Images from the original note were not included. Pulmonary Medicine NEW PULMONARY OUTPATIENT CONSULTATION Referring Physician: Rossi Martinez APRN* Date of service: 01/15/24 History of Present Illness: 53F here for chronic cough - 4 yrs, stable. 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 Never had lung disease as a child or adulthood. GERD taking Ppi during the day but wakes up coughing at night. Never smoker. Sensitive to smell and chemicals used at work to disinfect but symptoms are similar at home and at work. mMRC: Date mMRC 01/15/24 0 Review of Systems: Unless Noted Above Constitutional: No fevers, chills, fatigue, no involuntary weight loss HEENT: No vision or hearing changes Lymphadenopathy: No enlarged lymph glands under jaw or in axillae Respiratory: As Above Cardiac: No chest pain or palpitations, no lower extremity edema Gastrointestinal: No dysphagia nausea, vomiting, pain, or abnormal bowel patterns/bloody stool. Genitourinary: No dysuria or increased urinary frequency; no hematuria Integumentary: No rash or hair changes Psychiatric: No suicidal ideations Endocrine: No sweats or increased thirst Allergic/Immunologic: No allergic triggers. Past Medical & Surgical History: PAST MEDICAL HISTORY Diagnosis Date Anemia, unspecified iron deficiency Breast cancer (HCC) 08/2017 Breast mass 06/2017 right breast Diffuse cystic mastopathy Helicobacter pylori infection Hiatal hernia History of prolapse of bladder Major depressive disorder, single episode, unspecified 1999 depressed year after 3rd child: treated for 1 year with Zoloft Meniere disease Dr. Marie ENT Panic disorder without agoraphobia periodic symptoms PAST SURGICAL HISTORY Procedure Laterality Date BREAST RECONSTRUCTION implants removed and replaced BX BREAST W/DEVICE 1ST LESION ULTRASOUND GUID Right 06/12/2017 3 nodules; 5cm, 3cm, 3cm COLONOSCOPY 03/16/2023 COLONOSCOPY FLX DX W/COLLJ SPEC WHEN PFRMD 03/01/2018 Colonoscopy CYSTOCELE REPAIR 01/07/2024 EGD N/A 11/05/2021 FOOT SURGERY HX Left 1981 Arch reshaping HIP SURGERY HX 01/08/2022 torn labrum, reshaped femoral head LAPAROSCOPIC SALPING/OOPHORECTOMY Right 02/24/2019 Dr. Jasmin Sosa MASTECTOMY, SIMPLE, COMPLETE Bilateral 08/18/2017 Dr. Johnson (reconstruction), Dr. 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 Sosa-[facility] TOTAL ABD HYSTERECTOMY+BLAD REPR N/A 2020 left ovary removed; Dr. Sosa-[facility]- total hysterectomy with rectocele and bladder sling TOTAL KNEE REPLACEMENT Left 07/24/2023 Social History: Smoking history: reports that she has never smoked. She has never used smokeless tobacco. Drug Use: No Family History: FAMILY HISTORY Problem Relation Age of Onset Cancer Mother melanoma Hypertension Mother Lipids Mother Breast Cancer Mother 63 lumpectomy, radiation, anastrozole x 5 years Diabetes Mother Arthritis Father Lipids Father High Triglycerides Heart Father ICD/pacer, CHF/s/p VT (cause of ) Diabetes Father Osteoporosis Sister Diabetes Sister Lipids Sister Osteoporosis Sister other (hydrocephalus) Sister other (spina bifida) Sister Hypertension Brother Osteoporosis Maternal Grandmother Colon Cancer Paternal Grandmother Cancer Paternal Grandfather HCC-EtOH abuse No Known Problems Daughter other (POTS) Daughter 28 other (PCOS) Daughter 25 Heart Maternal Uncle enlarged heart: cardiomyopathy other (ETOH) Paternal Uncle liver, cause of Breast Cancer Maternal cousin 49 Medications: Current Outpatient Medications Medication Sig omeprazole (PRILOSEC) 20 mg capsule TAKE 1 CAPSULE ONCE DAILY denosumab (PROLIA SUBCUTANEOUS) rosuvastatin (CRESTOR) 5 mg tablet Take 1 tablet by mouth daily at bedtime. tenapanor (IBSRELA) 50 mg tablet Take 1 tablet (50 mg) by mouth two times a day with meals. venlafaxine ER (EFFEXOR XR) 37.5 mg 24 hr capsule TAKE 1 CAPSULE ONCE DAILY loratadine 10 mg cap Take by mouth. KRILL OIL ORAL Take 800 mg by mouth once daily. GEMTESA 75 mg tablet Take 75 mg by mouth once daily. COMPRESSION SLEEVE as directed. Breast cancer. 20-30 mmHg mecobalamin (B12 ACTIVE ORAL) Take 1 tablet by mouth once daily. CALCIUM CARBONATE/VITAMIN D3 (VITAMIN D-3 ORAL) Take by mouth twice daily. EYALURONIC ACID 10 mg/mL(mw 2.4 -3.6 million) injection (Patient not taking: Reported on 01/15/2024) No current facility-administered medications for this visit. Facility-Administered Medications Ordered in Other Visits Medication Dose Route Frequency lidocaine (PF) 10 mg/mL (1 %) 1-2 mg injection (XYLOCAINE) 0.1-0.2 mL INTRADERMAL PRN lactated ringers iv infusion 30 mL/hr INTRAVENOUS CONTINUOUS Physical Examination: Vital Signs: Blood pressure 95/60, pulse 87, temperature 36.3 C (97.4 F), temperature source Temporal Artery, resp. rate 16, height 160 cm (5' 2.99), weight 60.8 kg (134 lb), last menstrual period 06/08/2020, SpO2 100%. General: The patient appears in no acute distress. Alert and oriented to person, place, time, and situation. Calm and cooperative with physical exam. HEENT: Normocephalic, normal conjunctiva, moist oral mucosa, PERRL, nares patent, good dentition, appropriate rise and fall of uvula and soft palate Neck: TM No JVD Chest: Clear to auscultation bilaterally, No wheezing, rhonchi, or rales. Normal work of breathing Cardiac: Regular rhythm, normal rate, S1S2 auscultated Abdomen: Soft, non-tender, non-distended, positive bowel sounds in all four quadrants Skin: No rashes, open wounds, or bruising. Warm, dry, well-perfused. Extremities: no edema, no cyanosis Neuro: Grossly moving all 4 limbs Psych: Mood stable. Review of Data: Reviewed in EMR and interpreted by myself CT: 12/24/23 RESULT: Limitations: None. Lines, tubes, and devices: None. Lung parenchyma and airways: The central airways are patent. There is biapical scarring, with subpleural opacities, likely post inflammatory. Calcified granuloma demonstrated in the anterior right upper lobe, series 7 image 76. No suspicious lung nodules. No masses. No consolidations. Pleural space: No pleural effusion or pneumonia. No pleural thickening. Lower neck, lymph nodes, and mediastinum: The imaged thyroid gland is normal. No supraclavicular, axillary or mediastinal lymphadenopathy. There are calcified lymph nodes in the mediastinum and right hilar region, likely secondary to remote granulomatous disease. Heart, pericardium, and thoracic vessels: The thoracic aorta and main pulmonary artery are normal in caliber. The cardiac chambers are normal in size. No coronary artery atherosclerotic calcifications are noted, although the study is not optimized for coronary assessment. No pericardial effusion or thickening. Bones and soft tissues: The spine shows degenerative changes. No destructive bone lesion. Status post bilateral mastectomies, with breast implants. Upper abdomen: Limited study through the upper abdomen demonstrates a 1 cm low-attenuation lesion or cyst in the right liver. There are multiple calcified granulomas in the spleen. Localizer images: No additional findings. Pulmonary Function Testing: Date FVC % Pred. FEV1 % Pred. FEV1/FVC TLC % Pred. DL % Pred. 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 Never had lung disease as a child or adulthood. GERD taking Ppi during the day but wakes up coughing at night. History, PFT, FeNO, CT not indicative of obtructive a/way disease. Prior healed granulomas are minor and are not the cause of cough Take Ppi BID, lifestyle modification techniques discussed. She was advised to go for voice retraining and limiting usage of VC to reduce VC strain. F/u with PCP, ENT and GI for optimization of GERD, voice retraining. Patient was agreeable to plan, and all questions were answered accordingly. Signed: Aiyana Edmonds MD, MS, FCCP Staff Physician Respiratory [place] [facility] 01/15/2024 1:14 PM Thank you for entrusting the care of this patient to Pulmonary Medicine. The patient will be returning to you for your continued care. We are happy to collaborate with you in any way. Please contact us if we can be of any assistance. Pulmonary Medicine documented in this encounter [facility] 01-13-2024 Procedure note Associated Ord er(s): NITRIC OXIDE, EXHALED RESPIRATORY THERAPY ORAL EXHALED NITRIC OXIDE SERVICE DATE: 01/13/2024 SERVICE TIME: 3:07 PM Oral Exhaled Nitric Oxide measurement: <5.0 (ppb) Normal: Adult 5-20 ppb, pediatric (<12 years) 5-15 ppb High Normal / Increased: Adult 20-35 ppb, pediatric (<12 years) 15-25 ppb Moderately raised exhaled Nitric Oxide may indicate underlying inflammation, but note that: Cold and influenza can raise exhaled Nitric Oxide and some patients have higher baseline exhaled Nitric Oxide levels than others. High: Adult >35 ppb, pediatric (<12 years) >25 ppb Indicative of ongoing eosinophilic inflammation. Symptomatic patient likely to respond to steroids. Possible causes (if already on steroids): Poor compliance, recent allergen exposure, steroid dose inadequate, and steroid resistance. Note that not all patients with high exhaled nitric oxide levels display symptoms. Oral Exhaled Nitric Oxide measurement (Previous Encounters) Test Date Oral Exhaled Nitric Oxide (ppb) 01/13/2024 <5.0 NAME: GURPREET Simental PATIENT NAME: Greyson Rojas DATE: January 13, 2024 TIME: 3:07 PM [facility] 01-13-2024 Procedure note Associated Ord er(s): NITRIC OXIDE, EXHALED RESPIRATORY THERAPY ORAL EXHALED NITRIC OXIDE SERVICE DATE: 01/13/2024 SERVICE TIME: 3:07 PM Oral Exhaled Nitric Oxide measurement: <5.0 (ppb) Normal: Adult 5-20 ppb, pediatric (<12 years) 5-15 ppb High Normal / Increased: Adult 20-35 ppb, pediatric (<12 years) 15-25 ppb Moderately raised exhaled Nitric Oxide may indicate underlying inflammation, but note that: Cold and influenza can raise exhaled Nitric Oxide and some patients have higher baseline exhaled Nitric Oxide levels than others. High: Adult >35 ppb, pediatric (<12 years) >25 ppb Indicative of ongoing eosinophilic inflammation. Symptomatic patient likely to respond to steroids. Possible causes (if already on steroids): Poor compliance, recent allergen exposure, steroid dose inadequate, and steroid resistance. Note that not all patients with high exhaled nitric oxide levels display symptoms. Oral Exhaled Nitric Oxide measurement (Previous Encounters) Test Date Oral Exhaled Nitric Oxide (ppb) 01/13/2024 <5.0 NAME: GURPREET Simental PATIENT NAME: Greyson Rojas DATE: January 13, 2024 TIME: 3:07 PM documented in this encounter [facility] 01-13-2024 History of Presen t illness Narrative PULM FUNCTION: Provider: Javier Edmonds MD Assisting Tech: Amira Malcolm RPFT Exhaled Nitric Oxide: 1 documented in this encounter [facility] 01-08-2024 Telephone encounter Note This was addressed by FAHEEM Richey. Izabella Holland APRN.CNP [facility] Work Phone: 01-08-2024 Miscellaneous Notes This was addressed by FAHEEM Richey. Izabella Holland APRN.CNP Images from the original note were not included. Please see pt message regarding CT of chest ordered by RS. Pt requesting Dr. Sanches review. ELKE ScanlonJust now (8:37 AM) ABEBA Mcrae, I will forward your message to Dr. Sanches as well. Eula Narayanan MA This [employer] message has not been read. Greyson Howard32 minutes ago (8:05 AM) I am requesting that Dr. Sanches look at my results and get back to me. That is why I emailed her in the first place. Please make sure she reads this request. Thanks Clementina Mcrae You37 minutes ago (8:00 AM) So no one can answer my questions till then. Just wondering why Dr. Sanches can t answer the question even if she didn t order it. She is my primary doctor. Clementina Mcrae45 minutes ago (7:51 AM) ABEBA Mcrae, It looks like Rossi ordered the CT of chest. Rossi is out until 01/04. Thank you. ELKE Scanlon P Wstr [facility] My Chart Rx Pool (supporting Gallo Sanches DO)11 hours ago (8:41 PM) I was wondering if you could tell me what the results mean when it said I have Remote granulomatous disease.I was also concerned about multiple granulomas in my spleen. Thanks! Clementina Rojas documented in this encounter [facility] 01-07-2024 Telephone encounter Note Responded to by myself today in a separate encounter. Closing this encounter. Rossi Martinez APRN.CNP [facility] Work Phone: 01-07-2024 Miscellaneous Notes Responded to by myself today in a separate encounter. Closing this encounter. Rossi Martinez APRN.CNP Turned into TE for Sanches to review per pt request. Eula Narayanan MA Please see pt message regarding CT of chest. Eula Narayanan MA documented in this encounter [facility] 01-07-2024 Telephone encounter Note Pt informed via [employer] message Eula Narayanan MA [facility] 01-07-2024 Miscellaneous Notes Pt informed via [employer] message Eula Narayanan MA The remote granulomatosis disease means some left over inflammation from usually an illness and is benign. A low attenuation cyst is almost always benign, but we can do an ultrasound to look at things closer. Please assist her to schedule this. Rossi Martinez APRN.CNP Please review and advise. Pt has been sending MC since 12/31/23 to PCP with no response. Shena Hood MA documented in this encounter [facility] 01-07-2024 Telephone encounter Note The remote granulomatosis disease means some left over inflammation from usually an illness and is benign. A low attenuation cyst is almost always benign, but we can do an ultrasound to look at things closer. Please assist her to schedule this. Rossi Martinez APRN.FAHEEM [facility] 01-06-2024 Telephone encounter Note Please review and advise. Pt has been sending MC since 12/31/23 to PCP with no response. Shena Hood MA [facility] 01-01-2024 Telephone encounter Note Images from the original note were not included. Please see pt message regarding CT of chest ordered by RS. Pt requesting Dr. Sanches review. ELKE Scanlon now (8:37 AM) ABEBA Mcrae, I will forward your message to Dr. Sanches as well. Eula Narayanan MA This [employer] message has not been read. Greyson Mcrae You32 minutes ago (8:05 AM) I am requesting that Dr. Sanches look at my results and get back to me. That is why I emailed her in the first place. Please make sure she reads this request. Danny Mcrae You37 minutes ago (8:00 AM) So no one can answer my questions till then. Just wondering why Dr. Sanches can t answer the question even if she didn t order it. She is my primary doctor. Clementina Mcrae45 minutes ago (7:51 AM) ABEBA Jaegere, It looks like Rossi ordered the CT of chest. Rossi is out until 01/04. Thank you. Eula Narayanan MA Greyson Mcrae [place] P [facility] My Chart Rx Pool (supporting Gallo Sanches DO)11 hours ago (8:41 PM) I was wondering if you could tell me what the results mean when it said I have Remote granulomatous disease.I was also concerned about multiple granulomas in my spleen. Thanks! Clementina Rojas [facility] 01-01-2024 Telephone encounter Note Turned into TE for Myron to review per pt request. Eula Narayanan MA T [facility] 01-01-2024 Telephone encounter Note Please see pt message regarding CT of chest. Eula Narayanan MA T [facility] 01-01-2024 Telephone encounter Note Patient phones requesting refills as follows: Requested Prescriptions Pending Prescriptions Disp Refills omeprazole (PRILOSEC) 20 mg capsule [Pharmacy Med Name: OMEPRAZOL RX CAP 20MG] 90 capsule 2 Sig: TAKE 1 CAPSULE ONCE DAILY Please review and advise. Jessica Irving MA [facility] 01-01-2024 Miscellaneous Notes Patient phones requesting refills as follows: Requested Prescriptions Pending Prescriptions Disp Refills omeprazole (PRILOSEC) 20 mg capsule [Pharmacy Med Name: OMEPRAZOL RX CAP 20MG] 90 capsule 2 Sig: TAKE 1 CAPSULE ONCE DAILY Please review and advise. Jessica Irving MA documented in this encounter [facility] 12-24-2023 History of Presen t illness Narrative PULM FUNCTION SMARTBLOCK: Provider: Rossi Martinez APRN.CUSTOMER SALES SPECIALIST Assisting Tech: Amira Malcolm RPFT Spirometry w/BD: 1 documented in this encounter [facility] 12-24-2023 History of Presen t illness Narrative Radiology Service Progress Note PATIENT NAME: Greyson Rojas DATE OF SERVICE: December 24, 2023 TIME: 8:36 AM PATIENT IDENTITY VERIFICATION COMPLETED USING TWO (2) IDENTIFIERS: Name and Date of confirmed by patient verbally. FALL SCREENING: Has the patient had 2 falls in the last year or 1 fall with injury or currently using an Ambulatory Assistive Device (Walker, Cane, Wheelchair, Crutches, etc.)? No PATIENT GENDER DATA: Female. status: : No status: NO. PATIENT RELEVANT IMPLANT DATA REVIEWED: Yes PATIENT PRESENTS WITH AN IMPLANTABLE OR ATTACHED HEARING AID SPECIALIST: No RADIOLOGY DEPARTMENT: CT; Exam(s) Completed: Chest PERIPHERAL IV DATA: Not applicable SIGNED BY: RT Milton(R) December 24, 2023 8:36 AM documented in this encounter [facility] 12-02-2023 Telephone encounter Note 1st attempt--left VM [facility] 12-02-2023 Miscellaneous Notes 1st attempt--left VM Please call patient and assist her to schedule with neurology per order from today 12/01/2023. Rossi Martinez APRN.CNP documented in this encounter [facility] 12-01-2023 Telephone encounter Note Please obtain records from Dr. Jose Angel shea dr on patient for the past 6-8 months for my review. Rossi Martinez APRN.CNP [facility] Work Phone: 12-01-2023 Miscellaneous Notes Please obtain records from Dr. Jose Angel shea dr on patient for the past 6-8 months for my review. Rossi Martinez APRN.CNP documented in this encounter [facility] 12-01-2023 History of Presen t illness Narrative Radiology Service Progress Note PATIENT NAME: Greyson Rojas DATE OF SERVICE: December 01, 2023 TIME: 4:41 PM PATIENT IDENTITY VERIFICATION COMPLETED USING TWO (2) IDENTIFIERS: Name and Date of confirmed by patient verbally. FALL SCREENING: Has the patient had 2 falls in the last year or 1 fall with injury or currently using an Ambulatory Assistive Device (Walker, Cane, Wheelchair, Crutches, etc.)? No PATIENT GENDER DATA: Female. status: : No status: NO. PATIENT RELEVANT IMPLANT DATA REVIEWED: Yes PATIENT PRESENTS WITH AN IMPLANTABLE OR ATTACHED HEARING AID SPECIALIST: No RADIOLOGY DEPARTMENT: General X-ray: Exam(s) Completed: Chest X-Ray PERIPHERAL IV DATA: Not applicable SIGNED BY: RT Vikash(R) December 01, 2023 4:41 PM documented in this encounter [facility] 12-01-2023 Telephone encounter Note Please call patient and assist her to schedule with neurology per order from today 12/01/2023. Rossi Martinez APRN.CUSTOMER SALES SPECIALIST [facility] Work Phone: 12-01-2023 History of Presen t illness Narrative Chief Complaint Patient presents with: Eye Problem: Left eye twitching, droopy eyelids, constant since Jun 2023. HPI Greyson Rojas is a 53 year old female who presents here today for Above Complaints.. Left eye-twitching since June. Comes and goes all day long. Sometimes can just feel it, other times can feel and see it. Sometimes can throw her vision off a bit. Has spoken to her eye dr who is following her, has been told dry eyes, stress, etc. Is more to her upper eyelid and a little bit to her lateral eyelid. Is not painful. Does wear contacts, but this has been for years, nothing new. Persistent dry cough for about a year. Cannot laugh or deep breathe without having a coughing fit. Denies CP, SOB. Past medical history, appointments, medications, allergies reviewed. Previous Medical History PAST MEDICAL HISTORY Diagnosis Date Anemia, unspecified iron deficiency Breast cancer (HCC) 08/2017 Breast mass 06/2017 right breast Diffuse cystic mastopathy Helicobacter pylori infection Hiatal hernia Major depressive disorder, single episode, unspecified 1999 depressed year after 3rd child: treated for 1 year with Zoloft Meniere disease Dr. Marie ENT Panic disorder without agoraphobia periodic symptoms Previous Surgical History PAST SURGICAL HISTORY Procedure Laterality Date BREAST RECONSTRUCTION implants removed and replaced BX BREAST W/DEVICE 1ST LESION ULTRASOUND GUID Right 06/12/2017 3 nodules; 5cm, 3cm, 3cm COLONOSCOPY 03/16/2023 COLONOSCOPY FLX DX W/COLLJ SPEC WHEN PFRMD 03/01/2018 Colonoscopy EGD N/A 11/05/2021 FOOT SURGERY HX Left 1982 Arch reshaping HIP SURGERY HX 01/08/2022 torn labrum, reshaped femoral head LAPAROSCOPIC SALPING/OOPHORECTOMY Right 02/24/2019 Dr. Jasmin Sosa MASTECTOMY, SIMPLE, COMPLETE Bilateral 08/18/2017 Dr. Johnson (reconstruction), Dr. 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 Sosa-[facility] TOTAL ABD HYSTERECTOMY+BLAD REPR N/A 2020 left ovary removed; Dr. Sosa-[facility]- total hysterectomy with rectocele and bladder sling TOTAL KNEE REPLACEMENT Left 07/24/2023 Family History FAMILY HISTORY Problem Relation Age of Onset Cancer Mother melanoma Hypertension Mother Lipids Mother Breast Cancer Mother 63 lumpectomy, radiation, anastrozole x 5 years Diabetes Mother Arthritis Father Lipids Father High Triglycerides Heart Father ICD/pacer, CHF/s/p VT (cause of ) Diabetes Father Osteoporosis Sister Diabetes Sister Lipids Sister Osteoporosis Sister other (hydrocephalus) Sister other (spina bifida) Sister Hypertension Brother Osteoporosis Maternal Grandmother Colon Cancer Paternal Grandmother Cancer Paternal Grandfather HCC-EtOH abuse No Known Problems Daughter other (POTS) Daughter 28 other (PCOS) Daughter 25 Heart Maternal Uncle enlarged heart: cardiomyopathy other (ETOH) Paternal Uncle liver, cause of Breast Cancer Maternal cousin 49 Patient Allergies ALLERGIES Allergen Reactions Penicillins Hives Other reaction(s): hives all over body Nickel Rash Current Medications Current Outpatient Medications on File Prior to Visit Medication Sig denosumab (PROLIA SUBCUTANEOUS) rosuvastatin (CRESTOR) 5 mg tablet Take 1 tablet by mouth daily at bedtime. tenapanor (IBSRELA) 50 mg tablet Take 1 tablet (50 mg) by mouth two times a day with meals. venlafaxine ER (EFFEXOR XR) 37.5 mg 24 hr capsule TAKE 1 CAPSULE ONCE DAILY EYALURONIC ACID 10 mg/mL(mw 2.4 -3.6 million) injection loratadine 10 mg cap Take by mouth. KRILL OIL ORAL Take 800 mg by mouth once daily. omeprazole (PRILOSEC) 20 mg capsule Take 1 capsule by mouth once daily. GEMTESA 75 mg tablet Take 75 mg by mouth once daily. COMPRESSION SLEEVE as directed. Breast cancer. 20-30 mmHg mecobalamin (B12 ACTIVE ORAL) Take 1 tablet by mouth once daily. CALCIUM CARBONATE/VITAMIN D3 (VITAMIN D-3 ORAL) Take by mouth twice daily. meloxicam (MOBIC) 7.5 mg tablet Take 1 tablet by mouth every 12 hours. oxyCODONE ir (OXYIR) 5 mg capsule 1-2 BY MOUTH EVERY 4-6 HOURS NEEDED Lactobacillus acidophilus (PROBIOTIC ORAL) Take by mouth. (Patient not taking: Reported on 10/07/2023) Current Facility-Administered Medications on File Prior to Visit Medication lidocaine (PF) 10 mg/mL (1 %) 1-2 mg injection (XYLOCAINE) lactated ringers iv infusion Social History Social History Tobacco Use Smoking status: Never Smokeless tobacco: Never Vaping Use Vaping Use: Never used Substance Use Topics Alcohol use: No Drug use: No Review of Symptoms REVIEW OF SYSTEMS See HPI, otherwise negative EXAM: BP 108/70 (BP Site: Left Arm, BP Position: Sitting, BP Cuff Size: Regular Adult) Pulse 73 Wt 61.1 kg (134 lb 12.8 oz) LMP 06/08/2020 (Approximate) SpO2 98% BMI 24.25 kg/m General Appearance: Well appearing, alert, in no acute distress, well-hydrated, well nourished.. Head: Normocephalic, no masses, lesions, tenderness or abnormalities. Eyes: Anicteric sclera. Pupils are equally round and reactive to light. Extraocular movements are intact. . Ears: External ears normal, canals clear. Oropharynx: Lips, mucosa, and tongue normal, teeth and gums normal, oropharynx normal. Neck: Supple, no adenopathy; thyroid symmetric, normal size, no bruits. Lungs: Lungs clear to auscultation. No wheezing, rhonchi, rales.. Heart: RRR without murmur, gallop, or rubs. No ectopy. Lymph Nodes: No cervical lymphadenopathy and No supraclavicular lymphadenopathy. Psychiatric: pleasant, cooperative. Health Maintenance List Hepatitis B Vaccine(2 of 3 - 19+ 3-dose series) due on 07/07/2008 DTaP,Tdap,Td Vaccine(2 - Tdap) due on 05/21/2014 Pap Testing due on 03/19/2023 HPV Testing due on 03/19/2023 Covid-19 Vaccine( season) Never done Influenza Vaccine(Season Ended) due on 04/03/2024 Diabetes Screening due on 11/25/2026 Colorectal Cancer Screening due on 03/16/2028 Lipid Screening due on 11/25/2028 Hepatitis C Screening Completed HIV Screening Completed Shingrix Vaccine Completed HPV Vaccine Aged Out Mammogram Screening Discontinued Data reviewed Previous records, office notes ASSESSMENT/PLAN: 1. Facial twitching - ICD9: 351.8, ICD10: G51.4 (primary diagnosis) To left upper and lateral eyelid. Will obtain ophthalmology reports. Given length of sx,6 months, as well as persistence, suspect nerve related etiology. Requesting consult to neurology-facial pain specialist. - CONSULT TO NEUROLOGY 2. Persistent dry cough - ICD9: 786.2, ICD10: R05.3 Chest xray today. Consider PFTs if sx persist. - XR CHEST 2V FRONTAL/LAT Rossi Martinez APRN.CUSTOMER SALES SPECIALIST documented in this encounter [facility] 10-23-2023 Miscellaneous Notes Order placed HH Patient is scheduled for a Prolia Injection on 10/28/23 at 10:[address] CAM order accordingly. Thank you. First Prolia Injection. ZBIGNIEW:10/07/23 NOV:Will need 10/2024 Labs:08/28/23 Calcium 9.0, 03/09/23 Vitamin D 54.8 documented in this encounter [facility] 10-22-2023 Miscellaneous Notes Patient is scheduled for 10/28/23 at 10am for Prolia. Closed Called [place] [facility] to check the status of PA. Spoke with sales representative metals. She stated that they do not handle PA's for Prolia even though they handled the PA for Evenity. We need to contact [facility] to check if PA is required. Called [facility] at [phone] and spoke to sales representative metals. PA is NOT required for CPT J0897 for Prolia (Buy and Bill) Injections. Call REF# [id number] Patient can be scheduled. [employer] message sent to patient updating her and will await her message back to schedule. Received fax notifying us of this and that they forwarded to the correct insurance/department. Keep open [facility] sales representative metals, Rocio, contacted the office. [place] does not handed prior authorizations for Prolia. Rocio suggested contacting the patient's insurance carrier directly to find out if they handle authorities or another third republican. PA signed and faxed, Transmission ok Keep open The patient finished Evenity and I would like to start her on Prolia now Thank you HH Prior Authorization: Medication/Dose: Prolia 60mg Diagnosis: Other Osteoporosis M81.8 Provider: Dr. Wisdom Completed Via: [facility] RX/Form Insurance: Medical [place] Phone: Pharmacy: [facility] Notes: Completed PA for Prolia. [facility]. Q6 months. Patient finished Evenity. Form on desk for review and to be signed. Please review and sign. Attached last office notes and insurance card. Will await approval/denial documented in this encounter [facility] 10-22-2023 Miscellaneous Notes Closed. documented in this encounter [facility] 10-09-2023 Miscellaneous Notes Patient has been identified by name and date of : Patient phones for refill(s): Requested Prescriptions Pending Prescriptions Disp Refills rosuvastatin (CRESTOR) 5 mg tablet 90 tablet 3 Sig: Take 1 tablet by mouth daily at bedtime. Date of last office visit in primary care: 07/01/2023 Date of next office visit in primary care: 03/16/2024 Please advise. Thank you. Sarah Irwin. documented in this encounter [facility] 10-08-2023 Miscellaneous Notes Called pt left message for her to call for billing and coding problems. This is what we are told to ask these pts to do. Please help to determine specific labs aren't covered and what is needed? Gallo Sanches DO Please see pt message - Jonathan Sanches- I had bloodwork done on March 09 and my insurance won t cover it because it was coded for insurance as preventative. Our insurance has told us to reach out to you and ask if you can change the code for insurance to be diagnostic instead of preventative. I hate to trouble you with this. It s a fairly large bill that we will have to pay otherwise. If you can help with this I would appreciate it. Thanks Clementina Rojas documented in this encounter [facility] 10-07-2023 Instructions Esme Wisdom MD - 10/07/2023 4:54 PM EST - Will start Prolia every 6 months injection under the skin - Continue the calcium and vitamin D - Will do the bone density scan on or after 04/29/2024 in [place] documented in this encounter [facility] 10-07-2023 History of Presen t illness Narrative Images from the original note were not included. ENDOCRINOLOGY CLINIC NOTE Reason for visit Greyson Rojas is a pleasant 53 year old female with history of GERD and breast cancer presented for follow up of low bone density. HPI Ms. Rojas was diagnosed with breast cancer and underwent b/l mastectomy in 2017, pathology showed lobular carcinoma with no mets. She was started on Tamoxifen 09/2017, and anastrozole in 10/2020 but could not tolerate due to joint pain. The plan is to take Tamoxifen for a total of 5 years (will finish in 09/2022) Of note, she is a carrier for H63D for hemochromatosis. Evaluation in 05/2022 showed total Ca 9. iCa 1.15, P 3.3, vitamin D 68, PTH 59, GFR 67, 24 hr urine Ca 75 and SPEP with no M protein. Screening spine xrays did not show fractures We started her on Evenity in 10/2022 and has been tolerating well. She initially had local skin allergic reaction responded well to Benadryl. She has been complaining of knee pain. MRI was done showing arthritic changes and will receive IA gel injection She is taking calcium citrate 1200 mg daily and has vitamin D in it. Labs in 03/2023 showed normal calcium and vitamin D. No falls or fractures since last visit Most recent DXA 04/2022 (compared to 2018 because 2019 machine was different): L spine BMD 0.690, T score -3.2 (11.4% decrease) L TH BMD 0.813, T score -1.1 (1.9% decrease) L FN BMD 0.602, T score -2.2 ( 2.9% decrease) Fracture history: Shoulder fracture 6 years ago during running and a fall Treatment history (including any side effects/contraindications): Evenity 10/2022-09/2023 Family history of metabolic bone disease or fractures: Mother has osteoporosis and had shoulder fracture Father had hip fracture Risk factors: > Menstrual history/male hypogonadism: - last period: early 50s - periods were regular > Medication exposures/pertinent medical or 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: (Glucocorticoid, AED use, relevant medications, hyperthyroidism, kidney stone/disease, eating disorder, malabsorption, immobility, smoking, excessive alcohol use etc) Anastrozole exposure. No smoking or excessive alcohol intake Calcium/Vit D intake: Dietary calcium: Supplements: was on calcium carbonate and switched to citrate 1200 mg per day Vitamin D intake: with the supplements Weight bearing exercise: She does yoga and lift weights, and cardio Dental Procedure: None Radiation Exposure: None Height Loss: Possibly half an inch Past Medical History PAST MEDICAL HISTORY Diagnosis Date Anemia, unspecified iron deficiency Breast cancer (HCC) 08/2017 Breast mass 06/2017 right breast Diffuse cystic mastopathy Helicobacter pylori infection Hiatal hernia Major depressive disorder, single episode, unspecified 1999 depressed year after 3rd child: treated for 1 year with Zoloft Meniere disease Dr. Marie ENT Panic disorder without agoraphobia periodic symptoms Past Surgical History PAST SURGICAL HISTORY Procedure Laterality Date BREAST RECONSTRUCTION implants removed and replaced BX BREAST W/DEVICE 1ST LESION ULTRASOUND GUID Right 06/12/2017 3 nodules; 5cm, 3cm, 3cm COLONOSCOPY 03/16/2023 COLONOSCOPY FLX DX W/COLLJ SPEC WHEN PFRMD 03/01/2018 Colonoscopy EGD N/A 11/05/2021 FOOT SURGERY HX Left 1981 Arch reshaping HIP SURGERY HX 01/08/2022 torn labrum, reshaped femoral head LAPAROSCOPIC SALPING/OOPHORECTOMY Right 02/24/2019 Dr. Jasmin Sosa MASTECTOMY, SIMPLE, COMPLETE Bilateral 08/18/2017 Dr. Johnson (reconstruction), Dr. 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 Sosa-[facility] TOTAL ABD HYSTERECTOMY+BLAD REPR N/A 2020 left ovary removed; Dr. Sosa-[facility]- total hysterectomy with rectocele and bladder sling TOTAL KNEE REPLACEMENT Left 07/24/2023 Medications Current Outpatient Medications Medication Sig tenapanor (IBSRELA) 50 mg tablet Take 1 tablet (50 mg) by mouth two times a day with meals. meloxicam (MOBIC) 7.5 mg tablet Take 1 tablet by mouth every 12 hours. oxyCODONE ir (OXYIR) 5 mg capsule 1-2 BY MOUTH EVERY 4-6 HOURS NEEDED rosuvastatin (CRESTOR) 5 mg tablet Take 1 tablet by mouth daily at bedtime. (Patient not taking: Reported on 07/31/2023) venlafaxine ER (EFFEXOR XR) 37.5 mg 24 hr capsule TAKE 1 CAPSULE ONCE DAILY EYALURONIC ACID 10 mg/mL(mw 2.4 -3.6 million) injection loratadine 10 mg cap Take by mouth. KRILL OIL ORAL Take 800 mg by mouth once daily. omeprazole (PRILOSEC) 20 mg capsule Take 1 capsule by mouth once daily. romosozumab-aqqg (EVENITY) 105 mg/1.17 mL syrg syringe Inject 210 mg subcutaneously once every month. GEMTESA 75 mg tablet Take 75 mg by mouth once daily. COMPRESSION SLEEVE as directed. Breast cancer. 20-30 mmHg Lactobacillus acidophilus (PROBIOTIC ORAL) Take by mouth. (Patient not taking: Reported on 07/31/2023) mecobalamin (B12 ACTIVE ORAL) Take 1 tablet by mouth once daily. CALCIUM CARBONATE/VITAMIN D3 (VITAMIN D-3 ORAL) Take by mouth twice daily. Current Facility-Administered Medications Medication Dose Route Frequency romosozumab-aqqg 210 mg injection (EVENITY) 210 mg SUBCUTANEOUS q 1 MONTH Facility-Administered Medications Ordered in Other Visits Medication Dose Route Frequency lidocaine (PF) 10 mg/mL (1 %) 1-2 mg injection (XYLOCAINE) 0.1-0.2 mL INTRADERMAL PRN lactated ringers iv infusion 30 mL/hr INTRAVENOUS CONTINUOUS The medication list in the chart was reviewed. Allergies ALLERGIES Allergen Reactions Penicillins Hives Other reaction(s): hives all over body Nickel Rash The allergy list in the chart was reviewed. Family History FAMILY HISTORY Problem Relation Age of Onset Cancer Mother melanoma Hypertension Mother Lipids Mother Breast Cancer Mother 63 lumpectomy, radiation, anastrozole x 5 years Diabetes Mother Arthritis Father Lipids Father High Triglycerides Heart Father ICD/pacer, CHF/s/p VT (cause of ) Diabetes Father Osteoporosis Sister Diabetes Sister Lipids Sister Osteoporosis Sister other (hydrocephalus) Sister other (spina bifida) Sister Hypertension Brother Osteoporosis Maternal Grandmother Colon Cancer Paternal Grandmother Cancer Paternal Grandfather HCC-EtOH abuse No Known Problems Daughter other (POTS) Daughter 28 other (PCOS) Daughter 25 Heart Maternal Uncle enlarged heart: cardiomyopathy other (ETOH) Paternal Uncle liver, cause of Breast Cancer Maternal cousin 49 Social History Social History Tobacco Use Smoking status: Never Smokeless tobacco: Never Vaping Use Vaping Use: Never used Substance Use Topics Alcohol use: No Drug use: No Review of Systems: Point review of systems was negative other than what is mentioned in the H&P Physical Exam BP 117/81 Pulse 92 Ht 158.8 cm (5' 2.52) Wt 60.6 kg (133 lb 9.6 oz) LMP 06/08/2020 (Approximate) SpO2 97% BMI 24.03 kg/m Body mass index is 24.03 kg/m . Last 3 Encounter Ht Readings: Date: Ht: 05/16/2022 161.3 cm (5' 3.5) 04/23/2022 161.3 cm (5' 3.5) 04/03/2022 161.9 cm (5' 3.75) General Appearance: Alert, cooperative, not in distress Previous exam Head: Normocephalic, atraumatic Neck: Supple Cardiovascular: Regular rate and rhythm, no murmur, rub, or gallop Respiratory: Clear to auscultation bilaterally Musculoskeletal: There is tenderness in the mid and lower back Extremities: No edema Skin: no rash Neurologic: AAOx 3 Psychiatric: appropriate mood Imaging DXA scans as above Recent Laboratory Data: Assessment and recommendations Greyson Rojas is a pleasant 53 year old female presented for follow-up of low bone density. Low bone density Most recent DXA from 04/2022 shows lowest T score -3.2 at the spine with 11% decline compared to 2018. She has not had fragility fractures. Risk factors for low bone density include age, ethnicity, lean body habitus, family history, postmenopausal state and tamoxifen exposure in the premenopausal period. Evaluation for secondary causes of low BMD was unremarkable, other than slightly low urine calcium. Spine x-rays did not show vertebral fractures We started her on Evenity and finished a 12-month course. We discussed the options to transition therapy to either Prolia or Reclast. We will start Prolia first injection and then every 6 months. We discussed the importance of consistency with taking the Prolia every 6 months. Will repeat her bone density scan and April 2024, we will continue the current calcium and vitamin D intake. Some of the above has been copied from prior documentation on 04/07/2023 but phillips elements reviewed, confirmed, and/or updated by me (Esme Wisdom MD) on 10/07/2023 Medical Decision Making: Problems: Low: Stable chronic illness Data: Unique test result(s) reviewed: 3+ Risk: Moderate: Moderate risk from testing/treatment and Drug management Medical Decision Making Level: 4 - Moderate This note was created using [employer] dictation software. You may find errors that were missed during proofreading. They are purely unintentional and if there are any concerns regarding this dictation, please do not hesitate to call the dictating provider for clarification. Esme Wisdom MD documented in this encounter [facility] 09-23-2023 Miscellaneous Notes Patient phones requesting refills as follows: Requested Prescriptions Pending Prescriptions Disp Refills tenapanor (IBSRELA) 50 mg tablet 60 tablet 5 Sig: Take 1 tablet (50 mg) by mouth two times a day with meals. Please review and advise. Jessica Irving Ma documented in this encounter [facility] 09-16-2023 Miscellaneous Notes Closed. That's ok. We can do the DXA in 04/2024 Angela- let's start the process for enrrique ALCARAZ and I will discuss that with her on her visit HH No insurance will cover a Bone Density except for every 2 years. Even with a prior authorization it is still denied. If you want patient's to have these done they will have to call insurance and see how much it will cost out of pocket, Please advise. Patient said you wanted her to have this done before her next appt. documented in this encounter [facility] 09-15-2023 Miscellaneous Notes Occipitalt message sent to notify patient. CLOSED Thank you. Will likely do Prolia but may also consider Reclast depending on her DXA scan. Lets wait until her follow-up visit HH Patient received her last Evenity Injection today. She will have an OV with you on 10/07/23. She will be planning to transition to Prolia Injections, I am assuming in October 2023? Would you like us to start the PA process for this? Please clarify when you would like her to start the Prolia. Thank you. documented in this encounter [facility] 09-14-2023 Nurse Note The patient is here for an injection of Evenity 210 mg (105 mg/1.17 mL X2) INJECTION # 12 OF 12 (Final Injection- Therapy Complete). Dose: 210 mg Route: Subcutaneous Lot# [id number] Expiration date 01/30/2025 [facility]: 87727-427-62 Given without incident. Site: left arm Dr. Smith present in clinic at time of injection. Last injection: 08/13/23 ZBIGNIEW: 04/07/2023 NOV: 10/07/2023 Insurance: Jose ([employer]) [place] 10/01/2022---09/30/2023 Labs: 03/09/2023 Calcium 9.4, Vitamin D 54.8 DX: M81.8 CPT: J3111 DXA: 04/2022 (T-Score -3.2 Spine) Patient education was given by nurse. Patient tolerated Injection well, in NAD and no reactions noted. Medication supplied by [facility] YUE Cai, RN documented in this encounter [facility] 09-07-2023 Miscellaneous Notes Turned into TE Eula Narayanan documented in this encounter [facility] 07-17-2023 Miscellaneous Notes Patient notified. Yes, should recheck fasting lipid panel in 3 months after starting rx as below Please inform Gallo Sanches DO The following approved medication requests have been transmitted electronically. Requested Prescriptions Signed Prescriptions Disp Refills rosuvastatin (CRESTOR) 5 mg tablet 90 tablet 3 Sig: Take 1 tablet by mouth daily at bedtime. Authorizing Provider: GALLO SANCHES DO Patient notified of results and provider's instructions. Patient verbalizes understanding. Patient states that if provider recommends starting Crestor patient is willing to start this. Patient asking if she would start on medication when should she get labs drawn again to see if medication is working? Patient's pharmacy is [facility]. Ceci Miranda RN Left message to return call Eula Narayanan MA This EF is an estimate and can vary within a normal range. Anything 50-55% or higher is normal. We can recheck echo in 2-3 years again. Her lipid panel is similar to previous panel, her 10 year cardiac risk is only at 1.3%. can continue to diet control or can consider adding on crestor 5-10 mg once a day if interested as well Gallo Sanches DO The 10-year ASCVD risk score (Gómez MEYRS, et al., 2019) is: 1.3% Values used to calculate the score: Age: 53 years Sex: Female Is Non- : No Diabetic: No Tobacco smoker: No Systolic Blood Pressure: 110 mmHg Is BP treated: No HDL Cholesterol: 81 mg/dL Total Cholesterol: 256 mg/dL Pt informed , verbalized understanding. Pt asking about the ejection fraction. Asking if it's okay to be on the low end of normal? Previously It was 64% per patient. Pt concerned since percentage decreased. Also asking for lipid results completed 07/09. Please advise. Eula Narayanan MA Please inform patient that her echo is similar to 2018, no concerns or changes Gallo Sanches DO documented in this encounter [facility] 07-08-2023 Miscellaneous Notes Spoke with pt and information listed below given. Pt verbalizes understanding. Transferred to surgery scheduler to get test scheduled. Rama Henry LPN Left message to return call. Eula Narayanan MA Please inform patient that it is difficult to tell if this is a true abnormal ECG with Left atrial enlargement or this is normal for her. Need for ECHO ultrasound for further evaluation. Order is placed if you can please have her schedule this. Gallo Sanches DO [facility] (x2 following up to original sent 07/02) message turned into TE. Jonathan Doc- you might have seen my EKG showed a possible left atrium enlargement- borderline EKG. I m supposed to have knee replacement surgery on so I m slightly concerned about that information. I m also concerned because my dad had heart disease and it runs in his family. My mom s brother also had an enlarged heart. What are next steps about this? I don t want to ignore this. Thanks Clementina Sterling MA documented in this encounter [facility] 07-07-2023 Miscellaneous Notes PLEASE SEE TE 07/07/23 TURNED INTO TELEPHONE ENCOUNTER & ROUTED TO PCP FOR REVIEW. Autumn Sterling MA Patient calling concerned since heart issues run in her family and the left atrium enlargement has her worried since she is having knee replacement surgery on 07/24/2023. Please advise Patient has concern with EKG please see message was in office yesterday for pre-op clearance Cheyenne Bright Ma documented in this encounter [facility] 07-06-2023 Miscellaneous Notes The following approved medication requests have been transmitted electronically. Requested Prescriptions Signed Prescriptions Disp Refills venlafaxine ER (EFFEXOR XR) 37.5 mg 24 hr capsule 90 capsule 3 Sig: TAKE 1 CAPSULE ONCE DAILY Authorizing Provider: IZABEL KANG APRN.CNP documented in this encounter [facility] 06-11-2023 Nurse Note The patient is here for an injection of Evenity 210 mg (105 mg/1.17 mL X2) INJECTION # 9 OF 12 Dose: 210 mg Route: Subcutaneous Lot# [id number] Expiration date 05/02/2025 [facility]: 47960-854-50 Given without incident. Site: left arm Marzena Cunha CNP present in clinic at time of injection. The date due for the next injection is in 30 days, on or after 07/11/23. ZBIGNIEW: 04/07/2023 NOV: 10/07/2023 Insurance: [employer] ([employer]) [place] 10/01/2022---09/30/2023 Labs: 03/09/2023 Calcium 9.4, Vitamin D 54.8 DX: M81.8 CPT: J3111 DXA: 04/2022 (T-Score -3.2 Spine) Patient education was given by nurse. Patient tolerated Injection well, in NAD and no reactions noted. Medication supplied by [facility]. Adam Joy RN documented in this encounter [facility] 05-25-2023 History of Presen t illness Narrative Episode Visit Count: 20 Therapist That Will Accept/Oversee The Plan Of Care: Salas Sherman Start of Care Date: 09/11/22 Onset Date: 07/11/22 [facility] THERAPY PHYSICAL THERAPY DISCONTINUANCE OF CARE PLAN OF CARE UPDATE: Assessment: Greyson Rojas is discontinued from Physical Therapy services due to maximal benefit.. Patient was seen for 20 visits from Start of Care Date: 09/11/22 to 05/25/2023 and treatment included: Therapeutic exercise, Manual therapy, and Self-group home management. At this time patient has maximized benefits for her back due to the regressing nature of her left knee. She will continue exercises as able while she seeks orthopedic referral for her knee issues. Patient encouraged to contact me with any questions or concerns. Goals updated on 05/21/2023. Goals for Episode of Care: created on 03/09/23 through 05/29/23 [place] in home exercise program. Met Patient will decrease pain rating by 2 points to meet minimal clinical important difference for numeric pain rating scale. Partially met Patient will increase active ROM of R hip to WNL pain free to allow pt to to improve performance of ADLs. Partially met Patient will demonstrate increase in core/trunk and R hip strength to 5/5 during manual muscle testing in order to improve function for leisure / recreation skills, moderate to heavy functional tasks, prior functional tasks, and work tasks. Partially met Perform Recreational tasks and work tasks with decreased report of symptoms/pain in 8-12 weeks. Not met due to knee pain Perform self care, ADLs without pain. Not met due to knee pain Patient will improve active knee range of motion to WNL for improved pain and tolerance for ADLs. Not met SUBJECTIVE: Pt continues to do better with the back, but her knee seems to be not only holding her back from progressing further, it is hurting so bad she is unable to do many of the exercises now. Pain: Pain Pain Level: 5 Pain Location: Knee - Left Description: Sharp, Sore, Aching Frequency: Continuous Additional Pain Information : Location 2 Pain Level 2: 3 Pain Location 2: Low Back/Lumbar Spine - Right Description 2: Sore Frequency 2: Intermittent PROMIS Scales Higher is Better 05/21/2023 11/11/2022 09/29/2022 Phys Func - Score 38 (moderate dysfunction) 36 (moderate dysfunction) 44 (mild dysfunction) Phys Func - Percentile 12 % 8 % 27 % Self-Eff Symptom - Score 48 (Average) - 49 (Average) Self-Eff Symptom - Percentile 42 % - 46 % T-scores: mean of general population = 50. 5 points is clinically meaningfully difference Percentiles provide an indication of how the patient's score ranks in relation to the general population. Higher percentile rankings indicate better function/quality of life. 50th percentile is the average of the general population and indicates half of respondents had a worse score. OBJECTIVE MEASURES WITH LEVEL OF FUNCTION: LE AROM R LE AROM: WNL L LE AROM: Moderate limitations in L knee with pain at each end range LE Strength Trunk Strength: 4+/5 R LE Strength: 5/5 L LE Strength: 5/5, except left knee extension 4/5 and painful TREATMENT: Therapeutic Exercise: 2: Reviewed HEP and discussed progressions and regressions for back and to help account for increasing knee pain Skilled Intervention: Patient was educated in proper exercise technique and purpose for exercises. Skilled judgment was used in selection of appropriate interventions. Self-Penitentiary Management: 1: Discussed plan of care, discussed ways to work around knee with exercises and ADLs Skilled Intervention: Skilled judgment in the selection of proper modification for activity of daily living/home management based on clinical presentation, deficits, and needs. Reviewed patient specific diagnosis in relation to activities of daily living/home management. Activity progression based on professional judgement. Billing Therapeutic Exercise Treatment Minutes: 15 Self-Care/Home Management Treatment Minutes: 13 Skilled Treatment Time Minutes (timed and untimed codes): 28 Total Session Time (minutes): 28 Session Start Time : 1800 Session Stop Time : 182 Salas Sherman PT documented in this encounter [facility] 05-11-2023 Miscellaneous Notes Pt notified Jessica Irving Ma Addended by: CECI NAVA on: 05/11/2023 11:14 AM Modules accepted: Orders I replaced the lab orders. They all say [facility] lab when signed. Pt states she went to the lab to get her blood work done and they weren't able to pull up the orders. States it was sent to [facility]. Can you reorder the Allergy labs so pt can get done. Pt also notified that her Ibsrela was denied so transition pharmacy should be reaching out to her in regards to pt assistance. Jessica Irving Ma documented in this encounter [facility] 05-11-2023 Nurse Note The patient is here for an injection of Evenity 210 mg (105 mg/1.17 mL X2) INJECTION # 8 OF 12 Dose: 210 mg Route: Subcutaneous Lot# [id number] Expiration date 05/02/2025 [facility]: 78861-753-25 Given without incident. Site: left arm Dr. Smith present in clinic at time of injection. The date due for the next injection is in 30 days, on or after 06/11/2023. ZBIGNIEW: 04/07/2023 NOV: 10/07/2023 Insurance: [employer] ([employer]) [place] 10/01/2022---09/30/2023 Labs: 03/09/2023 Calcium 9.4, Vitamin D 54.8 DX: M81.8 CPT: J3111 DXA: 04/2022 (T-Score -3.2 Spine) Patient education was given by nurse. Patient tolerated Injection well, in NAD and no reactions noted. Medication supplied by [facility]. Gisselle Cai RN documented in this encounter [facility] 04-23-2023 History of Presen t illness Narrative Progress Note Greyson Rojas 1970 Encounter date: 04/23/2023 Cancer Staging Carcinoma of upper-outer quadrant of right breast in female, estrogen receptor positive (HCC) Staging form: [facility] Breast, AJCC 8th Edition - Pathologic stage from 08/28/2017: Stage IB (pT2, pN0(sn), cM0, G2, ER: Positive, FL: Positive, HER2: Negative) - Signed by Claire Chaney on 08/28/2017 HPI: Greyson Rojas is a 47 year old pre-menopausal woman with 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 Ms. Rojas reports that she has always had dense breasts and fibrocystic changes. She had a palpable right breast mass that has been present since spring 2016. She had mammogram, ultrasound with 3 biopsies showing ALH, and an MRI. She underwent mammogram at [facility] on 07/15/17 showed an architectural distortion at 10 o'clock posterior depth and ultrasound demonstrated a 1.8 x 2.9 x 1.7 cm irregular mass with an irregular margin in the right breast at 10 o'clock posterior depth 5 cm from the nipple. There is also a 1.8 x 0.6 x 2.3 cm oval lymph node with a circumscribed margin in the right axilla. The cortex is 4 mm, at the upper limit of normal. Biopsy of the lesion on 07/20/17 showed grade II/III ILC, which was ER+ (90%, strong), FL+ (90%, strong), and Her2 0+ (negative) by IHC. Lymph node biopsy was negative for malignancy. Ms. Rojas underwent bilateral mastectomy and SLN biopsy on 08/18/2017. Pathology demonstrated benign breast tissue on the left. She had a 3 cm grade II/III lobular carcinoma with extensive associated lobular neoplasia. 0/2 SLN were positive for disease. No LVI. Mammoprint returned low risk luminal A type. She began tamoxifen 09/2017. She began anastrozole 10/21 after hysterectomy. Interval History Ms. Rojas presents today in follow up of her breast cancer. Began anastrozole 10/21, stopped 03/23 because of joint aches and hot flashes. Restarted tamoxifen 03/2021. Has completed at this time. Has no complaints. Eating and drinking well. No lumps or bumps. PAST MEDICAL HISTORY Diagnosis Date Anemia, unspecified iron deficiency Breast cancer (HCC) 08/2017 Breast mass 06/2017 right breast Diffuse cystic mastopathy Helicobacter pylori infection Hiatal hernia Major depressive disorder, single episode, unspecified 1999 depressed year after 3rd child: treated for 1 year with Zoloft Meniere disease Dr. Marie ENT Panic disorder without agoraphobia periodic symptoms PAST SURGICAL HISTORY Procedure Laterality Date BREAST RECONSTRUCTION implants removed and replaced BX BREAST W/DEVICE 1ST LESION ULTRASOUND GUID Right 06/12/2017 3 nodules; 5cm, 3cm, 3cm COLONOSCOPY 03/16/2023 COLONOSCOPY FLX DX W/COLLJ SPEC WHEN PFRMD 03/01/2018 Colonoscopy EGD N/A 11/05/2021 FOOT SURGERY HX Left 1981 Arch reshaping HIP SURGERY HX 01/08/2022 torn labrum, reshaped femoral head LAPAROSCOPIC SALPING/OOPHORECTOMY Right 02/24/2019 Dr. Jasmin Sosa MASTECTOMY, SIMPLE, COMPLETE Bilateral 08/18/2017 Dr. Johnson (reconstruction), Dr. 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 Sosa-[facility] TOTAL ABD HYSTERECTOMY+BLAD REPR N/A 2020 left ovary removed; Dr. Sosa-[facility]- total hysterectomy with rectocele and bladder sling Current Outpatient Medications Medication Sig Dispense Refill linaCLOtide (LINZESS) 72 mcg capsule Take 1 capsule by mouth once daily. Administer on an empty stomach. Swallow whole; DO NOT crush or chew. 30 capsule 1 EYALURONIC ACID 10 mg/mL(mw 2.4 -3.6 million) injection loratadine 10 mg cap Take by mouth. KRILL OIL ORAL Take 800 mg by mouth once daily. omeprazole (PRILOSEC) 20 mg capsule Take 1 capsule by mouth once daily. 90 capsule 3 romosozumab-aqqg (EVENITY) 105 mg/1.17 mL syrg syringe Inject 210 mg subcutaneously once every month. GEMTESA 75 mg tablet Take 75 mg by mouth once daily. venlafaxine ER (EFFEXOR XR) 37.5 mg 24 hr capsule TAKE 1 CAPSULE ONCE DAILY 90 capsule 3 COMPRESSION SLEEVE as directed. Breast cancer. 20-30 mmHg 2 Each 0 mecobalamin (B12 ACTIVE ORAL) Take 1 tablet by mouth once daily. CALCIUM CARBONATE/VITAMIN D3 (VITAMIN D-3 ORAL) Take by mouth twice daily. Lactobacillus acidophilus (PROBIOTIC ORAL) Take by mouth. (Patient not taking: Reported on 04/23/2023) docusate sodium (COLACE) 100 mg capsule Take by mouth. (Patient not taking: Reported on 04/23/2023) Current Facility-Administered Medications Medication Dose Route Frequency Provider Last Rate Last Admin romosozumab-aqqg 210 mg injection (EVENITY) 210 mg SUBCUTANEOUS q 1 MONTH Esme Wisdom MD 210 mg at 04/09/23 1356 Facility-Administered Medications Ordered in Other Visits Medication Dose Route Frequency Provider Last Rate Last Admin lidocaine (PF) 10 mg/mL (1 %) 1-2 mg injection (XYLOCAINE) 0.1-0.2 mL INTRADERMAL PRN Alejandro Hatfield MD lactated ringers iv infusion 30 mL/hr INTRAVENOUS CONTINUOUS Alejandro Hatfield MD ALLERGIES Allergen Reactions Penicillins Hives Other reaction(s): hives all over body FAMILY HISTORY Problem Relation Age of Onset Cancer Mother melanoma Hypertension Mother Lipids Mother Breast Cancer Mother 63 lumpectomy, radiation, anastrozole x 5 years Diabetes Mother Arthritis Father Lipids Father High Triglycerides Heart Father ICD/pacer, CHF/s/p VT (cause of ) Diabetes Father Osteoporosis Sister Diabetes Sister Lipids Sister Osteoporosis Sister other (hydrocephalus) Sister other (spina bifida) Sister Hypertension Brother Osteoporosis Maternal Grandmother Colon Cancer Paternal Grandmother Cancer Paternal Grandfather HCC-EtOH abuse No Known Problems Daughter other (POTS) Daughter 28 other (PCOS) Daughter 25 Heart Maternal Uncle enlarged heart: cardiomyopathy other (ETOH) Paternal Uncle liver, cause of Breast Cancer Maternal cousin 49 Social History Tobacco Use Smoking status: Never Smokeless tobacco: Never Vaping Use Vaping Use: Never used Substance Use Topics Alcohol use: No Drug use: No Review of Systems: Negative except as noted in HPI I have performed the review of systems today (04/23/2023) and have edited the note to correlate with current findings. Physical Exam: BP 117/82 Pulse 78 Temp 36.2 C (97.2 F) (Temporal) Wt 59.6 kg (131 lb 6.4 oz) LMP 06/08/2020 (Approximate) SpO2 97% BMI 23.65 kg/m ECOG PS: 0 Pain Intensity: 0/10 HEENT: PERRL, EOMI. Oropharynx clear Neck: Supple, no JVD Pulm: CTA bilaterally, no w/r/r CV: RRR, no m/r/g Breast: Bilateral breasts absent with implants in place. No palpable chest wall mass or lesion. Abd: S/ND/NT, no palpable mass or lesion Ext: No edema Psychiatric: Alert and oriented x3. Emotional well-being assessment was performed. Pt denies depression, distress, and or problems with coping or adjustment. I have performed the physical exam today (04/23/2023) and have edited the note to correlate with current findings. Lab Results Component Value Date WBC 5.63 04/16/2023 HB 13.0 04/16/2023 MCV 88.2 04/16/2023 PLT 217 04/16/2023 Lab Results Component Value Date NA 140 03/09/2023 K 4.5 03/09/2023 CO2 26 03/09/2023 BUN 13 03/09/2023 CREAT 0.75 03/09/2023 TBILI 0.3 03/09/2023 TPROT 6.8 03/09/2023 ALB 4.4 03/09/2023 ALKPHOS 61 03/09/2023 ALT 19 03/09/2023 AST 22 03/09/2023 Assessment and Plan: Ms. 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 Right breast cancer -S/p bilateral mastectomy -Mammaprint low risk -Discussed no role for chemotherapy, radiation -Plan for 10 years of tamoxifen vs switch therapy. Began 09/2017. S/p hysterectomy 10/2020, began anastrozole. Did not tolerate secondary to joint aches. Will resume tamoxifen 04/2021. -No role for further mammogram--observing some scar tissue bilateral medial scar with ultrasound in 6 months. -Surgeon is Dr. Chaney -RTC 1 year H63D heterozygote. 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 She has progressed toward goals. Patient continues to present with impairments in overall function and strength that interfere with standing, walking, stair negotiation, bending, heavy exertion, lifting, physical activities, recreational activities . Current prognosis is Good due to: current objective clinical presentation, good overall health status, positive past response to therapy, good support system/ coping skills . She will benefit from continued skilled therapy services to meet the updated goals for this plan of care as noted below. Goals updated on 04/16/2023. Goals for Episode of Care: created on 03/09/23 through 05/09/23 [place] in home exercise program. Met, on-going Patient will decrease pain rating by 2 points to meet minimal clinical important difference for numeric pain rating scale. Partially met Patient will increase active ROM of R hip to WNL pain free to allow pt to to improve performance of ADLs. Progressing towards Patient will demonstrate increase in core/trunk and R hip strength to 5/5 during manual muscle testing in order to improve function for leisure / recreation skills, moderate to heavy functional tasks, prior functional tasks, and work tasks. Progressing towards Perform Recreational tasks and work tasks with decreased report of symptoms/pain in 8-12 weeks. Not met Perform self care, ADLs without pain. Partially met Patient will improve active knee range of motion to WNL for improved pain and tolerance for ADLs. Improving Planned Interventions, Frequency, and Duration: 1x/month (every 6 weeks), 12 weeks Total Number of Visits Planned: 2 Patient to be seen for Therapeutic exercise (41395), Neuromuscular re-education (18060), Manual therapy (44958), Therapeutic activities (76861), Self-group home management (28802), Gait Training ([id number]), Patient/Family/Caregiver Education, Body Mechanics Training PLAN FOR NEXT VISIT: Core strengthening per tolerance SUBJECTIVE: Pt continues to do better, but still gets pain with overdoing it. Functional Limitations: standing, walking, stair negotiation, bending, heavy exertion, lifting, physical activities, recreational activities Pain: Pain Pain Level: 4 Pain Location: Hip - Right, Low Back/Lumbar Spine - Right Description: Tightness, Dull Frequency: Intermittent PROMIS Scales Higher is Better 11/11/2022 09/29/2022 01/08/2022 Phys Func - Score 36 (moderate dysfunction) 44 (mild dysfunction) 29 (severe dysfunction) Phys Func - Percentile 8 % 27 % 2 % Self-Eff Symptom - Score - 49 (Average) 50 (Average) Self-Eff Symptom - Percentile - 46 % 50 % T-scores: mean of general population = 50. 5 points is clinically meaningfully difference Percentiles provide an indication of how the patient's score ranks in relation to the general population. Higher percentile rankings indicate better function/quality of life. 50th percentile is the average of the general population and indicates half of respondents had a worse score. OBJECTIVE MEASURES WITH LEVEL OF FUNCTION: LE Strength Trunk Strength: 4+/5 R LE Strength: 4+/5 L LE Strength: 5/5 TREATMENT: Therapeutic Exercise: 2: Bird dogs x10/side 3: Nely abdominal bracing x10, 10 sec holds 4: DB deadlifts 10# x8 5: GTB pallof press 3x10/side 6: Front planks 3x30 sec 7: Side planks 3x30 sec 8: *1 arm farmers carries 15-20# 3x fatigue Skilled Intervention: Patient was educated in proper exercise technique and purpose for exercises. Skilled judgment was provided in selection of appropriate interventions. Provided written instruction for home exercise program to facilitate proper performance and compliance. Correct performance of therapeutic exercises was facilitated with verbal, visual, and tactile cuing. Billing Therapeutic Exercise Treatment Minutes: 42 Skilled Treatment Time Minutes (timed and untimed codes): 42 Total Session Time (minutes): 42 Session Start Time : 1545 Session Stop Time : 1627 Salas Sherman PT documented in this encounter [facility] 04-10-2023 Miscellaneous Notes Addended by: CECI NAVA on: 04/10/2023 11:57 AM Modules accepted: Orders Linzess 72 mcg daily ordered. documented in this encounter [facility] 04-09-2023 Nurse Note The patient is here for an injection of Evenity 210 mg (105 mg/1.17 mL X2) INJECTION # 7 OF 12 Dose: 210 mg Route: Subcutaneous Lot# [id number] Expiration date 05/02/2025 [facility]: 77304-929-51 Given without incident. Site: left arm Marzena Cunha CNP present in clinic at time of injection. The date due for the next injection is in 30 days, on or after 05/09/2023. ZBIGNIEW: 04/07/2023 NOV: 10/2023 Insurance: [employer] [place] 10/01/2022---09/30/2023 Labs: 03/09/2023 Calcium 9.4, Vitamin D 54.8 DX: M81.8 CPT: J3111 DXA: 04/2022 (T-Score -3.2 Spine) Patient education was given by nurse. Patient tolerated Injection well, in NAD and no reactions noted. Medication supplied by [facility]. Adam Joy RN documented in this encounter [facility] 04-08-2023 History of Presen t illness Narrative Radiology Service Progress Note PATIENT NAME: Greyson Rojas DATE OF SERVICE: April 08, 2023 TIME: 4:20 PM PATIENT IDENTITY VERIFICATION COMPLETED USING TWO (2) IDENTIFIERS: Name and Date of confirmed by patient verbally. FALL SCREENING: Has the patient had 2 falls in the last year or 1 fall with injury or currently using an Ambulatory Assistive Device (Walker, Cane, Wheelchair, Crutches, etc.)? No PATIENT GENDER DATA: Female. status: : No status: NO. PATIENT RELEVANT IMPLANT DATA REVIEWED: Not Applicable RADIOLOGY DEPARTMENT: General X-ray: Exam(s) Completed: Abdomen X-Ray: Abdomen PERIPHERAL IV DATA: Not applicable SIGNED BY: RT Felipa(R) April 08, 2023 4:20 PM documented in this encounter [facility] 04-07-2023 Instructions Esme Wisdom MD - 04/07/2023 3:19 PM EDT - Please do blood tests and bone density scan in September 2023. - I will see you at that time and we will likely transition you to Prolia injections documented in this encounter [facility] 04-07-2023 History of Presen t illness Narrative Images from the original note were not included. ENDOCRINOLOGY CLINIC NOTE Reason for visit Greyson Rojas is a pleasant 52 year old female with history of GERD and breast cancer presented for follow up of low bone density. HPI Ms. Rojas was diagnosed with breast cancer and underwent b/l mastectomy in 2017, pathology showed lobular carcinoma with no mets. She was started on Tamoxifen 09/2017, and anastrozole in 10/2020 but could not tolerate due to joint pain. The plan is to take Tamoxifen for a total of 5 years (will finish in 09/2022) Of note, she is a carrier for H63D for hemochromatosis. Evaluation in 05/2022 showed total Ca 9. iCa 1.15, P 3.3, vitamin D 68, PTH 59, GFR 67, 24 hr urine Ca 75 and SPEP with no M protein. Screening spine xrays did not show fractures We started her on Evenity in 10/2022 and has been tolerating well. She initially had local skin allergic reaction responded well to Benadryl. She has been complaining of knee pain. MRI was done showing arthritic changes and will receive IA gel injection She had 2 mechanical falls after slipping but no fractures. She is taking calcium citrate 1200 mg daily and has vitamin D in it. Labs in 03/2023 showed normal calcium and vitamin D. Most recent DXA 04/2022 (compared to 2018 because 2019 machine was different): L spine BMD 0.690, T score -3.2 (11.4% decrease) L TH BMD 0.813, T score -1.1 (1.9% decrease) L FN BMD 0.602, T score -2.2 ( 2.9% decrease) Fracture history: Shoulder fracture 6 years ago during running and a fall Treatment history (including any side effects/contraindications): Evenity 10/2022-present Family history of metabolic bone disease or fractures: Mother has osteoporosis and had shoulder fracture Father had hip fracture Risk factors: > Menstrual history/male hypogonadism: - last period: early 50s - periods were regular > Medication exposures/pertinent medical or 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: (Glucocorticoid, AED use, relevant medications, hyperthyroidism, kidney stone/disease, eating disorder, malabsorption, immobility, smoking, excessive alcohol use etc) Anastrozole exposure. No smoking or excessive alcohol intake Calcium/Vit D intake: Dietary calcium: Supplements: was on calcium carbonate and switched to citrate 1200 mg per day Vitamin D intake: with the supplements Weight bearing exercise: She does yoga and lift weights, and cardio Dental Procedure: None Radiation Exposure: None Height Loss: Possibly half an inch Past Medical History PAST MEDICAL HISTORY Diagnosis Date Anemia, unspecified iron deficiency Breast cancer (HCC) 08/2017 Breast mass 06/2017 right breast Diffuse cystic mastopathy Helicobacter pylori infection Hiatal hernia Major depressive disorder, single episode, unspecified 1999 depressed year after 3rd child: treated for 1 year with Zoloft Meniere disease Dr. Marie ENT Panic disorder without agoraphobia periodic symptoms Past Surgical History PAST SURGICAL HISTORY Procedure Laterality Date BREAST RECONSTRUCTION implants removed and replaced BX BREAST W/DEVICE 1ST LESION ULTRASOUND GUID Right 06/12/2017 3 nodules; 5cm, 3cm, 3cm COLONOSCOPY 03/16/2023 COLONOSCOPY FLX DX W/COLLJ SPEC WHEN PFRMD 03/01/2018 Colonoscopy EGD N/A 11/05/2021 FOOT SURGERY HX Left 1981 Arch reshaping HIP SURGERY HX 01/08/2022 torn labrum, reshaped femoral head LAPAROSCOPIC SALPING/OOPHORECTOMY Right 02/24/2019 Dr. Jasmin Sosa MASTECTOMY, SIMPLE, COMPLETE Bilateral 08/18/2017 Dr. Johnson (reconstruction), Dr. 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 Sosa-[facility] TOTAL ABD HYSTERECTOMY+BLAD REPR N/A 2020 left ovary removed; Dr. Sosa-[facility]- total hysterectomy with rectocele and bladder sling Medications Current Outpatient Medications Medication Sig EYALURONIC ACID 10 mg/mL(mw 2.4 -3.6 million) injection (Patient not taking: Reported on 04/01/2023) loratadine 10 mg cap Take by mouth. KRILL OIL ORAL Take 800 mg by mouth once daily. omeprazole (PRILOSEC) 20 mg capsule Take 1 capsule by mouth once daily. romosozumab-aqqg (EVENITY) 105 mg/1.17 mL syrg syringe Inject 210 mg subcutaneously once every month. GEMTESA 75 mg tablet Take 75 mg by mouth once daily. venlafaxine ER (EFFEXOR XR) 37.5 mg 24 hr capsule TAKE 1 CAPSULE ONCE DAILY COMPRESSION SLEEVE as directed. Breast cancer. 20-30 mmHg Lactobacillus acidophilus (PROBIOTIC ORAL) Take by mouth. docusate sodium (COLACE) 100 mg capsule Take by mouth. mecobalamin (B12 ACTIVE ORAL) Take 1 tablet by mouth once daily. CALCIUM CARBONATE/VITAMIN D3 (VITAMIN D-3 ORAL) Take by mouth twice daily. Current Facility-Administered Medications Medication Dose Route Frequency romosozumab-aqqg 210 mg injection (EVENITY) 210 mg SUBCUTANEOUS q 1 MONTH Facility-Administered Medications Ordered in Other Visits Medication Dose Route Frequency lidocaine (PF) 10 mg/mL (1 %) 1-2 mg injection (XYLOCAINE) 0.1-0.2 mL INTRADERMAL PRN lactated ringers iv infusion 30 mL/hr INTRAVENOUS CONTINUOUS The medication list in the chart was reviewed. Allergies ALLERGIES Allergen Reactions Penicillins Hives Other reaction(s): hives all over body The allergy list in the chart was reviewed. Family History FAMILY HISTORY Problem Relation Age of Onset Cancer Mother melanoma Hypertension Mother Lipids Mother Breast Cancer Mother 63 lumpectomy, radiation, anastrozole x 5 years Diabetes Mother Arthritis Father Lipids Father High Triglycerides Heart Father ICD/pacer, CHF/s/p VT (cause of ) Diabetes Father Osteoporosis Sister Diabetes Sister Lipids Sister Osteoporosis Sister other (hydrocephalus) Sister other (spina bifida) Sister Hypertension Brother Osteoporosis Maternal Grandmother Colon Cancer Paternal Grandmother Cancer Paternal Grandfather HCC-EtOH abuse No Known Problems Daughter other (POTS) Daughter 28 other (PCOS) Daughter 25 Heart Maternal Uncle enlarged heart: cardiomyopathy other (ETOH) Paternal Uncle liver, cause of Breast Cancer Maternal cousin 49 Social History Social History Tobacco Use Smoking status: Never Smokeless tobacco: Never Vaping Use Vaping Use: Never used Substance Use Topics Alcohol use: No Drug use: No Review of Systems: Answers submitted by the patient for this visit: Core Review of Systems (Submitted on 04/06/2023) Fever : No Night Sweats: No Recent Unintentional Weight Change: Yes Nasal Congestion: No Hearing Loss: No Vision Disturbance: No A Cough: No Difficulty Breathing?: No Chest Pain: No Irregular Heart Beat: No Leg Swelling: Yes Nausea: No Diarrhea: No Black Tarry Stools: No Difficulty Urinating?: No Awaken at Night More Than Once to Urinate?: No Joint Pain or Stiffness: Yes Muscle Aches: Yes Leg or Foot Discomfort at Night?: No A Rash: No Dizziness: No Headaches: No Memory Loss: No Seizures: No Physical Exam BP 138/86 Pulse 77 Ht 158.8 cm (5' 2.5) Wt 59.9 kg (132 lb) LMP 06/08/2020 (Approximate) SpO2 100% BMI 23.76 kg/m Body mass index is 23.76 kg/m . Last 3 Encounter Ht Readings: Date: Ht: 05/16/2022 161.3 cm (5' 3.5) 04/23/2022 161.3 cm (5' 3.5) 04/03/2022 161.9 cm (5' 3.75) General Appearance: Alert, cooperative, not in distress Previous exam Head: Normocephalic, atraumatic Neck: Supple Cardiovascular: Regular rate and rhythm, no murmur, rub, or gallop Respiratory: Clear to auscultation bilaterally Musculoskeletal: There is tenderness in the mid and lower back Extremities: No edema Skin: no rash Neurologic: AAOx 3 Psychiatric: appropriate mood Imaging DXA scans as above Recent Laboratory Data: Assessment and recommendations Greyson Rojas is a pleasant 53 year old female presented for follow-up of low bone density. Low bone density Most recent DXA from 04/2022 shows lowest T score -3.2 at the spine with 11% decline compared to 2018. She has not had fragility fractures. Risk factors for low bone density include age, ethnicity, lean body habitus, family history, postmenopausal state and tamoxifen exposure in the premenopausal period. Evaluation for secondary causes of low BMD was unremarkable, other than slightly low urine calcium. Spine x-rays did not show vertebral fractures Given the very low BMD at the spine, anabolic therapy was preferred and she was started on Evenity in 10/2022. She initially had an allergic skin reaction but responded well to Benadryl. We will finish total of 12-months of Evenity (last injection will be around September 2023. We will repeat her DXA scan at that time and I will check her CMP. We will likely transition to Prolia afterwards We will continue with the current calcium and vitamin D intake. Some of the above has been copied from prior documentation on 07/14/2022 but phillips elements reviewed, confirmed, and/or updated by me (Esme Wisdom MD) on 04/07/2023 Medical Decision Making: Problems: Low: Stable chronic illness Data: Unique test result(s) reviewed: 3+ Unique test(s) ordered: 2 Risk: Moderate: Moderate risk from testing/treatment Medical Decision Making Level: 4 - Moderate This note was created using [employer] dictation software. You may find errors that were missed during proofreading. They are purely unintentional and if there are any concerns regarding this dictation, please do not hesitate to call the dictating provider for clarification. Esme Wisdom MD documented in this encounter [facility] 04-01-2023 History of Presen t illness Narrative CHIEF COMPLAINT: Patient presents with: Recheck: Colonoscopy HPI Greyson Rojas is a 53 year old female here today for Recheck (Colonoscopy ) Patient tells me that she is feeling about the same today. Notes that she is going 4-5 days in a row then will go 2 days without a bowel movement. Taking Colace BID and Benefiber BID. Notes the Miralax causes an upset stomach. Doesn't feel like she is fully emptying. Eating prunes, about 6 a day. No rectal bleeding. Definitely tries to eat healthy. Colonoscopy 03/16/2023: Impression: - External hemorrhoids. - No specimens collected. Recommendation: - Patient has a contact number available for emergencies. The signs and symptoms of potential delayed complications were discussed with the patient. Return to normal activities tomorrow. Written discharge instructions were provided to the patient. - Resume previous diet. - Continue present medications. - Repeat colonoscopy in 5 years for screening purposes. - Return to GI clinic PRN. - The patient is not currently taking anticoagulant or antiplatelet agents. Last OV with me 10/20/2022: Assessment/Plan (R10.12) LUQ pain (primary encounter diagnosis) (R14.0) Bloating (R68.81) Early satiety 1. LUQ pain -- Patient with increased LUQ pain, bloating and early satiety. -- Does have hx of H.pylori. Will check H.pylori stool test. Will stop her Prilosec for at least 7-10 days prior to stool testing. -- GES r/o gastroparesis - H PYLORI AG BY EIA,STOOL - NM GASTRIC EMPTYING SOLID; Future 2. Bloating -- Patient with increased LUQ pain, bloating and early satiety. -- Does have hx of H.pylori. Will check H.pylori stool test. Will stop her Prilosec for at least 7-10 days prior to stool testing. -- GES r/o gastroparesis - H PYLORI AG BY EIA,STOOL - NM GASTRIC EMPTYING SOLID; Future 3. Early satiety -- Patient with increased LUQ pain, bloating and early satiety. -- Does have hx of H.pylori. Will check H.pylori stool test. Will stop her Prilosec for at least 7-10 days prior to stool testing. -- GES r/o gastroparesis - H PYLORI AG BY EIA,STOOL - NM GASTRIC EMPTYING SOLID; Future Follow up in office PRN. Component Latest Ref Rng & Units 03/09/2023 Protein, Total 6.3 - 8.0 g/dL 6.8 Albumin 3.9 - 4.9 g/dL 4.4 Calcium 8.5 - 10.2 mg/dL 9.4 Bilirubin, Total 0.2 - 1.3 mg/dL 0.3 Alkaline Phosphatase 34 - 123 U/L 61 AST 13 - 35 U/L 22 ALT 7 - 38 U/L 19 Glucose 74 - 99 mg/dL 89 BUN 7 - 21 mg/dL 13 Creatinine 0.58 - 0.96 mg/dL 0.75 Sodium 136 - 144 mmol/L 140 Potassium 3.7 - 5.1 mmol/L 4.5 Chloride 97 - 105 mmol/L 103 CO2 22 - 30 mmol/L 26 Anion Gap 9 - 18 mmol/L 11 eGFR >=60 mL/min/1.73m 94 Cholesterol, Total <200 mg/dL 253 (H) Triglyceride <150 mg/dL 68 HDL Cholesterol >39 mg/dL 80 Non HDL Cholesterol <130 mg/dL 173 (H) Fasting Time hrs 13 VLDL Cholesterol <30 mg/dL 14 TC:HDL Ratio <5.10 3.16 LDL Cholesterol <100 mg/dL 159 (H) LDL:HDL Ratio <2.54 1.99 Hemoglobin A1C 4.3 - 5.6 % 5.4 Estimated Average Glucose mg/dL 108 TSH 0.270 - 4.200 mIU/L 2.150 Vitamin D 25 Hydroxy 31.0 - 80.0 ng/mL 54.8 CRP <0.9 mg/dL 0.4 Current Outpatient Medications Medication Sig loratadine 10 mg cap Take by mouth. KRILL OIL ORAL Take 800 mg by mouth once daily. omeprazole (PRILOSEC) 20 mg capsule Take 1 capsule by mouth once daily. romosozumab-aqqg (EVENITY) 105 mg/1.17 mL syrg syringe Inject 210 mg subcutaneously once every month. GEMTESA 75 mg tablet Take 75 mg by mouth once daily. venlafaxine ER (EFFEXOR XR) 37.5 mg 24 hr capsule TAKE 1 CAPSULE ONCE DAILY COMPRESSION SLEEVE as directed. Breast cancer. 20-30 mmHg Lactobacillus acidophilus (PROBIOTIC ORAL) Take by mouth. docusate sodium (COLACE) 100 mg capsule Take by mouth. mecobalamin (B12 ACTIVE ORAL) Take 1 tablet by mouth once daily. CALCIUM CARBONATE/VITAMIN D3 (VITAMIN D-3 ORAL) Take by mouth twice daily. EYALURONIC ACID 10 mg/mL(mw 2.4 -3.6 million) injection (Patient not taking: Reported on 04/01/2023) Current Facility-Administered Medications Medication Dose Route Frequency romosozumab-aqqg 210 mg injection (EVENITY) 210 mg SUBCUTANEOUS q 1 MONTH Facility-Administered Medications Ordered in Other Visits Medication Dose Route Frequency lidocaine (PF) 10 mg/mL (1 %) 1-2 mg injection (XYLOCAINE) 0.1-0.2 mL INTRADERMAL PRN lactated ringers iv infusion 30 mL/hr INTRAVENOUS CONTINUOUS ALLERGIES Allergen Reactions Penicillins Hives Other reaction(s): hives all over body Social History Tobacco Use Smoking status: Never Smokeless tobacco: Never Vaping Use Vaping Use: Never used Substance Use Topics Alcohol use: No Drug use: No PAST MEDICAL HISTORY Diagnosis Date Anemia, unspecified iron deficiency Breast cancer (HCC) 08/2017 Breast mass 06/2017 right breast Diffuse cystic mastopathy Helicobacter pylori infection Hiatal hernia Major depressive disorder, single episode, unspecified 1999 depressed year after 3rd child: treated for 1 year with Zoloft Meniere disease Dr. Marie ENT Panic disorder without agoraphobia periodic symptoms PAST SURGICAL HISTORY Procedure Laterality Date BREAST RECONSTRUCTION implants removed and replaced BX BREAST W/DEVICE 1ST LESION ULTRASOUND GUID Right 06/12/2017 3 nodules; 5cm, 3cm, 3cm COLONOSCOPY 03/16/2023 COLONOSCOPY FLX DX W/COLLJ SPEC WHEN PFRMD 03/01/2018 Colonoscopy EGD N/A 11/05/2021 FOOT SURGERY HX Left 1982 Arch reshaping HIP SURGERY HX 01/08/2022 torn labrum, reshaped femoral head LAPAROSCOPIC SALPING/OOPHORECTOMY Right 02/24/2019 Dr. Jasmin Sosa MASTECTOMY, SIMPLE, COMPLETE Bilateral 08/18/2017 Dr. Johnson (reconstruction), Dr. 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 Sosa-[facility] TOTAL ABD HYSTERECTOMY+BLAD REPR N/A 2020 left ovary removed; Dr. Sosa-[facility]- total hysterectomy with rectocele and bladder sling FAMILY HISTORY Problem Relation Age of Onset Cancer Mother melanoma Hypertension Mother Lipids Mother Breast Cancer Mother 63 lumpectomy, radiation, anastrozole x 5 years Diabetes Mother Arthritis Father Lipids Father High Triglycerides Heart Father ICD/pacer, CHF/s/p VT (cause of ) Diabetes Father Osteoporosis Sister Diabetes Sister Lipids Sister Osteoporosis Sister other (hydrocephalus) Sister other (spina bifida) Sister Hypertension Brother Osteoporosis Maternal Grandmother Colon Cancer Paternal Grandmother Cancer Paternal Grandfather HCC-EtOH abuse No Known Problems Daughter other (POTS) Daughter 28 other (PCOS) Daughter 25 Heart Maternal Uncle enlarged heart: cardiomyopathy other (ETOH) Paternal Uncle liver, cause of Breast Cancer Maternal cousin 49 REVIEW OF SYSTEMS Review of Systems Cardiovascular: Positive for leg swelling. Gastrointestinal: Positive for abdominal distention and constipation. Gas All other systems reviewed and are negative. PHYSICAL EXAM BP 104/68 Pulse 69 Ht 5' 2 (1.58m) Wt 134 lb 14.4 oz (61.2kg) LMP 06/08/2020 BMI 24.67 kg/(m^2). Physical Exam Constitutional: Appearance: Normal appearance. She is normal weight. HENT: Head: Normocephalic and atraumatic. Eyes: General: No scleral icterus. Extraocular Movements: Extraocular movements intact. Conjunctiva/sclera: Conjunctivae normal. Pupils: Pupils are equal, round, and reactive to light. Cardiovascular: Rate and Rhythm: Normal rate and regular rhythm. Pulses: Normal pulses. Heart sounds: Normal heart sounds. Pulmonary: Effort: Pulmonary effort is normal. Breath sounds: Normal breath sounds. Abdominal: General: Abdomen is flat. Bowel sounds are normal. Palpations: Abdomen is soft. Tenderness: There is no abdominal tenderness. Musculoskeletal: General: Normal range of motion. Cervical back: Normal range of motion and neck supple. Skin: General: Skin is warm and dry. Coloration: Skin is not jaundiced. Neurological: General: No focal deficit present. Mental Status: She is alert and oriented to person, place, and time. Psychiatric: Mood and Affect: Mood normal. Behavior: Behavior normal. Thought Content: Thought content normal. Judgment: Judgment normal. Assessment/Plan (K59.09) Chronic constipation (primary encounter diagnosis) 1. Chronic constipation -- Patient with ongoing constipation. Going regularly however never feels like she is fully emptying. Taking Colace BID, Benefiber BID, probiotics, 6 prunes daily. -- Plan for Sitz marker study. KUD ordered, sitz marker given to patient. Explained in detail. -- Consider Linzess for patient. - XR ABDOMEN 1V SUPINE; Future Follow up in office 3 months/PRN. Recommended to please call office/go to ER if fever, chills, chest pain, SOB, diarrhea, nausea, emesis, worsening abdominal pain, dehydration occurs I spent a total of 25 minutes on the date of the service which included preparing to see the patient, [id number] patient care, completing clinical documentation, obtaining and/or reviewing separately obtained history, performing a medically appropriate examination, counseling and educating the patient/family/caregiver, and ordering medications, tests, or procedures. Ceci Nava PA-C April 01, 2023 3:59 PM documented in this encounter [facility] 03-16-2023 Nurse procedure note Mylicon 5cc/1000cc sterile water instilled through scope. [facility] 03-16-2023 Nurse procedure note Abdominal support applied. [facility] 03-16-2023 Miscellaneous Notes Mylicon 5cc/1000cc sterile water instilled through scope. Abdominal support applied. HISTORY AND PHYSICAL Greyson Rojas, 53 year old female Current history and physical on file: No Is a new History and Physical required for today's visit? Yes Indication for procedure: Screening PROCEDURE(S) SCHEDULED FOR: Colonoscopy with or without biopsies and with or without removal of polyps or lesions, dilation (any means), treatment of bleeding (any means), based on clinical findings. BASELINE BEHAVIOR: Calm BASELINE ORIENTATION: A & O x3 All medications and allergies reviewed: Yes Skin Assessment: Warm dry mucus membranes pink Airway/Respiratory Assessment: Airway: visualization of the uvula- Yes Mouth: opening greater than 2 fingerbreadths- Yes Neck: full range of motion- Yes Breath sounds clear/equal- Yes Cardiac Assessment: Regular rate and rhythm without murmur Abdominal Assessment: Abdomen soft, non-tender, no masses or organomegaly. Sedation Plan: Moderate Additional Comments: None Alejandro Hatfield MD documented in this encounter [facility] 03-16-2023 Anesthesiology Preoperative evaluation and management note HISTORY AND PHYSICAL Greyson Rojas, 53 year old female Current history and physical on file: No Is a new History and Physical required for today's visit? Yes Indication for procedure: Screening PROCEDURE(S) SCHEDULED FOR: Colonoscopy with or without biopsies and with or without removal of polyps or lesions, dilation (any means), treatment of bleeding (any means), based on clinical findings. BASELINE BEHAVIOR: Calm BASELINE ORIENTATION: A & O x3 All medications and allergies reviewed: Yes Skin Assessment: Warm dry mucus membranes pink Airway/Respiratory Assessment: Airway: visualization of the uvula- Yes Mouth: opening greater than 2 fingerbreadths- Yes Neck: full range of motion- Yes Breath sounds clear/equal- Yes Cardiac Assessment: Regular rate and rhythm without murmur Abdominal Assessment: Abdomen soft, non-tender, no masses or organomegaly. Sedation Plan: Moderate Additional Comments: None Alejandro Hatfield MD [facility] Work Phone: 03-11-2023 Instructions Ashtyn Javier APRN.CUSTOMER SALES SPECIALIST - 03/11/2023 3:03 PM EDT Images from the original note were not included. Breast Self-Exam What is a breast self-exam? A breast self-exam is a technique that a woman can use to examine her breasts to look for changes (such lumps or thickenings) that may signal breast cancer. When a woman detects breast cancer in its early stages, she greatly improves her chances for surviving the disease. Most breast lumps (80 percent) are not cancerous, but you can help ensure your breast health by regularly performing a breast self-exam. When should I perform a breast self-exam? You should perform a breast self-exam once a month, three to five days after your menstrual period ends. If you have stopped menstruating, perform the exam on the same day of each month, such as the first day of the month or a day easy for you to remember, like your date. The exam will take several minutes to perform. With each exam, you will become familiar with the contours and feel of your breasts and will be more alert to changes. 1. The first part of the exam is the inspection, or looking at your breasts. Stand undressed from waist up in front of a large mirror in a well-lit room. Look at your breasts. Don't be alarmed if they do not look equal in size or shape. Most women's breasts are not. With your arms relaxed by your sides, look for any changes in your breasts' size, shape, texture, or skin. Look for any sores as well as any puckering, dimpling, or discoloration of the skin. Inspect your nipples and look for any sores, peeling, or change in the direction of the nipples. 2. Next, place your hands on your hips and press down firmly to tighten the chest muscles beneath your breasts. Turn from side to side so you can inspect the outer part of your breasts. 3. Bend forward toward the mirror. Roll your shoulders and elbows forward to tighten your chest muscles. Your breasts will fall forward. Look for any changes in the shape or contour of your breasts. 4. Now, clasp your hands behind your head and press your hands forward. Again, turn from side to side to inspect your breasts' outer portions. Remember to inspect the border underneath your breasts. You may need to lift your breasts with your hand to see this area. 5. Check your nipples for discharge (fluid). Place your thumb and forefinger on the tissue surrounding the nipple, and pull outward toward the end of the nipple. Look for any discharge. Repeat on your other breast. In the shower 6. The second part of the exam is palpation, or feeling for changes. Use the finger pads of your three middle fingers on each hand to feel for lumps. It is helpful to have your hands slippery with soap and water. Check for any lumps or thickening in your underarm area. Place your left hand on your hip and reach with your right hand to feel in the left armpit. Repeat on the other side. 7. Check both sides for lumps or thickenings below your collarbone. 8. With soapy hands, support the breast with one hand while using the other hand to feel the tissue. Use the flat part of your fingers to press gently into the breast. Follow an up-and-down pattern along the breast, moving from bra line to collarbone. Continue the pattern until you have covered the entire breast. Repeat on the other side. Lying down 9. Next, lie down and place a small pillow or folded towel under your right shoulder. Put your right hand behind your head. Place your left hand on the upper portion of your right breast with fingers together and flat. Body lotion may help to make palpation easier. 10. Think of your breast as a face on a clock. Start at 12 o'clock and move toward 1 o'clock in small circular motions. Continue around the entire sauk[place]sui[place] until you reach 12 o'clock again. Keep your fingers flat and in constant contact with your breast. When the sa[place]sui[place] is complete, move in one inch toward the nipple and complete another sauk-suiattle around the clock. Continue in this pattern until your entire breast has been palpated. Make sure to palpate the upper outer areas that extend into your armpit. 11. Place your fingers flat and directly on top of your nipple. Feel beneath the nipple for any changes. Gently press your nipple inward. It should move easily. Repeat steps 9, 10, and 11 on your other breast. What should I do if I find a lump? See your physician if you discover any new breast changes, changes that persist after your menstrual cycle, or changes that concern you. Conditions that should be checked by a physician include: An area that is distinctly different from any other area on either breast A lump or thickening in or near the breast or in the underarm that persists through the menstrual cycle A change in the size, shape, or contour of the breast A mass or lump, which may feel as small as a pea A marble-like area under the skin A change in the feel or appearance of the skin on the breast or nipple (dimpled, puckered, scaly, or inflamed [red, warm, or swollen]) Bloody or clear fluid discharge from the nipples Redness of the skin on the breast or nipple References [employer]. Breast Cancer Accessed 07/04/2013. Antonio Alcocer, Hawk M, Anam H. Breast disorders and breast cancer screening. In: Yadi CARDENAS, ed. [facility]: Current Clinical Medicine 2010. 2nd ed. [place], [place]: Norbert Persaud; 2010:section 15. Copyright 5726-2945 [facility]. All rights reserved This information is provided by the [facility] and is not intended to replace the medical advice of your doctor or health care provider. Please consult your health care provider for advice about a specific medical condition. For additional health information, please contact the [facility] Health Information at the [facility] or toll-free extension [phone]. If you prefer, you may visit [email or web address] documented in this encounter [facility] 03-11-2023 History of Presen t illness Narrative Images from the original note were not included. THUAN Kumar, OCN Breast [facility] [address] [place], [place] [id number] Date of Visit: 03/11/2022 Patient Name: Greyson Rojas Date of : 1970 Established Visit Breast Surgeon: Claire Chaney MD Plastic Surgeon: Oliver Johnson MD Medical Oncologist: Olya Brar MD SUBJECTIVE Chief Complaint: Patient presents with: Yearly Exam HPI Greyson Rojas is a 53 year old female who presents today for annual clinical breast exam and Survivorship visit. She is an established [facility] patient and was last seen in the [facility] 04/03/2022. She denies current breast concerns including palpable breast lumps or masses, enlarged lymph nodes, pain, tenderness, skin changes, erythema, nipple discharge or breast trauma. Treatment Summary Diagnosis Cancer Type/Histology Subtype: Invasive moderately differentiated lobular carcinoma upper outer quadrant right breast Grade II Receptors: ER Positive FL Positive HER2 Negative Diagnosis date: 07/15/2017 Stage/TNM: Stage IIA c(T2N0M0) p(T2pNO) Genomic testing done: Yes - Mammoprint Genomic test results: Low risk Surgery: Surgery date: 08/18/2017 Surgical procedure/findings: Bilateral simple mastectomies with right sentinel node biopsy, implant reconstruction Lymph node removal: 0/2 lymph nodes positive for metastasis Radiation: No Systemic Therapy (chemotherapy/immunotherapy): No Endocrine Treatment:: Yes Tamoxifen (Nolvadex) 20 mg daily x 5-10 years (potential side effects include: increased risk for blood clots, increased risk for endometrial cancer, hot flashes, hair thinning, mood changes, bloating/swelling, weight loss/gain, vaginal discharge/dryness or spotting, and decreased libido) Started: 09/10/2017 Clinical Study: FLEX Nursing Notes: Shana CaicedoST 03/11/2023 2:20 PM Signed Patient is here for her yearly exam and new survivorship visit. Patient states that she is not having any breast pains or concerns. ST Tu No question data found. Family and personal medical histories reviewed and updated. REVIEW OF SYSTEMS: Complete 10 system ROS done and negative except as stated above in the HPI. Current Outpatient Medications Medication Sig Dispense Refill omeprazole (PRILOSEC) 20 mg capsule Take 1 capsule by mouth once daily. 90 capsule 3 romosozumab-aqqg (EVENITY) 105 mg/1.17 mL syrg syringe Inject 210 mg subcutaneously once every month. GEMTESA 75 mg tablet Take 75 mg by mouth once daily. venlafaxine ER (EFFEXOR XR) 37.5 mg 24 hr capsule TAKE 1 CAPSULE ONCE DAILY 90 capsule 3 COMPRESSION SLEEVE as directed. Breast cancer. 20-30 mmHg 2 Each 0 Lactobacillus acidophilus (PROBIOTIC ORAL) Take by mouth. docusate sodium (COLACE) 100 mg capsule Take by mouth. mecobalamin (B12 ACTIVE ORAL) Take 1 tablet by mouth once daily. CALCIUM CARBONATE/VITAMIN D3 (VITAMIN D-3 ORAL) Take by mouth twice daily. loratadine 10 mg cap Take by mouth. KRILL OIL ORAL Take 800 mg by mouth once daily. albuterol HFA (VENTOLIN HFA) 90 mcg/actuation inhaler Inhale 2 Puffs as instructed every 4 hours as needed for wheezing/shortness of breath. 1 Each 0 meloxicam (MOBIC) 15 mg tablet Take 1 tablet by mouth once daily. For 14 days then as needed. Take with a meal 30 tablet 1 Current Facility-Administered Medications Medication Dose Route Frequency Provider Last Rate Last Admin romosozumab-aqqg 210 mg injection (EVENITY) 210 mg SUBCUTANEOUS q 1 MONTH Esme Wisdom MD 210 mg at 03/09/23 1126 Facility-Administered Medications Ordered in Other Visits Medication Dose Route Frequency Provider Last Rate Last Admin lidocaine (PF) 10 mg/mL (1 %) 1-2 mg injection (XYLOCAINE) 0.1-0.2 mL INTRADERMAL PRN Alejandro Hatfield MD lactated ringers iv infusion 30 mL/hr INTRAVENOUS CONTINUOUS Alejandro Hatfield MD I have performed the physical exam on 03/11/2023 - all new findings noted below. PAST MEDICAL HISTORY Diagnosis Date Anemia, unspecified iron deficiency Breast cancer (HCC) 08/2017 Breast mass 06/2017 right breast Diffuse cystic mastopathy Helicobacter pylori infection Hiatal hernia Major depressive disorder, single episode, unspecified 1999 depressed year after 3rd child: treated for 1 year with Zoloft Meniere disease Dr. Marie ENT Panic disorder without agoraphobia periodic symptoms PAST SURGICAL HISTORY Procedure Laterality Date BREAST RECONSTRUCTION implants removed and replaced BX BREAST W/DEVICE 1ST LESION ULTRASOUND GUID Right 06/12/2017 3 nodules; 5cm, 3cm, 3cm COLONOSCOPY 03/16/2023 COLONOSCOPY FLX DX W/COLLJ SPEC WHEN PFRMD 03/01/2018 Colonoscopy EGD N/A 11/05/2021 FOOT SURGERY HX Left 1981 Arch reshaping HIP SURGERY HX 01/08/2022 torn labrum, reshaped femoral head LAPAROSCOPIC SALPING/OOPHORECTOMY Right 02/24/2019 Dr. Jasmin Sosa MASTECTOMY, SIMPLE, COMPLETE Bilateral 08/18/2017 Dr. Johnson (reconstruction), Dr. 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 Sosa-[facility] TOTAL ABD HYSTERECTOMY+BLAD REPR N/A 2020 left ovary removed; Dr. Sosa-[facility]- total hysterectomy with rectocele and bladder sling Social History Tobacco Use Smoking status: Never Smokeless tobacco: Never Vaping Use Vaping Use: Never used Substance Use Topics Alcohol use: No Drug use: No FAMILY HISTORY Problem Relation Age of Onset Cancer Mother melanoma Hypertension Mother Lipids Mother Breast Cancer Mother 63 lumpectomy, radiation, anastrozole x 5 years Diabetes Mother Arthritis Father Lipids Father High Triglycerides Heart Father ICD/pacer, CHF/s/p VT (cause of ) Diabetes Father Osteoporosis Sister Diabetes Sister Lipids Sister Osteoporosis Sister other (hydrocephalus) Sister other (spina bifida) Sister Hypertension Brother Osteoporosis Maternal Grandmother Colon Cancer Paternal Grandmother Cancer Paternal Grandfather HCC-EtOH abuse No Known Problems Daughter other (POTS) Daughter 28 other (PCOS) Daughter 25 Heart Maternal Uncle enlarged heart: cardiomyopathy other (ETOH) Paternal Uncle liver, cause of Breast Cancer Maternal cousin 49 The ROS, medical, surgical, family, and 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 were reviewed by Ashtyn Javier APRN.CUSTOMER SALES SPECIALIST ALLERGIES Allergen Reactions Penicillins Hives Other reaction(s): hives all over body Current Outpatient Medications Medication Sig omeprazole (PRILOSEC) 20 mg capsule Take 1 capsule by mouth once daily. romosozumab-aqqg (EVENITY) 105 mg/1.17 mL syrg syringe Inject 210 mg subcutaneously once every month. GEMTESA 75 mg tablet Take 75 mg by mouth once daily. venlafaxine ER (EFFEXOR XR) 37.5 mg 24 hr capsule TAKE 1 CAPSULE ONCE DAILY COMPRESSION SLEEVE as directed. Breast cancer. 20-30 mmHg Lactobacillus acidophilus (PROBIOTIC ORAL) Take by mouth. docusate sodium (COLACE) 100 mg capsule Take by mouth. mecobalamin (B12 ACTIVE ORAL) Take 1 tablet by mouth once daily. CALCIUM CARBONATE/VITAMIN D3 (VITAMIN D-3 ORAL) Take by mouth twice daily. loratadine 10 mg cap Take by mouth. KRILL OIL ORAL Take 800 mg by mouth once daily. albuterol HFA (VENTOLIN HFA) 90 mcg/actuation inhaler Inhale 2 Puffs as instructed every 4 hours as needed for wheezing/shortness of breath. meloxicam (MOBIC) 15 mg tablet Take 1 tablet by mouth once daily. For 14 days then as needed. Take with a meal Current Facility-Administered Medications Medication Dose Route Frequency romosozumab-aqqg 210 mg injection (EVENITY) 210 mg SUBCUTANEOUS q 1 MONTH Facility-Administered Medications Ordered in Other Visits Medication Dose Route Frequency lidocaine (PF) 10 mg/mL (1 %) 1-2 mg injection (XYLOCAINE) 0.1-0.2 mL INTRADERMAL PRN lactated ringers iv infusion 30 mL/hr INTRAVENOUS CONTINUOUS OBJECTIVE BP 117/76 Pulse 78 Ht 158.8 cm (5' 2.5) Wt 59 kg (130 lb) LMP 06/08/2020 (Approximate) BMI 23.40 kg/m BMI 23.40 kg/(m^2) Physical Exam BREAST EXAM: On visual inspection (seated, with hands on hips and with hands above head), the breasts are symmetrical. Bilateral mastectomy with implant reconstruction. Bilateral mastectomy incisional scars, right axillary incisional scar. No palpable masses, axillary or supraclavicular adenopathy noted bilaterally. ASSESSMENT/PLAN: 1. Carcinoma of upper-outer quadrant of right breast in female, estrogen receptor positive (HCC) - ICD9: 174.4, V86.0, ICD10: C50.411, Z17.0 (primary diagnosis) 2. History of bilateral mastectomy - ICD9: V45.71, ICD10: Z90.13 3. History of bilateral breast implants - ICD9: V43.82, ICD10: Z98.82 4. Use of tamoxifen (Nolvadex) - ICD9: V07.51, ICD10: Z79.810 Greyson Rojas is a 53 year old female who presents today for Survivorship and annual clinical breast exam. She is status post bilateral skin sparing mastectomies, right sentinel lymph node biopsy on 08/18/2017 for invasive lobular carcinoma grade 2, ER/FL+ H2N - and risk reduction. Pathological stage IB [pT2(3cm)N0(0/2)M0]. She denies any breast related concerns or complaints. There are no concerning or suspicious findings demonstrated on today's clinical breast exam. She will maintain vigilant breast awareness and continue monthly self breast exams. She will contact us with any concerns. She is clinically stable and has no evidence of disease. Portions of this note including HPI, ROS, impression/plan, and examination may have been copied forward as to provide important historical information essential in contributing to medical decision making. Documentation has been reviewed and edited as necessary to support clinical decision making for today's visit 03/11/2023. Follow up: Return in 1 year (on 03/11/2024) for clinical exam. Medical Decision Making: Problems: Low: Stable chronic illness Data: Unique test result(s) reviewed: 3+ Medical Decision Making Level: 3 - Low Ashtyn Javier APRN.CNP I verified the veterinary medical officer/nurse documentation in the medical record, and made appropriate changes. I personally performed a history,physical exam and medical decision making. Ashtyn Javier APRN-FAHEEM, OCN documented in this encounter [facility] 03-11-2023 Nurse Note Patient is here for her yearly exam and new survivorship visit. Patient states that she is not having any breast pains or concerns. ST Tu documented in this encounter [facility] 03-10-2023 History of Presen t illness Narrative Episode Visit Count: 18 Therapist That Will Accept/Oversee The Plan Of Care: Salas Sherman Start of Care Date: 09/11/22 Onset Date: 07/11/22 REHABILITATION AND SPORTS THERAPY PHYSICAL THERAPY PROGRESS REPORT PLAN OF CARE UPDATE: Assessment: Greyson Rojas demonstrates moderate improvement in rising from a chair, standing, and walking. She has progressed toward goals. Patient continues to present with impairments in ADL's, overall function, range of motion, symptom management, and tissue tenderness that interfere with standing, walking, stair negotiation, bending, heavy exertion, lifting, physical activities, recreational activities . Current prognosis is Good due to: current objective clinical presentation, good overall health status, positive past response to therapy, good support system/ coping skills . She will benefit from continued skilled therapy services to meet the updated goals for this plan of care as noted below. Goals updated on 03/09/2023. Goals for Episode of Care: created on 03/09/23 through 05/09/23 [place] in home exercise program. Met, on-going Patient will decrease pain rating by 2 points to meet minimal clinical important difference for numeric pain rating scale. Partially met Patient will increase active ROM of R hip to WNL pain free to allow pt to to improve performance of ADLs. Progressing towards Patient will demonstrate increase in core/trunk and R hip strength to 5/5 during manual muscle testing in order to improve function for leisure / recreation skills, moderate to heavy functional tasks, prior functional tasks, and work tasks. Progressing towards Perform Recreational tasks and work tasks with decreased report of symptoms/pain in 8-12 weeks. Not met Perform self care, ADLs without pain. Partially met Patient will improve active knee range of motion to WNL for improved pain and tolerance for ADLs. Improving Planned Interventions, Frequency, and Duration: 1x/month, 8 weeks Total Number of Visits Planned: 2 Patient to be seen for Therapeutic exercise ([id number]), Neuromuscular re-education (38308), Manual therapy (61636), Therapeutic activities (72950), Self-group home management ([id number]), Patient/Family/Caregiver Education, Body Mechanics Training PLAN FOR NEXT VISIT: continue core strengthening progression per tolerance SUBJECTIVE: Pt doing better this last month. Notes that she is continuing her core strengthening without issue. Has not gotten back into Yoga yet, but continues her therapy workouts. Functional Limitations: standing, walking, stair negotiation, bending, heavy exertion, lifting, physical activities, recreational activities Pain: Pain Pain Level: 3 Pain Location: Hip - Right, Low Back/Lumbar Spine - Right Description: Tightness, Dull Frequency: Intermittent PROMIS Scales Higher is Better 11/11/2022 09/29/2022 01/08/2022 Phys Func - Score 36 (moderate dysfunction) 44 (mild dysfunction) 29 (severe dysfunction) Phys Func - Percentile 8 % 27 % 2 % Self-Eff Symptom - Score - 49 (Average) 50 (Average) Self-Eff Symptom - Percentile - 46 % 50 % T-scores: mean of general population = 50. 5 points is clinically meaningfully difference Percentiles provide an indication of how the patient's score ranks in relation to the general population. Higher percentile rankings indicate better function/quality of life. 50th percentile is the average of the general population and indicates half of respondents had a worse score. OBJECTIVE MEASURES WITH LEVEL OF FUNCTION: LE Strength Trunk Strength: 4+/5 R LE Strength: 4+/5 L LE Strength: 5/5 TREATMENT: Therapeutic Exercise: 2: Bird dogs x10/side 3: Nely abdominal bracing x10, 10 sec holds 4: DB deadlifts 10# x8 5: GTB pallof press 3x10/side 6: GTB stir the pot 2x10/side 7: GTB lifts and chops 2x10/side each 8: *Modified front planks 4x15 sec 9: *Modified side planks 6x10 sec/side 10: Discussed how to progress to full planks Skilled Intervention: Patient was educated in proper exercise technique and purpose for exercises. Skilled judgment was provided in selection of appropriate interventions. Provided written instruction for home exercise program to facilitate proper performance and compliance. Correct performance of therapeutic exercises was facilitated with verbal, visual, and tactile cuing. Billing Therapeutic Exercise Treatment Minutes: 40 Total Treatment Time Minutes (timed/untimed): 40 Session Start Time : 0820 Session Stop Time : 0900 Salas Sherman PT documented in this encounter [facility] 03-10-2023 History of Presen t illness Narrative CC: Greyson Rojas is a 53 year old female who presents to the office for physical HPI: HPL, would like to diet control and not start statin therapy, admits that she eats a lot of ham/salami and red meats- can cut back on these. Is very physically active with exercising regularly The 10-year ASCVD risk score (Gómez MYERS, et al., 2019) is: 1.3% Values used to calculate the score: Age: 53 years Sex: Female Is Non- : No Diabetic: No Tobacco smoker: No Systolic Blood Pressure: 110 mmHg Is BP treated: No HDL Cholesterol: 80 mg/dL Total Cholesterol: 253 mg/dL Left knee pain, chronic symptoms continue, seen recently by Orthopedics Dr. Cedillo for opinion. Had MRI knee completed which showed that she has significant OA changes under patella (patellafemoral compartment), otherwise mild medial and lateral compartment OA, no soft tissues tears. Going to try to do artificial joint fluid injections. Has option for a partial knee replacement in the future if symptoms are worsening. Right hip, hx of surgery and acetabular labral repair, getting low back stronger which seems to be helping hip pain as well. Has seen PHYSICAL THERAPY for this to help determine strengthening for low back. Hx of anemia, recently ferritin was elevated. She now has stopped her iron Osteoporosis, has started Avenity injections to help her density of bone PAST MEDICAL HISTORY Diagnosis Date Anemia, unspecified iron deficiency Breast cancer (HCC) 08/2017 Breast mass 06/2017 right breast Diffuse cystic mastopathy Helicobacter pylori infection Hiatal hernia Major depressive disorder, single episode, unspecified 1999 depressed year after 3rd child: treated for 1 year with Zoloft Meniere disease Dr. Marie ENT Panic disorder without agoraphobia periodic symptoms PAST SURGICAL HISTORY Procedure Laterality Date BREAST RECONSTRUCTION implants removed and replaced BX BREAST W/DEVICE 1ST LESION ULTRASOUND GUID Right 06/12/2017 3 nodules; 5cm, 3cm, 3cm COLONOSCOPY FLX DX W/COLLJ SPEC WHEN PFRMD 03/01/2018 Colonoscopy EGD N/A 11/05/2021 FOOT SURGERY HX Left 1982 Arch reshaping HIP SURGERY HX 01/08/2022 torn labrum, reshaped femoral head LAPAROSCOPIC SALPING/OOPHORECTOMY Right 02/24/2019 Dr. Jasmin Sosa MASTECTOMY, SIMPLE, COMPLETE Bilateral 08/18/2017 Dr. Johnson (reconstruction), Dr. 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 S[facility] TOTAL ABD HYSTERECTOMY+BLAD REPR N/A 2020 left ovary removed; Dr. Sosa-[facility]- total hysterectomy with rectocele and bladder sling Social History: Social History Tobacco Use Smoking status: Never Smokeless tobacco: Never Vaping Use Vaping Use: Never used Substance Use Topics Alcohol use: No Drug use: No FAMILY HISTORY Problem Relation Age of Onset Cancer Mother melanoma Hypertension Mother Lipids Mother Breast Cancer Mother 63 Diabetes Mother Arthritis Father Lipids Father High Triglycerides Heart Father ICD/pacer, CHF/s/p VT Diabetes Father Colon Cancer Paternal Grandmother Cancer Paternal Grandfather HCC-EtOH abuse Heart Maternal Uncle enlarged heart: cardiomyopathy Hypertension Brother Diabetes Sister Lipids Sister Ischemic Heart Disease Maternal Uncle Breast Cancer Other 49 maternal cousin (mothers-brothers child) Current Outpatient prescriptions: omeprazole (PRILOSEC) 20 mg capsule^Take 1 capsule by mouth once daily.^Disp: 90 capsule^Rfl: 3 albuterol HFA (VENTOLIN HFA) 90 mcg/actuation inhaler^Inhale 2 Puffs as instructed every 4 hours as needed for wheezing/shortness of breath.^Disp: 1 Each^Rfl: 0 romosozumab-aqqg (EVENITY) 105 mg/1.17 mL syrg syringe^Inject 210 mg subcutaneously once every month.^Disp: ^Rfl: GEMTESA 75 mg tablet^Take 75 mg by mouth once daily.^Disp: ^Rfl: venlafaxine ER (EFFEXOR XR) 37.5 mg 24 hr capsule^TAKE 1 CAPSULE ONCE DAILY^Disp: 90 capsule^Rfl: 3 COMPRESSION SLEEVE^as directed. Breast cancer. 20-30 mmHg^Disp: 2 Each^Rfl: 0 Lactobacillus acidophilus (PROBIOTIC ORAL)^Take by mouth.^Disp: ^Rfl: docusate sodium (COLACE) 100 mg capsule^Take by mouth.^Disp: ^Rfl: mecobalamin (B12 ACTIVE ORAL)^Take 1 tablet by mouth once daily.^Disp: ^Rfl: meloxicam (MOBIC) 15 mg tablet^Take 1 tablet by mouth once daily. For 14 days then as needed. Take with a meal^Disp: 30 tablet^Rfl: 1 CALCIUM CARBONATE/VITAMIN D3 (VITAMIN D-3 ORAL)^Take by mouth twice daily. ^Disp: ^Rfl: Allergies: ALLERGIES Allergen Reactions Penicillins Hives Other reaction(s): hives all over body ROS: See HPI PE: 03/10/23 0802 BP: 110/70 Pulse: 76 Resp: 16 Temp: (!) 35.8 C (96.5 F) TempSrc: Right Tympanic Weight: 61.2 kg (135 lb) Height: 160.5 cm (5' 3.19) Gen: A&O, NAD, non-toxic appearing, Pleasant, cooperative HEENT: NT/AC, PERRLA, EOMs intact b/l, nares clear and patent b/l, pharynx without erythema, exudate or lesions. Uvula midline. MMM, EACs without erythema or debris. TMs pearly collazo with intact landmarks b/l. Neck: supple, No cervical LAD, no thyromegaly, no carotid bruits CV: RRR, normal S1 and S2, no murmurs, no gallops, no rubs, Pulses 2+ and symmetric in UE and LE b/l Lungs: normal respiratory effort, CTA b/l, no wheezing or rhonchi or rales Abd: soft, NT, ND, +BS, no hepatosplenomegaly MS: improved ROM right hip, reduced ROM left knee due to pain Neuro: CN II-XII intact b/l, strength 5/5 b/l UE and LE, DTRs 2/4 UE and LE, sensation intact. Skin: warm, dry, intact, No rashes or lesions on exposed skin. ASSESSMENT/PLAN: 1. Well adult exam - ICD9: V70.0, ICD10: Z00.00 (primary diagnosis) - Counseled on healthy diet and regular exercise - Calcium intake with supplements or by diet of 1000 mg/day for under 50, 0288-5835 mg/day for 50+ 2. Dyslipidemia - ICD9: 272.4, ICD10: E78.5 - Uncontrolled - Counseled on healthy diet and regular exercise - Discussed need for and benefit of weight loss. BMI 23.77 kg/(m^2) - recommended cutting back on deli meats and red meats. - LIPID PANEL BASIC 3. Patellofemoral arthralgia of left knee - ICD9: 719.46, ICD10: M25.562 - f/u with Dr. Cedillo, continue exercises. 4. Chronic right-sided thoracic back pain - ICD9: 724.1, 338.29, ICD10: M54.6, G89.29 Chronic low back pain - Ice for localized tenderness - Warm moist heat for 20 min three times a day - NSAIDS- see orders 5. Osteoporosis, unspecified osteoporosis type, unspecified pathological fracture presence - ICD9: 733.00, ICD10: M81.0 - Reviewed the need for Calcium and Vitamin D supplements and weight bearing exercise as tolerated Continue SQ treatments Gallo Sanches DO To ER if develops chest pain, shortness of breath, or severe worsening of symptoms. Discussed risks, benefits, alternatives, and potential side effects of medications. Patient expressed understanding and agreed with the plan. Gallo Sanches DO [address] [place] [address] documented in this encounter [facility] 03-09-2023 Nurse Note The patient is here for an injection of Evenity 210 mg (105 mg/1.17 mL X2) INJECTION # 6 OF 12 Dose: 210 mg Route: Subcutaneous Lot# [id number] Expiration date 05/02/2025 [facility]: 64980-115-88 Given without incident. Site: left arm Dr. Smith present in clinic at time of injection. The date due for the next injection is in 30 days, on or after 04/09/2023. ZBIGNIEW: 07/14/2022 NOV: 04/07/2023 Insurance: Jose (ILEANA) LISSA 10/01/2022---09/30/2023 Labs: 05/30/22 Calcium 9.1, Vitamin D 68.4 DX: M81.8 CPT: J3111 DXA: 04/2022 (T-Score -3.2 Spine) Patient education was given by nurse. Patient tolerated Injection well, in NAD and no reactions noted. Medication supplied by [facility]. Adam Joy RN documented in this encounter [facility] 02-19-2023 Miscellaneous Notes Left detailed message on Learnerator. Please inform patient that labs are ordered and can tell her which ones as well /Gallo Sanches DO Patient is wondering about lab work orders before her appointment on 03/10, was also wondering what labs would be taken. Please review and contact patient. Thank you! documented in this encounter [facility] 02-09-2023 Note ORIGINAL EXAMINATION: MRI OF THE LEFT KNEE WITHOUT CONTRAST02/09/2023 11:16 am TECHNIQUE: Multiplanar multisequence MRI of the left knee was performed without the administration of intravenous contrast. COMPARISON: None HISTORY: ORDERING SYSTEM PROVIDED HISTORY: Reason for Exam: Pain in LT knee. Anterior knee pain. No recent injury. FINDINGS: MUSCLES, TENDONS, AND LIGAMENTS: The anterior cruciate ligament is intact. The posterior cruciate ligament is intact. The deep and superficial components of the medial collateral ligament are intact. However, there is mild periligamentous edema. The lateral collateral ligament complex is intact. The popliteus and biceps femoris tendons, iliotibial band, and extensor mechanism are intact. MENISCI: The medial meniscus is intact. The lateral meniscus is intact. OSSEOUS STRUCTURES AND JOINTS: No fracture or dislocation is evident. No visualized marrow replacing osseous lesions. Low-grade cartilage thinning is noted of the medial and lateral femorotibial compartments with marginal osteophyte formation. There is high-grade, near full-thickness chondral thinning involving the central aspect of lateral patellar facet, also involving the inferior aspect of the lateral facet. Minimal reactive subchondral marrow edema. High-grade chondral thinning also involves the median ridge, greatest inferiorly. High-grade chondral thinning of the superior and mid aspects of lateral femoral trochlea also. Deep articular cartilage fissuring of the trochlear groove. Mild lateral patellar subluxation. Normal tibial tuberosity-trochlear groove distance measures 1.3 cm. Trace volume effusion. SOFT TISSUES: No significant volume of fluid is evident in a popliteal cyst. Nonspecific mild prepatellar subcutaneous edema. Small ganglia are noted at the origins of medial and lateral gastrocnemius tendons. IMPRESSION: 1. Question low-grade sprain of medial collateral ligament. 2. Tricompartmental osteoarthrosis, most advanced of the patellofemoral compartment. Trace volume effusion. Interpreted by: Shailesh Rinaldi DO Preliminary Report By: Shailesh Rinaldi DO Electronically signed By Shailesh Rinaldi DO Dictated Date: 02/09/2023 2:45:52 PM Prelim Date: 02/09/2023 3:00:14 PM Sign Date: 02/09/2023 3:00:14 PM Ordering Provider: [facility] 02-09-2023 Note ORIGINAL EXAMINATION: MRI OF THE LEFT KNEE WITHOUT CONTRAST02/09/2023 11:16 am TECHNIQUE: Multiplanar multisequence MRI of the left knee was performed without the administration of intravenous contrast. COMPARISON: None HISTORY: ORDERING SYSTEM PROVIDED HISTORY: Reason for Exam: Pain in LT knee. Anterior knee pain. No recent injury. FINDINGS: MUSCLES, TENDONS, AND LIGAMENTS: The anterior cruciate ligament is intact. The posterior cruciate ligament is intact. The deep and superficial components of the medial collateral ligament are intact. However, there is mild periligamentous edema. The lateral collateral ligament complex is intact. The popliteus and biceps femoris tendons, iliotibial band, and extensor mechanism are intact. MENISCI: The medial meniscus is intact. The lateral meniscus is intact. OSSEOUS STRUCTURES AND JOINTS: No fracture or dislocation is evident. No visualized marrow replacing osseous lesions. Low-grade cartilage thinning is noted of the medial and lateral femorotibial compartments with marginal osteophyte formation. There is high-grade, near full-thickness chondral thinning involving the central aspect of lateral patellar facet, also involving the inferior aspect of the lateral facet. Minimal reactive subchondral marrow edema. High-grade chondral thinning also involves the median ridge, greatest inferiorly. High-grade chondral thinning of the superior and mid aspects of lateral femoral trochlea also. Deep articular cartilage fissuring of the trochlear groove. Mild lateral patellar subluxation. Normal tibial tuberosity-trochlear groove distance measures 1.3 cm. Trace volume effusion. SOFT TISSUES: No significant volume of fluid is evident in a popliteal cyst. Nonspecific mild prepatellar subcutaneous edema. Small ganglia are noted at the origins of medial and lateral gastrocnemius tendons. IMPRESSION: 1. Question low-grade sprain of medial collateral ligament. 2. Tricompartmental osteoarthrosis, most advanced of the patellofemoral compartment. Trace volume effusion. Interpreted by: Shailesh Rinaldi DO Preliminary Report By: Shailesh Rinaldi DO Electronically signed By Shailesh Rinaldi DO Dictated Date: 02/09/2023 2:45:52 PM Prelim Date: 02/09/2023 3:00:14 PM Sign Date: 02/09/2023 3:00:14 PM Ordering Provider: [facility] 02-06-2023 Nurse Note The patient is here for an injection of Evenity 210 mg (105 mg/1.17 mL X2) INJECTION # 5 OF 12 Dose: 210 mg Route: Subcutaneous Lot# [id number] Expiration date 05/02/2025 [facility]: 05459-068-01 Given without incident. Site: left arm Dr. Smith present in clinic at time of injection. The date due for the next injection is in 30 days, on or after 03/09/2023. ZBIGNIEW: 07/14/2022 NOV: Will need 03/2023 Insurance: Jose (ILEANA) LISSA 10/01/2022---09/30/2023 Labs: 05/30/22 Calcium 9.1, Vitamin D 68.4 DX: M81.8 CPT: J0897 DXA: 04/2022 (T-Score -3.2 Spine) Patient education was given by nurse. Patient tolerated Injection well, in NAD and no reactions noted. Medication supplied by [facility]. Adam Joy RN documented in this encounter [facility] 02-05-2023 History of Presen t illness Narrative UNIVERSAL PROTOCOL / SAFETY CHECKLIST Procedure to be Performed: EMG Sign In: A Moment of CARE was completed. Personnel directly involved with the procedure wore the appropriate PPE (Personal Protective Equipment). Patient/Surrogate Stated/Verified: PATIENT VERIFIED(optional for EMERGENT procedures): Patient name, Date of , Relevant allergies, and The intended procedure Time Out Communication: Intended patient and procedure match the source documents. Correct side/site marked and visible. Sign Out: SIGN OUT (optional for EMERGENT procedures): Post-procedure follow-up management communicated and Plan of Care Visit completed when applicable. Joy Jacobo, EMG Tech Bennie Spicer MD documented in this encounter [facility] 01-30-2023 History of Presen t illness Narrative Episode Visit Count: 17 Therapist That Will Accept/Oversee The Plan Of Care: Salas Sherman Start of Care Date: 09/11/22 Onset Date: 07/11/22 REHABILITATION AND SPORTS THERAPY PHYSICAL THERAPY PROGRESS REPORT PLAN OF CARE UPDATE: Assessment: Greyson Rojas demonstrates minimal improvement in heavy exertion, physical activities, and recreational activities. She has progressed toward goals. Patient continues to present with impairments in overall function, strength, and symptom management that interfere with standing, walking, stair negotiation, bending, heavy exertion, lifting, physical activities, recreational activities . Current prognosis is Good due to: current objective clinical presentation, good overall health status, positive past response to therapy, good support system/ coping skills . She will benefit from continued skilled therapy services to meet the updated goals for this plan of care as noted below. Goals updated on 01/30/2023. Goals for Episode of Care: created on 09/11/22 through 11/09/22 [place] in home exercise program. Met, on-going Patient will decrease pain rating by 2 points to meet minimal clinical important difference for numeric pain rating scale. Not met Patient will increase active ROM of R hip to WNL pain free to allow pt to to improve performance of ADLs. Not met Patient will demonstrate increase in R hip strength to 5/5 during manual muscle testing in order to improve function for leisure / recreation skills, moderate to heavy functional tasks, prior functional tasks, and work tasks. Not met Perform Recreational tasks and work tasks with decreased report of symptoms/pain in 8-12 weeks. Not met Perform self care, ADLs without pain. Partially met Patient will improve active knee range of motion to WNL for improved pain and tolerance for ADLs. Improving Planned Interventions, Frequency, and Duration: 1x/month, 4 weeks Total Number of Visits Planned: 1 Patient to be seen for Therapeutic exercise ([id number]), Neuromuscular re-education ([id number]), Manual therapy (55767), Therapeutic activities ([id number]), Self-group home management ([id number]), Patient/Family/Caregiver Education, Body Mechanics Training PLAN FOR NEXT VISIT: Core strengthening progression per tolerance SUBJECTIVE: Patient Reason for Visit: MRI of hip showed no labral tearing. Back is slowly getting better, but. Functional Limitations: standing, walking, stair negotiation, bending, heavy exertion, lifting, physical activities, recreational activities Pain: Pain Pain Level: 4 Pain Location: Hip - Right, Low Back/Lumbar Spine - Right Description: Sore, Tightness, Aching Frequency: Intermittent PROMIS Scales Higher is Better 11/11/2022 09/29/2022 01/08/2022 Phys Func - Score 36 (moderate dysfunction) 44 (mild dysfunction) 29 (severe dysfunction) Phys Func - Percentile 8 % 27 % 2 % Self-Eff Symptom - Score - 49 (Average) 50 (Average) Self-Eff Symptom - Percentile - 46 % 50 % T-scores: mean of general population = 50. 5 points is clinically meaningfully difference Percentiles provide an indication of how the patient's score ranks in relation to the general population. Higher percentile rankings indicate better function/quality of life. 50th percentile is the average of the general population and indicates half of respondents had a worse score. OBJECTIVE MEASURES WITH LEVEL OF FUNCTION: LE Strength Trunk Strength: 4+/5 R LE Strength: 4+/5 L LE Strength: 5/5 TREATMENT: Therapeutic Exercise: 2: Bird dogs x10/side (Adding light hand weight for HEP) 3: Nely abdominal bracing x10, 10 sec holds 4: Hip hinge form with and without stick x10 each with extensive cuing for form 5: DB deadlifts 10# x8 6: PiTB pallof press 3x10/side 7: *GTB stir the pot 2x10/side 8: *GTB lifts and chops 2x10/side each Skilled Intervention: Patient was educated in proper exercise technique and purpose for exercises. Skilled judgment was provided in selection of appropriate interventions. Provided written instruction for home exercise program to facilitate proper performance and compliance. Correct performance of therapeutic exercises was facilitated with verbal, visual, and tactile cuing. Billing Therapeutic Exercise Treatment Minutes: 42 Total Treatment Time Minutes (timed/untimed): 42 Salas Sherman PT documented in this encounter [facility] 01-22-2023 Telephone encounter Note Order placed, please help her schedule EMG/NCT at [place] or [facility] Gallo Sanches DO [facility] 01-22-2023 Miscellaneous Notes Order placed, please help her schedule EMG/NCT at [place] or [facility] Gallo Sanches DO Patient called and notified of provider recommendations. Please place order for EMG. Please review and advise, Ceci Miranda RN Left message to return call. Please inform patient I am okay with her doing both, ordering EMG for lower extremity and seeing Orthopedics for opinion Gallo Sanches DO Images from the original note were not included. Greyson Rojas Wstr Famp My Chart Rx Pool Dr. Sanches I was wondering why I should go back to orthopedics at this point. I thought I you were going to order an EMG test if nothing showed up on the hip MRI. Also I wondered if maybe I should just go to an arthritis doctor instead since my knees are still hurting even after an injection. I just don t want to waist more time if this is just the way it s going to be due to more arthritis. Also have you heard of .Pelvic core neuromuscular system (PCNS) dysfunction ? I have been researching my issues and this is something I came across. Much of what is in y in that is what I current have gout on. Just wondered your thoughts about this. Clementina Rojas Follow up (Newest Message First) Greyson Rojas Wstr Famp My Chart Rx Pool (supporting Gallo Sanches DO) 1 hour ago (2:27 PM) Dr. Sanches I was wondering why I should go back to orthopedics at this point. I thought I you were going to order an EMG test if nothing showed up on the hip MRI. Also I wondered if maybe I should just go to an arthritis doctor instead since my knees are still hurting even after an injection. I just don t want to waist more time if this is just the way it s going to be due to more arthritis. Also have you heard of .Pelvic core neuromuscular system (PCNS) dysfunction ? I have been researching my issues and this is something I came across. Much of what is in y in that is what I current have gout on. Just wondered your thoughts about this. Clementina Rojas documented in this encounter [facility] 01-21-2023 Telephone encounter Note Patient called and notified of provider recommendations. Please place order for EMG. Please review and advise, Ceci Miranda RN [facility] 01-21-2023 Telephone encounter Note Left message to return call. [facility] 01-21-2023 Telephone encounter Note Please inform patient I am okay with her doing both, ordering EMG for lower extremity and seeing Orthopedics for opinion Gallo Sanches DO [facility] 01-19-2023 Miscellaneous Notes See telephone note. documented in this encounter [facility] 01-19-2023 Telephone encounter Note Images from the original note were not included. Greyson Rojasp My Chart Rx Pool Dr. Sanches I was wondering why I should go back to orthopedics at this point. I thought I you were going to order an EMG test if nothing showed up on the hip MRI. Also I wondered if maybe I should just go to an arthritis doctor instead since my knees are still hurting even after an injection. I just don t want to waist more time if this is just the way it s going to be due to more arthritis. Also have you heard of .Pelvic core neuromuscular system (PCNS) dysfunction ? I have been researching my issues and this is something I came across. Much of what is in y in that is what I current have gout on. Just wondered your thoughts about this. Clementina Rojas Follow up (Newest Message First) Greyson Rojas Wsandres Famp My Chart Rx Pool (supporting Galol Sanches DO) 1 hour ago (2:27 PM) Dr. Sanches I was wondering why I should go back to orthopedics at this point. I thought I you were going to order an EMG test if nothing showed up on the hip MRI. Also I wondered if maybe I should just go to an arthritis doctor instead since my knees are still hurting even after an injection. I just don t want to waist more time if this is just the way it s going to be due to more arthritis. Also have you heard of .Pelvic core neuromuscular system (PCNS) dysfunction ? I have been researching my issues and this is something I came across. Much of what is in y in that is what I current have gout on. Just wondered your thoughts about this. Clementina Rojas [facility] Work Phone: 01-19-2023 Miscellaneous Notes See pt message. I do not see any other images completed of the pelvis. Susan Scott Ma documented in this encounter [facility] 01-15-2023 History of Presen t illness Narrative Radiology Service Progress Note PATIENT NAME: Greyson Rojas DATE OF SERVICE: January 15, 2023 TIME: 8:31 AM PATIENT IDENTITY VERIFICATION COMPLETED USING TWO (2) IDENTIFIERS: Name and Date of confirmed by patient verbally. FALL SCREENING: Has the patient had 2 falls in the last year or 1 fall with injury or currently using an Ambulatory Assistive Device (Walker, Cane, Wheelchair, Crutches, etc.)? No PATIENT GENDER DATA: Female. status: : No status: NO. PATIENT RELEVANT IMPLANT DATA REVIEWED: Yes RADIOLOGY DEPARTMENT: MR; Exam(s) Completed: Lower MSK: Hip, right PERIPHERAL IV DATA: Not applicable SIGNED BY: RT Mayito(R) January 15, 2023 8:31 AM documented in this encounter [facility] 01-07-2023 Nurse Note The patient is here for an injection of Evenity 210 mg (105 mg/1.17 mL X2) INJECTION # 3 OF 12 Dose: 210 mg Route: Subcutaneous Lot# [id number] Expiration date 01/2025 [facility]: 14590-998-16 Given without incident. Site: left arm Dr. Wisdom present in clinic at time of injection. The date due for the next injection is in 30 days, on or after 02/06/2023. ZBIGNIEW: 07/14/2022 NOV: Will need 03/2023 Insurance: [employer] ([employer] 10/01/2022---09/30/2023 Labs: 05/30/22 Calcium 9.1, Vitamin D 68.4 DX: M81.8 CPT: J0897 DXA: 04/2022 (T-Score -3.2 Spine) Patient education was given by nurse. Patient tolerated Injection well, in NAD and no reactions noted. Medication supplied by [facility]. documented in this encounter [facility] 01-02-2023 History of Presen t illness Narrative Associated Order(s): Large Joint Arthro/Inj: L knee joint Post-Procedure Diagnose(s): Primary osteoarthritis of left knee CHIEF COMPLAINT: Greyson Rojas is a 52 year old female who presents today for new evaluation of left lateral knee pain. HISTORY OF PRESENT ILLNESS: She states that this pain has been present for the past 6 years. She notes the pain to be worsening over time. Patient denies any symptoms of mechanical instability.. Patient notes intermittent swelling of the joint.. She notes aggravating factors of bending or twisting motions, deep squatting, management or change of inclines, rapid change of direction, and regular daily ambulation. She notes alleviating factors of avoidance of overactivity and ice. She notes hesitency to use the joint and concern to return to normal daily activities. 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 Treatments so far have included medication (Ibuprofen and Mobic), physical therapy (completed in the past- continues self directed yoga program), and injection (steroid injection to the left knee years ago she does not recall how well it worked and viscosupplement injection). Clementina has given up jogging ang cut back on Yoga secondary to the pain REVIEW OF SYMPTOMS: Constitutional: patient denies any recent fever or significant change in weight Gastrointestinal: patient denies any current abdominal discomfort Musculoskeletal: as noted in the HPI Neurologic: patient denies any peripheral numbness or radiation of pain SOCIAL HISTORY: Tobacco Use: Never ALLERGIES: ALLERGIES Allergen Reactions Penicillins Hives Other reaction(s): hives all over body PAST MEDICAL HISTORY: PAST MEDICAL HISTORY Diagnosis Date Anemia, unspecified iron deficiency Breast cancer (HCC) 08/2017 Breast mass 06/2017 right breast Diffuse cystic mastopathy Helicobacter pylori infection Hiatal hernia Major depressive disorder, single episode, unspecified 1999 depressed year after child: treated for 1 year with Zoloft Meniere disease Dr. Marie ENT Panic disorder without agoraphobia periodic symptoms PHYSICAL EXAMINATION: Patient's vitals and nursing notes were reviewed. Vitals: Ht 5' 3.504 (1.61m) Wt 132 lb (59.9kg) LMP 06/08/2020 BMI 23.01 kg/(m^2). General Appearance: Well appearing, alert, in no acute distress Skin: Skin color, texture, turgor normal, no suspicious rashes or lesions noted Psychiatric: mood and affect are appropriate, patient is oriented to time, place and person General Appearance: Well appearing, alert, in no acute distress, well-hydrated, and well nourished Cardiovascular: pedal pulses and radial pulses normal, no signs of upper or lower extremity edema Respiratory: no respiratory distress, no audible wheezing, no labored breathing, symmetric thoracic excursion Neurologic: bilateral deep tendon reflexes are normal and symmetric with no pathologic reflexes, sensation is grossly intact Lymphatic: no lymph node enlargement noted in the examined area Knee Examination Left Knee Skin Positive: swelling. Effusion 1+ effusion Alignment normal Range of motion 0-0-120 degrees Quadriceps examination quad weakness of both legs with a muscle strength of 4+/5 Patellar examination Normal patellar mobility Positive patellar grind testing Tenderness lateral joint line and lateral patellar facet Meniscus Negative medial and lateral Ling's/Thessaly's testing Stability Collateral and cruciate knee ligaments (ACL/PCL/LCL/MCL) are all intact with no significant laxity noted bilaterally Additional Testing no significant restriction in hip range of motion and no contribution to the knee complaints today IMAGING: Previous imaging performed on 10/31/22, and available in the [facility] health record, showed moderate degenerative changes of the left knee with sclerosis, squaring off of the femoral condyle and osteophytes in all 3 compartments. CLINICAL IMPRESSION / ASSESSMENT: No diagnosis found. RECOMMENDATION / PLAN: Injection performed as detailed in the procedure note below. Large Joint Arthro/Inj: L knee joint Informed Consent Consent Obtained: Verbal Jennings Protocol A moment to CARE was completed. SIGN IN Personnel directly involved with the procedure wore the appropriate PPE. Special Equipment: N/A Patient/Surrogate Stated/Verified: Patient name, Date of , Relevant allergies and Intended procedure TIME OUT Intended patient and procedure match the source document(s). Consent documented and matches the intended procedure. Relevant labs, photos, and/or imaging studies have been reviewed. Correct side/site marked and visible. Medications required for procedure verified. No fire risk assessment and interventions applicable. No implant(s) inserted. 01/02/2023 4:56 PM The procedure site was prepped in the usual sterile fashion. Site: L knee joint Medications: 12 mg betamethasone acetate-betamethasone sodium phosphate 6 mg/mL Anesthetics: 3 mL lidocaine (PF) 10 mg/mL (1 %) Outcome: Tolerated well, no immediate complications Post-injection instructions were reviewed with the patient and the patient voiced understanding of these instructions. SIGN OUT No instruments, equipment or retained foreign bodies applicable. Follow up: 2-3 months Films prior to visit: If this regimen does not provide pain relief, we will investigate further with advanced imaging. Verbal health education was given to patient. Patient verbalizes understanding and agrees with the treatment plan as detailed above. Prasad Chavez PA-C documented in this encounter [facility] 12-30-2022 Instructions Ceci Nava PA-C - 12/30/2022 7:16 AM EDT Images from the original note were not included. Bowel Preparation Instructions for: Miralax-Gatorade Preparations IF YOU DO NOT FOLLOW THESE DIRECTIONS, YOUR COLONOSCOPY WILL BE CANCELLED. Phillips Instructions: Your bowel must be empty so that your doctor can clearly view your colon. Follow all of the instructions in this handout EXACTLY as they are written. Do NOT eat any solid food the ENTIRE day before your colonoscopy. Buy your bowel preparation at least 5 days before your colonoscopy. Four (4) Dulcolax laxative tablets containing 5mg of bisacodyl each (NOT Dulcolax stool softener) One (1) 8.3oz. bottle Miralax (238 grams) or generic equivalent 2 x 32oz. Bottles of Gatorade (NOT RED) Diabetic Patients: Use G2 (Gatorade 2) TRANSPORTATION on the Day of Your Exam A responsible adult MUST be present with you at Check In prior to your colonoscopy and REMAIN in the endoscopy area until you are discharged. You are NOT ALLOWED to drive, take a taxi or bus, or leave the Endoscopy Center ALONE. If you do not have a responsible otr van cdl truck driver (family member or friend) with you to take you home, your exam cannot be done with sedation and will be cancelled. Please bring a list of all of your current medications, including any Nrws-edp-Ulibckg medications with you. Medications If you take insulin, diabetic medications or blood thinners such as Coumadin (warfarin), Plavix (clopidogrel), Ticlid (ticlopidine hydrochloride), Agrylin (anagrelide), Xarelto (Rivaroxaban), Pradaxa (Dabigatran), Eliquis (Apixaban), and Effient (Prasugrel). You MUST call the doctors who orders those medicines for instructions on altering the dosage before your colonoscopy. All other medications should be taken the day of the exam with a sip of water including ASPIRIN. Five (5) Days Before Your Colonoscopy Do NOT take medicines that stop diarrhea - such as Imodium, Kaopectate, or Pepto Bismol. Do NOT take fiber supplements - such as Metamucil, Citrucel, or Perdiem. Do NOT take products that contain iron - such as multi-vitamins (the label lists what is in the products). Three (3) Days Before Your Colonoscopy Do NOT eat high-fiber foods - such as popcorn, beans, seeds (flax, sunflower, quinoa), multigrain bread, nuts, salad/vegetables, or fresh and dried fruit. 1 Bowel Preparation Instructions for: Miralax-Gatorade Preparations One (1) Day Before Your Colonoscopy Only drink clear liquids the ENTIRE DAY before your colonoscopy. Do NOT eat any solid foods. Drink at least 8 ounces of clear liquids every hour after waking up. The clear liquids you can drink include: Clear Liquid (NO RED LIQUIDS) DO NOT DRINK Gatorade, Pedialyte or Powerade Clear broth or bouillon Coffee or tea (no milk or non-dairy creamer) Carbonated and non-carbonated soft drinks Octavio-Aid or other fruit flavored drinks Strained fruit juices (no pulp) Jell-O, popsicles, hard candy Water Alcohol Milk or non-dairy creamers Noodles or vegetables in soup Juice with pulp Liquid you cannot see through Do not use tobacco/vaping products Mix 1/2 of Miralax bottle (119 grams) in each 32 ounces of Gatorade bottle until dissolved. Keep cool in the refrigerator. DO NOT ADD ICE. The bowel preparation solution will be consumed in two parts. Part 1 5:00 PM - Evening before your colonoscopy Take 4 Dulcolax tablets. 6 PM - Evening before your colonoscopy Drink 32 oz. of the mixed solution. Drink an 8 oz. glass of bowel preparation every 15 minutes for a total of 4 glasses. Fifteen (15) minutes later, drink an 8 oz. glass of of clear liquids every 15 minutes for a total of 2 glasses. You may continue to drink clear liquids till midnight. Part 2 On the day of your colonoscopy you may drink clear liquids up to (three) 3 hours prior to procedure. 4 1/2 hours before your colonoscopy Take another 32 oz. bottle of mixed solution. Drink an 8 oz. glass of bowel prep every 15 minutes for a total of 4 glasses. Fifteen (15) minutes later, drink an 8 oz. glass of clear liquids every 15 minutes for a total of 2 glasses. You may continue to drink clear liquids up to (three) 3 hours before your exam. 2 07/2019 documented in this encounter [facility] 12-30-2022 Miscellaneous Notes Colonoscopy order placed. documented in this encounter [facility] 12-12-2022 History of Presen t illness Narrative Episode Visit Count: 14 Therapist That Will Accept/Oversee The Plan Of Care: Salas Sherman Start of Care Date: 09/11/22 Onset Date: 07/11/22 [facility] THERAPY PHYSICAL THERAPY TREATMENT NOTE ASSESSMENT: Greyson Rojas tolerated the session with no issues. She demonstrated improvements in hip hinge form. The patient will continue to benefit from ongoing skilled physical therapy to progress toward set goals. PLAN FOR NEXT VISIT: Continue with strength progression SUBJECTIVE: Patient Reason for Visit: Pt doing well today. Feels like exercises are helping. Has not done much Yoga Pain: Pain Pain Level: 5 Pain Location: Low Back/Lumbar Spine - Right, Hip - Right Description: Aching, Sore, Tightness Frequency: Continuous OBJECTIVE MEASURES WITH LEVEL OF FUNCTION: Improved form with bird dogs TREATMENT: Therapeutic Exercise: 2: Bird dogs 3x10/side 3: Nely abdominal bracing 3x10, 10 sec holds (Advanced progression today) 4: Hip hinge form with and without stick 3x10 each with extensive cuing for form 5: *GTB pallof press 3x10/side 6: *GTB straight arm extensions 3x10 Skilled Intervention: Patient was educated in proper exercise technique and purpose for exercises. Skilled judgment was provided in selection of appropriate interventions. Provided written instruction for home exercise program to facilitate proper performance and compliance. Correct performance of therapeutic exercises was facilitated with verbal, visual, and tactile cuing. Billing Therapeutic Exercise Treatment Minutes: 30 Total Treatment Time Minutes (timed/untimed): 30 Salas Sherman PT documented in this encounter [facility] 12-10-2022 Miscellaneous Notes Rectal manometry test ordered. documented in this encounter [facility] 12-05-2022 History of Presen t illness Narrative RADIOLOGY SERVICE PROGRESS NOTE SERVICE DATE: 12/05/2022 SERVICE TIME: 12:05 PM PATIENT IDENTITY VERIFICATION COMPLETED USING TWO (2) STANDARD IDENTIFIERS: Name and Date of confirmed by patient verbally FALL SCREENING: Has the patient had 2 falls in the last year or 1 fall with injury or currently using an Ambulatory Assistive Device (Walker, Cane, Wheelchair, Crutches, etc.)? No PATIENT GENDER DATA: .female : No status: No ALLERGIES: Reviewed and unchanged MEDICATIONS REVIEWED: No PATIENT RELEVANT IMPLANT DATA REVIEWED: Not Applicable CREATININE: Creatinine Date Value Ref Range Status 05/30/2022 1.00 (H) 0.58 - 0.96 mg/dL Final 02/17/2022 0.76 0.58 - 0.96 mg/dL Final 12/16/2021 0.73 0.58 - 0.96 mg/dL Final Estimated Glomerular Filtration Rate Date Value Ref Range Status 05/30/2022 67 >=60 mL/min/1.73m Final Comment: Estimated Glomerular Filtration Rate (eGFR) is calculated using the 2020 CKD-EPI creatinine equation. This equation utilizes serum creatinine, sex, and age as parameters. The creatinine assay has traceable calibration to isotope dilution-mass spectrometry. Refer to KDIGO guidelines for clinical interpretation. In patients with unstable renal function, e.g. those with acute kidney injury, the eGFR may not accurately reflect actual GFR. eGFR- Date Value Ref Range Status 07/09/2021 >60 Final P.O.C.T. RESULTS: N/A December 05, [address] PERFORMED: No IV SITE: NM only - not applicable, oral or physician administered agents given to patient POST EXAM PIV STATUS: Not applicable PROCEDURE TYPE: NM GET: 1.03 mCi Tc99m SULFUR COLLOID was administered orally via 4 ounces of Egg Beaters,2 pieces of toast, 1 ounce of jelly with 8 ounces of water orally ADMINISTRATION TIME: 12:15 PATIENT DISCHARGED TO: Ambulatory patient, left MS department area. A Diagnostic radioactive procedure has taken place, with no further precautions necessary other than routine body substance precautions. More information regarding radiation safety can be found using this link: [email or web address] SIGNATURE: RT Chapo(Radha) PATIENT NAME: Greyson Rojas DATE: December 05, 2022 TIME: 1:18 PM PAGER/CONTACT #: documented in this encounter [facility] 12-04-2022 History of Presen t illness Narrative The patient is here for an injection of Evenity 210 mg (105 mg/1.17 mL X2) INJECTION # 3 OF 12 Dose: 210 mg Route: Subcutaneous Lot# [id number] Expiration date 01/2025 [facility]: 80288-238-00 Given without incident. Site: left arm Dr. Victoria present in clinic at time of injection. The date due for the next injection is in 30 days, on or after 01/04/2023. ZBIGNIEW: 07/14/2022 NOV: Will need 03/2023 Insurance: [email or web address] [place] 10/01/2022---09/30/2023 Labs: 05/30/22 Calcium 9.1, Vitamin D 68.4 DX: M81.8 CPT: J0897 DXA: 04/2022 (T-Score -3.2 Spine) Patient education was given by nurse. Patient tolerated Injection well, in NAD and no reactions noted. Medication supplied by [facility]. Gisselle Cai RN documented in this encounter [facility] 12-01-2022 Miscellaneous Notes Patient already aware of thoracic spine MRI Gallo Sanches DO documented in this encounter [facility] 11-28-2022 History of Presen t illness Narrative Episode Visit Count: 13 Therapist That Will Accept/Oversee The Plan Of Care: Salas Sherman Start of Care Date: 09/11/22 Onset Date: 07/11/22 REHABILITATION AND SPORTS THERAPY PHYSICAL THERAPY TREATMENT NOTE ASSESSMENT: Greyson Rojas tolerated the session with no issues. She demonstrated difficulty with core strengthening exercises and hip hinge form. The patient will continue to benefit from ongoing skilled physical therapy to progress toward set goals. PLAN FOR NEXT VISIT: May add weight to hip hinge SUBJECTIVE: Patient Reason for Visit: Pt had MRI of lumbar spine and severe mm atrophy noted in lower lumbar spine mm. Pain: Pain Pain Level: 6 Pain Location: Low Back/Lumbar Spine - Right, Hip - Right Description: Aching, Sore, Tightness Frequency: Continuous OBJECTIVE MEASURES WITH LEVEL OF FUNCTION: Extensive cuing for proper hip hinge form TREATMENT: Therapeutic Exercise: 2: *Bird dogs 3x10/side 3: *Nely abdominal bracing 3x10, 10 sec holds 4: *Hip hinge form with and without stick 3x10 each with extensive cuing for form 5: Reviewed hip exercises to continue for HEP Skilled Intervention: Patient was educated in proper exercise technique and purpose for exercises. Skilled judgment was provided in selection of appropriate interventions. Provided written instruction for home exercise program to facilitate proper performance and compliance. Correct performance of therapeutic exercises was facilitated with verbal, visual, and tactile cuing. Patient education as noted. Billing Therapeutic Exercise Treatment Minutes: 40 Total Treatment Time Minutes (timed/untimed): 40 Salas Sherman PT documented in this encounter [facility] 11-27-2022 Miscellaneous Notes Results sent via [employer] message at this time PT order signed off Images from the original note were not included. Dr. Ugarte reviewed patient's MRI of the Thoracic and Lumbar Spine Dr. Ugarte notes mild degenerative in both throacic and lumbar spine No significant narrowing noted Mild accentuation fo the normal thoracic kyphosis. Patient should focus on posture. Mild disc space narrowing in both thoracic and lumbar spine, age consistent. Minimal bulging discs of lower lumbar spine, no bryson nerve impingement noted Patient has very weak low back muscles Dr. Uagrte states patient needs to focus on rebuilding low back muscles and improving posture in the thoracic region Order for physical therapy pended to provider at this time documented in this encounter [facility] 11-25-2022 Florencia M Aleksandar Azevedo PA-C - 11/25/2022 4:25 PM EDT Facts About the Common Cold and Upper Respiratory Infection: Common symptoms include: sore throat, tender lymph nodes, low grade fever 99-101F for first few days, watery nasal drip that progresses to thick yellow-green mucus on blowing and on coughing, facial/sinus pressure, headache, chest tightness and tiredness/ fatigue. Usually they peak with the worst symptoms about 5-7 days and take another 5-7 days to clear, in other words 10-14 days. Occasionally there will be a persistent nagging cough or some residual minor nasal congestion up to several weeks. Viral infections are not susceptible to antibiotics. Due to the critical issues with global antibiotic resistance, we do not prescribe antibiotics if we suspect viral sources. Antibiotics can cause serious complications and therefore should be reserved for only serious infections. Get plenty of rest. Force fluids daily with water and juices. Nasal saline spray may help to keep nose open and moist: 2-3 squirts each side every few hours. This also help to rinse out virus and bacteria causing infection. Cool mist humidifier in room during sleep. May use OTC Tylenol or Ibuprofen as direct for discomfort. For sore throat, warm salt water gargles, Chlorseptic spray, lozenges or other OTC sore throat remedies may help. Decongestants such as plain Sudafed or with expectorant such as Mucinex D may help with nasal stuffiness or facial and sinus pressure. Generics are fine. These are over the counter but require an adult signature. Oxymetolazine nasal decongestants (Afrin, Dristan, Cesar's) may also help (in place of oral decongestants) but should not be used longer than 48-72 hours due to potential rebound congestion. OTC antihistamines such Benadryl (make cause drowsiness) or Zyrtec/ Clariten/ Yaima (non-drowsy) may help watery nasal drainage though they are generally not recommended because they dry mucus and make it sticky. The flow of mucus is important to help your body rid the virus. If cough keeps you awake at night, try OTC remedies first, such as Nyquil, Delsym, Cesar's 44 or Mucinex DM. If this doesn't help you sleep, call the office for a prescription. Be careful if you are combining cough and cold medications that you aren't doubling the medicines. If you aren't sure: ask the pharmacist for help. Cough or sneeze into your sleeve to prevent spread of infected secretions. Wash your hands frequently. Try not to cough or sneeze on surfaces others might touch. Albuterol inhaler as directed for cough or wheeze. Over the next few days you might use the inhaler 3-4 times/day routinely to help keep wheezing controlled, then go to use just as needed. Metered-Dose Inhaler: How to Use It Correctly How can I keep track of how much medicine I've used? It's important to keep track of how much medicine you've used so you can plan ahead and replace your inhaler before you run out of medicine. One way to do this is to write a refill date on the canister itself. To figure out when you'll need to get a refill, start with a brand new inhaler. Divide the number of puffs in the canister--the canister will usually have this number printed on it--by the number of puffs you take each day. The number you get will be the number of days the canister should last. (For example, if you take 4 puffs each day from a 200-puff canister, you will need to have a new canister every 50 days.) Using a calendar, count forward that many days to see when your medicine will run out. So you won't run out of the medicine that you use every day, choose a day 1 or 2 days before this date to have your prescription refilled. Using a permanent marker, write the refill date on the canister. If you use your inhaler for rescue medicine, you probably won't be using it regularly enough for this method to work. In that case, ask your doctor if he or she will write a prescription for two inhalers at a time. Then get your prescription filled when the first inhaler is empty. This way, you'll always have enough rescue medicine on hand when you need it most. How do I use the inhaler? Remove the cap and hold the inhaler upright. Shake the inhaler. Tilt your head back slightly and breathe out. Hold the inhaler about 2 fingers from your open mouth. Press down on the inhaler to release the medicine as you start to breathe in slowly. Breathe in slowly for 3 to 5 seconds. Hold your breath for 10 seconds to allow medicine to go deeply into your lungs. Repeat puffs as directed. Wait 1 minute between puffs to allow the second puff to get into the lungs better. Spacers are useful for all patients. They are very helpful for young children and older adults. They are also helpful to use with inhaled steroid medicines. NOTE: Inhaled dry powder capsules are used differently. To use a dry powder inhaler, close your mouth tightly around the mouthpiece of the inhaler and breathe in quickly. If unable to manage wheezing with inhaler, you may started prednisone as directed. You have been on one broad spectrum antibiotic, a second if less likely to be effective. If pain, worsening, start cefzil as directed. If you should breakout in a rash, stop the medicine and call the office. Any antibiotic has the potential to cause diarrhea due to alteration in the normal bacterial tika of the gut. This can be reduced by eating yogurt with active cultures daily while on the medication. If diarrhea becomes severe (watery, large volumes or more than 3-4/day) call the office. If you do not like yogurt, ask the pharmacist for a probiotic supplement such as lactobacillus or acidophillus. Women may experience yeast vaginitis due to alteration in the vaginal tika. Symptoms include vaginal itching, irritation, and often a clumpy white discharge. If this occurs, there are several effective over the counter remedies available, including one-dose treatments. If these are unsuccessful, call the office. Antibiotics may interfer with control. If you are on oral contraceptives, use another form of protection (condoms, foams, jellies, diaphragm) throught the end of whatever pill pack you are on in 10 days. If symptoms fail to improve in 5-7 days, fever > 100.5F, general worsening, or other concerning symptoms, return to [facility] or Gallo Sanches DO. documented in this encounter [facility] 11-25-2022 History of Presen t illness Narrative 52 year old female with c/o 11/19/2022 Saw Tootie Martinez [employer] SALES [employer]IST: Cough: Sneezing, runny eyes, scratchy throat, chest feels heavy, headache, congestion, cory ear pain x 5 days. Covid, Flu, RS, CXR all WNL Doxycycline, methylprednisone prescribed without significant improvement Currently feeling wheezy and coughing more. Sinus blowing out yellow. No inhaler. Constant pain in right frontal and maxillary like a vice FAMILY HISTORY Problem Relation Age of Onset Cancer Mother melanoma Hypertension Mother Lipids Mother Breast Cancer Mother 63 Diabetes Mother Arthritis Father Lipids Father High Triglycerides Heart Father ICD/pacer, CHF/s/p VT Diabetes Father Colon Cancer Paternal Grandmother Cancer Paternal Grandfather HCC-EtOH abuse Heart Maternal Uncle enlarged heart: cardiomyopathy Hypertension Brother Diabetes Sister Lipids Sister Ischemic Heart Disease Maternal Uncle Breast Cancer Other 49 maternal cousin (mothers-brothers child) PAST MEDICAL HISTORY Diagnosis Date Anemia, unspecified iron deficiency Breast cancer (HCC) 08/2017 Breast mass 06/2017 right breast Diffuse cystic mastopathy Helicobacter pylori infection Hiatal hernia Major depressive disorder, single episode, unspecified 1999 depressed year after 3rd child: treated for 1 year with Zoloft Meniere disease Dr. Marie ENT Panic disorder without agoraphobia periodic symptoms PAST SURGICAL HISTORY Procedure Laterality Date BREAST RECONSTRUCTION implants removed and replaced BX BREAST W/DEVICE 1ST LESION ULTRASOUND GUID Right 06/12/2017 3 nodules; 5cm, 3cm, 3cm COLONOSCOPY FLX DX W/COLLJ SPEC WHEN PFRMD 03/01/2018 Colonoscopy EGD N/A 11/05/2021 FOOT SURGERY HX Left 1981 Arch reshaping HIP SURGERY HX 01/08/2022 torn labrum, reshaped femoral head LAPAROSCOPIC SALPING/OOPHORECTOMY Right 02/24/2019 Dr. Jasmin Sosa MASTECTOMY, SIMPLE, COMPLETE Bilateral 08/18/2017 Dr. Johnson (reconstruction), Dr. 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 Sosa-[facility] TOTAL ABD HYSTERECTOMY+BLAD REPR N/A 2020 left ovary removed; Dr. 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 Pylori Infection Gastroesophageal Reflux Disease With Esophagitis Without Hemorrhage Cough Hoarseness Toña (Iron Deficiency Anemia) Acetabular Labrum Tear, Right, Subsequent Encounter Current Outpatient Medications Medication Sig Dispense Refill doxycycline (VIBRA-TABS) 100 mg tablet Take 1 tablet by mouth twice daily for 10 days. 20 tablet 0 methylPREDNISolone (MEDROL, JD,) 4 mg Dose-Pack Follow dosing instructions, take with food. 21 tablet 0 triamcinolone acetonide (NASACORT AQ) 55 mcg nasal inhaler Use 2 Sprays in the nose once daily. 16.9 mL 5 romosozumab-aqqg (EVENITY) 105 mg/1.17 mL syrg syringe Inject 210 mg subcutaneously once every month. meloxicam (MOBIC) 15 mg tablet Take 1 tablet by mouth once daily. For 14 days then as needed. Take with a meal 30 tablet 1 GEMTESA 75 mg tablet Take 75 mg by mouth once daily. venlafaxine ER (EFFEXOR XR) 37.5 mg 24 hr capsule TAKE 1 CAPSULE ONCE DAILY 90 capsule 3 COMPRESSION SLEEVE as directed. Breast cancer. 20-30 mmHg 2 Each 0 omeprazole (PRILOSEC) 20 mg capsule Take 1 capsule by mouth once daily. 90 capsule 3 Lactobacillus acidophilus (PROBIOTIC ORAL) Take by mouth. docusate sodium (COLACE) 100 mg capsule Take by mouth. mecobalamin (B12 ACTIVE ORAL) Take 1 tablet by mouth once daily. CALCIUM CARBONATE/VITAMIN D3 (VITAMIN D-3 ORAL) Take by mouth twice daily. Current Facility-Administered Medications Medication Dose Route Frequency Provider Last Rate Last Admin romosozumab-aqqg 210 mg injection (EVENITY) 210 mg SUBCUTANEOUS q 1 MONTH Esme Wisdom MD 210 mg at 11/04/22 1055 HEPATITIS B(2 of 3 - 19+ 3-dose series) due on 07/07/2008 DTAP,TDAP,TD(2 - Tdap) due on 05/21/2014 PAP TESTING due on 03/19/2023 HPV TESTING due on 03/19/2023 EXAM: BP 128/72 Pulse 83 Resp 16 Wt 59 kg (130 lb) LMP 06/08/2020 (Approximate) SpO2 100% BMI 22.67 kg/m Pleasant well appearing adult woman in no acute distress. Alert and oriented all spheres. Normal affect and cognition. Speech normal. No deficits to learning or comprehension. Skin warm, dry, pink to lips and nailbeds. Normal turgor. Respirations regular and unlabored. HEENT: NCAT. No scleral icterus or conjunctival injection. TM's clear. Nose and oropharynx free from injection or lesion. No active drainage. Tender over right maxillary and frontal sinus. _ tenderness in right and left TMJ trigger points. Oral membranes moist and pink. No cervical lymph nodes. Thyroid non-tender, no masses, or enlargement. Carotids pulses 2+/4+ without bruits. No JVD with HOB at 30 degrees. Chest is normal shape. Lungs are clear to all villeda with good air exchange through out. Wheezy cough. HRRR without murmur or gallop. No lifts, heaves, or rubs. Extrem: no clubbing or cyanosis. Edema: none. Extremities are warm and pink with prompt capillary refill. ASSESSMENT/PLAN: 1. Sinobronchitis - ICD9: 473.9, 490, ICD10: J32.9, J40 Strongly suspect viral etiology and reviewed failure already with one broad spectrum ATB Nasal saline, decongestant, cool mist, rest , fluids Recommend Flonase OTC. Tiered approach: start with bronchodilator MDI If not improving wheeze, add prednisone burst. If fever > 100.0F or significant change with focal pain, active pus dripping from nasal start Cefdinir Education on sinusitis and treatment recommendations, 98% viral etiology. Almost all sinusitis resolves with 3 weeks with or without treatment. - ALBUTEROL SULFATE HFA 90 MCG/ACTUATION AEROSOL INHALER - PREDNISONE 20 MG TABLET - CEFDINIR 300 MG CAPSULE Houston Azevedo PA-C documented in this encounter [facility] 11-24-2022 History of Presen t illness Narrative Radiology Service Progress Note PATIENT NAME: Greyson Rojas DATE OF SERVICE: November 24, 2022 TIME: 8:20 AM PATIENT IDENTITY VERIFICATION COMPLETED USING TWO (2) IDENTIFIERS: Name and Date of confirmed by patient verbally. FALL SCREENING: Has the patient had 2 falls in the last year or 1 fall with injury or currently using an Ambulatory Assistive Device (Walker, Cane, Wheelchair, Crutches, etc.)? No PATIENT GENDER DATA: Female. status: : No status: NO. PATIENT RELEVANT IMPLANT DATA REVIEWED: Yes RADIOLOGY DEPARTMENT: MR; Exam(s) Completed: Spine: Thoracic spine and Lumbar spine PERIPHERAL IV DATA: Not applicable SIGNED BY: RT Mayito(R) November 24, 2022 8:20 AM documented in this encounter [facility] 11-19-2022 History of Presen t illness Narrative Chief Complaint Patient presents with: Cough: Sneezing, runny eyes, scratchy throat, chest feels heavy, headache, congestion, cory ear pain x 5 days. HPI Greyson Rojas is a 52 year old female who presents here today for Above Complaints. Today: Thursday night started with scratchy throat feeling, has lost her voice, headache for a few days in between her eyebrows and in face. Cough has gotten deeper in intensity, unknown of the color, but has started with yellow nasal drainage last 2 days. Bilateral ear pain, right worse than the left. Nyquil, dayquil, benadryl, zyrtec has all been attempted with minimal relief besides short term. Appetite less over the last 5 days, but has been drinking lots of water. Hasn't had a fever at home (99.7 in office today). Denies shortness of breath. Heavy chest feeling is not like an elephant, but the congestion is worsening. Cough keeping her up at night as well even with elevating with pillows. 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 Past medical history, appointments, medications, allergies reviewed. Previous Medical History PAST MEDICAL HISTORY Diagnosis Date Anemia, unspecified iron deficiency Breast cancer (HCC) 08/2017 Breast mass 06/2017 right breast Diffuse cystic mastopathy Helicobacter pylori infection Hiatal hernia Major depressive disorder, single episode, unspecified 1999 depressed year after 3rd child: treated for 1 year with Zoloft Meniere disease Dr. Marie ENT Panic disorder without agoraphobia periodic symptoms Previous Surgical History PAST SURGICAL HISTORY Procedure Laterality Date BREAST RECONSTRUCTION implants removed and replaced BX BREAST W/DEVICE 1ST LESION ULTRASOUND GUID Right 06/12/2017 3 nodules; 5cm, 3cm, 3cm COLONOSCOPY FLX DX W/COLLJ SPEC WHEN PFRMD 03/01/2018 Colonoscopy EGD N/A 11/05/2021 FOOT SURGERY HX Left 1981 Arch reshaping HIP SURGERY HX 01/08/2022 torn labrum, reshaped femoral head LAPAROSCOPIC SALPING/OOPHORECTOMY Right 02/24/2019 Dr. Jasmin Sosa MASTECTOMY, SIMPLE, COMPLETE Bilateral 08/18/2017 Dr. Johnson (reconstruction), Dr. 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 Sosa-[facility] TOTAL ABD HYSTERECTOMY+BLAD REPR N/A 2020 left ovary removed; Dr. Sosa-[facility]- total hysterectomy with rectocele and bladder sling Family History FAMILY HISTORY Problem Relation Age of Onset Cancer Mother melanoma Hypertension Mother Lipids Mother Breast Cancer Mother 63 Diabetes Mother Arthritis Father Lipids Father High Triglycerides Heart Father ICD/pacer, CHF/s/p [place] Diabetes Father Colon Cancer Paternal Grandmother Cancer Paternal Grandfather HCC-EtOH abuse Heart Maternal Uncle enlarged heart: cardiomyopathy Hypertension Brother Diabetes Sister Lipids Sister Ischemic Heart Disease Maternal Uncle Breast Cancer Other 49 maternal cousin (mothers-brothers child) Patient Allergies ALLERGIES Allergen Reactions Penicillins Hives Other reaction(s): hives all over body Current Medications Current Outpatient Medications on File Prior to Visit Medication Sig triamcinolone acetonide (NASACORT AQ) 55 mcg nasal inhaler Use 2 Sprays in the nose once daily. romosozumab-aqqg (EVENITY) 105 mg/1.17 mL syrg syringe Inject 210 mg subcutaneously once every month. meloxicam (MOBIC) 15 mg tablet Take 1 tablet by mouth once daily. For 14 days then as needed. Take with a meal GEMTESA 75 mg tablet Take 75 mg by mouth once daily. venlafaxine ER (EFFEXOR XR) 37.5 mg 24 hr capsule TAKE 1 CAPSULE ONCE DAILY COMPRESSION SLEEVE as directed. Breast cancer. 20-30 mmHg omeprazole (PRILOSEC) 20 mg capsule Take 1 capsule by mouth once daily. Lactobacillus acidophilus (PROBIOTIC ORAL) Take by mouth. docusate sodium (COLACE) 100 mg capsule Take by mouth. mecobalamin (B12 ACTIVE ORAL) Take 1 tablet by mouth once daily. CALCIUM CARBONATE/VITAMIN D3 (VITAMIN D-3 ORAL) Take by mouth twice daily. metaxalone (SKELAXIN) 800 mg tablet Take 0.5 tablets by mouth twice daily as needed for pain (or Muscle Spasms). FOR PAIN OR MUSCLE SPASMS. (Patient not taking: Reported on 11/19/2022) Current Facility-Administered Medications on File Prior to Visit Medication romosozumab-aqqg 210 mg injection (EVENITY) Social History Social History Tobacco Use Smoking status: Never Smokeless tobacco: Never Vaping Use Vaping Use: Never used Substance Use Topics Alcohol use: No Drug use: No Review of Symptoms REVIEW OF SYSTEMS See HPI, otherwise negative EXAM: BP 106/78 (BP Site: Left Arm, BP Position: Sitting, BP Cuff Size: Regular Adult) Pulse 95 Temp 37.6 C (99.7 F) Resp 16 Wt 58.9 kg (129 lb 12.8 oz) LMP 06/08/2020 (Approximate) SpO2 96% BMI 22.63 kg/m General Appearance: Well appearing, alert, in no acute distress, well-hydrated, well nourished.. Skin: Skin color, texture, turgor normal, no suspicious rashes or lesions. Head: Normocephalic, no masses, lesions, or abnormalities, positive for facial tenderness to maxillary and frontal sinuses Eyes: Anicteric sclera. Pupils are equally round and reactive to light. Extraocular movements are intact. . Ears: Positive findings: bilateral effusion Nose/Sinuses: septum midline, mucosa normal, yellow drainage noted at nares. Oropharynx: Positive findings: mild oropharyngeal erythema. Neck: Positive findings: anterior cervical lyphadenopathy. Lungs: Cough, persistent,. Bilateral upper lobes, right middle/lower lung villeda have expiratory wheeze/rale Heart: RRR without murmur, gallop, or rubs. No ectopy. Health Maintenance List HEPATITIS B(2 of 3 - 19+ 3-dose series) due on 07/07/2008 DTAP,TDAP,TD(2 - Tdap) due on 05/21/2014 PAP TESTING due on 03/19/2023 HPV TESTING due on 03/19/2023 COVID-19 VACCINE(1) due on 2023 COLORECTAL CANCER SCREENING due on 03/01/2023 INFLUENZA(Season Ended) due on 04/03/2023 DIABETES SCREEN due on 05/30/2025 LIPID SCREEN due on 02/17/2027 HEPATITIS C SCREENING Completed HIV SCREENING Completed SHINGRIX VACCINE Completed MAMMOGRAM Discontinued Data reviewed Previous records, office notes ASSESSMENT/PLAN: 1. Sore throat - ICD9: 462, ICD10: J02.9 (primary diagnosis) - Rapid Strep negative in the office today - Discussed supportive care treatment with fluids, rest and analgesia. - The patient should follow up in one week if symptoms persist or worsen - XR CHEST 2V FRONTAL/LAT - DOXYCYCLINE HYCLATE 100 MG TABLET - RAPID STREP TEST B/O - COVID WITH FLUA+B, ROUTINE - METHYLPREDNISOLONE 4 MG TABLETS IN A DOSE PACK 2. Congestion of upper airway - ICD9: 519.8, ICD10: J98.8 - Rapid Strep negative in the office today - Discussed supportive care treatment with fluids, rest and analgesia. - The patient should follow up in one week if symptoms persist or worsen - XR CHEST 2V FRONTAL/LAT - DOXYCYCLINE HYCLATE 100 MG TABLET - RAPID STREP TEST B/O - COVID WITH FLUA+B, ROUTINE - METHYLPREDNISOLONE 4 MG TABLETS IN A DOSE PACK 3. Wheezing - ICD9: 786.07, ICD10: R06.2 - Rapid Strep negative in the office today - Discussed supportive care treatment with fluids, rest and analgesia. - The patient should follow up in one week if symptoms persist or worsen - XR CHEST 2V FRONTAL/LAT - DOXYCYCLINE HYCLATE 100 MG TABLET - RAPID STREP TEST B/O - COVID WITH FLUA+B, ROUTINE - METHYLPREDNISOLONE 4 MG TABLETS IN A DOSE PACK 4. Acute ear pain, bilateral - ICD9: 388.70, ICD10: H92.03 - Rapid Strep negative in the office today - Discussed supportive care treatment with fluids, rest and analgesia. - The patient should follow up in one week if symptoms persist or worsen - XR CHEST 2V FRONTAL/LAT - DOXYCYCLINE HYCLATE 100 MG TABLET - RAPID STREP TEST B/O - COVID WITH FLUA+B, ROUTINE - METHYLPREDNISOLONE 4 MG TABLETS IN A DOSE PACK 5. Non-recurrent acute serous otitis media of both ears - ICD9: 381.01, ICD10: H65.03 - Rapid Strep negative in the office today - Discussed supportive care treatment with fluids, rest and analgesia. - The patient should follow up in one week if symptoms persist or worsen - XR CHEST 2V FRONTAL/LAT - DOXYCYCLINE HYCLATE 100 MG TABLET - RAPID STREP TEST B/O - COVID WITH FLUA+B, ROUTINE - METHYLPREDNISOLONE 4 MG TABLETS IN A DOSE PACK Rossi Martinez APRN.CUSTOMER SALES SPECIALIST documented in this encounter [facility] 11-17-2022 History of Presen t illness Narrative [facility] Department Date: November 17, 2022 - 8:57 AM Greyson Rojas is seen in consultation requested by Dr. Gallo Sanches for an opinion regarding chronic back pain. My final recommendations will be communicated back to the requesting physician by way of shared medical record or via US mail. Chief Complaint: back pain SUBJECTIVE: Greyson Rojas, is a 52 year old female who presents with thoracic and lower back pain. The pain started years ago, with no known injury but has had increase in pain since hysterectomy surgery in 2020. The pain onset was gradual in nature. The patient states that the current pain is persistent. Her pain is located in the right thoracic and lumbar region and does not radiate.. // The pain is described as tight, achy, and sharp. The pain intensity is rated 7. The pain is exacerbated by exercise and relieved by no known factors. Symptoms interfere with sleeping, exercise, lifting. 100% pain in spine vs 0% (radiating) pain in the extremity. Litigation: No. Worker's Compensation: No. Prior pain treatment has included physical therapy, recently, with no relief. Medications: Meloxicam with no relief and acetomorphine with minimal relief. ALLERGIES Allergen Reactions Penicillins Hives Other reaction(s): hives all over body Current Medications: Pain medications reviewed and reconciled in the medication list: Yes. Current Outpatient Medications Medication Sig metaxalone (SKELAXIN) 800 mg tablet Take 0.5 tablets by mouth twice daily as needed for pain (or Muscle Spasms). FOR PAIN OR MUSCLE SPASMS. triamcinolone acetonide (NASACORT AQ) 55 mcg nasal inhaler Use 2 Sprays in the nose once daily. romosozumab-aqqg (EVENITY) 105 mg/1.17 mL syrg syringe Inject 210 mg subcutaneously once every month. meloxicam (MOBIC) 15 mg tablet Take 1 tablet by mouth once daily. For 14 days then as needed. Take with a meal GEMTESA 75 mg tablet Take 75 mg by mouth once daily. venlafaxine ER (EFFEXOR XR) 37.5 mg 24 hr capsule TAKE 1 CAPSULE ONCE DAILY COMPRESSION SLEEVE as directed. Breast cancer. 20-30 mmHg omeprazole (PRILOSEC) 20 mg capsule Take 1 capsule by mouth once daily. Lactobacillus acidophilus (PROBIOTIC ORAL) Take by mouth. docusate sodium (COLACE) 100 mg capsule Take by mouth. mecobalamin (B12 ACTIVE ORAL) Take 1 tablet by mouth once daily. CALCIUM CARBONATE/VITAMIN D3 (VITAMIN D-3 ORAL) Take by mouth twice daily. Current Facility-Administered Medications Medication Dose Route Frequency romosozumab-aqqg 210 mg injection (EVENITY) 210 mg SUBCUTANEOUS q 1 MONTH PAST MEDICAL HISTORY Diagnosis Date Anemia, unspecified iron deficiency Breast cancer (HCC) 08/2017 Breast mass 06/2017 right breast Diffuse cystic mastopathy Helicobacter pylori infection Hiatal hernia Major depressive disorder, single episode, unspecified 1999 depressed year after 3rd child: treated for 1 year with Zoloft Meniere disease Dr. Marie ENT Panic disorder without agoraphobia periodic symptoms PAST SURGICAL HISTORY Procedure Laterality Date BREAST RECONSTRUCTION implants removed and replaced BX BREAST W/DEVICE 1ST LESION ULTRASOUND GUID Right 06/12/2017 3 nodules; 5cm, 3cm, 3cm COLONOSCOPY FLX DX W/COLLJ SPEC WHEN PFRMD 03/01/2018 Colonoscopy EGD N/A 11/05/2021 FOOT SURGERY HX Left 1982 Arch reshaping HIP SURGERY HX 01/08/2022 torn labrum, reshaped femoral head LAPAROSCOPIC SALPING/OOPHORECTOMY Right 02/24/2019 Dr. Jasmin Sosa MASTECTOMY, SIMPLE, COMPLETE Bilateral 08/18/2017 Dr. Johnson (reconstruction), Dr. 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 S[facility] TOTAL ABD HYSTERECTOMY+BLAD REPR N/A 2020 left ovary removed; Dr. Sosa-[facility]- total hysterectomy with rectocele and bladder sling FAMILY HISTORY Problem Relation Age of Onset Cancer Mother melanoma Hypertension Mother Lipids Mother Breast Cancer Mother 63 Diabetes Mother Arthritis Father Lipids Father High Triglycerides Heart Father ICD/pacer, CHF/s/p [place] Diabetes Father Colon Cancer Paternal Grandmother Cancer Paternal Grandfather HCC-EtOH abuse Heart Maternal Uncle enlarged heart: cardiomyopathy Hypertension Brother Diabetes Sister Lipids Sister Ischemic Heart Disease Maternal Uncle Breast Cancer Other 49 maternal cousin (mothers-brothers child) Social History: Alcohol Use: No Tobacco Use: Never Drug Use: No Employer And Job Title: None on file Years Of Education Completed: Not specified Marital Status: with 3 children REVIEW OF SYSTEMS: Constitutional: (-) Fever (-) Night Sweats (-) Weight Gain (-) Weight Loss (-) Fatigue Cardiovascular: (-) Chest Pain (-) Palpitations (-) Lightheadedness (-) Swelling of Ankles (-) Hx Heart Surgery Respiratory: (-) Shortness of Breath (-) Cough (-) Wheezing (-) Snoring Gastrointestinal: (-) Incontinence (+) Abdominal Pain (+) Diarrhea (+) Constipation (-) Nausea/Vomiting (+) Heart Burn Endocrine: (-) Thyroid Disorder (-) Diabetes Hematologic: (+) Prolonged Bleeding (+) Easy Bruising Genitourinary: (-) Incontinence (-) Frequency (-) Urinary Urgency Skin: (-) Rashes (-) Itching (-) Other Lesions Neurologic: (-) Headache (-) Double Vision (-) Confusion (-) Paralysis (-) Vertigo (-) Syncope Psychiatric: (-) Depression (-) Anxiety (-) Delusions (-) Hallucinations (-) Suicidal Thoughts OARRS Report reviewed: Yes Narcotic Agreement reviewed and signed?: N/A Baseline Urine Toxicology obtained: N/A Urine Panel: No results found for: UQCANN, UQBNZL, FZJ0WDK, UQAMPH, UQMAMP, UQBUPRE, UQNORBUP, UQMTHD, UQEDDP, UQTRAM, UQDTRM, UQFNTL, UQNFTL, UQCODE, UQMORP, UQDCDN, UQHCOD, UQOXYC, UQHMOR, UQOXYM, UQCREA, UQPH, UQSPGR, UQOXID, UQSPQ The pain panel was N/A OBJECTIVE: Performed in conjunction with observation. The patient was alert and oriented x3. The patient was in no acute distress. Lungs: Clear, negative for dyspnea or distress. CVR: Negative for SOB or peripheral edema. Neck: Supple. The range of motion was intact. Bilateral paracervical tenderness. Cervical facet loading: Negative Spurling's: Negative Thoracic: Right parathoracic tenderness in the lower thoracic region. Negative for soft tissue mass or abnormality. For facet loading. Back: Range of motion of the trunk was generally intact. Right paravertebral tenderness in the lumbar region throughout. SLR: Equivocal Facet Loading: Positive with axial loading and extension. SI joint: Negative PSIS tenderness. Extremities: no reported edema or erythema. Motor: Negative focal deficits Sensory: Intact to light touch and sharp throughout the lower extremities Gait: Within normal limits Medical record and diagnostic tests reviewed for today's visit: The [facility] EMR was reviewed during the visit IMAGING STUDIES: No new imaging studies were reviewed during this office visit. ASSESSMENT: (M48.061) Spinal stenosis of lumbar region, unspecified whether neurogenic claudication present (primary encounter diagnosis) (M54.6, G89.29) Chronic right-sided thoracic back pain (M62.830) Spasm of thoracic back muscle (M54.2, G89.29) Neck pain, chronic (M47.22) Osteoarthritis of spine with radiculopathy, cervical region (R20.0, R20.2) Numbness and tingling in right hand (M51.36) Lumbar degenerative disc disease Discussion: A discussion was entertained regarding multicomponent back pain source. Discussed conservative options and focus on improvement of function and the concerns of ongoing chronic pain. Discussed the rationale behind interventional approach and how it can facilitate improvement of pain but also diagnostic information that procedures provide. longterm use of any opioid pain medication is discouraged in chronic benign pain. PLAN: 1. Imaging studies of the thoracic and lumbar spine reviewed with the patient. Negative acute findings. She does have degenerative disc changes at L4-5 level. Persistent back pain associated with prior surgery and onset of her surgically induced menopause, recommend MRI evaluation of lumbar spine. 2. No interventional procedures indicated 3. A trial of Skelaxin 400 mg 1 p.o. twice daily as needed. 4. Counseled patient regarding the importance of activity modification and exercise. 5. Follow up: We will contact with results of the imaging studies and we will provide further recommendation at that time. The above plan and management options were discussed with patient. The patient is in agreement with the above and verbalized understanding. I have discussed and confirmed the above treatment plan with the patient and I have reviewed the nurses notes and I am aware of the family/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. I have confirmed ROS findings. Bhavik Ugarte MD 1. This document has been created with the use of voice recognition technology. It may contain inaccuracies: (e.g. misspellings, inaccurate syntax or word sense) that have escaped review. 2. The nurse practitioner, nursing staff and medical assistants are a major part of YOUR TREATMENT TEAM and will be handling your phone calls and inquiries, if any. Unless explicitly told otherwise at the time of your office visit, your study results and ensuing treatment plans will be discussed during your follow-up appointment. If you do not have a follow-up appointment and wish to discuss any issues, please set up an appointment. 3. It is my practice to not fill disability or any other insurance-related forms/documentation. All of the office notes, study results, and other pertinent documentation generated as part of your evaluation will be available to you and to your Primary Care Physician (PCP). Use of this material to complete such forms will be at the discretion of your PCP/referring physician. November 17, 2022 cc: Gallo Sanches [id number] [place] [address] Results of consultation to be transmitted via electronic medical record for those providers who practice within [facility] or with access to [employer] via MD Connect, or via letter. documented in this encounter [facility] 11-14-2022 History of Presen t illness Narrative Episode Visit Count: 11 Therapist That Will Accept/Oversee The Plan Of Care: Salas Sherman Start of Care Date: 09/11/22 Onset Date: 07/11/22 REHABILITATION AND SPORTS THERAPY PHYSICAL THERAPY TREATMENT NOTE ASSESSMENT: Greyson Rojas tolerated the session with temporarily decreased symptoms. She demonstrated difficulty with light recreational and physical activities. The patient will continue to benefit from ongoing skilled physical therapy to progress toward set goals. PLAN FOR NEXT VISIT: Continue knee strengthening SUBJECTIVE: Patient Reason for Visit: Pt continues to have issues with even light physical activity flaring her symptoms up. Pain: Pain Pain Level: 6 Pain Location: Low Back/Lumbar Spine - Right, Hip - Right Description: Aching, Sore, Tightness Frequency: Continuous OBJECTIVE MEASURES WITH LEVEL OF FUNCTION: SKC does relieve some symptoms in lumbar spine today TREATMENT: Therapeutic Exercise: 2: *SKC 3x30 sec 3: Quad sets 2x20 4: SLR 3x10 5: SL hip abduction x10 6: Glute bridging 3x10 Skilled Intervention: Patient was educated in proper exercise technique and purpose for exercises. Skilled judgment was provided in selection of appropriate interventions. Provided written instruction for home exercise program to facilitate proper performance and compliance. Correct performance of therapeutic exercises was facilitated with verbal and visual cuing. Manual Therapy: 1: Manual lumbar traction x10 min with feet elevated on stool 2: Manual cervical traction x5 min with pull to tolerance Skilled Intervention: Manual skills to improve joint mobility, ROM, and decrease pain. Utilized anatomy knowledge of the therapist, and assessment of patient's response to intervention. Billing Therapeutic Exercise Treatment Minutes: 23 Manual TherapyTreatment Minutes: 15 Total Treatment Time Minutes (timed/untimed): 38 Salas Sherman PT documented in this encounter [facility] 11-13-2022 Miscellaneous Notes Pt notified of response via [employer]. July Rubio LPN Consult placed. Please assist in scheduling this. Thank you, Izabella Holland APRN.FAHEEM Please see pt message .me documented in this encounter [facility] 11-13-2022 Miscellaneous Notes The following approved medication requests have been transmitted electronically. Requested Prescriptions Signed Prescriptions Disp Refills triamcinolone acetonide (NASACORT AQ) 55 mcg nasal inhaler 16.9 mL 5 Sig: Use 2 Sprays in the nose once daily. Izabella Holland APRN.FAHEEM documented in this encounter [facility] 11-11-2022 History of Presen t illness Narrative Episode Visit Count: 10 Therapist That Will Accept/Oversee The Plan Of Care: Salas Sherman Start of Care Date: 09/11/22 Onset Date: 07/11/22 REHABILITATION AND SPORTS THERAPY PHYSICAL THERAPY PROGRESS REPORT PLAN OF CARE UPDATE: Assessment: Greyson Rojas demonstrates difficulty with standing, walking, heavy exertion, and physical activities. She has new goals added to address for L knee . Patient continues to present with impairments in ADL's, independence in exercise, range of motion, strength, and symptom management that interfere with standing, walking, heavy exertion, lifting, physical activities, recreational activities . Current prognosis is Good due to: current objective clinical presentation, good overall health status, acuteness of condition, positive past response to therapy, good support system/ coping skills . She will benefit from continued skilled therapy services to meet the updated goals for this plan of care as noted below. Goals updated on 11/06/2022. Goals for Episode of Care: created on 09/11/22 through 11/09/22 [place] in home exercise program. Met, on-going Patient will decrease pain rating by 2 points to meet minimal clinical important difference for numeric pain rating scale. Not met Patient will increase active ROM of R hip to WNL pain free to allow pt to to improve performance of ADLs. Not met Patient will demonstrate increase in R hip strength to 5/5 during manual muscle testing in order to improve function for leisure / recreation skills, moderate to heavy functional tasks, prior functional tasks, and work tasks. Not met Perform Recreational tasks and work tasks with decreased report of symptoms/pain in 8-12 weeks. Not met Perform self care, ADLs without pain. Partially met Added 11/06/2022: Patient will improve active knee range of motion to WNL for improved pain and tolerance for ADLs. Planned Interventions, Frequency, and Duration: 1x/week, 4 weeks Total Number of Visits Planned: 4 Patient to be seen for Therapeutic exercise (02856), Neuromuscular re-education (98724), Self-group home management (40672), Manual therapy (98236), Therapeutic activities (71983), Patient/Family/Caregiver Education, Body Mechanics Training PLAN FOR NEXT VISIT: Continue working on knee, hip and back based on pt's symptoms for that day SUBJECTIVE: Patient Reason for Visit: Pt continues to struggle with even light to moderate exercise increasing her back and hip symptoms. Functional Limitations: standing, walking, heavy exertion, lifting, physical activities, recreational activities Pain: Pain Pain Level: 6 Pain Location: Low Back/Lumbar Spine - Right, Hip - Right Description: Aching, Sore, Tightness Frequency: Continuous PROMIS Scales Higher is Better 09/29/2022 01/08/2022 11/17/2021 Phys Func - Score 44 (mild dysfunction) 29 (severe dysfunction) 47 (within normal limits) Phys Func - Percentile 27 % 2 % 38 % Self-Eff Symptom - Score 49 (Average) 50 (Average) 48 (Average) Self-Eff Symptom - Percentile 46 % 50 % 42 % T-scores: mean of general population = 50. 5 points is clinically meaningfully difference Percentiles provide an indication of how the patient's score ranks in relation to the general population. Higher percentile rankings indicate better function/quality of life. 50th percentile is the average of the general population and indicates half of respondents had a worse score. OBJECTIVE MEASURES WITH LEVEL OF FUNCTION: LE Strength Trunk Strength: 4+/5 R LE Strength: 4+/5 L LE Strength: 5/5 TREATMENT: Therapeutic Exercise: 1: Reviewed HEP for knee/hip 2: Patellar mobs x10 each way (verbal and tactile cuing for correct performance) 3: Quad sets x10 4: SLR x10 5: SL hip abduction x10 Skilled Intervention: Patient was educated in proper exercise technique and purpose for exercises. Skilled judgment was provided in selection of appropriate interventions. Correct performance of therapeutic exercises was facilitated with verbal, visual, and tactile cuing. Manual Therapy: 1: Manual lumbar traction x10 min with feet elevated on stool 2: Manual cervical traction x5 min with pull to tolerance Skilled Intervention: Manual skills to improve joint mobility, ROM, and decrease pain. Utilized anatomy knowledge of the therapist, and assessment of patient's response to intervention. Billing Therapeutic Exercise Treatment Minutes: 25 Manual TherapyTreatment Minutes: 15 Total Treatment Time Minutes (timed/untimed): 40 Salas Sherman PT documented in this encounter [facility] 11-07-2022 History of Presen t illness Narrative Images from the original note were not included. DEPARTMENT OF ORTHOPAEDICS November 07, 2022 CC: right hip pain HPI: Patient is reevaluation of her right hip. She has persistent lateral and posterior lateral pain. Initially did well after the sacroiliac joint injection. Denies any interim trauma. Unable to participate in progress with exercises of any fashion due to the lateral pain. It is worse on the right than the left. PAIN EVALUATION 11/06/2022 1524 Pain Level: 6 Pain Location: Hip-Right Description: Aching;Sore;Tightness Duration Amount of Time: 24 Duration Units: Hours Frequency: Continuous Intervention/Comfort measure: Medication;Reposition;Exercise Comments: Exercise makes it worse. Past Medical History: PAST MEDICAL HISTORY Diagnosis Date Anemia, unspecified iron deficiency Breast cancer (HCC) 08/2017 Breast mass 06/2017 right breast Diffuse cystic mastopathy Helicobacter pylori infection Hiatal hernia Major depressive disorder, single episode, unspecified 1999 depressed year after 3rd child: treated for 1 year with Zoloft Meniere disease Dr. Marie ENT Panic disorder without agoraphobia periodic symptoms Family History: FAMILY HISTORY Problem Relation Age of Onset Cancer Mother melanoma Hypertension Mother Lipids Mother Breast Cancer Mother 63 Diabetes Mother Arthritis Father Lipids Father High Triglycerides Heart Father ICD/pacer, CHF/s/p [place] Diabetes Father Colon Cancer Paternal Grandmother Cancer Paternal Grandfather HCC-EtOH abuse Heart Maternal Uncle enlarged heart: cardiomyopathy Hypertension Brother Diabetes Sister Lipids Sister Ischemic Heart Disease Maternal Uncle Breast Cancer Other 49 maternal cousin (mothers-brothers child) Social History: Medications: romosozumab-aqqg (EVENITY) 105 mg/1.17 mL syrg syringe^Inject 210 mg subcutaneously once every month.^Disp: ^Rfl: meloxicam (MOBIC) 15 mg tablet^Take 1 tablet by mouth once daily. For 14 days then as needed. Take with a meal^Disp: 30 tablet^Rfl: 1 GEMTESA 75 mg tablet^Take 75 mg by mouth once daily.^Disp: ^Rfl: venlafaxine ER (EFFEXOR XR) 37.5 mg 24 hr capsule^TAKE 1 CAPSULE ONCE DAILY^Disp: 90 capsule^Rfl: 3 COMPRESSION SLEEVE^as directed. Breast cancer. 20-30 mmHg^Disp: 2 Each^Rfl: 0 omeprazole (PRILOSEC) 20 mg capsule^Take 1 capsule by mouth once daily.^Disp: 90 capsule^Rfl: 3 Lactobacillus acidophilus (PROBIOTIC ORAL)^Take by mouth.^Disp: ^Rfl: docusate sodium (COLACE) 100 mg capsule^Take by mouth.^Disp: ^Rfl: mecobalamin (B12 ACTIVE ORAL)^Take 1 tablet by mouth once daily.^Disp: ^Rfl: CALCIUM CARBONATE/VITAMIN D3 (VITAMIN D-3 ORAL)^Take by mouth twice daily. ^Disp: ^Rfl: Allergies: ALLERGIES Allergen Reactions Penicillins Hives Other reaction(s): hives all over body Physical Exam: Musculoskeletal Exam: Gait normal, Posture: erect and normal. Exam: Right Left Single Leg Trendelenburg Negative Negative Hip flexion 110 110 IR 30 10 ER 60 60 Anterior impingement negative negative Dynamic labral stress negative negative RUMA Positive-pain lateral and slight loss of motion negative Posterior Impingement negative negative TERRIE negative negative Strength Right Left Supine HF 5/5 5/5 Upright HF 5/5 5/5 Adduction 5/5 5/5 Abduction 5/5 5/5 Tenderness with Palpation: Right Left Greater Troch Positive Positive Gluteus Medius Positive Positive Piriformis Positive Positive She has reproducible pain with lumbar hyperextension with minimal pain with lumbar flexion Review of Systems: GENERAL: No weight loss, malaise or fevers MUSCULOSKELETAL: See HPI Imaging: Assessment/Plan: Persistent right worse than left greater trochanteric pain syndrome Plan for the patient reviewed. Of obtain an ultrasound of the right hip to evaluate the gluteus medius minimus and piriformis area. Follow-up after the imaging. She also has significant mount of lumbar back pain and pain with lumbar motion thus we will place a spine referral as well. Follow-up after ultrasound. All questions answered. Renan Paige MD This note was partially generated using [employer] voice recognition system, and there may be some incorrect words, spellings, and punctuation that were not noted in checking the note before saving. Medical Decision Making: Medical Decision Making Level: 1 - N/A documented in this encounter [facility] 11-04-2022 History of Presen t illness Narrative Episode Visit Count: 9 Therapist That Will Accept/Oversee The Plan Of Care: Salas Sherman Start of Care Date: 09/11/22 Onset Date: 07/11/22 REHABILITATION AND SPORTS THERAPY PHYSICAL THERAPY TREATMENT NOTE ASSESSMENT: Greyson Rojas tolerated the session with no issues. She demonstrated difficulty with L hip and knee strength, as well as end range flexion range of motion . The patient will continue to benefit from ongoing skilled physical therapy to progress toward set goals and for reassessment by supervising therapist. PLAN FOR NEXT VISIT: [place] SUBJECTIVE: Patient Reason for Visit: Hip continues to do better, back is hit n miss. Pt has new, updated order for L knee pain and neck pain. Notes knee feels like it it weak and issues with end range flexion, stairs/squatting. Neck is stiff, but noting some issues with movement and some tingling radicular symptoms have started Pain: Pain Pain Level: 5 Pain Location: Low Back/Lumbar Spine - Right, Knee - Left Description: Aching, Sore, Tightness Frequency: Continuous OBJECTIVE MEASURES WITH LEVEL OF FUNCTION: L knee range of motion: WNL but end range flexion pain Negative thessaley's at 5 and 20 degrees flexion TREATMENT: Therapeutic Exercise: 1: *Patellar mobs 3x[address] way 2: *Prone quad stretch 3x30 sec 3: *Quad sets 3x10 4: *SLR 3x10 5: *SL hip abduction 3x10 6: *Bridging 3x10 Skilled Intervention: Patient was educated in proper exercise technique and purpose for exercises. Skilled judgment was provided in selection of appropriate interventions. Provided written instruction for home exercise program to facilitate proper performance and compliance. Correct performance of therapeutic exercises was facilitated with verbal, visual, and tactile cuing. Billing Therapeutic Exercise Treatment Minutes: 40 Total Treatment Time Minutes (timed/untimed): 40 Salas Sherman PT documented in this encounter [facility] 11-04-2022 Nurse Note The patient is here for an injection of Evenity 210 mg (105 mg/1.17 mL X2) INJECTION # 2 OF 12 Dose: 210 mg Route: Subcutaneous Lot# [id number] Expiration date 01/2025 [facility]: 66168-969-72 Given without incident. Site: left arm Dr. Wisdmo present in clinic at time of injection. The date due for the next injection is in 30 days, on or after 12/04/2022. ZBIGNIEW: 07/14/2022 NOV: Will need 03/2023 Insurance: Jose ([employer]) [place] 10/01/2022---09/30/2023 Labs: 05/30/22 Calcium 9.1, Vitamin D 68.4 DX: M81.8 CPT: J0897 DXA: 04/2022 (T-Score -3.2 Spine) Patient education was given by nurse. Patient tolerated Injection well, in NAD and no reactions noted. Medication supplied by [facility]. Gisselle Cai RN documented in this encounter [facility] 10-31-2022 History of Presen t illness Narrative Episode Visit Count: 8 Therapist That Will Accept/Oversee The Plan Of Care: Salas Sherman Start of Care Date: 09/11/22 Onset Date: 07/11/22 REHABILITATION AND SPORTS THERAPY PHYSICAL THERAPY TREATMENT NOTE ASSESSMENT: Greyson Rojas tolerated the session with decreased symptoms. She demonstrated improvements in back and hip pain with manual techniques. The patient will continue to benefit from ongoing skilled physical therapy to progress toward set goals. PLAN FOR NEXT VISIT: Continue manual as needed. Progress exercises if symptoms permit SUBJECTIVE: Patient Reason for Visit: Hip is doing great today, but the back is really tight Pain: Pain Pain Level: 5 Pain Location: Low Back/Lumbar Spine - Right Description: Aching, Sore, Tightness Frequency: Continuous OBJECTIVE MEASURES WITH LEVEL OF FUNCTION: Tenderness to thoracic and lumbar paraspinals TREATMENT: Manual Therapy: 1: STM to R thoracic and lumbar paraspinals with push to tolerance Dry Needling: (1) 40 and 50 mm needles to R T8 and L4 paraspinals plus TENS. Leads 1 and 2 3.5 V x10 min Skilled Intervention: Manual skills to improve joint mobility, ROM, and decrease pain. Utilized anatomy knowledge of the therapist, and assessment of patient's response to intervention. Billing Manual TherapyTreatment Minutes: 39 Total Treatment Time Minutes (timed/untimed): 39 Salas Sherman PT documented in this encounter [facility] 10-31-2022 Miscellaneous Notes The following approved medication requests have been transmitted electronically. Requested Prescriptions Signed Prescriptions Disp Refills meloxicam (MOBIC) 15 mg tablet 30 tablet 1 Sig: Take 1 tablet by mouth once daily. For 14 days then as needed. Take with a meal Izabella Holland APRN.CNP documented in this encounter [facility] 10-31-2022 Miscellaneous Notes Patient calls and notified of results and providers instructions. Patient verbalizes understanding. Physical therapy and pain management appointments are already scheduled. Leeanna Lockhart RN Left message to return call. Please inform patient that her cervical spine xray shows Multilevel mild to moderate foraminal encroachment at C4-5, C5-6 and C6-7. Normal alignment. DEGENERATIVE CHANGES DESCRIBED. STRAIGHTENING OF THE NORMAL LORDOSIS Would recommend further assessment with pain mgmt and PHYSICAL THERAPY which were already ordered Gallo Sanches DO documented in this encounter [facility] 10-31-2022 History of Presen t illness Narrative Radiology Service Progress Note PATIENT NAME: Greyson Rojas DATE OF SERVICE: October 31, 2022 TIME: 10:29 AM PATIENT IDENTITY VERIFICATION COMPLETED USING TWO (2) IDENTIFIERS: Name and Date of confirmed by patient verbally. FALL SCREENING: Has the patient had 2 falls in the last year or 1 fall with injury or currently using an Ambulatory Assistive Device (Walker, Cane, Wheelchair, Crutches, etc.)? No PATIENT GENDER DATA: Female. status: : No status: NO. PATIENT RELEVANT IMPLANT DATA REVIEWED: Not Applicable RADIOLOGY DEPARTMENT: General X-ray: Exam(s) Completed: Spine X-Ray(s): Cervical AP / LAT / OBL Lower Extremity X-Ray(s): Knee, AP / Lat / Tunne / Merchant Left and Wt. Bearing PERIPHERAL IV DATA: Not applicable SIGNED BY: RT Felipa(R) October 31, 2022 10:29 AM documented in this encounter [facility] 10-31-2022 History of Presen t illness Narrative CC: Greyson Rojas is a 52 year old female who presents to the office for multiple concerns HPI: Left knee discomfort, feels tight and swollen, especially on left side and anterior, was seen by PHYSICAL THERAPY in the past years ago, hasn't had an xray or MRI or seen Orthopedics. Previously she says that she thought it was related to the Tamoxifen SE but is now off this medication x months and still having symptoms. Feels like the knee gives out especially when going down the steps or when trying to full flexion stretch with Yoga, sometimes better with a slow warm up. Has tried ice and heat and rest without relief of symptoms. Right index finger tingling like there is a hair on my skin that I can't wipe off so I try to rub it but it won't go away and facial tingling and lip curling, comes and goes, no known injuries or swelling. 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 Wasn't bothering her this much until recently Mid back pain, thoracic spine area, right >left, has been found to have osteoporosis and is on treatment IV medication by [employer]. Also has been found to have DJD and DDD thoracic spine. Has been going to PHYSICAL THERAPY and having traditional PHYSICAL THERAPY and dry needling and massage therapy without relief of symptoms. Hasn't had additional testing. Waking her up at night and very bothersome Recent history of breast cancer PAST MEDICAL HISTORY Diagnosis Date Anemia, unspecified iron deficiency Breast cancer (HCC) 08/2017 Breast mass 06/2017 right breast Diffuse cystic mastopathy Helicobacter pylori infection Hiatal hernia Major depressive disorder, single episode, unspecified 1999 depressed year after 3rd child: treated for 1 year with Zoloft Meniere disease Dr. Marie ENT Panic disorder without agoraphobia periodic symptoms PAST SURGICAL HISTORY Procedure Laterality Date BREAST RECONSTRUCTION implants removed and replaced BX BREAST W/DEVICE 1ST LESION ULTRASOUND GUID Right 06/12/2017 3 nodules; 5cm, 3cm, 3cm COLONOSCOPY FLX DX W/COLLJ SPEC WHEN PFRMD 03/01/2018 Colonoscopy EGD N/A 11/05/2021 FOOT SURGERY HX Left 1982 Arch reshaping HIP SURGERY HX 01/08/2022 torn labrum, reshaped femoral head LAPAROSCOPIC SALPING/OOPHORECTOMY Right 02/24/2019 Dr. Jasmin Sosa MASTECTOMY, SIMPLE, COMPLETE Bilateral 08/18/2017 Dr. Johnson (reconstruction), Dr. 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 Sosa-[facility] TOTAL ABD HYSTERECTOMY+BLAD REPR N/A 2020 left ovary removed; Dr. Sosa-[facility]- total hysterectomy with rectocele and bladder sling Social History: Social History Tobacco Use Smoking status: Never Smokeless tobacco: Never Vaping Use Vaping Use: Never used Substance Use Topics Alcohol use: No Drug use: No FAMILY HISTORY Problem Relation Age of Onset Cancer Mother melanoma Hypertension Mother Lipids Mother Breast Cancer Mother 63 Diabetes Mother Arthritis Father Lipids Father High Triglycerides Heart Father ICD/pacer, CHF/s/p [place] Diabetes Father Colon Cancer Paternal Grandmother Cancer Paternal Grandfather HCC-EtOH abuse Heart Maternal Uncle enlarged heart: cardiomyopathy Hypertension Brother Diabetes Sister Lipids Sister Ischemic Heart Disease Maternal Uncle Breast Cancer Other 49 maternal cousin (mothers-brothers child) Current Outpatient prescriptions: GEMTESA 75 mg tablet^Take 75 mg by mouth once daily.^Disp: ^Rfl: venlafaxine ER (EFFEXOR XR) 37.5 mg 24 hr capsule^TAKE 1 CAPSULE ONCE DAILY^Disp: 90 capsule^Rfl: 3 COMPRESSION SLEEVE^as directed. Breast cancer. 20-30 mmHg^Disp: 2 Each^Rfl: 0 omeprazole (PRILOSEC) 20 mg capsule^Take 1 capsule by mouth once daily.^Disp: 90 capsule^Rfl: 3 Lactobacillus acidophilus (PROBIOTIC ORAL)^Take by mouth.^Disp: ^Rfl: docusate sodium (COLACE) 100 mg capsule^Take by mouth.^Disp: ^Rfl: mecobalamin (B12 ACTIVE ORAL)^Take 1 tablet by mouth once daily.^Disp: ^Rfl: romosozumab-aqqg (EVENITY) 105 mg/1.17 mL syrg syringe^Inject 210 mg subcutaneously once every month.^Disp: ^Rfl: CALCIUM CARBONATE/VITAMIN D3 (VITAMIN D-3 ORAL)^Take by mouth twice daily. ^Disp: ^Rfl: Allergies: ALLERGIES Allergen Reactions Penicillins Hives Other reaction(s): hives all over body ROS: See HPI PE: 10/31/22 0920 BP: 120/80 Pulse: 72 Resp: 16 Temp: 36.2 C (97.1 F) TempSrc: Left Tympanic Weight: 59 kg (130 lb) Gen: A&O, NAD, non-toxic appearing, Pleasant, cooperative HEENT: NT/AC, PERRLA, EOMs intact b/l, nares clear and patent b/l, pharynx without erythema, exudate or lesions. Uvula midline. Neck: supple, No cervical LAD, no thyromegaly, no carotid bruits, reduced ROM cervical spine. CV: RRR, normal S1 and S2, no murmurs, no gallops, no rubs, Pulses 2+ and symmetric in UE and LE b/l Lungs: normal respiratory effort, CTA b/l, no wheezing or rhonchi or rales MS: thoracic spine TTP area of T5-10 on midline bony areas as well as paraspinal pain right >left with light and moderate pressure, sensory diminshed right >left thoracic area of spine, reduced ROM due to pain Left knee with TTP left lateral joint and inferior to left knee with instability of LCL as well as + pivot testing for lateral meniscus area pain, negative anterior and posterior drawer testing. + mild effusion present, no skin color changes. Neuro: CN II-XII intact b/l, strength 5/5 b/l UE and LE, DTRs 2/4 UE and LE, sensation intact. Skin: warm, dry, intact, No rashes or lesions on exposed skin. ASSESSMENT/PLAN: 1. Chronic pain of left knee - ICD9: 719.46, 338.29, ICD10: M25.562, G89.29 (primary diagnosis) - need for xray as ordered and PHYSICAL THERAPY, suspicious of LCL and lateral meniscus tear vs. Significant strain, effusion is present, knee instability. Likely will need MRI knee - XR KNEE GENERAL 4V AP BOTH/PA BOTH/LAT/MERC LEFT - CONSULT TO PHYSICAL THERAPY 2. Recurrent left knee instability - ICD9: 718.86, ICD10: M23.52 - need for xray as ordered and PHYSICAL THERAPY, suspicious of LCL and lateral meniscus tear vs. Significant strain, effusion is present, knee instability. Likely will need MRI knee - XR KNEE GENERAL 4V AP BOTH/PA BOTH/LAT/MERC LEFT - CONSULT TO PHYSICAL THERAPY 3. Lateral meniscus derangement, left - ICD9: 717.40, ICD10: M23.301 - need for xray as ordered and PHYSICAL THERAPY, suspicious of LCL and lateral meniscus tear vs. Significant strain, effusion is present, knee instability. Likely will need MRI knee - XR KNEE GENERAL 4V AP BOTH/PA BOTH/LAT/MERC LEFT - CONSULT TO PHYSICAL THERAPY 4. Chronic right-sided thoracic back pain - ICD9: 724.1, 338.29, ICD10: M54.6, G89.29 Concerns due to bony pain and symptoms are significant, also with hx of breast CA, need for MRI thoracic spine and referral to pain mgmt for opinion - CONSULT TO PAIN MGT - MRI THORACIC SPINE WO IVCON 5. Spasm of thoracic back muscle - ICD9: 724.8, ICD10: M62.830 Concerns due to bony pain and symptoms are significant, also with hx of breast CA, need for MRI thoracic spine and referral to pain mgmt for opinion - CONSULT TO PAIN MGT - MRI THORACIC SPINE WO IVCON 6. Neck pain, chronic - ICD9: 723.1, 338.29, ICD10: M54.2, G89.29 Hx of cervical DJD and DDD, concerns for need for repeat xray cervical and pain mgmt opinion, hx of spinal stenosis, no surgical history - CONSULT TO PAIN MGT - XR CERV OTHER 4V AP/LAT/OBL 7. Osteoarthritis of spine with radiculopathy, cervical region - ICD9: 721.0, ICD10: M47.22 Hx of cervical DJD and DDD, concerns for need for repeat xray cervical and pain mgmt opinion, hx of spinal stenosis, no surgical history - CONSULT TO PAIN MGT - XR CERV OTHER 4V AP/LAT/OBL 8. Numbness and tingling in right hand - ICD9: 782.0, ICD10: R20.0, R20.2 Hx of cervical DJD and DDD, concerns for need for repeat xray cervical and pain mgmt opinion, hx of spinal stenosis, no surgical history - CONSULT TO PAIN MGT - XR CERV OTHER 4V AP/LAT/OBL 9. Osteoarthritis of spine with radiculopathy, thoracic region - ICD9: 721.2, ICD10: M47.24 Concerns due to bony pain and symptoms are significant, also with hx of breast CA, need for MRI thoracic spine and referral to pain mgmt for opinion - MRI THORACIC SPINE WO IVCON 10. DDD (degenerative disc disease), thoracic - ICD9: 722.51, ICD10: M51.34 Concerns due to bony pain and symptoms are significant, also with hx of breast CA, need for MRI thoracic spine and referral to pain mgmt for opinion - MRI THORACIC SPINE WO IVCON 11. Paresthesia of skin - ICD9: 782.0, ICD10: R20.2 Concerns due to bony pain and symptoms are significant, also with hx of breast CA, need for MRI thoracic spine and referral to pain mgmt for opinion - MRI THORACIC SPINE WO IVCON Gallo aSnches DO To ER if develops chest pain, shortness of breath, or severe worsening of symptoms. Discussed risks, benefits, alternatives, and potential side effects of medications. Patient expressed understanding and agreed with the plan. Gallo Sanches DO [address] [place] [address] documented in this encounter [facility] 10-29-2022 Instructions Ceci Nava PA-C - 10/29/2022 8:55 AM EDT -- Stop Omeprazole for at least 7-10 days prior to stool testing. Okay to take Famotidine. documented in this encounter [facility] 10-29-2022 History of Presen t illness Narrative CHIEF COMPLAINT: Patient presents with: Recheck: Abdominal pain, hoarseness, heartburn, constipation. Pt was trying to wean off of Famotidine due to her lowered bone density. HPI Greyson Rojas is a 52 year old female here today for Recheck (Abdominal pain, hoarseness, heartburn, constipation. Pt was trying to wean off of Famotidine due to her lowered bone density. ) Patient tells me that she is doing okay. Still dealing with some indigestion issues. Trying to wean off her antacids due to her low bone density. States that she cannot take NSAIDs due to increased indigestion. Getting bloating and LUQ discomfort when she eats. Unsure of food triggers to her discomfort. Notes some early satiety. Weight is stable. Bowel movements are mostly okay. Some days she will have constipation issues. Taking probiotics and benefiber. She is eating prunes and a stool softener on a regular basis. Doesn't always feel like she is fully emptying. Last OV with Paige Sylvesterellis MAYEN 05/16/2022: 1. Chronic cough She reports she recently diagnosed with osteoporosis in the lumbar spine and osteopenia in the left hip femoral neck - discussed with patient since omeprazole 20 mg with pepcid at bedtime is managing her symptoms well will continue therapy - I do not want to increase PPI at this time due to the osteoporosis Follow up in office 3 months/PRN. Current Outpatient Medications Medication Sig GEMTESA 75 mg tablet Take 75 mg by mouth once daily. venlafaxine ER (EFFEXOR XR) 37.5 mg 24 hr capsule TAKE 1 CAPSULE ONCE DAILY COMPRESSION SLEEVE as directed. Breast cancer. 20-30 mmHg omeprazole (PRILOSEC) 20 mg capsule Take 1 capsule by mouth once daily. Lactobacillus acidophilus (PROBIOTIC ORAL) Take by mouth. docusate sodium (COLACE) 100 mg capsule Take by mouth. mecobalamin (B12 ACTIVE ORAL) Take 1 tablet by mouth once daily. CALCIUM CARBONATE/VITAMIN D3 (VITAMIN D-3 ORAL) Take by mouth twice daily. Current Facility-Administered Medications Medication Dose Route Frequency romosozumab-aqqg 210 mg injection (EVENITY) 210 mg SUBCUTANEOUS q 1 MONTH ALLERGIES Allergen Reactions Penicillins Hives Other reaction(s): hives all over body Social History Tobacco Use Smoking status: Never Smokeless tobacco: Never Vaping Use Vaping Use: Never used Substance Use Topics Alcohol use: No Drug use: No PAST MEDICAL HISTORY Diagnosis Date Anemia, unspecified iron deficiency Breast cancer (HCC) 08/2017 Breast mass 06/2017 right breast Diffuse cystic mastopathy Helicobacter pylori infection Hiatal hernia Major depressive disorder, single episode, unspecified 1999 depressed year after 3rd child: treated for 1 year with Zoloft Meniere disease Dr. Marie ENT Panic disorder without agoraphobia periodic symptoms PAST SURGICAL HISTORY Procedure Laterality Date BREAST RECONSTRUCTION implants removed and replaced BX BREAST W/DEVICE 1ST LESION ULTRASOUND GUID Right 06/12/2017 3 nodules; 5cm, 3cm, 3cm COLONOSCOPY FLX DX W/COLLJ SPEC WHEN PFRMD 03/01/2018 Colonoscopy EGD N/A 11/05/2021 FOOT SURGERY HX Left 1982 Arch reshaping HIP SURGERY HX 01/08/2022 torn labrum, reshaped femoral head LAPAROSCOPIC SALPING/OOPHORECTOMY Right 02/24/2019 Dr. Jasmin Sosa MASTECTOMY, SIMPLE, COMPLETE Bilateral 08/18/2017 Dr. Johnson (reconstruction), Dr. 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 Sosa-[facility] TOTAL ABD HYSTERECTOMY+BLAD REPR N/A 2020 left ovary removed; Dr. Sosa-[facility]- total hysterectomy with rectocele and bladder sling FAMILY HISTORY Problem Relation Age of Onset Cancer Mother melanoma Hypertension Mother Lipids Mother Breast Cancer Mother 63 Diabetes Mother Arthritis Father Lipids Father High Triglycerides Heart Father ICD/pacer, CHF/s/p [place] Diabetes Father Colon Cancer Paternal Grandmother Cancer Paternal Grandfather HCC-EtOH abuse Heart Maternal Uncle enlarged heart: cardiomyopathy Hypertension Brother Diabetes Sister Lipids Sister Ischemic Heart Disease Maternal Uncle Breast Cancer Other 49 maternal cousin (mothers-brothers child) REVIEW OF SYSTEMS Review of Systems Constitutional: Positive for activity change. HENT: Positive for voice change. Gastrointestinal: Positive for abdominal distention, abdominal pain and constipation. Heartburn All other systems reviewed and are negative. PHYSICAL EXAM BP 103/73 Pulse 72 Ht 5' 3.5 (1.61m) Wt 128 lb 12.8 oz (58.4kg) LMP 06/08/2020 BMI 22.46 kg/(m^2). Physical Exam Constitutional: Appearance: Normal appearance. She is normal weight. HENT: Head: Normocephalic and atraumatic. Eyes: General: No scleral icterus. Extraocular Movements: Extraocular movements intact. Conjunctiva/sclera: Conjunctivae normal. Pupils: Pupils are equal, round, and reactive to light. Cardiovascular: Rate and Rhythm: Normal rate and regular rhythm. Pulses: Normal pulses. Heart sounds: Normal heart sounds. Pulmonary: Effort: Pulmonary effort is normal. Breath sounds: Normal breath sounds. Abdominal: General: Abdomen is flat. Bowel sounds are normal. Palpations: Abdomen is soft. Tenderness: There is no abdominal tenderness. Musculoskeletal: General: Normal range of motion. Cervical back: Normal range of motion and neck supple. Skin: General: Skin is warm and dry. Coloration: Skin is not jaundiced. Neurological: General: No focal deficit present. Mental Status: She is alert and oriented to person, place, and time. Psychiatric: Mood and Affect: Mood normal. Behavior: Behavior normal. Thought Content: Thought content normal. Judgment: Judgment normal. Assessment/Plan (R10.12) LUQ pain (primary encounter diagnosis) (R14.0) Bloating (R68.81) Early satiety 1. LUQ pain -- Patient with increased LUQ pain, bloating and early satiety. -- Does have hx of H.pylori. Will check H.pylori stool test. Will stop her Prilosec for at least 7-10 days prior to stool testing. -- GES r/o gastroparesis - H PYLORI AG BY EIA,STOOL - NM GASTRIC EMPTYING SOLID; Future 2. Bloating -- Patient with increased LUQ pain, bloating and early satiety. -- Does have hx of H.pylori. Will check H.pylori stool test. Will stop her Prilosec for at least 7-10 days prior to stool testing. -- GES r/o gastroparesis - H PYLORI AG BY EIA,STOOL - NM GASTRIC EMPTYING SOLID; Future 3. Early satiety -- Patient with increased LUQ pain, bloating and early satiety. -- Does have hx of H.pylori. Will check H.pylori stool test. Will stop her Prilosec for at least 7-10 days prior to stool testing. -- GES r/o gastroparesis - H PYLORI AG BY EIA,STOOL - NM GASTRIC EMPTYING SOLID; Future Follow up in office PRN. Recommended to please call office/go to ER if fever, chills, chest pain, SOB, diarrhea, nausea, emesis, worsening abdominal pain, dehydration occurs I spent a total of 20 minutes on the date of the service which included preparing to see the patient, [id number] patient care, completing clinical documentation, obtaining and/or reviewing separately obtained history, performing a medically appropriate examination, counseling and educating the patient/family/caregiver, and ordering medications, tests, or procedures. Ceci Nava PA-C October 29, 2022 8:55 AM documented in this encounter [facility] 10-28-2022 History of Presen t illness Narrative Episode Visit Count: 7 Therapist That Will Accept/Oversee The Plan Of Care: Salas Sherman Start of Care Date: 09/11/22 Onset Date: 07/11/22 REHABILITATION AND SPORTS THERAPY PHYSICAL THERAPY TREATMENT NOTE ASSESSMENT: Greyson Rojas tolerated the session with decreased symptoms. She demonstrated improvements in hip pain. The patient will continue to benefit from ongoing skilled physical therapy to progress toward set goals. PLAN FOR NEXT VISIT: Needling and TENS for lumbar spine SUBJECTIVE: Patient Reason for Visit: Pt did well after last visit, but then she overdid it going to yoga 3 times in 4 days and bowling the 5th day. Pain calming since, but still not great today Pain: Pain Pain Level: 5 Pain Location: Hip - Right Description: Aching, Sore Frequency: Continuous OBJECTIVE MEASURES WITH LEVEL OF FUNCTION: Tenderness to glute med and min upon palpation TREATMENT: Therapeutic Exercise: 3: Fig 4 piriformis 3x30 sec 4: Knee to opposite shoulder stretch 3x30 sec Skilled Intervention: Patient was educated in proper exercise technique and purpose for exercises. Skilled judgment was provided in selection of appropriate interventions. Correct performance of therapeutic exercises was facilitated with verbal cuing. Manual Therapy: 2: STM and TrPr to R gluteals and piriformis with push to tolerance Dry Needling: (2) 75 mm needles to Glute min and Glute med each with placement of needles plus TENS. Lead 1 5.0 V, lead 2 3.5 V x10 min Skilled Intervention: Manual skills to improve joint mobility, ROM, and decrease pain. Utilized anatomy knowledge of the therapist, and assessment of patient's response to intervention. Billing Therapeutic Exercise Treatment Minutes: 6 Manual TherapyTreatment Minutes: 32 Total Treatment Time Minutes (timed/untimed): 38 Salas Sherman PT documented in this encounter [facility] 10-15-2022 History of Presen t illness Narrative Episode Visit Count: 5 Therapist That Will Accept/Oversee The Plan Of Care: Salas Sherman Start of Care Date: 09/11/22 Onset Date: 07/11/22 REHABILITATION AND SPORTS THERAPY PHYSICAL THERAPY TREATMENT NOTE ASSESSMENT: Greyson Rojas tolerated the session with decreased symptoms, expected muscle soreness, and no issues. She demonstrated difficulty with R lateral hip pain, with s/s consistent with trochanteric bursitis. The patient will continue to benefit from ongoing skilled physical therapy to progress toward set goals. PLAN FOR NEXT VISIT: Continue needling per tolerance, will begin BFR SUBJECTIVE: Patient Reason for Visit: Pt continues to have lateral hip pain that flares up everytime she pushes herself at yoga or in the gym. Notes aching and burning around the greater trochanter (pt points there). Pain: Pain Pain Level: 5 Pain Location: Hip - Right Description: Aching, Sore Frequency: Continuous OBJECTIVE MEASURES WITH LEVEL OF FUNCTION: Pain reproduced with palpation over greater trochanter, glute med and min TREATMENT: Therapeutic Exercise: 1: *SL hip abduction 3x5 2: *Clamshells 3x5 3: Fig 4 piriformis 3x30 sec 4: Knee to opposite shoulder stretch 3x30 sec 5: TA bracing x10, 5 sec holds Skilled Intervention: Patient was educated in proper exercise technique and purpose for exercises. Skilled judgment was provided in selection of appropriate interventions. Correct performance of therapeutic exercises was facilitated with verbal, visual, and tactile cuing. Manual Therapy: 2: STM and TrPr to R gluteals and piriformis with push to tolerance Dry Needling: (2) 75 mm needles to R glute min with pistoning and fanning; (1) 75 mm needles to R glute med with pistoning and fanning Skilled Intervention: Manual skills to improve joint mobility, ROM, and decrease pain. Utilized anatomy knowledge of the therapist, and assessment of patient's response to intervention. Dry needling to following Trigger points: glute med and min Needle length: 75mm 3.0 in . [place] used 3, needles removed 3. Dry needling technique used: Pistoning, Fanning, and Deep needling. Patient education on purpose, precautions, safety, risks, and other treatment options regarding dry needling. Verbal consent received. Billing Therapeutic Exercise Treatment Minutes: 12 Manual TherapyTreatment Minutes: 30 Total Treatment Time Minutes (timed/untimed): 42 Salas Sherman PT documented in this encounter [facility] 10-08-2022 History of Presen t illness Narrative Episode Visit Count: 4 Therapist That Will Accept/Oversee The Plan Of Care: Salas Sherman Start of Care Date: 09/11/22 Onset Date: 07/11/22 REHABILITATION AND SPORTS THERAPY PHYSICAL THERAPY TREATMENT NOTE ASSESSMENT: Greyson Rojas tolerated the session with fatigue and no issues. She demonstrated difficulty with R hip strengthening, fatiguing quickly. The patient will continue to benefit from ongoing skilled physical therapy to progress toward set goals. PLAN FOR NEXT VISIT: Continue exercise progression per tolerance, manual as needed SUBJECTIVE: Patient Reason for Visit: Pt doing better, still gets fatigued with back to back days of yoga or heavy exertion exercises. Has continued cessation of stair climber. Pain: Pain Pain Level: 3 Pain Location: Hip - Right Description: Aching, Sore Frequency: Continuous OBJECTIVE MEASURES WITH LEVEL OF FUNCTION: Tenderness to R gluteals TREATMENT: Therapeutic Exercise: 1: *SL hip abduction 3x10 2: *Clamshells 3x10 3: Fig 4 piriformis 3x30 sec 4: Knee to opposite shoulder stretch 3x30 sec 5: TA bracing x10, 5 sec holds Skilled Intervention: Patient was educated in proper exercise technique and purpose for exercises. Skilled judgment was provided in selection of appropriate interventions. Provided written instruction for home exercise program to facilitate proper performance and compliance. Correct performance of therapeutic exercises was facilitated with verbal, visual, and tactile cuing. Manual Therapy: 2: STM and TrPr to R gluteals and piriformis with push to tolerance Skilled Intervention: Manual skills to improve joint mobility, ROM, and decrease pain. Utilized anatomy knowledge of the therapist, and assessment of patient's response to intervention. Billing Therapeutic Exercise Treatment Minutes: 24 Manual TherapyTreatment Minutes: 15 Total Treatment Time Minutes (timed/untimed): 39 Salas Sherman PT documented in this encounter [facility] 10-01-2022 Nurse Note The patient is here for an injection of Evenity 210 mg (105 mg/1.17 mL X2) INJECTION # 1 OF 12 Dose: 210 mg Route: Subcutaneous Lot# [id number] Expiration date 04/2024 [facility]: 04351-484-09 Given without incident. Site: left arm Dr. Smith present in clinic at time of injection. The date due for the next injection is in 30 days, on or after 11/01/2022. ZBIGNIEW: 07/14/2022 NOV: Will need 03/2023 Insurance: [employer] ([employer] 10/01/2022---09/30/2023 Labs: 05/30/22 Calcium 9.1, Vitamin D 68.4 DX: M81.8 CPT: J0897 DXA: 04/2022 (T-Score -3.2 Spine) Patient education was given by nurse. Patient tolerated Injection well, in NAD and no reactions noted. Medication supplied by [facility]. Gisselle Cai RN documented in this encounter [facility] 09-30-2022 History of Presen t illness Narrative Episode Visit Count: 3 Therapist That Will Accept/Oversee The Plan Of Care: Salas Sherman Start of Care Date: 09/11/22 Onset Date: 07/11/22 REHABILITATION AND SPORTS THERAPY PHYSICAL THERAPY TREATMENT NOTE ASSESSMENT: Greyson Rojas tolerated the session with decreased symptoms and expected muscle soreness. She demonstrated improvements in hip pain. The patient will continue to benefit from ongoing skilled physical therapy for reassessment by supervising therapist. PLAN FOR NEXT VISIT: [place] SUBJECTIVE: Patient Reason for Visit: Pt doing better since the SIJ injection. Notes 60% improvement, and the needling from last session helped as well. Pain: Pain Pain Level: 4 Pain Location: Hip - Right Description: Aching, Sore Frequency: Continuous OBJECTIVE MEASURES WITH LEVEL OF FUNCTION: TREATMENT: Therapeutic Exercise: 1: *Knee to opposite shoulder 3x30 sec 2: *QL stretch on R 3x30 sec Skilled Intervention: Patient was educated in proper exercise technique and purpose for exercises. Skilled judgment was provided in selection of appropriate interventions. Manual Therapy: 1: Manual stretch to R QL 3x30 sec 2: STM and TrPr to R QL, Glute min Dry Needling: (1) 75 mm needle to R QL with pistoning and fanning; (1) 75 mm needle to R glute min with pistoning and fanning Skilled Intervention: Manual skills to improve joint mobility, ROM, and decrease pain. Utilized anatomy knowledge of the therapist, and assessment of patient's response to intervention. Billing Therapeutic Exercise Treatment Minutes: 5 Manual TherapyTreatment Minutes: 35 Total Treatment Time Minutes (timed/untimed): 40 Salas Sherman PT documented in this encounter [facility] 09-25-2022 Miscellaneous Notes Yes she is see my previous [employer] messages with her. Thanks. Thank you. I placed the order. If you could confirm that she is done with the Tamoxifen. If that is the case, then we can go ahead and administer as scheduled HH Patient is scheduled for an Evenity Injection on 10/01/2022. Please place CAM orders for ongoing monthly injections accordingly. Thank you. documented in this encounter [facility] 09-23-2022 History of Presen t illness Narrative Radiology Service Progress Note PATIENT NAME: Greyson Rojas DATE OF SERVICE: September 23, 2022 TIME: 11:42 AM PATIENT IDENTITY VERIFICATION COMPLETED USING TWO (2) IDENTIFIERS: Name and Date of confirmed by patient verbally. FALL SCREENING: Has the patient had 2 falls in the last year or 1 fall with injury or currently using an Ambulatory Assistive Device (Walker, Cane, Wheelchair, Crutches, etc.)? No PATIENT GENDER DATA: Female. status: : No status: NO. PATIENT RELEVANT IMPLANT DATA REVIEWED: Not Applicable RADIOLOGY DEPARTMENT: General X-ray: Exam(s) Completed: THERAPEUTIC JOINT INJECTION RIGHT SI JOINT INJECTION PERIPHERAL IV DATA: Not applicable SIGNED BY: RT Siri(R) September 23, 2022 11:42 AM documented in this encounter [facility] 09-19-2022 Miscellaneous Notes Patient is scheduled on 10/01/2022. Closed. Patient did not review her [employer] message. Called patient's home/cell# at [phone] left voice message to call office at [phone], and ask to speak to the nurse. Received a faxed notification from [employer] that patient has been APPROVED for RX EVENITY INJECTIONS. Effective: 10/01/2022--09/30/2023. Authorization Approval# [id number] Maintenance dose frequency 31 days. Dose approved: 12 Patient made aware via [employer] message. Will await her response back to schedule. KEEP OPEN UNTIL SHE RESPONDS BACK. Called Faustino Hanna (Sunday) and was told that a PA is required for Evenity Injections and that this needed to be completed with [place]. Start date to be 10/01/2022. Call ref# [id number]. Contacted [place] at P: [phone] (F:[phone]) spoke to Joy and completed questionnaire over the phone. This will be reviewed and we will receive the decision or additional information needed within 1 business day via fax. Call tracking# [id number]. KEEP OPEN. Patient has been ordered Evenity 210 mg Subcutaneous Injection Therapy, every 30 days every 30 days for 12 months. This will be bought and billed by [facility], and administered by RN in the office. Ordered by: Dr Wisdom Insurance: [facility] ([employer]) ID# [id number] Group#[id number] DX: M81.8 CPT: J3111 DXA: 04/2022 T-Score -3.2 Spine. Patient started Tamoxifen in 2017 and Anastrozole in 10/2020 but could not tolerate due to joint pain so she was placed back on Tamoxifen again and to take until 09/2022. Once completed she will start Evenity 210 mg every 30 days for 12 months. Reason for Therapy / Tried and Failed: Patient has GERD so oral Bisphosphonates are contraindicated. Will contact [facility] [place] to check if PA is required. Then proceed with scheduling. Patient will begin injections in October 2022 once Tamoxifen Therapy is completed. KEEP OPEN. documented in this encounter [facility] 09-19-2022 History of Presen t illness Narrative Episode Visit Count: 2 Therapist That Will Accept/Oversee The Plan Of Care: Salas Sherman Start of Care Date: 09/11/22 Onset Date: 07/11/22 REHABILITATION AND SPORTS THERAPY PHYSICAL THERAPY TREATMENT NOTE ASSESSMENT: Greyson Rojas tolerated the session with decreased symptoms, expected muscle soreness, and no issues. She demonstrated difficulty with pain to QL that reproduced much of her SIJ pain. The patient will continue to benefit from ongoing skilled physical therapy to progress toward set goals. PLAN FOR NEXT VISIT: Continue manual per tolerance and symptoms, progress core strengthening SUBJECTIVE: Patient Reason for Visit: Pt notes she will be having a SIJ injection next week Tues. She had some relief of her symptoms after last session but they returned soon after. Pain: Pain Pain Level: 8 Pain Location: Hip - Right OBJECTIVE MEASURES WITH LEVEL OF FUNCTION: Palpation to QL reproduces SIJ pain TREATMENT: Therapeutic Exercise: 1: *TA bracing 3x10, 5 sec holds 2: *TA bracing with BKFO 3x10/side 3: *TA bracing with hip hikes 3x10 4: Discussed with pt ceasing stairmaster currently but continuing with nonpainful yoga for recreational exercise Skilled Intervention: Patient was educated in proper exercise technique and purpose for exercises. Skilled judgment was provided in selection of appropriate interventions. Provided written instruction for home exercise program to facilitate proper performance and compliance. Correct performance of therapeutic exercises was facilitated with verbal, visual, and tactile cuing. Manual Therapy: 1: Manual stretch to R QL 3x30 sec Dry Needling: (1) 75 and 100 mm needle to R QL (L5 portion) with pistoning Skilled Intervention: Manual skills to improve joint mobility, ROM, and decrease pain. Utilized anatomy knowledge of the therapist, and assessment of patient's response to intervention. Billing Therapeutic Exercise Treatment Minutes: 20 Manual TherapyTreatment Minutes: 25 Total Treatment Time Minutes (timed/untimed): 45 Salas Sherman PT documented in this encounter [facility] 09-18-2022 Miscellaneous Notes Closed. Message sent to patient. Keep open in case she responds back. Awaiting patient's response back. KEEP OPEN. documented in this encounter [facility] 09-16-2022 History of Presen t illness Narrative I have reviewed the history and physical obtained by my resident or fellow. HPI explored in detail with the patient. Pt was seen by me and phillips findings were confirmed. I agree with the findings as documented. I personally participated the patient's assessment and treatment recommendations. Renan Paige MD Images from the original note were not included. September 16, 2022 CC: Right hip follow up HPI: Clementina returns 8 months s/p right hip arthroscopy. She reports she has been working out more doing yoga (hot power), strength training once a week and cardio once a week. She reports increased pain in her right posterior buttock and back over the past several months that is aggravated by exercise. She does not have pain if she doesn't exercise. She has restarted PT and they did some dry needling last week. She denies anterior groin pain, mechanical symptoms, night time pain, or feeling of instability. She denies interim injury or trauma. PAIN EVALUATION 09/15/20222014 Pain Level: 6 Description: Aching;Stiffness;Tightness Duration Amount of Time: 12 Duration Units: Hours Frequency: Continuous Intervention/Comfort measure: Exercise;Heat;Massage;Other: See comment Comments: I have started dry needling therapy Past Medical History: PAST MEDICAL HISTORY Diagnosis Date Anemia, unspecified iron deficiency Breast cancer (HCC) 08/2017 Breast mass 06/2017 right breast Diffuse cystic mastopathy Helicobacter pylori infection Hiatal hernia Major depressive disorder, single episode, unspecified 1999 depressed year after 3rd child: treated for 1 year with Zoloft Meniere disease Dr. Marie ENT Panic disorder without agoraphobia periodic symptoms Family History: FAMILY HISTORY Problem Relation Age of Onset Cancer Mother melanoma Hypertension Mother Lipids Mother Breast Cancer Mother 63 Diabetes Mother Arthritis Father Lipids Father High Triglycerides Heart Father ICD/pacer, CHF/s/p VT Diabetes Father Colon Cancer Paternal Grandmother Cancer Paternal Grandfather HCC-EtOH abuse Heart Maternal Uncle enlarged heart: cardiomyopathy Hypertension Brother Diabetes Sister Lipids Sister Ischemic Heart Disease Maternal Uncle Breast Cancer Other 49 maternal cousin (mothers-brothers child) Social History Medications: meloxicam (MOBIC) 15 mg tablet Take 1 tablet by mouth once daily. For 14 days then as needed. Take with a meal venlafaxine ER (EFFEXOR XR) 37.5 mg 24 hr capsule TAKE 1 CAPSULE ONCE DAILY COMPRESSION SLEEVE as directed. Breast cancer. 20-30 mmHg tamoxifen (NOLVADEX) 20 mg tablet Take 1 tablet (20 mg) by mouth once daily. omeprazole (PRILOSEC) 20 mg capsule Take 1 capsule by mouth once daily. Lactobacillus acidophilus (PROBIOTIC ORAL) Take by mouth. docusate sodium (COLACE) 100 mg capsule Take by mouth. turmeric-turmeric root extract 450-50 mg cap Take by mouth. mecobalamin (B12 ACTIVE ORAL) Take 1 tablet by mouth once daily. CALCIUM CARBONATE/VITAMIN D3 (VITAMIN D-3 ORAL) Take by mouth twice daily. GEMTESA 75 mg tablet Take 75 mg by mouth once daily. Allergies: ALLERGIES Allergen Reactions Penicillins Hives Other reaction(s): hives all over body Review of Systems: GENERAL: No weight loss, malaise or fevers MUSCULOSKELETAL: See HPI Physical Exam: Musculoskeletal Exam: Gait normal, Posture: erect and normal. Exam: Right Left Single Leg Trendelenburg Positive negative Hip flexion 110 110 IR 20 20 ER 50 50 Anterior impingement negative negative Dynamic labral stress negative negative RUMA positive negative Posterior Impingement negative negative TERRIE negative negative Strength Right Left Supine HF 5/5 5/5 Upright HF 5/5 5/5 Adduction 5/5 5/5 Abduction 4/5 5/5 Tenderness with Palpation: Right Left Greater Troch Positive negative Gluteus Medius Positive Negative Piriformis Positive Negative SI Joint Positive Negative Pain with lumbar hyperextension, side bending, and forward flexion. Assessment: 8 months s/p right hip arthroscopy, Sacroilitis, trochanteric bursitis and piriformis syndrome of right hip Plan: Discussed that a majority of the patient's symptoms are related to surrounding soft tissues. The patient rates posterior pain as greatest. Therefore we recommend starting with US guided SI joint injection, which we ordered. In the meanwhile, continue PT and focus on gluteal activation and core stability. If patient does not improve in a few weeks, we will then see the patient back and consider a trochanteric bursa injection. Follow up : Dr. Paige following above documented in this encounter [facility] 09-11-2022 History of Presen t illness Narrative Episode Visit Count: 1 Therapist That Will Accept/Oversee The Plan Of Care: Salas Sherman Start of Care Date: 09/11/22 Onset Date: 07/11/22 Patient Identified by Name and Date of : Yes REHABILITATION AND SPORTS THERAPY PHYSICAL THERAPY EVALUATION PLAN OF CARE: Assessment: Greyson Rojas presents with chief complaint of R hip pain that interferes with heavy exertion, physical activities, recreational activities . She presents with impairments in ADL's, independence in exercise, overall function, range of motion, strength , symptom management, and tissue tenderness. PROMIS (Patient-Reported Outcomes Measurement Information System) scores were reviewed and all domains identified as within normal limits. Prognosis for therapy is Excellent due to: current objective clinical presentation, good overall health status, positive past response to therapy, within-session changes, good support system/ coping skills . She will benefit from skilled therapy services to meet the goals established for this plan of care as noted below. Goals for Episode of Care: created on 09/11/22 through 11/09/22 [place] in home exercise program. Patient will decrease pain rating by 2 points to meet minimal clinical important difference for numeric pain rating scale. Patient will increase active ROM of R hip to WNL pain free to allow pt to to improve performance of ADLs. Patient will demonstrate increase in R hip strength to 5/5 during manual muscle testing in order to improve function for leisure / recreation skills, moderate to heavy functional tasks, prior functional tasks, and work tasks. Perform Recreational tasks and work tasks with decreased report of symptoms/pain in 8-12 weeks. Perform self care, ADLs without pain. Planned Interventions, Frequency, and Duration: Current Frequency: 2x/week Duration: 12 weeks Total Number of Visits Planned: 20 Planned Treatment Interventions: Therapeutic exercise (77839), Neuromuscular re-education (34617), Manual therapy (18408), Therapeutic activities (73058), Self-group home management (58905), Gait Training (90118), Patient/Family/Caregiver Education, Body Mechanics Training Patient demonstrates good understanding of plan of care and treatment. The above goals and plan of care were discussed and agreed upon by patient/family. SUBJECTIVE: Greyson Rojas is a 52 year old female seen today for Pt had return of R hip pain with increased activity. Notes the onyl thing that makes it feel better is rest. Yoga and gym exercises both seem to cause pain. Functional Limitations: heavy exertion, physical activities, recreational activities Prior Level of Function: Independent without limitations Intake Information: Prescription present Previous Treatment: Surgery , Physical Therapy Pain: Pain Pain Level: 8 Pain Location: Hip - Right Description: Aching, Sore, Tightness Frequency: Continuous Post Treatment Pain Post Treatment Pain Level: 2 Post Treatment Pain Location: Hip - Right Post Treatment Pain Description: Dull, Sore PROMIS Scales Higher is Better 01/08/2022 05/26/2022 07/07/2022 Phys Func - Score 29 (severe dysfunction) - - Phys Func - Percentile 2 % - - Social Roles - Score 52 (within normal limits) - - Social Role - Percentile 58 % - - GH Physical - Score 42.3 (Good) 47.7 (Good) 47.7 (Good) GH Physical - Percentile 22 % 41 % 41 % GH Mental - Score 67.6 (Excellent) 56 (Excellent) 67.6 (Excellent) GH Mental - Percentile 96 % 73 % 96 % Self-Eff Symptom - Score 50 (Average) - - Self-Eff Symptom - Percentile 50 % - - T-scores: mean of general population = 50. 5 points is clinically meaningfully difference Percentiles provide an indication of how the patient's score ranks in relation to the general population. Higher percentile rankings indicate better function/quality of life. 50th percentile is the average of the general population and indicates half of respondents had a worse score. Lower is Better 10/13/2021 11/17/2021 01/08/2022 Fatigue - Score 51 (within normal limits) 45 (within normal limits) 45 (within normal limits) Fatigue - Percentile 46 % 69 % 69 % T-scores: mean of general population = 50. 5 points is clinically meaningfully difference Percentiles provide an indication of how the patient's score ranks in relation to the general population. Higher percentile rankings indicate better function/quality of life. 50th percentile is the average of the general population and indicates half of respondents had a worse score. OBJECTIVE MEASURES WITH LEVEL OF FUNCTION: Hip Observations R Hip Palpation Tenderness: Gluteals, Piriformis LE AROM R LE AROM: WNL L LE AROM: WNL but painful at end range adduction plus flexion and ER plus flexion LE Strength Trunk Strength: 4+/5 R LE Strength: 4+/5 grossly L LE Strength: 5/5 Education: Education Learning/educational needs: Home exercise program, Plan of Care, Changes in Plan of Care, Body Mechanics TREATMENT: PT Treatment Interventions: Therapeutic Exercise, Manual Therapy Evaluation Therapeutic Exercise: 1: *Supine fig 4 piriformis stretch 3x30 sec on R 2: *Knee to opposite shoulder stretch 3x30 sec 3: *SKC 3x30 sec Skilled Intervention: Patient was educated in proper exercise technique and purpose for exercises. Skilled judgment was provided in selection of appropriate interventions. Provided written instruction for home exercise program to facilitate proper performance and compliance. Correct performance of therapeutic exercises was facilitated with verbal, visual, and tactile cuing. Manual Therapy: 1: STM and CFM to R glute med, min, and piriformis with push to tolerance Dry Needling: (2) 60 mm needles to R glute min with pistoning and fanning; (1) 75 mm needle to R glute med with pistoning and fanning; (1) 60 mm needle to R piriformis with pistoning and fanning Skilled Intervention: Manual skills to improve joint mobility, ROM, and decrease pain. Utilized anatomy knowledge of the therapist, and assessment of patient's response to intervention. Billing * Evaluation Low Complexity: 1 Unit Therapeutic Exercise Treatment Minutes: 8 Manual TherapyTreatment Minutes: 20 Total Treatment Time Minutes (timed/untimed): 45 Salas Sherman PT documented in this encounter [facility] 09-04-2022 Miscellaneous Notes Patient called back and said she received a message that she would be called when the nurse returned on August 28, but she did not receive a call and needs to get them scheduled. Asked if she can receive a call today. TY Resolved CLOSED Karrie Cai will assist when she returns on 08/28/22 to arrange the injections. I will let patient know via [employer]. KEEP OPEN: Karrie S: SEE MESSAGE Patient left voice mail asking to be scheduled for nurse visit for her injections of Evenity. Plan was end of Sep according to last office visit, but she needs to request off work. Please call patient to schedule. documented in this encounter [facility] 07-15-2022 Instructions Aida Madden PA-C - 07/15/2022 2:17 PM EST Decrease exercise frequency and intensity Focus on gluteal activation, core stability. Yoga - relaxation, restorative to start Avoid activities requiring hip flexion past 90 degrees Ice after Consider revisit with PT in August documented in this encounter [facility] 07-15-2022 History of Presen t illness Narrative July 15, 2022 CC: Right hip follow up HPI: Clementina returns 6 months s/p right hip arthroscopy. She reports she has been working out more since her [facility] health visit with Dr. Paige 3 months ago. She reports that if she is doing yoga (hot power) 3 times per week, strength training once a week and cardio once a week. She reports increased stiffness and tightness with exercise over the last 3 weeks. She reports. She reports increased tightness following a circuit class about 2 weeks ago. She notes increased tightness with lunge type motions and warrior to pose. She has not been as consistent with her home exercise program since discharge from PT in the end of May. She denies interim injury or trauma. PAIN EVALUATION 07/15/2022 1335 Pain Level: 4 Pain Location: Hip-Right Description: Tightness Duration Units: Weeks Frequency: Continuous Intervention/Comfort measure: Relaxation Past Medical History: PAST MEDICAL HISTORY Diagnosis Date Anemia, unspecified iron deficiency Breast cancer (HCC) 08/2017 Breast mass 06/2017 right breast Diffuse cystic mastopathy Helicobacter pylori infection Hiatal hernia Major depressive disorder, single episode, unspecified 1999 depressed year after 3rd child: treated for 1 year with Zoloft Meniere disease Dr. Marie ENT Panic disorder without agoraphobia periodic symptoms Family History: FAMILY HISTORY Problem Relation Age of Onset Cancer Mother melanoma Hypertension Mother Lipids Mother Breast Cancer Mother 63 Diabetes Mother Arthritis Father Lipids Father High Triglycerides Heart Father ICD/pacer, CHF/s/p VT Diabetes Father Colon Cancer Paternal Grandmother Cancer Paternal Grandfather HCC-EtOH abuse Heart Maternal Uncle enlarged heart: cardiomyopathy Hypertension Brother Diabetes Sister Lipids Sister Ischemic Heart Disease Maternal Uncle Breast Cancer Other 49 maternal cousin (mothers-brothers child) Social History Medications: venlafaxine ER (EFFEXOR XR) 37.5 mg 24 hr capsule TAKE 1 CAPSULE ONCE DAILY COMPRESSION SLEEVE as directed. Breast cancer. 20-30 mmHg tamoxifen (NOLVADEX) 20 mg tablet Take 1 tablet (20 mg) by mouth once daily. omeprazole (PRILOSEC) 20 mg capsule Take 1 capsule by mouth once daily. Lactobacillus acidophilus (PROBIOTIC ORAL) Take by mouth. docusate sodium (COLACE) 100 mg capsule Take by mouth. turmeric-turmeric root extract 450-50 mg cap Take by mouth. mecobalamin (B12 ACTIVE ORAL) Take 1 tablet by mouth once daily. CALCIUM CARBONATE/VITAMIN D3 (VITAMIN D-3 ORAL) Take by mouth twice daily. Allergies: ALLERGIES Allergen Reactions Penicillins Hives Other reaction(s): hives all over body Physical Exam: Musculoskeletal Exam: Gait normal, Posture: erect and normal. Exam: Right Left Single Leg Trendelenburg Positive Positive Hip flexion 110 110 IR 25 20 ER 60 60 Anterior impingement negative negative Dynamic labral stress negative negative RUMA positive negative Posterior Impingement negative negative TERRIE negative negative Strength Right Left Supine HF 5/5 5/5 Upright HF 5/5 5/5 Adduction 5/5 5/5 Abduction 5-/5 5/5 Tenderness with Palpation: Right Left Greater Troch Positive Positive Gluteus Medius Positive Negative Piriformis Negative Negative Review of Systems: GENERAL: No weight loss, malaise or fevers MUSCULOSKELETAL: See HPI Assessment: 6 months s/p right hip arthroscopy, tight anterior capsule, trochanteric bursitis Plan: Discussed Discussed decreased frequency of yoga and decreased intensity. Modify cardio and strengthening as necessary. Focus on gluteal activation and core stability. Order for physical therapy for reevaluation after the first of the year. Course of meloxicam 15 mg once daily with a meal for 14 days then as needed. Follow up : Dr. Paige in 2 to 3 months. Aida Madden PA-C This note was partially generated using [employer] voice recognition system, and there may be some incorrect words, spellings, and punctuation that were not noted in checking the note before saving. documented in this encounter [facility] 07-14-2022 Instructions Esme Wisdom MD - 07/14/2022 5:34 PM EST Target total calcium intake 1200 mg/day from diet and/or supplements We will start you on Evenity after you are done with tamoxifen Here is the estimated calcium content of a variety of foods: Produce Serving Size Estimated Calcium* Carmella greens, frozen 8 oz 360 mg Broccoli disha 8 oz 200 mg Kale, frozen 8 oz 180 mg Soy Beans, green, boiled 8 oz 175 mg Bok Aniket, cooked, boiled 8 oz 160 mg Figs, dried 2 figs 65 mg Broccoli, fresh, cooked 8 oz 60 mg Oranges 1 whole 55 mg Seafood Serving Size Estimated Calcium* Sardines, canned with bones 3 oz 325 mg Clements, canned with bones 3 oz 180 mg Shrimp, canned 3 oz 125 mg Dairy Serving Size Estimated Calcium* Ricotta, part-skim 4 oz 335 mg Yogurt, plain, low-fat 6 oz 310 mg Milk, skim, low-fat, whole 8 oz 300 mg Yogurt with fruit, low-fat 6 oz 260 mg Mozzarella, part-skim 1 oz 210 mg Cheddar 1 oz 205 mg Yogurt, Colombian 6 oz 200 mg Omani Cheese 1 oz 195 mg Feta Cheese 4 oz 140 mg Cottage Cheese, 2% 4 oz 105 mg Frozen yogurt, vanilla 8 oz 105 mg Ice Cream, vanilla 8 oz 85 mg Parmesan 1 tbsp 55 mg Fortified Food Serving Size Estimated Calcium* [place] milk, rice milk or soy milk, fortified 8 oz 300 mg Peterman juice and other fruit juices, fortified 8 oz 300 mg Tofu, prepared with calcium 4 oz 205 mg Waffle, frozen, fortified 2 pieces 200 mg Oatmeal, fortified 1 packet 140 mg Kazakh muffin, fortified 1 muffin 100 mg Cereal, fortified 8 oz 100-1,000 mg Other Serving Size Estimated Calcium* Mac & cheese, frozen 1 package 325 mg Pizza, cheese, frozen 1 serving 115 mg Pudding, chocolate, prepared with 2% milk 4 oz 160 mg Beans, baked, canned 4 oz 160 mg documented in this encounter [facility] 07-14-2022 History of Presen t illness Narrative Images from the original note were not included. ENDOCRINOLOGY CLINIC NOTE Reason for visit Greyson Rojas is a pleasant 52 year old female with history of GERD and breast cancer presented for follow up of low bone density. HPI Ms. Rojas was diagnosed with breast cancer and underwent b/l mastectomy in 2017, pathology showed lobular carcinoma with no mets. She was started on Tamoxifen 09/2017, and anastrozole in 10/2020 but could not tolerate due to joint pain. The plan is to take Tamoxifen for a total of 5 years (will finish in 09/2022) Of note, she is a carrier for H63D for hemochromatosis. Evaluation in 05/2022 showed total Ca 9. iCa 1.15, P 3.3, vitamin D 68, PTH 59, GFR 67, 24 hr urine Ca 75 and SPEP with no M protein. Screening spine xrays did not show fractures Most recent DXA 04/2022 (compared to 2018 because 2019 machine was different): L spine BMD 0.690, T score -3.2 (11.4% decrease) L TH BMD 0.813, T score -1.1 (1.9% decrease) L FN BMD 0.602, T score -2.2 ( 2.9% decrease) Fracture history: Shoulder fracture 6 years ago during running and a fall Treatment history (including any side effects/contraindications): None Family history of metabolic bone disease or fractures: Mother has osteoporosis and had shoulder fracture Father had hip fracture Risk factors: > Menstrual history/male hypogonadism: - last period: early 50s - periods were regular > Medication exposures/pertinent medical or 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: (Glucocorticoid, AED use, relevant medications, hyperthyroidism, kidney stone/disease, eating disorder, malabsorption, immobility, smoking, excessive alcohol use etc) Anastrozole exposure. No smoking or excessive alcohol intake Calcium/Vit D intake: Dietary calcium: Supplements: was on calcium carbonate and switched to citrate 1600 mg per day Vitamin D intake: total 2000 units daily Weight bearing exercise: She does yoga and lift weights, and cardio Dental Procedure: None Radiation Exposure: None Height Loss: Possibly half an inch Past Medical History PAST MEDICAL HISTORY Diagnosis Date Anemia, unspecified iron deficiency Breast cancer (HCC) 08/2017 Breast mass 06/2017 right breast Diffuse cystic mastopathy Helicobacter pylori infection Hiatal hernia Major depressive disorder, single episode, unspecified 1999 depressed year after 3rd child: treated for 1 year with Zoloft Meniere disease Dr. Marie ENT Panic disorder without agoraphobia periodic symptoms Past Surgical History PAST SURGICAL HISTORY Procedure Laterality Date BREAST RECONSTRUCTION implants removed and replaced BX BREAST W/DEVICE 1ST LESION ULTRASOUND GUID Right 06/12/2017 3 nodules; 5cm, 3cm, 3cm COLONOSCOPY FLX DX W/COLLJ SPEC WHEN PFRMD 03/01/2018 Colonoscopy EGD N/A 11/05/2021 FOOT SURGERY HX Left 1981 Arch reshaping HIP SURGERY HX 01/08/2022 torn labrum, reshaped femoral head LAPAROSCOPIC SALPING/OOPHORECTOMY Right 02/24/2019 Dr. Jasmin Sosa MASTECTOMY, SIMPLE, COMPLETE Bilateral 08/18/2017 Dr. Johnson (reconstruction), Dr. 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 Sosa-[facility] TOTAL ABD HYSTERECTOMY+BLAD REPR N/A 2020 left ovary removed; Dr. Sosa-[facility]- total hysterectomy with rectocele and bladder sling Medications Current Outpatient Medications Medication Sig COMPRESSION SLEEVE as directed. Breast cancer. 20-30 mmHg tamoxifen (NOLVADEX) 20 mg tablet Take 1 tablet (20 mg) by mouth once daily. omeprazole (PRILOSEC) 20 mg capsule Take 1 capsule by mouth once daily. Lactobacillus acidophilus (PROBIOTIC ORAL) Take by mouth. Ascorbic Acid 500 mg cpER Take by mouth. cholecalciferol (VITAMIN D3) 1,000 unit tab tablet Take by mouth. docusate sodium (COLACE) 100 mg capsule Take by mouth. turmeric-turmeric root extract 450-50 mg cap Take by mouth. venlafaxine ER (EFFEXOR XR) 37.5 mg 24 hr capsule TAKE 1 CAPSULE ONCE DAILY mecobalamin (B12 ACTIVE ORAL) Take 1 tablet by mouth once daily. CALCIUM CARBONATE/VITAMIN D3 (VITAMIN D-3 ORAL) Take by mouth twice daily. No current facility-administered medications for this visit. The medication list in the chart was reviewed. Allergies ALLERGIES Allergen Reactions Penicillins Hives Other reaction(s): hives all over body The allergy list in the chart was reviewed. Family History FAMILY HISTORY Problem Relation Age of Onset Cancer Mother melanoma Hypertension Mother Lipids Mother Breast Cancer Mother 63 Diabetes Mother Arthritis Father Lipids Father High Triglycerides Heart Father ICD/pacer, CHF/s/p VT Diabetes Father Colon Cancer Paternal Grandmother Cancer Paternal Grandfather HCC-EtOH abuse Heart Maternal Uncle enlarged heart: cardiomyopathy Hypertension Brother Diabetes Sister Lipids Sister Ischemic Heart Disease Maternal Uncle Breast Cancer Other 49 maternal cousin (mothers-brothers child) Social History Social History Tobacco Use Smoking status: Never Smokeless tobacco: Never Vaping Use Vaping Use: Never used Substance Use Topics Alcohol use: No Drug use: No Review of Systems: 10 point review of systems was negative other than what is mentioned in the H&P Physical Exam LMP 06/08/2020 (Approximate) There is no height or weight on file to calculate BMI. Last 3 Encounter Ht Readings: Date: Ht: 05/16/2022 161.3 cm (5' 3.5) 04/23/2022 161.3 cm (5' 3.5) 04/03/2022 161.9 cm (5' 3.75) General Appearance: Alert, cooperative, not in distress Previous exam Head: Normocephalic, atraumatic Neck: Supple Cardiovascular: Regular rate and rhythm, no murmur, rub, or gallop Respiratory: Clear to auscultation bilaterally Musculoskeletal: There is tenderness in the mid and lower back Extremities: No edema Skin: no rash Neurologic: AAOx 3 Psychiatric: appropriate mood Imaging DXA scans as above Recent Laboratory Data: Assessment and recommendations Greyson Rojas is a pleasant 52 year old female presented for follow-up of low bone density. Low bone density Most recent DXA from 04/2022 shows lowest T score -3.2 at the spine with 11% decline compared to 2018. She has not had fragility fractures. Risk factors for low bone density include age, ethnicity, lean body habitus, family history, postmenopausal state and tamoxifen exposure in the premenopausal period. Evaluation for secondary causes of low BMD was unremarkable, other than slightly low urine calcium. Spine x-rays did not show vertebral fractures It was discussed with the patient that pharmacologic therapy is appropriate based on her bone density and risk factors for fracture. Risks, benefits, potential side effects, and fracture data for bisphosphonates, denosumab, teriparatide/abaloparatide and romosozumab were previously reviewed and information was provided in the after visit summary. The best sequence would be to start with anabolic agent followed by an antiresorptive agent, especially that her levels BMD is at the spine level. After discussing the above, we will start Evenity (in late September-October) after she finishes the tamoxifen. We discussed the possible side effects including the cardiovascular risk She was advised to achieve a total of 1200 mg/day of calcium intake. I agree with switching from calcium carbonate to calcium citrate. We will continue with her current vitamin D intake Some of the above has been copied from prior documentation on 05/27/2022 but phillips elements reviewed, confirmed, and/or updated by me (Esme Wisdom MD) on 07/14/2022 I spent a total of 40 minutes on the date of the service which included preparing to see the patient, [id number] patient care, completing clinical documentation, and counseling and educating the patient/family/caregiver. Virtual Visit (Audio/Visual)I have discussed the nature of this visit with the patient which will occur via [facility] (Phone, Virtual Visit) and she agrees to proceed with this interaction. This note was created using [employer] dictation software. You may find errors that were missed during proofreading. They are purely unintentional and if there are any concerns regarding this dictation, please do not hesitate to call the dictating provider for clarification. Esme Wisdom MD documented in this encounter [facility] 06-05-2022 Miscellaneous Notes See more recent telephone encounter from 05/08. Rossi Martinez APRN.FAHEEM documented in this encounter [facility] 06-03-2022 History of Presen t illness Narrative Radiology Service Progress Note PATIENT NAME: Greyson Rojas DATE OF SERVICE: June 03, 2022 TIME: 4:02 PM PATIENT IDENTITY VERIFICATION COMPLETED USING TWO (2) IDENTIFIERS: Name and Date of confirmed by patient verbally. FALL SCREENING: Has the patient had 2 falls in the last year or 1 fall with injury or currently using an Ambulatory Assistive Device (Walker, Cane, Wheelchair, Crutches, etc.)? No PATIENT GENDER DATA: Female. status: : No status: NO. PATIENT RELEVANT IMPLANT DATA REVIEWED: Not Applicable RADIOLOGY DEPARTMENT: General X-ray: Exam(s) Completed: Spine X-Ray(s): Thoracic and Lumbar AP / LAT / L5-S1 PERIPHERAL IV DATA: Not applicable SIGNED BY: RT Felipa(R) June 03, 2022 4:02 PM documented in this encounter [facility] 05-28-2022 Miscellaneous Notes See TE 05/28 Eula Chaparro Ma documented in this encounter [facility] 05-27-2022 Instructions Esme Wisdom MD - 05/27/2022 3:41 PM EDT - Take vitamin D 2000 units daily - Try to obtain 1200 mg of total calcium per day from food and/or supplements daily value of calcium is 1000 mg when reading food labels (ie. 30% = 300 mg of calcium per serving of food item) calcium carbonate should be taken with food; calcium citrate does not need to be taken with food if you are taking calcium citrate, please double check the serving size and dose - Please do blood tests and a 24 hour urine calcium. - We will do xrays of your back - General osteoporosis information: For more information on osteoporosis/osteopenia or low bone density, please visit the following websites: NIH Osteoporosis and Related Bone Diseases National Resource Center: www.osteo.org NIH Osteoporosis Information: http://nihseniorhealth.gov/osteop orosis National Osteoporosis Foundation: www.nof.org. Exercise guidance can be found at: https://www.iofbonehealth.org/exe rcise-recommendations https://zn7nihv.andrew.nih.gov/exerc tzinz-tedm-xznlrdg-conditions-hea wl-rndocig-dfckqxhx-arthritis-and -osteoporosis/#osteoporosis (or Google NIH exercise and osteoporosis) Here is the estimated calcium content of a variety of foods: Produce Serving Size Estimated Calcium* Carmella greens, frozen 8 oz 360 mg Broccoli disha 8 oz 200 mg Kale, frozen 8 oz 180 mg Soy Beans, green, boiled 8 oz 175 mg Bok Aniket, cooked, boiled 8 oz 160 mg Figs, dried 2 figs 65 mg Broccoli, fresh, cooked 8 oz 60 mg Oranges 1 whole 55 mg Seafood Serving Size Estimated Calcium* Sardines, canned with bones 3 oz 325 mg Clements, canned with bones 3 oz 180 mg Shrimp, canned 3 oz 125 mg Dairy Serving Size Estimated Calcium* Ricotta, part-skim 4 oz 335 mg Yogurt, plain, low-fat 6 oz 310 mg Milk, skim, low-fat, whole 8 oz 300 mg Yogurt with fruit, low-fat 6 oz 260 mg Mozzarella, part-skim 1 oz 210 mg Cheddar 1 oz 205 mg Yogurt, Colombian 6 oz 200 mg Omani Cheese 1 oz 195 mg Feta Cheese 4 oz 140 mg Cottage Cheese, 2% 4 oz 105 mg Frozen yogurt, vanilla 8 oz 105 mg Ice Cream, vanilla 8 oz 85 mg Parmesan 1 tbsp 55 mg Fortified Food Serving Size Estimated Calcium* [place] milk, rice milk or soy milk, fortified 8 oz 300 mg Peterman juice and other fruit juices, fortified 8 oz 300 mg Tofu, prepared with calcium 4 oz 205 mg Waffle, frozen, fortified 2 pieces 200 mg Oatmeal, fortified 1 packet 140 mg Kazakh muffin, fortified 1 muffin 100 mg Cereal, fortified 8 oz 100-1,000 mg Other Serving Size Estimated Calcium* Mac & cheese, frozen 1 package 325 mg Pizza, cheese, frozen 1 serving 115 mg Pudding, chocolate, prepared with 2% milk 4 oz 160 mg Beans, baked, canned 4 oz 160 mg Patient information: Collection of a 24-hour urine specimen The following instructions will guide you in the proper collection of a 24-hour urine specimen. In some instances, you will be asked to collect two or three consecutive 24-hour urine samples. INSTRUCTIONS You should collect every drop of urine during each 24-hour period. It does not matter how much or little urine is passed each time, as long as every drop is collected. Begin the urine collection in the morning after you wake up, after you have emptied your bladder for the first time. Urinate (empty the bladder) for the first time and flush it down the toilet. Note the exact time (e.g., 6:15 AM). You will begin the urine collection at this time. Collect every drop of urine during the day and night in an empty collection bottle. Store the bottle at room temperature or in the refrigerator. If you need to have a bowel movement, any urine passed with the bowel movement should be collected. Try not to include feces with the urine collection. If feces do get mixed in, do not try to remove the feces from the urine collection bottle. Finish by collecting the first urine passed the next morning, adding it to the collection bottle. This should be within ten minutes before or after the time of the first morning void on the first day (which was flushed). In this example, you would try to void between 6:05 and 6:25 on the second day. If you need to urinate one hour before the final collection time, drink a full glass of water so that you can void again at the appropriate time. If you have to urinate 20 minutes before, try to hold the urine until the proper time. Please note the exact time of the final collection, even if it is not the same time as when collection began on day one. STORAGE -- The bottle(s) may be kept at room temperature for a day or two, but should be kept cool or refrigerated for longer periods of time. https://www.[employer]/ RECLAST: Zoledronic Acid Intravenous zoledronic acid (brand name Reclast ) was recently approved by the [place] FDA as the first once yearly therapy for post-menopausal osteoporosis. Zoledronic acid was previously FDA approved for Paget s disease and in oncology for management of hypercalcemia of malignancy and skeletal metastases (Zometa ; 4 mg dose). Osteoporosis approval was based in large part on data published from two large fracture studies. In the [facility] Pivotal Fracture Trial (HORIZON-PFT), [id number] postmenopausal women were randomized to 3 annual doses of 5 mg of zoledronic acid or placebo1. This trial found that over 3 years of follow up, postmenopausal women taking zoledronic acid had a significantly lower rate of new morphometric vertebral fractures (relative risk reduction, RRR = 70%), non-vertebral fractures (RRR = 25%) and hip fractures (RRR = 41%). While this study is not directly comparable with the pivotal studies of oral bisphosphonates, the magnitude and consistency of the fracture risk reduction equaled or exceeded that observed in prior bisphosphonate trials, despite a somewhat less robust increase in lumbar bone mineral density (6.7% over 3 years) compared with that seen in with alendronate (8.8 % versus placebo over 3 years in the phase III study by Yissel and colleagues)2. A second study, the [facility] recurrent fracture trial (HORIZON-RFT) examined the effects of once yearly zoledronic acid on recurrent fractures after an initial hip fracture in over 1000 women and men3. IV zoledronic acid was associated with a significantly reduced risk of new clinical vertebral fracture (RRR 46%) and any clinical fracture (RRR 35%). All cause mortality was also reduced by 28%, although the mechanism for the mortality benefit is not fully understood. While the population in this trial was a bit younger than that seen in the community traditionally, and the study was too small to look at age and sex affects, this was the first osteoporosis RCT to specifically examine a post-hip fracture population. Two shorter-term studies compared zoledronic acid with alendronate and examined the onset of action4 of each and the effects on BMD for patients that switched from alendronate to zoledronic acid5. Among new users, intravenous zoledronic acid more rapidly reduced biomarkers of bone resorption compared to new alendronate users and was non-inferior to alendronate in maintaining bone mineral density in patients switched from alendronate to zoledronic acid. Adverse Events In both HORIZON studies, zoledronic acid was generally well tolerated and serious adverse events did not differ significantly from placebo. Up to 18.8% of persons receiving zoledronic acid experienced infusion reactions4, consisting most commonly of influenza-like symptoms and fevers within three days of the infusion. Infusions were much less common with subsequent treatments. In the study of patients switched from alendronate to zoledronic acid, no patients experienced an infusion reaction, suggesting a waning of this effect with longer duration of bisphosphonate exposure. In the HORIZON Recurrent Fracture Trial, where patients were pre-treated with acetaminophen with study drug and as needed over 72 hours, only 7% of participants experienced infusion reactions. Hypocalcemia was seen infrequently (0.2% of subjects using a cutpoint of 7.5 mg/dl and 2.3 % using 8.3 mg/dl as the threshold) at the zoledronic acid dose used for osteoporosis and was seldom symptomatic or sustained when it occurred. It is recommended that all persons receiving zoledronic acid be vitamin D replete. In the HORIZON Recurrent Fracture Study, patients with 25 [place] vitamin D levels below 15 ng/ml or those without known vitamin D levels were given 50 to 125,000 IU of ergocalciferol or cholecalciferol 2 weeks prior to infusion to help ameliorate this potential concern. It is also recommended that renal function be considered prior to use of IV bisphosphonates and that they be avoided if creatinine clearances are < 35 ml/min. Osteonecrosis of the jaw is an uncommon adverse outcome that predominately has been reported in association with frequent intravenous bisphosphonate therapy in the setting of underlying malignancy (see ACR Hotline Bisphosphonate-Associated Osteonecrosis of the Jaw, January 2006), but it has been very rare when bisphosphonates are administered for osteoporosis (current estimated incidence of 1/100,000). Two cases of confirmed osteonecrosis of the jaw were reported in patients in the HORIZON Pivotal Fracture Trial, 1 on active treatment, 1 receiving placebo; none were seen in the other HORIZON trial, although a specific case finding method was not used. Patients should be informed of this risk, and pending dental work should be completed prior to treatment. Atrial fibrillation was detected in 2.5% of zoledronic acid patients (96 out of 3862) vs 1.9% (75 out of 3852; P < 0.001) of patients on placebo in the [facility]IZON Pivotal Fracture Trial. Most atrial fibrillation occurred more than a month after the infusion, suggesting that this outcome was not mediated by a transient flux in serum calcium levels shortly after the infusion. An ECG sub-study in 559 patients did not demonstrate an increased risk of atrial fibrillation. The second HORIZON study did not detect an increased risk of atrial fibrillation or cardiovascular events associated with zoledronic acid. This issue is currently under review at FDA, which has not recommended any change in prescribing related to it. (http://www.fda.gov/cder/drug/ear ly_comm/bisphosphonates.htm) There has been concern about fracture healing with bisphosphonate use. The absence of impairment in hip fracture healing when zoledronic acid was administered within 90 days of a hip fracture suggests it may be suitable for post-fracture patients. This concern requires more study. Practical Considerations The decision to use zoledronic acid for osteoporosis will depend in part on cost, (currently approximately $1,264 per infusion wholesale amaya for 5 mg Reclast and $700 for 4 mg Zometa) and insurance coverage, as well as on physician and patient preference. Adherence is a major problem with currently available oral anti-osteoporosis therapies, with less than 50% of those starting bisphosphonates continuing them for more than one year. A medication that is administered once a year could potentially improve adherence to therapy. A 15 minute IV infusion time will require that zoledronic be infused by health providers familiar with intravenous medication administration. Pre-medication with acetaminophen may help abrogate infusion related symptoms. While longer-term data is forthcoming, it is likely that IV zoledronic acid will assume a significant role in post-menopausal fracture management. THE BOTTOM LINE Zoledronic acid administered IV once yearly appears to be at least as effective as oral bisphosphonates in reducing the risk of new and recurrent vertebral and non-vertebral fractures in patients with osteoporosis Infusion reactions, including myalgias, may occur (particularly following the first dose) Vitamin D should be repleted before infusion, and patients should be monitored for hypocalcemia The drug should be avoided in patients with a creatinine clearance of <35 ml/min Patients who are not candidates for oral bisphosphonates, such as those with severe esophageal disease, inability to remain upright, or severe cognitive impairment may be particularly suitable patients for the drug Hotline Authors: Diomedes Berrios MD, MSc, Ryland Daniels MD, MPH, [facility] [employer] [facility] [employer] on Therapeutics of Musculoskeletal Disorders, Division of Clinical Immunology and Rheumatology, [employer] [facility] Hotline Editors: Ernie Aguilar MD; Osmin Nugent MD, MPH; Osmin Lazaro MD Disclosures: Dr. 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 Dr. Daniels has served as a pricing consultant or has received honoraria from [employer], [employer], [employer], and [employer]. 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 Jovanna Holt and Tejas have nothing to disclose. The ACR Hotline is provided by the ACR Communications and Marketing Committee as a service to members. This Hotline reflects the views of the author(s) and does not represent a position statement of the [employer] 1. Song DM, Vu PD, Uzair R, et al. Once-yearly zoledronic acid for treatment of postmenopausal osteoporosis. N Engl J Med. 2007;356(18):1809-22. 2. Sadiq UA, Francisco SR, Hermes J, et al. Effect of oral alendronate on bone mineral density and the incidence of fractures in postmenopausal osteoporosis. The Alendronate Phase III Osteoporosis Treatment Study Group. N Engl J Med. 1995;333(22):1437-43. 3. Wilfrido KW, Gigi CS, Jordan JS, et al. Zoledronic Acid and Clinical Fractures and Mortality after Hip Fracture. 2007:[id number]. 4. Yash K, Pam R, Raza A, Amelia E, Catherine W. A single zoledronic acid infusion reduces bone resorption markers more rapidly than weekly oral alendronate in postmenopausal women with low bone mineral density. Bone. 2007;40(5):1238-43. 5. Hilda M, Colton R, Chaim P, et al. Intravenous zoledronic acid 5 mg in the treatment of postmenopausal women with low bone density previously treated with alendronate. Bone. 2007;41(1):122-8. The following are corrections to the Zoledronic Acid Hotline: (noted in red): A second study, the HORIZON recurrent fracture trial (HORIZON-RFT) examined the effects of once yearly zoledronic acid on recurrent fractures after an initial hip fracture in over 2000 women and men3. Atrial fibrillation was detected in 1.3% of zoledronic acid patients (50 out of 3862) vs 0.5% (20 out of 3852; P < 0.001) of patients on placebo in the HORIZON Pivotal Fracture Trial. Costs quoted in the Hotline may not be current or consistent in all regions. The current Wholesale Acquisition Cost (WAC) for Reclast (5 mg) is now quoted as $1042. Prescribers are advised to contact their local carriers or distributors for up-to-date information on the acquisition cost of Reclast and Zometa. Osteonecrosis of the jaw is an uncommon adverse outcome that predominately has been reported in association with frequent intravenous bisphosphonate therapy in the setting of underlying malignancy (see ACR Hotline Bisphosphonate-Associated Osteonecrosis of the Jaw, January 2006), but it has been very rare when bisphosphonates are administered for osteoporosis (current estimated incidence of 1/100,000 patient-years of therapy). 2007 [employer] This information was printed from: http://www.rheumatology.org/publi cations/hotline/1007ZoledronicAci d.asp What is Prolia? (denosumab) Prolia is a prescription medicine used to: Treat osteoporosis (thinning and weakening of bone) in women after menopause ( change of life ) who: are at high risk for fracture (broken bone) cannot use another osteoporosis medicine or other osteoporosis medicines did not work well Increase bone mass in men with osteoporosis who are at high risk for fracture. Treat osteoporosis in men and women who will be taking corticosteroid medicines (such as prednisone) for at least 6 months and are at high risk for fracture. Treat bone loss in men who are at high risk for fracture receiving certain treatments for prostate cancer that has not spread to other parts of the body. Treat bone loss in women who are at high risk for fracture receiving certain treatments for breast cancer that has not spread to other parts of the body. It is not known if Prolia is safe and effective in children. What is the most important information I should know about Prolia? If you receive Prolia, you should not receive XGEVA . Prolia contains the same medicine as Xgeva (denosumab). Prolia can cause serious side effects including: Serious allergic reactions. Serious allergic reactions have happened in people who take Prolia. Call your doctor or go to your nearest emergency room right away if you have any symptoms of a serious allergic reaction. Symptoms of a serious allergic reaction may include: low blood pressure (hypotension) trouble breathing throat tightness swelling of your face, lips, or tongue rash itching hives Low calcium levels in your blood (hypocalcemia). Prolia may lower the calcium levels in your blood. If you have low blood calcium before you start receiving Prolia, it may get worse during treatment. Your low blood calcium must be treated before you receive Prolia. Most people with low blood calcium levels do not have symptoms, but some people may have symptoms. Call your doctor right away if you have symptoms of low blood calcium such as: spasms, twitches, or cramps in your muscles numbness or tingling in your fingers, toes, or around your mouth Your doctor may prescribe calcium and vitamin D to help prevent low calcium levels in your blood while you take Prolia. Take calcium and vitamin D as your doctor tells you to. Severe jaw bone problems (osteonecrosis). Severe jaw bone problems may happen when you take Prolia. Your doctor should examine your mouth before you start Prolia. Your doctor may tell you to see your dentist before you start Prolia. It is important for you to practice good mouth care during treatment with Prolia. Ask your doctor or dentist about good mouth care if you have any questions. Unusual thigh bone fractures. Some people have developed unusual fractures in their thigh bone. Symptoms of a fracture include new or unusual pain in your hip, groin, or thigh. Increased risk of broken bones, including broken bones in the spine, after stopping Prolia. After your treatment with Prolia is stopped, your risk for breaking bones, including bones in your spine, is increased. Your risk for having more than 1 broken bone in your spine is increased if you have already had a broken bone in your spine. Do not stop taking Prolia without first talking with your doctor. If your Prolia treatment is stopped, talk to your doctor about other medicine that you can take. Serious infections. Serious infections in your skin, lower stomach area (abdomen), bladder, or ear may happen if you take Prolia. Inflammation of the inner lining of the heart (endocarditis) due to an infection also may happen more often in people who take Prolia. You may need to go to the hospital for treatment if you develop an infection. Prolia is a medicine that may affect the ability of your body to fight infections. People who have a weakened immune system or take medicines that affect the immune system may have an increased risk for developing serious infections. Call your doctor right away if you have any of the following symptoms of infection: fever or chills skin that looks red or swollen and is hot or tender to touch fever, shortness of breath, cough that will not go away severe abdominal pain frequent or urgent need to urinate or burning feeling when you urinate Skin problems. Skin problems such as inflammation of your skin (dermatitis), rash, and eczema may happen if you take Prolia. Call your doctor if you have any of the following symptoms of skin problems that do not go away or get worse: redness itching small bumps or patches (rash) your skin is dry or feels like leather blisters that ooze or become crusty skin peeling Bone, joint, or muscle pain. Some people who take Prolia develop severe bone, joint, or muscle pain. Call your doctor right away if you have any of these side effects. DO NOT TAKE PROLIA IF YOU: have been told by your doctor that your blood calcium level is too low. are or plan to become . are allergic to denosumab or any of the ingredients in Prolia Before taking Prolia, tell your doctor about all of your medical conditions, including if you: are taking a medicine called Xgeva (denosumab). Xgeva contains the same medicine as Prolia. have low blood calcium. cannot take daily calcium and vitamin D. had parathyroid or thyroid surgery (glands located in your neck). have been told you have trouble absorbing minerals in your stomach or intestines (malabsorption syndrome). have kidney problems or are on kidney dialysis. are taking medicine that can lower your blood calcium levels. plan to have dental surgery or teeth removed. are or plan to become . Prolia may harm your unborn baby. Females who are able to become : Your healthcare provider should do a test before you start treatment with Prolia. You should use an effective method of control (contraception) during treatment with Prolia and for at least 5 months after your last dose of Prolia. Tell your doctor right away if you become while taking Prolia. are or plan to breastfeed. It is not known if Prolia passes into your breast milk. You and your doctor should decide if you will take Prolia or breastfeed. You should not do both. Tell your doctor about all the medicines you take, including prescription and gipu-jup-zaazsek medicines, vitamins, and herbal supplements. Know the medicines you take. Keep a list of medicines with you to show to your doctor or pharmacist when you get a new medicine. How will I receive Prolia? Prolia is an injection that will be given to you by a healthcare professional. Prolia is injected under your skin (subcutaneous). You will receive Prolia 1 time every 6 months. You should take calcium and vitamin D as your doctor tells you to while you receive Prolia. If you miss a dose of Prolia, you should receive your injection as soon as you can. Take good care of your teeth and gums while you receive Prolia. [place] and floss your teeth regularly. Tell your dentist that you are receiving Prolia before you have dental work. What are the possible side effects of Prolia? See What is the most important information I should know about Prolia? It is not known if the use of Prolia over a long period of time may cause slow healing of broken bones. The most common side effects of Prolia in women who are being treated for osteoporosis after menopause are: back pain pain in your arms and legs high cholesterol muscle pain bladder infection The most common side effects of Prolia in men with osteoporosis are: back pain joint pain common cold (runny nose or sore throat) The most common side effects of Prolia in patients with glucocorticoid-induced osteoporosis are: back pain high blood pressure lung infection (bronchitis) headache The most common side effects of Prolia in patients receiving certain treatments for prostate or breast cancer are: joint pain back pain pain in your arms and legs muscle pain Tell your doctor if you have any side effect that bothers you or that does not go away. These are not all the possible side effects of Prolia. What are the ingredients in Prolia? Active ingredient: denosumab Inactive ingredients: sorbitol, acetate, polysorbate 20, Water for Injection (NURSING HOME), and sodium hydroxide Teriparatide Pen Injector Forteo Uses For bone strength. Instructions This medicine will be given to you at home. This medicine is used by injecting it into the skin. Please ask your doctor, nurse or pharmacist for the correct places on your body where this medicine can be injected. Carefully follow the instructions for preparing this medicine before injection. Read and make sure you understand the instructions for measuring your dose and using the syringe before using this medicine. Always inspect the medicine before using. The liquid should be clear and colorless. Do not use the medicine if it contains any particles or if it has changed color. Check the medicine before each use. If the liquid medicine has any particles in it, appears discolored, or if the vial appears damaged, do not use it. Keep this medicine in the refrigerator. Do not freeze. If the medicine becomes frozen, you will need to throw it away. Protect medicine from light. Never use any medicine that has . Please ask your doctor, nurse, or pharmacist how to discard unused medicines safely. Ask your doctor, nurse or pharmacist to show you how to use this medicine correctly. You or a family member can be trained to give this medicine at home. Change the location of the injection each time. Choose a location at least 1 inch from the last injection. It is important that you keep taking each dose of this medicine on time even if you are feeling well. If you forget to take a dose on time, take it as soon as you remember. If it is almost time for the next dose, do not take the missed dose. Return to your normal dosing schedule. Do not take 2 doses of this medicine at one time. Please tell your doctor and pharmacist about all the medicines you take. Include both prescription and fvqw-zfh-domdwlq medicines. Also tell them about any vitamins, herbal medicines, or anything else you take for your health. You may need vitamin and mineral supplements while on this medicine. Please speak with your doctor or pharmacist. It is very important that you follow your doctor's instructions for all blood tests. It is very important that you keep all appointments for medical exams and tests while on this medicine. Do not take the medicine more than once during 24 hours. Cautions Tell your doctor and pharmacist if you ever had an allergic reaction to a medicine. Symptoms of an allergic reaction can include trouble breathing, skin rash, itching, swelling, or severe dizziness. This medicine is associated with a rare but very serious medical condition. Please speak with your doctor about symptoms you should look out for while on this medicine. Notify your doctor immediately if you develop those symptoms. Some patients taking this medicine have experienced serious side effects. Please speak with your doctor to understand the risks and benefits associated with this medicine. Do not use the medication any more than instructed. This medicine may cause dizziness or fainting, especially after exercising or in hot weather. Be very careful when standing or sitting up quickly. Your ability to stay alert or to react quickly may be impaired by this medicine. Do not drive or operate machinery until you know how this medicine will affect you. Please check with your doctor before drinking alcohol while on this medicine. Call the doctor if there are any signs of confusion or unusual changes in behavior. Tell the doctor or pharmacist if you are , planning to be , or . Do not breastfeed while on this medicine. Ask your pharmacist if this medicine can interact with any of your other medicines. Be sure to tell them about all the medicines you take. Please tell all your doctors and dentists that you are on this medicine before they provide care. Do not start or stop any other medicines without first speaking to your doctor or pharmacist. Used needles and syringes should be thrown away properly in a medical waste container. Ask your doctor or pharmacist if you need help. Do not share this medicine with anyone who has not been prescribed this medicine. This medicine can cause serious side effects in some patients. Important information from the [place].S. Food and Drug Administration (FDA) is available from your pharmacist. Please review it carefully with your pharmacist to understand the risks associated with this medicine. Side Effects The following is a list of some common side effects from this medicine. Please speak with your doctor about what you should do if you experience these or other side effects. dizziness low blood pressure reaction at the area of the injection (pain, redness, swelling) pain in the joints muscle cramps nausea pain near injection site rapid heartbeat Call your doctor or get medical help right away if you notice any of these more serious side effects: severe or persistent bone, joint or jaw pain confusion constipation fainting muscle weakness unusual or unexplained tiredness or weakness vomiting A few people may have an allergic reaction to this medicine. Symptoms can include difficulty breathing, skin rash, itching, swelling, or severe dizziness. If you notice any of these symptoms, seek medical help quickly. Extra Please speak with your doctor, nurse, or pharmacist if you have any questions about this medicine. documented in this encounter [facility] 05-27-2022 History of Presen t illness Narrative ENDOCRINOLOGY CLINIC NOTE Reason for visit Greyson Rojas is a pleasant 52 year old female with history of GERD and breast cancer seen in consultation for evaluation and discussion of treatment options for low bone density. Consult has been requested by Dr. Gallo Sanches HPI Ms. Rojas was diagnosed with breast cancer and underwent b/l mastectomy in 2018, pathology showed lobular carcinoma with no mets. She was started on Tamoxifen 09/2017, and anastrozole in 10/2020 but could not tolerate due to joint pain. The plan is to take Tamoxifen for a total of 5 years (will finish in 09/2022) Of note, she is a carrier for H63D for hemochromatosis. Most recent DXA 04/2022 (compared to 2017 because 2019 machine was different): L spine BMD 0.690, T score -3.2 (11.4% decrease) L TH BMD 0.813, T score -1.1 (1.9% decrease) L FN BMD 0.602, T score -2.2 ( 2.9% decrease) Fracture history: Shoulder fracture 6 years ago during running and a fall Treatment history (including any side effects/contraindications): None Family history of metabolic bone disease or fractures: Mother has osteoporosis and had shoulder fracture Father had hip fracture Risk factors: > Menstrual history/male hypogonadism: - last period: early 50s - periods were regular > Medication exposures/pertinent medical or 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: (Glucocorticoid, AED use, relevant medications, hyperthyroidism, kidney stone/disease, eating disorder, malabsorption, immobility, smoking, excessive alcohol use etc) Anastrozole exposure. No smoking or excessive alcohol intake Calcium/Vit D intake: Dietary calcium: Supplements: takes calcium unknown strength Vitamin D intake: takes vitamin D with calcium in addition to separate vitamin D Weight bearing exercise: She does yoga and lift weights, and cardio Dental Procedure: None Radiation Exposure: None Height Loss: Possibly half an inch Past Medical History PAST MEDICAL HISTORY Diagnosis Date Anemia, unspecified iron deficiency Breast cancer (HCC) 08/2017 Breast mass 06/2017 right breast Diffuse cystic mastopathy Helicobacter pylori infection Hiatal hernia Major depressive disorder, single episode, unspecified 1999 depressed year after 3rd child: treated for 1 year with Zoloft Meniere disease Dr. Marie ENT Panic disorder without agoraphobia periodic symptoms Past Surgical History PAST SURGICAL HISTORY Procedure Laterality Date BREAST RECONSTRUCTION implants removed and replaced BX BREAST W/DEVICE 1ST LESION ULTRASOUND GUID Right 06/12/2017 3 nodules; 5cm, 3cm, 3cm COLONOSCOPY FLX DX W/COLLJ SPEC WHEN PFRMD 03/01/2018 Colonoscopy EGD N/A 11/05/2021 FOOT SURGERY HX Left 1982 Arch reshaping HIP SURGERY HX 01/08/2022 torn labrum, reshaped femoral head LAPAROSCOPIC SALPING/OOPHORECTOMY Right 02/24/2019 Dr. Jasmin Sosa MASTECTOMY, SIMPLE, COMPLETE Bilateral 08/18/2017 Dr. Johnson (reconstruction), Dr. 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 TOTAL ABD HYSTERECTOMY+BLAD REPR N/A 2020 left ovary removed; Dr. Sosa-[facility]- total hysterectomy with rectocele and bladder sling Medications Current Outpatient Medications Medication Sig famotidine (PEPCID) 20 mg tablet Take 1 tablet by mouth at bedtime as needed. COMPRESSION SLEEVE as directed. Breast cancer. 20-30 mmHg tamoxifen (NOLVADEX) 20 mg tablet Take 1 tablet (20 mg) by mouth once daily. omeprazole (PRILOSEC) 20 mg capsule Take 1 capsule by mouth once daily. Lactobacillus acidophilus (PROBIOTIC ORAL) Take by mouth. Ascorbic Acid 500 mg cpER Take by mouth. cholecalciferol (VITAMIN D3) 1,000 unit tab tablet Take by mouth. docusate sodium (COLACE) 100 mg capsule Take by mouth. turmeric-turmeric root extract 450-50 mg cap Take by mouth. venlafaxine ER (EFFEXOR XR) 37.5 mg 24 hr capsule TAKE 1 CAPSULE ONCE DAILY mecobalamin (B12 ACTIVE ORAL) Take 1 tablet by mouth once daily. CALCIUM CARBONATE/VITAMIN D3 (VITAMIN D-3 ORAL) Take by mouth twice daily. No current facility-administered medications for this visit. The medication list in the chart was reviewed. Allergies ALLERGIES Allergen Reactions Penicillins Hives Other reaction(s): hives all over body The allergy list in the chart was reviewed. Family History FAMILY HISTORY Problem Relation Age of Onset Cancer Mother melanoma Hypertension Mother Lipids Mother Breast Cancer Mother 63 Diabetes Mother Arthritis Father Lipids Father High Triglycerides Heart Father ICD/pacer, CHF/s/p VT Diabetes Father Colon Cancer Paternal Grandmother Cancer Paternal Grandfather HCC-EtOH abuse Heart Maternal Uncle enlarged heart: cardiomyopathy Hypertension Brother Diabetes Sister Lipids Sister Ischemic Heart Disease Maternal Uncle Breast Cancer Other 49 maternal cousin (mothers-brothers child) Social History Social History Tobacco Use Smoking status: Never Smokeless tobacco: Never Vaping Use Vaping Use: Never used Substance Use Topics Alcohol use: No Drug use: No Review of Systems: Answers submitted by the patient for this visit: Endocrine Review of Systems (Submitted on 05/26/2022) Fatigue: No Night Sweats: Yes Recent Unintentional Weight Change: Yes Skin Color Changes: No Post-Nasal Drip: Yes Thyroid Pain (lower neck): No Trouble Swallowing: Yes Vision Disturbance: No Chest Pain: No Leg Swelling: No Blood Clots?: No Leg Pain while walking?: No Difficulty Breathing?: No Heartburn: Yes Nausea: Yes Vomiting?: No Diarrhea: No Constipation: Yes Abdominal Pain: Yes Bone Pain?: Yes Muscle Aches: Yes Muscle Weakness: Yes Joint Pain or Stiffness: Yes Headaches: Yes Dizziness: No Numbness?: No Urgency to Urinate?: Yes Increased Urination?: Yes Slow or Small Urine Stream?: No Are your menstrual cycles regular?: No Are your menstrual cycles irregular?: No Have your menstrual cycles stopped?: Yes Flushing?: Yes Hot Flashes?: Yes Increased Thirst: No Change in Body Hair?: Yes Cold Intolerance: No Heat Intolerance?: Yes Physical Exam BP 117/81 Pulse 72 Resp 16 Ht 161.3 cm (5' 3.5) Wt 57.7 kg (127 lb 3.2 oz) LMP 06/08/2020 (Approximate) SpO2 99% BMI 22.18 kg/m Body mass index is 22.18 kg/m . Last 3 Encounter Ht Readings: Date: Ht: 05/16/2022 161.3 cm (5' 3.5) 04/23/2022 161.3 cm (5' 3.5) 04/03/2022 161.9 cm (5' 3.75) General Appearance: Alert, cooperative, not in distress Head: Normocephalic, atraumatic Neck: Supple Cardiovascular: Regular rate and rhythm, no murmur, rub, or gallop Respiratory: Clear to auscultation bilaterally Musculoskeletal: There is tenderness in the mid and lower back Extremities: No edema Skin: no rash Neurologic: AAOx 3 Psychiatric: appropriate mood Imaging DXA scans as above Recent Laboratory Data: Reviewed and mentioned as above Assessment and recommendations Greyson Rojas is a pleasant 52 year old female seen in consultation for evaluation and discussion of treatment options for low bone density. Low bone density Most recent DXA from 04/2022 shows lowest T score -3.2 at the spine with 11% decline compared to 2018. She has not had fragility fractures. Risk factors for low bone density include age, ethnicity, lean body habitus, family history, postmenopausal state and tamoxifen exposure in the premenopausal period. We will first complete secondary evaluation for other causes of low bone density. Given the tenderness on the exam today, we will do thoracolumbar x-rays to screen for vertebral fractures It was discussed with the patient that pharmacologic therapy is appropriate based on her bone density and risk factors for fracture. Risks, benefits, potential side effects, and fracture data for bisphosphonates, denosumab, teriparatide/abaloparatide and romosozumab were reviewed and information was provided in the after visit summary. The best sequence would be to start with anabolic agent followed by an antiresorptive agent, especially that her levels BMD is at the spine level. We will discuss the options again after the work-up above She was advised to achieve a total of 1200 mg/day of calcium intake, and will take vitamin D 2000 units once a day Dr. Sanches is thanked for involving me in the care of this patient I spent 60 minutes in the visit, with more than 50% of the total [id number] time of the visit in counseling / coordination of care. My final recommendations will be communicated back to the requesting physician by way of shared Medical record or letter to requesting physician via [place] mail. This note was created using [employer] dictation software. You may find errors that were missed during proofreading. They are purely unintentional and if there are any concerns regarding this dictation, please do not hesitate to call the dictating provider for clarification. Esme Wisdom MD documented in this encounter [facility] 05-22-2022 Miscellaneous Notes See pt message and advise. Susan Scott Ma documented in this encounter [facility] 05-21-2022 Note HNO ID: [id number] Author: HOLLY Armenta Service: Radiology Author Type: Technologist Type: Progress Notes Filed: 05/21/2022 1:51 PM Note Text: Radiology Service Progress Note DATE OF SERVICE: May 21, 2022 TIME: 1:49 PM PATIENT IDENTITY VERIFICATION COMPLETED USING TWO (2) STANDARD IDENTIFIERS: Name and Date of confirmed by patient verbally and Name and Date of confirmed by identification band. FALL SCREENING: Has the patient had 2 falls in the last year or 1 fall with injury or currently using an Ambulatory Assistive Device (Walker, Cane, Wheelchair, Crutches, etc.)? No PATIENT GENDER DATA: Female. status: : No status: NO. PATIENT RELEVANT IMPLANT DATA REVIEWED: Yes ALLERGIES: Reviewed and unchanged CONTRAST ALLERGY: NO. EXAM: MRI - CONTRAST TYPE: GROUP II PERIPHERAL IV DATA: Ambulatory: A peripheral IV was started in the Left antecubital site with a Angio cath: 22 gauge. RADIOLOGY DEPARTMENT: MR; Exam(s) Completed: Chest: Breast SIGNATURE: HOLLY Armenta PATIENT NAME: Greyson Rojas DATE: May 21, 2022 TIME: 1:49 PM [facility] 05-21-2022 History of Presen t illness Narrative Radiology Service Progress Note DATE OF SERVICE: May 21, 2022 TIME: 1:49 PM PATIENT IDENTITY VERIFICATION COMPLETED USING TWO (2) STANDARD IDENTIFIERS: Name and Date of confirmed by patient verbally and Name and Date of confirmed by identification band. FALL SCREENING: Has the patient had 2 falls in the last year or 1 fall with injury or currently using an Ambulatory Assistive Device (Walker, Cane, Wheelchair, Crutches, etc.)? No PATIENT GENDER DATA: Female. status: : No status: NO. PATIENT RELEVANT IMPLANT DATA REVIEWED: Yes ALLERGIES: Reviewed and unchanged CONTRAST ALLERGY: NO. EXAM: MRI - CONTRAST TYPE: GROUP II PERIPHERAL IV DATA: Ambulatory: A peripheral IV was started in the Left antecubital site with a Angio cath: 22 gauge. RADIOLOGY DEPARTMENT: MR; Exam(s) Completed: Chest: Breast SIGNATURE: HOLLY Armenta PATIENT NAME: Greyson Rojas DATE: May 21, 2022 TIME: 1:49 PM documented in this encounter [facility] 10-14-2022 Instructions Paige Sylvester APRN.CNP - 05/16/2022 3:46 PM EDT Continue omeprazole 20mg in the morning - and pepcid at bedtime Avoid NSAIDs (such as Advil, Ibuprofen, Excedrin, Mobic), tobacco, alcohol, carbonated beverages, caffeine, chocolate, tomato based sauces, spicy/fatty foods, and peppermint Avoid eating large meals. Avoid eating less than 3 hours before bed. Weight loss. Elevate the head of the bed 6 inches, or at least invest in a wedge pillow. - if symptoms worsen again make a follow up - documented in this encounter [facility] 05-16-2022 History of Presen t illness Narrative CHIEF COMPLAINT: Patient presents with: GERD: EGD 11/05/21 HPI Greyson Rojas is a 52 year old female here today for follow up GERD EGD 11/05/2021 positive for H pylori completed treated confirmed eradication on She reports she was having issues with coughing at night, scratchy throat and choking on solids at times with some morning nausea. We started on omeprazole 20mg at bedtime - She reports over the summer she had hip replacement and breast reconstruction and was on pain medication - she thinks this triggered her cough again. She reports PCP added pepcid at night. Now she is taking omeprazole 20mg and pepcid at bedtime. She reports if she takes a pepcid on a empty stomach she will get a BUITRAGO. She reports the cough has improved with the combo ppi and H2. She reports if she goes a long time without eating she will develop stomach ache. She also noticed diary will cause cough. She reports she recently diagnosed with osteoporosis in the lumbar spine and osteopenia in the left hip femoral neck - discussed with patient since omeprazole 20 mg with pepcid at bedtime is managing her symptoms well will continue therapy - I do not want to increase PPI at this time due to the osteoporosis Recently she under care of pulmonology to be worked up for asthma - Current Outpatient Medications Medication Sig famotidine (PEPCID) 20 mg tablet Take 1 tablet by mouth at bedtime as needed. COMPRESSION SLEEVE as directed. Breast cancer. 20-30 mmHg tamoxifen (NOLVADEX) 20 mg tablet Take 1 tablet (20 mg) by mouth once daily. omeprazole (PRILOSEC) 20 mg capsule Take 1 capsule by mouth once daily. Lactobacillus acidophilus (PROBIOTIC ORAL) Take by mouth. Ascorbic Acid 500 mg cpER Take by mouth. cholecalciferol (VITAMIN D3) 1,000 unit tab tablet Take by mouth. docusate sodium (COLACE) 100 mg capsule Take by mouth. turmeric-turmeric root extract 450-50 mg cap Take by mouth. venlafaxine ER (EFFEXOR XR) 37.5 mg 24 hr capsule TAKE 1 CAPSULE ONCE DAILY mecobalamin (B12 ACTIVE ORAL) Take 1 tablet by mouth once daily. CALCIUM CARBONATE/VITAMIN D3 (VITAMIN D-3 ORAL) Take by mouth twice daily. No current facility-administered medications for this visit. ALLERGIES Allergen Reactions Penicillins Hives Other reaction(s): hives all over body Social History Tobacco Use Smoking status: Never Smokeless tobacco: Never Vaping Use Vaping Use: Never used Substance Use Topics Alcohol use: No Drug use: No PAST MEDICAL HISTORY Diagnosis Date Anemia, unspecified iron deficiency Breast cancer (HCC) 08/2017 Breast mass 06/2017 right breast Diffuse cystic mastopathy Helicobacter pylori infection Hiatal hernia Major depressive disorder, single episode, unspecified 1999 depressed year after 3rd child: treated for 1 year with Zoloft Meniere disease Dr. Marie ENT Panic disorder without agoraphobia periodic symptoms PAST SURGICAL HISTORY Procedure Laterality Date BREAST RECONSTRUCTION implants removed and replaced BX BREAST W/DEVICE 1ST LESION ULTRASOUND GUID Right 06/12/2017 3 nodules; 5cm, 3cm, 3cm COLONOSCOPY FLX DX W/COLLJ SPEC WHEN PFRMD 03/01/2018 Colonoscopy EGD N/A 11/05/2021 FOOT SURGERY HX Left 1981 Arch reshaping HIP SURGERY HX 01/08/2022 torn labrum, reshaped femoral head LAPAROSCOPIC SALPING/OOPHORECTOMY Right 02/24/2019 Dr. Jasmin Sosa MASTECTOMY, SIMPLE, COMPLETE Bilateral 08/18/2017 Dr. Johnson (reconstruction), Dr. 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 TOTAL ABD HYSTERECTOMY+BLAD REPR N/A 2020 left ovary removed; Dr. Sosa-[facility]- total hysterectomy with rectocele and bladder sling FAMILY HISTORY Problem Relation Age of Onset Cancer Mother melanoma Hypertension Mother Lipids Mother Breast Cancer Mother 63 Diabetes Mother Arthritis Father Lipids Father High Triglycerides Heart Father ICD/pacer, CHF/s/p VT Diabetes Father Colon Cancer Paternal Grandmother Cancer Paternal Grandfather HCC-EtOH abuse Heart Maternal Uncle enlarged heart: cardiomyopathy Hypertension Brother Diabetes Sister Lipids Sister Ischemic Heart Disease Maternal Uncle Breast Cancer Other 49 maternal cousin (mothers-brothers child) REVIEW OF SYSTEMS Review of Systems HENT: Positive for voice change. Respiratory: Positive for cough and shortness of breath. Gastrointestinal: Positive for abdominal pain and nausea. PHYSICAL EXAM BP 120/80 Pulse 66 Ht 5' 3.5 (1.61m) Wt 128 lb (58.1kg) LMP 06/08/2020 BMI 22.32 kg/(m^2). Physical Exam Constitutional: Appearance: Normal appearance. She is normal weight. HENT: Head: Normocephalic and atraumatic. Eyes: Extraocular Movements: Extraocular movements intact. Pupils: Pupils are equal, round, and reactive to light. Cardiovascular: Rate and Rhythm: Normal rate and regular rhythm. Pulses: Normal pulses. Heart sounds: Normal heart sounds. Pulmonary: Effort: Pulmonary effort is normal. Breath sounds: Normal breath sounds. Abdominal: General: Abdomen is flat. Bowel sounds are normal. Palpations: Abdomen is soft. Musculoskeletal: General: Normal range of motion. Cervical back: Normal range of motion and neck supple. Skin: General: Skin is warm and dry. Neurological: General: No focal deficit present. Mental Status: She is alert and oriented to person, place, and time. Psychiatric: Mood and Affect: Mood normal. Behavior: Behavior normal. Assessment/Plan (R05.3) Chronic cough (primary encounter diagnosis) 1. Chronic cough She reports she recently diagnosed with osteoporosis in the lumbar spine and osteopenia in the left hip femoral neck - discussed with patient since omeprazole 20 mg with pepcid at bedtime is managing her symptoms well will continue therapy - I do not want to increase PPI at this time due to the osteoporosis Follow up in office 3 months/PRN. Recommended to please call office/go to ER if fever, chills, chest pain, SOB, diarrhea, nausea, emesis, worsening abdominal pain, dehydration occurs I spent a total of 30 minutes on the date of the service which included preparing to see the patient, [id number] patient care, completing clinical documentation, obtaining and/or reviewing separately obtained history, performing a medically appropriate examination, counseling and educating the patient/family/caregiver, ordering medications, tests, or procedures, communicating with other HCPs (not separately reported), independently interpreting results (not separately reported), communicating results to the patient/family/caregiver, and care coordination (not separately reported). Paige Sylvester APRN.CNP May 16, 2022 4:12 PM documented in this encounter [facility] 05-15-2022 History of Presen t illness Narrative Episode Visit Count: 12 Therapist That Will Accept/Oversee The Plan Of Care: Salas Sherman Start of Care Date: 01/10/22 Onset Date: 01/09/22 REHABILITATION AND SPORTS THERAPY PHYSICAL THERAPY DISCONTINUANCE OF CARE PLAN OF CARE UPDATE: Assessment: Greyson Rojas is discontinued from Physical Therapy services due to goal achievement. and maximal benefit.. Patient was seen for 12 visits from Start of Care Date: 01/10/22 to 05/15/2022 and treatment included: Therapeutic exercise, Neuromuscular re-education, Self-group home management, and Gait training. Goals updated on 05/15/2022. Goals for Episode of Care: created on 01/10/22 through 06/12/22 [place] in home exercise program. Met Patient will decrease pain rating by 2 points to meet minimal clinical important difference for numeric pain rating scale. Met Patient will increase active ROM of R hip to = L to allow pt to to improve performance of ADLs and to improve gait mechanics / gait pattern. Met Patient will demonstrate increase in R hip strength to 5/5 during manual muscle testing in order to improve function for basic self-care tasks, home management tasks, leisure / recreation skills, light functional tasks, moderate to heavy functional tasks, prior functional tasks and work Tasks. Met Perform ADLs and self care tasks with decreased report of symptoms/pain in 4-6 weeks. Met Perform walking without pain. Met Normal gait. Met Reciprocal stair negotiation. Met Patient Goals: get back to PLOF with recreational activities SUBJECTIVE: Patient Reason for Visit: Pt continues to do great today, even advancing to the harder yoga class with only some workout/muscular soreness. Pt is compliant and confident with her HEP, and confident in her ability to continue on her own.. Pain: Pain Pain Level: 0 Pain Location: Hip - Right Frequency: Continuous PROMIS Scales Higher is Better 10/13/2021 11/17/2021 01/08/2022 Phys Func - Score 49 (within normal limits) 47 (within normal limits) 29 (severe dysfunction) Phys Func - Percentile 46 % 38 % 2 % Social Roles - Score 52 (within normal limits) 50 (within normal limits) 52 (within normal limits) Social Role - Percentile 58 % 50 % 58 % GH Physical - Score 44.9 (Good) - 42.3 (Good) GH Physical - Percentile 31 % - 22 % GH Mental - Score 48.3 (Very Good) - 67.6 (Excellent) GH Mental - Percentile 43 % - 96 % Self-Eff Symptom - Score 50 (Average) 48 (Average) 50 (Average) Self-Eff Symptom - Percentile 50 % 42 % 50 % T-scores: mean of general population = 50. 5 points is clinically meaningfully difference Percentiles provide an indication of how the patient's score ranks in relation to the general population. Higher percentile rankings indicate better function/quality of life. 50th percentile is the average of the general population and indicates half of respondents had a worse score. Lower is Better 10/13/2021 11/17/2021 01/08/2022 Fatigue - Score 51 (within normal limits) 45 (within normal limits) 45 (within normal limits) Fatigue - Percentile 46 % 69 % 69 % T-scores: mean of general population = 50. 5 points is clinically meaningfully difference Percentiles provide an indication of how the patient's score ranks in relation to the general population. Higher percentile rankings indicate better function/quality of life. 50th percentile is the average of the general population and indicates half of respondents had a worse score. OBJECTIVE MEASURES WITH LEVEL OF FUNCTION: LE PROM R Hip Extension: 20 Degrees R Hip Flexion: 135 Degrees R Hip ABduction: 65 Degrees R Hip ADduction: 30 Degrees LE Strength R LE Strength: 5/5 TREATMENT: Therapeutic Exercise: 1: Recumbent bike setting 6 x6 min for hip ROM and endurance (reviewed pt goals for PT) 2: reviewed HEP 3: Objective measures obtained Skilled Intervention: Patient was educated in proper exercise technique and purpose for exercises. Patient education as noted. Billing Therapeutic Exercise Treatment Minutes: 15 Total Treatment Time Minutes (timed/untimed): 15 Salas Sherman PT documented in this encounter [facility] 05-06-2022 Miscellaneous Notes MRI BREAST TRIAGE FORM FAX: [id number] DATE: May 06, 2022 TIME: 11:42 AM TRACKING #. 0000 Greyson Rojas, 52 year old Home phone: [phone] (home) BREAST TO BE SCANNED: BILATERAL DIAGNOSIS or REASON FOR EXAM: Encounter for breast cancer screening using non-mammogram modality [Z12.39] History of breast cancer [Z85.3] PREVIOUS EXAMS: US BREAST LTD ORDERING PHYSICIAN: Gallo Sanches DO PHONE/PAGER: [phone] DOCTOR'S SUPERVISOR REAL ESTATE OFFICE or NURSE: Rossi Martinez APRN.CUSTOMER SALES SPECIALIST =MRI BREAST APPROVED= APPROVED TECHNIQUE: Breast CA COMMENTS: History of breast ca REVIEWING RADIOLOGIST: Rocío Lin MD DATE: May 06, 2022 TIME: 12:12 PM documented in this encounter [facility] 05-06-2022 Miscellaneous Notes Called PT LVM to call back and schedule. Yoli PSS New MRI breast orders are placed in her chart. I am not sure if this will help with insurance authorization. Please help clarify if this is now covered for her to complete Gallo Sancehs DO Patient was notified she needed a mammogram in January. Through much communication, Izabella ordered an MRI of the breast for the patient. However, patient was told by scheduling this has to be ordered by PCP or oncologist or surgeon. She decided it was too much trouble to go through the hoops but is now calling back to say she IS interested in having a breast MRI if it will show more than just the implants ( ie. Chest wall and surrounding tissue) OR is there an other more appropriate test that she should have? Greyson Gallegos RN Images from the original note were not included. Greyson Rojas [facility] My Chart Rx Pool Hey I was told by scheduling they can t schedule my breast mri test without your request or my oncologist or breast surgeon. Can you help me with this matter? Clementina documented in this encounter [facility] 05-05-2022 Miscellaneous Notes Please see pt reply Eula Chaparro Ma 1st attempt left message to return call to schedule breast mri so prior auth team can get approval from insurance. Please assist in scheduling MRI. Thank you, Izabella Sanchez APRN.FAHEEM Please see pt message and advise. Eula Chaparro Ma Had appointment on 04/03/22 with general surgery as follow-up from breast surgery. Please see if MRI for breast cancer screening was discussed? Thank you, Izabella Sanchez APRN.FAHEEM Lab work ordered. I will leave the possible breast MRI for Dr. Sanches to review. Rossi Martinez APRN.FAHEEM See pt's MyChart message below. Pt states pcp discussed ordering more labs, including a cholesterol panel (last one was 07/23). Please advise. July Rubio LPN See pt reply Please see pt message. Pt advised to schedule [place]inton & bone density test that are ordered. Lab work last completed 12/23/2021. Any labs that need added & completed? Eula Chaparro Ma documented in this encounter [facility] 05-03-2022 Miscellaneous Notes See telephone note. documented in this encounter [facility] 05-02-2022 Miscellaneous Notes Message changed to TE per TARIK Chaparro Ma documented in this encounter [facility] 04-29-2022 History of Presen t illness Narrative Episode Visit Count: 11 Therapist That Will Accept/Oversee The Plan Of Care: Salas Sherman Start of Care Date: 01/10/22 Onset Date: 01/09/22 REHABILITATION AND SPORTS THERAPY PHYSICAL THERAPY TREATMENT NOTE ASSESSMENT: Greyson Rojas tolerated the session with fatigue and no issues. She demonstrated improvements in activity and exercise tolerance. The patient will continue to benefit from ongoing skilled physical therapy to progress toward set goals. PLAN FOR NEXT VISIT: Continue exercise progression per tolerance SUBJECTIVE: Patient Reason for Visit: Pt doing well today. Starting to ramp up yoga a little, and noting some tightness/soreness, but not pain. feels like a good workout. She feels like she is progressing well with her endurance and strength trending upwards. Pain: Pain Pain Level: 1 Pain Location: Hip - Right Description: Sore Frequency: Continuous OBJECTIVE MEASURES WITH LEVEL OF FUNCTION: Form observed throughout lunges TREATMENT: Therapeutic Exercise: 1: Recumbent bike setting 6 x6 min for hip ROM and endurance (subjective taken at this time) 2: TRX step back lunges 3x10/side Skilled Intervention: Patient was educated in proper exercise technique and purpose for exercises. Skilled judgment was provided in selection of appropriate interventions. Provided written instruction for home exercise program to facilitate proper performance and compliance. Correct performance of therapeutic exercises was facilitated with verbal and visual cuing. Self-Penitentiary Management: 1: Discussed use of a suspension applications trainer to introduce new exercises including step back lunges, side lunges, forward lunge progression 2: Discussed exercise progression to include more time under tension or increasing reps 3: Spent time reviewing considerations for osteoporsosis- avoiding heavy bending, lifting, appropriate exercises and stress to bones, neutral spine strengthening, and resources within the [facility] system Skilled Intervention: Skilled judgment in the selection of proper modification for activity of daily living/home management based on clinical presentation, deficits, and needs. Reviewed patient specific diagnosis in relation to activities of daily living/home management. Activity progression based on professional judgement. Instructed on proper lifting and carrying techniques with importance of core activation. Billing Therapeutic Exercise Treatment Minutes: 10 Self-Care/Home Management Treatment Minutes: 30 Total Treatment Time Minutes (timed/untimed): 40 Salas Sherman PT documented in this encounter [facility] 04-25-2022 Miscellaneous Notes Order faxed to [facility] with office notes and insurance information. Please fax compression sleeve order to [employer] documented in this encounter [facility] 04-15-2022 History of Presen t illness Narrative Episode Visit Count: 10 Therapist That Will Accept/Oversee The Plan Of Care: Salas Sherman Start of Care Date: 01/10/22 Onset Date: 01/09/22 REHABILITATION AND SPORTS THERAPY PHYSICAL THERAPY TREATMENT NOTE ASSESSMENT: Greyson Rojas tolerated the session with no issues. She demonstrated improvements in strength and reported no pain w/BFR protocol. The patient will continue to benefit from ongoing skilled physical therapy to progress toward set goals. PLAN FOR NEXT VISIT: [place] SUBJECTIVE: Patient Reason for Visit: Pt feels good returned to yoga for the first time tolerated BFR cuff well from last session. Noted BFR protocol gave her a good workout especially sidelying Abduction Pain: Pain Pain Level: 0 Pain Location: Hip - Right OBJECTIVE MEASURES WITH LEVEL OF FUNCTION: Pt tolerated increase in BFR progression with no issues. TREATMENT: Therapeutic Exercise: 1: Recumbent bike setting 6 x10 min for hip ROM and endurance (subjective taken at this time) 2: reviewed HEP - written list of exercises to focus on 3: BFR calf raises 30, 15, 15, 15 @102mmHg for all below noted BFR exercises 4: BFR anterior tib raises 30, 15, 15, 15 5: BFR sidelying abduction 30, 15, 15, 15 6: BFR glute bridges 30, 15, 15, 15 Skilled Intervention: Patient was educated in proper exercise technique and purpose for exercises. Skilled judgment was provided in selection of appropriate interventions. Provided written instruction for home exercise program to facilitate proper performance and compliance. Correct performance of therapeutic exercises was facilitated with verbal and visual cuing. Billing Therapeutic Exercise Treatment Minutes: 40 Total Treatment Time Minutes (timed/untimed): 40 Milo Campo, SPT Salas Sherman PT Direct supervision was provided by the licensed physical therapist for the entire treatment session and licensed provider made all clinical decisions. documented in this encounter [facility] 04-08-2022 History of Presen t illness Narrative VIRTUAL VISIT PROGRESS NOTE This is a virtual visit using Buku[employer] video visit. It required patient-provider interaction for the medical decision making as documented below. Greyson Rojas is a 52 year old female seen for right hip follow-up, 3 months postop. Patient reports she is doing very well with minimal pain. He is working in physical therapy. There is been no trauma. HISTORY REVIEWED (electronic chart updated): PAST MEDICAL HISTORY Diagnosis Date Anemia, unspecified iron deficiency Breast cancer (HCC) 08/2017 Breast mass 06/2017 right breast Diffuse cystic mastopathy Helicobacter pylori infection Hiatal hernia Major depressive disorder, single episode, unspecified 1999 depressed year after 3rd child: treated for 1 year with Zoloft Meniere disease Dr. Marie ENT Panic disorder without agoraphobia periodic symptoms PAST SURGICAL HISTORY Procedure Laterality Date BREAST RECONSTRUCTION implants removed and replaced BX BREAST W/DEVICE 1ST LESION ULTRASOUND GUID Right 06/12/2017 3 nodules; 5cm, 3cm, 3cm COLONOSCOPY FLX DX W/COLLJ SPEC WHEN PFRMD 03/01/2018 Colonoscopy EGD N/A 11/05/2021 FOOT SURGERY HX Left 1981 Arch reshaping HIP SURGERY HX 01/08/2022 torn labrum, reshaped femoral head LAPAROSCOPIC SALPING/OOPHORECTOMY Right 02/24/2019 Dr. Jasmin Sosa MASTECTOMY, SIMPLE, COMPLETE Bilateral 08/18/2017 Dr. Johnson (reconstruction), Dr. 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 Sosa-[facility] TOTAL ABD HYSTERECTOMY+BLAD REPR N/A 2020 left ovary removed; Dr. Sosa-[facility]- total hysterectomy with rectocele and bladder sling FAMILY HISTORY Problem Relation Age of Onset Cancer Mother melanoma Hypertension Mother Lipids Mother Breast Cancer Mother 63 Diabetes Mother Arthritis Father Lipids Father High Triglycerides Heart Father ICD/pacer, CHF/s/p [place] Diabetes Father Colon Cancer Paternal Grandmother Cancer Paternal Grandfather HCC-EtOH abuse Heart Maternal Uncle enlarged heart: cardiomyopathy Hypertension Brother Diabetes Sister Lipids Sister Ischemic Heart Disease Maternal Uncle Breast Cancer Other 49 maternal cousin (mothers-brothers child) Social History Tobacco Use Smoking status: Never Smokeless tobacco: Never Vaping Use Vaping Use: Never used Substance Use Topics Alcohol use: No Drug use: No Current Outpatient Medications Medication Sig tamoxifen (NOLVADEX) 20 mg tablet Take 1 tablet (20 mg) by mouth once daily. omeprazole (PRILOSEC) 20 mg capsule Take 1 capsule by mouth once daily. Lactobacillus acidophilus (PROBIOTIC ORAL) Take by mouth. Ascorbic Acid 500 mg cpER Take by mouth. cholecalciferol (VITAMIN D3) 1,000 unit tab tablet Take by mouth. docusate sodium (COLACE) 100 mg capsule Take by mouth. turmeric-turmeric root extract 450-50 mg cap Take by mouth. venlafaxine ER (EFFEXOR XR) 37.5 mg 24 hr capsule TAKE 1 CAPSULE ONCE DAILY mecobalamin (B12 ACTIVE ORAL) Take 1 tablet by mouth once daily. CALCIUM CARBONATE/VITAMIN D3 (VITAMIN D-3 ORAL) Take by mouth twice daily. No current facility-administered medications for this visit. ALLERGIES Allergen Reactions Penicillins Hives Other reaction(s): hives all over body REVIEW OF SYSTEMS: PHYSICAL EXAMINATION: VIDEO EXAM: (if completed, performed via video enabled technology) On self-examination she has symmetric hip flexion with no pain in the anterior impingement position on the right. She has symmetric internal and external rotation. She has a slight loss of motion in the Ruma position on the right compared to the left. There is no tenderness palpation over the greater trochanter. ASSESSMENT: (V48.340P) Acetabular labrum tear, right, subsequent encounter (primary encounter diagnosis) PLAN: Plan for the patient is discussed and expectations are reviewed. Proceed forward with rehab per protocol. Okay to progress with nonimpact cardio including yoga. She will be careful by extremes of range of motion while also working on supine Ruma range of motion. See her back in the office in 3 months. She will let us know if there are any issues in the interim. All questions were answered today. There are no Patient Instructions on file for this visit. I spent a total of 12 minutes on the date of the service which included preparing to see the patient, [id number] patient care, completing clinical documentation, obtaining and/or reviewing separately obtained history, performing a medically appropriate examination, and counseling and educating the patient/family/caregiver Renan Paige MD documented in this encounter [facility] 04-03-2022 History of Presen t illness Narrative Images from the original note were not included. Claire Chaney MD [facility] [address] [place] [address] SUBJECTIVE Chief Complaint: Patient presents with: Yearly Exam . HPI Greyson Rojas is a 52 year old female here for follow up. She is status post bilateral skin sparing mastectomies, right sentinel lymph node biopsy on 08/18/2017 for invasive lobular carcinoma grade 2, ER/FL+ H2N - and risk reduction. Pathological stage IB [pT2(3cm)N0(0/2)M0]. Taking tamoxifen prescribed by Dr Brar. Dr Johnson recently revised her reconstruction. She denies palpating any axillary adenopathy. No skin changes. Nursing Notes: Ceci Novoa MA 04/03/2022 9:15 AM Signed Patient here for yearly CBE. Patient had implants removed and replaced 3 weeks ago. States the right side is more posterior and firmer but saw Dr. Santiago yesterday who told her to give it more time and let it settle. Ceci Novoa MA No question data found. ROS PAST MEDICAL HISTORY Diagnosis Date Anemia, unspecified iron deficiency Breast cancer (HCC) 08/2017 Breast mass 06/2017 right breast Diffuse cystic mastopathy Helicobacter pylori infection Hiatal hernia Major depressive disorder, single episode, unspecified 1999 depressed year after 3rd child: treated for 1 year with Zoloft Meniere disease Dr. Marie ENT Panic disorder without agoraphobia periodic symptoms PAST SURGICAL HISTORY Procedure Laterality Date BREAST RECONSTRUCTION implants removed and replaced BX BREAST W/DEVICE 1ST LESION ULTRASOUND GUID Right 06/12/2017 3 nodules; 5cm, 3cm, 3cm COLONOSCOPY FLX DX W/COLLJ SPEC WHEN PFRMD 03/01/2018 Colonoscopy EGD N/A 11/05/2021 FOOT SURGERY HX Left 1981 Arch reshaping HIP SURGERY HX 01/08/2022 torn labrum, reshaped femoral head LAPAROSCOPIC SALPING/OOPHORECTOMY Right 02/24/2019 Dr. Jasmin Sosa MASTECTOMY, SIMPLE, COMPLETE Bilateral 08/18/2017 Dr. Johnson (reconstruction), Dr. 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 Sosa-[facility] TOTAL ABD HYSTERECTOMY+BLAD REPR N/A 2020 left ovary removed; Dr. Sosa-[facility]- total hysterectomy with rectocele and bladder sling Social History Tobacco Use Smoking status: Never Smokeless tobacco: Never Vaping Use Vaping Use: Never used Substance Use Topics Alcohol use: No Drug use: No FAMILY HISTORY Problem Relation Age of Onset Cancer Mother melanoma Hypertension Mother Lipids Mother Breast Cancer Mother 63 Diabetes Mother Arthritis Father Lipids Father High Triglycerides Heart Father ICD/pacer, CHF/s/p [place] Diabetes Father Colon Cancer Paternal Grandmother Cancer Paternal Grandfather HCC-EtOH abuse Heart Maternal Uncle enlarged heart: cardiomyopathy Hypertension Brother Diabetes Sister Lipids Sister Ischemic Heart Disease Maternal Uncle Breast Cancer Other 49 maternal cousin (mothers-brothers child) The ROS, medical, surgical, family, and 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 were reviewed by Claire Chaney MD ALLERGIES Allergen Reactions Penicillins Hives Other reaction(s): hives all over body Current Outpatient Medications Medication Sig tamoxifen (NOLVADEX) 20 mg tablet Take 1 tablet (20 mg) by mouth once daily. omeprazole (PRILOSEC) 20 mg capsule Take 1 capsule by mouth once daily. Lactobacillus acidophilus (PROBIOTIC ORAL) Take by mouth. Ascorbic Acid 500 mg cpER Take by mouth. cholecalciferol (VITAMIN D3) 1,000 unit tab tablet Take by mouth. docusate sodium (COLACE) 100 mg capsule Take by mouth. turmeric-turmeric root extract 450-50 mg cap Take by mouth. venlafaxine ER (EFFEXOR XR) 37.5 mg 24 hr capsule TAKE 1 CAPSULE ONCE DAILY mecobalamin (B12 ACTIVE ORAL) Take 1 tablet by mouth once daily. CALCIUM CARBONATE/VITAMIN D3 (VITAMIN D-3 ORAL) Take by mouth twice daily. No current facility-administered medications for this visit. OBJECTIVE BP 101/63 Pulse 73 Ht 161.9 cm (5' 3.75) Wt 58.5 kg (129 lb) LMP 06/08/2020 (Approximate) BMI 22.32 kg/m BMI 22.32 kg/(m^2) Physical Exam Neck: Thyroid: No thyromegaly. Chest: Breasts: Breasts are symmetrical. Right: Absent. No inverted nipple, mass, nipple discharge, skin change (bilateral incisions clean dry and intact) or tenderness. Left: Absent. No inverted nipple, mass, nipple discharge, skin change or tenderness. Lymphadenopathy: Head: Right side of head: No submental, submandibular or tonsillar adenopathy. Left side of head: No submental, submandibular or tonsillar adenopathy. Cervical: No cervical adenopathy. Upper Body: Right upper body: No supraclavicular or axillary adenopathy. Left upper body: No supraclavicular or axillary adenopathy. Neurological: Mental Status: She is alert and oriented to person, place, and time. Plan ASSESSMENT/PLAN Carcinoma of upper-outer quadrant of right breast in female, estrogen receptor positive (HCC) Ms. Rojas is a 52 year old female here today for follow up. She is status post bilateral skin sparing mastectomies, right sentinel lymph node biopsy on 08/18/2017 for invasive lobular carcinoma grade 2, ER/FL+ H2N - and risk reduction. Pathological stage IB [pT2(3cm)N0(0/2)M0]. Taking tamoxifen prescribed by Dr Brar Recent revision of her reconstruction with Dr Johnson. Today, there was nothing suspicious on her clinical exam.. According to NCCN guidelines, she should have an H&P 1-4 times per year and clinical exams. She is following with Dr. Brar more frequently. Follow up with survivorship in 1 year. She should continue monthly self breast exams and call with any concerns. Follow up: Return for survivorship in 1 year. Claire Chaney MD 04/03/2022 9:26 AM documented in this encounter [facility] 04-03-2022 Nurse Note Patient here for yearly CBE. Patient had implants removed and replaced 3 weeks ago. States the right side is more posterior and firmer but saw Dr. Santiago yesterday who told her to give it more time and let it settle. Ceci Novoa MA documented in this encounter [facility] 04-01-2022 History of Presen t illness Narrative Episode Visit Count: 9 Therapist That Will Oversee The Plan Of Care: Salas Sherman Start of Care Date: 01/10/22 Onset Date: 01/09/22 REHABILITATION AND SPORTS THERAPY PHYSICAL THERAPY TREATMENT NOTE ASSESSMENT: Greyson Rojas tolerated the session with fatigue and no issues. She demonstrated improvements in exercise tolerance, and had good initial response to BFR training. The patient will continue to benefit from ongoing skilled physical therapy to progress toward set goals and to continue with post-operative protocol . PLAN FOR NEXT VISIT: SUBJECTIVE: Patient Reason for Visit: Pt has been tired after work, but no pain or issues. Pain: Pain Pain Level: 0 OBJECTIVE MEASURES WITH LEVEL OF FUNCTION: 170 mmHg RLE LOP TREATMENT: Therapeutic Exercise: 1: Recumbent bike setting 6 x10 min for hip ROM and endurance 2: reviewed HEP 3: BFR 2x5 min cellular swelling protocol (170 mmHg LOP, 80%. Round 1 passive, round 2 quad isometrics) Skilled Intervention: Patient was educated in proper exercise technique and purpose for exercises. Skilled judgment was provided in selection of appropriate interventions. Correct performance of therapeutic exercises was facilitated with verbal, visual, and tactile cuing. Neuromuscular Re-Education: 1: SLS on flat ground x30 sec/side 2: Balance board taps x20 each way and static holds x30 sec each way 3: Airex pad NBOS, semi tandem, tandem stance EC x20 [address] way 4: Airex pad SLS x20 sec/side EO Skilled Intervention: Skilled judgment used to assess appropriate program for balance and coordination activity. Ensured patient safety with use of CGA Billing Therapeutic Exercise Treatment Minutes: 32 Neuromuscular Re-Education Treatment Minutes: 10 Total Treatment Time Minutes (timed/untimed): 42 Salas Sherman PT documented in this encounter [facility] 03-21-2022 History of Presen t illness Narrative Episode Visit Count: 8 Therapist That Will Oversee The Plan Of Care: Salas Lane Start of Care Date: 01/10/22 Onset Date: 01/09/22 REHABILITATION AND SPORTS THERAPY PHYSICAL THERAPY PROGRESS REPORT PLAN OF CARE UPDATE: Assessment: Greyson Rojas demonstrates significant improvement in rising from a chair, standing, walking, bending, heavy exertion, lifting, and physical activities . She hasprogressed toward goals. Patient continues to present with impairments in ADL's, overall function, and strength that interfere with heavy exertion;lifting;recreational activities;working . Current prognosis is Excellent due to: current objective clinical presentation;good overall health status;positive past response to therapy;good support system/ coping skills . She will benefit from continued skilled therapy services to meet the updated goals for this plan of care as noted below. Goals updated on 03/19/2022. Goals for Episode of Care: created on 01/10/22 through 04/12/22 [place] in home exercise program. Currently met Patient will decrease pain rating by 2 points to meet minimal clinical important difference for numeric pain rating scale. Met, goal to maintain 0/10 Patient will increase active ROM of R hip to = L to allow pt to to improve performance of ADLs and to improve gait mechanics / gait pattern. Met Patient will demonstrate increase in R hip strength to 5/5 during manual muscle testing in order to improve function for basic self-care tasks, home management tasks, leisure / recreation skills, light functional tasks, moderate to heavy functional tasks, prior functional tasks and work Tasks. Progressing towards Perform ADLs and self care tasks with decreased report of symptoms/pain in 4-6 weeks. Met Perform walking without pain. Met Normal gait. Met Reciprocal stair negotiation. Met Patient Goals: get back to PLOF with recreational activities Planned Interventions, Frequency, and Duration: 1x every other week, 4 weeks Total Number of Visits Planned: 2 Patient to be seen for Therapeutic exercise (95687);Neuromuscular re-education (60349);Manual therapy (45606);Therapeutic activities (16249);Self-group home management (20300);Gait Training (38344);Patient/Family/Caregiver Education;Body Mechanics Training PLAN FOR NEXT VISIT: Continue exercise progression per tolerance, may try progressing machines SUBJECTIVE: Patient Reason for Visit: Pt doing really well. Starts school next week and she is worried about making it through the day. Only motion that hurts in closed chain IR of the R hip. Functional Limitations: heavy exertion;lifting;recreational activities;working Pain: Pain Pain Level: 0 PROMIS Scales Higher is Better 10/13/2021 11/17/2021 01/08/2022 Phys Func - Score 49 (within normal limits) 47 (within normal limits) 29 (severe dysfunction) Phys Func - Percentile 46 % 38 % 2 % Social Roles - Score 52 (within normal limits) 50 (within normal limits) 52 (within normal limits) Social Role - Percentile 58 % 50 % 58 % GH Physical - Score 44.9 (Good) - 42.3 (Good) GH Physical - Percentile 31 % - 22 % GH Mental - Score 48.3 (Very Good) - 67.6 (Excellent) GH Mental - Percentile 43 % - 96 % Self-Eff Symptom - Score 50 (Average) 48 (Average) 50 (Average) Self-Eff Symptom - Percentile 50 % 42 % 50 % T-scores: mean of general population = 50. 5 points is clinically meaningfully difference Percentiles provide an indication of how the patient's score ranks in relation to the general population. Higher percentile rankings indicate better function/quality of life. 50th percentile is the average of the general population and indicates half of respondents had a worse score. Lower is Better 10/13/2021 11/17/2021 01/08/2022 Fatigue - Score 51 (within normal limits) 45 (within normal limits) 45 (within normal limits) Fatigue - Percentile 46 % 69 % 69 % T-scores: mean of general population = 50. 5 points is clinically meaningfully difference Percentiles provide an indication of how the patient's score ranks in relation to the general population. Higher percentile rankings indicate better function/quality of life. 50th percentile is the average of the general population and indicates half of respondents had a worse score. OBJECTIVE MEASURES WITH LEVEL OF FUNCTION: LE PROM R Hip Extension: 20 Degrees R Hip Flexion: 130 Degrees R Hip ABduction: 60 Degrees R Hip ADduction: 25 Degrees LE Strength R LE Strength: 4+/5 grossly TREATMENT: Therapeutic Exercise: 1: Recumbent bike setting 6 x10 min for hip ROM and endurance 2: reviewed HEP 3: Leg press 2x20 64# 4: Multihip abduction 40# 2x10 5: Multihip extension 2x10 40# 6: Discussed balance exercises at home, including SLS x30 sec Skilled Intervention: Patient was educated in proper exercise technique and purpose for exercises. Skilled judgment was provided in selection of appropriate interventions. Provided written instruction for home exercise program to facilitate proper performance and compliance. Correct performance of therapeutic exercises was facilitated with verbal, visual, and tactile cuing. Billing Therapeutic Exercise Treatment Minutes: 40 Total Treatment Time Minutes (timed/untimed): 40 Salas Sherman PT documented in this encounter [facility] 03-13-2022 History of Presen t illness Narrative Episode Visit Count: 7 Therapist That Will Oversee The Plan Of Care: Salas Sherman Start of Care Date: 01/10/22 Onset Date: 01/09/22 REHABILITATION AND SPORTS THERAPY PHYSICAL THERAPY TREATMENT NOTE ASSESSMENT: Greyson Rojas tolerated the session with fatigue and no issues. She demonstrated improvements in exercise tolerance and functional use of the RLE. The patient will continue to benefit from ongoing skilled physical therapy to progress toward set goals and to continue with post-operative protocol . PLAN FOR NEXT VISIT: SUBJECTIVE: Patient Reason for Visit: Pt back from vacation and had no issues. A few moments of uncertainty [place] in the ocean, but never felt pain. Pain: Pain Pain Level: 0 OBJECTIVE MEASURES WITH LEVEL OF FUNCTION: Patient with hip>ankle strategy on RLE with balance exercises TREATMENT: Therapeutic Exercise: 1: Recumbent bike setting 6 x10 min for hip ROM and endurance (subjective taken at this time) 2: reviewed HEP 3: Leg press 2x20 64# 4: Multihip abduction 40# 2x10 5: Multihip extension 2x10 40# Skilled Intervention: Patient was educated in proper exercise technique and purpose for exercises. Skilled judgment was provided in selection of appropriate interventions. Correct performance of therapeutic exercises was facilitated with verbal and visual cuing. Neuromuscular Re-Education: 1: SLS on flat ground x30 sec/side 2: Balance board taps x20 each way and static holds x30 sec each way 3: Airex pad NBOS, semi tandem, tandem stance EC x[address] way 4: Airex pad SLS x20 sec/side EO Skilled Intervention: Skilled judgment used to assess appropriate program for balance and coordination activity. Insured patient safety with use of CGA Billing Therapeutic Exercise Treatment Minutes: 25 Neuromuscular Re-Education Treatment Minutes: 15 Total Treatment Time Minutes (timed/untimed): 40 Salas Sherman PT documented in this encounter [facility] 02-27-2022 Miscellaneous Notes Pt responded to [employer] message. This encounter will be closed. Susan Scott Ma Occipitalt message sent to pt notifying her we've tried contacting her by phone but unable to LM. Gave message below to pt and asked for her to respond back regarding Iron dosage. Susan Scott Ma TC Patient Unable to leave message on voice mail. Please give patient a call back at later time. Ceci Miranda RN Please call patient and let her know that blood work results look fantastic. No concerns at all. Iron level is actually elevated. Please clarify what dosage of iron the patient is taking -- we might need to slightly decrease this dosage. Lipid panel is very very slightly elevated -- routine exercise and a healthy diet will improve these values. Otherwise, everything looks great. Thank you, Izabella Sanchez APRN.CUSTOMER SALES SPECIALIST documented in this encounter [facility] 02-21-2022 Instructions Aida Madden PA-C - 02/21/2022 9:27 AM EDT Advance activity per PT guidance. Pool per tolerance - NO breast stroke, scissor kick, treading water, flip turns and pushing off the wall Begin/ advance low impact cardio: Upright stationary bike - stay seated and avoid clipping in/ strapping feet to pedals on bike Elliptical avoid inclines/ declines Gentle freestyle or backstroke No impact and explosive/ ballistic activities (running, jumping, forced extremes of motion) No deep (> 90 degrees) squatting Lifting restriction max 30 pounds rarely Upper body lifting - as long feet are not in contact with ground. Do no lift and carry free weights Anticipate roller coasters 4-4.5 months after surgery documented in this encounter [facility] 02-21-2022 History of Presen t illness Narrative POST OP DIST[facility] VIRTUAL VISIT DOCUMENTATION NOTE This virtual visit was performed via video enabled technology, and the patient provided consent to be evaluated and managed using this virtual visit and video enabled technology. [employer] Platform: [employer] Virtual Visit People present : Aida Madden PA-C and Patient Time Spent for video encounter, record review and documentation: 21 minutes CHIEF COMPLAINT (CC): Post op right hip HISTORY OF PRESENT ILLNESS (HPI): 6 weeks s/p right hip arthroscopy No systemic complaints. Reports some tightness right hip PT going well - advanced to closed chain exercises EXAMINATION: There is no height or weight on file to calculate BMI. This examination was performed via video enabled technology. Patient does not appear to be in any acute distress Patient is alert and oriented with normal affect Right Hip Examination Inspection: incisions healed Range of motion (patient performed these range of motions with my instruction via the video enabled technology): HF 100, ER 50, IR 20 Palpation (patient localized these landmarks with my instruction via the video enabled technology): Pain localized to the SI joint Special testing (patient performed these maneuvers on themselves with my instruction via the video enabled technology): FADIR: negative RUMA: LOM Neurologic: Intact sensation testing of the lower extremities with no dysesthesia Impression: 6 weeks s/p right hip arthroscopy Plan: Discussed Advance PT and activities per protocol. Precautions reinforced. No impact activities Follow-up: [address] Royal Madden, MS, PAChelyC documented in this encounter [facility] 02-20-2022 History of Presen t illness Narrative Episode Visit Count: 6 Therapist That Will Oversee The Plan Of Care: Salas Sherman Start of Care Date: 01/10/22 Onset Date: 01/09/22 REHABILITATION AND SPORTS THERAPY PHYSICAL THERAPY TREATMENT NOTE ASSESSMENT: Greyson Rojas tolerated the session with fatigue and no issues. She demonstrated improvements in exercise tolerance and is progressing well through surgical protocol. The patient will continue to benefit from ongoing skilled physical therapy to progress toward set goals and to continue with post-operative protocol . PLAN FOR NEXT VISIT: Week 8 of protocol SUBJECTIVE: Patient Reason for Visit: Pt doing great today. Notes some intermittent mm soreness, but no joint issues since the surgery. Pain: Pain Pain Level: 0 OBJECTIVE MEASURES WITH LEVEL OF FUNCTION: Ankle strategy noted with balance TREATMENT: Therapeutic Exercise: 1: Recumbent bike setting 6 x10 min for hip ROM and endurance (subjective taken at this time) 2: *Standing hip adductor stretch on R 3x10 sec 3: *Half kneeling hip flexor stretch 3x30 sec 4: *Front planks 4x30 sec 5: *Side planks, modified 3x30 sec/side 6: Leg press 64# 2x10 7: Single leg press 2x10 40# Skilled Intervention: Patient was educated in proper exercise technique and purpose for exercises. Skilled judgment was provided in selection of appropriate interventions. Provided written instruction for home exercise program to facilitate proper performance and compliance. Correct performance of therapeutic exercises was facilitated with verbal, visual and tactile cuing. Neuromuscular Re-Education: 1: SLS on flat ground, EO 3x30 sec Skilled Intervention: Skilled judgment used to assess appropriate program for balance and coordination activity. Billing Therapeutic Exercise Treatment Minutes: 40 Neuromuscular Re-Education Treatment Minutes: 3 Total Treatment Time Minutes (timed/untimed): 43 Salas Sherman PT documented in this encounter [facility] 02-13-2022 History of Presen t illness Narrative Episode Visit Count: 5 Therapist That Will Oversee The Plan Of Care: Salas Sherman Start of Care Date: 01/10/22 Onset Date: 01/09/22 REHABILITATION AND SPORTS THERAPY PHYSICAL THERAPY PROGRESS REPORT PLAN OF CARE UPDATE: Assessment: Greyson Rojas demonstrates significant improvement in rising from a chair, standing, walking, stair negotiation, bending and sleeping . She hasprogressed toward goals. Patient continues to present with impairments in overall function and strength that interfere with heavy exertion;lifting;physical activities;recreational activities;jumping;squatting;runn ing . Current prognosis is Excellent due to: current objective clinical presentation;good overall health status;acuteness of condition;positive past response to therapy;within-session changes;good support system/ coping skills . She will benefit from continued skilled therapy services to meet the updated goals for this plan of care as noted below. Goals updated on 02/13/2022. Goals for Episode of Care: created on 01/10/22 through 04/12/22 [place] in home exercise program. Currently met Patient will decrease pain rating by 2 points to meet minimal clinical important difference for numeric pain rating scale. Met, goal to maintain 0/10 Patient will increase active ROM of R hip to = L to allow pt to to improve performance of ADLs and to improve gait mechanics / gait pattern . Progressing towards Patient will demonstrate increase in R hip strength to 5/5 during manual muscle testing in order to improve function for basic self-care tasks, home management tasks, leisure / recreation skills, light functional tasks, moderate to heavy functional tasks, prior functional tasks and work Tasks. Progressing towards Perform ADLs and self care tasks with decreased report of symptoms/pain in 4-6 weeks. Met Perform walking without pain. Met Normal gait. Met Reciprocal stair negotiation. Met Patient Goals: get back to PLOF with recreational activities Planned Interventions, Frequency, and Duration: 1x/week, 8 weeks Total Number of Visits Planned: 8 Patient to be seen for Therapeutic exercise (69410);Neuromuscular re-education (40729);Manual therapy (06252);Therapeutic activities (58222);Self-group home management (71673);Gait Training (47122);Patient/Family/Caregiver Education;Body Mechanics Training PLAN FOR NEXT VISIT: Continue exercise progression per surgical protocol SUBJECTIVE: Patient Reason for Visit: Pt doing much better. Exercises going well, and no issues with daily activities. Notes she overdid the recumbent bike and exercises a few days, but it only caused muscle soreness, no joint issues. Functional Limitations: heavy exertion;lifting;physical activities;recreational activities;jumping;squatting;runn ing Pain: Pain Pain Level: 0 Pain Location: Hip - Right Description: Tightness Frequency: Intermittent PROMIS Scales Higher is Better 10/13/2021 11/17/2021 01/08/2022 Phys Func - Score 49 (within normal limits) 47 (within normal limits) 29 (severe dysfunction) Phys Func - Percentile 46 % 38 % 2 % Social Roles - Score 52 (within normal limits) 50 (within normal limits) 52 (within normal limits) Social Role - Percentile 58 % 50 % 58 % GH Physical - Score 44.9 (Good) - 42.3 (Good) GH Physical - Percentile 31 % - 22 % GH Mental - Score 48.3 (Very Good) - 67.6 (Excellent) GH Mental - Percentile 43 % - 96 % Self-Eff Symptom - Score 50 (Average) 48 (Average) 50 (Average) Self-Eff Symptom - Percentile 50 % 42 % 50 % T-scores: mean of general population = 50. 5 points is clinically meaningfully difference Percentiles provide an indication of how the patient's score ranks in relation to the general population. Higher percentile rankings indicate better function/quality of life. 50th percentile is the average of the general population and indicates half of respondents had a worse score. Lower is Better 10/13/2021 11/17/2021 01/08/2022 Fatigue - Score 51 (within normal limits) 45 (within normal limits) 45 (within normal limits) Fatigue - Percentile 46 % 69 % 69 % T-scores: mean of general population = 50. 5 points is clinically meaningfully difference Percentiles provide an indication of how the patient's score ranks in relation to the general population. Higher percentile rankings indicate better function/quality of life. 50th percentile is the average of the general population and indicates half of respondents had a worse score. OBJECTIVE MEASURES WITH LEVEL OF FUNCTION: LE PROM R Hip Extension: 15 Degrees R Hip Flexion: 120 Degrees R Hip ABduction: 40 Degrees R Hip ADduction: 10 Degrees LE Strength R LE Strength: 4/5 grossly Gait Brace/Orthotics: none TREATMENT: Therapeutic Exercise: 1: Recumbent bike setting 6 x10 min for hip ROM and endurance (subjective taken at this time) 2: *Prone quad stretch 3x30 sec 3: Prone hip extension 3x10 4: *SL hip abduction 3x10 (cuing for proper form, and gave handout for progression) 5: *Clamshells 3x10 added OTB today 6: *Quadruped rocking 3x10 7: *Prone hip IR/ER 3x[address] each way 8: *Kneeling on stool, IR/ER 3x10 Skilled Intervention: Patient was educated in proper exercise technique and purpose for exercises. Skilled judgment was provided in selection of appropriate interventions. Provided written instruction for home exercise program to facilitate proper performance and compliance. Correct performance of therapeutic exercises was facilitated with verbal, visual and tactile cuing. Neuromuscular Re-Education: 1: *SLS on flat ground, EO 3x30 sec Skilled Intervention: Skilled judgment used to assess appropriate program for balance and coordination activity. Education in proprioceptive/kinesthetic awareness during standing. Billing Therapeutic Exercise Treatment Minutes: 38 Neuromuscular Re-Education Treatment Minutes: 3 Total Treatment Time Minutes (timed/untimed): 41 Salas Sherman PT documented in this encounter [facility] 02-12-2022 Miscellaneous Notes She is due for both hepatitis C and HIV screenings, which are one-time screenings that are recommended. I've placed the orders for this bloodwork for her. Rossi Martinez [email or web address] Please review pt message. She does not fall into the age group for testing at higher risk. Do you want pt to complete this? Susan Scott Ma documented in this encounter [facility] 01-30-2022 History of Presen t illness Narrative Episode Visit Count: 4 Therapist That Will Oversee The Plan Of Care: Salas Sherman Start of Care Date: 01/10/22 Onset Date: 01/09/22 REHABILITATION AND SPORTS THERAPY PHYSICAL THERAPY TREATMENT NOTE ASSESSMENT: Greyson Rojas tolerated the session with fatigue and no issues. She demonstrated improvements in hip range of motion, decreased pain, and normalized gait. The patient will continue to benefit from ongoing skilled physical therapy to progress toward set goals, for reassessment by supervising therapist and to continue with post-operative protocol . PLAN FOR NEXT VISIT: [place] SUBJECTIVE: Patient Reason for Visit: Pt doing well, walking without a limp and no pain. Pain: Pain Pain Level: 0 Pain Location: Hip - Right Description: Tightness Frequency: Intermittent OBJECTIVE MEASURES WITH LEVEL OF FUNCTION: 15 degrees PROM hip extension TREATMENT: Therapeutic Exercise: 1: Recumbent bike setting 6 x10 min for hip ROM and endurance (subjective also taken during this time, plan for therapy progressions, reviewed restrictions lifted today) 2: *Prone hip extension 3x10 3: *SL hip abduction 3x10 (tolerated range) 4: *Clamshells 3x10 5: *Quadruped rocking 3x10 6: *Ab bracing in hooklying 3x10, 5 sec holds 7: *Calf raises 3x20 8: *Prone hip IR/ER 3x[address] 9: *Kneeling on stool, IR/ER 3x10 Skilled Intervention: Patient was educated in proper exercise technique and purpose for exercises. Skilled judgment was provided in selection of appropriate interventions. Provided written instruction for home exercise program to facilitate proper performance and compliance. Correct performance of therapeutic exercises was facilitated with verbal, visual and tactile cuing. Patient education as noted. Billing Therapeutic Exercise Treatment Minutes: 40 Total Treatment Time Minutes (timed/untimed): 40 Salas Sherman PT documented in this encounter [facility] 01-23-2022 History of Presen t illness Narrative Episode Visit Count: 3 Therapist That Will Oversee The Plan Of Care: Salas Sherman Start of Care Date: 01/10/22 Onset Date: 01/09/22 REHABILITATION AND SPORTS THERAPY PHYSICAL THERAPY TREATMENT NOTE ASSESSMENT: Greyson Rojas tolerated the session with fatigue, decreased symptoms and no issues. She demonstrated improvements in tolerance for hip flexion range of motion and active SLR. The patient will continue to benefit from ongoing skilled physical therapy to progress toward set goals. PLAN FOR NEXT VISIT: Add in hip strengthening, Sl hip abduction, clams possibly SUBJECTIVE: Patient Reason for Visit: No issues today. Brace gone and feeling much better. Doing the exercises multiple times a day Pain: OBJECTIVE MEASURES WITH LEVEL OF FUNCTION: Hip flexion range of motion on R: 110 degrees TREATMENT: Therapeutic Exercise: 2: PROM circumduction 3x20 cw/ccw 3: PROM hip flexion to 90 degrees max 3x20 4: Self PROM hip flexion via knee to chest on right x10, 5 sec holds 5: AROM IR log rolls x20 6: PROM hip ER in <70 degrees flexion 3x20 7: *SLR x10 Skilled Intervention: Patient was educated in proper exercise technique and purpose for exercises. Skilled judgment was provided in selection of appropriate interventions. Provided written instruction for home exercise program to facilitate proper performance and compliance. Correct performance of therapeutic exercises was facilitated with verbal, visual and tactile cuing. Gait Trainin: Pt cued on ambulation weaning out of crutches over the next week. Cued for heel to toe ambulation, good push off, and cuing for decreased dynamic valgus Skilled Intervention: Patient was provided supervision during pre-gait/gait training to prevent falls and insure safety. Facilitated proper gait cycle with the use of verbal and visual cues for correction of gait deviations identified in the objective section above. Billing Therapeutic Exercise Treatment Minutes: 20 Gait Training Treatment Minutes: 5 Total Treatment Time Minutes (timed/untimed): 25 Salas Sherman PT documented in this encounter [facility] 01-21-2022 Instructions Aida Madden PA-C - 01/21/2022 11:12 AM EDT Wound Care You can get your incisions wet in the shower, by allowing the water to run over them. Avoid scrubbing incisions. Expect stiffness in the morning and soreness at the end of the day. Monitor soreness if increasing daily - sign you are overdoing it. Do not soak or submerge your leg in a hot tub, bath tub or pool until you are at least 4 weeks post op and incisions well healed. Do not apply lotions or ointments to your incisions until you are 3 weeks post op and incisions are well healed. Medications: Finish Naproxen prescription. Then NSAID as needed for pain Pain medication - Over the Counter Tylenol (Acetaminophen) - Max 3000 mg per day Motion: Hip flex > 90 degrees per tolerance at 2 weeks post op Avoid - hip abduction ( moving hip/ leg away from your midline) past shoulder width, hyperextension (moving leg backward) and letting your feet hand turner when standing or laying flat- until 3 weeks post op then as tolerated 3 weeks post op no motion restrictions - extremes of motion and quick movements will continue to be uncomfortable It is normal to experience clicks, pops, cracks to varying degrees - as the scar tissue is maturing and you are gaining muscle strength and endurance Activities: Stop wearing the brace 01/22/22 at end of the day Ok to sleep in any comfortable position - either side recommend pillow between your knees It is normal to have morning stiffness and soreness at the end of the day. Monitor soreness if increasing daily - sign you are overdoing it. Physical therapy - not more than twice a week Continue to lay on your stomach for 1 to 2 hours per day to stretch the front of your hip. May do this in 5-10 minute increments. Avoid walking for exercise Upright stationary bike for motion only over the next 3-4 weeks - do not have feet attached to pedals (no strap or clipping in) - can work up to 20 minutes twice a day Pool at 4 weeks post op IF incisions are completely healed: avoid breast stroke, treading water, scissor kick/ motion. Ok to begin gentle freestyle and deep water jog at 5-6 weeks post op Lifting: Nothing greater than a gallon of milk until next office visit Weight Bearing: Progressive starting - use 2 crutches for minimum 2-3 days working up to 50 % weight bearing then if able to comfortably bear more than 50% weight transition to 1 crutch or cane for at least 3 days - full weight bearing as tolerated day 3. Then cane/ crutch as needed. Avoid limping Driving: Once you have good leg control and are able to safely and confidently move from gas to break and slam on brake if necessary to protect yourself and others. Follow-up: 4 weeks documented in this encounter [facility] 01-21-2022 History of Presen t illness Narrative Post Op Follow Up Visit Greyson Westfalltomyliset returns 12 days s/p 1. right hip arthroscopy. 2. Acetabuloplasty CPT 05925 3. Labral repair. CPT 37091 4. Femoroplasty. CPT 43061 5. Capsular Closure DOS: 01/09/22 PAIN EVALUATION No data found in the last 1 encounters. Naproxen consistently - tolerating wel Brace intact Weight bearing: touchdown with 2 crutches Physical therapy weekly Review of Symptoms: General: no fevers, chills, nausea/vomiting, malaise CV: No chest pain, no calf pain or redness Pulm: No shortness of breath GI: No nausea, vomiting or constipation HEENT: No head ache Physical Examination: This is a well appearing, well nourished patient in no acute distress. Breathes easily and has normal chest wall excursion. Affect is normal. Right hip: Sutures removed without incident. Incisions healing well with no erythema, drainage, induration. There are no signs of infection. Wounds re-enforced with steri strips. Intact sensation in the distribution of the lateral femoral cutaneous nerve No discomfort with IR log roll Hip flexion to 90 degrees without pain External rotation at 90 to 50 degrees without pain Calves soft, non tender, no palpable cords 5/5 strength with resisted DF/EHL/PF bilaterally Impression: Approximately 2 weeks s/p right hip scope. No evidence of infection or DVT Plan: Discussed Intra operative and post operative course and expectations discussed. Arthroscopy pictures reviewed. Wound Care You can get your incisions wet in the shower, by allowing the water to run over them. Avoid scrubbing incisions. Expect stiffness in the morning and soreness at the end of the day. Monitor soreness if increasing daily - sign you are overdoing it. Do not soak or submerge your leg in a hot tub, bath tub or pool until you are at least 4 weeks post op and incisions well healed. Do not apply lotions or ointments to your incisions until you are 3 weeks post op and incisions are well healed. Medications: Finish Naproxen prescription. Then NSAID as needed for pain Pain medication - Over the Counter Tylenol (Acetaminophen) - Max 3000 mg per day Motion: Hip flex > 90 degrees per tolerance at 2 weeks post op Avoid - hip abduction ( moving hip/ leg away from your midline) past shoulder width, hyperextension (moving leg backward) and letting your feet hand turner when standing or laying flat- until 3 weeks post op then as tolerated 3 weeks post op no motion restrictions - extremes of motion and quick movements will continue to be uncomfortable It is normal to experience clicks, pops, cracks to varying degrees - as the scar tissue is maturing and you are gaining muscle strength and endurance Activities: Stop wearing the brace 01/22/22 at end of the day Ok to sleep in any comfortable position - either side recommend pillow between your knees It is normal to have morning stiffness and soreness at the end of the day. Monitor soreness if increasing daily - sign you are overdoing it. Physical therapy - not more than twice a week Continue to lay on your stomach for 1 to 2 hours per day to stretch the front of your hip. May do this in 5-10 minute increments. Avoid walking for exercise Upright stationary bike for motion only over the next 3-4 weeks - do not have feet attached to pedals (no strap or clipping in) - can work up to 20 minutes twice a day Pool at 4 weeks post op IF incisions are completely healed: avoid breast stroke, treading water, scissor kick/ motion. Ok to begin gentle freestyle and deep water jog at 5-6 weeks post op Lifting: Nothing greater than a gallon of milk until next office visit Weight Bearing: Progressive starting - use 2 crutches for minimum 2-3 days working up to 50 % weight bearing then if able to comfortably bear more than 50% weight transition to 1 crutch or cane for at least 3 days - full weight bearing as tolerated day 3. Then cane/ crutch as needed. Avoid limping Driving: Once you have good leg control and are able to safely and confidently move from gas to break and slam on brake if necessary to protect yourself and others. Follow-up: 4 weeks Aida Madden MS, GIBSON documented in this encounter [facility] 01-16-2022 History of Presen t illness Narrative Episode Visit Count: 2 Therapist That Will Oversee The Plan Of Care: Salas Sherman Start of Care Date: 01/10/22 Onset Date: 01/09/22 REHABILITATION AND SPORTS THERAPY PHYSICAL THERAPY TREATMENT NOTE ASSESSMENT: Greyson Mcrae Buchwalter tolerated the session with decreased symptoms and no issues. She demonstrated improvements in tolerance for PROM and HEP. The patient will continue to benefit from ongoing skilled physical therapy to progress toward set goals. PLAN FOR NEXT VISIT: continue per protocol SUBJECTIVE: Patient Reason for Visit: Pt doing wlel today. exercises have been going well at home and getting easier. Pt with minimal pain/discomfort over the weekend. She will be going to [place] this weekend but her daughter will be there to be able to continue the exercises with her Pain: Pain Pain Level: 1 Pain Location: Hip - Right Description: Sore;Aching Frequency: Intermittent OBJECTIVE MEASURES WITH LEVEL OF FUNCTION: Less muscle guarding noted today TREATMENT: Therapeutic Exercise: 1: Lying prone on belly 5 min (reviewed with pt's exercises, form, and ROM restrictions at this time) 2: PROM circumduction 3x20 cw/ccw 3: PROM hip flexion to 90 degrees max 3x20 4: PROM hip abduction to 25 degrees max 3x20 5: PROM IR log roll 3x20 6: PROM hip ER in <70 degrees flexion 3x20 7: Quad sets 3x20 8: Glute sets 3x20 9: Abdominal sets 3x20 10: Hip abduction/adduction isometrics 3x20 11: Ankle pumps 6x20 each while resting between various exercises today Skilled Intervention: Patient was educated in proper exercise technique and purpose for exercises. Skilled judgment was provided in selection of appropriate interventions. Correct performance of therapeutic exercises was facilitated with verbal, visual and tactile cuing. Patient education as noted. Billing Therapeutic Exercise Treatment Minutes: 40 Total Treatment Time Minutes (timed/untimed): 40 Salas Sherman PT documented in this encounter [facility] 01-13-2022 History of Presen t illness Narrative LVM with patient on the phone regarding their surgery on 01-09-22 - Procedure - Right hip arthroscopy - labral repair Patient is 4 days post op. Advised patient I was reaching out to them to see how they were feeling post op. Post op PT - went to PT on 01-10 and next appointment is 01-15 Medication - Patient has first follow up appointment scheduled with Aida Madden on 01-21-22 All questions answered today. Will contact office with any questions, MyChart or phone. Wily Zavaleta MEd, AT, ATC documented in this encounter [facility] 01-10-2022 History of Presen t illness Narrative Episode Visit Count: 1 Therapist That Will Oversee The Plan Of Care: Salas Sherman Start of Care Date: 01/10/22 Onset Date: 01/09/22 Patient Identified by Name and Date of : Yes REHABILITATION AND SPORTS THERAPY PHYSICAL THERAPY EVALUATION PLAN OF CARE: Assessment: Greyson Rojas presents with diagnosis of R hip albral repair that interferes with walking;walking in the house;bending;heavy exertion;lifting;physical activities;recreational activities;running;squatting;slee ping . She presents with impairments in ADL's, balance, gait, range of motion, soft tissue healing, strength , symptom management, tissue tenderness and wound healing. PROMIS (Patient-Reported Outcomes Measurement Information System) scores were reviewed and physical function domain identified as a rehabilitation concern. Prognosis for therapy is Good due to: current objective clinical presentation;good overall health status;acuteness of condition;positive past response to therapy;within-session changes;good support system/ coping skills . She will benefit from skilled therapy services to meet the goals established for this plan of care as noted below. Goals for Episode of Care: created on 01/10/22 through 04/12/22 [place] in home exercise program. Patient will decrease pain rating by 2 points to meet minimal clinical important difference for numeric pain rating scale. Patient will increase active ROM of R hip to = L to allow pt to to improve performance of ADLs and to improve gait mechanics / gait pattern . Patient will demonstrate increase in R hip strength to 5/5 during manual muscle testing in order to improve function for basic self-care tasks, home management tasks, leisure / recreation skills, light functional tasks, moderate to heavy functional tasks, prior functional tasks and work tasks. Perform ADLs and self care tasks with decreased report of symptoms/pain in 4-6 weeks. Perform walking without pain. Normal gait. Reciprocal stair negotiation. Patient Goals: get back to PLOF with recreational activities Planned Interventions, Frequency, and Duration: Current Frequency: 2x/week Duration: 12 weeks Total Number of Visits Planned: 24 Planned Treatment Interventions: Therapeutic exercise (09242);Neuromuscular re-education (38050);Manual therapy (92254);Therapeutic activities (91073);Self-group home management (24698);Gait Training (88127);Patient/Family/Caregiver Education;Body Mechanics Training PLAN FOR NEXT VISIT: Continue per protocol Patient demonstrates good understanding of plan of care and treatment. The above goals and plan of care were discussed and agreed upon by patient/family. SUBJECTIVE: Greyson Rojas is a 51 year old female seen today for R hip albral repair 01/09/2022 Patient Goals: get back to PLOF with recreational activities Functional Limitations: walking;walking in the house;bending;heavy exertion;lifting;physical activities;recreational activities;running;squatting;slee ping Prior Level of Function: Independent without limitations Intake Information: Prescription present Previous Treatment: Physical Therapy Pain: Pain Pain Level: 4 Pain Location: Hip - Right Description: Sore;Aching Frequency: Intermittent Post Treatment Pain Post Treatment Pain Level: No Change PROMIS Scales Higher is Better 10/13/2021 11/17/2021 01/08/2022 Phys Func - Score 49 (within normal limits) 47 (within normal limits) 29 (severe dysfunction) Phys Func - Percentile 46 % 38 % 2 % Social Roles - Score 52 (within normal limits) 50 (within normal limits) 52 (within normal limits) Social Role - Percentile 58 % 50 % 58 % GH Physical - Score 44.9 (Good) - 42.3 (Good) GH Physical - Percentile 31 % - 22 % GH Mental - Score 48.3 (Very Good) - 67.6 (Excellent) GH Mental - Percentile 43 % - 96 % Self-Eff Symptom - Score 50 (Average) 48 (Average) 50 (Average) Self-Eff Symptom - Percentile 50 % 42 % 50 % T-scores: mean of general population = 50. 5 points is clinically meaningfully difference Percentiles provide an indication of how the patient's score ranks in relation to the general population. Higher percentile rankings indicate better function/quality of life. 50th percentile is the average of the general population and indicates half of respondents had a worse score. Lower is Better 10/13/2021 11/17/2021 01/08/2022 Fatigue - Score 51 (within normal limits) 45 (within normal limits) 45 (within normal limits) Fatigue - Percentile 46 % 69 % 69 % T-scores: mean of general population = 50. 5 points is clinically meaningfully difference Percentiles provide an indication of how the patient's score ranks in relation to the general population. Higher percentile rankings indicate better function/quality of life. 50th percentile is the average of the general population and indicates half of respondents had a worse score. OBJECTIVE MEASURES WITH LEVEL OF FUNCTION: LE PROM R Hip Extension: 0 Degrees R Hip Flexion: 90 Degrees R Hip ABduction: 25 Degrees R Hip ADduction: -10 Degrees LE Strength R LE Strength: Unable to assess due to acuity of surgery Gait Weight Bearing Status: TTWB Gait: Independent Gait Device: Crutches Brace/Orthotics: Hip labral brace Education: Education Learning/educational needs: Procedure / Surgery;Home exercise program;Plan of Care;Changes in Plan of Care;Posture;Gait Training;Crutch Training;Body Mechanics TREATMENT: PT Treatment Interventions: Therapeutic Exercise;Self-Penitentiary Management Evaluation Therapeutic Exercise: 1: *Lying prone on belly 5-20 min, 7-8x/day (instructed ~ 2 hours total) 2: *PROM circumduction 3x20 cw/ccw 3: *PROM hip flexion to 90 degrees max 3x20 4: *PROM hip abduction to 25 degrees max 3x20 5: *PROM IR log roll 3x20 6: *PROM hip ER in <70 degrees flexion 3x20 7: *Quad sets 3x20 8: *Glute sets 3x20 9: *Abdominal sets 3x20 10: *Hip abduction/adduction isometrics 3x20 11: *Ankle pumps 8x20 Skilled Intervention: Patient was educated in proper exercise technique and purpose for exercises. Skilled judgment was provided in selection of appropriate interventions. Provided written instruction for home exercise program to facilitate proper performance and compliance. Correct performance of therapeutic exercises was facilitated with verbal, visual and tactile cuing. Educated patient on rationale for performing exercises in regards to ROM and function . Patient education as noted. Helped patient's perform PROM exercises for home with proper cuing and assistance Self-Penitentiary Management: 1: Significant time spent reviewing surgical precautions and contraindications, WB status, progression of Wb status and exercises, and specific motions to avoid/how to help avoid them (IE sleeping, pillow bewtween her knees) Skilled Intervention: Skilled judgment in the selection of proper modification for activity of daily living/home management based on clinical presentation, deficits, and needs. Reviewed patient specific diagnosis in relation to activities of daily living/home management. Activity progression based on professional judgement. Billing * Evaluation Low Complexity: 1 Unit Therapeutic Exercise Treatment Minutes: 25 Self-Care/Home Management Treatment Minutes: 20 Total Treatment Time Minutes (timed/untimed): 60 Salas Sherman PT documented in this encounter [facility] 01-09-2022 Note HNO ID: [id number] Author: Phyllis Simental APRN.CRNA Service: ? Author Type: Nurse Section Supervisor Type: Anesthesia Procedure Notes Filed: 01/09/2022 10:38 AM Note Text: ANESTHESIOLOGY PROCEDURE NOTE Airway General Information Procedure Start Time/Medication Administration: 01/09/2022 9:47 AM Patient location during procedure: OR Timeout Performed Pre-procedure: timeout performed Consent Obtained: Yes Patient identity confirmed: arm band and patient Staffing Performed by: LUIS Indications and Patient Condition Preoxygenated: yes Difficult Mask: No Indications for airway management: anesthesia anesthesia circuit Method: sleep Final Airway Details Final airway type: endotracheal airway Final Endotracheal Airway: ETT Cuffed: yes Successful intubation technique: direct laryngoscopy Devices used: intubating stylet Endotracheal tube insertion site: oral Blade: Isma Blade size: #3 ETT size (mm): 7.0 Measured from: lips Measurement (cm): 22 Placement verified by: chest auscultation and capnometry Cormack-Lehane Classification: grade IIa - partial view of glottis Number of attempts at approach: 1 Airway not difficult SIGNATURE: Phyllis Simental APRN.CODE ENFORCEMENT INSPECTOR PATIENT NAME: Greyson Rojas DATE: January 09, 2022 TIME: 10:09 AM CSN: [id number] [facility] 01-09-2022 History of Presen t illness Narrative Radiology Service Progress Note PATIENT NAME: Greyson Rojas DATE OF SERVICE: January 09, 2022 TIME: 7:43 AM PATIENT IDENTITY VERIFICATION COMPLETED USING TWO (2) IDENTIFIERS: Name and Date of confirmed by patient verbally. FALL SCREENING: Has the patient had 2 falls in the last year or 1 fall with injury or currently using an Ambulatory Assistive Device (Walker, Cane, Wheelchair, Crutches, etc.)? No PATIENT GENDER DATA: Female. status: : No status: NO. PATIENT RELEVANT IMPLANT DATA REVIEWED: Not Applicable RADIOLOGY DEPARTMENT: General X-ray: Exam(s) Completed: Pelvis X-Ray: Pelvis with Hip Right PERIPHERAL IV DATA: Not applicable SIGNED BY: RT Mary(R) January 09, 2022 7:43 AM documented in this encounter [facility] 01-03-2022 Instructions Aida Madden PA-C - 01/03/2022 9:09 AM EDT Images from the original note were not included. Please review post op instructions below in preparation for your right hip scope 01/09/22. You will receive an updated copy upon discharge the day of surgery. Please contact our office with questions Post op prescriptions will be sent to [facility] for product picker 01/07 or 01/08. Please report to XR- 1st floor on arrival 01/09 for updated XR prior to reporting to 2nd floor check in HOME INSTRUCTIONS Hip Arthroscopy The following instructions will help you know what to expect in the days following your surgery. Please call if you have any questions or concerns. Activity Rest as much as possible the first day or so after surgery. You MUST have ASSISTANCE when GETTING UP or ambulating/ WALKING including using the bathroom for 24 HOURS after surgery WEIGHT BEARING: Flat Foot Touch Down Weight Bearing (about 20 lbs on operative leg) with CRUTCHES until first post op visit - (foot in contact with ground heel-toe gait) BRACE: wear for 2 weeks. Remove for showering, toileting, PT (physical therapy) and to lay on your stomach. Must have brace on when up and moving about and sleeping. o You can sleep in any position comfortable in the brace. If laying flat your back place a pillow under your leg. If laying on your side place a pillow or 2 between your knees to support you leg and prevent the brace from pulling on your leg. Brace will hold the hip abducted (away from your body) and limit hip flexion (bending) and extension (straightening). The brace should fit snug at your waist and thigh. If gaps it is likely your leg is not abducted enough. MOTION RESTRICTIONS: o Place a blanket or pillow under your thigh/ knees when lying flat for [address] a pillow or 2 between your knees if laying on your side o No HIP FLEXION (bending hip) past 90 degrees x 2 weeks OK to sit on toilet and put shoes on as tolerated you may have to slouch or lean back o No CROSSING your leg past midline/ belly button (hip aDduction) o No Turning your foot out with your leg straight x 3 weeks o No ABduction (bringing your hip away from you body past your shoulders) x 3 weeks PASSIVE MOTION EXERCISES: START DAY AFTER SURGERY - 150 reps each 3 times a day. - for 3-6 weeks post op o (family/friend moves hip with your muscles completely relaxed) o circumduction lying down (circles clockwise and counter clock hart not past midline/ belly button or shoulder width) o hip flexion (bending) 30-70 degrees You will be given additional Passive Motion Exercises to perform at home at your 1st Physical Therapy visit Lay on your stomach with brace off - GOAL 2 hours per day - you can break this up into smaller sessions during the day - this will stretch the front of your hip/ thigh - START DAY AFTER SURGERY Perform Ankle Pumps (plantar/dorsiflexion), Quad sets (with leg straight tighten thigh muscle for 3-5 ct hold), Isometric gluteal sets (tighten buttocks muscle for 3-5 ct hold), Lower Trunk Transverse abdominal isometric stabilization (draw belly button toward spine w/o moving pelvis, 3-5 ct hold) START DAY AFTER SURGERY o You will be given additional or different home exercises to perform at Physical Therapy visits No lifting, carrying, pushing or pulling anything weighing more than a gallon of milk Elevate your leg to help with pain and swelling. Lay flat on your back and place 2-3 pillows under you leg/ calf for 15 to 20 minutes - 3-4 sessions a day ICE: ICEMAN COOLING PAD - for pain and swelling Ice pad should not be in direct contact with your skin. Apply for up to 30 minutes every 2 hours. Use routinely for the 1st 48 hours then as needed for pain and swelling. Minimize your risk of developing DVT/ blood clot: o Compression Stockings: wear for the first 2 weeks after surgery, remove to shower and for cleaning (hand wash, air dry) o Switch to knee high stocking once dressing removed. Once dressing removed optional to wear at night while sleeping o Early mobilization (up walking for 10 mins. every few hours while awake) o DO NOT stay in bed, you are to be up walking as tolerated. Physical Therapy: Start TOMORROW or within the next few days. Driving: once off narcotic pain medication and muscle relaxant, finished wearing brace, off crutches and good leg control Wound Care o Keep operative dressing clean, dry and intact. o Take dressing/ bandage off 3 days after surgery o Leave the Steri-strips (small white tapes across the incisions) in place. o If no steri-strips or they come off with dressing cover incisions with a regular band aid. o Keep incisons clean and dry. o Do not apply lotions or ointments to incisions o Look at the wounds/ incision sites for increase redness/inflammation, drainage, foul odor Showering: once the dressing has been removed. You must keep the incisions covered and dry. Suggestions: water proof band aid, plastic wrap, press and seal (remove after showering). DO NOT GET the INCISIONS WET. Stitches will be removed at your 1st post op appointment, approximately 2 weeks after surgery. Medications - Take with food as these medications can cause nausea. Pain : Recommend alternating acetaminophen (tylenol) and methocarbamol (muscle relaxant) every 4 hours for 2 to 3 days then use as needed. Do NOT take HYDROcodone-acetaminophen and Methocarbamol at the same time allow at least 2 hours between doses acetaminophen (Tylenol) 500 mg: Take 1 tablets every 6 hours as needed for pain o Max of 4000 mg a day for up to 5 days then Max 3000 mg a day HYDROcodone 5/325 mg: Take 1 every 6 hours as needed for severe pain. Take at the same time as acetaminophen Muscle Relaxant: Methocarbamol (Robaxin) 500 mg Take 1-2 tablet(s) up to 4 times daily (every 6 hours) as needed for muscle spasms (grabbing, pulling, stretching, sharp pain). o No driving while taking opiod/narcotic medication or muscle relaxant o Do not take Tramadol or any other opioid/narcotic pain medication or muscle relaxant while taking prescription pain medication and/or muscle relaxant Naproxen 500 mg: Take 1 tablet TWICE daily with food for 3 WEEKS to minimize the risk of Heterotopic Ossification (scar bone formation) o Start the evening of surgery or the morning after o TAKE consistently UNTIL PRESCRIPTION IS FINISHED - this is to help decrease the risk scar bone from forming where pinching bone was removed and to minimize scar tissue. Do not take NSAIDS if you have a history of kidney, liver or stomach ulcer disease or if you have a bleeding disorder or are taking Celebrex or blood thinning medications. STOP TAKING IF YOU DEVELOP STOMACH UPSET, WEIGHT GAIN, HEADACHE or sustained INCREASED BLOOD PRESSURE or other issues - alert the office DO NOT TAKE ANY OTHER ANTI-INFLAMMATORY MEDICATION WHILE TAKING NAPROXEN Age 40 and over: Aspirin 81 mg: Take 1 tablet daily with food for 3 weeks to minimize the risk of developing a DVT/ blood clot. o Start the day after surgery o STOP THE ASPIRIN if you have any stomach irritation, blood in your stool, or start vomiting blood, call the office or proceed to local emergency room. o If you cut yourself, apply pressure for a full 5 mins, if the bleed does not subside, proceed to your local emergency room. Anti Nausea & Vomiting: Ondansetron (Zofran) 4 mg disintegrating tablet: Take 1 tablet every 8 hours as needed for nausea/ vomiting Stool Softener: Over the Counter - Ducosate Sodium or MiraLax as needed to prevent constipation while taking HYDROcodone Call your PHYSICIAN for: Calf pain or unusual swelling in your leg. Persistent or heavy bleeding Unusual odor, increased redness/inflammation or drainage from incision Increasing or progressing drainage from incision or surgery area increased pain unrelieved by rest, ice or medication fever (greater than 100.4 degrees) Any shortness of breath, chest pain or abnormal coughing Severe nausea and vomiting > 24 hours Follow up - Stitches will be removed at your first post op visit Future Appointments Date Time Provider Department Center 01/10/2022 2:30 PM Salas Sherman PT [facility] [place] 01/21/2022 10:00 AM GIBSON Dawson 2022 9:00 AM DO DASHAWN Guevara [facility] 02/21/2022 9:20 AM GIBSON Dawson 03/18/2022 9:15 AM Claire Chaney MD [facility] 04/02/2022 1:45 PM [facility] 04/14/2022 2:30 PM Olya Brar MD [facility] Do not hesitate to call if you have any questions or concerns. Dr Paige's Office [phone] After hours call: [phone] (ask for the orthopaedic resident engineering professionals) documented in this encounter [facility] 01-03-2022 History of Presen t illness Narrative AMBULATORY TELEPHONE VISIT Greyson Rojas has consented to this telephone encounter. Persons Present: patient Chief Complaint/Reason: Pre op HPI: 51 year old, female scheduled for right hip scope with Dr Paige 01/09/22 at [facility]. Discussion to ensure optimized for surgery Data Reviewed: Procedure: verified - questions answered Consent: in EPIC - not signed Imaging: XR am 01/06 on arrival - order active MRI EPIC - labral tear PACC: 12/16 Brace fitting: complete 01/02/22 Crutches:Fit 01/02/22 with Kaitlin Reviewed - flat foot touchdown weight bearing status Medical considerations - anemic Medication: instructed to continue iron supplement Current Anticoagulation medications: none Pharmacy/ scripts: Send to [facility] for product picker 6/7 or 6/8 Post op PT - scheduled at [facility] Post op Appts x 3 scheduled Assessment: S73.191D Tear of right acetabular labrum, subsequent encounter (primary encounter diagnosis) Right hips scope with Dr Paige 01/09 at [facility] [place] Post op RXs to [facility] for product picker 6/7 or 8 PT [place] Post op follow up 01/21 Total Time Spent: 7 minutes Aida Madden PA-C documented in this encounter [facility] 01-01-2022 Miscellaneous Notes The following approved medication requests have been transmitted electronically. Signed Prescriptions Disp Refills omeprazole (PRILOSEC) 20 mg capsule 90 capsule 3 Sig: Take 1 capsule by mouth once daily. TOÑITO: No Izabella Sanchez APRN.CNP documented in this encounter [facility] 12-27-2021 History of Presen t illness Narrative Unable to reach patient by phone. Visit will be rescheduled. Aida Madden PA-C documented in this encounter [facility] 12-19-2021 Instructions Paige Sylvester APRN.CNP - 12/19/2021 4:17 PM EDT Once stool sample resume PPI omeprazole 20mg daily on empty stomach wait 30 min before eating. Avoid NSAIDs (such as Advil, Ibuprofen, Excedrin, Mobic), tobacco, alcohol, carbonated beverages, caffeine, chocolate, tomato based sauces, spicy/fatty foods, and peppermint Avoid eating large meals. Avoid eating less than 3 hours before bed. Weight loss. Elevate the head of the bed 6 inches, or at least invest in a wedge pillow. Follow up in 6 months documented in this encounter [facility] 12-19-2021 History of Presen t illness Narrative CHIEF COMPLAINT: Patient presents with: Procedure Follow Up: EGD 11/05/21 H Pylori Last Colonoscopy 03/01/2018:Impression: The entire examined colon is normal. No specimens collected. Repeat colonoscopy in 5 years for surveillance.Family history of colorectal cancer in multiple 2nd degree relatives With colon cancer. ESTEBAN Rojas is a 51 year old female here today for Impression: - Normal mucosa was found in the proximal esophagus. Biopsied. - Normal mucosa was found in the distal esophagus. Biopsied. - Small hiatal hernia. - Normal mucosa was found in the entire stomach. Biopsied. - Normal mucosa was found in the second portion of the duodenum. Biopsied. FINAL DIAGNOSIS A. Duodenum, biopsy: - Duodenal mucosa with no significant pathologic abnormality. B. Stomach, biopsy: - Chronic active gastritis with Helicobacter organisms. C. Distal esophagus, biopsy: - Squamous mucosa with no significant pathologic abnormality. D. Proximal esophagus, biopsy: - Squamous mucosa with no significant pathologic abnormality Patient was treated for H pylori - she has not turn in her H pylori stool study to check for eradication she will be doing this. She feels better but still having some symptoms. She reports she is coughing at night, she reports the feeling scratching throat or choking with solids. Reports nausea in the morning and when her stomach is empty. Denies heartburn denies acid reflux. She reports the bloating has been better - she is still having burping - voice change when she eats certain things or smells something that has a strong odor. She is going to be worked up for possible asthma induced symptoms She reports benefiber has helped regulate her stools Last OV 11/01/2021 : HPI: Patient present today for 3 years of symptoms of voice changes, cough which started since this past fall - She would noticed the cough at night and after eating. She reports choking on solids. Denies burning in her throat or stomach no regurgitation of food. Denies vomiting reports of nausea at times when she eats or smell a trigger food. She went to [employer] this past week and noticed her tongue was burning after eating garlic bread sticks and chicken Parmesan, avoided onions on salad but still thinks onion salt is in the salad dressing. She has noticed voice changes with even the smell of onions or superintendent sanitation. She noticed eating nuts will cause choking and coughing. Mushrooms has caused voice change as will. If she smells her symptoms will last 30min but if she eats the trigger foods her symptoms will last hours. She has seen ENT Also seen for allergy testing which came back normal. This past summer she was tested for garlic and onion and that came back normal Recently started on omeprazole 20mg - she reports this has improved coughing and dryness in her throat. Current Outpatient Medications Medication Sig Lactobacillus acidophilus (PROBIOTIC ORAL) Take by mouth. Ascorbic Acid 500 mg cpER Take by mouth. cholecalciferol (VITAMIN D3) 1,000 unit tab tablet Take by mouth. docusate sodium (COLACE) 100 mg capsule Take by mouth. turmeric-turmeric root extract 450-50 mg cap Take by mouth. venlafaxine ER (EFFEXOR XR) 37.5 mg 24 hr capsule TAKE 1 CAPSULE ONCE DAILY tamoxifen (NOLVADEX) 20 mg tablet Take 1 tablet (20 mg) by mouth once daily. mecobalamin (B12 ACTIVE ORAL) Take 1 tablet by mouth once daily. triamcinolone acetonide (NASACORT) 55 mcg nasal inhaler Use 2 Sprays in the nose once daily. IRON, FERROUS SULFATE, ORAL Take by mouth once daily. CALCIUM CARBONATE/VITAMIN D3 (VITAMIN D-3 ORAL) Take by mouth twice daily. Evening [place] Oil (EVENING PRIMROSE) 500 mg cap Take 500 mg by mouth once daily. omeprazole (PRILOSEC) 20 mg capsule Take 1 capsule by mouth once daily. No current facility-administered medications for this visit. ALLERGIES Allergen Reactions Penicillins Hives Other reaction(s): hives all over body Social History Tobacco Use Smoking status: Never Smoker Smokeless tobacco: Never Used Vaping Use Vaping Use: Never used Substance Use Topics Alcohol use: No Drug use: No PAST MEDICAL HISTORY Diagnosis Date Anemia, unspecified iron deficiency Breast cancer (HCC) Breast mass 06/2017 right breast Diffuse cystic mastopathy Helicobacter pylori infection Hiatal hernia Major depressive disorder, single episode, unspecified 1999 depressed year after 3rd child: treated for 1 year with Zoloft Meniere disease Dr. Marie ENT Panic disorder without agoraphobia periodic symptoms PAST SURGICAL HISTORY Procedure Laterality Date BX BREAST W/DEVICE 1ST LESION ULTRASOUND GUID Right 06/12/2017 3 nodules; 5cm, 3cm, 3cm COLONOSCOPY FLX DX W/COLLJ SPEC WHEN PFRMD 03/01/2018 Colonoscopy EGD N/A 11/05/2021 FOOT SURGERY HX Left 1981 Arch reshaping LAPAROSCOPIC SALPING/OOPHORECTOMY Right 02/24/2019 Dr. Jasmin Sosa MASTECTOMY, SIMPLE, COMPLETE Bilateral 08/18/2017 Dr. Johnson (reconstruction), Dr. 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 S[facility] TOTAL ABD HYSTERECTOMY+BLAD REPR N/A left ovary removed; Dr. Sosa-[facility]- total hysterectomy with rectocele and bladder sling FAMILY HISTORY Problem Relation Age of Onset Cancer Mother melanoma Hypertension Mother Lipids Mother Breast Cancer Mother 63 Diabetes Mother Arthritis Father Lipids Father High Triglycerides Heart Father ICD/pacer, CHF/s/p [place] Diabetes Father Colon Cancer Paternal Grandmother Cancer Paternal Grandfather HCC-EtOH abuse Heart Maternal Uncle enlarged heart: cardiomyopathy Hypertension Brother Diabetes Sister Lipids Sister Ischemic Heart Disease Maternal Uncle Breast Cancer Other 49 maternal cousin (mothers-brothers child) REVIEW OF SYSTEMS Review of Systems HENT: Positive for voice change. Respiratory: Positive for cough and choking. Gastrointestinal: Positive for nausea. All other systems reviewed and are negative. PHYSICAL EXAM BP 104/68 Pulse 83 Ht 5' 3 (1.60m) Wt 124 lb (56.2kg) LMP 06/08/2020 BMI 21.97 kg/(m^2). Physical Exam Constitutional: Appearance: Normal appearance. She is normal weight. HENT: Head: Normocephalic and atraumatic. Eyes: Extraocular Movements: Extraocular movements intact. Pupils: Pupils are equal, round, and reactive to light. Cardiovascular: Rate and Rhythm: Normal rate and regular rhythm. Pulses: Normal pulses. Heart sounds: Normal heart sounds. Pulmonary: Effort: Pulmonary effort is normal. Breath sounds: Normal breath sounds. Abdominal: General: Abdomen is flat. Bowel sounds are normal. Palpations: Abdomen is soft. Musculoskeletal: General: Normal range of motion. Cervical back: Normal range of motion and neck supple. Skin: General: Skin is warm and dry. Neurological: General: No focal deficit present. Mental Status: She is alert and oriented to person, place, and time. Psychiatric: Mood and Affect: Mood normal. Behavior: Behavior normal. ASSESSMENT: Gastroesophageal reflux disease, unspecified whether esophagitis present (primary encounter diagnosis) PLAN: Assessment/Plan (K21.9) Gastroesophageal reflux disease, unspecified whether esophagitis present (primary encounter diagnosis) 1. Gastroesophageal reflux disease, unspecified whether esophagitis present - omeprazole (PRILOSEC) 20 mg capsule; Take 1 capsule by mouth once daily. Dispense: 30 capsule; Refill: 1 Follow up in office 3 months/PRN. Recommended to please call office/go to ER if fever, chills, chest pain, SOB, diarrhea, nausea, emesis, worsening abdominal pain, dehydration occurs I spent a total of 30 minutes on the date of the service which included preparing to see the patient, [id number] patient care, completing clinical documentation, obtaining and/or reviewing separately obtained history, performing a medically appropriate examination, counseling and educating the patient/family/caregiver, ordering medications, tests, or procedures, communicating with other HCPs (not separately reported), independently interpreting results (not separately reported), communicating results to the patient/family/caregiver, and care coordination (not separately reported). Paige Sylvester APRN.FAHEEM DATE: 12/19/21 TIME: 10:20 AM documented in this encounter [facility] 12-17-2021 Miscellaneous Notes Pt. returned call. Below instructions relayed to pt. Pt. verbalized understanding. Li Castro RN Called patient, no answer. Left message.. Tyler Waldron LPN I would like her to hold 2 weeks prior to surgery and restart 1 week after surgery. Olya Brar MD Pt is scheduled at [facility] 01/09/2022 for ARTHROSCOPY HIP W/ LABRAL REPAIR With Dr. Paige. She is currently taking Tamoxifen. Is there any hold time recommendations you would like pt to follow for surgery? documented in this encounter [facility] 12-17-2021 History of Presen t illness Narrative Episode Visit Count: 6 Therapist That Will Oversee The Plan Of Care: Jasmin Yeung Start of Care Date: 10/15/21 Onset Date: 10/19/20 Patient Identified by Name and Date of : Yes REHABILITATION AND SPORTS THERAPY PHYSICAL THERAPY DISCONTINUANCE OF CARE PLAN OF CARE UPDATE: Assessment: Greyson Rojas is discontinued from Physical Therapy services due to maximal benefit. and Patient/Clinician mutual decision to discontinue current plan of care.. Patient was seen for 6 visits from Start of Care Date: 10/15/21 to 12/17/2021 and treatment included: Therapeutic exercise, Manual therapy and Self-group home management. Goals for Episode of Care: created on 10/15/21 Updated on: 11/19/2021, 12/17/2021 Incontinence: Patient to demonstrate independence with HEP-MET Patient to demonstrate less leaks with urge-MET Patient reports urgency is experienced less than baseline / initial Evaluation-MET Patient demonstrates ability to perform diaphragmatic breathing / Relaxation-MET Patient reports at least 75% improvement in fecal incontinence compared to Baseline-MET Pelvic Pain: Patient reports painfree intercourse-NOT MET Patient displays decreased muscle spasms in pelvic floor to allow for decreased pain levels-PROGRESSING Patient displays improved muscle dynamics of pelvic floor including ability to lengthen-MET Patient Goals: improve pain SUBJECTIVE: Patient Reason for Visit: Pt reports increased R hip pain after gardening. Pt reports continued R sided pelvic pain with intercourse. Pt reports not using dilators, plans on trying them after hip surgery if pelvic pain continues. Pt reports good compliance with HEP. Pt reports no bladder or bowel concerns. Pt reports wanting to continue HEP on her own at home and focus more on her upcoming hip surgery and rehab, will reach out after hip rehab if pelvic concerns continue. Pain: Pain Pain Level: 3 Pain Location: Hip - Right Description: Aching;Tightness Frequency: Intermittent Post Treatment Pain Post Treatment Pain Level: No Change PROMIS Scales Higher is Better 01/09/2021 10/13/2021 11/17/2021 Phys Func - Score - 49 (within normal limits) 47 (within normal limits) Phys Func - Percentile - 46 % 38 % Social Roles - Score - 52 (within normal limits) 50 (within normal limits) Social Role - Percentile - 58 % 50 % GH Physical - Score 50.8 (Very Good) 44.9 (Good) - GH Physical - Percentile 53 % 31 % - GH Mental - Score 62.5 (Excellent) 48.3 (Very Good) - GH Mental - Percentile 89 % 43 % - Self-Eff Symptom - Score - 50 (Average) 48 (Average) Self-Eff Symptom - Percentile - 50 % 42 % T-scores: mean of general population = 50. 5 points is clinically meaningfully difference Percentiles provide an indication of how the patient's score ranks in relation to the general population. Higher percentile rankings indicate better function/quality of life. 50th percentile is the average of the general population and indicates half of respondents had a worse score. Lower is Better 10/13/2021 11/17/2021 Fatigue - Score 51 (within normal limits) 45 (within normal limits) Fatigue - Percentile 46 % 69 % T-scores: mean of general population = 50. 5 points is clinically meaningfully difference Percentiles provide an indication of how the patient's score ranks in relation to the general population. Higher percentile rankings indicate better function/quality of life. 50th percentile is the average of the general population and indicates half of respondents had a worse score. OBJECTIVE MEASURES WITH LEVEL OF FUNCTION: Pelvic Floor Pain with penetration: Deep and superficial (R sided) Pelvic Floor Muscle Assessment Consent for pelvic assessment/testing and treatment: Patient was educated regarding pelvic floor physical therapy assessment/treatment which may include pelvic floor and girdle muscle assessment externally or internally (vaginal or rectal approach).;Patient verbalized consent for the above treatment approaches today. Patient understands they have control of the treatment and an opportunity to stop treatment at any time. Range of Motion: Normal Ability to Lengthen pelvic floor: Yes Pelvic Floor Manual Assessment External Pelvic Region Tenderness/ Hyperactivity - Lower Extremity: Glut medius;Adductor Glut medius: Bilateral (2/2, R>L) Adductor: Bilateral (/) Pelvic Floor Tenderness/Hyperactivity: Tested Vaginally in Tested Vaginally in : Supine/hooklying Superficial transverse perineal: Right (08/03) Deep transverse perineal: Right (08/03) Iliococcygeus: Right (08/03) Obturator internus: Right (08/03) Pubococcygeus: Right (08/03) Tissue Restriction/Tenderness Scale: 1= mild, 2= moderate, 3= severe TREATMENT: Manual Therapy: 1: Reassessment 2: Gentle stretching to B pelvic floor, supine 3: MFR to B adductors, supine 4: MFR to B gluteals, sidelying 5: Discussed discharge planning Skilled Intervention: Manual skills to improve joint mobility, ROM, and decrease pain. Utilized anatomy knowledge of the therapist, and assessment of patient's response to intervention. Billing Manual TherapyTreatment Minutes: 42 Total Treatment Time Minutes (timed/untimed): 42 Jasmin Yeung PT documented in this encounter [facility] 12-16-2021 Instructions Jessica Arenas APRN.CUSTOMER SALES SPECIALIST - 12/16/2021 4:09 PM EDT PATIENT PREOPERATIVE INSTRUCTIONS Self has scheduled you for your procedure at this surgery center: [facility]: [phone] --[phone] [address]. Please read below carefully for your personalized instructions. Dietary Restrictions: - No solid food after midnight. - You may have 12 ounces of clear liquids (water, clear juices such as apple juice or gatorade, carbonated beverages, clear tea, black coffee, jello) until 2 hours before scheduled arrival at facility. No red/purple coloring and no creamer/sugar Medications: Unless instructed differently below, stay on all of your medications until your surgery. Approved medications to take the morning of surgery with a sip of water: Effexor If you start any new medications after today's visit, please contact the surgeon's office. Blood Thinning Medications: - Stop NSAIDS (Ibuprofen, Advil, Aleve, Motrin, Celebrex, Mobic, etc.) 7 days before surgery, as directed by your surgeon. - Stop Aspirin 7 days before surgery, as directed by your surgeon. - Stop Vitamin E, ALL multi-vitamins, herbals and dietary supplements 7 days before surgery. - You may take Tylenol (Acetaminophen) or any of your pain medications that do not contain aspirin or NSAIDS as needed. Important Reminders: - If you use CPAP/BIPAP, bring the machine with you to the surgery center. - If you are prescribed inhalers for breathing, continue using them. - Candy, mints, and tobacco products are NOT permitted the morning of surgery. - Hearing aids, dentures and glasses may be worn the morning of surgery. - NO jewelry, body piercings, makeup, hairpins or contacts are to be worn the day of surgery. If you develop symptoms such as a fever, cold, or flu, or have other changes to your health within TWO DAYS of scheduled surgery or the morning of surgery, please contact the surgery center above. Personal Belongings: -Please have photo ID and insurance cards. -If you do not have a copy of advance directives on file with us, please bring a copy with you on the day of surgery. - Leave ALL valuables and money at home or with family members. For Outpatient Procedures: - YOU MUST HAVE A RESPONSIBLE DIRECTOR TAKE YOU HOME. A DIRECTOR OF GOVERNMENT SALES OR DIRECTOR MONEY CANNOT BE MADE A RESPONSIBLE DIRECTOR. - We recommend that a responsible person stays with you overnight to take care of you. - You cannot stay in a hotel alone after outpatient surgery. You will not be permitted to have your surgery, if you do not have someone to take care of you. Arrival Time for Surgery: - The Surgery Center or hospital where you are having surgery will call the afternoon before surgery (or Thursday for Thursday surgery) with a scheduled arrival time. - If you have not heard by 4 pm, please contact the surgery center above. Please be aware that emergency situations arise, which may delay or change your surgical time. If this happens, we will notify you as soon as possible and regret any inconvenience. If you already have an Advance Directive, please fax a copy to [phone] or email to for it to be added to your chart. If you do not have an Advance Directive, you can find the appropriate form and more information at [email or web address]. We recommend that you complete the Advance Directive form found on the website and bring it with you the day of your surgery. It can be witnessed and scanned into your chart that day. Jessica Arenas APRN.FAHEEM documented in this encounter [facility] 12-16-2021 History and physical note HISTORY AND PHYSICAL EXAMINATION SERVICE DATE: 12/16/2021 SERVICE TIME: 4:04 PM PRIMARY CARE PHYSICIAN: Gallo Sanches DO REASON FOR VISIT: Greyson Rojas is a 51 year old female who is scheduled for Procedure(s): ARTHROSCOPY HIP W/ LABRAL REPAIR (Right) at the request of Dr. Patel for consultation. My final recommendation will be communicated back to the requesting physician by way of shared medical record or letter. 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 Pylori Infection Gastroesophageal Reflux Disease With Esophagitis Without Hemorrhage Cough Hoarseness Toña (Iron Deficiency Anemia) Tear of Right Acetabular Labrum COVID-19 Immunization Status Overdue - COVID-19 VACCINE (1) Overdue - never done No completion, postpone, frequency change, or communication history exists for this topic. CHIEF COMPLAINT: Pre-op exam HPI: DB is a 51 yo seen for PAC due to scheduled above surgery because of right acetabular labrum tear. 12/06/2021 Dr. Paige This is a pleasant 51 year old female, who presents today with a chief complaint of right hip pain. Injury/ Trauma: Denies PAIN EVALUATION 12/06/2021 0847 Pain Level: 5 Description: Aching;Throbbing Duration Amount of Time: 4 Duration Units: Years Frequency: Continuous Intervention/Comfort measure: Medication Pain location: anterior, posterior and lateral Duration of pain/ symptoms: 4 years Frequency: intermittent Intensity: moderate Quality: sharp and aching She Reports nocturnal pain. She denies numbness, tingling, or electric shocks. She reports catching. 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 Neurological: No history of TIA's, stroke, SIGN MAINTENANCE tumor, impaired sensorium, hemiplegia, paraplegia or quadraplegia. No neurological symptoms or problems. Respiratory: No history of current cough or dyspnea, or pneumonia in the past 6 weeks. No history of respiratory/pulmonary symptoms or problems. Cardiovascular: No history of HTN requiring medication, no history of angina, CHF, VT, cardiac surgery or stents. Denies rest pain, gangrene or revascularization/amputation for PVD. No history of cardiovascular symptoms or problems. GI: +H. Pylori infection, tx 11/2021 Positive for: GERD (diet controlled) Negative for: abdominal pain, dysphagia, hepatitis, irritable bowel syndrome, inflammatory bowel disease, liver disease, nausea, pancreatitis, vomiting and ETOH >2 drinks/day. : No history of dysuria, frequency or incontinence, stones or chronic kidney disease. No difficulty urinating, nocturia > 1 time per night or hematuria. 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 Endocrine: No history of diabetes. Has not taken steroids within the past 30 days. No history of endocrinological symptoms or problems. Hematology: Positive for: anemia and iron deficiency anemia (on rx). Negative for: bruises/bleeds easily, transfusion of at least 4 units within 72 hours prior to surgery and chronic anti-coagulation/platelet meds. Oncology: +brerast cancer bilateral mastectomy, denies chemo or XRT, +immunotherapy Psych: Positive for: anxiety (on rx). Musculoskeletal: SEE HPI Positive for: joint pain (hips and knees). Skin: Negative for lesions, rash and itching. PAST MEDICAL HISTORY Diagnosis Date Anemia, unspecified iron deficiency Breast cancer (HCC) Breast mass 06/2017 right breast Diffuse cystic mastopathy Major depressive disorder, single episode, unspecified 1999 depressed year after 3rd child: treated for 1 year with Zoloft Meniere disease Dr. Marie ENT Panic disorder without agoraphobia periodic symptoms PAST SURGICAL HISTORY Procedure Laterality Date BX BREAST W/DEVICE 1ST LESION ULTRASOUND GUID Right 06/12/2017 3 nodules; 5cm, 3cm, 3cm COLONOSCOPY FLX DX W/COLLJ SPEC WHEN PFRMD 03/01/2018 Colonoscopy EGD N/A 11/05/2021 FOOT SURGERY HX Left 1981 Arch reshaping LAPAROSCOPIC SALPING/OOPHORECTOMY Right 02/24/2019 Dr. Jasmin Sosa MASTECTOMY, SIMPLE, COMPLETE Bilateral 08/18/2017 Dr. Johnson (reconstruction), Dr. 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 Sosa-[facility] TOTAL ABD HYSTERECTOMY+BLAD REPR N/A left ovary removed; Dr. Sosa-[facility]- total hysterectomy with rectocele and bladder sling FAMILY HISTORY Problem Relation Age of Onset Cancer Mother melanoma Hypertension Mother Lipids Mother Breast Cancer Mother 63 Diabetes Mother Arthritis Father Lipids Father High Triglycerides Heart Father ICD/pacer, CHF/s/p [place] Diabetes Father Colon Cancer Paternal Grandmother Cancer Paternal Grandfather HCC-EtOH abuse Heart Maternal Uncle enlarged heart: cardiomyopathy Hypertension Brother Diabetes Sister Lipids Sister Ischemic Heart Disease Maternal Uncle Breast Cancer Other 49 maternal cousin (mothers-brothers child) Social History Tobacco Use Smoking status: Never Smoker Smokeless tobacco: Never Used Vaping Use Vaping Use: Never used Substance Use Topics Alcohol use: No Drug use: No Prior to Admission medications as of 12/06/21 0850 Medication Sig Last Dose Taking Lactobacillus acidophilus (PROBIOTIC ORAL) Take by mouth. omeprazole (PRILOSEC) 20 mg capsule Take 1 capsule by mouth twice daily for 14 days. famotidine (PEPCID) 20 mg tablet Take 1 tablet by mouth twice daily. Ascorbic Acid 500 mg cpER Take by mouth. cholecalciferol (VITAMIN D3) 1,000 unit tab tablet Take by mouth. docusate sodium (COLACE) 100 mg capsule Take by mouth. polyethylene glycol 3350 (MIRALAX, GLYCOLAX) 17 gram/dose powder Take by mouth. turmeric-turmeric root extract 450-50 mg cap Take by mouth. omeprazole (PRILOSEC) 20 mg capsule Take 1 capsule by mouth daily before breakfast. 1/2 hr before meal. venlafaxine ER (EFFEXOR XR) 37.5 mg 24 hr capsule TAKE 1 CAPSULE ONCE DAILY tamoxifen (NOLVADEX) 20 mg tablet Take 1 tablet (20 mg) by mouth once daily. mecobalamin (B12 ACTIVE ORAL) Take 1 tablet by mouth once daily. triamcinolone acetonide (NASACORT) 55 mcg nasal inhaler Use 2 Sprays in the nose once daily. IRON, FERROUS SULFATE, ORAL Take by mouth once daily. CALCIUM CARBONATE/VITAMIN D3 (VITAMIN D-3 ORAL) Take by mouth twice daily. Evening [place] Oil (EVENING PRIMROSE) 500 mg cap Take 500 mg by mouth once daily. No medication comments found. ALLERGIES Allergen Reactions Penicillins Hives Other reaction(s): hives all over body Objective PHYSICAL EXAM: General: alert and oriented (x3) and healthy appearance. Pertinent negatives noted - not distressed. Skin: normal color, no rash or lesions. HEENT: EOM intact and pupils equal round. Pertinent negatives noted - no carotid bruit. Cardiovascular: regular rate and rhythm, normal S1 and S2, no rub, murmurs, or gallop. Respiratory: normal breath sounds, no wheezes or crackles. No chest wall deformity or tenderness. Abdomen: soft. Pertinent negatives noted - not tender. Extremities: no deformity, no edema or tenderness, no joint swelling or clubbing. Neurological: normal cognition and motor skills. Gait normal. No weakness or sensory deficit. PAIN ASSESSMENT: VITALS: BP 116/70 Pulse 85 Temp (Src) 97.9 (Temporal) Resp 16 Ht 5' 3 (1.60m) Wt 125 lb (56.7kg) SpO2 99% LMP 06/08/2020 BMI 22.15 kg/(m^2). Diagnostic tests reviewed for today's visit: Lab Value Units Date High Low HB No results within date range. HCT No results within date range. WBC No results within date range. PLT No results within date range. NA 140 mmol/L 07/09/2021 144 136 K 3.9 mmol/L 07/09/2021 5.1 3.7 GLUC 88 mg/dL 07/09/2021 99 74 BUN 12 mg/dL 07/09/2021 21 7 CREAT 0.78 mg/dL 07/09/2021 0.96 0.58 PTSEC No results within date range. INR No results within date range. APTT No results within date range. ALT 15 U/L 07/09/2021 38 7 AST 21 U/L 07/09/2021 35 13 TBILI 0.3 mg/dL 07/09/2021 1.3 0.2 TSH 1.780 uU/mL 07/09/2021 4.200 0.270 Lab Value Units Date High Low HCGQT No results within date range. UHCG No results within date range. HCG, BODY* No results within date range. Lab Value Units Date High Low ABORHD No results within date range. ABSCREEN No results within date range. Hemoglobin A1C (%) Date Value 01/25/2021 5.6 01/19/2020 5.4 No results found for this or any previous visit (from the past 8760 hour(s)). No results found for this or any previous visit (from the past 73261 hour(s)). Assessment Carcinoma of upper-outer quadrant of right breast in female, estrogen receptor positive (HCC) Assessment: s/p bilateral mastectomy, denies chemo or XRT, +immunotherapy, TE to oncology H. pylori infection Assessment: recently tx Gastroesophageal reflux disease with esophagitis without hemorrhage Assessment: diet controlled Anxiety Assessment: stable on rx per pt TOÑA (iron deficiency anemia) Assessment: on rx Hemoglobin (g/dL) Date Value 01/25/2021 13.5 Hematocrit (%) Date Value 01/25/2021 42.5 WBC (k/uL) Date Value 01/25/2021 5.98 METS: Climb a flight of stairs or walk up a hill (5.50 METs) DASI Score: 5.5; Patient denies any chest pain or undue shortness of breath with the above physical activity. Clinical Frailty Scale: 3. Well, with treated comorbid disease ASA Class: 3 ANESTHESIA FINDINGS: Intubation History: No history of difficult intubation Significant Anesthesia Considerations: none Airway History: No history of difficult airway [id number] Score: Age: <65 Sex: Female CHF history: No Hypertension history: No Stroke/TIA/thromboembolism history: No Vascular disease history: No Diabetes history: No Score: 1 I - PHYSICAL EVALUATION AIRWAY Tracheostomy tube not present Mallampati: II. TM distance: >3 FB. Neck ROM: full ROM without neurological symptoms. Mouth opening: adequate. Short neck: no. Thick neck: no Additional comments: +TMJ dysfunction, bilateral. DENTAL Dental findings: teeth intact. II - ANESTHESIA PLAN ASA Score: 3 Anesthetic Plan: other Anesthetic plan additional comments: *PACC/TCI - anesthesia choice. Informed Consent Anesthetic risks, benefits, alternatives, personnel and consent discussed: yes. Patient / Responsible Libertarian agrees to proceed: yes Patient / Surrogate agrees to blood products: blood products not planned Prepared for Surgery: optimally prepared for surgery, pending (see comment). Labs CONSULTS: Patient does not require consults for optimization at this time The Following Tests/Procedures Have Been Initiated: Orders Placed This Encounter >CBC + AUTO DIFF Standing Status: Future Number of Occurrences: 1 Standing Expiration Date: 02/15/2022 >CMP Standing Status: Future Number of Occurrences: 1 Standing Expiration Date: 02/15/2022 Planned Anesthetic: other anesthesia choice Instructions Given to Patient: Instructions located in the after visit summary. Patient given verbal and written preop instructions and voices comprehension and compliance. SIGNATURE: Jessica Arenas APRN.CNP PATIENT NAME: Greyson Rojas DATE: December 16, 2021 TIME: 4:04 PM PAGER/CONTACT #: documented in this encounter [facility] 12-09-2021 History of Presen t illness Narrative Surgery scheduling/order review encounter: Wily Zavaleta ATC 12/09/21 patient update encounter for scheduling right hip scope reviewed: Images reviewed: XR additional views necessary MRI labral tear Consent initiated Orders reviewed and signed. Chart routed to surgery schedulers Aida Madden PA-C Spoke with patient in the office regarding scheduling surgery for their right hip with Dr. Paige Procedure: Right hip arthroscopy - labral repair Date: 01-09-22 Preferred pharmacy - [id number] [place] [address] - [address] [phone] XR: correct views Yes (if no updated XR must be done in radiology at the [facility] to ensure correct views.) Brace fitting: Yes - ( hip brace fit with [facility] Rep at [facility]) Pre op PT visit required for HIP SCOPES and GLUT MED repairs Crutches/ Walker: Need Training: Yes Need Crutches: Yes PACC: [facility] ([facility] or outside) Medications: Lactobacillus acidophilus (PROBIOTIC ORAL) Take by mouth. omeprazole (PRILOSEC) 20 mg capsule Take 1 capsule by mouth twice daily for 14 days. famotidine (PEPCID) 20 mg tablet Take 1 tablet by mouth twice daily. Ascorbic Acid 500 mg cpER Take by mouth. cholecalciferol (VITAMIN D3) 1,000 unit tab tablet Take by mouth. docusate sodium (COLACE) 100 mg capsule Take by mouth. polyethylene glycol 3350 (MIRALAX, GLYCOLAX) 17 gram/dose powder Take by mouth. turmeric-turmeric root extract 450-50 mg cap Take by mouth. omeprazole (PRILOSEC) 20 mg capsule Take 1 capsule by mouth daily before breakfast. 1/2 hr before meal. venlafaxine ER (EFFEXOR XR) 37.5 mg 24 hr capsule TAKE 1 CAPSULE ONCE DAILY tamoxifen (NOLVADEX) 20 mg tablet Take 1 tablet (20 mg) by mouth once daily. mecobalamin (B12 ACTIVE ORAL) Take 1 tablet by mouth once daily. triamcinolone acetonide (NASACORT) 55 mcg nasal inhaler Use 2 Sprays in the nose once daily. IRON, FERROUS SULFATE, ORAL Take by mouth once daily. CALCIUM CARBONATE/VITAMIN D3 (VITAMIN D-3 ORAL) Take by mouth twice daily. Evening [place] Oil (EVENING PRIMROSE) 500 mg cap Take 500 mg by mouth once daily. Allergies: ALLERGIES Allergen Reactions Penicillins Hives Other reaction(s): hives all over body Current medical concerns: Any history of the following: Do you have breathing problems, asthma, sleep apnea or other lung issues No. Do you have decreased kidney function or other kidney disease No. Do you have cirrhosis of the liver or other liver disease No. Do you have any heart issues - prior heart attack, stents/surgery, valve issues, implanted cardiac device (ICD, defibrillator, pacemaker) No. Are you a diabetic No. Do you take insulin or other injections for diabetes Are you taking blood thinning medications (coumadin, Xarelto, Plavix, Eliquis etc) other than aspirin No. Have you ever a blood clot, DVT or PE (lungs, legs, arms) if yes when and where No. Do you have a blood clotting disorder or FACTOR deficiency No. Do you take medication for your Thyroid No. Have you had a skin infection (staph, MRSA) No. Have you had a stroke/ seizure or unexplained loss of consciousness No. Do you have a neurological condition like Parkinson's or Multiple Sclerosis (MS) No. Are you under the care of Pain Management, have a opioid contract or currently taking prescription pain medication No. Do you have other implanted devices ( pain pump, deep brain stimulator or spinal cord stimulator) No. Has a blood relative had a life threatening reaction to anesthesia (NOT nausea or slow wake up) No. Pre op instructions sent via [employer]. WIN [place] documented in this encounter [facility] 12-06-2021 History of Presen t illness Narrative Episode Visit Count: 5 Therapist That Will Oversee The Plan Of Care: Jasmin Yeung Start of Care Date: 10/15/21 Onset Date: 10/19/20 Patient Identified by Name and Date of : Yes REHABILITATION AND SPORTS THERAPY PHYSICAL THERAPY TREATMENT NOTE ASSESSMENT: Greyson Rojas tolerated the session with no issues. She demonstrated improvements in pelvic pain per patient report, exhibited increased tissues restrictions on RLE compared to LLE. The patient will continue to benefit from ongoing skilled physical therapy to progress toward set goals. PLAN FOR NEXT VISIT: reassessment SUBJECTIVE: Patient Reason for Visit: Pt reports having ortho appointment today, has hip surgery scheduled for next month. Pt reports improvement in pelvic pain, less pain during intercourse recently. Pt reports bladder is still doing well. Pt reports good compliance with HEP. Pain: Pain Pain Level: 5 Pain Location: Hip - Right Description: Aching;Tightness Frequency: Intermittent Post Treatment Pain Post Treatment Pain Level: (a little better) OBJECTIVE MEASURES WITH LEVEL OF FUNCTION: Pelvic Floor Pain with penetration: Deep and superficial (improved) Pelvic Floor Muscle Assessment Consent for pelvic assessment/testing and treatment: Patient was educated regarding pelvic floor physical therapy assessment/treatment which may include pelvic floor and girdle muscle assessment externally or internally (vaginal or rectal approach).;Patient verbalized consent for the above treatment approaches today. Patient understands they have control of the treatment and an opportunity to stop treatment at any time. Pelvic Floor Manual Assessment External Pelvic Region Tenderness/ Hyperactivity - Lower Extremity: Glut medius;Adductor Glut medius: Bilateral (2/2, R>L) Adductor: Bilateral (08/03) Pelvic Floor Tenderness/Hyperactivity: Tested Vaginally in Tested Vaginally in : Supine/hooklying Deep transverse perineal: Right (08/03) Iliococcygeus: Right (08/03) Obturator internus: Right (08/03) Tissue Restriction/Tenderness Scale: 1= mild, 2= moderate, 3= severe TREATMENT: Manual Therapy: 1: Gentle stretching to B pelvic floor, supine 2: MFR to B adductors, supine 3: MFR to B gluteals, sidelying Skilled Intervention: Manual skills to improve joint mobility, ROM, and decrease pain. Utilized anatomy knowledge of the therapist, and assessment of patient's response to intervention. Billing Manual TherapyTreatment Minutes: 41 Total Treatment Time Minutes (timed/untimed): 41 Jasmin Yeung PT documented in this encounter [facility] 12-06-2021 History of Presen t illness Narrative Images from the original note were not included. DEPARTMENT OF ORTHOPAEDICS Consultation as a request of self. Chief Complaint: Right hip pain HISTORY OF PRESENT ILLNESS: This is a pleasant 51 year old female, who presents today with a chief complaint of right hip pain. Injury/ Trauma: Denies PAIN EVALUATION 12/06/2021 0847 Pain Level: 5 Description: Aching;Throbbing Duration Amount of Time: 4 Duration Units: Years Frequency: Continuous Intervention/Comfort measure: Medication Pain location: anterior, posterior and lateral Duration of pain/ symptoms: 4 years Frequency: intermittent Intensity: moderate Quality: sharp and aching She Reports nocturnal pain. She denies numbness, tingling, or electric shocks. She reports catching. 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 Marie ENT Panic disorder without agoraphobia periodic symptoms PAST SURGICAL HISTORY Procedure Laterality Date BX BREAST W/DEVICE 1ST LESION ULTRASOUND GUID Right 06/12/2017 3 nodules; 5cm, 3cm, 3cm COLONOSCOPY FLX DX W/COLLJ SPEC WHEN PFRMD 03/01/2018 Colonoscopy EGD N/A 11/05/2021 FOOT SURGERY HX Left 1981 Arch reshaping LAPAROSCOPIC SALPING/OOPHORECTOMY Right 02/24/2019 Dr. Jasmin Sosa MASTECTOMY, SIMPLE, COMPLETE Bilateral 08/18/2017 Dr. Johnson (reconstruction), Dr. 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 Sosa-[facility] TOTAL ABD HYSTERECTOMY+BLAD REPR N/A left ovary removed; Dr. Sosa-[facility]- total hysterectomy with rectocele and bladder sling Current Outpatient Medications Medication Sig Dispense Refill Lactobacillus acidophilus (PROBIOTIC ORAL) Take by mouth. Ascorbic Acid 500 mg cpER Take by mouth. cholecalciferol (VITAMIN D3) 1,000 unit tab tablet Take by mouth. docusate sodium (COLACE) 100 mg capsule Take by mouth. turmeric-turmeric root extract 450-50 mg cap Take by mouth. venlafaxine ER (EFFEXOR XR) 37.5 mg 24 hr capsule TAKE 1 CAPSULE ONCE DAILY 90 capsule 3 tamoxifen (NOLVADEX) 20 mg tablet Take 1 tablet (20 mg) by mouth once daily. 90 tablet 3 mecobalamin (B12 ACTIVE ORAL) Take 1 tablet by mouth once daily. triamcinolone acetonide (NASACORT) 55 mcg nasal inhaler Use 2 Sprays in the nose once daily. IRON, FERROUS SULFATE, ORAL Take by mouth once daily. CALCIUM CARBONATE/VITAMIN D3 (VITAMIN D-3 ORAL) Take by mouth twice daily. Evening [place] Oil (EVENING PRIMROSE) 500 mg cap Take 500 mg by mouth once daily. omeprazole (PRILOSEC) 20 mg capsule Take 1 capsule by mouth twice daily for 14 days. 28 capsule 0 famotidine (PEPCID) 20 mg tablet Take 1 tablet by mouth twice daily. 180 tablet 3 polyethylene glycol 3350 (MIRALAX, GLYCOLAX) 17 gram/dose powder Take by mouth. omeprazole (PRILOSEC) 20 mg capsule Take 1 capsule by mouth daily before breakfast. 1/2 hr before meal. 30 capsule 3 No current facility-administered medications for this visit. ALLERGIES Allergen Reactions Penicillins Hives Other reaction(s): hives all over body FAMILY HISTORY Problem Relation Age of Onset Cancer Mother melanoma Hypertension Mother Lipids Mother Breast Cancer Mother 63 Diabetes Mother Arthritis Father Lipids Father High Triglycerides Heart Father ICD/pacer, CHF/s/p [place] Diabetes Father Colon Cancer Paternal Grandmother Cancer Paternal Grandfather HCC-EtOH abuse Heart Maternal Uncle enlarged heart: cardiomyopathy Hypertension Brother Diabetes Sister Lipids Sister Ischemic Heart Disease Maternal Uncle Breast Cancer Other 49 maternal cousin (mothers-brothers child) Social History Tobacco Use Smoking status: Never Smoker Smokeless tobacco: Never Used Vaping Use Vaping Use: Never used Substance Use Topics Alcohol use: No Drug use: No REVIEW OF SYSTEMS: GENERAL: No weight loss, malaise or fevers HEENT: Negative for frequent or significant headaches, No changes in hearing or vision, no nose bleeds or other nasal problems NECK: Negative for lumps, goiter, pain and significant neck swelling RESPIRATORY: Negative for cough, hemoptysis, wheezing, COPD, dyspnea or shortness of breath CARDIOVASCULAR: Negative for chest pain, leg swelling, hypertension, CHF or palpitations GI: No nausea, vomiting, or diarrhea : No history of dysuria, frequency or incontinence MUSCULOSKELETAL: Negative for joint pain or swelling, back pain or muscle pain SKIN: Negative for lesions, rash, and itching HEMATOLOGY/LYMPHOLOGY: Negative for prolonged bleeding, bruising easily or swollen nodes ENDOCRINE: Negative for cold or heat intolerance, polyuria, polydipsia and goiter RADIOGRAPHS: Right hip series dated within 1 year revealed no acute processes, fractures, or dislocations. Osseous and soft tissue structures within normal limits. Tonnis grade 0. X-Rays Reviewed and discussed. OTHER STUDIES: MRI reveals labral tear PHYSICAL EXAM: LMP 06/08/2020 General: Appears stated age, well built, in no apparent distress. Psychiatric: Mood and affect appropriate. Alert and oriented x 3 without evidence of abnormal respiratory effort. Musculoskeletal Exam: Gait normal, Posture: erect and normal. Exam: Right Left Single Leg Trendelenburg Negative Negative Hip flexion 110 110 IR 10 20 ER 60 60 Anterior impingement positive negative Dynamic labral stress positive negative RUMA positive negative Posterior Impingement negative negative TERRIE negative negative Strength Right Left Supine HF 5/5 5/5 Upright HF 5/5 5/5 Adduction 5/5 5/5 Abduction 5/5 5/5 Tenderness with Palpation: Right Left Greater Troch Positive Positive Gluteus Medius Negative Negative Piriformis Negative Negative PROCEDURE: IMPRESSION: 1. right Hip Labral Tear. PLAN: 1. Medication: Continue current medications. 2. Test(s)/Imaging/Referral(s): None. 3. Intervention: Following a disussion of nonoperative and operative treatment options, the risks and benefits of both, expected outcome and rehabilitation the patient elected for surgical intervention. Arthroscopic labral repair, Arthroscopic cam impingement femoroplasty and Arthroscopic pincer impingement acetabuloplasty will be scheduled following necessary clearance at the patient's convenience. 4. Follow-up: Following above. Reann Paige MD Sports Medicine/Orthopaedic Surgery documented in this encounter [facility] 12-02-2021 Miscellaneous Notes The following approved medication requests have been transmitted electronically. Signed Prescriptions Disp Refills omeprazole (PRILOSEC) 20 mg capsule 28 capsule 0 Sig: Take 1 capsule by mouth twice daily for 14 days. TOÑITO: No Izabella Sanchez APRN.CUSTOMER SALES SPECIALIST rx pended and pharmacy corrected Eula Chaparro Ma documented in this encounter [facility] 11-22-2021 History of Presen t illness Narrative Chief Complaint No chief complaint on file. HPI Greyson Rojas is a 51 year old female who presents here today for chronic GI issues. Pt scheduled today for chronic gastritis with h. Pylori and other additional concerns. Her main concern today is to discuss her ongoing GI issues. MRI - Had bilateral MRI on hips, this was ordered by Dr. Brar, her Hem/Onc Provider. Wants to discuss this. Will be f/u with Dr. Paige on 12/06/21. Pt seen by GastroPaige CNP on 11/01/21 due to hoarseness and dysphagia. Pt on current regimen of Omeprazole 20 mg daily, but this has only helped some of her coughing. Pt was referred for an EGD, had procedure completed on 11/05/21. Pt currently being treated with regimen below. Notes with current regimen the dry throat and choking has resolved, but still coughs at night, but not as severe it was. Will have intermittent hoarseness, will avoid certain foods as this will make this worse. Wants to know what to do next. Has f/u with Gastro on 12/19/21. Hiatal Hernia found on EGD. Paige Sylvester CNP reviewed results: 14 day Regimen Clarithromycin 500 mg twice daily Flagyl 500 mg 3 times daily I have placed a new order for omeprazole 20 mg twice daily(during the 14 days do not take her standard prescription of omeprazole and also stop the Pepcid) I placed an order for H. pylori stool to check for eradication in 6 weeks. She will need to be off antibiotics 4 weeks leading to the test and no PPI or H2 nelly 2 weeks before stool study. This stool study for recheck has been ordered. She states that her symptoms are getting better except for the mild dry cough that feels like it is in her throat area. She does feel that there may be food triggers to her symptoms including dairy, nuts such as almonds and walnuts and potentially gluten and spicy or acidic foods. No wheezing or hemoptysis or shortness of breath. No hx of asthma or allergies known to environmental. also feels these symptoms are present when using cleaning products in her home. Past medical history, appointments, medications, allergies reviewed. Previous Medical History PAST MEDICAL HISTORY Diagnosis Date Anemia, unspecified iron deficiency Breast cancer (HCC) Breast mass 06/2017 right breast Diffuse cystic mastopathy Major depressive disorder, single episode, unspecified 1999 depressed year after 3rd child: treated for 1 year with Zoloft Meniere disease Dr. Marie ENT Panic disorder without agoraphobia periodic symptoms Previous Surgical History PAST SURGICAL HISTORY Procedure Laterality Date BX BREAST W/DEVICE 1ST LESION ULTRASOUND GUID Right 06/12/2017 3 nodules; 5cm, 3cm, 3cm COLONOSCOPY FLX DX W/COLLJ SPEC WHEN PFRMD 03/01/2018 Colonoscopy FOOT SURGERY HX Left 1982 Arch reshaping LAPAROSCOPIC SALPING/OOPHORECTOMY Right 02/24/2019 Dr. Jasmin Sosa MASTECTOMY, SIMPLE, COMPLETE Bilateral 08/18/2017 Dr. Johnson (reconstruction), Dr. 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 Sosa-[facility] TOTAL ABD HYSTERECTOMY+BLAD REPR N/A left ovary removed; Dr. Sosa-[facility]- total hysterectomy with rectocele and bladder sling Family History FAMILY HISTORY Problem Relation Age of Onset Cancer Mother melanoma Hypertension Mother Lipids Mother Breast Cancer Mother 63 Diabetes Mother Arthritis Father Lipids Father High Triglycerides Heart Father ICD/pacer, CHF/s/p [place] Diabetes Father Colon Cancer Paternal Grandmother Cancer Paternal Grandfather HCC-EtOH abuse Heart Maternal Uncle enlarged heart: cardiomyopathy Hypertension Brother Diabetes Sister Lipids Sister Ischemic Heart Disease Maternal Uncle Breast Cancer Other 49 maternal cousin (mothers-brothers child) Patient Allergies ALLERGIES Allergen Reactions Penicillins Hives Other reaction(s): hives all over body Current Medications Current Outpatient Medications on File Prior to Visit Medication Sig clarithromycin (BIAXIN) 500 mg Take 1 tablet by mouth twice daily for 14 days. metroNIDAZOLE (FLAGYL) 500 mg tablet Take 1 tablet by mouth three times daily for 14 days. FOR 7 DAYS. omeprazole (PRILOSEC) 20 mg capsule Take 1 capsule by mouth twice daily for 14 days. famotidine (PEPCID) 20 mg tablet Take 1 tablet by mouth twice daily. Ascorbic Acid 500 mg cpER Take by mouth. cholecalciferol (VITAMIN D3) 1,000 unit tab tablet Take by mouth. docusate sodium (COLACE) 100 mg capsule Take by mouth. polyethylene glycol 3350 (MIRALAX, GLYCOLAX) 17 gram/dose powder Take by mouth. turmeric-turmeric root extract 450-50 mg cap Take by mouth. omeprazole (PRILOSEC) 20 mg capsule Take 1 capsule by mouth daily before breakfast. 1/2 hr before meal. venlafaxine ER (EFFEXOR XR) 37.5 mg 24 hr capsule TAKE 1 CAPSULE ONCE DAILY tamoxifen (NOLVADEX) 20 mg tablet Take 1 tablet (20 mg) by mouth once daily. mecobalamin (B12 ACTIVE ORAL) Take 1 tablet by mouth once daily. triamcinolone acetonide (NASACORT) 55 mcg nasal inhaler Use 2 Sprays in the nose once daily. IRON, FERROUS SULFATE, ORAL Take by mouth once daily. CALCIUM CARBONATE/VITAMIN D3 (VITAMIN D-3 ORAL) Take by mouth twice daily. Evening [place] Oil (EVENING PRIMROSE) 500 mg cap Take 500 mg by mouth once daily. No current facility-administered medications on file prior to visit. Social History Social History Tobacco Use Smoking status: Never Smoker Smokeless tobacco: Never Used Vaping Use Vaping Use: Never used Substance Use Topics Alcohol use: No Drug use: No Review of Symptoms REVIEW OF SYSTEMS as noted in HPI EXAM: BP 112/80 (BP Site: Left Arm, BP Position: Sitting, BP Cuff Size: Regular Adult) Pulse 68 Resp 16 Wt 57.5 kg (126 lb 12.8 oz) LMP 06/08/2020 (Approximate) BMI 22.46 kg/m General Appearance: Well appearing, alert, in no acute distress, well-hydrated, well nourished.. Abdomen: Normal abdominal exam, Abdomen soft, non-tender. Bowel sounds normal. No masses, organomegaly. Peripheral Pulses: Normal. CV: RRR, normal S1S2, no murmurs Lungs: CTA without distress Health Maintenance List COVID-19 VACCINE(1) Never done HEPATITIS C SCREENING Never done HIV SCREENING Never done DTAP,TDAP,TD(2 - Tdap) due on 05/21/2014 INFLUENZA(Season Ended) due on 04/03/2022 COLORECTAL CANCER SCREENING due on 03/01/2023 PAP TESTING due on 03/19/2023 HPV TESTING due on 03/19/2023 DIABETES SCREEN due on 07/09/2024 LIPID SCREEN due on 07/09/2026 SHINGRIX VACCINE Completed MENINGOCOCCAL CONJUGATE Aged Out MAMMOGRAM Discontinued ASSESSMENT/PLAN: 1. Hoarseness - ICD9: 784.42, ICD10: R49.0 (primary diagnosis) - unsure the cause, seems to be slightly better since starting treatment with prilosec and antibiotics for H pylori infection. Will recheck for H pylori clearance with stool study as already ordered and consideration of continuing the omeprazole for minimum of 3-6 months and some food allergy/environmental allergy testing likely needed. May also need PFTs and asthma testing as well as repeat EGD for EOE testing if not improved as d/w her today. 2. Cough - ICD9: 786.2, ICD10: R05.9 - unsure the cause, seems to be slightly better since starting treatment with prilosec and antibiotics for H pylori infection. Will recheck for H pylori clearance with stool study as already ordered and consideration of continuing the omeprazole for minimum of 3-6 months and some food allergy/environmental allergy testing likely needed. May also need PFTs and asthma testing as well as repeat EGD for EOE testing if not improved as d/w her today. 3. Gastroesophageal reflux disease with esophagitis without hemorrhage - ICD9: 530.81, 530.10, ICD10: K21.00 - unsure the cause, seems to be slightly better since starting treatment with prilosec and antibiotics for H pylori infection. Will recheck for H pylori clearance with stool study as already ordered and consideration of continuing the omeprazole for minimum of 3-6 months and some food allergy/environmental allergy testing likely needed. May also need PFTs and asthma testing as well as repeat EGD for EOE testing if not improved as d/w her today. 4. H. pylori infection - ICD9: 041.86, ICD10: A04.8 - unsure the cause, seems to be slightly better since starting treatment with prilosec and antibiotics for H pylori infection. Will recheck for H pylori clearance with stool study as already ordered and consideration of continuing the omeprazole for minimum of 3-6 months and some food allergy/environmental allergy testing likely needed. May also need PFTs and asthma testing as well as repeat EGD for EOE testing if not improved as d/w her today. Gallo Sanches DO documented in this encounter [facility] 11-19-2021 History of Presen t illness Narrative Episode Visit Count: 4 Therapist That Will Oversee The Plan Of Care: Jasmin Yeung Start of Care Date: 10/15/21 Onset Date: 10/19/20 Patient Identified by Name and Date of : Yes REHABILITATION AND SPORTS THERAPY PHYSICAL THERAPY PROGRESS REPORT PLAN OF CARE UPDATE: Assessment: Greyson Rojas demonstrates improvements in bladder and bowel function, ability to lengthen pelvic floor muscles. She has progressed toward goals. Patient continues to present with impairments in pelvic floor muscle tightness/tenderness, pelvic pain with intercourse. She will benefit from continued skilled therapy services to meet the updated goals for this plan of care as noted below. Goals for Episode of Care: created on 10/15/21 Updated on: 11/19/2021 Incontinence: Patient to demonstrate independence with HEP-MET Patient to demonstrate less leaks with urge-MET Patient reports urgency is experienced less than baseline / initial Evaluation-MET Patient demonstrates ability to perform diaphragmatic breathing / Relaxation-MET Patient reports at least 75% improvement in fecal incontinence compared to Baseline-MET Pelvic Pain: Patient reports painfree intercourse-NOT MET Patient displays decreased muscle spasms in pelvic floor to allow for decreased pain levels-PROGRESSING Patient displays improved muscle dynamics of pelvic floor including ability to lengthen-MET Patient Goals: improve pain Planned Interventions, Frequency, and Duration: 1x every other week, 4 weeks (reassess at 4 weeks and progress as indicated) Total Number of Visits Planned: 2 Patient to be seen for Therapeutic exercise ([id number]);Manual therapy ([id number]);Self-group home management ([id number]);Patient/Family/Caregiver Education PLAN FOR NEXT VISIT: continue manual work SUBJECTIVE: Patient Reason for Visit: Pt reports receiving results that she has chronic gastritis per patient report, currently on antibiotics. Pt reports no urinary or fecal incontinence since last session. Pt reports no change in pelvic pain during intercourse, has not looked into dilators yet. Pain: Pain Pain Level: 0 Post Treatment Pain Post Treatment Pain Level: No Change PROMIS Scales Higher is Better 01/09/2021 10/13/2021 11/17/2021 Phys Func - Score - 49 (within normal limits) 47 (within normal limits) Phys Func - Percentile - 46 % 38 % Social Roles - Score - 52 (within normal limits) 50 (within normal limits) Social Role - Percentile - 58 % 50 % GH Physical - Score 50.8 (Very Good) 44.9 (Good) - GH Physical - Percentile 53 % 31 % - GH Mental - Score 62.5 (Excellent) 48.3 (Very Good) - GH Mental - Percentile 89 % 43 % - Self-Eff Symptom - Score - 50 (Average) 48 (Average) Self-Eff Symptom - Percentile - 50 % 42 % T-scores: mean of general population = 50. 5 points is clinically meaningfully difference Percentiles provide an indication of how the patient's score ranks in relation to the general population. Higher percentile rankings indicate better function/quality of life. 50th percentile is the average of the general population and indicates half of respondents had a worse score. Lower is Better 10/13/2021 11/17/2021 Fatigue - Score 51 (within normal limits) 45 (within normal limits) Fatigue - Percentile 46 % 69 % T-scores: mean of general population = 50. 5 points is clinically meaningfully difference Percentiles provide an indication of how the patient's score ranks in relation to the general population. Higher percentile rankings indicate better function/quality of life. 50th percentile is the average of the general population and indicates half of respondents had a worse score. OBJECTIVE MEASURES WITH LEVEL OF FUNCTION: Pelvic Floor Pain with penetration: Deep and superficial Stress Incontinence: No Urgency: No Fecal incontinence: No Pelvic Floor Muscle Assessment Consent for pelvic assessment/testing and treatment: Patient was educated regarding pelvic floor physical therapy assessment/treatment which may include pelvic floor and girdle muscle assessment externally or internally (vaginal or rectal approach).;Patient verbalized consent for the above treatment approaches today. Patient understands they have control of the treatment and an opportunity to stop treatment at any time. Range of Motion: Normal Ability to Lengthen pelvic floor: Yes Pelvic Floor Manual Assessment External Pelvic Region Tenderness/ Hyperactivity - Lower Extremity: Adductor;Glut medius Glut medius: Bilateral (2/2, R>L) Adductor: Bilateral (1/1) Pelvic Floor Tenderness/Hyperactivity: Tested Vaginally in Tested Vaginally in : Supine/hooklying Superficial transverse perineal: Bilateral (1/1, R>L) Deep transverse perineal: Bilateral (1/1, R>L) Tissue Restriction/Tenderness Scale: 1= mild, 2= moderate, 3= severe TREATMENT: Manual Therapy: 1: Reassessment 2: Gentle stretching to B pelvic floor, supine 3: MFR to B adductors, supine 4: MFR to B gluteals, sidelying Skilled Intervention: Manual skills to improve joint mobility, ROM, and decrease pain. Utilized anatomy knowledge of the therapist, and assessment of patient's response to intervention. Billing Manual TherapyTreatment Minutes: 40 Total Treatment Time Minutes (timed/untimed): 40 Jasmin Yeung PT documented in this encounter [facility] 11-12-2021 Miscellaneous Notes Patient notified of results and provider's instructions. Patient verbalizes understanding. Ceci Miranda RN LEFT MESSAGE FOR PATIENT TO CALL OFFICE. Please call patient and review results of EGD positive for H pylori - 14 day Regimen Clarithromycin 500 mg twice daily Flagyl 500 mg 3 times daily I have placed a new order for omeprazole 20 mg twice daily(during the 14 days do not take her standard prescription of omeprazole and also stop the Pepcid) I placed an order for H. pylori stool to check for eradication in 6 weeks. She will need to be off antibiotics 4 weeks leading to the test and no PPI or H2 nelly 2 weeks before stool study. Thanks Paige documented in this encounter [facility] 11-08-2021 History of Presen t illness Narrative Episode Visit Count: 10 Therapist That Will Oversee The Plan Of Care: Jasmin Yeung Start of Care Date: 10/15/21 Onset Date: 10/19/20 REHABILITATION AND SPORTS THERAPY PHYSICAL THERAPY TREATMENT NOTE ASSESSMENT: Greyson Rojas tolerated the session with no issues. She demonstrated difficulty with recreational and general ADLs. The patient will continue to benefit from ongoing skilled physical therapy for reassessment by supervising therapist. PLAN FOR NEXT VISIT: Will hold therapy until patient see's Dr Paige for hip consult. [place] SUBJECTIVE: Patient Reason for Visit: Pt received results of MRI and demonstrates a labral tear in the right hip with LILLIANA bilaterally Pain: Pain Pain Level: 6 Pain Location: Hip - Right Description: Sore;Tightness Frequency: Continuous OBJECTIVE MEASURES WITH LEVEL OF FUNCTION: Tenderness in gluteals remains TREATMENT: Self-Penitentiary Management: 1: Long discussion reviewing MRI for both hip and lumbar pathology/results and implications for rehab and surgical consult for expert opinion to determine best plan of care 2: Discussed with patient risks/benefits of continuing rehab vs pausing to receive consult and developed our plan together today 3: Reviewed current HEP and discussed positions/movements to completely avoid with known labral tear and LILLIANA Skilled Intervention: Skilled judgment in the selection of proper modification for activity of daily living/home management based on clinical presentation, deficits, and needs. Educated the patient regarding recommendations and provided written instruction to facilitate compliance. Reviewed patient specific diagnosis in relation to activities of daily living/home management. Activity progression based on professional judgement. Billing Self-Care/Home Management Treatment Minutes: 40 Total Treatment Time Minutes (timed and untimed codes) : 40 Salas Sherman PT documented in this encounter [facility] 11-08-2021 Miscellaneous Notes So you seen this patient at the last visit and Ordered MRI. Her Physical Therapist thinks she needs to see a Hip Doctor and she is requesting referral if you can place that Radha Montoya MA documented in this encounter [facility] 11-08-2021 History of Presen t illness Narrative Episode Visit Count: 3 Therapist That Will Oversee The Plan Of Care: Jasmin Yeung Start of Care Date: 10/15/21 Onset Date: 10/19/20 Patient Identified by Name and Date of : Yes REHABILITATION AND SPORTS THERAPY PHYSICAL THERAPY TREATMENT NOTE ASSESSMENT: Greyson Rojas tolerated the session with expected muscle soreness. She demonstrated improvements in urinary urgency and incontinence, continued difficulty with pelvic pain. The patient will continue to benefit from ongoing skilled physical therapy to progress toward set goals. PLAN FOR NEXT VISIT: reassessment SUBJECTIVE: Patient Reason for Visit: Pt reports receiving MRI results for hip, has a torn labrum and LILLIANA. Pt reports continued further relaxation of PF. Pt reports some deep pain with intercourse, slight superficial pain. Pt reports not looking into dilators yet. Pt reports bladder issues have resolved for the most part, no urgency or incontinence. Pain: Pain Pain Level: 0 Post Treatment Pain Post Treatment Pain Level: 0 OBJECTIVE MEASURES WITH LEVEL OF FUNCTION: Pelvic Floor Pain with penetration: Deep and superficial Urgency: No Pelvic Floor Muscle Assessment Consent for pelvic assessment/testing and treatment: Patient was educated regarding pelvic floor physical therapy assessment/treatment which may include pelvic floor and girdle muscle assessment externally or internally (vaginal or rectal approach).;Patient verbalized consent for the above treatment approaches today. Patient understands they have control of the treatment and an opportunity to stop treatment at any time. Pelvic Floor Manual Assessment External Pelvic Region Tenderness/ Hyperactivity - Lower Extremity: Adductor;Glut medius Glut medius: Bilateral (2/2, R>L) Adductor: Bilateral (1/1) Pelvic Floor Tenderness/Hyperactivity: Tested Vaginally in Tested Vaginally in : Supine/hooklying Superficial transverse perineal: Bilateral (1/2) Iliococcygeus: Bilateral (1/2) Pubococcygeus: Bilateral (1/2) Tissue Restriction/Tenderness Scale: 1= mild, 2= moderate, 3= severe TREATMENT: Manual Therapy: 1: Gentle stretching to B pelvic floor, supine 2: MFR to B adductors, supine 3: MFR to B gluteals, sidelying Skilled Intervention: Manual skills to improve joint mobility, ROM, and decrease pain. Utilized anatomy knowledge of the therapist, and assessment of patient's response to intervention. Billing Manual TherapyTreatment Minutes: 42 Total Treatment Time Minutes (timed and untimed codes) : 42 Jasmin Yeung PT documented in this encounter [facility] 11-05-2021 Nurse Note Patient states readiness for discharge. Assisted with dressing Dr Hatfield at bedside documented in this encounter [facility] 11-05-2021 Miscellaneous Notes HISTORY AND PHYSICAL Greyson Rojas, 51 year old female Current history and physical on file: Yes Is a new History and Physical required for today's visit? No Indication for procedure: Dysphagia PROCEDURE(S) SCHEDULED FOR: EGD (Esophagogastroduodenoscopy) with or without biopsies, removal of polyps or lesions, dilation ( any means), treatment of bleeding ( any means), Barrx treatment of Sim's Esophagus, image tube placement or cryo therapy treatment based on clinical findings. BASELINE BEHAVIOR: Calm BASELINE ORIENTATION: A & O x3 All medications and allergies reviewed: Yes Skin Assessment: Warm dry mucus membranes pink Airway/Respiratory Assessment: Airway: visualization of the uvula- Yes Mouth: opening greater than 2 fingerbreadths- Yes Neck: full range of motion- Yes Breath sounds clear/equal- Yes Cardiac Assessment: Regular rate and rhythm without murmur Abdominal Assessment: Abdomen soft, non-tender, no masses or organomegaly. Sedation Plan: Moderate Additional Comments: None Alejandro Hatfield MD documented in this encounter [facility] 11-04-2021 History of Presen t illness Narrative Radiology Service Progress Note DATE OF SERVICE: November 04, 2021 TIME: 2:45 PM PATIENT IDENTITY VERIFICATION COMPLETED USING TWO (2) STANDARD IDENTIFIERS: Name and Date of confirmed by patient verbally. FALL SCREENING: Has the patient had 2 falls in the last year or 1 fall with injury or currently using an Ambulatory Assistive Device (Walker, Cane, Wheelchair, Crutches, etc.)? No PATIENT GENDER DATA: Female. status: : No status: NO. PATIENT RELEVANT IMPLANT DATA REVIEWED: Yes ALLERGIES: Reviewed and unchanged CONTRAST ALLERGY: NO. EXAM: MRI - CONTRAST TYPE: GROUP II PERIPHERAL IV DATA: Ambulatory: A peripheral IV was started in the Left antecubital site with a Angio cath: 22 gauge. RADIOLOGY DEPARTMENT: MR; Exam(s) Completed: Lower MSK: Hip, bilateral SIGNATURE: RT Mayito(R) PATIENT NAME: Greyson Rojas DATE: November 04, 2021 TIME: 2:45 PM documented in this encounter [facility] 11-01-2021 Flroencia Sylvester APRN.[facility] - 11/01/2021 11:26 AM EDT Your procedure will be at [place] The endoscopy staff will call you the day before the procedure with specific on arrival time. (Thursday for Thursday procedures). Constipation: - Start OTC probiotic with at least 15 billion live cultures, 10+ strains - Drink around 64 oz water daily - Benefiber daily: 2 teaspoons added to 8 ounces of water up to 3 times daily. - If no relief with fiber powder, start Miralax daily/PRN to induce bowel movement Miralax generally will help produce bowel movement in 1-3 days Fill to top of white section in cap which is marked to indicate the correct dose (17 g) Stir and dissolve in any 8 ounces of non-carbonated beverage (cold, hot or room temperature) then drink If diarrhea occurs, reduce usage to every other day documented in this encounter [facility] 11-01-2021 History of Presen t illness Narrative CHIEF COMPLAINT: Patient presents with: Throat Problem: Dry mouth, cough, Dysphagia, choking This consult was requested by Rossi Martinez APRN* for an opinion regarding GERD, hoarseness . My final recommendations will be communicated to the requesting health care provider by way of the shared medical record for internal providers or letter via the [email or web address] for external providers. Last Colonoscopy 03/01/2018:Impression: The entire examined colon is normal. No specimens collected. Repeat colonoscopy in 5 years for surveillance.Family history of colorectal cancer in multiple 2nd degree relatives With colon cancer. The patient was seen by Rossi Martinez on 10/16/2021, leading to this consultation. That note has been reviewed and part as follows: Greyson Rojas is a 51 year old female who presents to the office today for review of health conditions. She is an established patient of Dr. Sanches and new to me today. Concerns today: Saw her oncologist on Thursday of last week. They feel she may be having some reflux issues. They told her to cut back on the amount of vitamins she is taking. Cough that she can't seem to get rid of-since April. Did not have COVID. Is mostly at night when sleeping. Vocal cord hoarseness. Can last an hour, sometimes a little bit longer. Was eating almonds today and her voice almost completely went out on her-to the point she cannot talk. Onions, garlic, chives, Cheetos can cause. Throat gets irritated, nose starts running. Saw an ear nose throat physician last summer-did not have any environmental or food allergies. Dr. Ovalle. Has cut out Krill oil, cut back Calcium Greyson Rojas is a 51 year old female with a past medical history right breast cancerestrogen receptor positive (HCC), anemia, depression , Covid .Who presents for hoarseness and cough. HPI: Patient present today for 3 years of symptoms of voice changes, cough which started since this past fall - She would noticed the cough at night and after eating. She reports choking on solids. Denies burning in her throat or stomach no regurgitation of food. Denies vomiting reports of nausea at times when she eats or smell a trigger food. She went to [employer] this past week and noticed her tongue was burning after eating garlic bread sticks and chicken Parmesan, avoided onions on salad but still thinks onion salt is in the salad dressing. She has noticed voice changes with even the smell of onions or superintendent sanitation. She noticed eating nuts will cause choking and coughing. Mushrooms has caused voice change as will. If she smells her symptoms will last 30min but if she eats the trigger foods her symptoms will last hours. She has seen ENT Also seen for allergy testing which came back normal. This past summer she was tested for garlic and onion and that came back normal Recently started on omeprazole 20mg - she reports this has improved coughing and dryness in her throat. Record Review: [facility] / Outside records reviewed. PAST MEDICAL HISTORY Diagnosis Date Anemia, unspecified iron deficiency Breast cancer (HCC) Breast mass 06/2017 right breast Diffuse cystic mastopathy Major depressive disorder, single episode, unspecified 1999 depressed year after 3rd child: treated for 1 year with Zoloft Meniere disease Dr. Marie ENT Panic disorder without agoraphobia periodic symptoms PAST SURGICAL HISTORY Procedure Laterality Date BX BREAST W/DEVICE 1ST LESION ULTRASOUND GUID Right 06/12/2017 3 nodules; 5cm, 3cm, 3cm COLONOSCOPY FLX DX W/COLLJ SPEC WHEN PFRMD 03/01/2018 Colonoscopy FOOT SURGERY HX Left 1981 Arch reshaping LAPAROSCOPIC SALPING/OOPHORECTOMY Right 02/24/2019 Dr. Jasmin Sosa MASTECTOMY, SIMPLE, COMPLETE Bilateral 08/18/2017 Dr. Johnson (reconstruction), Dr. 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 S[facility] TOTAL ABD HYSTERECTOMY+BLAD REPR N/A left ovary removed; Dr. Sosa-[facility]- total hysterectomy with rectocele and bladder sling Allergies: ALLERGIES Allergen Reactions Penicillins Hives Other reaction(s): hives all over body Medications: Ascorbic Acid 500 mg cpER Take by mouth. cholecalciferol (VITAMIN D3) 1,000 unit tab tablet Take by mouth. docusate sodium (COLACE) 100 mg capsule Take by mouth. polyethylene glycol 3350 (MIRALAX, GLYCOLAX) 17 gram/dose powder Take by mouth. turmeric-turmeric root extract 450-50 mg cap Take by mouth. omeprazole (PRILOSEC) 20 mg capsule Take 1 capsule by mouth daily before breakfast. 1/2 hr before meal. venlafaxine ER (EFFEXOR XR) 37.5 mg 24 hr capsule TAKE 1 CAPSULE ONCE DAILY tamoxifen (NOLVADEX) 20 mg tablet Take 1 tablet (20 mg) by mouth once daily. mecobalamin (B12 ACTIVE ORAL) Take 1 tablet by mouth once daily. triamcinolone acetonide (NASACORT) 55 mcg nasal inhaler Use 2 Sprays in the nose once daily. IRON, FERROUS SULFATE, ORAL Take by mouth once daily. CALCIUM CARBONATE/VITAMIN D3 (VITAMIN D-3 ORAL) Take by mouth twice daily. Evening [place] Oil (EVENING PRIMROSE) 500 mg cap Take 500 mg by mouth once daily. FAMILY HISTORY Problem Relation Age of Onset Cancer Mother melanoma Hypertension Mother Lipids Mother Breast Cancer Mother 63 Diabetes Mother Arthritis Father Lipids Father High Triglycerides Heart Father ICD/pacer, CHF/s/p VT Diabetes Father Colon Cancer Paternal Grandmother Cancer Paternal Grandfather HCC-[place] abuse Heart Maternal Uncle enlarged heart: cardiomyopathy Hypertension Brother Diabetes Sister Lipids Sister Ischemic Heart Disease Maternal Uncle Breast Cancer Other 49 maternal cousin (mothers-brothers child) Employer And Job Title: None on file Years Of Education Completed: Not specified Marital Status: with 3 children Social History Tobacco Use Smoking status: Never Smoker Smokeless tobacco: Never Used Vaping Use Vaping Use: Never used Substance Use Topics Alcohol use: No Drug use: No Review of Systems: Review of Systems HENT: Positive for trouble swallowing and voice change. Respiratory: Positive for cough and choking. Cardiovascular: Positive for palpitations. Gastrointestinal: Positive for constipation. All other systems reviewed and are negative. Are you taking any blood thinners? No Physical Examination: BP 108/70 Pulse 68 Ht 5' 3 (1.60m) Wt 126 lb (57.2kg) LMP 06/08/2020 BMI 22.33 kg/(m^2). Physical Exam Constitutional: Appearance: Normal appearance. She is normal weight. HENT: Head: Normocephalic and atraumatic. Eyes: Extraocular Movements: Extraocular movements intact. Pupils: Pupils are equal, round, and reactive to light. Cardiovascular: Rate and Rhythm: Normal rate and regular rhythm. Pulses: Normal pulses. Heart sounds: Normal heart sounds. Pulmonary: Effort: Pulmonary effort is normal. Breath sounds: Normal breath sounds. Abdominal: General: Abdomen is flat. Bowel sounds are normal. Palpations: Abdomen is soft. Tenderness: There is abdominal tenderness in the epigastric area. Musculoskeletal: General: Normal range of motion. Cervical back: Normal range of motion and neck supple. Skin: General: Skin is warm and dry. Neurological: General: No focal deficit present. Mental Status: She is alert and oriented to person, place, and time. Psychiatric: Mood and Affect: Mood normal. Behavior: Behavior normal. ASSESSMENT: No diagnosis found. PLAN: Assessment/Plan (R49.0) Hoarseness (primary encounter diagnosis) (R13.10) Dysphagia, unspecified type 1. Hoarseness - Patient presents today for evaluation of cough and hoarseness. Patient reports symptoms started 3 years ago. She reports if she eats or smells certain foods nuts, onions, garlic, mushrooms her symptoms start. She has been evaluated by and had allergy testing done which all came back normal. She recently started omeprazole 20mg daily and reports this has improvement in coughing. Recommend EGD with esophogeal biopsy r/o EOE. - EGD DIAGNOSTIC 2. Dysphagia, unspecified type - EGD DIAGNOSTIC Follow up in office 3 months/PRN. Recommended to please call office/go to ER if fever, chills, chest pain, SOB, diarrhea, nausea, emesis, worsening abdominal pain, dehydration occurs I spent 30 minutes in the visit, with more than 50% of the total [id number] time of the visit in counseling / coordination of care. I have confirmed and edited as necessary, the PFSH and ROS obtained by others. Paige Sylvester APRN.CNP November 01, 2021 12:07 PM documented in this encounter [facility] 11-01-2021 History of Presen t illness Narrative Episode Visit Count: 2 Therapist That Will Oversee The Plan Of Care: Jasmin Yeung Start of Care Date: 10/15/21 Onset Date: 10/19/20 Patient Identified by Name and Date of : Yes REHABILITATION AND SPORTS THERAPY PHYSICAL THERAPY TREATMENT NOTE ASSESSMENT: Greyson Rojas tolerated the session with no issues. She demonstrated difficulty with continued pelvic pain per patient report. The patient will continue to benefit from ongoing skilled physical therapy to progress toward set goals. PLAN FOR NEXT VISIT: progress stretches, internal/external manual work SUBJECTIVE: Patient Reason for Visit: Pt reports noticing some improvement in ability to relax pelvic floor. Pt reports having MRI scheduled for hip next week. Pt reports continued pain with intercourse. Pt reports good compliance with HEP. Pain: Pain Pain Level: 0 Post Treatment Pain Post Treatment Pain Level: 0 OBJECTIVE MEASURES WITH LEVEL OF FUNCTION: Pelvic Floor Pain with penetration: Deep and superficial;Pain during intercourse Pelvic Floor Muscle Assessment Consent for pelvic assessment/testing and treatment: Patient was educated regarding pelvic floor physical therapy assessment/treatment which may include pelvic floor and girdle muscle assessment externally or internally (vaginal or rectal approach).;Patient verbalized consent for the above treatment approaches today. Patient understands they have control of the treatment and an opportunity to stop treatment at any time. Pelvic Floor Manual Assessment External Pelvic Region Tenderness/ Hyperactivity - Trunk: Lower abdominals Lower abdominals: Bilateral (08/03) External Pelvic Region Tenderness/ Hyperactivity - Lower Extremity: Adductor Adductor: Bilateral (2/1) Tissue Restriction/Tenderness Scale: 1= mild, 2= moderate, 3= severe TREATMENT: Therapeutic Exercise: 1: PF lengthening, 1x10 2: *piriformis stretch, [id number] each 3: *supine hip flexor stretch, [id number] each 4: *supine 90/90 hamstring stretch, [id number] each Skilled Intervention: Patient was educated in proper exercise technique and purpose for exercises. Reviewed and educated patient on additions/changes for home exercise program as above (*). Skilled judgment was provided in selection of appropriate interventions. Provided written instruction for home exercise program to facilitate proper performance and compliance. Manual Therapy: 1: MFR to B lower abdominals, supine 2: MFR to B adductors, supine Skilled Intervention: Manual skills to improve joint mobility, ROM, and decrease pain. Utilized anatomy knowledge of the therapist, and assessment of patient's response to intervention. Self-Penitentiary Management: 1: Reviewed purpose and function of vaginal dilators for internal self-STM Skilled Intervention: Skilled judgment in the selection of proper modification for activity of daily living/home management based on clinical presentation, deficits, and needs. Billing Therapeutic Exercise Treatment Minutes: 12 Manual TherapyTreatment Minutes: 19 Self-Care/Home Management Treatment Minutes: 10 Total Treatment Time Minutes (timed and untimed codes) : 41 Jasmin Yeung PT documented in this encounter [facility] 10-25-2021 History of Presen t illness Narrative Episode Visit Count: 9 Therapist That Will Oversee The Plan Of Care: Jasmin Yeung Start of Care Date: 10/15/21 Onset Date: 10/19/20 [facility] PHYSICAL THERAPY TREATMENT NOTE ASSESSMENT: Greyson Rojas tolerated the session with fatigue, decreased pain and expected muscle soreness. She demonstrated difficulty with hip pain and decreased exercise tolerance. The patient will continue to benefit from ongoing skilled physical therapy to progress toward set goals. PLAN FOR NEXT VISIT: needling as needed. Assess findings from MRI for any gluteal pathology SUBJECTIVE: Patient Reason for Visit: Pt had a bad flare up in her hip after exercising with weights Pain: Pain Pain Level: 6 Pain Location: Hip - Right Description: Sore;Tightness Frequency: Continuous OBJECTIVE MEASURES WITH LEVEL OF FUNCTION: Tenderness in below noted mm TREATMENT: Manual Therapy: 1: STM to R glute with foam roller to R glutes with push to tolerance Dry Needling: (3) 75 mm needles to R glute med with pistoning, fanning, and periosteal pecking; (2) 75 mm needles to R glute min with pistoning and fanning Skilled Intervention: Manual skills to improve joint mobility, ROM, and decrease pain. Utilized anatomy knowledge of the therapist, and assessment of patient's response to intervention. Billing Manual TherapyTreatment Minutes: 30 Total Treatment Time Minutes (timed and untimed codes) : 30 Salas Sherman PT documented in this encounter [facility] 05-27-2021 History of Presen t illness Narrative Radiology Service Progress Note PATIENT NAME: Greyson Rojas DATE OF SERVICE: May 27, 2021 TIME: 9:04 AM PATIENT IDENTITY VERIFICATION COMPLETED USING TWO (2) IDENTIFIERS: Name and Date of confirmed by patient verbally. FALL SCREENING: Has the patient had 2 falls in the last year or 1 fall with injury or currently using an Ambulatory Assistive Device (Walker, Cane, Wheelchair, Crutches, etc.)? No PATIENT GENDER DATA: Female. status: : No status: NO. PATIENT RELEVANT IMPLANT DATA REVIEWED: Not Applicable RADIOLOGY DEPARTMENT: General X-ray: Exam(s) Completed: Spine X-Ray(s): Lumbar AP / LAT / L5-S1 Pelvis X-Ray: Pelvis with Hip Right and si joints PERIPHERAL IV DATA: Not applicable SIGNED BY: RT Felipa(R) May 27, 2021 9:04 AM documented in this encounter [facility] 08-27-2007 History of Past i llness Narrative Problem Noted Date Resolved Date Sebaceous cyst 08/27/2007 11/11/2007 XEROSIS///SEBACEOUS GLAND DIS NEC 08/27/2007 11/11/2007 Sunburn 01/29/2007 11/11/2007 FOLLICULITIS///HAIR DISEASES NEC 12/17/2006 11/11/2007 RASH///NONSPECIF SKIN ERUPT NEC 12/17/2006 11/11/2007 documented as of this encounter (statuses as of 10/25/2021) [facility] History of Past illness Narrative* Problem Noted Date Resolved Date Sebaceous cyst 08/27/2007 11/11/2007 XEROSIS///SEBACEOUS GLAND DIS NEC 08/27/2007 11/11/2007 Sunburn 01/29/2007 11/11/2007 FOLLICULITIS///HAIR DISEASES NEC 12/17/2006 11/11/2007 RASH///NONSPECIF SKIN ERUPT NEC 12/17/2006 11/11/2007 documented as of this encounter (statuses as of 11/01/2021) [facility] Narrative* Problem Noted Date Resolved Date Sebaceous cyst 08/27/2007 11/11/2007 XEROSIS///SEBACEOUS GLAND DIS NEC 08/27/2007 11/11/2007 Sunburn 01/29/2007 11/11/2007 FOLLICULITIS///HAIR DISEASES NEC 12/17/2006 11/11/2007 RASH///NONSPECIF SKIN ERUPT NEC 12/17/2006 11/11/2007 documented as of this encounter (statuses as of 11/01/2021) [facility] Narrative* Problem Noted Date Resolved Date Sebaceous cyst 08/27/2007 11/11/2007 XEROSIS///SEBACEOUS GLAND DIS NEC 08/27/2007 11/11/2007 Sunburn 01/29/2007 11/11/2007 FOLLICULITIS///HAIR DISEASES NEC 12/17/2006 11/11/2007 RASH///NONSPECIF SKIN ERUPT NEC 12/17/2006 11/11/2007 documented as of this encounter (statuses as of 11/05/2021) [facility] Narrative* Problem Noted Date Resolved Date Sebaceous cyst 08/27/2007 11/11/2007 XEROSIS///SEBACEOUS GLAND DIS NEC 08/27/2007 11/11/2007 Sunburn 01/29/2007 11/11/2007 FOLLICULITIS///HAIR DISEASES NEC 12/17/2006 11/11/2007 RASH///NONSPECIF SKIN ERUPT NEC 12/17/2006 11/11/2007 documented as of this encounter (statuses as of 11/06/2021) [facility] Narrative* Problem Noted Date Resolved Date Sebaceous cyst 08/27/2007 11/11/2007 XEROSIS///SEBACEOUS GLAND DIS NEC 08/27/2007 11/11/2007 Sunburn 01/29/2007 11/11/2007 FOLLICULITIS///HAIR DISEASES NEC 12/17/2006 11/11/2007 RASH///NONSPECIF SKIN ERUPT NEC 12/17/2006 11/11/2007 documented as of this encounter (statuses as of 11/08/2021) [facility] Narrative* Problem Noted Date Resolved Date Sebaceous cyst 08/27/2007 11/11/2007 XEROSIS///SEBACEOUS GLAND DIS NEC 08/27/2007 11/11/2007 Sunburn 01/29/2007 11/11/2007 FOLLICULITIS///HAIR DISEASES NEC 12/17/2006 11/11/2007 RASH///NONSPECIF SKIN ERUPT NEC 12/17/2006 11/11/2007 documented as of this encounter (statuses as of 11/08/2021) [facility] Narrative* Problem Noted Date Resolved Date Sebaceous cyst 08/27/2007 11/11/2007 XEROSIS///SEBACEOUS GLAND DIS NEC 08/27/2007 11/11/2007 Sunburn 01/29/2007 11/11/2007 FOLLICULITIS///HAIR DISEASES NEC 12/17/2006 11/11/2007 RASH///NONSPECIF SKIN ERUPT NEC 12/17/2006 11/11/2007 documented as of this encounter (statuses as of 11/08/2021) [facility] Past [facility] Narrative* Problem Noted Date Resolved Date Sebaceous cyst 08/27/2007 11/11/2007 XEROSIS///SEBACEOUS GLAND DIS NEC 08/27/2007 11/11/2007 Sunburn 01/29/2007 11/11/2007 FOLLICULITIS///HAIR DISEASES NEC 12/17/2006 11/11/2007 RASH///NONSPECIF SKIN ERUPT NEC 12/17/2006 11/11/2007 documented as of this encounter (statuses as of 11/12/2021) [facility] of Past illness Narrative* Problem Noted Date Resolved Date Sebaceous cyst 08/27/2007 11/11/2007 XEROSIS///SEBACEOUS GLAND DIS NEC 08/27/2007 11/11/2007 Sunburn 01/29/2007 11/11/2007 FOLLICULITIS///HAIR DISEASES NEC 12/17/2006 11/11/2007 RASH///NONSPECIF SKIN ERUPT NEC 12/17/2006 11/11/2007 documented as of this encounter (statuses as of 11/20/2021) [facility] of Past [facility] Narrative* Problem Noted Date Resolved Date Sebaceous cyst 08/27/2007 11/11/2007 XEROSIS///SEBACEOUS GLAND DIS NEC 08/27/2007 11/11/2007 Sunburn 01/29/2007 11/11/2007 FOLLICULITIS///HAIR DISEASES NEC 12/17/2006 11/11/2007 RASH///NONSPECIF SKIN ERUPT NEC 12/17/2006 11/11/2007 documented as of this encounter (statuses as of 11/25/2021) [facility] of Past illness Narrative* Problem Noted Date Resolved Date Sebaceous cyst 08/27/2007 11/11/2007 XEROSIS///SEBACEOUS GLAND DIS NEC 08/27/2007 11/11/2007 Sunburn 01/29/2007 11/11/2007 FOLLICULITIS///HAIR DISEASES NEC 12/17/2006 11/11/2007 RASH///NONSPECIF SKIN ERUPT NEC 12/17/2006 11/11/2007 documented as of this encounter (statuses as of 12/02/2021) [facility] Narrative* Problem Noted Date Resolved Date Sebaceous cyst 08/27/2007 11/11/2007 XEROSIS///SEBACEOUS GLAND DIS NEC 08/27/2007 11/11/2007 Sunburn 01/29/2007 11/11/2007 FOLLICULITIS///HAIR DISEASES NEC 12/17/2006 11/11/2007 RASH///NONSPECIF SKIN ERUPT NEC 12/17/2006 11/11/2007 documented as of this encounter (statuses as of 12/06/2021) [facility] of Past illness Narrative* Problem Noted Date Resolved Date Sebaceous cyst 08/27/2007 11/11/2007 XEROSIS///SEBACEOUS GLAND DIS NEC 08/27/2007 11/11/2007 Sunburn 01/29/2007 11/11/2007 FOLLICULITIS///HAIR DISEASES NEC 12/17/2006 11/11/2007 RASH///NONSPECIF SKIN ERUPT NEC 12/17/2006 11/11/2007 documented as of this encounter (statuses as of 12/09/2021) [facility] Narrative* Problem Noted Date Resolved Date Sebaceous cyst 08/27/2007 11/11/2007 XEROSIS///SEBACEOUS GLAND DIS NEC 08/27/2007 11/11/2007 Sunburn 01/29/2007 11/11/2007 FOLLICULITIS///HAIR DISEASES NEC 12/17/2006 11/11/2007 RASH///NONSPECIF SKIN ERUPT NEC 12/17/2006 11/11/2007 documented as of this encounter (statuses as of 12/16/2021) [facility] Narrative* Problem Noted Date Resolved Date Sebaceous cyst 08/27/2007 11/11/2007 XEROSIS///SEBACEOUS GLAND DIS NEC 08/27/2007 11/11/2007 Sunburn 01/29/2007 11/11/2007 FOLLICULITIS///HAIR DISEASES NEC 12/17/2006 11/11/2007 RASH///NONSPECIF SKIN ERUPT NEC 12/17/2006 11/11/2007 documented as of this encounter (statuses as of 12/17/2021) [facility] Narrative* Problem Noted Date Resolved Date Sebaceous cyst 08/27/2007 11/11/2007 XEROSIS///SEBACEOUS GLAND DIS NEC 08/27/2007 11/11/2007 Sunburn 01/29/2007 11/11/2007 FOLLICULITIS///HAIR DISEASES NEC 12/17/2006 11/11/2007 RASH///NONSPECIF SKIN ERUPT NEC 12/17/2006 11/11/2007 documented as of this encounter (statuses as of 12/17/2021) [facility] Narrative* Problem Noted Date Resolved Date Sebaceous cyst 08/27/2007 11/11/2007 XEROSIS///SEBACEOUS GLAND DIS NEC 08/27/2007 11/11/2007 Sunburn 01/29/2007 11/11/2007 FOLLICULITIS///HAIR DISEASES NEC 12/17/2006 11/11/2007 RASH///NONSPECIF SKIN ERUPT NEC 12/17/2006 11/11/2007 documented as of this encounter (statuses as of 12/19/2021) [facility] Narrative* Problem Noted Date Resolved Date Sebaceous cyst 08/27/2007 11/11/2007 XEROSIS///SEBACEOUS GLAND DIS NEC 08/27/2007 11/11/2007 Sunburn 01/29/2007 11/11/2007 FOLLICULITIS///HAIR DISEASES NEC 12/17/2006 11/11/2007 RASH///NONSPECIF SKIN ERUPT NEC 12/17/2006 11/11/2007 documented as of this encounter (statuses as of 01/01/2022) [facility] Narrative* Problem Noted Date Resolved Date Sebaceous cyst 08/27/2007 11/11/2007 XEROSIS///SEBACEOUS GLAND DIS NEC 08/27/2007 11/11/2007 Sunburn 01/29/2007 11/11/2007 FOLLICULITIS///HAIR DISEASES NEC 12/17/2006 11/11/2007 RASH///NONSPECIF SKIN ERUPT NEC 12/17/2006 11/11/2007 documented as of this encounter (statuses as of 01/03/2022) [facility] Narrative* Problem Noted Date Resolved Date Sebaceous cyst 08/27/2007 11/11/2007 XEROSIS///SEBACEOUS GLAND DIS NEC 08/27/2007 11/11/2007 Sunburn 01/29/2007 11/11/2007 FOLLICULITIS///HAIR DISEASES NEC 12/17/2006 11/11/2007 RASH///NONSPECIF SKIN ERUPT NEC 12/17/2006 11/11/2007 documented as of this encounter (statuses as of 01/10/2022) [facility] Narrative* Problem Noted Date Resolved Date Sebaceous cyst 08/27/2007 11/11/2007 XEROSIS///SEBACEOUS GLAND DIS NEC 08/27/2007 11/11/2007 Sunburn 01/29/2007 11/11/2007 FOLLICULITIS///HAIR DISEASES NEC 12/17/2006 11/11/2007 RASH///NONSPECIF SKIN ERUPT NEC 12/17/2006 11/11/2007 documented as of this encounter (statuses as of 01/13/2022) [facility] Narrative* Problem Noted Date Resolved Date Sebaceous cyst 08/27/2007 11/11/2007 XEROSIS///SEBACEOUS GLAND DIS NEC 08/27/2007 11/11/2007 Sunburn 01/29/2007 11/11/2007 FOLLICULITIS///HAIR DISEASES NEC 12/17/2006 11/11/2007 RASH///NONSPECIF SKIN ERUPT NEC 12/17/2006 11/11/2007 documented as of this encounter (statuses as of 01/16/2022) [facility] Narrative* Problem Noted Date Resolved Date Sebaceous cyst 08/27/2007 11/11/2007 XEROSIS///SEBACEOUS GLAND DIS NEC 08/27/2007 11/11/2007 Sunburn 01/29/2007 11/11/2007 FOLLICULITIS///HAIR DISEASES NEC 12/17/2006 11/11/2007 RASH///NONSPECIF SKIN ERUPT NEC 12/17/2006 11/11/2007 documented as of this encounter (statuses as of 01/16/2022) [facility] Narrative* Problem Noted Date Resolved Date Sebaceous cyst 08/27/2007 11/11/2007 XEROSIS///SEBACEOUS GLAND DIS NEC 08/27/2007 11/11/2007 Sunburn 01/29/2007 11/11/2007 FOLLICULITIS///HAIR DISEASES NEC 12/17/2006 11/11/2007 RASH///NONSPECIF SKIN ERUPT NEC 12/17/2006 11/11/2007 documented as of this encounter (statuses as of 01/23/2022) [facility] Narrative* Problem Noted Date Resolved Date Sebaceous cyst 08/27/2007 11/11/2007 XEROSIS///SEBACEOUS GLAND DIS NEC 08/27/2007 11/11/2007 Sunburn 01/29/2007 11/11/2007 FOLLICULITIS///HAIR DISEASES NEC 12/17/2006 11/11/2007 RASH///NONSPECIF SKIN ERUPT NEC 12/17/2006 11/11/2007 documented as of this encounter (statuses as of 01/30/2022) [facility] Narrative* Problem Noted Date Resolved Date Sebaceous cyst 08/27/2007 11/11/2007 XEROSIS///SEBACEOUS GLAND DIS NEC 08/27/2007 11/11/2007 Sunburn 01/29/2007 11/11/2007 FOLLICULITIS///HAIR DISEASES NEC 12/17/2006 11/11/2007 RASH///NONSPECIF SKIN ERUPT NEC 12/17/2006 11/11/2007 documented as of this encounter (statuses as of 02/05/2022) [facility] Narrative* Problem Noted Date Resolved Date Sebaceous cyst 08/27/2007 11/11/2007 XEROSIS///SEBACEOUS GLAND DIS NEC 08/27/2007 11/11/2007 Sunburn 01/29/2007 11/11/2007 FOLLICULITIS///HAIR DISEASES NEC 12/17/2006 11/11/2007 RASH///NONSPECIF SKIN ERUPT NEC 12/17/2006 11/11/2007 documented as of this encounter (statuses as of 02/12/2022) [facility] Narrative* Problem Noted Date Resolved Date Sebaceous cyst 08/27/2007 11/11/2007 XEROSIS///SEBACEOUS GLAND DIS NEC 08/27/2007 11/11/2007 Sunburn 01/29/2007 11/11/2007 FOLLICULITIS///HAIR DISEASES NEC 12/17/2006 11/11/2007 RASH///NONSPECIF SKIN ERUPT NEC 12/17/2006 11/11/2007 documented as of this encounter (statuses as of 02/13/2022) [facility] Narrative* Problem Noted Date Resolved Date Sebaceous cyst 08/27/2007 11/11/2007 XEROSIS///SEBACEOUS GLAND DIS NEC 08/27/2007 11/11/2007 Sunburn 01/29/2007 11/11/2007 FOLLICULITIS///HAIR DISEASES NEC 12/17/2006 11/11/2007 RASH///NONSPECIF SKIN ERUPT NEC 12/17/2006 11/11/2007 documented as of this encounter (statuses as of 02/18/2022) [facility] Narrative* Problem Noted Date Resolved Date Sebaceous cyst 08/27/2007 11/11/2007 XEROSIS///SEBACEOUS GLAND DIS NEC 08/27/2007 11/11/2007 Sunburn 01/29/2007 11/11/2007 FOLLICULITIS///HAIR DISEASES NEC 12/17/2006 11/11/2007 RASH///NONSPECIF SKIN ERUPT NEC 12/17/2006 11/11/2007 documented as of this encounter (statuses as of 02/20/2022) [facility] Narrative* Problem Noted Date Resolved Date Sebaceous cyst 08/27/2007 11/11/2007 XEROSIS///SEBACEOUS GLAND DIS NEC 08/27/2007 11/11/2007 Sunburn 01/29/2007 11/11/2007 FOLLICULITIS///HAIR DISEASES NEC 12/17/2006 11/11/2007 RASH///NONSPECIF SKIN ERUPT NEC 12/17/2006 11/11/2007 documented as of this encounter (statuses as of 02/25/2022) [facility] Narrative* Problem Noted Date Resolved Date Sebaceous cyst 08/27/2007 11/11/2007 XEROSIS///SEBACEOUS GLAND DIS NEC 08/27/2007 11/11/2007 Sunburn 01/29/2007 11/11/2007 FOLLICULITIS///HAIR DISEASES NEC 12/17/2006 11/11/2007 RASH///NONSPECIF SKIN ERUPT NEC 12/17/2006 11/11/2007 documented as of this encounter (statuses as of 02/27/2022) [facility] Narrative* Problem Noted Date Resolved Date Sebaceous cyst 08/27/2007 11/11/2007 XEROSIS///SEBACEOUS GLAND DIS NEC 08/27/2007 11/11/2007 Sunburn 01/29/2007 11/11/2007 FOLLICULITIS///HAIR DISEASES NEC 12/17/2006 11/11/2007 RASH///NONSPECIF SKIN ERUPT NEC 12/17/2006 11/11/2007 documented as of this encounter (statuses as of 03/13/2022) [facility] Narrative* Problem Noted Date Resolved Date Sebaceous cyst 08/27/2007 11/11/2007 XEROSIS///SEBACEOUS GLAND DIS NEC 08/27/2007 11/11/2007 Sunburn 01/29/2007 11/11/2007 FOLLICULITIS///HAIR DISEASES NEC 12/17/2006 11/11/2007 RASH///NONSPECIF SKIN ERUPT NEC 12/17/2006 11/11/2007 documented as of this encounter (statuses as of 03/21/2022) [facility] Narrative* Problem Noted Date Resolved Date Sebaceous cyst 08/27/2007 11/11/2007 XEROSIS///SEBACEOUS GLAND DIS NEC 08/27/2007 11/11/2007 Sunburn 01/29/2007 11/11/2007 FOLLICULITIS///HAIR DISEASES NEC 12/17/2006 11/11/2007 RASH///NONSPECIF SKIN ERUPT NEC 12/17/2006 11/11/2007 documented as of this encounter (statuses as of 03/21/2022) [facility] Narrative* Problem Noted Date Resolved Date Sebaceous cyst 08/27/2007 11/11/2007 XEROSIS///SEBACEOUS GLAND DIS NEC 08/27/2007 11/11/2007 Sunburn 01/29/2007 11/11/2007 FOLLICULITIS///HAIR DISEASES NEC 12/17/2006 11/11/2007 RASH///NONSPECIF SKIN ERUPT NEC 12/17/2006 11/11/2007 documented as of this encounter (statuses as of 04/03/2022) [facility]arrative* Problem Noted Date Resolved Date Sebaceous cyst 08/27/2007 11/11/2007 XEROSIS///SEBACEOUS GLAND DIS NEC 08/27/2007 11/11/2007 Sunburn 01/29/2007 11/11/2007 FOLLICULITIS///HAIR DISEASES NEC 12/17/2006 11/11/2007 RASH///NONSPECIF SKIN ERUPT NEC 12/17/2006 11/11/2007 documented as of this encounter (statuses as of 04/04/2022) [facility]arrative* Problem Noted Date Resolved Date Sebaceous cyst 08/27/2007 11/11/2007 XEROSIS///SEBACEOUS GLAND DIS NEC 08/27/2007 11/11/2007 Sunburn 01/29/2007 11/11/2007 FOLLICULITIS///HAIR DISEASES NEC 12/17/2006 11/11/2007 RASH///NONSPECIF SKIN ERUPT NEC 12/17/2006 11/11/2007 documented as of this encounter (statuses as of 04/08/2022) [facility]arrative* Problem Noted Date Resolved Date Sebaceous cyst 08/27/2007 11/11/2007 XEROSIS///SEBACEOUS GLAND DIS NEC 08/27/2007 11/11/2007 Sunburn 01/29/2007 11/11/2007 FOLLICULITIS///HAIR DISEASES NEC 12/17/2006 11/11/2007 RASH///NONSPECIF SKIN ERUPT NEC 12/17/2006 11/11/2007 documented as of this encounter (statuses as of 04/16/2022) [facility]arrative* Problem Noted Date Resolved Date Sebaceous cyst 08/27/2007 11/11/2007 XEROSIS///SEBACEOUS GLAND DIS NEC 08/27/2007 11/11/2007 Sunburn 01/29/2007 11/11/2007 FOLLICULITIS///HAIR DISEASES NEC 12/17/2006 11/11/2007 RASH///NONSPECIF SKIN ERUPT NEC 12/17/2006 11/11/2007 documented as of this encounter (statuses as of 04/25/2022) [facility]arrative* Problem Noted Date Resolved Date Sebaceous cyst 08/27/2007 11/11/2007 XEROSIS///SEBACEOUS GLAND DIS NEC 08/27/2007 11/11/2007 Sunburn 01/29/2007 11/11/2007 FOLLICULITIS///HAIR DISEASES NEC 12/17/2006 11/11/2007 RASH///NONSPECIF SKIN ERUPT NEC 12/17/2006 11/11/2007 documented as of this encounter (statuses as of 04/29/2022) [facility]arrative* Problem Noted Date Resolved Date Sebaceous cyst 08/27/2007 11/11/2007 XEROSIS///SEBACEOUS GLAND DIS NEC 08/27/2007 11/11/2007 Sunburn 01/29/2007 11/11/2007 FOLLICULITIS///HAIR DISEASES NEC 12/17/2006 11/11/2007 RASH///NONSPECIF SKIN ERUPT NEC 12/17/2006 11/11/2007 documented as of this encounter (statuses as of 05/02/2022) [facility]arr[facility]* Problem Noted Date Resolved Date Sebaceous cyst 08/27/2007 11/11/2007 XEROSIS///SEBACEOUS GLAND DIS NEC 08/27/2007 11/11/2007 [place]burn 01/29/2007 11/11/2007 FOLLICULITIS///HAIR DISEASES NEC 12/17/2006 11/11/2007 RASH///NONSPECIF SKIN ERUPT NEC 12/17/2006 11/11/2007 documented as of this encounter (statuses as of 05/03/2022) [facility]arrative* Problem Noted Date Resolved Date Sebaceous cyst 08/27/2007 11/11/2007 XEROSIS///SEBACEOUS GLAND DIS NEC 08/27/2007 11/11/2007 [place]burn 01/29/2007 11/11/2007 FOLLICULITIS///HAIR DISEASES NEC 12/17/2006 11/11/2007 RASH///NONSPECIF SKIN ERUPT NEC 12/17/2006 11/11/2007 documented as of this encounter (statuses as of 05/05/2022) [facility] Narrative* Problem Noted Date Resolved Date Sebaceous cyst 08/27/2007 11/11/2007 XEROSIS///SEBACEOUS GLAND DIS NEC 08/27/2007 11/11/2007 [place]burn 01/29/2007 11/11/2007 FOLLICULITIS///HAIR DISEASES NEC 12/17/2006 11/11/2007 RASH///NONSPECIF SKIN ERUPT NEC 12/17/2006 11/11/2007 documented as of this encounter (statuses as of 05/06/2022) [facility] Narrative* Problem Noted Date Resolved Date Sebaceous cyst 08/27/2007 11/11/2007 XEROSIS///SEBACEOUS GLAND DIS NEC 08/27/2007 11/11/2007 [place]burn 01/29/2007 11/11/2007 FOLLICULITIS///HAIR DISEASES NEC 12/17/2006 11/11/2007 RASH///NONSPECIF SKIN ERUPT NEC 12/17/2006 11/11/2007 documented as of this encounter (statuses as of 05/06/2022) [facility] Narrative* Problem Noted Date Resolved Date Sebaceous cyst 08/27/2007 11/11/2007 XEROSIS///SEBACEOUS GLAND DIS NEC 08/27/2007 11/11/2007 [place]burn 01/29/2007 11/11/2007 FOLLICULITIS///HAIR DISEASES NEC 12/17/2006 11/11/2007 RASH///NONSPECIF SKIN ERUPT NEC 12/17/2006 11/11/2007 documented as of this encounter (statuses as of 05/15/2022) [facility] Narrative* Problem Noted Date Resolved Date Sebaceous cyst 08/27/2007 11/11/2007 XEROSIS///SEBACEOUS GLAND DIS NEC 08/27/2007 11/11/2007 [place]burn 01/29/2007 11/11/2007 FOLLICULITIS///HAIR DISEASES NEC 12/17/2006 11/11/2007 RASH///NONSPECIF SKIN ERUPT NEC 12/17/2006 11/11/2007 documented as of this encounter (statuses as of 05/16/2022) [facility] Narrative* Problem Noted Date Resolved Date Sebaceous cyst 08/27/2007 11/11/2007 XEROSIS///SEBACEOUS GLAND DIS NEC 08/27/2007 11/11/2007 [place]burn 01/29/2007 11/11/2007 FOLLICULITIS///HAIR DISEASES NEC 12/17/2006 11/11/2007 RASH///NONSPECIF SKIN ERUPT NEC 12/17/2006 11/11/2007 documented as of this encounter (statuses as of 05/22/2022) [facility] Narr[facility]* Problem Noted Date Resolved Date Sebaceous cyst 08/27/2007 11/11/2007 XEROSIS///SEBACEOUS GLAND DIS NEC 08/27/2007 11/11/2007 [place]burn 01/29/2007 11/11/2007 FOLLICULITIS///HAIR DISEASES NEC 12/17/2006 11/11/2007 RASH///NONSPECIF SKIN ERUPT NEC 12/17/2006 11/11/2007 documented as of this encounter (statuses as of 05/27/2022) [facility] Narrative* Problem Noted Date Resolved Date Sebaceous cyst 08/27/2007 11/11/2007 XEROSIS///SEBACEOUS GLAND DIS NEC 08/27/2007 11/11/2007 [place]burn 01/29/2007 11/11/2007 FOLLICULITIS///HAIR DISEASES NEC 12/17/2006 11/11/2007 RASH///NONSPECIF SKIN ERUPT NEC 12/17/2006 11/11/2007 documented as of this encounter (statuses as of 05/28/2022) [facility] Narrative* Problem Noted Date Resolved Date Sebaceous cyst 08/27/2007 11/11/2007 XEROSIS///SEBACEOUS GLAND DIS NEC 08/27/2007 11/11/2007 [place]burn 01/29/2007 11/11/2007 FOLLICULITIS///HAIR DISEASES NEC 12/17/2006 11/11/2007 RASH///NONSPECIF SKIN ERUPT NEC 12/17/2006 11/11/2007 documented as of this encounter (statuses as of 05/28/2022) [facility]* Problem Noted Date Resolved Date Sebaceous cyst 08/27/2007 11/11/2007 XEROSIS///SEBACEOUS GLAND DIS NEC 08/27/2007 11/11/2007 [place]burn 01/29/2007 11/11/2007 FOLLICULITIS///HAIR DISEASES NEC 12/17/2006 11/11/2007 RASH///NONSPECIF SKIN ERUPT NEC 12/17/2006 11/11/2007 documented as of this encounter (statuses as of 06/02/2022) [facility] History of Past illness Narrative* Problem Noted Date Resolved Date Sebaceous cyst 08/27/2007 11/11/2007 XEROSIS///SEBACEOUS GLAND DIS NEC 08/27/2007 11/11/2007 Sunburn 01/29/2007 11/11/2007 FOLLICULITIS///HAIR DISEASES NEC 12/17/2006 11/11/2007 RASH///NONSPECIF SKIN ERUPT NEC 12/17/2006 11/11/2007 documented as of this encounter (statuses as of 06/05/2022) [facility] [facility] History of Past illness Narrative* Problem Noted Date Resolved Date Sebaceous cyst 08/27/2007 11/11/2007 XEROSIS///SEBACEOUS GLAND DIS NEC 08/27/2007 11/11/2007 Sunburn 01/29/2007 11/11/2007 FOLLICULITIS///HAIR DISEASES NEC 12/17/2006 11/11/2007 RASH///NONSPECIF SKIN ERUPT NEC 12/17/2006 11/11/2007 documented as of this encounter (statuses as of 07/14/2022) [facility] History of Past illness Narrative* Problem Noted Date Resolved Date Sebaceous cyst 08/27/2007 11/11/2007 XEROSIS///SEBACEOUS GLAND DIS NEC 08/27/2007 11/11/2007 Sunburn 01/29/2007 11/11/2007 FOLLICULITIS///HAIR DISEASES NEC 12/17/2006 11/11/2007 RASH///NONSPECIF SKIN ERUPT NEC 12/17/2006 11/11/2007 documented as of this encounter (statuses as of 07/14/2022) [facility] History of Past illness Narrative* Problem Noted Date Resolved Date Sebaceous cyst 08/27/2007 11/11/2007 XEROSIS///SEBACEOUS GLAND DIS NEC 08/27/2007 11/11/2007 Sunburn 01/29/2007 11/11/2007 FOLLICULITIS///HAIR DISEASES NEC 12/17/2006 11/11/2007 RASH///NONSPECIF SKIN ERUPT NEC 12/17/2006 11/11/2007 documented as of this encounter (statuses as of 07/15/2022) [facility] History of Past illness Narrative* Problem Noted Date Resolved Date Sebaceous cyst 08/27/2007 11/11/2007 XEROSIS///SEBACEOUS GLAND DIS NEC 08/27/2007 11/11/2007 Sunburn 01/29/2007 11/11/2007 FOLLICULITIS///HAIR DISEASES NEC 12/17/2006 11/11/2007 RASH///NONSPECIF SKIN ERUPT NEC 12/17/2006 11/11/2007 documented as of this encounter (statuses as of 09/04/2022) [facility] History of Past illness Narrative* Problem Noted Date Resolved Date Sebaceous cyst 08/27/2007 11/11/2007 XEROSIS///SEBACEOUS GLAND DIS NEC 08/27/2007 11/11/2007 Sunburn 01/29/2007 11/11/2007 FOLLICULITIS///HAIR DISEASES NEC 12/17/2006 11/11/2007 RASH///NONSPECIF SKIN ERUPT NEC 12/17/2006 11/11/2007 documented as of this encounter (statuses as of 09/11/2022) [facility] History of Past illness Narrative* Problem Noted Date Resolved Date Sebaceous cyst 08/27/2007 11/11/2007 XEROSIS///SEBACEOUS GLAND DIS NEC 08/27/2007 11/11/2007 Sunburn 01/29/2007 11/11/2007 FOLLICULITIS///HAIR DISEASES NEC 12/17/2006 11/11/2007 RASH///NONSPECIF SKIN ERUPT NEC 12/17/2006 11/11/2007 documented as of this encounter (statuses as of 09/16/2022) [facility] History of Past illness Narrative* Problem Noted Date Resolved Date Sebaceous cyst 08/27/2007 11/11/2007 XEROSIS///SEBACEOUS GLAND DIS NEC 08/27/2007 11/11/2007 Sunburn 01/29/2007 11/11/2007 FOLLICULITIS///HAIR DISEASES NEC 12/17/2006 11/11/2007 RASH///NONSPECIF SKIN ERUPT NEC 12/17/2006 11/11/2007 documented as of this encounter (statuses as of 09/18/2022) [facility] History of Past illness Narrative* Problem Noted Date Resolved Date Sebaceous cyst 08/27/2007 11/11/2007 XEROSIS///SEBACEOUS GLAND DIS NEC 08/27/2007 11/11/2007 Sunburn 01/29/2007 11/11/2007 FOLLICULITIS///HAIR DISEASES NEC 12/17/2006 11/11/2007 RASH///NONSPECIF SKIN ERUPT NEC 12/17/2006 11/11/2007 documented as of this encounter (statuses as of 09/19/2022) [facility] History of Past illness Narrative* Problem Noted Date Resolved Date Sebaceous cyst 08/27/2007 11/11/2007 XEROSIS///SEBACEOUS GLAND DIS NEC 08/27/2007 11/11/2007 Sunburn 01/29/2007 11/11/2007 FOLLICULITIS///HAIR DISEASES NEC 12/17/2006 11/11/2007 RASH///NONSPECIF SKIN ERUPT NEC 12/17/2006 11/11/2007 documented as of this encounter (statuses as of 09/19/2022) [facility] History of Past illness Narrative* Problem Noted Date Resolved Date Sebaceous cyst 08/27/2007 11/11/2007 XEROSIS///SEBACEOUS GLAND DIS NEC 08/27/2007 11/11/2007 Sunburn 01/29/2007 11/11/2007 FOLLICULITIS///HAIR DISEASES NEC 12/17/2006 11/11/2007 RASH///NONSPECIF SKIN ERUPT NEC 12/17/2006 11/11/2007 documented as of this encounter (statuses as of 09/25/2022) [facility] History of Past illness Narrative* Problem Noted Date Resolved Date Sebaceous cyst 08/27/2007 11/11/2007 XEROSIS///SEBACEOUS GLAND DIS NEC 08/27/2007 11/11/2007 Sunburn 01/29/2007 11/11/2007 FOLLICULITIS///HAIR DISEASES NEC 12/17/2006 11/11/2007 RASH///NONSPECIF SKIN ERUPT NEC 12/17/2006 11/11/2007 documented as of this encounter (statuses as of 10/01/2022) [facility] History of Past illness Narrative* Problem Noted Date Resolved Date Sebaceous cyst 08/27/2007 11/11/2007 XEROSIS///SEBACEOUS GLAND DIS NEC 08/27/2007 11/11/2007 Sunburn 01/29/2007 11/11/2007 FOLLICULITIS///HAIR DISEASES NEC 12/17/2006 11/11/2007 RASH///NONSPECIF SKIN ERUPT NEC 12/17/2006 11/11/2007 documented as of this encounter (statuses as of 10/02/2022) [facility] History of Past illness Narrative* Problem Noted Date Resolved Date Sebaceous cyst 08/27/2007 11/11/2007 XEROSIS///SEBACEOUS GLAND DIS NEC 08/27/2007 11/11/2007 Sunburn 01/29/2007 11/11/2007 FOLLICULITIS///HAIR DISEASES NEC 12/17/2006 11/11/2007 RASH///NONSPECIF SKIN ERUPT NEC 12/17/2006 11/11/2007 documented as of this encounter (statuses as of 10/08/2022) [facility] History of Past illness Narrative* Problem Noted Date Resolved Date Sebaceous cyst 08/27/2007 11/11/2007 XEROSIS///SEBACEOUS GLAND DIS NEC 08/27/2007 11/11/2007 Sunburn 01/29/2007 11/11/2007 FOLLICULITIS///HAIR DISEASES NEC 12/17/2006 11/11/2007 RASH///NONSPECIF SKIN ERUPT NEC 12/17/2006 11/11/2007 documented as of this encounter (statuses as of 10/15/2022) [facility] History of Past illness Narrative* Problem Noted Date Resolved Date Sebaceous cyst 08/27/2007 11/11/2007 XEROSIS///SEBACEOUS GLAND DIS NEC 08/27/2007 11/11/2007 Sunburn 01/29/2007 11/11/2007 FOLLICULITIS///HAIR DISEASES NEC 12/17/2006 11/11/2007 RASH///NONSPECIF SKIN ERUPT NEC 12/17/2006 11/11/2007 documented as of this encounter (statuses as of 10/29/2022) [facility] History of Past illness Narrative* Problem Noted Date Resolved Date Sebaceous cyst 08/27/2007 11/11/2007 XEROSIS///SEBACEOUS GLAND DIS NEC 08/27/2007 11/11/2007 Sunburn 01/29/2007 11/11/2007 FOLLICULITIS///HAIR DISEASES NEC 12/17/2006 11/11/2007 RASH///NONSPECIF SKIN ERUPT NEC 12/17/2006 11/11/2007 documented as of this encounter (statuses as of 10/29/2022) [facility] History of Past illness Narrative* Problem Noted Date Resolved Date Sebaceous cyst 08/27/2007 11/11/2007 XEROSIS///SEBACEOUS GLAND DIS NEC 08/27/2007 11/11/2007 Sunburn 01/29/2007 11/11/2007 FOLLICULITIS///HAIR DISEASES NEC 12/17/2006 11/11/2007 RASH///NONSPECIF SKIN ERUPT NEC 12/17/2006 11/11/2007 documented as of this encounter (statuses as of 10/31/2022) [facility] History of Past illness Narrative* Problem Noted Date Resolved Date Sebaceous cyst 08/27/2007 11/11/2007 XEROSIS///SEBACEOUS GLAND DIS NEC 08/27/2007 11/11/2007 Sunburn 01/29/2007 11/11/2007 FOLLICULITIS///HAIR DISEASES NEC 12/17/2006 11/11/2007 RASH///NONSPECIF SKIN ERUPT NEC 12/17/2006 11/11/2007 documented as of this encounter (statuses as of 10/31/2022) [facility] History of Past illness Narrative* Problem Noted Date Resolved Date Sebaceous cyst 08/27/2007 11/11/2007 XEROSIS///SEBACEOUS GLAND DIS NEC 08/27/2007 11/11/2007 Sunburn 01/29/2007 11/11/2007 FOLLICULITIS///HAIR DISEASES NEC 12/17/2006 11/11/2007 RASH///NONSPECIF SKIN ERUPT NEC 12/17/2006 11/11/2007 documented as of this encounter (statuses as of 10/31/2022) [facility] History of Past illness Narrative* Problem Noted Date Resolved Date Sebaceous cyst 08/27/2007 11/11/2007 XEROSIS///SEBACEOUS GLAND DIS NEC 08/27/2007 11/11/2007 Sunburn 01/29/2007 11/11/2007 FOLLICULITIS///HAIR DISEASES NEC 12/17/2006 11/11/2007 RASH///NONSPECIF SKIN ERUPT NEC 12/17/2006 11/11/2007 documented as of this encounter (statuses as of 11/01/2022) [facility] History of Past illness Narrative* Problem Noted Date Resolved Date Sebaceous cyst 08/27/2007 11/11/2007 XEROSIS///SEBACEOUS GLAND DIS NEC 08/27/2007 11/11/2007 Sunburn 01/29/2007 11/11/2007 FOLLICULITIS///HAIR DISEASES NEC 12/17/2006 11/11/2007 RASH///NONSPECIF SKIN ERUPT NEC 12/17/2006 11/11/2007 documented as of this encounter (statuses as of 11/04/2022) [facility] History of Past illness Narrative* Problem Noted Date Resolved Date Sebaceous cyst 08/27/2007 11/11/2007 XEROSIS///SEBACEOUS GLAND DIS NEC 08/27/2007 11/11/2007 Sunburn 01/29/2007 11/11/2007 FOLLICULITIS///HAIR DISEASES NEC 12/17/2006 11/11/2007 RASH///NONSPECIF SKIN ERUPT NEC 12/17/2006 11/11/2007 documented as of this encounter (statuses as of 11/04/2022) [facility] History of Past illness Narrative* Problem Noted Date Resolved Date Sebaceous cyst 08/27/2007 11/11/2007 XEROSIS///SEBACEOUS GLAND DIS NEC 08/27/2007 11/11/2007 Sunburn 01/29/2007 11/11/2007 FOLLICULITIS///HAIR DISEASES NEC 12/17/2006 11/11/2007 RASH///NONSPECIF SKIN ERUPT NEC 12/17/2006 11/11/2007 documented as of this encounter (statuses as of 11/05/2022) [facility] History of Past illness Narrative* Problem Noted Date Resolved Date Sebaceous cyst 08/27/2007 11/11/2007 XEROSIS///SEBACEOUS GLAND DIS NEC 08/27/2007 11/11/2007 [place]burn 01/29/2007 11/11/2007 FOLLICULITIS///HAIR DISEASES NEC 12/17/2006 11/11/2007 RASH///NONSPECIF SKIN ERUPT NEC 12/17/2006 11/11/2007 documented as of this encounter (statuses as of 11/07/2022) [address]25-2008 History of Past illness Narrative* Problem Noted Date Resolved Date Sebaceous cyst 08/27/2007 11/11/2007 XEROSIS///SEBACEOUS GLAND DIS NEC 08/27/2007 11/11/2007 Sunburn 01/29/2007 11/11/2007 FOLLICULITIS///HAIR DISEASES NEC 12/17/2006 11/11/2007 RASH///NONSPECIF SKIN ERUPT NEC 12/17/2006 11/11/2007 documented as of this encounter (statuses as of 11/11/2022) [facility] History of Past illness Narrative* Problem Noted Date Resolved Date Sebaceous cyst 08/27/2007 11/11/2007 XEROSIS///SEBACEOUS GLAND DIS NEC 08/27/2007 11/11/2007 [place]burn 01/29/2007 11/11/2007 FOLLICULITIS///HAIR DISEASES NEC 12/17/2006 11/11/2007 RASH///NONSPECIF SKIN ERUPT NEC 12/17/2006 11/11/2007 documented as of this encounter (statuses as of 11/11/2022) [facility] History of Past illness Narrative* Problem Noted Date Resolved Date Sebaceous cyst 08/27/2007 11/11/2007 XEROSIS///SEBACEOUS GLAND DIS NEC 08/27/2007 11/11/2007 [place]burn 01/29/2007 11/11/2007 FOLLICULITIS///HAIR DISEASES NEC 12/17/2006 11/11/2007 RASH///NONSPECIF SKIN ERUPT NEC 12/17/2006 11/11/2007 documented as of this encounter (statuses as of 11/12/2022) [facility] History of Past illness Narrative* Problem Noted Date Resolved Date Sebaceous cyst 08/27/2007 11/11/2007 XEROSIS///SEBACEOUS GLAND DIS NEC 08/27/2007 11/11/2007 [place]burn 01/29/2007 11/11/2007 FOLLICULITIS///HAIR DISEASES NEC 12/17/2006 11/11/2007 RASH///NONSPECIF SKIN ERUPT NEC 12/17/2006 11/11/2007 documented as of this encounter (statuses as of 11/14/2022) [facility] History of Past illness Narrative* Problem Noted Date Resolved Date Sebaceous cyst 08/27/2007 11/11/2007 XEROSIS///SEBACEOUS GLAND DIS NEC 08/27/2007 11/11/2007 [place] 01/29/2007 11/11/2007 FOLLICULITIS///HAIR DISEASES NEC 12/17/2006 11/11/2007 RASH///NONSPECIF SKIN ERUPT NEC 12/17/2006 11/11/2007 documented as of this encounter (statuses as of 11/14/2022) [facility] History of Past illness Narrative* Problem Noted Date Resolved Date Sebaceous cyst 08/27/2007 11/11/2007 XEROSIS///SEBACEOUS GLAND DIS NEC 08/27/2007 11/11/2007 [place] 01/29/2007 11/11/2007 FOLLICULITIS///HAIR DISEASES NEC 12/17/2006 11/11/2007 RASH///NONSPECIF SKIN ERUPT NEC 12/17/2006 11/11/2007 documented as of this encounter (statuses as of 11/15/2022) [facility] History of Past illness Narrative* Problem Noted Date Resolved Date Sebaceous cyst 08/27/2007 11/11/2007 XEROSIS///SEBACEOUS GLAND DIS NEC 08/27/2007 11/11/2007 [place] 01/29/2007 11/11/2007 FOLLICULITIS///HAIR DISEASES NEC 12/17/2006 11/11/2007 RASH///NONSPECIF SKIN ERUPT NEC 12/17/2006 11/11/2007 documented as of this encounter (statuses as of 11/17/2022) [facility] History of Past illness Narrative* Problem Noted Date Resolved Date Sebaceous cyst 08/27/2007 11/11/2007 XEROSIS///SEBACEOUS GLAND DIS NEC 08/27/2007 11/11/2007 [place] 01/29/2007 11/11/2007 FOLLICULITIS///HAIR DISEASES NEC 12/17/2006 11/11/2007 RASH///NONSPECIF SKIN ERUPT NEC 12/17/2006 11/11/2007 documented as of this encounter (statuses as of 11/26/2022) [facility] History of Past illness Narrative* Problem Noted Date Resolved Date Sebaceous cyst 08/27/2007 11/11/2007 XEROSIS///SEBACEOUS GLAND DIS NEC 08/27/2007 11/11/2007 [place] 01/29/2007 11/11/2007 FOLLICULITIS///HAIR DISEASES NEC 12/17/2006 11/11/2007 RASH///NONSPECIF SKIN ERUPT NEC 12/17/2006 11/11/2007 documented as of this encounter (statuses as of 11/27/2022) [facility] History of Past illness Narrative* Problem Noted Date Resolved Date Sebaceous cyst 08/27/2007 11/11/2007 XEROSIS///SEBACEOUS GLAND DIS NEC 08/27/2007 11/11/2007 [place] 01/29/2007 11/11/2007 FOLLICULITIS///HAIR DISEASES NEC 12/17/2006 11/11/2007 RASH///NONSPECIF SKIN ERUPT NEC 12/17/2006 11/11/2007 documented as of this encounter (statuses as of 11/28/2022) [facility] History of Past illness Narrative* Problem Noted Date Resolved Date Sebaceous cyst 08/27/2007 11/11/2007 XEROSIS///SEBACEOUS GLAND DIS NEC 08/27/2007 11/11/2007 [place] 01/29/2007 11/11/2007 FOLLICULITIS///HAIR DISEASES NEC 12/17/2006 11/11/2007 RASH///NONSPECIF SKIN ERUPT NEC 12/17/2006 11/11/2007 documented as of this encounter (statuses as of 11/28/2022) [facility] History of Past illness Narrative* Problem Noted Date Resolved Date Sebaceous cyst 08/27/2007 11/11/2007 XEROSIS///SEBACEOUS GLAND DIS NEC 08/27/2007 11/11/2007 [place] 01/29/2007 11/11/2007 FOLLICULITIS///HAIR DISEASES NEC 12/17/2006 11/11/2007 RASH///NONSPECIF SKIN ERUPT NEC 12/17/2006 11/11/2007 documented as of this encounter (statuses as of 12/04/2022) [facility] History of Past illness Narrative* Problem Noted Date Resolved Date Sebaceous cyst 08/27/2007 11/11/2007 XEROSIS///SEBACEOUS GLAND DIS NEC 08/27/2007 11/11/2007 [place] 01/29/2007 11/11/2007 FOLLICULITIS///HAIR DISEASES NEC 12/17/2006 11/11/2007 RASH///NONSPECIF SKIN ERUPT NEC 12/17/2006 11/11/2007 documented as of this encounter (statuses as of 12/10/2022) [facility] History of Past illness Narrative* Problem Noted Date Resolved Date Sebaceous cyst 08/27/2007 11/11/2007 XEROSIS///SEBACEOUS GLAND DIS NEC 08/27/2007 11/11/2007 [place] 01/29/2007 11/11/2007 FOLLICULITIS///HAIR DISEASES NEC 12/17/2006 11/11/2007 RASH///NONSPECIF SKIN ERUPT NEC 12/17/2006 11/11/2007 documented as of this encounter (statuses as of 12/12/2022) [facility] History of Past illness Narrative* Problem Noted Date Resolved Date Sebaceous cyst 08/27/2007 11/11/2007 XEROSIS///SEBACEOUS GLAND DIS NEC 08/27/2007 11/11/2007 [place] 01/29/2007 11/11/2007 FOLLICULITIS///HAIR DISEASES NEC 12/17/2006 11/11/2007 RASH///NONSPECIF SKIN ERUPT NEC 12/17/2006 11/11/2007 documented as of this encounter (statuses as of 12/30/2022) [facility] History of Past illness Narrative* Problem Noted Date Resolved Date Sebaceous cyst 08/27/2007 11/11/2007 XEROSIS///SEBACEOUS GLAND DIS NEC 08/27/2007 11/11/2007 [place] 01/29/2007 11/11/2007 FOLLICULITIS///HAIR DISEASES NEC 12/17/2006 11/11/2007 RASH///NONSPECIF SKIN ERUPT NEC 12/17/2006 11/11/2007 documented as of this encounter (statuses as of 01/03/2023) [facility] History of Past illness Narrative* Problem Noted Date Resolved Date Sebaceous cyst 08/27/2007 11/11/2007 XEROSIS///SEBACEOUS GLAND DIS NEC 08/27/2007 11/11/2007 [place] 01/29/2007 11/11/2007 FOLLICULITIS///HAIR DISEASES NEC 12/17/2006 11/11/2007 RASH///NONSPECIF SKIN ERUPT NEC 12/17/2006 11/11/2007 documented as of this encounter (statuses as of 01/07/2023) [facility] History of Past illness Narrative* Problem Noted Date Resolved Date Sebaceous cyst 08/27/2007 11/11/2007 XEROSIS///SEBACEOUS GLAND DIS NEC 08/27/2007 11/11/2007 [place] 01/29/2007 11/11/2007 FOLLICULITIS///HAIR DISEASES NEC 12/17/2006 11/11/2007 RASH///NONSPECIF SKIN ERUPT NEC 12/17/2006 11/11/2007 documented as of this encounter (statuses as of 01/19/2023) [facility] History of Past illness Narrative* Problem Noted Date Resolved Date Sebaceous cyst 08/27/2007 11/11/2007 XEROSIS///SEBACEOUS GLAND DIS NEC 08/27/2007 11/11/2007 [place] 01/29/2007 11/11/2007 FOLLICULITIS///HAIR DISEASES NEC 12/17/2006 11/11/2007 RASH///NONSPECIF SKIN ERUPT NEC 12/17/2006 11/11/2007 documented as of this encounter (statuses as of 01/20/2023) [facility] History of Past illness Narrative* Problem Noted Date Resolved Date Sebaceous cyst 08/27/2007 11/11/2007 XEROSIS///SEBACEOUS GLAND DIS NEC 08/27/2007 11/11/2007 [place] 01/29/2007 11/11/2007 FOLLICULITIS///HAIR DISEASES NEC 12/17/2006 11/11/2007 RASH///NONSPECIF SKIN ERUPT NEC 12/17/2006 11/11/2007 documented as of this encounter (statuses as of 01/30/2023) [facility] History of Past illness Narrative* Problem Noted Date Resolved Date Sebaceous cyst 08/27/2007 11/11/2007 XEROSIS///SEBACEOUS GLAND DIS NEC 08/27/2007 11/11/2007 [place] 01/29/2007 11/11/2007 FOLLICULITIS///HAIR DISEASES NEC 12/17/2006 11/11/2007 RASH///NONSPECIF SKIN ERUPT NEC 12/17/2006 11/11/2007 documented as of this encounter (statuses as of 02/03/2023) [facility] History of Past illness Narrative* Problem Noted Date Resolved Date Sebaceous cyst 08/27/2007 11/11/2007 XEROSIS///SEBACEOUS GLAND DIS NEC 08/27/2007 11/11/2007 [place] 01/29/2007 11/11/2007 FOLLICULITIS///HAIR DISEASES NEC 12/17/2006 11/11/2007 RASH///NONSPECIF SKIN ERUPT NEC 12/17/2006 11/11/2007 documented as of this encounter (statuses as of 02/06/2023) [facility] History of Past illness Narrative* Problem Noted Date Resolved Date Sebaceous cyst 08/27/2007 11/11/2007 XEROSIS///SEBACEOUS GLAND DIS NEC 08/27/2007 11/11/2007 [place] 01/29/2007 11/11/2007 FOLLICULITIS///HAIR DISEASES NEC 12/17/2006 11/11/2007 RASH///NONSPECIF SKIN ERUPT NEC 12/17/2006 11/11/2007 documented as of this encounter (statuses as of 02/06/2023) [facility] History of Past illness Narrative* Problem Noted Date Diagnosed Date Resolved Date Sebaceous cyst 08/27/2007 11/11/2007 XEROSIS///SEBACEOUS GLAND DIS NEC 08/27/2007 11/11/2007 [place] 01/29/2007 11/11/2007 FOLLICULITIS///HAIR DISEASES NEC 12/17/2006 11/11/2007 RASH///NONSPECIF SKIN ERUPT NEC 12/17/2006 11/11/2007 documented as of this encounter (statuses as of 02/19/2023) [facility] History of Past illness Narrative* Problem Noted Date Diagnosed Date Resolved Date Sebaceous cyst 08/27/2007 11/11/2007 XEROSIS///SEBACEOUS GLAND DIS NEC 08/27/2007 11/11/2007 [place] 01/29/2007 11/11/2007 FOLLICULITIS///HAIR DISEASES NEC 12/17/2006 11/11/2007 RASH///NONSPECIF SKIN ERUPT NEC 12/17/2006 11/11/2007 documented as of this encounter (statuses as of 03/09/2023) [facility] of Past illness Narrative* Problem Noted Date Diagnosed Date Resolved Date Sebaceous cyst 08/27/2007 11/11/2007 XEROSIS///SEBACEOUS GLAND DIS NEC 08/27/2007 11/11/2007 [place] 01/29/2007 11/11/2007 FOLLICULITIS///HAIR DISEASES NEC 12/17/2006 11/11/2007 RASH///NONSPECIF SKIN ERUPT NEC 12/17/2006 11/11/2007 documented as of this encounter (statuses as of 03/10/2023) [facility] of Past illness Narrative* Problem Noted Date Diagnosed Date Resolved Date Sebaceous cyst 08/27/2007 11/11/2007 XEROSIS///SEBACEOUS GLAND DIS NEC 08/27/2007 11/11/2007 [place] 01/29/2007 11/11/2007 FOLLICULITIS///HAIR DISEASES NEC 12/17/2006 11/11/2007 RASH///NONSPECIF SKIN ERUPT NEC 12/17/2006 11/11/2007 documented as of this encounter (statuses as of 03/11/2023) [facility] History of Past illness Narrative* Problem Noted Date Diagnosed Date Resolved Date Sebaceous cyst 08/27/2007 11/11/2007 XEROSIS///SEBACEOUS GLAND DIS NEC 08/27/2007 11/11/2007 [place] 01/29/2007 11/11/2007 FOLLICULITIS///HAIR DISEASES NEC 12/17/2006 11/11/2007 RASH///NONSPECIF SKIN ERUPT NEC 12/17/2006 11/11/2007 documented as of this encounter (statuses as of 03/28/2023) [facility] of Past illness Narrative* Problem Noted Date Diagnosed Date Resolved Date Sebaceous cyst 08/27/2007 11/11/2007 XEROSIS///SEBACEOUS GLAND DIS NEC 08/27/2007 11/11/2007 [place] 01/29/2007 11/11/2007 FOLLICULITIS///HAIR DISEASES NEC 12/17/2006 11/11/2007 RASH///NONSPECIF SKIN ERUPT NEC 12/17/2006 11/11/2007 documented as of this encounter (statuses as of 04/02/2023) [facility] of Past illness Narrative* Problem Noted Date Diagnosed Date Resolved Date Sebaceous cyst 08/27/2007 11/11/2007 XEROSIS///SEBACEOUS GLAND DIS NEC 08/27/2007 11/11/2007 [place] 01/29/2007 11/11/2007 FOLLICULITIS///HAIR DISEASES NEC 12/17/2006 11/11/2007 RASH///NONSPECIF SKIN ERUPT NEC 12/17/2006 11/11/2007 documented as of this encounter (statuses as of 04/08/2023) [facility] of Past illness Narrative* Problem Noted Date Diagnosed Date Resolved Date Sebaceous cyst 08/27/2007 11/11/2007 XEROSIS///SEBACEOUS GLAND DIS NEC 08/27/2007 11/11/2007 [place] 01/29/2007 11/11/2007 FOLLICULITIS///HAIR DISEASES NEC 12/17/2006 11/11/2007 RASH///NONSPECIF SKIN ERUPT NEC 12/17/2006 11/11/2007 documented as of this encounter (statuses as of 04/09/2023) [facility] of Past illness Narrative* Problem Noted Date Diagnosed Date Resolved Date Sebaceous cyst 08/27/2007 11/11/2007 XEROSIS///SEBACEOUS GLAND DIS NEC 08/27/2007 11/11/2007 [place] 01/29/2007 11/11/2007 FOLLICULITIS///HAIR DISEASES NEC 12/17/2006 11/11/2007 RASH///NONSPECIF SKIN ERUPT NEC 12/17/2006 11/11/2007 documented as of this encounter (statuses as of 04/10/2023) [facility] of Past illness Narrative* Problem Noted Date Diagnosed Date Resolved Date Sebaceous cyst 08/27/2007 11/11/2007 XEROSIS///SEBACEOUS GLAND DIS NEC 08/27/2007 11/11/2007 [place] 01/29/2007 11/11/2007 FOLLICULITIS///HAIR DISEASES NEC 12/17/2006 11/11/2007 RASH///NONSPECIF SKIN ERUPT NEC 12/17/2006 11/11/2007 documented as of this encounter (statuses as of 04/17/2023) [facility] Past illness Narrative* Problem Noted Date Diagnosed Date Resolved Date Sebaceous cyst 08/27/2007 11/11/2007 XEROSIS///SEBACEOUS GLAND DIS NEC 08/27/2007 11/11/2007 [place] 01/29/2007 11/11/2007 FOLLICULITIS///HAIR DISEASES NEC 12/17/2006 11/11/2007 RASH///NONSPECIF SKIN ERUPT NEC 12/17/2006 11/11/2007 documented as of this encounter (statuses as of 04/24/2023) [facility] History of Past illness Narrative* Problem Noted Date Diagnosed Date Resolved Date Sebaceous cyst 08/27/2007 11/11/2007 XEROSIS///SEBACEOUS GLAND DIS NEC 08/27/2007 11/11/2007 Sunburn 01/29/2007 11/11/2007 FOLLICULITIS///HAIR DISEASES NEC 12/17/2006 11/11/2007 RASH///NONSPECIF SKIN ERUPT NEC 12/17/2006 11/11/2007 documented as of this encounter (statuses as of 05/11/2023) [facility] History of Past illness Narrative* Problem Noted Date Diagnosed Date Resolved Date Sebaceous cyst 08/27/2007 11/11/2007 XEROSIS///SEBACEOUS GLAND DIS NEC 08/27/2007 11/11/2007 Sunburn 01/29/2007 11/11/2007 FOLLICULITIS///HAIR DISEASES NEC 12/17/2006 11/11/2007 RASH///NONSPECIF SKIN ERUPT NEC 12/17/2006 11/11/2007 documented as of this encounter (statuses as of 05/11/2023) [facility] History of Past illness Narrative* Problem Noted Date Diagnosed Date Resolved Date Sebaceous cyst 08/27/2007 11/11/2007 XEROSIS///SEBACEOUS GLAND DIS NEC 08/27/2007 11/11/2007 Sunburn 01/29/2007 11/11/2007 FOLLICULITIS///HAIR DISEASES NEC 12/17/2006 11/11/2007 RASH///NONSPECIF SKIN ERUPT NEC 12/17/2006 11/11/2007 documented as of this encounter (statuses as of 05/26/2023) [facility] History of Past illness Narrative* Problem Noted Date Diagnosed Date Resolved Date Sebaceous cyst 08/27/2007 11/11/2007 XEROSIS///SEBACEOUS GLAND DIS NEC 08/27/2007 11/11/2007 Sunburn 01/29/2007 11/11/2007 FOLLICULITIS///HAIR DISEASES NEC 12/17/2006 11/11/2007 RASH///NONSPECIF SKIN ERUPT NEC 12/17/2006 11/11/2007 documented as of this encounter (statuses as of 06/08/2023) [facility] History of Past illness Narrative* Problem Noted Date Diagnosed Date Resolved Date Sebaceous cyst 08/27/2007 11/11/2007 XEROSIS///SEBACEOUS GLAND DIS NEC 08/27/2007 11/11/2007 Sunburn 01/29/2007 11/11/2007 FOLLICULITIS///HAIR DISEASES NEC 12/17/2006 11/11/2007 RASH///NONSPECIF SKIN ERUPT NEC 12/17/2006 11/11/2007 documented as of this encounter (statuses as of 06/08/2023) [facility] History of Past illness Narrative* Problem Noted Date Diagnosed Date Resolved Date Sebaceous cyst 08/27/2007 11/11/2007 XEROSIS///SEBACEOUS GLAND DIS NEC 08/27/2007 11/11/2007 Sunburn 01/29/2007 11/11/2007 FOLLICULITIS///HAIR DISEASES NEC 12/17/2006 11/11/2007 RASH///NONSPECIF SKIN ERUPT NEC 12/17/2006 11/11/2007 documented as of this encounter (statuses as of 06/08/2023) [facility] History of Past illness Narrative* Problem Noted Date Diagnosed Date Resolved Date Sebaceous cyst 08/27/2007 11/11/2007 XEROSIS///SEBACEOUS GLAND DIS NEC 08/27/2007 11/11/2007 Sunburn 01/29/2007 11/11/2007 FOLLICULITIS///HAIR DISEASES NEC 12/17/2006 11/11/2007 RASH///NONSPECIF SKIN ERUPT NEC 12/17/2006 11/11/2007 documented as of this encounter (statuses as of 06/12/2023) [facility] History of Past illness Narrative* Problem Noted Date Diagnosed Date Resolved Date Sebaceous cyst 08/27/2007 11/11/2007 XEROSIS///SEBACEOUS GLAND DIS NEC 08/27/2007 11/11/2007 Sunburn 01/29/2007 11/11/2007 FOLLICULITIS///HAIR DISEASES NEC 12/17/2006 11/11/2007 RASH///NONSPECIF SKIN ERUPT NEC 12/17/2006 11/11/2007 documented as of this encounter (statuses as of 07/07/2023) [facility] History of Past illness Narrative* Problem Noted Date Diagnosed Date Resolved Date Sebaceous cyst 08/27/2007 11/11/2007 XEROSIS///SEBACEOUS GLAND DIS NEC 08/27/2007 11/11/2007 Sunburn 01/29/2007 11/11/2007 FOLLICULITIS///HAIR DISEASES NEC 12/17/2006 11/11/2007 RASH///NONSPECIF SKIN ERUPT NEC 12/17/2006 11/11/2007 documented as of this encounter (statuses as of 07/07/2023) [facility] of Past illness Narrative* Problem Noted Date Diagnosed Date Resolved Date Sebaceous cyst 08/27/2007 11/11/2007 XEROSIS///SEBACEOUS GLAND DIS NEC 08/27/2007 11/11/2007 Sunburn 01/29/2007 11/11/2007 FOLLICULITIS///HAIR DISEASES NEC 12/17/2006 11/11/2007 RASH///NONSPECIF SKIN ERUPT NEC 12/17/2006 11/11/2007 documented as of this encounter (statuses as of 07/08/2023) [facility] History of Past illness Narrative* Problem Noted Date Diagnosed Date Resolved Date Sebaceous cyst 08/27/2007 11/11/2007 XEROSIS///SEBACEOUS GLAND DIS NEC 08/27/2007 11/11/2007 Sunburn 01/29/2007 11/11/2007 FOLLICULITIS///HAIR DISEASES NEC 12/17/2006 11/11/2007 RASH///NONSPECIF SKIN ERUPT NEC 12/17/2006 11/11/2007 documented as of this encounter (statuses as of 07/15/2023) [facility] History of Past illness Narrative* Problem Noted Date Diagnosed Date Resolved Date Sebaceous cyst 08/27/2007 11/11/2007 XEROSIS///SEBACEOUS GLAND DIS NEC 08/27/2007 11/11/2007 Sunburn 01/29/2007 11/11/2007 FOLLICULITIS///HAIR DISEASES NEC 12/17/2006 11/11/2007 RASH///NONSPECIF SKIN ERUPT NEC 12/17/2006 11/11/2007 documented as of this encounter (statuses as of 07/18/2023) [facility] History of Past illness Narrative* Problem Noted Date Diagnosed Date Resolved Date Sebaceous cyst 08/27/2007 11/11/2007 XEROSIS///SEBACEOUS GLAND DIS NEC 08/27/2007 11/11/2007 Sunburn 01/29/2007 11/11/2007 FOLLICULITIS///HAIR DISEASES NEC 12/17/2006 11/11/2007 RASH///NONSPECIF SKIN ERUPT NEC 12/17/2006 11/11/2007 documented as of this encounter (statuses as of 09/07/2023) [facility] History of Past illness Narrative* Problem Noted Date Diagnosed Date Resolved Date Sebaceous cyst 08/27/2007 11/11/2007 XEROSIS///SEBACEOUS GLAND DIS NEC 08/27/2007 11/11/2007 Sunburn 01/29/2007 11/11/2007 FOLLICULITIS///HAIR DISEASES NEC 12/17/2006 11/11/2007 RASH///NONSPECIF SKIN ERUPT NEC 12/17/2006 11/11/2007 documented as of this encounter (statuses as of 09/14/2023) [facility] History of Past illness Narrative* Problem Noted Date Diagnosed Date Resolved Date Sebaceous cyst 08/27/2007 11/11/2007 XEROSIS///SEBACEOUS GLAND DIS NEC 08/27/2007 11/11/2007 Sunburn 01/29/2007 11/11/2007 FOLLICULITIS///HAIR DISEASES NEC 12/17/2006 11/11/2007 RASH///NONSPECIF SKIN ERUPT NEC 12/17/2006 11/11/2007 documented as of this encounter (statuses as of 09/15/2023) [facility] History of Past illness Narrative* Problem Noted Date Diagnosed Date Resolved Date Sebaceous cyst 08/27/2007 11/11/2007 XEROSIS///SEBACEOUS GLAND DIS NEC 08/27/2007 11/11/2007 Sunburn 01/29/2007 11/11/2007 FOLLICULITIS///HAIR DISEASES NEC 12/17/2006 11/11/2007 RASH///NONSPECIF SKIN ERUPT NEC 12/17/2006 11/11/2007 documented as of this encounter (statuses as of 09/16/2023) [facility] History of Past illness Narrative* Problem Noted Date Diagnosed Date Resolved Date Sebaceous cyst 08/27/2007 11/11/2007 XEROSIS///SEBACEOUS GLAND DIS NEC 08/27/2007 11/11/2007 Sunburn 01/29/2007 11/11/2007 FOLLICULITIS///HAIR DISEASES NEC 12/17/2006 11/11/2007 RASH///NONSPECIF SKIN ERUPT NEC 12/17/2006 11/11/2007 documented as of this encounter (statuses as of 09/23/2023) [facility] History of Past illness Narrative* Problem Noted Date Diagnosed Date Resolved Date Sebaceous cyst 08/27/2007 11/11/2007 XEROSIS///SEBACEOUS GLAND DIS NEC 08/27/2007 11/11/2007 Sunburn 01/29/2007 11/11/2007 FOLLICULITIS///HAIR DISEASES NEC 12/17/2006 11/11/2007 RASH///NONSPECIF SKIN ERUPT NEC 12/17/2006 11/11/2007 documented as of this encounter (statuses as of 10/08/2023) [facility] History of Past illness Narrative* Problem Noted Date Diagnosed Date Resolved Date Sebaceous cyst 08/27/2007 11/11/2007 XEROSIS///SEBACEOUS GLAND DIS NEC 08/27/2007 11/11/2007 Sunburn 01/29/2007 11/11/2007 FOLLICULITIS///HAIR DISEASES NEC 12/17/2006 11/11/2007 RASH///NONSPECIF SKIN ERUPT NEC 12/17/2006 11/11/2007 documented as of this encounter (statuses as of 10/08/2023) [facility] History of Past illness Narrative* Problem Noted Date Diagnosed Date Resolved Date Sebaceous cyst 08/27/2007 11/11/2007 XEROSIS///SEBACEOUS GLAND DIS NEC 08/27/2007 11/11/2007 Sunburn 01/29/2007 11/11/2007 FOLLICULITIS///HAIR DISEASES NEC 12/17/2006 11/11/2007 RASH///NONSPECIF SKIN ERUPT NEC 12/17/2006 11/11/2007 documented as of this encounter (statuses as of 10/12/2023) [facility] History of Past illness Narrative* Problem Noted Date Diagnosed Date Resolved Date Sebaceous cyst 08/27/2007 11/11/2007 XEROSIS///SEBACEOUS GLAND DIS NEC 08/27/2007 11/11/2007 Sunburn 01/29/2007 11/11/2007 FOLLICULITIS///HAIR DISEASES NEC 12/17/2006 11/11/2007 RASH///NONSPECIF SKIN ERUPT NEC 12/17/2006 11/11/2007 documented as of this encounter (statuses as of 10/22/2023) [facility] History of Past illness Narrative* Problem Noted Date Diagnosed Date Resolved Date Sebaceous cyst 08/27/2007 11/11/2007 XEROSIS///SEBACEOUS GLAND DIS NEC 08/27/2007 11/11/2007 Sunburn 01/29/2007 11/11/2007 FOLLICULITIS///HAIR DISEASES NEC 12/17/2006 11/11/2007 RASH///NONSPECIF SKIN ERUPT NEC 12/17/2006 11/11/2007 documented as of this encounter (statuses as of 10/22/2023) [facility] History of Past illness Narrative* Problem Noted Date Diagnosed Date Resolved Date Sebaceous cyst 08/27/2007 11/11/2007 XEROSIS///SEBACEOUS GLAND DIS NEC 08/27/2007 11/11/2007 Sunburn 01/29/2007 11/11/2007 FOLLICULITIS///HAIR DISEASES NEC 12/17/2006 11/11/2007 RASH///NONSPECIF SKIN ERUPT NEC 12/17/2006 11/11/2007 documented as of this encounter (statuses as of 10/26/2023) [facility] No data available for this section [facility] Evaluation noteThere may be information available, but it has not been provided by the sender.[facility] [employer] [facility] Work Phone: Evaluation note* Diagnosis Acute right-sided low back pain with right-sided sciatica- Primary Osteoarthritis of spine with radiculopathy, lumbar region documented in this encounter [facility] note* Diagnosis Pelvic pain in female- Primary Unspecified symptom associated with female genital organs Dyspareunia, psychogenic Cystocele with prolapse documented in this encounter [facility] note* Diagnosis Hoarseness- Primary Dysphonia Dysphagia, unspecified type [facility] Diagnosis Other specified disorders of bone, other site documented in this encounter [facility] note* Diagnosis Dysphagia, unspecified type [facility] Diagnosis Pelvic pain in female- Primary Unspecified symptom associated with female genital organs Dyspareunia, psychogenic Cystocele with prolapse [facility] Diagnosis Acute pain of both hips- Primary Tear of acetabular labrum, unspecified laterality, initial encounter [facility] Diagnosis Acute right-sided low back pain with right-sided sciatica- Primary Osteoarthritis of spine with radiculopathy, lumbar region documented in this encounter [facility] note* Diagnosis H. pylori infection- Primary Helicobacter pylori (H. pylori) [facility] Diagnosis Pelvic pain in female- Primary Unspecified symptom associated with female genital organs Dyspareunia, psychogenic Cystocele with prolapse documented in this encounter [facility] note* Diagnosis Hoarseness- Primary Dysphonia Cough Gastroesophageal reflux disease with esophagitis without hemorrhage H. pylori infection Helicobacter pylori (H. pylori) [facility] Diagnosis Acetabular labrum tear, right, initial encounter- Primary Right hip pain Pain in joint, pelvic region and thigh Sacroiliac joint dysfunction of right side Disorders of sacrum [facility]* Diagnosis Tear of right acetabular labrum, subsequent encounter- Primary Tear of right acetabular labrum, subsequent encounter [facility]* Diagnosis Pre-operative examination- Primary Preoperative examination, unspecified Tear of right acetabular labrum, subsequent encounter Carcinoma of upper-outer quadrant of right breast in female, estrogen receptor positive (HCC) H. pylori infection Helicobacter pylori (H. pylori) Gastroesophageal reflux disease with esophagitis without hemorrhage Anxiety Anxiety state, unspecified Iron deficiency anemia, unspecified iron deficiency anemia type Tear of right acetabular labrum, subsequent [facility] Pelvic pain in female- Primary Unspecified symptom associated with female genital organs Dyspareunia, psychogenic Cystocele with prolapse Tear of right acetabular labrum, subsequent encounter [facility]* Diagnosis Gastroesophageal reflux disease, unspecified whether esophagitis present- Primary Tear of right acetabular labrum, subsequent encounter [facility] Diagnosis Gastroesophageal reflux disease, unspecified whether esophagitis present Tear of right acetabular labrum, subsequent encounter [facility] Diagnosis Tear of right acetabular labrum, subsequent encounter- Primary Acute post-operative pain S/P hip arthroscopy Tear of right acetabular labrum, subsequent encounter- Primary Tear of right acetabular labrum, subsequent encounter [facility] Diagnosis Tear of right acetabular labrum, subsequent encounter- Primary [facility]* Diagnosis Tear of right acetabular labrum, subsequent encounter- Primary [facility]* Diagnosis Tear of right acetabular labrum, subsequent encounter- Primary [facility]* Diagnosis Tear of right acetabular labrum, subsequent encounter- Primary [facility]* Diagnosis Tear of right acetabular labrum, subsequent encounter- Primary [facility]* Diagnosis Tear of right acetabular labrum, subsequent encounter- Primary [facility]* Diagnosis Special screening examination for viral disease- Primary Special screening examination for unspecified viral disease Screening for HIV (human immunodeficiency virus) Special screening examination for other specified viral diseases [facility] Diagnosis Tear of right acetabular labrum, subsequent encounter- Primary [facility]* Diagnosis Tear of right acetabular labrum, subsequent encounter- Primary [facility]* Diagnosis Tear of right acetabular labrum, subsequent encounter- Primary [facility]* Diagnosis Mass of breast, unspecified laterality- Primary History of breast cancer Personal history of malignant neoplasm of breast Carcinoma of upper-outer quadrant of right breast in female, estrogen receptor positive (HCC) [facility]* Diagnosis Acetabular labrum tear, right, subsequent encounter- Primary [facility]* Diagnosis Tear of right acetabular labrum, subsequent encounter- Primary [facility]* Diagnosis Dyslipidemia- Primary Other and unspecified hyperlipidemia Iron deficiency anemia, unspecified iron deficiency anemia type Encounter for vitamin deficiency screening Screening for other and unspecified endocrine, nutritional, metabolic, and immunity disorders Encounter for breast cancer screening using non-mammogram modality [facility] Diagnosis Encounter for breast cancer screening using non-mammogram modality- Primary History of breast cancer Personal history of malignant neoplasm of breast [facility]* Diagnosis Chronic cough- Primary Cough [facility]* Diagnosis Encounter for breast cancer screening using non-mammogram modality History of breast cancer Personal history of malignant neoplasm of breast [facility] Diagnosis Osteoporosis, unspecified osteoporosis type, unspecified pathological fracture presence [facility]* Diagnosis Osteoporosis, unspecified osteoporosis type, unspecified pathological fracture presence [facility]* Diagnosis Osteoporosis, unspecified osteoporosis type, unspecified pathological fracture presence- Primary [facility]* Diagnosis History of breast cancer Personal history of malignant neoplasm of breast Carcinoma of upper-outer quadrant of right breast in female, estrogen receptor positive (HCC) Hot flashes Symptomatic menopausal or female climacteric states [facility]* Diagnosis Other osteoporosis without current pathological fracture- Primary [facility] Diagnosis Acetabular labrum tear, right, subsequent encounter- Primary [facility] Diagnosis Acetabular labrum tear, right, subsequent encounter- Primary [facility]* Diagnosis Sacroiliitis (HCC)- Primary Sacroiliitis, not elsewhere classified Piriformis syndrome of right side Lesion of sciatic nerve Trochanteric bursitis of right hip Enthesopathy of hip region [facility] Acetabular labrum tear, right, subsequent encounter- Primary [facility]* Diagnosis Other osteoporosis without current pathological fracture- Primary [facility]* Diagnosis Acetabular labrum tear, right, subsequent encounter- Primary [facility]* Diagnosis Acetabular labrum tear, right, subsequent encounter- Primary [facility] Diagnosis Acetabular labrum tear, right, subsequent encounter- Primary [facility]* Diagnosis LUQ pain- Primary Abdominal pain, left upper quadrant Bloating Flatulence, eructation, and gas pain Early satiety [facility] Diagnosis Chronic pain of left knee- Primary Pain in joint, lower leg Recurrent left knee instability Other joint derangement, not elsewhere classified, lower leg Lateral meniscus derangement, left Chronic right-sided thoracic back pain Spasm of thoracic back muscle Neck pain, chronic Cervicalgia Osteoarthritis of spine with radiculopathy, cervical region Numbness and tingling in right hand Disturbance of skin sensation Osteoarthritis of spine with radiculopathy, thoracic region DDD (degenerative disc disease), thoracic Degeneration of thoracic or thoracolumbar intervertebral disc Paresthesia of skin Disturbance of skin sensation [facility] Diagnosis Other osteoporosis without current pathological fracture- Primary [facility]* Diagnosis Trochanteric bursitis of right hip- Primary Enthesopathy of hip region Lumbar back pain Lumbago [facility] Diagnosis Acetabular labrum tear, right, subsequent encounter- Primary [facility]* Diagnosis Chronic pain of left knee- Primary Pain in joint, lower leg Recurrent left knee instability Other joint derangement, not elsewhere classified, lower leg Lateral meniscus derangement, left Chronic right-sided thoracic back pain Spasm of thoracic back muscle [facility]* Diagnosis Acetabular labrum tear, right, subsequent encounter- Primary [facility]* Diagnosis Spinal stenosis of lumbar region, unspecified whether neurogenic claudication present- Primary Chronic right-sided thoracic back pain Spasm of thoracic back muscle Neck pain, chronic Cervicalgia Osteoarthritis of spine with radiculopathy, cervical region Numbness and tingling in right hand Disturbance of skin sensation Lumbar degenerative disc disease Degeneration of lumbar or lumbosacral intervertebral disc [facility]* Diagnosis Sinobronchitis- Primary Unspecified sinusitis (chronic) [facility] Diagnosis Chronic right-sided thoracic back pain- Primary Spasm of thoracic back muscle Lumbar degenerative disc disease Degeneration of lumbar or lumbosacral intervertebral disc Muscle weakness Muscle weakness (generalized) [facility]* Diagnosis Sore throat- Primary Acute pharyngitis Congestion of upper airway Other diseases of respiratory system, not elsewhere classified Wheezing Acute ear pain, bilateral Non-recurrent acute serous otitis media of both ears [facility]* Diagnosis Acetabular labrum tear, right, subsequent encounter- Primary [facility] Diagnosis Osteoporosis, unspecified osteoporosis type, unspecified pathological fracture presence- Primary [facility] Diagnosis Chronic constipation- Primary Unspecified constipation [facility] Diagnosis Screening for colon cancer- Primary Special screening for malignant neoplasms, colon [facility]* Diagnosis Primary osteoarthritis of left knee- Primary Primary localized osteoarthrosis, lower leg [facility]* Diagnosis Other osteoporosis without current pathological fracture- Primary [facility]* Diagnosis Acetabular labrum tear, right, subsequent encounter- Primary [facility] Diagnosis Other disturbances of skin sensation [R20.8 (ICD-10-CM)]- Primary Osteoarthritis of spine with radiculopathy, lumbar region Acute right-sided low back pain with right-sided sciatica Right leg paresthesias Disturbance of skin sensation [facility]* Diagnosis Other osteoporosis without current pathological fracture- Primary [facility]* Diagnosis Wellness examination- Primary [facility] Diagnosis Other osteoporosis without current pathological fracture- Primary [facility]* Diagnosis Well adult exam- Primary Routine general medical examination at a health care facility Dyslipidemia Other and unspecified hyperlipidemia Patellofemoral arthralgia of left knee Pain in joint, lower leg Chronic right-sided thoracic back pain Osteoporosis, unspecified osteoporosis type, unspecified pathological fracture presence [facility] Diagnosis Acetabular labrum tear, right, subsequent encounter- Primary [facility] Diagnosis Carcinoma of upper-outer quadrant of right breast in female, estrogen receptor positive (HCC)- Primary History of bilateral mastectomy Acquired absence of breast and nipple History of bilateral breast implants Breast replaced by other means Use of tamoxifen (Nolvadex) Use of selective estrogen receptor modulators (SERMs) [facility] Diagnosis Chronic constipation- Primary Unspecified constipation [facility] Diagnosis Other osteoporosis without current pathological fracture- Primary [facility] Diagnosis Other osteoporosis without current pathological fracture- Primary [facility] Diagnosis Chronic constipation- Primary Unspecified constipation [facility] Diagnosis Acetabular labrum tear, right, subsequent encounter- Primary [facility] Diagnosis History of breast cancer- Primary Personal history of malignant neoplasm of breast Hemochromatosis carrier Other genetic carrier status [facility] Diagnosis Other osteoporosis without current pathological fracture- Primary [facility] Diagnosis Irritable bowel syndrome with constipation- Primary Irritable bowel syndrome Bloating Flatulence, eructation, and gas pain [facility] Diagnosis Acetabular labrum tear, right, subsequent encounter- Primary [facility] Diagnosis LUQ pain Abdominal pain, left upper quadrant Bloating Flatulence, eructation, and gas pain Early satiety [facility] Diagnosis Pain of right hip Encounter for screening for other musculoskeletal disorder Acetabular labrum tear, right, subsequent encounter Decreased range of right hip movement [facility] Diagnosis Chronic right-sided thoracic back pain Spasm of thoracic back muscle Osteoarthritis of spine with radiculopathy, thoracic region DDD (degenerative disc disease), thoracic Degeneration of thoracic or thoracolumbar intervertebral disc Paresthesia of skin Disturbance of skin sensation Spinal stenosis of lumbar region, unspecified whether neurogenic claudication present [facility] Diagnosis History of breast cancer Personal history of malignant neoplasm of breast Carcinoma of upper-outer quadrant of right breast in female, estrogen receptor positive (HCC) Hot flashes Symptomatic menopausal or female climacteric states [facility] Diagnosis Abnormal ECG- Primary Nonspecific abnormal electrocardiogram (ECG) (EKG) LAE (left atrial enlargement) Cardiomegaly [facility]* Diagnosis Hyperlipidemia, mixed- Primary Mixed hyperlipidemia [facility] Diagnosis Irritable bowel syndrome with constipation Irritable bowel syndrome documented in this encounter [facility] note* Diagnosis Other osteoporosis without current pathological fracture- Primary [facility] Diagnosis Facial twitching- Primary Other facial nerve disorders Persistent dry cough Cough documented in this encounter [facility] note* Diagnosis Chronic cough Cough Persistent dry cough Cough [facility] Diagnosis Chronic cough Cough Persistent dry cough Cough [facility]* Diagnosis Gastroesophageal reflux disease, unspecified whether esophagitis present documented in this encounter [facility] note* Diagnosis Right foot pain- Primary Pain in soft tissues of limb documented in this encounter [facility] note* Diagnosis Liver cyst- Primary Other specified disorders of liver [facility] Diagnosis Uncomplicated asthma, unspecified asthma severity, unspecified whether persistent [facility] Diagnosis Chronic cough- Primary Cough Granulomatous disease (HCC) Functional disorders of polymorphonuclear neutrophils Vocal cord strain Other diseases of vocal cords Gastroesophageal reflux disease, unspecified whether esophagitis present documented in this encounter [facility] note* Diagnosis Liver cyst Other specified disorders of liver [facility] Diagnosis Osteoarthritis of spine with radiculopathy, lumbar region- Primary Chronic right-sided thoracic back pain Acute right-sided low back pain with right-sided sciatica Right leg paresthesias Disturbance of skin sensation Other disturbances of skin sensation [R20.8 (ICD-10-CM)]- Primary Osteoarthritis of spine with radiculopathy, lumbar region Acute right-sided low back pain with right-sided sciatica Right leg paresthesias Disturbance of skin sensation [facility] Diagnosis Bilateral plantar fasciitis- Primary Left foot pain Pain in soft tissues of limb documented in this encounter [facility] note* Diagnosis Liver cyst- Primary Other specified disorders of liver [facility] Diagnosis Hemifacial spasm of left side of face- Primary [facility] Diagnosis Irritable bowel syndrome with constipation- Primary Irritable bowel syndrome Gastroesophageal reflux disease, unspecified whether esophagitis present NCGS (non-celiac gluten sensitivity) Allergy to other foods documented in this encounter [facility] note* Diagnosis Hemifacial spasm of left side of face [facility] Diagnosis Hemifacial spasm of left side of face [facility] Diagnosis Well adult exam- Primary Routine general medical examination at a health care facility [facility] Diagnosis Carcinoma of upper-outer quadrant of right breast in female, estrogen receptor positive (HCC)- Primary History of bilateral breast implants Breast replaced by other means History of bilateral mastectomy Acquired absence of breast and nipple documented in this encounter [facility] note* Diagnosis Well adult exam- Primary Routine general medical examination at a health care facility Anemia, unspecified type Fatigue, unspecified type Hyperlipidemia, mixed Mixed hyperlipidemia Persistent dry cough Cough Gastroesophageal reflux disease without esophagitis Esophageal reflux Vitamin D deficiency Unspecified vitamin D deficiency It band syndrome, left Facial twitching Other facial nerve disorders documented in this encounter [facility] note* Diagnosis Carcinoma of upper-outer quadrant of right breast in female, estrogen receptor positive (HCC)- Primary Unspecified lump in axillary tail of the right breast- Primary History of breast cancer Personal history of malignant neoplasm of breast Lump or mass in breast- Primary Carcinoma of upper-outer quadrant of right breast in female, estrogen receptor positive (HCC) Lump or mass in breast- Primary Carcinoma of upper-outer quadrant of right breast in female, estrogen receptor positive (HCC) Lump or mass in breast- Primary Carcinoma of upper-outer quadrant of right breast in female, estrogen receptor positive (HCC) Pre-operative examination- Primary Preoperative examination, unspecified Tear of right acetabular labrum, subsequent encounter Carcinoma of upper-outer quadrant of right breast in female, estrogen receptor positive (HCC) H. pylori infection Helicobacter pylori (H. pylori) Gastroesophageal reflux disease with esophagitis without hemorrhage Anxiety Anxiety state, unspecified Iron deficiency anemia, unspecified iron deficiency anemia type Mass of breast, unspecified laterality- Primary History of breast cancer Personal history of malignant neoplasm of breast Carcinoma of upper-outer quadrant of right breast in female, estrogen receptor positive (HCC) Irritable bowel syndrome with constipation Irritable bowel syndrome documented in this encounter [facility] note* Diagnosis Carcinoma of upper-outer quadrant of right breast in female, estrogen receptor positive (HCC)- Primary Unspecified lump in axillary tail of the right breast- Primary History of breast cancer Personal history of malignant neoplasm of breast Lump or mass in breast- Primary Carcinoma of upper-outer quadrant of right breast in female, estrogen receptor positive (HCC) Lump or mass in breast- Primary Carcinoma of upper-outer quadrant of right breast in female, estrogen receptor positive (HCC) Lump or mass in breast- Primary Carcinoma of upper-outer quadrant of right breast in female, estrogen receptor positive (HCC) Pre-operative examination- Primary Preoperative examination, unspecified Tear of right acetabular labrum, subsequent encounter Carcinoma of upper-outer quadrant of right breast in female, estrogen receptor positive (HCC) H. pylori infection Helicobacter pylori (H. pylori) Gastroesophageal reflux disease with esophagitis without hemorrhage Anxiety Anxiety state, unspecified Iron deficiency anemia, unspecified iron deficiency anemia type Mass of breast, unspecified laterality- Primary History of breast cancer Personal history of malignant neoplasm of breast Carcinoma of upper-outer quadrant of right breast in female, estrogen receptor positive (HCC) Encounter for follow-up surveillance of breast cancer- Primary Unspecified follow-up examination documented in this encounter [facility] note* Diagnosis Carcinoma of upper-outer quadrant of right breast in female, estrogen receptor positive (HCC)- Primary Unspecified lump in axillary tail of the right breast- Primary History of breast cancer Personal history of malignant neoplasm of breast Lump or mass in breast- Primary Carcinoma of upper-outer quadrant of right breast in female, estrogen receptor positive (HCC) Lump or mass in breast- Primary Carcinoma of upper-outer quadrant of right breast in female, estrogen receptor positive (HCC) Lump or mass in breast- Primary Carcinoma of upper-outer quadrant of right breast in female, estrogen receptor positive (HCC) Pre-operative examination- Primary Preoperative examination, unspecified Tear of right acetabular labrum, subsequent encounter Carcinoma of upper-outer quadrant of right breast in female, estrogen receptor positive (HCC) H. pylori infection Helicobacter pylori (H. pylori) Gastroesophageal reflux disease with esophagitis without hemorrhage Anxiety Anxiety state, unspecified Iron deficiency anemia, unspecified iron deficiency anemia type Mass of breast, unspecified laterality- Primary History of breast cancer Personal history of malignant neoplasm of breast Carcinoma of upper-outer quadrant of right breast in female, estrogen receptor positive (HCC) Persistent dry cough Cough documented in this encounter [facility] note* Diagnosis Carcinoma of upper-outer quadrant of right breast in female, estrogen receptor positive (HCC)- Primary Unspecified lump in axillary tail of the right breast- Primary History of breast cancer Personal history of malignant neoplasm of breast Lump or mass in breast- Primary Carcinoma of upper-outer quadrant of right breast in female, estrogen receptor positive (HCC) Lump or mass in breast- Primary Carcinoma of upper-outer quadrant of right breast in female, estrogen receptor positive (HCC) Lump or mass in breast- Primary Carcinoma of upper-outer quadrant of right breast in female, estrogen receptor positive (HCC) Pre-operative examination- Primary Preoperative examination, unspecified Tear of right acetabular labrum, subsequent encounter Carcinoma of upper-outer quadrant of right breast in female, estrogen receptor positive (HCC) H. pylori infection Helicobacter pylori (H. pylori) Gastroesophageal reflux disease with esophagitis without hemorrhage Anxiety Anxiety state, unspecified Iron deficiency anemia, unspecified iron deficiency anemia type Mass of breast, unspecified laterality- Primary History of breast cancer Personal history of malignant neoplasm of breast Carcinoma of upper-outer quadrant of right breast in female, estrogen receptor positive (HCC) Age-related osteoporosis without current pathological fracture- Primary Senile osteoporosis documented in this encounter [facility] note* Diagnosis Carcinoma of upper-outer quadrant of right breast in female, estrogen receptor positive (HCC)- Primary Unspecified lump in axillary tail of the right breast- Primary History of breast cancer Personal history of malignant neoplasm of breast Lump or mass in breast- Primary Carcinoma of upper-outer quadrant of right breast in female, estrogen receptor positive (HCC) Lump or mass in breast- Primary Carcinoma of upper-outer quadrant of right breast in female, estrogen receptor positive (HCC) Lump or mass in breast- Primary Carcinoma of upper-outer quadrant of right breast in female, estrogen receptor positive (HCC) Pre-operative examination- Primary Preoperative examination, unspecified Tear of right acetabular labrum, subsequent encounter Carcinoma of upper-outer quadrant of right breast in female, estrogen receptor positive (HCC) H. pylori infection Helicobacter pylori (H. pylori) Gastroesophageal reflux disease with esophagitis without hemorrhage Anxiety Anxiety state, unspecified Iron deficiency anemia, unspecified iron deficiency anemia type Mass of breast, unspecified laterality- Primary History of breast cancer Personal history of malignant neoplasm of breast Carcinoma of upper-outer quadrant of right breast in female, estrogen receptor positive (HCC) Screening for colon cancer Special screening for malignant neoplasms, colon documented in this encounter [facility] note* Diagnosis Carcinoma of upper-outer quadrant of right breast in female, estrogen receptor positive (HCC)- Primary Unspecified lump in axillary tail of the right breast- Primary History of breast cancer Personal history of malignant neoplasm of breast Lump or mass in breast- Primary Carcinoma of upper-outer quadrant of right breast in female, estrogen receptor positive (HCC) Lump or mass in breast- Primary Carcinoma of upper-outer quadrant of right breast in female, estrogen receptor positive (HCC) Lump or mass in breast- Primary Carcinoma of upper-outer quadrant of right breast in female, estrogen receptor positive (HCC) Pre-operative examination- Primary Preoperative examination, unspecified Tear of right acetabular labrum, subsequent encounter Carcinoma of upper-outer quadrant of right breast in female, estrogen receptor positive (HCC) H. pylori infection Helicobacter pylori (H. pylori) Gastroesophageal reflux disease with esophagitis without hemorrhage Anxiety Anxiety state, unspecified Iron deficiency anemia, unspecified iron deficiency anemia type Mass of breast, unspecified laterality- Primary History of breast cancer Personal history of malignant neoplasm of breast Carcinoma of upper-outer quadrant of right breast in female, estrogen receptor positive (HCC) Chronic constipation Unspecified constipation documented in this encounter [facility] note* Diagnosis Carcinoma of upper-outer quadrant of right breast in female, estrogen receptor positive (HCC)- Primary Unspecified lump in axillary tail of the right breast- Primary History of breast cancer Personal history of malignant neoplasm of breast Lump or mass in breast- Primary Carcinoma of upper-outer quadrant of right breast in female, estrogen receptor positive (HCC) Lump or mass in breast- Primary Carcinoma of upper-outer quadrant of right breast in female, estrogen receptor positive (HCC) Lump or mass in breast- Primary Carcinoma of upper-outer quadrant of right breast in female, estrogen receptor positive (HCC) Pre-operative examination- Primary Preoperative examination, unspecified Tear of right acetabular labrum, subsequent encounter Carcinoma of upper-outer quadrant of right breast in female, estrogen receptor positive (HCC) H. pylori infection Helicobacter pylori (H. pylori) Gastroesophageal reflux disease with esophagitis without hemorrhage Anxiety Anxiety state, unspecified Iron deficiency anemia, unspecified iron deficiency anemia type Mass of breast, unspecified laterality- Primary History of breast cancer Personal history of malignant neoplasm of breast Carcinoma of upper-outer quadrant of right breast in female, estrogen receptor positive (HCC) Sore throat Acute pharyngitis Congestion of upper airway Other diseases of respiratory system, not elsewhere classified Wheezing Acute ear pain, bilateral Non-recurrent acute serous otitis media of both ears [facility] Diagnosis Carcinoma of upper-outer quadrant of right breast in female, estrogen receptor positive (HCC)- Primary Unspecified lump in axillary tail of the right breast- Primary History of breast cancer Personal history of malignant neoplasm of breast Lump or mass in breast- Primary Carcinoma of upper-outer quadrant of right breast in female, estrogen receptor positive (HCC) Lump or mass in breast- Primary Carcinoma of upper-outer quadrant of right breast in female, estrogen receptor positive (HCC) Lump or mass in breast- Primary Carcinoma of upper-outer quadrant of right breast in female, estrogen receptor positive (HCC) Pre-operative examination- Primary Preoperative examination, unspecified Tear of right acetabular labrum, subsequent encounter Carcinoma of upper-outer quadrant of right breast in female, estrogen receptor positive (HCC) H. pylori infection Helicobacter pylori (H. pylori) Gastroesophageal reflux disease with esophagitis without hemorrhage Anxiety Anxiety state, unspecified Iron deficiency anemia, unspecified iron deficiency anemia type Mass of breast, unspecified laterality- Primary History of breast cancer Personal history of malignant neoplasm of breast Carcinoma of upper-outer quadrant of right breast in female, estrogen receptor positive (HCC) Chronic pain of left knee Pain in joint, lower leg Recurrent left knee instability Other joint derangement, not elsewhere classified, lower leg Lateral meniscus derangement, left Neck pain, chronic Cervicalgia Osteoarthritis of spine with radiculopathy, cervical region Numbness and tingling in right hand Disturbance of skin sensation documented in this encounter [facility] note* Diagnosis Carcinoma of upper-outer quadrant of right breast in female, estrogen receptor positive (HCC)- Primary Unspecified lump in axillary tail of the right breast- Primary History of breast cancer Personal history of malignant neoplasm of breast Lump or mass in breast- Primary Carcinoma of upper-outer quadrant of right breast in female, estrogen receptor positive (HCC) Lump or mass in breast- Primary Carcinoma of upper-outer quadrant of right breast in female, estrogen receptor positive (HCC) Lump or mass in breast- Primary Carcinoma of upper-outer quadrant of right breast in female, estrogen receptor positive (HCC) Pre-operative examination- Primary Preoperative examination, unspecified Tear of right acetabular labrum, subsequent encounter Carcinoma of upper-outer quadrant of right breast in female, estrogen receptor positive (HCC) H. pylori infection Helicobacter pylori (H. pylori) Gastroesophageal reflux disease with esophagitis without hemorrhage Anxiety Anxiety state, unspecified Iron deficiency anemia, unspecified iron deficiency anemia type Mass of breast, unspecified laterality- Primary History of breast cancer Personal history of malignant neoplasm of breast Carcinoma of upper-outer quadrant of right breast in female, estrogen receptor positive (HCC) Trochanteric bursitis of right hip Enthesopathy of hip region documented in this encounter [facility] note* Diagnosis Carcinoma of upper-outer quadrant of right breast in female, estrogen receptor positive (HCC)- Primary Unspecified lump in axillary tail of the right breast- Primary History of breast cancer Personal history of malignant neoplasm of breast Lump or mass in breast- Primary Carcinoma of upper-outer quadrant of right breast in female, estrogen receptor positive (HCC) Lump or mass in breast- Primary Carcinoma of upper-outer quadrant of right breast in female, estrogen receptor positive (HCC) Lump or mass in breast- Primary Carcinoma of upper-outer quadrant of right breast in female, estrogen receptor positive (HCC) Pre-operative examination- Primary Preoperative examination, unspecified Tear of right acetabular labrum, subsequent encounter Carcinoma of upper-outer quadrant of right breast in female, estrogen receptor positive (HCC) H. pylori infection Helicobacter pylori (H. pylori) Gastroesophageal reflux disease with esophagitis without hemorrhage Anxiety Anxiety state, unspecified Iron deficiency anemia, unspecified iron deficiency anemia type Mass of breast, unspecified laterality- Primary History of breast cancer Personal history of malignant neoplasm of breast Carcinoma of upper-outer quadrant of right breast in female, estrogen receptor positive (HCC) Sacroiliitis (HCC) Sacroiliitis, not elsewhere classified documented in this encounter [facility] note* Diagnosis Carcinoma of upper-outer quadrant of right breast in female, estrogen receptor positive (HCC)- Primary Unspecified lump in axillary tail of the right breast- Primary History of breast cancer Personal history of malignant neoplasm of breast Lump or mass in breast- Primary Carcinoma of upper-outer quadrant of right breast in female, estrogen receptor positive (HCC) Lump or mass in breast- Primary Carcinoma of upper-outer quadrant of right breast in female, estrogen receptor positive (HCC) Lump or mass in breast- Primary Carcinoma of upper-outer quadrant of right breast in female, estrogen receptor positive (HCC) Pre-operative examination- Primary Preoperative examination, unspecified Tear of right acetabular labrum, subsequent encounter Carcinoma of upper-outer quadrant of right breast in female, estrogen receptor positive (HCC) H. pylori infection Helicobacter pylori (H. pylori) Gastroesophageal reflux disease with esophagitis without hemorrhage Anxiety Anxiety state, unspecified Iron deficiency anemia, unspecified iron deficiency anemia type Mass of breast, unspecified laterality- Primary History of breast cancer Personal history of malignant neoplasm of breast Carcinoma of upper-outer quadrant of right breast in female, estrogen receptor positive (HCC) Osteoporosis, unspecified osteoporosis type, unspecified pathological fracture presence documented in this encounter [facility] note* Diagnosis Carcinoma of upper-outer quadrant of right breast in female, estrogen receptor positive (HCC)- Primary Unspecified lump in axillary tail of the right breast- Primary History of breast cancer Personal history of malignant neoplasm of breast Lump or mass in breast- Primary Carcinoma of upper-outer quadrant of right breast in female, estrogen receptor positive (HCC) Lump or mass in breast- Primary Carcinoma of upper-outer quadrant of right breast in female, estrogen receptor positive (HCC) Lump or mass in breast- Primary Carcinoma of upper-outer quadrant of right breast in female, estrogen receptor positive (HCC) Pre-operative examination- Primary Preoperative examination, unspecified Tear of right acetabular labrum, subsequent encounter Carcinoma of upper-outer quadrant of right breast in female, estrogen receptor positive (HCC) H. pylori infection Helicobacter pylori (H. pylori) Gastroesophageal reflux disease with esophagitis without hemorrhage Anxiety Anxiety state, unspecified Iron deficiency anemia, unspecified iron deficiency anemia type Mass of breast, unspecified laterality- Primary History of breast cancer Personal history of malignant neoplasm of breast Carcinoma of upper-outer quadrant of right breast in female, estrogen receptor positive (HCC) Other osteoporosis without current pathological fracture- Primary documented in this encounter [facility] note* Diagnosis Carcinoma of upper-outer quadrant of right breast in female, estrogen receptor positive (HCC)- Primary Unspecified lump in axillary tail of the right breast- Primary History of breast cancer Personal history of malignant neoplasm of breast Lump or mass in breast- Primary Carcinoma of upper-outer quadrant of right breast in female, estrogen receptor positive (HCC) Lump or mass in breast- Primary Carcinoma of upper-outer quadrant of right breast in female, estrogen receptor positive (HCC) Lump or mass in breast- Primary Carcinoma of upper-outer quadrant of right breast in female, estrogen receptor positive (HCC) Pre-operative examination- Primary Preoperative examination, unspecified Tear of right acetabular labrum, subsequent encounter Carcinoma of upper-outer quadrant of right breast in female, estrogen receptor positive (HCC) H. pylori infection Helicobacter pylori (H. pylori) Gastroesophageal reflux disease with esophagitis without hemorrhage Anxiety Anxiety state, unspecified Iron deficiency anemia, unspecified iron deficiency anemia type Mass of breast, unspecified laterality- Primary History of breast cancer Personal history of malignant neoplasm of breast Carcinoma of upper-outer quadrant of right breast in female, estrogen receptor positive (HCC) Gastroesophageal reflux disease, unspecified whether esophagitis present NCGS (non-celiac gluten sensitivity) Allergy to other foods documented in this encounter [facility] note* Diagnosis Carcinoma of upper-outer quadrant of right breast in female, estrogen receptor positive (HCC)- Primary Unspecified lump in axillary tail of the right breast- Primary History of breast cancer Personal history of malignant neoplasm of breast Lump or mass in breast- Primary Carcinoma of upper-outer quadrant of right breast in female, estrogen receptor positive (HCC) Lump or mass in breast- Primary Carcinoma of upper-outer quadrant of right breast in female, estrogen receptor positive (HCC) Lump or mass in breast- Primary Carcinoma of upper-outer quadrant of right breast in female, estrogen receptor positive (HCC) Pre-operative examination- Primary Preoperative examination, unspecified Tear of right acetabular labrum, subsequent encounter Carcinoma of upper-outer quadrant of right breast in female, estrogen receptor positive (HCC) H. pylori infection Helicobacter pylori (H. pylori) Gastroesophageal reflux disease with esophagitis without hemorrhage Anxiety Anxiety state, unspecified Iron deficiency anemia, unspecified iron deficiency anemia type Tear of right acetabular labrum, subsequent encounter Mass of breast, unspecified laterality- Primary History of breast cancer Personal history of malignant neoplasm of breast Carcinoma of upper-outer quadrant of right breast in female, estrogen receptor positive (HCC) documented in this encounter [facility] note* Diagnosis Carcinoma of upper-outer quadrant of right breast in female, estrogen receptor positive (HCC)- Primary Unspecified lump in axillary tail of the right breast- Primary History of breast cancer Personal history of malignant neoplasm of breast Lump or mass in breast- Primary Carcinoma of upper-outer quadrant of right breast in female, estrogen receptor positive (HCC) Lump or mass in breast- Primary Carcinoma of upper-outer quadrant of right breast in female, estrogen receptor positive (HCC) Lump or mass in breast- Primary Carcinoma of upper-outer quadrant of right breast in female, estrogen receptor positive (HCC) Right hip pain Pain in joint, pelvic region and thigh Sacroiliac joint dysfunction of right side Disorders of sacrum Pre-operative examination- Primary Preoperative examination, unspecified Tear of right acetabular labrum, subsequent encounter Carcinoma of upper-outer quadrant of right breast in female, estrogen receptor positive (HCC) H. pylori infection Helicobacter pylori (H. pylori) Gastroesophageal reflux disease with esophagitis without hemorrhage Anxiety Anxiety state, unspecified Iron deficiency anemia, unspecified iron deficiency anemia type Mass of breast, unspecified laterality- Primary History of breast cancer Personal history of malignant neoplasm of breast Carcinoma of upper-outer quadrant of right breast in female, estrogen receptor positive (HCC) documented in this encounter [facility] note* Diagnosis Carcinoma of upper-outer quadrant of right breast in female, estrogen receptor positive (HCC)- Primary Unspecified lump in axillary tail of the right breast- Primary History of breast cancer Personal history of malignant neoplasm of breast Lump or mass in breast- Primary Carcinoma of upper-outer quadrant of right breast in female, estrogen receptor positive (HCC) Lump or mass in breast- Primary Carcinoma of upper-outer quadrant of right breast in female, estrogen receptor positive (HCC) Lump or mass in breast- Primary Carcinoma of upper-outer quadrant of right breast in female, estrogen receptor positive (HCC) Pre-operative examination- Primary Preoperative examination, unspecified Tear of right acetabular labrum, subsequent encounter Carcinoma of upper-outer quadrant of right breast in female, estrogen receptor positive (HCC) H. pylori infection Helicobacter pylori (H. pylori) Gastroesophageal reflux disease with esophagitis without hemorrhage Anxiety Anxiety state, unspecified Iron deficiency anemia, unspecified iron deficiency anemia type Mass of breast, unspecified laterality- Primary History of breast cancer Personal history of malignant neoplasm of breast Carcinoma of upper-outer quadrant of right breast in female, estrogen receptor positive (HCC) Gastroesophageal reflux disease, unspecified whether esophagitis present- Primary documented in this encounter [facility] note* Diagnosis Carcinoma of upper-outer quadrant of right breast in female, estrogen receptor positive (HCC)- Primary Unspecified lump in axillary tail of the right breast- Primary History of breast cancer Personal history of malignant neoplasm of breast Lump or mass in breast- Primary Carcinoma of upper-outer quadrant of right breast in female, estrogen receptor positive (HCC) Lump or mass in breast- Primary Carcinoma of upper-outer quadrant of right breast in female, estrogen receptor positive (HCC) Lump or mass in breast- Primary Carcinoma of upper-outer quadrant of right breast in female, estrogen receptor positive (HCC) Pre-operative examination- Primary Preoperative examination, unspecified Tear of right acetabular labrum, subsequent encounter Carcinoma of upper-outer quadrant of right breast in female, estrogen receptor positive (HCC) H. pylori infection Helicobacter pylori (H. pylori) Gastroesophageal reflux disease with esophagitis without hemorrhage Anxiety Anxiety state, unspecified Iron deficiency anemia, unspecified iron deficiency anemia type Mass of breast, unspecified laterality- Primary History of breast cancer Personal history of malignant neoplasm of breast Carcinoma of upper-outer quadrant of right breast in female, estrogen receptor positive (HCC) Age-related osteoporosis without current pathological fracture Senile osteoporosis documented in this encounter [facility] note* Diagnosis Carcinoma of upper-outer quadrant of right breast in female, estrogen receptor positive (HCC)- Primary Unspecified lump in axillary tail of the right breast- Primary History of breast cancer Personal history of malignant neoplasm of breast Lump or mass in breast- Primary Carcinoma of upper-outer quadrant of right breast in female, estrogen receptor positive (HCC) Lump or mass in breast- Primary Carcinoma of upper-outer quadrant of right breast in female, estrogen receptor positive (HCC) Lump or mass in breast- Primary Carcinoma of upper-outer quadrant of right breast in female, estrogen receptor positive (HCC) Pre-operative examination- Primary Preoperative examination, unspecified Tear of right acetabular labrum, subsequent encounter Carcinoma of upper-outer quadrant of right breast in female, estrogen receptor positive (HCC) H. pylori infection Helicobacter pylori (H. pylori) Gastroesophageal reflux disease with esophagitis without hemorrhage Anxiety Anxiety state, unspecified Iron deficiency anemia, unspecified iron deficiency anemia type Mass of breast, unspecified laterality- Primary History of breast cancer Personal history of malignant neoplasm of breast Carcinoma of upper-outer quadrant of right breast in female, estrogen receptor positive (HCC) Facial twitching- Primary Other facial nerve disorders Bradykinesia Abnormal involuntary movements Hyposmia Disturbances of sensation of smell and taste documented in this encounter [facility] note* Diagnosis Carcinoma of upper-outer quadrant of right breast in female, estrogen receptor positive (HCC)- Primary Unspecified lump in axillary tail of the right breast- Primary History of breast cancer Personal history of malignant neoplasm of breast Lump or mass in breast- Primary Carcinoma of upper-outer quadrant of right breast in female, estrogen receptor positive (HCC) Lump or mass in breast- Primary Carcinoma of upper-outer quadrant of right breast in female, estrogen receptor positive (HCC) Lump or mass in breast- Primary Carcinoma of upper-outer quadrant of right breast in female, estrogen receptor positive (HCC) Pre-operative examination- Primary Preoperative examination, unspecified Tear of right acetabular labrum, subsequent encounter Carcinoma of upper-outer quadrant of right breast in female, estrogen receptor positive (HCC) H. pylori infection Helicobacter pylori (H. pylori) Gastroesophageal reflux disease with esophagitis without hemorrhage Anxiety Anxiety state, unspecified Iron deficiency anemia, unspecified iron deficiency anemia type Mass of breast, unspecified laterality- Primary History of breast cancer Personal history of malignant neoplasm of breast Carcinoma of upper-outer quadrant of right breast in female, estrogen receptor positive (HCC) Gastroesophageal reflux disease, unspecified whether esophagitis present- Primary Irritable bowel syndrome with constipation Irritable bowel syndrome NCGS (non-celiac gluten sensitivity) Allergy to other foods Bloating Flatulence, eructation, and gas pain documented in this encounter [facility] note* Diagnosis Carcinoma of upper-outer quadrant of right breast in female, estrogen receptor positive (HCC)- Primary Unspecified lump in axillary tail of the right breast- Primary History of breast cancer Personal history of malignant neoplasm of breast Lump or mass in breast- Primary Carcinoma of upper-outer quadrant of right breast in female, estrogen receptor positive (HCC) Lump or mass in breast- Primary Carcinoma of upper-outer quadrant of right breast in female, estrogen receptor positive (HCC) Lump or mass in breast- Primary Carcinoma of upper-outer quadrant of right breast in female, estrogen receptor positive (HCC) Pre-operative examination- Primary Preoperative examination, unspecified Tear of right acetabular labrum, subsequent encounter Carcinoma of upper-outer quadrant of right breast in female, estrogen receptor positive (HCC) H. pylori infection Helicobacter pylori (H. pylori) Gastroesophageal reflux disease with esophagitis without hemorrhage Anxiety Anxiety state, unspecified Iron deficiency anemia, unspecified iron deficiency anemia type Mass of breast, unspecified laterality- Primary History of breast cancer Personal history of malignant neoplasm of breast Carcinoma of upper-outer quadrant of right breast in female, estrogen receptor positive (HCC) Irritable bowel syndrome with constipation Irritable bowel syndrome documented in this encounter [facility] note* Diagnosis Carcinoma of upper-outer quadrant of right breast in female, estrogen receptor positive (HCC)- Primary Unspecified lump in axillary tail of the right breast- Primary History of breast cancer Personal history of malignant neoplasm of breast Lump or mass in breast- Primary Carcinoma of upper-outer quadrant of right breast in female, estrogen receptor positive (HCC) Lump or mass in breast- Primary Carcinoma of upper-outer quadrant of right breast in female, estrogen receptor positive (HCC) Lump or mass in breast- Primary Carcinoma of upper-outer quadrant of right breast in female, estrogen receptor positive (HCC) Pre-operative examination- Primary Preoperative examination, unspecified Tear of right acetabular labrum, subsequent encounter Carcinoma of upper-outer quadrant of right breast in female, estrogen receptor positive (HCC) H. pylori infection Helicobacter pylori (H. pylori) Gastroesophageal reflux disease with esophagitis without hemorrhage Anxiety Anxiety state, unspecified Iron deficiency anemia, unspecified iron deficiency anemia type Mass of breast, unspecified laterality- Primary History of breast cancer Personal history of malignant neoplasm of breast Carcinoma of upper-outer quadrant of right breast in female, estrogen receptor positive (HCC) Irritable bowel syndrome with constipation Irritable bowel syndrome NCGS (non-celiac gluten sensitivity) Allergy to other foods Bloating Flatulence, eructation, and gas pain documented in this encounter [facility] note* Diagnosis Carcinoma of upper-outer quadrant of right breast in female, estrogen receptor positive (HCC)- Primary Unspecified lump in axillary tail of the right breast- Primary History of breast cancer Personal history of malignant neoplasm of breast Lump or mass in breast- Primary Carcinoma of upper-outer quadrant of right breast in female, estrogen receptor positive (HCC) Lump or mass in breast- Primary Carcinoma of upper-outer quadrant of right breast in female, estrogen receptor positive (HCC) Lump or mass in breast- Primary Carcinoma of upper-outer quadrant of right breast in female, estrogen receptor positive (HCC) Pre-operative examination- Primary Preoperative examination, unspecified Tear of right acetabular labrum, subsequent encounter Carcinoma of upper-outer quadrant of right breast in female, estrogen receptor positive (HCC) H. pylori infection Helicobacter pylori (H. pylori) Gastroesophageal reflux disease with esophagitis without hemorrhage Anxiety Anxiety state, unspecified Iron deficiency anemia, unspecified iron deficiency anemia type Mass of breast, unspecified laterality- Primary History of breast cancer Personal history of malignant neoplasm of breast Carcinoma of upper-outer quadrant of right breast in female, estrogen receptor positive (HCC) Bloating- Primary Flatulence, eructation, and gas pain documented in this encounter [facility] note* Diagnosis Carcinoma of upper-outer quadrant of right breast in female, estrogen receptor positive (HCC)- Primary Unspecified lump in axillary tail of the right breast- Primary History of breast cancer Personal history of malignant neoplasm of breast Lump or mass in breast- Primary Carcinoma of upper-outer quadrant of right breast in female, estrogen receptor positive (HCC) Lump or mass in breast- Primary Carcinoma of upper-outer quadrant of right breast in female, estrogen receptor positive (HCC) Lump or mass in breast- Primary Carcinoma of upper-outer quadrant of right breast in female, estrogen receptor positive (HCC) Pre-operative examination- Primary Preoperative examination, unspecified Tear of right acetabular labrum, subsequent encounter Carcinoma of upper-outer quadrant of right breast in female, estrogen receptor positive (HCC) H. pylori infection Helicobacter pylori (H. pylori) Gastroesophageal reflux disease with esophagitis without hemorrhage Anxiety Anxiety state, unspecified Iron deficiency anemia, unspecified iron deficiency anemia type Mass of breast, unspecified laterality- Primary History of breast cancer Personal history of malignant neoplasm of breast Carcinoma of upper-outer quadrant of right breast in female, estrogen receptor positive (HCC) Flu-like symptoms- Primary Other general symptoms documented in this encounter [facility] note* Diagnosis Carcinoma of upper-outer quadrant of right breast in female, estrogen receptor positive (HCC)- Primary Unspecified lump in axillary tail of the right breast- Primary History of breast cancer Personal history of malignant neoplasm of breast Lump or mass in breast- Primary Carcinoma of upper-outer quadrant of right breast in female, estrogen receptor positive (HCC) Lump or mass in breast- Primary Carcinoma of upper-outer quadrant of right breast in female, estrogen receptor positive (HCC) Lump or mass in breast- Primary Carcinoma of upper-outer quadrant of right breast in female, estrogen receptor positive (HCC) Pre-operative examination- Primary Preoperative examination, unspecified Tear of right acetabular labrum, subsequent encounter Carcinoma of upper-outer quadrant of right breast in female, estrogen receptor positive (HCC) H. pylori infection Helicobacter pylori (H. pylori) Gastroesophageal reflux disease with esophagitis without hemorrhage Anxiety Anxiety state, unspecified Iron deficiency anemia, unspecified iron deficiency anemia type Mass of breast, unspecified laterality- Primary History of breast cancer Personal history of malignant neoplasm of breast Carcinoma of upper-outer quadrant of right breast in female, estrogen receptor positive (HCC) History of breast cancer Personal history of malignant neoplasm of breast Carcinoma of upper-outer quadrant of right breast in female, estrogen receptor positive (HCC) Hot flashes Symptomatic menopausal or female climacteric states [facility] Diagnosis Carcinoma of upper-outer quadrant of right breast in female, estrogen receptor positive (HCC)- Primary Unspecified lump in axillary tail of the right breast- Primary History of breast cancer Personal history of malignant neoplasm of breast Lump or mass in breast- Primary Carcinoma of upper-outer quadrant of right breast in female, estrogen receptor positive (HCC) Lump or mass in breast- Primary Carcinoma of upper-outer quadrant of right breast in female, estrogen receptor positive (HCC) Lump or mass in breast- Primary Carcinoma of upper-outer quadrant of right breast in female, estrogen receptor positive (HCC) Pre-operative examination- Primary Preoperative examination, unspecified Tear of right acetabular labrum, subsequent encounter Carcinoma of upper-outer quadrant of right breast in female, estrogen receptor positive (HCC) H. pylori infection Helicobacter pylori (H. pylori) Gastroesophageal reflux disease with esophagitis without hemorrhage Anxiety Anxiety state, unspecified Iron deficiency anemia, unspecified iron deficiency anemia type Mass of breast, unspecified laterality- Primary History of breast cancer Personal history of malignant neoplasm of breast Carcinoma of upper-outer quadrant of right breast in female, estrogen receptor positive (HCC) Gastroesophageal reflux disease, unspecified whether esophagitis present [facility] Diagnosis Carcinoma of upper-outer quadrant of right breast in female, estrogen receptor positive (HCC)- Primary Unspecified lump in axillary tail of the right breast- Primary History of breast cancer Personal history of malignant neoplasm of breast Lump or mass in breast- Primary Carcinoma of upper-outer quadrant of right breast in female, estrogen receptor positive (HCC) Lump or mass in breast- Primary Carcinoma of upper-outer quadrant of right breast in female, estrogen receptor positive (HCC) Lump or mass in breast- Primary Carcinoma of upper-outer quadrant of right breast in female, estrogen receptor positive (HCC) Pre-operative examination- Primary Preoperative examination, unspecified Tear of right acetabular labrum, subsequent encounter Carcinoma of upper-outer quadrant of right breast in female, estrogen receptor positive (HCC) H. pylori infection Helicobacter pylori (H. pylori) Gastroesophageal reflux disease with esophagitis without hemorrhage Anxiety Anxiety state, unspecified Iron deficiency anemia, unspecified iron deficiency anemia type Mass of breast, unspecified laterality- Primary History of breast cancer Personal history of malignant neoplasm of breast Carcinoma of upper-outer quadrant of right breast in female, estrogen receptor positive (HCC) Irritable bowel syndrome with constipation Irritable bowel syndrome documented in this encounter [facility] note* Diagnosis Carcinoma of upper-outer quadrant of right breast in female, estrogen receptor positive (HCC)- Primary Unspecified lump in axillary tail of the right breast- Primary History of breast cancer Personal history of malignant neoplasm of breast Lump or mass in breast- Primary Carcinoma of upper-outer quadrant of right breast in female, estrogen receptor positive (HCC) Lump or mass in breast- Primary Carcinoma of upper-outer quadrant of right breast in female, estrogen receptor positive (HCC) Lump or mass in breast- Primary Carcinoma of upper-outer quadrant of right breast in female, estrogen receptor positive (HCC) Pre-operative examination- Primary Preoperative examination, unspecified Tear of right acetabular labrum, subsequent encounter Carcinoma of upper-outer quadrant of right breast in female, estrogen receptor positive (HCC) H. pylori infection Helicobacter pylori (H. pylori) Gastroesophageal reflux disease with esophagitis without hemorrhage Anxiety Anxiety state, unspecified Iron deficiency anemia, unspecified iron deficiency anemia type Mass of breast, unspecified laterality- Primary History of breast cancer Personal history of malignant neoplasm of breast Carcinoma of upper-outer quadrant of right breast in female, estrogen receptor positive (HCC) Age-related osteoporosis with current pathological fracture with routine healing, subsequent encounter- Primary documented in this encounter [facility] note* Diagnosis Carcinoma of upper-outer quadrant of right breast in female, estrogen receptor positive (HCC)- Primary Unspecified lump in axillary tail of the right breast- Primary History of breast cancer Personal history of malignant neoplasm of breast Lump or mass in breast- Primary Carcinoma of upper-outer quadrant of right breast in female, estrogen receptor positive (HCC) Lump or mass in breast- Primary Carcinoma of upper-outer quadrant of right breast in female, estrogen receptor positive (HCC) Lump or mass in breast- Primary Carcinoma of upper-outer quadrant of right breast in female, estrogen receptor positive (HCC) Pre-operative examination- Primary Preoperative examination, unspecified Tear of right acetabular labrum, subsequent encounter Carcinoma of upper-outer quadrant of right breast in female, estrogen receptor positive (HCC) H. pylori infection Helicobacter pylori (H. pylori) Gastroesophageal reflux disease with esophagitis without hemorrhage Anxiety Anxiety state, unspecified Iron deficiency anemia, unspecified iron deficiency anemia type Mass of breast, unspecified laterality- Primary History of breast cancer Personal history of malignant neoplasm of breast Carcinoma of upper-outer quadrant of right breast in female, estrogen receptor positive (HCC) Other osteoporosis without current pathological fracture- Primary documented in this encounter [facility] note* Diagnosis Carcinoma of upper-outer quadrant of right breast in female, estrogen receptor positive (HCC)- Primary Unspecified lump in axillary tail of the right breast- Primary History of breast cancer Personal history of malignant neoplasm of breast Lump or mass in breast- Primary Carcinoma of upper-outer quadrant of right breast in female, estrogen receptor positive (HCC) Lump or mass in breast- Primary Carcinoma of upper-outer quadrant of right breast in female, estrogen receptor positive (HCC) Lump or mass in breast- Primary Carcinoma of upper-outer quadrant of right breast in female, estrogen receptor positive (HCC) Pre-operative examination- Primary Preoperative examination, unspecified Tear of right acetabular labrum, subsequent encounter Carcinoma of upper-outer quadrant of right breast in female, estrogen receptor positive (HCC) H. pylori infection Helicobacter pylori (H. pylori) Gastroesophageal reflux disease with esophagitis without hemorrhage Anxiety Anxiety state, unspecified Iron deficiency anemia, unspecified iron deficiency anemia type Mass of breast, unspecified laterality- Primary History of breast cancer Personal history of malignant neoplasm of breast Carcinoma of upper-outer quadrant of right breast in female, estrogen receptor positive (HCC) Bradykinesia- Primary Abnormal involuntary movements documented in this encounter [facility] note* Diagnosis Carcinoma of upper-outer quadrant of right breast in female, estrogen receptor positive (HCC)- Primary Unspecified lump in axillary tail of the right breast- Primary History of breast cancer Personal history of malignant neoplasm of breast Lump or mass in breast- Primary Carcinoma of upper-outer quadrant of right breast in female, estrogen receptor positive (HCC) Lump or mass in breast- Primary Carcinoma of upper-outer quadrant of right breast in female, estrogen receptor positive (HCC) Lump or mass in breast- Primary Carcinoma of upper-outer quadrant of right breast in female, estrogen receptor positive (HCC) Pre-operative examination- Primary Preoperative examination, unspecified Tear of right acetabular labrum, subsequent encounter Carcinoma of upper-outer quadrant of right breast in female, estrogen receptor positive (HCC) H. pylori infection Helicobacter pylori (H. pylori) Gastroesophageal reflux disease with esophagitis without hemorrhage Anxiety Anxiety state, unspecified Iron deficiency anemia, unspecified iron deficiency anemia type Mass of breast, unspecified laterality- Primary History of breast cancer Personal history of malignant neoplasm of breast Carcinoma of upper-outer quadrant of right breast in female, estrogen receptor positive (HCC) Gastroesophageal reflux disease, unspecified whether esophagitis present documented in this encounter [facility] note* Diagnosis Carcinoma of upper-outer quadrant of right breast in female, estrogen receptor positive (HCC)- Primary Unspecified lump in axillary tail of the right breast- Primary History of breast cancer Personal history of malignant neoplasm of breast Lump or mass in breast- Primary Carcinoma of upper-outer quadrant of right breast in female, estrogen receptor positive (HCC) Lump or mass in breast- Primary Carcinoma of upper-outer quadrant of right breast in female, estrogen receptor positive (HCC) Lump or mass in breast- Primary Carcinoma of upper-outer quadrant of right breast in female, estrogen receptor positive (HCC) Pre-operative examination- Primary Preoperative examination, unspecified Tear of right acetabular labrum, subsequent encounter Carcinoma of upper-outer quadrant of right breast in female, estrogen receptor positive (HCC) H. pylori infection Helicobacter pylori (H. pylori) Gastroesophageal reflux disease with esophagitis without hemorrhage Anxiety Anxiety state, unspecified Iron deficiency anemia, unspecified iron deficiency anemia type Mass of breast, unspecified laterality- Primary History of breast cancer Personal history of malignant neoplasm of breast Carcinoma of upper-outer quadrant of right breast in female, estrogen receptor positive (HCC) Irritable bowel syndrome with constipation- Primary Irritable bowel syndrome [facility] Diagnosis Carcinoma of upper-outer quadrant of right breast in female, estrogen receptor positive (HCC)- Primary Unspecified lump in axillary tail of the right breast- Primary History of breast cancer Personal history of malignant neoplasm of breast Lump or mass in breast- Primary Carcinoma of upper-outer quadrant of right breast in female, estrogen receptor positive (HCC) Lump or mass in breast- Primary Carcinoma of upper-outer quadrant of right breast in female, estrogen receptor positive (HCC) Lump or mass in breast- Primary Carcinoma of upper-outer quadrant of right breast in female, estrogen receptor positive (HCC) Pre-operative examination- Primary Preoperative examination, unspecified Tear of right acetabular labrum, subsequent encounter Carcinoma of upper-outer quadrant of right breast in female, estrogen receptor positive (HCC) H. pylori infection Helicobacter pylori (H. pylori) Gastroesophageal reflux disease with esophagitis without hemorrhage Anxiety Anxiety state, unspecified Iron deficiency anemia, unspecified iron deficiency anemia type Mass of breast, unspecified laterality- Primary History of breast cancer Personal history of malignant neoplasm of breast Carcinoma of upper-outer quadrant of right breast in female, estrogen receptor positive (HCC) Irritable bowel syndrome with constipation- Primary Irritable bowel syndrome [facility] Diagnosis Carcinoma of upper-outer quadrant of right breast in female, estrogen receptor positive (HCC)- Primary Unspecified lump in axillary tail of the right breast- Primary History of breast cancer Personal history of malignant neoplasm of breast Lump or mass in breast- Primary Carcinoma of upper-outer quadrant of right breast in female, estrogen receptor positive (HCC) Lump or mass in breast- Primary Carcinoma of upper-outer quadrant of right breast in female, estrogen receptor positive (HCC) Lump or mass in breast- Primary Carcinoma of upper-outer quadrant of right breast in female, estrogen receptor positive (HCC) Pre-operative examination- Primary Preoperative examination, unspecified Tear of right acetabular labrum, subsequent encounter Carcinoma of upper-outer quadrant of right breast in female, estrogen receptor positive (HCC) H. pylori infection Helicobacter pylori (H. pylori) Gastroesophageal reflux disease with esophagitis without hemorrhage Anxiety Anxiety state, unspecified Iron deficiency anemia, unspecified iron deficiency anemia type Mass of breast, unspecified laterality- Primary History of breast cancer Personal history of malignant neoplasm of breast Carcinoma of upper-outer quadrant of right breast in female, estrogen receptor positive (HCC) Well adult exam- Primary Routine general medical examination at a health care facility Hyperlipidemia, mixed Mixed hyperlipidemia Fatigue, unspecified type Anemia, unspecified type Vitamin D deficiency Unspecified vitamin D deficiency documented in this encounter [facility] note* Diagnosis Carcinoma of upper-outer quadrant of right breast in female, estrogen receptor positive (HCC)- Primary Unspecified lump in axillary tail of the right breast- Primary History of breast cancer Personal history of malignant neoplasm of breast Lump or mass in breast- Primary Carcinoma of upper-outer quadrant of right breast in female, estrogen receptor positive (HCC) Lump or mass in breast- Primary Carcinoma of upper-outer quadrant of right breast in female, estrogen receptor positive (HCC) Lump or mass in breast- Primary Carcinoma of upper-outer quadrant of right breast in female, estrogen receptor positive (HCC) Pre-operative examination- Primary Preoperative examination, unspecified Tear of right acetabular labrum, subsequent encounter Carcinoma of upper-outer quadrant of right breast in female, estrogen receptor positive (HCC) H. pylori infection Helicobacter pylori (H. pylori) Gastroesophageal reflux disease with esophagitis without hemorrhage Anxiety Anxiety state, unspecified Iron deficiency anemia, unspecified iron deficiency anemia type Mass of breast, unspecified laterality- Primary History of breast cancer Personal history of malignant neoplasm of breast Carcinoma of upper-outer quadrant of right breast in female, estrogen receptor positive (HCC) Well adult exam- Primary Routine general medical examination at a health care facility Encounter for screening for cardiovascular disorders Screening for other and unspecified cardiovascular conditions Family history of early CAD Family history of ischemic heart disease Hyperlipidemia, mixed Mixed hyperlipidemia Fatigue, unspecified type Gastroesophageal reflux disease without esophagitis Esophageal reflux Vitamin D deficiency Unspecified vitamin D deficiency Left knee pain, unspecified chronicity documented in this encounter [facility] note* Diagnosis Carcinoma of upper-outer quadrant of right breast in female, estrogen receptor positive (HCC)- Primary Unspecified lump in axillary tail of the right breast- Primary History of breast cancer Personal history of malignant neoplasm of breast Lump or mass in breast- Primary Carcinoma of upper-outer quadrant of right breast in female, estrogen receptor positive (HCC) Lump or mass in breast- Primary Carcinoma of upper-outer quadrant of right breast in female, estrogen receptor positive (HCC) Lump or mass in breast- Primary Carcinoma of upper-outer quadrant of right breast in female, estrogen receptor positive (HCC) Pre-operative examination- Primary Preoperative examination, unspecified Tear of right acetabular labrum, subsequent encounter Carcinoma of upper-outer quadrant of right breast in female, estrogen receptor positive (HCC) H. pylori infection Helicobacter pylori (H. pylori) Gastroesophageal reflux disease with esophagitis without hemorrhage Anxiety Anxiety state, unspecified Iron deficiency anemia, unspecified iron deficiency anemia type Mass of breast, unspecified laterality- Primary History of breast cancer Personal history of malignant neoplasm of breast Carcinoma of upper-outer quadrant of right breast in female, estrogen receptor positive (HCC) Irritable bowel syndrome with constipation- Primary Irritable bowel syndrome documented in this encounter [facility] Discharge instructions No data available for this section [facility] Instructions* Instruction Description Start Date Completed [facility] Work Phone: Progress note No data available for this section [facility] Reason for referral (narrative)* Outpatient Procedure (Routine) - Authorized Specialty Diagnoses / Procedures Referred By Vega nash Referred To Contact [facility] Diagnoses Hoarseness Dysphagia, unspecified type Procedures EGD DIAGNOSTIC ESOPHAGOGASTRODUODENOSC OPY TRANSORAL DIAGNOSTIC Paige Sylvester APRN.CNP [address] [place] [address] [facility] [place] [address] [place] [address] Referral ID Status Reason Start Date Expiration Date Visits Requested Visits Authorized [id number] Authorized Auto-Generat ed Referral 11/01/2021 11/01/2022 1 1 [facility] for referral (narrative)* Diagnostic Procedure Only (Routine) - Pending Review Specialty Diagnoses / Procedures Referred By Contac t Referred To Contact XR IMAGING Diagnoses Tear of right acetabular labrum, subsequent encounter Procedures XR HIP GENERAL 3V PELV/AP/LAT RIGHT RADEX HIP UNILATERAL WITH PELVIS 2-3 VIEWS Aida Madden, [address] [place] [address] X[facility] Imaging Referral ID Status Reason Start Date Expiration Date Visits Requested Visits Authorized [id number] Pending Review Auto-Generat ed Referral 12/09/2021 01/08/2023 1 1 * Physical Therapy (Routine) - Pending Review Specialty Diagnoses / Procedures Referred By Contact Referred To Contact [facility] Diagnoses Tear of right acetabular labrum, subsequent encounter Procedures CONSULT TO PHYSICAL THERAPY PHYSICAL THERAPY EVALUATION HIGH COMPLEX 45 MINS Aida Madden PA-C [address] [place] [address] [facility] [place] [address] [place] [address] Referral ID Status Reason Start Date Expiration Date Visits Requested Visits Authorized [id number] Pending Review Auto-Generat ed Referral 12/09/2021 12/09/2022 1 1 [facility] for referral (narrative)* Diagnostic Procedure Only (Routine) - Closed Specialty Diagnoses / Procedures Referred By Contac t Referred To Contact XR IMAGING Diagnoses Osteoporosis, unspecified osteoporosis type, unspecified pathological fracture presence Procedures XR LUMBAR GENERAL 3V AP/LAT/L5-S1 RADEX SPINE LUMBOSACRAL 2/3 VIEWS Esme Wisdom MD [address] [place] [address] X[facility] Imaging Referral ID Status Reason Start Date Expiration Date V isits Requested Visits Authorized [id number] Closed Auto-Generate d Referral 05/27/2022 06/26/2023 1 1 * Diagnostic Procedure Only (Routine) - Closed Specialty Diagnoses / Procedures Referred By Contac t Referred To Contact XR IMAGING Diagnoses Osteoporosis, unspecified osteoporosis type, unspecified pathological fracture presence Procedures XR THORACIC LIMITED 2V AP/LAT RADEX SPINE THORACIC 2 VIEWS Esme Wisdom MD [address] [place] [address] X[facility] Imaging Referral ID Status Reason Start Date Expiration Date V isits Requested Visits Authorized [id number] Closed Auto-Generate d Referral 05/27/2022 06/26/2023 1 1 [facility] for referral (narrative)* Diagnostic Procedure Only (Routine) - Pending Review Specialty Diagnoses / Procedures Referred By Contac t Referred To Contact XR IMAGING Diagnoses Osteoporosis, unspecified osteoporosis type, unspecified pathological fracture presence Procedures XR LUMBAR GENERAL 3V AP/LAT/L5-S1 RADEX SPINE LUMBOSACRAL 2/3 VIEWS Esme Wisdom MD [address] [place] [address] X[facility] Imaging Referral ID Status Reason Start Date Expiration Date Visits Requested Visits Authorized [id number] Pending Review Auto-Generat ed Referral 2 07/02/2023 1 1 * Diagnostic Procedure Only (Routine) - Pending Review Specialty Diagnoses / Procedures Referred By Contac t Referred To Contact XR IMAGING Diagnoses Osteoporosis, unspecified osteoporosis type, unspecified pathological fracture presence Procedures XR THORACIC LIMITED 2V AP/LAT RADEX SPINE THORACIC 2 VIEWS Esme Wisdom MD [address] [place] [address] Xr Imaging Referral ID Status Reason Start Date Expiration Date Visits Requested Visits Authorized [id number] Pending Review Auto-Generat ed Referral 2 07/02/2023 1 1 [facility] for referral (narrative)* Diagnostic Procedure Only (Routine) - Authorized Specialty Diagnoses / Procedures Referred By Contac t Referred To Contact [facility] Diagnoses LUQ pain Bloating Early satiety Procedures NM GASTRIC EMPTYING SOLID GASTRIC EMPTYING STUDY Ceci Nava PA-C [address] [place] [address] [facility] [address] [place] [address] Referral ID Status Reason Start Date Expiration Date Visits Requested Visits Authorized [id number] Authorized Auto-Generat ed Referral 10/29/2022 11/28/2023 1 1 [facility] for referral (narrative)* Outpatient Procedure (Routine) - Pending Review Specialty Diagnoses / Procedures Referred By Contac t Referred To Contact [facility] Diagnoses Chronic constipation Procedures [facility] ANORECTAL MANOMETRY ANORECTAL MANOMETRY Ceci Nava PA-C [address] [place] [address] [facility] [address] [address] Referral ID Status Reason Start Date Expiration Date Visits Requested Visits Authorized [id number] Pending Review Auto-Generat ed Referral 12/10/2022 12/11/2023 1 1 [facility] for referral (narrative)* Outpatient Procedure (Routine) - Pending Review Specialty Diagnoses / Procedures Referred By Contac t Referred To Contact [facility] Diagnoses Screening for colon cancer Procedures COLONOSCOPY SCREENING COLONOSCOPY FLX DX W/COLLJ SPEC WHEN PFRMD Ceci Nava PA-C [address] [place] [address] [facility] [address] [address] Referral ID Status Reason Start Date Expiration Date Visits Requested Visits Authorized [id number] Pending Review Auto-Generat ed Referral 12/30/2022 12/31/2023 1 1 T [facility] for referral (narrative)* Diagnostic Procedure Only (Routine) - Pending Review Specialty Diagnoses / Procedures Referred By Contac t Referred To Contact XR IMAGING Diagnoses Chronic constipation Procedures XR ABDOMEN 1V SUPINE RADIOLOGIC EXAM ABDOMEN 1 VIEW Ceci Nava PA-C [address] [place] [address] [place] [address] Referral ID Status Reason Start Date Expiration Date Visits Requested Visits Authorized [id number] Pending Review Auto-Generat ed Referral 04/01/2023 04/30/2024 1 1 [facility] for referral (narrative)* Diagnostic Procedure Only (Routine) - Closed Specialty Diagnoses / Procedures Referred By Contac t Referred To Contact [facility] Diagnoses LUQ pain Bloating Early satiety Procedures NM GASTRIC EMPTYING SOLID GASTRIC EMPTYING STUDY Ceci Luna PA-C [address] [place] [address] [facility] [address] [place] [address] Referral ID Status Reason Start Date Expiration Date V isits Requested Visits Authorized [id number] Closed Auto-Generate d Referral 10/29/2022 11/28/2023 1 1 [facility] for referral (narrative)* Outpatient Procedure (Routine) - Authorized Specialty Diagnoses / Procedures Referred By Contac t Referred To Contact [facility] Diagnoses Abnormal ECG LAE (left atrial enlargement) Procedures ECHO ECHO TTHRC R-T 2D W/WOM-MODE COMPL SPEC&COLR D Gallo Sanches DO [address] [place] [address] [facility] [place] [address] [place] [address] Referral ID Status Reason Start Date Expiration Date Visits Requested Visits Authorized [id number] Authorized Auto-Generat ed Referral 07/07/2023 07/06/2024 1 1 [facility] for referral (narrative)* Diagnostic Procedure Only (Routine) - Pending Review Specialty Diagnoses / Procedures Referred By Contac t Referred To Contact US IMAGING Diagnoses Liver cyst Procedures US ABD RIGHT UPPER QUADRANT US ABDOMINAL REAL TIME W/IMAGE LIMITED Rossi Martinez APRN.C[employer]ER SALES [employer]IST [address] [place] [address] Us Imaging [id number] Referral ID Status Reason Start Date Expiration Date Visits Requested Visits Authorized [id number] Pending Review Auto-Generat ed Referral 01/07/2024 02/05/2025 1 1 [facility] for referral (narrative)* Outpatient Procedure (Routine) - Closed Specialty Diagnoses / Procedures Referred By Contac t Referred To Contact [facility] Diagnoses Osteoarthritis of spine with radiculopathy, lumbar region Acute right-sided low back pain with right-sided sciatica Right leg paresthesias Procedures EMG(NEURO/NI) NERVE CONDUCTION STUDIES 9-10 STUDIES Gallo Sanches DO [address] [place] [address] [facility] [place] [address] [place] [address] Referral ID Status Reason Start Date Expiration Date V isits Requested Visits Authorized [id number] Closed Auto-Generate d Referral 01/22/2023 01/22/2024 1 1 T [facility] for referral (narrative)* Diagnostic Procedure Only (Routine) - Pending Review Specialty Diagnoses / Procedures [facility] Referred To Contact US IMAG[facility] Diagnoses Liver cyst Procedures US ABD RIGHT UPPER QUADRANT US ABDOMINAL REAL TIME W/IMAGE LIMITED Rossi Martinez APRN.CNP [address] [place] [address] Us Imaging [id number] Referral ID Status Reason Start Date Expiration Date Visits Requested Visits Authorized [id number] Pending Review Auto-Generat ed Referral 01/25/2025 02/24/2025 1 1 [facility] for referral (narrative)* Outpatient Procedure (Routine) - Pending Review Specialty Diagnoses / Procedures Referred By Contac t Referred To Contact [facility] Diagnoses Gastroesophageal reflux disease, unspecified whether esophagitis present NCGS (non-celiac gluten sensitivity) Procedures EGD DIAGNOSTIC ESOPHAGOGASTRODUODENOSC OPY TRANSORAL DIAGNOSTIC Ceci Luna PA-C [address] [place] [address] [facility] [place] [address] [place] [address] Referral ID Status Reason Start Date Expiration Date Visits Requested Visits Authorized [id number] Pending Review Auto-Generat ed Referral 02/01/2024 01/31/2025 1 1 T [facility] for referral (narrative)* Diagnostic Procedure Only (Routine) - New Request Specialty Diagnoses / Procedures Referred By Vega nash Referred To Contact XR IMAGING Diagnoses Age-related osteoporosis without current pathological fracture Procedures DXA-AXIAL SKELETON DXA BONE DENSITY STUDY / SITES AXIAL Esme Pittman MD [address] [place] [address] Xr Imaging [id number] Referral ID Status Reason Start Date Expiration Date Visits Requested Visits Authorized [id number] New Request Auto-Generat ed Referral 04/19/2024 05/19/2025 1 1 [facility] for referral (narrative)* Outpatient Procedure (Routine) - Closed Specialty Diagnoses / Procedures Referred By Vega nash Referred To Contact [facility] Diagnoses Screening for colon cancer Procedures COLONOSCOPY SCREENING COLONOSCOPY FLX DX W/COLLJ SPEC WHEN PFRMD Ceci Luna PA-C [address] [place] [address] [facility] [place] [address] [place] [address] Referral ID Status Reason Start Date Expiration Date V isits Requested Visits Authorized [id number] Closed Auto-Generate d Referral 12/30/2022 12/31/2023 1 1 [facility] for referral (narrative)* Diagnostic Procedure Only (Routine) - Closed Specialty Diagnoses / Procedures Referred By Contac t Referred To Contact XR IMAGING Diagnoses Chronic constipation Procedures XR ABDOMEN 1V SUPINE RADIOLOGIC EXAM ABDOMEN 1 VIEW Ceci Luna PA-C [address] [place] [address] [place] [address] Referral ID Status Reason Start Date Expiration Date V isits Requested Visits Authorized [id number] Closed Auto-Generate d Referral 04/01/2023 04/30/2024 1 1 [facility] for referral (narrative)* Diagnostic Procedure Only (Routine) - Closed Specialty Diagnoses / Procedures Referred By Contac t Referred To Contact XR IMAGING Diagnoses Neck pain, chronic Osteoarthritis of spine with radiculopathy, cervical region Numbness and tingling in right hand Procedures XR CERV OTHER 4V AP/LAT/OBL RADEX SPINE CERVICAL 4 OR 5 VIEWS Gallo Sanches, DO [address] [place] [address] [place] [address] Referral ID Status Reason Start Date Expiration Date V isits Requested Visits Authorized [id number] Closed Auto-Generate d Referral 10/31/2022 11/30/2023 1 1 * Diagnostic Procedure Only (Routine) - Closed Specialty Diagnoses / Procedures Referred By Contac t Referred To Contact XR IMAGING Diagnoses Chronic pain of left knee Recurrent left knee instability Lateral meniscus derangement, left Procedures XR KNEE GENERAL 4V AP BOTH/PA BOTH/LAT/MERC LEFT RADIOLOGIC EXAM KNEE COMPLETE 4/MORE VIEWS Gallo Sanches, DO [address] [place] [address] [place] [address] Referral ID Status Reason Start Date Expiration Date V isits Requested Visits Authorized [id number] Closed Auto-Generate d Referral 10/31/2022 11/30/2023 1 1 [facility] for referral (narrative)* Diagnostic Procedure Only (Routine) - Closed Specialty Diagnoses / Procedures Referred By Contac t Referred To Contact US IMAGING Diagnoses Trochanteric bursitis of right hip Procedures US HIP RIGHT US COMPL JOINT R-T W/IMAGE DOCUMENTATION Renan Paige MD [address] [id number] [place] [address] Referral ID Status Reason Start Date Expiration Date V isits Requested Visits Authorized [id number] Closed Auto-Generate d Referral 11/07/2022 12/07/2023 1 1 [facility] for referral (narrative)* Diagnostic Procedure Only (Routine) - Closed Specialty Diagnoses / Procedures Referred By Contac t Referred To Contact XR IMAGING Diagnoses Osteoporosis, unspecified osteoporosis type, unspecified pathological fracture presence Procedures XR LUMBAR GENERAL 3V AP/LAT/L5-S1 RADEX SPINE LUMBOSACRAL 2/3 VIEWS Esme Wisdom MD [address] [place] [address] [place] [address] Referral ID Status Reason Start Date Expiration Date V isits Requested Visits Authorized [id number] Closed Auto-Generate d Referral 06/02/2022 07/02/2023 1 1 * Diagnostic Procedure Only (Routine) - Closed Specialty Diagnoses / Procedures Referred By Contac t Referred To Contact XR IMAGING Diagnoses Osteoporosis, unspecified osteoporosis type, unspecified pathological fracture presence Procedures XR THORACIC LIMITED 2V AP/LAT RADEX SPINE THORACIC 2 VIEWS Esme Wisdom MD [address] [place] [address] [place] [address] Referral ID Status Reason Start Date Expiration Date V isits Requested Visits Authorized [id number] Closed Auto-Generate d Referral 06/02/2022 07/02/2023 1 1 [facility] for referral (narrative)* Outpatient Procedure (Routine) - Closed Specialty Diagnoses / Procedures Referred By Contac t Referred To Contact [facility] Diagnoses Gastroesophageal reflux disease, unspecified whether esophagitis present NCGS (non-celiac gluten sensitivity) Procedures EGD DIAGNOSTIC ESOPHAGOGASTRODUODENOSC OPY TRANSORAL DIAGNOSTIC Ceci Luna PA-C [address] [place] [address] [facility] [address] [place] [address] Referral ID Status Reason Start Date Expiration Date V isits Requested Visits Authorized [id number] Closed Auto-Generate d Referral 02/01/2024 01/31/2025 1 1 [facility] for referral (narrative)* Diagnostic Procedure Only (Routine) - Closed Specialty Diagnoses / Procedures Referred By Contac t Referred To Contact XR IMAGING Diagnoses Tear of right acetabular labrum, subsequent encounter Procedures XR HIP GENERAL 3V PELV/AP/LAT RIGHT RADEX HIP UNILATERAL WITH PELVIS 2-3 VIEWS Aida Madden PA-C [address] [place] [address] [place] [address] Referral ID Status Reason Start Date Expiration Date V isits Requested Visits Authorized [id number] Closed Auto-Generate d Referral 12/09/2021 01/08/2023 1 1 [facility] for referral (narrative)* Diagnostic Procedure Only (Routine) - Closed Specialty Diagnoses / Procedures Referred By Contac t Referred To Contact XR IMAGING Diagnoses Right hip pain Sacroiliac joint dysfunction of right side Procedures XR HIP GENERAL 3V PELV/AP/LAT RT RADEX HIP UNILATERAL WITH PELVIS 2-3 VIEWS Gallo Sanches, [address] [place] [address] [place] [address] Referral ID Status Reason Start Date Expiration Date V isits Requested Visits Authorized [id number] Closed Auto-Generate d Referral 05/27/2021 06/26/2022 1 1 * Diagnostic Procedure Only (Routine) - Closed Specialty Diagnoses / Procedures Referred By Contac t Referred To Contact XR IMAGING Diagnoses Right hip pain Sacroiliac joint dysfunction of right side Procedures XR SACROILIAC JOINTS 2V AP PELVIS/FERGUESON X-RAY SACRO-ILIAC JOINTS MIN 3 VIEW Gallo Sanches, DO [address] [place] [address] [place] [address] Referral ID Status Reason Start Date Expiration Date V isits Requested Visits Authorized [id number] Closed Auto-Generate d Referral 05/27/2021 06/26/2022 1 1 * Diagnostic Procedure Only (Routine) - Closed Specialty Diagnoses / Procedures Referred By Contac t Referred To Contact XR IMAGING Diagnoses Right hip pain Sacroiliac joint dysfunction of right side Procedures XR LUMBAR GENERAL 3V AP/LAT/L5-S1 X-RAY L-S SPINE AP/LATERAL Gallo Sanches, DO [address] [place] [address] [place] [address] Referral ID Status Reason Start Date Expiration Date V isits Requested Visits Authorized [id number] Closed Auto-Generate d Referral 05/27/2021 06/26/2022 1 1 [facility] for referral (narrative)* Diagnostic Procedure Only (Routine) - New Request Specialty Diagnoses / Procedures Referred By Contac t Referred To Contact XR IMAGING Diagnoses Irritable bowel syndrome with constipation Procedures XR ABDOMEN 2V ROUTINE SUPINE W UPRIGHT/DECUB/CTL RADIOLOGIC EXAM ABDOMEN 2 VIEWS Ceci Luna PA-C [address] [place] [address] [place] [address] Referral ID Status Reason Start Date Expiration Date Visits Requested Visits Authorized [id number] New Request Auto-Generat ed Referral 08/31/2025 1 1 [facility] for visit Narrative* Outpatient Procedure (Routine) - Closed Specialty Diagnoses / Procedures Referred By Contac t Referred To Contact [facility] Diagnoses Hoarseness Dysphagia, unspecified type Procedures EGD DIAGNOSTIC ESOPHAGOGASTRODUODENOSC OPY TRANSORAL DIAGNOSTIC Paige Sylvester, COMPLIANCE ADVISOR.CUSTOMER SALES SPECIALIST [address] [place] [address] [facility] [address] [place] [address] Referral ID Status Reason Start Date Expiration Date V isits Requested Visits Authorized [id number] Closed Auto-Generate d Referral 11/01/2021 11/01/2022 1 1 [facility] for visit Narrative* Diagnostic Procedure Only (Routine) - Closed Specialty Diagnoses / Procedures Referred By Contac t Referred To Contact XR IMAGING Diagnoses Osteoporosis, unspecified osteoporosis type, unspecified pathological fracture presence Procedures XR LUMBAR GENERAL 3V AP/LAT/L5-S1 RADEX SPINE LUMBOSACRAL 2/3 VIEWS Esme Wisdom MD [address] [place] [address] X[facility] Imaging Referral ID Status Reason Start Date Expiration Date V isits Requested Visits Authorized [id number] Closed Auto-Generate d Referral 05/27/2022 06/26/2023 1 1 [facility] for visit Narrative* Outpatient Procedure (Routine) - Closed Specialty Diagnoses / Procedures Referred By Contac t Referred To [facility] Diagnoses Osteoarthritis of spine with radiculopathy, lumbar region Acute right-sided low back pain with right-sided sciatica Right leg paresthesias Procedures EMG(NEURO/NI) NERVE CONDUCTION STUDIES 9-10 STUDIES Gallo Sanches L, [address] [place] [address] [facility] [address] [place] [address] Referral ID Status Reason Start Date Expiration Date V isits Requested Visits Authorized [id number] Closed Auto-Generate d Referral 01/22/2023 01/22/2024 1 1 [facility] for visit Narrative* Outpatient Procedure (Routine) - Closed Specialty Diagnoses / Procedures Referred By Contac t Referred To Contact [facility] Diagnoses Screening for colon cancer Procedures COLONOSCOPY SCREENING COLONOSCOPY FLX DX W/COLLJ SPEC WHEN PFRMD Ceci Luna PA-C [address] [place] [address] [facility] [address] [place] [address] Referral ID Status Reason Start Date Expiration Date V isits Requested Visits Authorized [id number] Closed Auto-Generate d Referral 12/30/2022 12/31/2023 1 1 [facility] for visit Narrative* Diagnostic Procedure Only (Routine) - Closed Specialty Diagnoses / Procedures Referred By Contac t Referred To Contact XR IMAGING Diagnoses Chronic constipation Procedures XR ABDOMEN 1V SUPINE RADIOLOGIC EXAM ABDOMEN 1 VIEW Ceci Luna PA-C [address] [place] [address] [place] [address] Referral ID Status Reason Start Date Expiration Date V isits Requested Visits Authorized [id number] Closed Auto-Generate d Referral 04/01/2023 04/30/2024 1 1 [facility] for visit Narrative* Diagnostic Procedure Only (Routine) - Closed Specialty Diagnoses / Procedures Referred By Contac t Referred To Contact XR IMAGING Diagnoses Neck pain, chronic Osteoarthritis of spine with radiculopathy, cervical region Numbness and tingling in right hand Procedures XR CERV OTHER 4V AP/LAT/OBL RADEX SPINE CERVICAL 4 OR 5 VIEWS Gallo Sanches L, DO [address] [place] [address] [place] [address] Referral ID Status Reason Start Date Expiration Date V isits Requested Visits Authorized [id number] Closed Auto-Generate d Referral 10/31/2022 11/30/2023 1 1 [facility] for visit Narrative* Diagnostic Procedure Only (Routine) - Closed Specialty Diagnoses / Procedures Referred By Contac t Referred To Contact [facility] Diagnoses Trochanteric bursitis of right hip Procedures US HIP RIGHT US COMPL JOINT R-T W/IMAGE DOCUMENTATION Renan Paige MD [address] [place] [address] [place] [address] Referral ID Status Reason Start Date Expiration Date V isits Requested Visits Authorized [id number] Closed Auto-Generate d Referral 11/07/2022 12/07/2023 1 1 [facility] for visit Narrative* Diagnostic Procedure Only (Routine) - Closed Specialty Diagnoses / Procedures Referred By Contac t Referred To Contact XR IMAGING Diagnoses Osteoporosis, unspecified osteoporosis type, unspecified pathological fracture presence Procedures XR LUMBAR GENERAL 3V AP/LAT/L5-S1 RADEX SPINE LUMBOSACRAL 2/3 VIEWS Esme Wisdom MD [address] [place] [address] [place] [address] Referral ID Status Reason Start Date Expiration Date V isits Requested Visits Authorized [id number] Closed Auto-Generate d Referral 06/02/2022 07/02/2023 1 1 [facility] for visit Narrative* Outpatient Procedure (Routine) - Closed Specialty Diagnoses / Procedures Referred By Contac t Referred To Contact [facility] Diagnoses Gastroesophageal reflux disease, unspecified whether esophagitis present NCGS (non-celiac gluten sensitivity) Procedures EGD DIAGNOSTIC ESOPHAGOGASTRODUODENOSC OPY TRANSORAL DIAGNOSTIC Ceci Luna PA-C [address] [place] [address] [facility] [address] [place] [address] Referral ID Status Reason Start Date Expiration Date V isits Requested Visits Authorized [id number] Closed Auto-Generate d Referral 02/01/2024 01/31/2025 1 1 [facility] for visit Narrative* Diagnostic Procedure Only (Routine) - Closed Specialty Diagnoses / Procedures Referred By Contac t Referred To Contact XR IMAGING Diagnoses Right hip pain Sacroiliac joint dysfunction of right side Procedures XR HIP GENERAL 3V PELV/AP/LAT RT RADEX HIP UNILATERAL WITH PELVIS 2-3 VIEWS Gallo Sanches, DO [address] [place] [address] [place] [address] Referral ID Status Reason Start Date Expiration Date V isits Requested Visits Authorized [id number] Closed Auto-Generate d Referral 05/27/2021 06/26/2022 1 1 [facility] for visit Narrative* Diagnostic Procedure Only (Routine) - Closed Specialty Diagnoses / Procedures Referred By Contac t Referred To Contact XR IMAGING Diagnoses Age-related osteoporosis without current pathological fracture Procedures DXA-AXIAL SKELETON DXA BONE DENSITY STUDY 1/ SITES AXIAL Esme Pittman MD [address] [place] [address] [place] [address] Referral ID Status Reason Start Date Expiration Date V isits Requested Visits Authorized [id number] Closed Auto-Generate d Referral 04/19/2024 05/19/2025 1 1 [facility] for visit Narrative* Diagnostic Procedure Only (Routine) - Closed Specialty Diagnoses / Procedures Referred By Contac t Referred To Contact XR IMAGING Diagnoses Irritable bowel syndrome with constipation Procedures XR ABDOMEN 2V ROUTINE SUPINE W UPRIGHT/DECUB/CTL RADIOLOGIC EXAM ABDOMEN 2 VIEWS Ceci Luna PA-C [address] [place] [address] [place] [address] Referral ID Status Reason Start Date Expiration Date V isits Requested Visits Authorized [id number] Closed Auto-Generate d Referral 08/01/2024 08/31/2025 1 1 [facility] Summary Purpose Family History No Family History Records FoundNo Family History Records FoundNo Family History Records FoundThere may be information available, but it has not been provided by the sender.No Family History Records FoundNo Family History Records Found No data available for this section No Family History Records FoundNo Family History Records FoundNo Family History Records FoundNo Family History Records Found No data available for this section No Family History Records FoundNo Family History Records Found Advance Directives No Advanced Directives Records FoundDocuments on File Type Date Recorded Patient Shipper Expl anation ACP-Advance Directive ACP-Power of Director Food Safety Documents on File Type Date Recorded Patient Shipper Expl anation Advance Directives and Living Will Power of Director Food Safety Documents on File Type Date Recorded Patient Shipper Expl anation Advance Directive(s) 03/01/2018 12:09 PM Advance Directive(s) 02/22/2018 8:37 AM Advance Directive(s) 08/18/2017 9:25 AM Documents on File Type Date Recorded Patient Shipper Expl anation Advance Directive(s) 03/01/2018 12:09 PM Advance Directive(s) 02/22/2018 8:37 AM Advance Directive(s) 08/18/2017 9:25 AM Documents on File Type Date Recorded Patient Shipper Expl anation Advance Directive(s) 11/05/2021 12:11 PM Advance Directive(s) 03/01/2018 12:09 PM Advance Directive(s) 02/22/2018 8:37 AM Advance Directive(s) 08/18/2017 9:25 AM Documents on File Type Date Recorded Patient Shipper Expl anation Advance Directive(s) 11/05/2021 12:11 PM Advance Directive(s) 03/01/2018 12:09 PM Advance Directive(s) 02/22/2018 8:37 AM Advance Directive(s) 08/18/2017 9:25 AM Documents on File Type Date Recorded Patient Shipper Expl anation Advance Directive(s) 01/02/2022 9:11 AM Advance Directive(s) 11/05/2021 12:11 PM Advance Directive(s) 03/01/2018 12:09 PM Advance Directive(s) 02/22/2018 8:37 AM Advance Directive(s) 08/18/2017 9:25 AM Assessments Diagnosis Delayed union of fracture of foot, right Chief Complaint Chief Complaint Description Start Date v post Remove bilateral tiss ue expanders; insert bilateral breast implants and revision bilateral breast reconstruction with fat grafting on 11/30/2017 Preliminary chief co mplaint data, not yet signed by the author as of Reason for Referral Specialty Diagnoses / Procedures Referred By Vega t Referred To Contact [facility] IM[facility] Diagnoses Other specified disorders of bone, other site Procedures MRI HIP WO/W IVCON RT MRI ANY JT LOWER EXTREM W/O & W/CONTRAST MATRL Minnie Lyons, COMPLIANCE ADVISOR.CUSTOMER SALES SPECIALIST [address] [place] [address] [facility] Referral ID Status Reason Start Date Expiration Date V isits Requested Visits Authorized [id number] Closed Auto-Generate d Referral 10/09/2021 11/28/2021 1 1 Specialty Diagnoses / Procedures Referred By Contazalea t Referred To Contact MR IMAGING Diagnoses Other specified disorders of bone, other site Procedures MRI HIP WO/W IVCON LT MRI ANY JT LOWER EXTREM W/O & W/CONTRAST MATRL MRI HIP WO/W IVCON LT Minnie Lyons, COMPLIANCE ADVISOR.CUSTOMER SALES SPECIALIST [address] [place] [address] [facility] Imaging Referral ID Status Reason Start Date Expiration Date V isits Requested Visits Authorized [id number] Closed Auto-Generat ed Referral Patient Cleared - Admin/Chairm an/Director advise to proceed 10/18/2021 12/02/2021 1 1 Specialty Diagnoses / Procedures Referred By Vega t Referred To Contact Orthopedics Diagnoses Acute pain of both hips Tear of acetabular labrum, unspecified laterality, initial encounter Procedures CONSULT TO ORTHOPAEDIC SURGERY OFFICE/OUTPATIENT [facility] 60-74 MINUTES Minnie Lyons, COMPLIANCE ADVISOR.CUSTOMER SALES SPECIALIST [address] [place] [address] Renan Paige MD [address] [place] [address] Referral ID Status Reason Start Date Expiration Date Visits Requested Visits Authorized [id number] Authorized PCP Requested Referral 11/08/2021 11/08/2022 1 1 Specialty Diagnoses / Procedures Referred By Marcusac t Referred To Contact [facility] Diagnoses Encounter for breast cancer screening using non-mammogram modality Procedures MRI BREAST WO IVCON BILAT MRI BREAST WITHOUT CONTRAST MATERIAL BILATERAL Izabella Sanchez, COMPLIANCE ADVISOR.CUSTOMER SALES SPECIALIST [address] [place] [address] [facility] Referral ID Status Reason Start Date Expiration Date Visits Requested Visits Authorized [id number] Pending Review Auto-Generat ed Referral 04/25/2022 05/25/2023 1 1 Specialty Diagnoses / Procedures Referred By Marcusac t Referred To Contact MR IM[facility] Diagnoses Encounter for breast cancer screening using non-mammogram modality History of breast cancer Procedures MRI BREAST WO/W IVCON BILAT MRI BREAST WITHOUT&WITH CONTRAST W/CAD BILATERAL Gallo Sanches DO [address] [place] [address] Mr Imaging Referral ID Status Reason Start Date Expiration Date Visits Requested Visits Authorized [id number] Pending Review Auto-Generat ed Referral 05/05/2022 06/04/2023 1 1 Referral ID Status Reason Start Date Expiration Date V isits Requested Visits Authorized [id number] Closed Auto-Generate d Referral 05/05/2022 06/20/2022 1 1 Specialty Diagnoses / Procedures Referred By Contact Referred To Contact [facility] Diagnoses Acetabular labrum tear, right, subsequent encounter Procedures CONSULT TO PHYSICAL THERAPY PHYSICAL THERAPY EVALUATION HIGH COMPLEX 45 MINS Aida Madden, GIBSON [address] [place] [address] [facility] [address] [address] Referral ID Status Reason Start Date Expiration Date Visits Requested Visits Authorized [id number] Pending Review Auto-Generat ed Referral 07/15/2023 1 1 Specialty Diagnoses / Procedures Referred By Contac t Referred To Contact [facility] Diagnoses Acetabular labrum tear, right, subsequent encounter Procedures PT REHAB FOLLOW UP ORDER THERAPEUTIC EXERCISES RE, EA 15 MIN. Salas Sherman, DINORA [facility] [place] [address] [place] [address] Referral ID Status Reason Start Date Expiration Date Visits Requested Visits Authorized [id number] Pending Review PCP Requested Referral Auto-Generate d Referral 09/11/2022 12/10/2022 1 1 Referral ID Status Reason Start Date Expiration Date Visits Requested Visits Authorized [id number] Pending Review PCP Requested Referral Auto-Generate d Referral 10/06/2022 01/04/2023 1 1 Specialty Diagnoses / Procedures Referred By Contac t Referred To Contact MR IMAGING Diagnoses Chronic right-sided thoracic back pain Spasm of thoracic back muscle Osteoarthritis of spine with radiculopathy, thoracic region DDD (degenerative disc disease), thoracic Paresthesia of skin Procedures MRI THORACIC SPINE WO IVCON MRI SPINAL CANAL THORACIC W/O CONTRAST Gallo Juarez L, DO [address] [place] [address] Mr Imaging Referral ID Status Reason Start Date Expiration Date Visits Requested Visits Authorized [id number] Pending Review Auto-Generat ed Referral 10/31/2022 11/30/2023 1 1 Specialty Diagnoses / Procedures Referred By Contac t Referred To Contact XR IMAGING Diagnoses Neck pain, chronic Osteoarthritis of spine with radiculopathy, cervical region Numbness and tingling in right hand Procedures XR CERV OTHER 4V AP/LAT/OBL RADEX SPINE CERVICAL 4 OR 5 VIEWS Gallo Sanches, DO [address] [place] [address] X[facility] Imaging Referral ID Status Reason Start Date Expiration Date V isits Requested Visits Authorized [id number] Closed Auto-Generate d Referral 10/31/2022 11/30/2023 1 1 Specialty Diagnoses / Procedures Referred By Contac t Referred To Contact Pain Management Diagnoses Chronic right-sided thoracic back pain Spasm of thoracic back muscle Neck pain, chronic Osteoarthritis of spine with radiculopathy, cervical region Numbness and tingling in right hand Procedures CONSULT TO PAIN MGT OFFICE/OUTPATIENT NEW HIGH MDM 60-74 MINUTES Gallo Sanches, DO [address] [place] [address] Referral ID Status Reason Start Date Expiration Date Visits Requested Visits Authorized [id number] Authorized PCP Requested Referral 10/31/2022 10/31/2023 1 1 Specialty Diagnoses / Procedures Referred By Contac t Referred To Contact [facility] Diagnoses Chronic pain of left knee Recurrent left knee instability Lateral meniscus derangement, left Procedures CONSULT TO PHYSICAL THERAPY PHYSICAL THERAPY EVALUATION HIGH COMPLEX 45 MINS Gallo Sanches, DO [address] [place] [address] [facility] [place] [address] [place] [address] Referral ID Status Reason Start Date Expiration Date Visits Requested Visits Authorized [id number] Pending Review Auto-Generat ed Referral 10/31/2022 10/31/2023 1 1 Specialty Diagnoses / Procedures Referred By Contac t Referred To Contact XR IMAGING Diagnoses Chronic pain of left knee Recurrent left knee instability Lateral meniscus derangement, left Procedures XR KNEE GENERAL 4V AP BOTH/PA BOTH/LAT/MERC LEFT RADIOLOGIC EXAM KNEE COMPLETE 4/MORE VIEWS Gallo Sanches, DO [address] [place] [address] X[facility] Imaging Referral ID Status Reason Start Date Expiration Date V isits Requested Visits Authorized [id number] Closed Auto-Generate d Referral 10/31/2022 11/30/2023 1 1 Specialty Diagnoses / Procedures Referred By Contac t Referred To Contact [facility] [place] Diagnoses Lumbar back pain Procedures CONSULT TO SP[facility] OFFICE/OUTPATIENT [facility] 60-74 MINUTES Renan Paige MD [address] [place] [id number] Referral ID Status Reason Start Date Expiration Date Visits Requested Visits Authorized [id number] Authorized PCP Requested Referral 11/07/2022 11/07/2023 1 1 Specialty Diagnoses / Procedures Referred By Contac t Referred To Contact [facility] Diagnoses Trochanteric bursitis of right hip Procedures US HIP RIGHT US COMPL JOINT R-T W/IMAGE DOCUMENTATION Renan Paige MD [address] [place] [address] [facility] Referral ID Status Reason Start Date Expiration Date Visits Requested Visits Authorized [id number] Pending Review Auto-Generat ed Referral 11/07/2022 12/07/2023 1 1 Referral ID Status Reason Start Date Expiration Date Visits Requested Visits Authorized [id number] Pending Review PCP Requested Referral Auto-Generate d Referral 11/06/2022 02/04/2023 1 1 Specialty Diagnoses / Procedures Referred By Contac t Referred To Contact Orthopedics Diagnoses Chronic pain of left knee Recurrent left knee instability Lateral meniscus derangement, left Chronic right-sided thoracic back pain Spasm of thoracic back muscle Procedures CONSULT TO ORTHOPAEDICS OFFICE/OUTPATIENT [facility] 60-74 MINUTES Izabella Holland, COMPLIANCE ADVISOR.CUSTOMER SALES SPECIALIST [address] [place] [address] Referral ID Status Reason Start Date Expiration Date Visits Requested Visits Authorized [id number] Authorized PCP Requested Referral 11/13/2022 11/13/2023 1 1 Specialty Diagnoses / Procedures Referred By Contac t Referred To Contact MR IMAGING Diagnoses Spinal stenosis of lumbar region, unspecified whether neurogenic claudication present Procedures MRI LUMBAR SPINE WO IVCON MRI SPINAL CANAL LUMBAR W/O CONTRAST MATERIAL Ugarte, Bhavik C, MD [address] [facility] [id number] [place] [address] Mr Imaging Referral ID Status Reason Start Date Expiration Date Visits Requested Visits Authorized [id number] Authorized Auto-Generat ed Referral 11/17/2022 12/17/2023 1 1 Specialty Diagnoses / Procedures Referred By Contac t Referred To Contact [facility] Diagnoses Chronic right-sided thoracic back pain Spasm of thoracic back muscle Lumbar degenerative disc disease Muscle weakness Procedures CONSULT TO PHYSICAL THERAPY PHYSICAL THERAPY EVALUATION HIGH COMPLEX 45 MINS Makayla Vanessa, COMPLIANCE ADVISOR.CUSTOMER SALES SPECIALIST [address] [place] [address] [facility] [place] [address] [place] [address] Referral ID Status Reason Start Date Expiration Date Visits Requested Visits Authorized [id number] Pending Review Auto-Generat ed Referral 11/27/2022 11/24/2023 1 1 Referral ID Status Reason Start Date Expiration Date Visits Requested Visits Authorized [id number] Pending Review PCP Requested Referral Auto-Generate d Referral 11/27/2022 02/25/2023 1 1 Referral ID Status Reason Start Date Expiration Date Visits Requested Visits Authorized [id number] Pending Review PCP Requested Referral Auto-Generate d Referral 2023 04/28/2023 1 1 Specialty Diagnoses / Procedures Referred By Contac t Referred To Contact MR IMAGING Diagnoses Pain of right hip Encounter for screening for other musculoskeletal disorder Acetabular labrum tear, right, subsequent encounter Decreased range of right hip movement Procedures MRI HIP WO IVCON RIGHT MRI ANY JT LOWER EXTREM W/O CONTRAST MATRL Gallo Sanches, DO [address] [place] [address] [place] [address] Referral ID Status Reason Start Date Expiration Date V isits Requested Visits Authorized [id number] Closed Auto-Generate d Referral 12/26/2022 01/25/2024 1 1 Specialty Diagnoses / Procedures Referred By Contac t Referred To Contact MR IMAGING Diagnoses Spinal stenosis of lumbar region, unspecified whether neurogenic claudication present Procedures MRI LUMBAR SPINE WO IVCON MRI SPINAL CANAL LUMBAR W/O CONTRAST MATERIAL Bhavik Ugarte MD [address] [facility] [place] [address] [place] [address] Referral ID Status Reason Start Date Expiration Date V isits Requested Visits Authorized [id number] Closed Auto-Generate d Referral 11/17/2022 12/17/2023 1 1 Specialty Diagnoses / Procedures Referred By Contac t Referred To Contact MR IMAGING Diagnoses Chronic right-sided thoracic back pain Spasm of thoracic back muscle Osteoarthritis of spine with radiculopathy, thoracic region DDD (degenerative disc disease), thoracic Paresthesia of skin Procedures MRI THORACIC SPINE WO IVCON MRI SPINAL CANAL THORACIC W/O CONTRAST MATRL Gallo Sanches, DO [address] [place] [address] [place] [address] Referral ID Status Reason Start Date Expiration Date V isits Requested Visits Authorized [id number] Closed Auto-Generate d Referral 11/06/2022 12/21/2022 1 1 Specialty Diagnoses / Procedures Referred By Contac t Referred To Contact Neurology Diagnoses Facial twitching Procedures CONSULT TO NEUROLOGY OFFICE/OUTPATIENT [facility] 60 MINUTES Rossi Martinez APRN.CUSTOMER SALES SPECIALIST [address] [place] [address] Referral ID Status Reason Start Date Expiration Date Visits Requested Visits Authorized [id number] Authorized PCP Requested Referral 12/01/2023 11/30/2024 1 1 Specialty Diagnoses / Procedures Referred By Contac t Referred To Contact Physical Therapy Diagnoses Bilateral plantar fasciitis Procedures FL OFFICE/OUTPATIENT [facility] 60 MINUTES Ryland Kelly MD 1 [facility] [address] [place] [address] Referral ID Status Reason Start Date Expiration Date Visits Requested Visits Authorized [id number] Pending Review Eval and Treat 01/20/2024 07/18/2024 99 99 Scheduling Instructions Eval and treat- bilateral plantar fasciitis Specialty Diagnoses / Procedures Referred By Contac t Referred To Contact Neurology Diagnoses Hemifacial spasm of left side of face Procedures CONSULT TO NEUROLOGY OFFICE/OUTPATIENT [facility] 60 MINUTES Elias Hernandez MD [address] [place], [place] [id number] Referral ID Status Reason Start Date Expiration Date Visits Requested Visits Authorized [id number] Authorized PCP Requested Referral 01/26/2024 01/25/2025 1 1 Specialty Diagnoses / Procedures Referred By Contac t Referred To Contact MR IMAGING Diagnoses Hemifacial spasm of left side of face Procedures MRA BRAIN WO IVCON MRA, HEAD W/O CONTRAST Elias Hernandez MD [address] [place], [place] [id number] Mr Imaging [place] [address] Referral ID Status Reason Start Date Expiration Date Visits Requested Visits Authorized [id number] Authorized Auto-Generat ed Referral 01/26/2024 02/24/2025 1 1 Specialty Diagnoses / Procedures Referred By Contac t Referred To Contact MR IMAGING Diagnoses Hemifacial spasm of left side of face Procedures MRI BRAIN WO/W IVCON MRI BRAIN BRAIN STEM W/O W/CONTRAST MATERIAL Elias Hernandez MD [address] [place], [place] [id number] Mr Imaging [place] [address] Referral ID Status Reason Start Date Expiration Date Visits Requested Visits Authorized [id number] Authorized Auto-Generat ed Referral 01/26/2024 02/24/2025 1 1 Referral ID Status Reason Start Date Expiration Date V isits Requested Visits Authorized [id number] Closed Auto-Generate d Referral 01/26/2024 02/24/2025 1 1 Referral ID Status Reason Start Date Expiration Date V isits Requested Visits Authorized [id number] Closed Auto-Generate d Referral 01/26/2024 02/24/2025 1 1 Specialty Diagnoses / Procedures Referred By Contac t Referred To Contact [facility] Diagnoses It band syndrome, left Procedures CONSULT TO PHYSICAL THERAPY PHYSICAL THERAPY EVALUATION HIGH COMPLEX 45 MINS Gallo Sanches, [address] [place] [address] [facility] [place] [address] [place] [address] Referral ID Status Reason Start Date Expiration Date Visits Requested Visits Authorized [id number] Pending Review Auto-Generat ed Referral 03/16/2024 03/16/2025 1 1 Specialty Diagnoses / Procedures Referred By Vega nash Referred To Contact Diagnoses Facial twitching Bradykinesia Procedures PROVIDER ORDERED FOLLOW UP OFFICE/OUTPATIENT [facility] 60 MINUTES Yovani Donohue MD [address] [place] [address] Referral ID Status Reason Start Date Expiration Date Visits Requested Visits Authorized [id number] Authorized PCP Requested Referral 01/02/2025 07/04/2025 1 1 Medications Administered Section Active Administered Medications - up to 3 most recent administrations Medication Order MAR Action Action Date Dose Rate Site romosozumab-aqqg 210 mg injection (EVENITY) 210 mg, SUBCUTANEOUS, EVERY 1 MONTH, 13 doses, First dose on Penny 09/25/22 at 1230, Last dose on 09/20/23 at 1230, Allow to sit for 30 minutes to reach room temperature before injection. Total dose is 2 syringes (210 mg total) injection into abdomen, thigh, or upper arm. Given 10/01/2022 4:23 PM EST 210 mg Arm, Left Active Administered Medications - up to 3 most recent administrations Medication Order MAR Action Action Date Dose Rate Site romosozumab-aqqg 210 mg injection (EVENITY) 210 mg, SUBCUTANEOUS, EVERY 1 MONTH, 13 doses, First dose on Penny 09/25/22 at 1230, Last dose on 09/20/23 at 1230, Allow to sit for 30 minutes to reach room temperature before injection. Total dose is 2 syringes (210 mg total) injection into abdomen, thigh, or upper arm. Given 11/04/2022 10:55 AM EDT 210 mg Arm, Left Given 10/01/2022 4:23 PM EST 210 mg Ar m, Left Active Administered Medications - up to 3 most recent administrations Medication Order MAR Action Action Date Dose Rate Site romosozumab-aqqg 210 mg injection (EVENITY) 210 mg, SUBCUTANEOUS, EVERY 1 MONTH, 13 doses, First dose on Penny 09/25/22 at 1230, Last dose on 09/20/23 at 1230, Allow to sit for 30 minutes to reach room temperature before injection. Total dose is 2 syringes (210 mg total) injection into abdomen, thigh, or upper arm. Given 12/04/2022 2:06 PM EDT 210 mg Arm, Left Given 11/04/2022 10:55 AM EDT 210 mg A rm, Left Given 10/01/2022 4:23 PM EST 210 mg Ar m, Left Inactive Administered Medications - up to 3 most recent administrations Medication Order MAR Action Action Date Dose Rate Site betamethasone acetate-betamethasone sodium phosphate 12 mg injection (CELESTONE) 12 mg, Injection - FOR ORTHO USE ONLY, ONE TIME INJECTION, 1 dose, Starting on Thu01/02/23 at 1656, Until Thu01/02/23 at 1656 Given 01/02/2023 4:56 PM EDT 12 mg Kne e, Left lidocaine (PF) 10 mg/mL (1 %) 3 mL injection (XYLOCAINE) 3 mL, Injection - FOR ORTHO USE ONLY, ONE TIME INJECTION, 1 dose, Starting on Thu01/02/23 at 1656, Until Thu01/02/23 at 1656 Given 01/02/2023 4:56 PM EDT 3 mL Kne e, Left Active Administered Medications - up to 3 most recent administrations Medication Order MAR Action Action Date Dose Rate Site romosozumab-aqqg 210 mg injection (EVENITY) 210 mg, SUBCUTANEOUS, EVERY 1 MONTH, 13 doses, First dose on Penny 09/25/22 at 1230, Last dose on 09/20/23 at 1230, Allow to sit for 30 minutes to reach room temperature before injection. Total dose is 2 syringes (210 mg total) injection into abdomen, thigh, or upper arm. Given 01/07/2023 11:00 AM EDT 210 mg Arm, Left Given 12/04/2022 2:06 PM EDT 210 mg Ar m, Left Given 11/04/2022 10:55 AM EDT 210 mg A rm, Left Active Administered Medications - up to 3 most recent administrations Medication Order MAR Action Action Date Dose Rate Site romosozumab-aqqg 210 mg injection (EVENITY) 210 mg, SUBCUTANEOUS, EVERY 1 MONTH, 13 doses, First dose on Penny 09/25/22 at 1230, Last dose on 09/20/23 at 1230, Allow to sit for 30 minutes to reach room temperature before injection. Total dose is 2 syringes (210 mg total) injection into abdomen, thigh, or upper arm. Given 02/06/2023 10:52 AM EDT 210 mg Arm, Left Given 01/07/2023 11:00 AM EDT 210 mg A rm, Left Given 12/04/2022 2:06 PM EDT 210 mg Ar m, Left Active Administered Medications - up to 3 most recent administrations Medication Order MAR Action Action Date Dose Rate Site romosozumab-aqqg 210 mg injection (EVENITY) 210 mg, SUBCUTANEOUS, EVERY 1 MONTH, 13 doses, First dose on Penny 09/25/22 at 1230, Last dose on 09/20/23 at 1230, Allow to sit for 30 minutes to reach room temperature before injection. Total dose is 2 syringes (210 mg total) injection into abdomen, thigh, or upper arm. Given 03/09/2023 11:26 AM EDT 210 mg Arm, Left Given 02/06/2023 10:52 AM EDT 210 mg A rm, Left Given 01/07/2023 11:00 AM EDT 210 mg A rm, Left Active Administered Medications - up to 3 most recent administrations Medication Order [facility] Action Action Date Dose Rate Site romosozumab-aqqg 210 mg injection (EVENITY) 210 mg, SUBCUTANEOUS, EVERY 1 MONTH, 13 doses, First dose on Penny 09/25/22 at 1230, Last dose on 09/20/23 at 1230, Allow to sit for 30 minutes to reach room temperature before injection. Total dose is 2 syringes (210 mg total) injection into abdomen, thigh, or upper arm. Given 04/09/2023 1:56 PM EDT 210 mg Arm, Left Given 03/09/2023 11:26 AM EDT 210 mg A rm, Left Given 02/06/2023 10:52 AM EDT 210 mg A rm, Left Active Administered Medications - up to 3 most recent administrations Medication Order MAR Action Action Date Dose Rate Site romosozumab-aqqg 210 mg injection (EVENITY) 210 mg, SUBCUTANEOUS, EVERY 1 MONTH, 13 doses, First dose on Penny 09/25/22 at 1230, Last dose on 09/20/23 at 1230, Allow to sit for 30 minutes to reach room temperature before injection. Total dose is 2 syringes (210 mg total) injection into abdomen, thigh, or upper arm. Given 05/11/2023 10:30 AM EDT 210 mg Arm, Left Given 04/09/2023 1:56 PM EDT 210 mg Ar m, Left Given 03/09/2023 11:26 AM EDT 210 mg A rm, Left Active Administered Medications - up to 3 most recent administrations Medication Order MAR Action Action Date Dose Rate Site romosozumab-aqqg 210 mg injection (EVENITY) 210 mg, SUBCUTANEOUS, EVERY 1 MONTH, 13 doses, First dose on Penny 09/25/22 at 1230, Last dose on 09/20/23 at 1230, Allow to sit for 30 minutes to reach room temperature before injection. Total dose is 2 syringes (210 mg total) injection into abdomen, thigh, or upper arm. Given 06/11/2023 1:21 PM EST 210 mg Arm, Left Given 05/11/2023 10:30 AM EDT 210 mg A rm, Left Given 04/09/2023 1:56 PM EDT 210 mg Ar m, Left Additional Source Comments INFORMATION SOURCE (unrecogn ized section and content) DATE CREATED AUTHOR 01/26/2018 [facility] DATE CREATED AUTHOR AUTHOR'S ORGANIZ ATION 05/24/2020 [facility] DATE CREATED AUTHOR AUTHOR'S ORGANIZ ATION 04/10/2021 [facility] DATE CREATED AUTHOR AUTHOR'S ORGANIZ ATION 01/09/2022 [facility] DATE CREATED AUTHOR AUTHOR'S ORGANIZ ATION 05/29/2022 [facility] DATE CREATED AUTHOR AUTHOR'S ORGANIZ ATION 09/23/2023 [facility] ([place]) DATE CREATED AUTHOR AUTHOR'S ORGANIZ ATION 01/21/2024 [facility] DATE CREATED AUTHOR AUTHOR'S ORGANIZ ATION 03/14/2025 [facility] DATE CREATED AUTHOR AUTHOR'S ORGANIZ ATION 04/08/2025 [facility] DATE CREATED AUTHOR AUTHOR'S ORGANIZ ATION 04/12/2025 [facility] DATE CREATED AUTHOR AUTHOR'S ORGANIZ ATION 04/13/2025 [facility] Reason for Visit (unrecogniz ed section and content) Reason Comments PT Discharge Specialty Diagnoses / Procedures Referred By Contact Referred To Contact [facility] Diagnoses Acetabular labrum tear, right, subsequent encounter Procedures CONSULT TO PHYSICAL THERAPY PHYSICAL THERAPY EVALUATION HIGH COMPLEX 45 MINS Aida Madden PA-C [address] [place] [address] [facility] [place] [address] [place] [address] Referral ID Status Reason Start Date Expiration Date Visits Requested Visits Authorized [id number] Authorized Auto-Generat ed Referral 08/03/2022 08/02/2023 99 99 Reason Comments PT Progress Note Specialty Diagnoses / Procedures Referred By Contact Referred To Contact [facility] Diagnoses Acetabular labrum tear, right, subsequent encounter Procedures CONSULT TO PHYSICAL THERAPY PHYSICAL THERAPY EVALUATION HIGH COMPLEX 45 MINS Aida Madden PA-C [address] [place] [address] [facility] [address] [address] Reason Comments Physical Therapy Specialty Diagnoses / Procedures Referred By Contac t Referred To Contact Physical Therapy / PHYSICAL THERAPY Diagnoses side back pain pt dry needling Procedures EST RS PT ORTH Gallo Leonard L, DO [address] [place] [address] Salas Sherman PT Referral ID Status Reason Start Date Expiration Date V isits Requested Visits Authorized [id number] Authorized 08/03/2021 08/02/2022 99 99 Specialty Diagnoses / Procedures Referred By Contac t Referred To Contact Physical Therapy / PHYSICAL THERAPY Diagnoses side back pain pt dry needling Procedures EST RS PT ORTH Gallo Leonard L, DO [address] [place] [address] Salas Sherman PT [address] [place] [address] Referral ID Status Reason Start Date Expiration Date V isits Requested Visits Authorized [id number] Authorized 08/03/2021 08/02/2022 20 20 Reason Comments PT Progress Note Reason For Visit Description Start Date Postop - subsequent visit Preliminary reason f or visit data, not yet signed by the author as of v post Remove bilateral tiss ue expanders; insert bilateral breast implants and revision bilateral breast reconstruction with fat grafting on 11/30/2017 Reason Comments Throat Problem Dry mouth, cough, Dy sphagia, choking Specialty Diagnoses / Procedures Referred By Marcusac t Referred To Contact MR IMAGING Diagnoses Other specified disorders of bone, other site Procedures MRI HIP WO/W IVCON RT MRI ANY JT LOWER EXTREM W/O & W/CONTRAST Minnie Lazcano, GERALDINE.CUSTOMER SALES SPECIALIST [address] [place] [address] Mr Imaging Referral ID Status Reason Start Date Expiration Date V isits Requested Visits Authorized [id number] Closed Auto-Generate d Referral 10/09/2021 11/28/2021 1 1 Reason Comments Results Reason Comments Recheck Reason Comments New Specialty Diagnoses / Procedures [facility] Referred To Contact Orthopedics Diagnoses Right hip pain Sacroiliac joint dysfunction of right side Procedures CONSULT TO ORTHOPAEDICS OFFICE/OUTPATIENT NEW HIGH MDM 60-74 MINUTES Gallo Sanches, DO [address] [place] [phone] Referral ID Status Reason Start Date Expiration Date V isits Requested Visits Authorized [id number] Closed PCP Requested Referral 11/11/2021 11/11/2022 1 1 Reason Comments Schedule Surgery Reason Comments Consult Reason Comments Pre-op Tamoxifen Instructions Orders Reason Comments Procedure Follow Up EGD 11/05/21 H Pylori Reason Comments Pre-Op Visit Reason Comments PT Eval Reason Comments Post Op Call Reason Comments Post Op Reason Comments Yearly Exam Reason Comments Question Reason Comments Breast MRI Reason Comments GERD EGD 11/05/21 Specialty Diagnoses / Procedures [facility] Referred To Contact MR IMAG[facility] Diagnoses Encounter for breast cancer screening using non-mammogram modality History of breast cancer Procedures MRI BREAST WO/W IVCON BILAT MRI BREAST WITHOUT&WITH CONTRAST W/CAD BILATERAL Gallo Sanches, DO [address] [place] [address] Mr Imaging Referral ID Status Reason Start Date Expiration Date V isits Requested Visits Authorized [id number] Closed Auto-Generate d Referral 05/05/2022 06/20/2022 1 1 Reason Comments Osteoporosis New Patient Specialty Diagnoses / Procedures Referred By Contac t Referred To Contact Diagnoses Osteoporosis, unspecified osteoporosis type, unspecified pathological fracture presence Procedures CONSULT TO ENDO METABOLIC BONE OFFICE/OUTPATIENT [facility] 60-74 MINUTES Sanches Gallo Soriano, DO [address] [place] [address] Referral ID Status Reason Start Date Expiration Date V isits Requested Visits Authorized [id number] Closed PCP Requested Referral 05/05/2022 05/05/2023 1 1 Reason Comments Refill Request Reason Comments Osteoporosis Reason Comments Follow Up Reason Comments scheduling nurse visit Reason Comments PT Eval Reason Comments Follow Up Reason Comments PT Re-eval Reason Comments PA--EVENITY 2022 Reason Comments CAM Order Request Reason Comments Evenity Injection #1 of 12 Reason Comments Physical Therapy Reason Comments Recheck Abdominal pain, hoar seness, heartburn, constipation. Pt was trying to wean off of Famotidine due to her lowered bone density. Reason Comments Back Pain Reason Comments Evenity Injection #2 of 12 Reason Comments Follow Up Specialty Diagnoses / Procedures Referred By Contac t Referred To Contact Pain Management Diagnoses Chronic right-sided thoracic back pain Spasm of thoracic back muscle Neck pain, chronic Osteoarthritis of spine with radiculopathy, cervical region Numbness and tingling in right hand Procedures CONSULT TO PAIN MGT OFFICE/OUTPATIENT [facility] 60-74 MINUTES Gallo Sanches, DO [address] [place] [phone] Referral ID Status Reason Start Date Expiration Date V isits Requested Visits Authorized [id number] Closed PCP Requested Referral 10/31/2022 10/31/2023 1 1 Reason Comments Wheezing Sinusitis Reason Comments Results Reason Comments Cough Sneezing, runny eyes , scratchy throat, chest feels heavy, headache, congestion, cory ear pain x 5 days. Reason Comments Evenity Injection #3 of 12 Reason Comments New Knee Pain Reason Comments Eventity Injection Reason Comments Patient Update Reason Comments Evenity Injection Reason Comments Orders Reason Comments Recheck Colonoscopy Specialty Diagnoses / Procedures Referred By Contac t Referred To Contact [facility] Diagnoses Acetabular labrum tear, right, subsequent encounter Procedures PT REHAB FOLLOW UP ORDER THERAPEUTIC EXERCISES RE, EA 15 MIN. Salas Sherman, PT [facility] [place] [address] [place] [address] Referral ID Status Reason Start Date Expiration Date Visits Requested Visits Authorized [id number] Pending Review PCP Requested Referral Auto-Generate d Referral 2023 04/28/2023 1 1 Reason Comments Established Patient Reason Comments EVENITY INJECTION #8 OF 12 Reason Comments Radiology NM Specialty Diagnoses / Procedures Referred By Contac t Referred To Contact MOLECULAR & FUNCTIONAL IMAGING Diagnoses LUQ pain Bloating Early satiety Procedures NM GASTRIC EMPTYING SOLID GASTRIC EMPTYING STUDY Ceci Luna PA-C [address] [facility] [place] [address] [facility] [address] [place] [phone] Referral ID Status Reason Start Date Expiration Date V isits Requested Visits Authorized [id number] Closed Auto-Generate d Referral 10/29/2022 11/28/2023 1 1 Specialty Diagnoses / Procedures Referred By Contac t Referred To Contact MR IMAGING Diagnoses Pain of right hip Encounter for screening for other musculoskeletal disorder Acetabular labrum tear, right, subsequent encounter Decreased range of right hip movement Procedures MRI HIP WO IVCON RIGHT MRI ANY JT LOWER EXTREM W/O CONTRAST Gallo Juarez, DO [address] [place] [address] Mr Imaging [id number] Referral ID Status Reason Start Date Expiration Date V isits Requested Visits Authorized [id number] Closed Auto-Generate d Referral 12/26/2022 01/25/2024 1 1 Specialty Diagnoses / Procedures Referred By Contac t Referred To Contact MR IMAGING Diagnoses Chronic right-sided thoracic back pain Spasm of thoracic back muscle Osteoarthritis of spine with radiculopathy, thoracic region DDD (degenerative disc disease), thoracic Paresthesia of skin Procedures MRI THORACIC SPINE WO IVCON MRI SPINAL CANAL THORACIC W/O CONTRAST Gallo Juarez, DO [address] [place] [address] [place] [address] Referral ID Status Reason Start Date Expiration Date V isits Requested Visits Authorized [id number] Closed Auto-Generate d Referral 11/06/2022 12/21/2022 1 1 Reason Comments Patient Question EKG results at pre o p exam for 07/24 upcoming surgery Reason Comments Evenity Injection #12 of 12 Reason Comments PA--PROLIA (NEW START) Reason Onset Date Comments Refill Request 09/23/2023 Reason Comments Patient Question Reason Onset Date Comments Refill Request 10/09/2023 Reason Comments PA--Prolia 2023 Reason Comments Request Outside Medical Records Reason Comments Eye Problem Left eye twitching, droopy eyelids, constant since Jun 2023. Reason Comments Appointment Reason Comments Spirometry Specialty Diagnoses / Procedures Referred By Contac t Referred To Contact [facility] Diagnoses Chronic cough Persistent dry cough Procedures SPIROMETRY - BASELINE AND POST DILATOR BRNCDILAT RSPSE SPMTRY PRE&POST-BRNCDILAT ADMN Mitzi Martinezah, COMPLIANCE ADVISOR.CUSTOMER SALES SPECIALIST [address] [place] [address] [facility] [place] [address] [place] [id number] Referral ID Status Reason Start Date Expiration Date V isits Requested Visits Authorized [id number] Closed Auto-Generate d Referral 12/08/2023 01/06/2025 [address] Specialty Diagnoses / Procedures Referred By Contac t Referred To Contact CT IMAGING Diagnoses Chronic cough Persistent dry cough Procedures CT CHEST WO IVCON DIAGNOSTIC COMPUTED TOMOGRAPHY THORAX W/O CNTRST CalvinRossi, COMPLIANCE ADVISOR.CUSTOMER SALES SPECIALIST [address] [place] [address] [place] [address] Referral ID Status Reason Start Date Expiration Date V isits Requested Visits Authorized [id number] Closed Auto-Generate d Referral 12/08/2023 01/06/2025 1 1 Specialty Diagnoses / Procedures Referred By Contac t Referred To Contact [facility] Diagnoses Uncomplicated asthma, unspecified asthma severity, unspecified whether persistent Procedures NITRIC OXIDE, EXHALED NITRIC OXIDE GAS DETERMINATION Javier Edmonds MD [address] [address] [facility] [place] [address] [place] [id number] Referral ID Status Reason Start Date Expiration Date V isits Requested Visits Authorized [id number] Closed Auto-Generate d Referral 01/13/2024 02/11/2025 1 1 Reason Comments Chronic cough PFT Specialty Diagnoses / Procedures Referred By Contac t Referred To Contact Pulmonary and Critical Care Medicine Diagnoses Persistent dry cough Procedures CONSULT TO PULM/CRITICAL CARE OFFICE/OUTPATIENT [facility] 60 MINUTES Rossi Martinez, COMPLIANCE ADVISOR.CUSTOMER SALES SPECIALIST [address] [place] [address] Referral ID Status Reason Start Date Expiration Date V isits Requested Visits Authorized [id number] Closed PCP Requested Referral 01/08/2024 01/07/2025 1 1 Reason Comments Radiology US Specialty Diagnoses / Procedures Referred By Contac t Referred To Contact US IMAGING Diagnoses Liver cyst Procedures US ABD RIGHT UPPER QUADRANT US ABDOMINAL REAL TIME W/IMAGE LIMITED Rossi Martinez, COMPLIANCE ADVISOR.CUSTOMER SALES SPECIALIST [address] [place] [address] [place] [address] Referral ID Status Reason Start Date Expiration Date V isits Requested Visits Authorized [id number] Closed Auto-Generate d Referral 01/07/2024 02/05/2025 1 1 Reason Comments New Patient Right heel pain Reason Comments facial twitch Specialty Diagnoses / Procedures Referred By Contac t Referred To Contact Neurology Diagnoses Facial twitching Procedures CONSULT TO NEUROLOGY OFFICE/OUTPATIENT [facility] 60 MINUTES CalvinRossi puckett, COMPLIANCE ADVISOR.CUSTOMER SALES SPECIALIST [address] [place] [address] Referral ID Status Reason Start Date Expiration Date V isits Requested Visits Authorized [id number] Closed PCP Requested Referral 12/01/2023 11/30/2024 1 1 Reason Comments Recheck IBS with constipatio n-has been having diarrhea but thinks she had a stomach bug Specialty Diagnoses / Procedures Referred By Contac t Referred To Contact MR IMAGING Diagnoses Hemifacial spasm of left side of face Procedures MRI BRAIN WO/W IVCON MRI BRAIN BRAIN STEM W/O W/[place] [address] [place] [address] [place] [address] Referral ID Status Reason Start Date Expiration Date V isits Requested Visits Authorized [id number] Closed Auto-Generate d Referral 01/26/2024 02/24/2025 1 1 Reason Comments Radiology MRI Specialty Diagnoses / Procedures Referred By Contac t Referred To Contact MR IMAGING Diagnoses Hemifacial spasm of left side of face Procedures MRA BRAIN WO IVCON MRA, [place] [address] [place] [address] [place] [address] Referral ID Status Reason Start Date Expiration Date V isits Requested Visits Authorized [id number] Closed Auto-Generate d Referral 01/26/2024 02/24/2025 1 1 Reason Comments Physical Reason Comments CAM Order Reason Comments Radio Gen RMP Abdominal Pain Reason Comments Prolia Injection Specialty Diagnoses / Procedures Referred By Contac t Referred To Contact Endocrinology / ENDOCRINOLOGY Diagnoses Age-related osteoporosis without current pathological fracture prolia Procedures DENOSUMAB INJECTION NURSE Esme Shoemaker MD [address] [place] [address] [facility] [address] [address] Referral ID Status Reason Start Date Expiration Date V isits Requested Visits Authorized [id number] Authorized 10/23/2023 08/02/2024 99 99 Reason Comments Radio Gen RMP Specialty Diagnoses / Procedures Referred By Contac t Referred To Contact XR IMAGING Diagnoses Tear of right acetabular labrum, subsequent encounter Procedures XR HIP GENERAL 3V PELV/AP/LAT RIGHT RADEX HIP UNILATERAL WITH PELVIS 2-3 VIEWS Aida Madden, [address] [place] [address] Xr Imaging [id number] Referral ID Status Reason Start Date Expiration Date V isits Requested Visits Authorized [id number] Closed Auto-Generate d Referral 12/09/2021 01/08/2023 1 1 Reason Comments Consult 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] Specialty Diagnoses / Procedures Referred By Contac t Referred To Contact Neurology Diagnoses Hemifacial spasm of left side of face Procedures CONSULT TO NEUROLOGY OFFICE/OUTPATIENT [facility] 60 [place] [address] [place] [address] Referral ID Status Reason Start Date Expiration Date V isits Requested Visits Authorized [id number] Closed PCP Requested Referral 01/26/2024 01/25/2025 1 1 Reason Comments Recheck GERD, non-celiac glu ten sensitivity Reason Comments Gas Reason Comments Nasal Congestion cough, headache, bod yaches, chills x 1 day Reason Onset Date Comments Refill Request 09/26/2024 Reason Onset Date Comments Refill Request 10/10/2024 Reason Comments Follow Up Established Patient Reason Comments Recheck IBS Reason Comments Recheck IBS with constipatio n- doing well on [employer] Comments (unrecognize d section and content) In the event this informatio n is protected by the Federal Confidentiality of Alcohol and Drug Abuse Patient Records regulations: The Federal rules restrict any use of the information to criminally investigate or prosecute any alcohol or drug abuse patient.[facility] SystemIn the event this information is protected by the Federal Confidentiality of Alcohol and Drug Abuse Patient Records regulations: The Federal rules restrict any use of the information to criminally investigate or prosecute any alcohol or drug abuse patient.[facility] SystemIn the event this information is protected by the Federal Confidentiality of Alcohol and Drug Abuse Patient Records regulations: The Federal rules restrict any use of the information to criminally investigate or prosecute any alcohol or drug abuse patient.[facility] SystemIn the event this information is protected by the Federal Confidentiality of Alcohol and Drug Abuse Patient Records regulations: The Federal rules restrict any use of the information to criminally investigate or prosecute any alcohol or drug abuse patient.[facility] SystemIn the event this information is protected by the Federal Confidentiality of Alcohol and Drug Abuse Patient Records regulations: The Federal rules restrict any use of the information to criminally investigate or prosecute any alcohol or drug abuse patient.[facility] SystemIn the event this information is protected by the Federal Confidentiality of Alcohol and Drug Abuse Patient Records regulations: The Federal rules restrict any use of the information to criminally investigate or prosecute any alcohol or drug abuse patient.[facility] SystemIn the event this information is protected by the Federal Confidentiality of Alcohol and Drug Abuse Patient Records regulations: The Federal rules restrict any use of the information to criminally investigate or prosecute any alcohol or drug abuse patient.[facility] SystemIn the event this information is protected by the Federal Confidentiality of Alcohol and Drug Abuse Patient Records regulations: The Federal rules restrict any use of the information to criminally investigate or prosecute any alcohol or drug abuse patient.[facility] SystemIn the event this information is protected by the Federal Confidentiality of Alcohol and Drug Abuse Patient Records regulations: The Federal rules restrict any use of the information to criminally investigate or prosecute any alcohol or drug abuse patient.[facility] SystemIn the event this information is protected by the Federal Confidentiality of Alcohol and Drug Abuse Patient Records regulations: The Federal rules restrict any use of the information to criminally investigate or prosecute any alcohol or drug abuse patient.[facility] SystemIn the event this information is protected by the Federal Confidentiality of Alcohol and Drug Abuse Patient Records regulations: The Federal rules restrict any use of the information to criminally investigate or prosecute any alcohol or drug abuse patient.[facility] SystemIn the event this information is protected by the Federal Confidentiality of Alcohol and Drug Abuse Patient Records regulations: The Federal rules restrict any use of the information to criminally investigate or prosecute any alcohol or drug abuse patient.[facility] SystemIn the event this information is protected by the Federal Confidentiality of Alcohol and Drug Abuse Patient Records regulations: The Federal rules restrict any use of the information to criminally investigate or prosecute any alcohol or drug abuse patient.[facility] SystemIn the event this information is protected by the Federal Confidentiality of Alcohol and Drug Abuse Patient Records regulations: The Federal rules restrict any use of the information to criminally investigate or prosecute any alcohol or drug abuse patient.[facility] SystemIn the event this information is protected by the Federal Confidentiality of Alcohol and Drug Abuse Patient Records regulations: The Federal rules restrict any use of the information to criminally investigate or prosecute any alcohol or drug abuse patient.[facility] SystemIn the event this information is protected by the Federal Confidentiality of Alcohol and Drug Abuse Patient Records regulations: The Federal rules restrict any use of the information to criminally investigate or prosecute any alcohol or drug abuse patient.[facility] SystemIn the event this information is protected by the Federal Confidentiality of Alcohol and Drug Abuse Patient Records regulations: The Federal rules restrict any use of the information to criminally investigate or prosecute any alcohol or drug abuse patient.[facility] SystemIn the event this information is protected by the Federal Confidentiality of Alcohol and Drug Abuse Patient Records regulations: The Federal rules restrict any use of the information to criminally investigate or prosecute any alcohol or drug abuse patient.[facility] SystemIn the event this information is protected by the Federal Confidentiality of Alcohol and Drug Abuse Patient Records regulations: The Federal rules restrict any use of the information to criminally investigate or prosecute any alcohol or drug abuse patient.[facility] SystemIn the event this information is protected by the Federal Confidentiality of Alcohol and Drug Abuse Patient Records regulations: The Federal rules restrict any use of the information to criminally investigate or prosecute any alcohol or drug abuse patient.[facility] SystemIn the event this information is protected by the Federal Confidentiality of Alcohol and Drug Abuse Patient Records regulations: The Federal rules restrict any use of the information to criminally investigate or prosecute any alcohol or drug abuse patient.[facility] SystemIn the event this information is protected by the Federal Confidentiality of Alcohol and Drug Abuse Patient Records regulations: The Federal rules restrict any use of the information to criminally investigate or prosecute any alcohol or drug abuse patient.[facility] SystemIn the event this information is protected by the Federal Confidentiality of Alcohol and Drug Abuse Patient Records regulations: The Federal rules restrict any use of the information to criminally investigate or prosecute any alcohol or drug abuse patient.[facility] SystemIn the event this information is protected by the Federal Confidentiality of Alcohol and Drug Abuse Patient Records regulations: The Federal rules restrict any use of the information to criminally investigate or prosecute any alcohol or drug abuse patient.[facility] SystemIn the event this information is protected by the Federal Confidentiality of Alcohol and Drug Abuse Patient Records regulations: The Federal rules restrict any use of the information to criminally investigate or prosecute any alcohol or drug abuse patient.[facility] SystemIn the event this information is protected by the Federal Confidentiality of Alcohol and Drug Abuse Patient Records regulations: The Federal rules restrict any use of the information to criminally investigate or prosecute any alcohol or drug abuse patient.[facility] SystemIn the event this information is protected by the Federal Confidentiality of Alcohol and Drug Abuse Patient Records regulations: The Federal rules restrict any use of the information to criminally investigate or prosecute any alcohol or drug abuse patient.[facility] SystemIn the event this information is protected by the Federal Confidentiality of Alcohol and Drug Abuse Patient Records regulations: The Federal rules restrict any use of the information to criminally investigate or prosecute any alcohol or drug abuse patient.[facility] SystemIn the event this information is protected by the Federal Confidentiality of Alcohol and Drug Abuse Patient Records regulations: The Federal rules restrict any use of the information to criminally investigate or prosecute any alcohol or drug abuse patient.[facility] SystemIn the event this information is protected by the Federal Confidentiality of Alcohol and Drug Abuse Patient Records regulations: The Federal rules restrict any use of the information to criminally investigate or prosecute any alcohol or drug abuse patient.[facility] SystemIn the event this information is protected by the Federal Confidentiality of Alcohol and Drug Abuse Patient Records regulations: The Federal rules restrict any use of the information to criminally investigate or prosecute any alcohol or drug abuse patient.[facility] SystemIn the event this information is protected by the Federal Confidentiality of Alcohol and Drug Abuse Patient Records regulations: The Federal rules restrict any use of the information to criminally investigate or prosecute any alcohol or drug abuse patient.[facility] SystemIn the event this information is protected by the Federal Confidentiality of Alcohol and Drug Abuse Patient Records regulations: The Federal rules restrict any use of the information to criminally investigate or prosecute any alcohol or drug abuse patient.[facility] SystemIn the event this information is protected by the Federal Confidentiality of Alcohol and Drug Abuse Patient Records regulations: The Federal rules restrict any use of the information to criminally investigate or prosecute any alcohol or drug abuse patient.[facility] SystemIn the event this information is protected by the Federal Confidentiality of Alcohol and Drug Abuse Patient Records regulations: The Federal rules restrict any use of the information to criminally investigate or prosecute any alcohol or drug abuse patient.[facility] SystemIn the event this information is protected by the Federal Confidentiality of Alcohol and Drug Abuse Patient Records regulations: The Federal rules restrict any use of the information to criminally investigate or prosecute any alcohol or drug abuse patient.[facility] SystemIn the event this information is protected by the Federal Confidentiality of Alcohol and Drug Abuse Patient Records regulations: The Federal rules restrict any use of the information to criminally investigate or prosecute any alcohol or drug abuse patient.[facility] SystemIn the event this information is protected by the Federal Confidentiality of Alcohol and Drug Abuse Patient Records regulations: The Federal rules restrict any use of the information to criminally investigate or prosecute any alcohol or drug abuse patient.[facility] SystemIn the event this information is protected by the Federal Confidentiality of Alcohol and Drug Abuse Patient Records regulations: The Federal rules restrict any use of the information to criminally investigate or prosecute any alcohol or drug abuse patient.[facility] SystemIn the event this information is protected by the Federal Confidentiality of Alcohol and Drug Abuse Patient Records regulations: The Federal rules restrict any use of the information to criminally investigate or prosecute any alcohol or drug abuse patient.[facility] SystemIn the event this information is protected by the Federal Confidentiality of Alcohol and Drug Abuse Patient Records regulations: The Federal rules restrict any use of the information to criminally investigate or prosecute any alcohol or drug abuse patient.[facility] SystemIn the event this information is protected by the Federal Confidentiality of Alcohol and Drug Abuse Patient Records regulations: The Federal rules restrict any use of the information to criminally investigate or prosecute any alcohol or drug abuse patient.[facility] SystemIn the event this information is protected by the Federal Confidentiality of Alcohol and Drug Abuse Patient Records regulations: The Federal rules restrict any use of the information to criminally investigate or prosecute any alcohol or drug abuse patient.[facility] SystemIn the event this information is protected by the Federal Confidentiality of Alcohol and Drug Abuse Patient Records regulations: The Federal rules restrict any use of the information to criminally investigate or prosecute any alcohol or drug abuse patient.[facility] SystemIn the event this information is protected by the Federal Confidentiality of Alcohol and Drug Abuse Patient Records regulations: The Federal rules restrict any use of the information to criminally investigate or prosecute any alcohol or drug abuse patient.[facility] SystemIn the event this information is protected by the Federal Confidentiality of Alcohol and Drug Abuse Patient Records regulations: The Federal rules restrict any use of the information to criminally investigate or prosecute any alcohol or drug abuse patient.[facility] SystemIn the event this information is protected by the Federal Confidentiality of Alcohol and Drug Abuse Patient Records regulations: The Federal rules restrict any use of the information to criminally investigate or prosecute any alcohol or drug abuse patient.[facility] SystemIn the event this information is protected by the Federal Confidentiality of Alcohol and Drug Abuse Patient Records regulations: The Federal rules restrict any use of the information to criminally investigate or prosecute any alcohol or drug abuse patient.[facility] SystemIn the event this information is protected by the Federal Confidentiality of Alcohol and Drug Abuse Patient Records regulations: The Federal rules restrict any use of the information to criminally investigate or prosecute any alcohol or drug abuse patient.[facility] SystemIn the event this information is protected by the Federal Confidentiality of Alcohol and Drug Abuse Patient Records regulations: The Federal rules restrict any use of the information to criminally investigate or prosecute any alcohol or drug abuse patient.[facility] SystemIn the event this information is protected by the Federal Confidentiality of Alcohol and Drug Abuse Patient Records regulations: The Federal rules restrict any use of the information to criminally investigate or prosecute any alcohol or drug abuse patient.[facility] SystemIn the event this information is protected by the Federal Confidentiality of Alcohol and Drug Abuse Patient Records regulations: The Federal rules restrict any use of the information to criminally investigate or prosecute any alcohol or drug abuse patient.[facility] SystemIn the event this information is protected by the Federal Confidentiality of Alcohol and Drug Abuse Patient Records regulations: The Federal rules restrict any use of the information to criminally investigate or prosecute any alcohol or drug abuse patient.[facility] SystemIn the event this information is protected by the Federal Confidentiality of Alcohol and Drug Abuse Patient Records regulations: The Federal rules restrict any use of the information to criminally investigate or prosecute any alcohol or drug abuse patient.[facility] SystemIn the event this information is protected by the Federal Confidentiality of Alcohol and Drug Abuse Patient Records regulations: The Federal rules restrict any use of the information to criminally investigate or prosecute any alcohol or drug abuse patient.[facility] SystemIn the event this information is protected by the Federal Confidentiality of Alcohol and Drug Abuse Patient Records regulations: The Federal rules restrict any use of the information to criminally investigate or prosecute any alcohol or drug abuse patient.[facility] SystemIn the event this information is protected by the Federal Confidentiality of Alcohol and Drug Abuse Patient Records regulations: The Federal rules restrict any use of the information to criminally investigate or prosecute any alcohol or drug abuse patient.[facility] SystemIn the event this information is protected by the Federal Confidentiality of Alcohol and Drug Abuse Patient Records regulations: The Federal rules restrict any use of the information to criminally investigate or prosecute any alcohol or drug abuse patient.[facility] SystemIn the event this information is protected by the Federal Confidentiality of Alcohol and Drug Abuse Patient Records regulations: The Federal rules restrict any use of the information to criminally investigate or prosecute any alcohol or drug abuse patient.[facility] SystemIn the event this information is protected by the Federal Confidentiality of Alcohol and Drug Abuse Patient Records regulations: The Federal rules restrict any use of the information to criminally investigate or prosecute any alcohol or drug abuse patient.[facility] SystemIn the event this information is protected by the Federal Confidentiality of Alcohol and Drug Abuse Patient Records regulations: The Federal rules restrict any use of the information to criminally investigate or prosecute any alcohol or drug abuse patient.[facility] SystemIn the event this information is protected by the Federal Confidentiality of Alcohol and Drug Abuse Patient Records regulations: The Federal rules restrict any use of the information to criminally investigate or prosecute any alcohol or drug abuse patient.[facility] SystemIn the event this information is protected by the Federal Confidentiality of Alcohol and Drug Abuse Patient Records regulations: The Federal rules restrict any use of the information to criminally investigate or prosecute any alcohol or drug abuse patient.[facility] SystemIn the event this information is protected by the Federal Confidentiality of Alcohol and Drug Abuse Patient Records regulations: The Federal rules restrict any use of the information to criminally investigate or prosecute any alcohol or drug abuse patient.[facility] SystemIn the event this information is protected by the Federal Confidentiality of Alcohol and Drug Abuse Patient Records regulations: The Federal rules restrict any use of the information to criminally investigate or prosecute any alcohol or drug abuse patient.[facility] SystemIn the event this information is protected by the Federal Confidentiality of Alcohol and Drug Abuse Patient Records regulations: The Federal rules restrict any use of the information to criminally investigate or prosecute any alcohol or drug abuse patient.[facility] SystemIn the event this information is protected by the Federal Confidentiality of Alcohol and Drug Abuse Patient Records regulations: The Federal rules restrict any use of the information to criminally investigate or prosecute any alcohol or drug abuse patient.[facility] SystemIn the event this information is protected by the Federal Confidentiality of Alcohol and Drug Abuse Patient Records regulations: The Federal rules restrict any use of the information to criminally investigate or prosecute any alcohol or drug abuse patient.[facility] SystemIn the event this information is protected by the Federal Confidentiality of Alcohol and Drug Abuse Patient Records regulations: The Federal rules restrict any use of the information to criminally investigate or prosecute any alcohol or drug abuse patient.[facility] SystemIn the event this information is protected by the Federal Confidentiality of Alcohol and Drug Abuse Patient Records regulations: The Federal rules restrict any use of the information to criminally investigate or prosecute any alcohol or drug abuse patient.[facility] SystemIn the event this information is protected by the Federal Confidentiality of Alcohol and Drug Abuse Patient Records regulations: The Federal rules restrict any use of the information to criminally investigate or prosecute any alcohol or drug abuse patient.[facility] SystemIn the event this information is protected by the Federal Confidentiality of Alcohol and Drug Abuse Patient Records regulations: The Federal rules restrict any use of the information to criminally investigate or prosecute any alcohol or drug abuse patient.[facility] SystemIn the event this information is protected by the Federal Confidentiality of Alcohol and Drug Abuse Patient Records regulations: The Federal rules restrict any use of the information to criminally investigate or prosecute any alcohol or drug abuse patient.[facility] SystemIn the event this information is protected by the Federal Confidentiality of Alcohol and Drug Abuse Patient Records regulations: The Federal rules restrict any use of the information to criminally investigate or prosecute any alcohol or drug abuse patient.[facility] SystemIn the event this information is protected by the Federal Confidentiality of Alcohol and Drug Abuse Patient Records regulations: The Federal rules restrict any use of the information to criminally investigate or prosecute any alcohol or drug abuse patient.[facility] SystemIn the event this information is protected by the Federal Confidentiality of Alcohol and Drug Abuse Patient Records regulations: The Federal rules restrict any use of the information to criminally investigate or prosecute any alcohol or drug abuse patient.[facility] the event this information is protected by the Federal Confidentiality of Alcohol and Drug Abuse Patient Records regulations: The Federal rules restrict any use of the information to criminally investigate or prosecute any alcohol or drug abuse patient.[facility]In the event this information is protected by the Federal Confidentiality of Alcohol and Drug Abuse Patient Records regulations: The Federal rules restrict any use of the information to criminally investigate or prosecute any alcohol or drug abuse patient.[facility]In the event this information is protected by the Federal Confidentiality of Alcohol and Drug Abuse Patient Records regulations: The Federal rules restrict any use of the information to criminally investigate or prosecute any alcohol or drug abuse patient.[facility]In the event this information is protected by the Federal Confidentiality of Alcohol and Drug Abuse Patient Records regulations: The Federal rules restrict any use of the information to criminally investigate or prosecute any alcohol or drug abuse patient.[facility]In the event this information is protected by the Federal Confidentiality of Alcohol and Drug Abuse Patient Records regulations: The Federal rules restrict any use of the information to criminally investigate or prosecute any alcohol or drug abuse patient.[facility]In the event this information is protected by the Federal Confidentiality of Alcohol and Drug Abuse Patient Records regulations: The Federal rules restrict any use of the information to criminally investigate or prosecute any alcohol or drug abuse patient.[facility]In the event this information is protected by the Federal Confidentiality of Alcohol and Drug Abuse Patient Records regulations: The Federal rules restrict any use of the information to criminally investigate or prosecute any alcohol or drug abuse patient.[facility]In the event this information is protected by the Federal Confidentiality of Alcohol and Drug Abuse Patient Records regulations: The Federal rules restrict any use of the information to criminally investigate or prosecute any alcohol or drug abuse patient.[facility]In the event this information is protected by the Federal Confidentiality of Alcohol and Drug Abuse Patient Records regulations: The Federal rules restrict any use of the information to criminally investigate or prosecute any alcohol or drug abuse patient.[facility]In the event this information is protected by the Federal Confidentiality of Alcohol and Drug Abuse Patient Records regulations: The Federal rules restrict any use of the information to criminally investigate or prosecute any alcohol or drug abuse patient.[facility]In the event this information is protected by the Federal Confidentiality of Alcohol and Drug Abuse Patient Records regulations: The Federal rules restrict any use of the information to criminally investigate or prosecute any alcohol or drug abuse patient.[facility]In the event this information is protected by the Federal Confidentiality of Alcohol and Drug Abuse Patient Records regulations: The Federal rules restrict any use of the information to criminally investigate or prosecute any alcohol or drug abuse patient.[facility]In the event this information is protected by the Federal Confidentiality of Alcohol and Drug Abuse Patient Records regulations: The Federal rules restrict any use of the information to criminally investigate or prosecute any alcohol or drug abuse patient.[facility]In the event this information is protected by the Federal Confidentiality of Alcohol and Drug Abuse Patient Records regulations: The Federal rules restrict any use of the information to criminally investigate or prosecute any alcohol or drug abuse patient.[facility]In the event this information is protected by the Federal Confidentiality of Alcohol and Drug Abuse Patient Records regulations: The Federal rules restrict any use of the information to criminally investigate or prosecute any alcohol or drug abuse patient.[facility]In the event this information is protected by the Federal Confidentiality of Alcohol and Drug Abuse Patient Records regulations: The Federal rules restrict any use of the information to criminally investigate or prosecute any alcohol or drug abuse patient.[facility]In the event this information is protected by the Federal Confidentiality of Alcohol and Drug Abuse Patient Records regulations: The Federal rules restrict any use of the information to criminally investigate or prosecute any alcohol or drug abuse patient.[facility]In the event this information is protected by the Federal Confidentiality of Alcohol and Drug Abuse Patient Records regulations: The Federal rules restrict any use of the information to criminally investigate or prosecute any alcohol or drug abuse patient.[facility]In the event this information is protected by the Federal Confidentiality of Alcohol and Drug Abuse Patient Records regulations: The Federal rules restrict any use of the information to criminally investigate or prosecute any alcohol or drug abuse patient.[facility]In the event this information is protected by the Federal Confidentiality of Alcohol and Drug Abuse Patient Records regulations: The Federal rules restrict any use of the information to criminally investigate or prosecute any alcohol or drug abuse patient.[facility]In the event this information is protected by the Federal Confidentiality of Alcohol and Drug Abuse Patient Records regulations: The Federal rules restrict any use of the information to criminally investigate or prosecute any alcohol or drug abuse patient.[facility]In the event this information is protected by the Federal Confidentiality of Alcohol and Drug Abuse Patient Records regulations: The Federal rules restrict any use of the information to criminally investigate or prosecute any alcohol or drug abuse patient.[facility]In the event this information is protected by the Federal Confidentiality of Alcohol and Drug Abuse Patient Records regulations: The Federal rules restrict any use of the information to criminally investigate or prosecute any alcohol or drug abuse patient.[facility]In the event this information is protected by the Federal Confidentiality of Alcohol and Drug Abuse Patient Records regulations: The Federal rules restrict any use of the information to criminally investigate or prosecute any alcohol or drug abuse patient.[facility]In the event this information is protected by the Federal Confidentiality of Alcohol and Drug Abuse Patient Records regulations: The Federal rules restrict any use of the information to criminally investigate or prosecute any alcohol or drug abuse patient.[facility]In the event this information is protected by the Federal Confidentiality of Alcohol and Drug Abuse Patient Records regulations: The Federal rules restrict any use of the information to criminally investigate or prosecute any alcohol or drug abuse patient.[facility]In the event this information is protected by the Federal Confidentiality of Alcohol and Drug Abuse Patient Records regulations: The Federal rules restrict any use of the information to criminally investigate or prosecute any alcohol or drug abuse patient.[facility]In the event this information is protected by the Federal Confidentiality of Alcohol and Drug Abuse Patient Records regulations: The Federal rules restrict any use of the information to criminally investigate or prosecute any alcohol or drug abuse patient.[facility]In the event this information is protected by the Federal Confidentiality of Alcohol and Drug Abuse Patient Records regulations: The Federal rules restrict any use of the information to criminally investigate or prosecute any alcohol or drug abuse patient.[facility]In the event this information is protected by the Federal Confidentiality of Alcohol and Drug Abuse Patient Records regulations: The Federal rules restrict any use of the information to criminally investigate or prosecute any alcohol or drug abuse patient.[facility]In the event this information is protected by the Federal Confidentiality of Alcohol and Drug Abuse Patient Records regulations: The Federal rules restrict any use of the information to criminally investigate or prosecute any alcohol or drug abuse patient.[facility]In the event this information is protected by the Federal Confidentiality of Alcohol and Drug Abuse Patient Records regulations: The Federal rules restrict any use of the information to criminally investigate or prosecute any alcohol or drug abuse patient.[facility]In the event this information is protected by the Federal Confidentiality of Alcohol and Drug Abuse Patient Records regulations: The Federal rules restrict any use of the information to criminally investigate or prosecute any alcohol or drug abuse patient.[facility]In the event this information is protected by the Federal Confidentiality of Alcohol and Drug Abuse Patient Records regulations: The Federal rules restrict any use of the information to criminally investigate or prosecute any alcohol or drug abuse patient.[facility]In the event this information is protected by the Federal Confidentiality of Alcohol and Drug Abuse Patient Records regulations: The Federal rules restrict any use of the information to criminally investigate or prosecute any alcohol or drug abuse patient.[facility]In the event this information is protected by the Federal Confidentiality of Alcohol and Drug Abuse Patient Records regulations: The Federal rules restrict any use of the information to criminally investigate or prosecute any alcohol or drug abuse patient.[facility]In the event this information is protected by the Federal Confidentiality of Alcohol and Drug Abuse Patient Records regulations: The Federal rules restrict any use of the information to criminally investigate or prosecute any alcohol or drug abuse patient.[facility]In the event this information is protected by the Federal Confidentiality of Alcohol and Drug Abuse Patient Records regulations: The Federal rules restrict any use of the information to criminally investigate or prosecute any alcohol or drug abuse patient.[facility]In the event this information is protected by the Federal Confidentiality of Alcohol and Drug Abuse Patient Records regulations: The Federal rules restrict any use of the information to criminally investigate or prosecute any alcohol or drug abuse patient.[facility]In the event this information is protected by the Federal Confidentiality of Alcohol and Drug Abuse Patient Records regulations: The Federal rules restrict any use of the information to criminally investigate or prosecute any alcohol or drug abuse patient.[facility]In the event this information is protected by the Federal Confidentiality of Alcohol and Drug Abuse Patient Records regulations: The Federal rules restrict any use of the information to criminally investigate or prosecute any alcohol or drug abuse patient.[facility]In the event this information is protected by the Federal Confidentiality of Alcohol and Drug Abuse Patient Records regulations: The Federal rules restrict any use of the information to criminally investigate or prosecute any alcohol or drug abuse patient.[facility]In the event this information is protected by the Federal Confidentiality of Alcohol and Drug Abuse Patient Records regulations: The Federal rules restrict any use of the information to criminally investigate or prosecute any alcohol or drug abuse patient.[facility]In the event this information is protected by the Federal Confidentiality of Alcohol and Drug Abuse Patient Records regulations: The Federal rules restrict any use of the information to criminally investigate or prosecute any alcohol or drug abuse patient.[facility]In the event this information is protected by the Federal Confidentiality of Alcohol and Drug Abuse Patient Records regulations: The Federal rules restrict any use of the information to criminally investigate or prosecute any alcohol or drug abuse patient.[facility]In the event this information is protected by the Federal Confidentiality of Alcohol and Drug Abuse Patient Records regulations: The Federal rules restrict any use of the information to criminally investigate or prosecute any alcohol or drug abuse patient.[facility]In the event this information is protected by the Federal Confidentiality of Alcohol and Drug Abuse Patient Records regulations: The Federal rules restrict any use of the information to criminally investigate or prosecute any alcohol or drug abuse patient.[facility]In the event this information is protected by the Federal Confidentiality of Alcohol and Drug Abuse Patient Records regulations: The Federal rules restrict any use of the information to criminally investigate or prosecute any alcohol or drug abuse patient.[facility]In the event this information is protected by the Federal Confidentiality of Alcohol and Drug Abuse Patient Records regulations: The Federal rules restrict any use of the information to criminally investigate or prosecute any alcohol or drug abuse patient.[facility]In the event this information is protected by the Federal Confidentiality of Alcohol and Drug Abuse Patient Records regulations: The Federal rules restrict any use of the information to criminally investigate or prosecute any alcohol or drug abuse patient.[facility]In the event this information is protected by the Federal Confidentiality of Alcohol and Drug Abuse Patient Records regulations: The Federal rules restrict any use of the information to criminally investigate or prosecute any alcohol or drug abuse patient.[facility]In the event this information is protected by the Federal Confidentiality of Alcohol and Drug Abuse Patient Records regulations: The Federal rules restrict any use of the information to criminally investigate or prosecute any alcohol or drug abuse patient.[facility]In the event this information is protected by the Federal Confidentiality of Alcohol and Drug Abuse Patient Records regulations: The Federal rules restrict any use of the information to criminally investigate or prosecute any alcohol or drug abuse patient.[facility]In the event this information is protected by the Federal Confidentiality of Alcohol and Drug Abuse Patient Records regulations: The Federal rules restrict any use of the information to criminally investigate or prosecute any alcohol or drug abuse patient.[facility]In the event this information is protected by the Federal Confidentiality of Alcohol and Drug Abuse Patient Records regulations: The Federal rules restrict any use of the information to criminally investigate or prosecute any alcohol or drug abuse patient.[facility]In the event this information is protected by the Federal Confidentiality of Alcohol and Drug Abuse Patient Records regulations: The Federal rules restrict any use of the information to criminally investigate or prosecute any alcohol or drug abuse patient.[facility]In the event this information is protected by the Federal Confidentiality of Alcohol and Drug Abuse Patient Records regulations: The Federal rules restrict any use of the information to criminally investigate or prosecute any alcohol or drug abuse patient.[facility]In the event this information is protected by the Federal Confidentiality of Alcohol and Drug Abuse Patient Records regulations: The Federal rules restrict any use of the information to criminally investigate or prosecute any alcohol or drug abuse patient.[facility]In the event this information is protected by the Federal Confidentiality of Alcohol and Drug Abuse Patient Records regulations: The Federal rules restrict any use of the information to criminally investigate or prosecute any alcohol or drug abuse patient.[facility]In the event this information is protected by the Federal Confidentiality of Alcohol and Drug Abuse Patient Records regulations: The Federal rules restrict any use of the information to criminally investigate or prosecute any alcohol or drug abuse patient.[facility]In the event this information is protected by the Federal Confidentiality of Alcohol and Drug Abuse Patient Records regulations: The Federal rules restrict any use of the information to criminally investigate or prosecute any alcohol or drug abuse patient.[facility]In the event this information is protected by the Federal Confidentiality of Alcohol and Drug Abuse Patient Records regulations: The Federal rules restrict any use of the information to criminally investigate or prosecute any alcohol or drug abuse patient.[facility]In the event this information is protected by the Federal Confidentiality of Alcohol and Drug Abuse Patient Records regulations: The Federal rules restrict any use of the information to criminally investigate or prosecute any alcohol or drug abuse patient.[facility]In the event this information is protected by the Federal Confidentiality of Alcohol and Drug Abuse Patient Records regulations: The Federal rules restrict any use of the information to criminally investigate or prosecute any alcohol or drug abuse patient.[facility]In the event this information is protected by the Federal Confidentiality of Alcohol and Drug Abuse Patient Records regulations: The Federal rules restrict any use of the information to criminally investigate or prosecute any alcohol or drug abuse patient.[facility]In the event this information is protected by the Federal Confidentiality of Alcohol and Drug Abuse Patient Records regulations: The Federal rules restrict any use of the information to criminally investigate or prosecute any alcohol or drug abuse patient.[facility]In the event this information is protected by the Federal Confidentiality of Alcohol and Drug Abuse Patient Records regulations: The Federal rules restrict any use of the information to criminally investigate or prosecute any alcohol or drug abuse patient.[facility]In the event this information is protected by the Federal Confidentiality of Alcohol and Drug Abuse Patient Records regulations: The Federal rules restrict any use of the information to criminally investigate or prosecute any alcohol or drug abuse patient.[facility]In the event this information is protected by the Federal Confidentiality of Alcohol and Drug Abuse Patient Records regulations: The Federal rules restrict any use of the information to criminally investigate or prosecute any alcohol or drug abuse patient.[facility]In the event this information is protected by the Federal Confidentiality of Alcohol and Drug Abuse Patient Records regulations: The Federal rules restrict any use of the information to criminally investigate or prosecute any alcohol or drug abuse patient.[facility]In the event this information is protected by the Federal Confidentiality of Alcohol and Drug Abuse Patient Records regulations: The Federal rules restrict any use of the information to criminally investigate or prosecute any alcohol or drug abuse patient.[facility]In the event this information is protected by the Federal Confidentiality of Alcohol and Drug Abuse Patient Records regulations: The Federal rules restrict any use of the information to criminally investigate or prosecute any alcohol or drug abuse patient.[facility]In the event this information is protected by the Federal Confidentiality of Alcohol and Drug Abuse Patient Records regulations: The Federal rules restrict any use of the information to criminally investigate or prosecute any alcohol or drug abuse patient.[facility]In the event this information is protected by the Federal Confidentiality of Alcohol and Drug Abuse Patient Records regulations: The Federal rules restrict any use of the information to criminally investigate or prosecute any alcohol or drug abuse patient.[facility]In the event this information is protected by the Federal Confidentiality of Alcohol and Drug Abuse Patient Records regulations: The Federal rules restrict any use of the information to criminally investigate or prosecute any alcohol or drug abuse patient.[facility]In the event this information is protected by the Federal Confidentiality of Alcohol and Drug Abuse Patient Records regulations: The Federal rules restrict any use of the information to criminally investigate or prosecute any alcohol or drug abuse patient.[facility]In the event this information is protected by the Federal Confidentiality of Alcohol and Drug Abuse Patient Records regulations: The Federal rules restrict any use of the information to criminally investigate or prosecute any alcohol or drug abuse patient.[facility]In the event this information is protected by the Federal Confidentiality of Alcohol and Drug Abuse Patient Records regulations: The Federal rules restrict any use of the information to criminally investigate or prosecute any alcohol or drug abuse patient.[facility]In the event this information is protected by the Federal Confidentiality of Alcohol and Drug Abuse Patient Records regulations: The Federal rules restrict any use of the information to criminally investigate or prosecute any alcohol or drug abuse patient.[facility]In the event this information is protected by the Federal Confidentiality of Alcohol and Drug Abuse Patient Records regulations: The Federal rules restrict any use of the information to criminally investigate or prosecute any alcohol or drug abuse patient.[facility]In the event this information is protected by the Federal Confidentiality of Alcohol and Drug Abuse Patient Records regulations: The Federal rules restrict any use of the information to criminally investigate or prosecute any alcohol or drug abuse patient.[facility]In the event this information is protected by the Federal Confidentiality of Alcohol and Drug Abuse Patient Records regulations: The Federal rules restrict any use of the information to criminally investigate or prosecute any alcohol or drug abuse patient.[facility]In the event this information is protected by the Federal Confidentiality of Alcohol and Drug Abuse Patient Records regulations: The Federal rules restrict any use of the information to criminally investigate or prosecute any alcohol or drug abuse patient.[facility]In the event this information is protected by the Federal Confidentiality of Alcohol and Drug Abuse Patient Records regulations: The Federal rules restrict any use of the information to criminally investigate or prosecute any alcohol or drug abuse patient.[facility]In the event this information is protected by the Federal Confidentiality of Alcohol and Drug Abuse Patient Records regulations: The Federal rules restrict any use of the information to criminally investigate or prosecute any alcohol or drug abuse patient.[facility] SystemIn the event this information is protected by the Federal Confidentiality of Alcohol and Drug Abuse Patient Records regulations: The Federal rules restrict any use of the information to criminally investigate or prosecute any alcohol or drug abuse patient.[facility] SystemIn the event this information is protected by the Federal Confidentiality of Alcohol and Drug Abuse Patient Records regulations: The Federal rules restrict any use of the information to criminally investigate or prosecute any alcohol or drug abuse patient.[facility] SystemIn the event this information is protected by the Federal Confidentiality of Alcohol and Drug Abuse Patient Records regulations: The Federal rules restrict any use of the information to criminally investigate or prosecute any alcohol or drug abuse patient.[facility] SystemIn the event this information is protected by the Federal Confidentiality of Alcohol and Drug Abuse Patient Records regulations: The Federal rules restrict any use of the information to criminally investigate or prosecute any alcohol or drug abuse patient.[facility] SystemIn the event this information is protected by the Federal Confidentiality of Alcohol and Drug Abuse Patient Records regulations: The Federal rules restrict any use of the information to criminally investigate or prosecute any alcohol or drug abuse patient.[facility] SystemIn the event this information is protected by the Federal Confidentiality of Alcohol and Drug Abuse Patient Records regulations: The Federal rules restrict any use of the information to criminally investigate or prosecute any alcohol or drug abuse patient.[facility] SystemIn the event this information is protected by the Federal Confidentiality of Alcohol and Drug Abuse Patient Records regulations: The Federal rules restrict any use of the information to criminally investigate or prosecute any alcohol or drug abuse patient.[facility] SystemIn the event this information is protected by the Federal Confidentiality of Alcohol and Drug Abuse Patient Records regulations: The Federal rules restrict any use of the information to criminally investigate or prosecute any alcohol or drug abuse patient.[facility] SystemIn the event this information is protected by the Federal Confidentiality of Alcohol and Drug Abuse Patient Records regulations: The Federal rules restrict any use of the information to criminally investigate or prosecute any alcohol or drug abuse patient.[facility] SystemIn the event this information is protected by the Federal Confidentiality of Alcohol and Drug Abuse Patient Records regulations: The Federal rules restrict any use of the information to criminally investigate or prosecute any alcohol or drug abuse patient.[facility] SystemIn the event this information is protected by the Federal Confidentiality of Alcohol and Drug Abuse Patient Records regulations: The Federal rules restrict any use of the information to criminally investigate or prosecute any alcohol or drug abuse patient.[facility] SystemIn the event this information is protected by the Federal Confidentiality of Alcohol and Drug Abuse Patient Records regulations: The Federal rules restrict any use of the information to criminally investigate or prosecute any alcohol or drug abuse patient.[facility] SystemIn the event this information is protected by the Federal Confidentiality of Alcohol and Drug Abuse Patient Records regulations: The Federal rules restrict any use of the information to criminally investigate or prosecute any alcohol or drug abuse patient.[facility] SystemIn the event this information is protected by the Federal Confidentiality of Alcohol and Drug Abuse Patient Records regulations: The Federal rules restrict any use of the information to criminally investigate or prosecute any alcohol or drug abuse patient.[facility] SystemIn the event this information is protected by the Federal Confidentiality of Alcohol and Drug Abuse Patient Records regulations: The Federal rules restrict any use of the information to criminally investigate or prosecute any alcohol or drug abuse patient.[facility] SystemIn the event this information is protected by the Federal Confidentiality of Alcohol and Drug Abuse Patient Records regulations: The Federal rules restrict any use of the information to criminally investigate or prosecute any alcohol or drug abuse patient.[facility] SystemIn the event this information is protected by the Federal Confidentiality of Alcohol and Drug Abuse Patient Records regulations: The Federal rules restrict any use of the information to criminally investigate or prosecute any alcohol or drug abuse patient.[facility] SystemIn the event this information is protected by the Federal Confidentiality of Alcohol and Drug Abuse Patient Records regulations: The Federal rules restrict any use of the information to criminally investigate or prosecute any alcohol or drug abuse patient.[facility] SystemIn the event this information is protected by the Federal Confidentiality of Alcohol and Drug Abuse Patient Records regulations: The Federal rules restrict any use of the information to criminally investigate or prosecute any alcohol or drug abuse patient.[facility] SystemIn the event this information is protected by the Federal Confidentiality of Alcohol and Drug Abuse Patient Records regulations: The Federal rules restrict any use of the information to criminally investigate or prosecute any alcohol or drug abuse patient.[facility] SystemIn the event this information is protected by the Federal Confidentiality of Alcohol and Drug Abuse Patient Records regulations: The Federal rules restrict any use of the information to criminally investigate or prosecute any alcohol or drug abuse patient.[facility] SystemIn the event this information is protected by the Federal Confidentiality of Alcohol and Drug Abuse Patient Records regulations: The Federal rules restrict any use of the information to criminally investigate or prosecute any alcohol or drug abuse patient.[facility] SystemIn the event this information is protected by the Federal Confidentiality of Alcohol and Drug Abuse Patient Records regulations: The Federal rules restrict any use of the information to criminally investigate or prosecute any alcohol or drug abuse patient.[facility] SystemIn the event this information is protected by the Federal Confidentiality of Alcohol and Drug Abuse Patient Records regulations: The Federal rules restrict any use of the information to criminally investigate or prosecute any alcohol or drug abuse patient.[facility] SystemIn the event this information is protected by the Federal Confidentiality of Alcohol and Drug Abuse Patient Records regulations: The Federal rules restrict any use of the information to criminally investigate or prosecute any alcohol or drug abuse patient.[facility] SystemIn the event this information is protected by the Federal Confidentiality of Alcohol and Drug Abuse Patient Records regulations: The Federal rules restrict any use of the information to criminally investigate or prosecute any alcohol or drug abuse patient.[facility] SystemIn the event this information is protected by the Federal Confidentiality of Alcohol and Drug Abuse Patient Records regulations: The Federal rules restrict any use of the information to criminally investigate or prosecute any alcohol or drug abuse patient.[facility] SystemIn the event this information is protected by the Federal Confidentiality of Alcohol and Drug Abuse Patient Records regulations: The Federal rules restrict any use of the information to criminally investigate or prosecute any alcohol or drug abuse patient.[facility] SystemIn the event this information is protected by the Federal Confidentiality of Alcohol and Drug Abuse Patient Records regulations: The Federal rules restrict any use of the information to criminally investigate or prosecute any alcohol or drug abuse patient.[facility] SystemIn the event this information is protected by the Federal Confidentiality of Alcohol and Drug Abuse Patient Records regulations: The Federal rules restrict any use of the information to criminally investigate or prosecute any alcohol or drug abuse patient.[facility] SystemIn the event this information is protected by the Federal Confidentiality of Alcohol and Drug Abuse Patient Records regulations: The Federal rules restrict any use of the information to criminally investigate or prosecute any alcohol or drug abuse patient.[facility] SystemIn the event this information is protected by the Federal Confidentiality of Alcohol and Drug Abuse Patient Records regulations: The Federal rules restrict any use of the information to criminally investigate or prosecute any alcohol or drug abuse patient.[facility] SystemIn the event this information is protected by the Federal Confidentiality of Alcohol and Drug Abuse Patient Records regulations: The Federal rules restrict any use of the information to criminally investigate or prosecute any alcohol or drug abuse patient.[facility] SystemIn the event this information is protected by the Federal Confidentiality of Alcohol and Drug Abuse Patient Records regulations: The Federal rules restrict any use of the information to criminally investigate or prosecute any alcohol or drug abuse patient.[facility] SystemIn the event this information is protected by the Federal Confidentiality of Alcohol and Drug Abuse Patient Records regulations: The Federal rules restrict any use of the information to criminally investigate or prosecute any alcohol or drug abuse patient.[facility] SystemIn the event this information is protected by the Federal Confidentiality of Alcohol and Drug Abuse Patient Records regulations: The Federal rules restrict any use of the information to criminally investigate or prosecute any alcohol or drug abuse patient.[facility] SystemIn the event this information is protected by the Federal Confidentiality of Alcohol and Drug Abuse Patient Records regulations: The Federal rules restrict any use of the information to criminally investigate or prosecute any alcohol or drug abuse patient.[facility] SystemIn the event this information is protected by the Federal Confidentiality of Alcohol and Drug Abuse Patient Records regulations: The Federal rules restrict any use of the information to criminally investigate or prosecute any alcohol or drug abuse patient.[facility] SystemIn the event this information is protected by the Federal Confidentiality of Alcohol and Drug Abuse Patient Records regulations: The Federal rules restrict any use of the information to criminally investigate or prosecute any alcohol or drug abuse patient.[facility] SystemIn the event this information is protected by the Federal Confidentiality of Alcohol and Drug Abuse Patient Records regulations: The Federal rules restrict any use of the information to criminally investigate or prosecute any alcohol or drug abuse patient.[facility] SystemIn the event this information is protected by the Federal Confidentiality of Alcohol and Drug Abuse Patient Records regulations: The Federal rules restrict any use of the information to criminally investigate or prosecute any alcohol or drug abuse patient.[facility] SystemIn the event this information is protected by the Federal Confidentiality of Alcohol and Drug Abuse Patient Records regulations: The Federal rules restrict any use of the information to criminally investigate or prosecute any alcohol or drug abuse patient.[facility] SystemIn the event this information is protected by the Federal Confidentiality of Alcohol and Drug Abuse Patient Records regulations: The Federal rules restrict any use of the information to criminally investigate or prosecute any alcohol or drug abuse patient.[facility] SystemIn the event this information is protected by the Federal Confidentiality of Alcohol and Drug Abuse Patient Records regulations: The Federal rules restrict any use of the information to criminally investigate or prosecute any alcohol or drug abuse patient.[facility] SystemIn the event this information is protected by the Federal Confidentiality of Alcohol and Drug Abuse Patient Records regulations: The Federal rules restrict any use of the information to criminally investigate or prosecute any alcohol or drug abuse patient.[facility] SystemIn the event this information is protected by the Federal Confidentiality of Alcohol and Drug Abuse Patient Records regulations: The Federal rules restrict any use of the information to criminally investigate or prosecute any alcohol or drug abuse patient.[facility] SystemIn the event this information is protected by the Federal Confidentiality of Alcohol and Drug Abuse Patient Records regulations: The Federal rules restrict any use of the information to criminally investigate or prosecute any alcohol or drug abuse patient.[facility] SystemIn the event this information is protected by the Federal Confidentiality of Alcohol and Drug Abuse Patient Records regulations: The Federal rules restrict any use of the information to criminally investigate or prosecute any alcohol or drug abuse patient.[facility] Care Teams (unrecognized sec tion and content) Psychiatric Attendant Relationship Specialty Start Date End Date Gallo Sanches DO [address] [place], [place] [address] PCP - General Family Practice 12/12/15 Janet Edwards [address] [place] [address] [id number] Railways Assistant Obstetrics 07/15/17 Psychiatric Attendant Relationship Specialty Start Date End Date Gallo Sanches DO [address] [place], [place] [address] PCP - General Family Practice 12/12/15 [facility], Janet Culvere [address] [place] [address] [employer] Assistant Obstetrics 07/15/17 Psychiatric Attendant Relationship Specialty Start Date End Date Gallo Sanches, DO [address] [place] [address] PCP - General Family Practice 12/12/15 [facility] [address] [place] [address] [employer] Assistant Obstetrics 07/15/17 Psychiatric Attendant Relationship Specialty Start Date End Date Gallo Sanches, DO [address] [place] [address] PCP - General Family Practice 12/12/15 [facility] Janet Michelle [address] [place] [address] [employer] Assistant Obstetrics 07/15/17 Psychiatric Attendant Relationship Specialty Start Date End Date Gallo Sanches, DO [address] [facility] [place] [address] PCP - General Family Practice 12/12/15 [facility] Janet Culvere [address] [place] [address] [employer] Assistant Obstetrics 07/15/17 Psychiatric Attendant Relationship Specialty Start Date End Date Gallo Sanches, DO [address] [place] [address] PCP - General Family Practice 12/12/15 [facility] [address] [place] [address] [employer] Assistant Obstetrics 07/15/17 Psychiatric Attendant Relationship Specialty Start Date End Date Gallo Sanches, DO [address] [place] [address] PCP - General Family Practice 12/12/15 [facility] Janet Martinez [address] [address] [place] [address] [employer] Assistant Obstetrics 07/15/17 Psychiatric Attendant Relationship Specialty Start Date End Date Gallo Sanches, DO [address] [place] [address] PCP - General Family Practice 12/12/15 [facility], Janet Martinez [address] [address] [place] [address] [employer] Assistant Obstetrics 07/15/17 Psychiatric Attendant Relationship Specialty Start Date End Date Gallo Sanches, DO [address] [place] [address] PCP - General Family Practice 12/12/15 [facility] Martinez [address] [address] [place] [address] [employer] Assistant Obstetrics 07/15/17 Psychiatric Attendant Relationship Specialty Start Date End Date Gallo Sanches, DO [address] [place] [address] PCP - General Family Practice 12/12/15 [facility], Janet Culvere [address] [place] [address] [employer] Assistant Obstetrics 07/15/17 Psychiatric Attendant Relationship Specialty Start Date End Date Gallo Sanches, DO [address] [place] [address] PCP - General Family Practice 12/12/15 [facility] Janet Michelle [address] [place] [address] [employer] Assistant Obstetrics 07/15/17 Psychiatric Attendant Relationship Specialty Start Date End Date Gallo Sanches, DO [address] [place] [address] PCP - General Family Practice 12/12/[address] [place] [address] [employer] Assistant Obstetrics 07/15/17 Psychiatric Attendant Relationship Specialty Start Date End Date Gallo Sanches, DO [address] [place] [address] PCP - General Family Practice 12/12/15 [facility] [address] [place] [address] [employer] Assistant Obstetrics 07/15/17 Psychiatric Attendant Relationship Specialty Start Date End Date Gallo Sanches, DO [address] [place] [address] PCP - General Family Practice 12/12/[address] [place] [address] [employer] Assistant Obstetrics 07/15/17 Psychiatric Attendant Relationship Specialty Start Date End Date Gallo Sanches, DO [address] [place] [address] PCP - General Family Practice 12/12/15 [facility] [address] [place] [address] [employer] Assistant Obstetrics 07/15/17 Psychiatric Attendant Relationship Specialty Start Date End Date Gallo Sanches, DO [address] [place] [address] PCP - General Family Practice 12/12/15 [facility], Janet Culvere [address] [place] [address] [employer] Assistant Obstetrics 07/15/17 Psychiatric Attendant Relationship Specialty Start Date End Date Gallo Sanches, DO [address] [place] [address] PCP - General Family Practice 12/12/15 [facility] [address] [place] [address] [employer] Assistant Obstetrics 07/15/17 Psychiatric Attendant Relationship Specialty Start Date End Date Gallo Sanches, DO [address] [place] [address] PCP - General Family Practice 12/12/15 [facility] [address] [place] [address] [employer] Assistant Obstetrics 07/15/17 Psychiatric Attendant Relationship Specialty Start Date End Date Gallo Sanches, DO [address] [place] [address] PCP - General Family Practice 12/12/15 [facility] [address] [place] [address] [employer] Assistant Obstetrics 07/15/17 Psychiatric Attendant Relationship Specialty Start Date End Date Gallo Sanches, DO [address] [place] [address] PCP - General Family Practice 12/12/15 [facility] [address] [place] [address] [employer] Assistant Obstetrics 07/15/17 Psychiatric Attendant Relationship Specialty Start Date End Date Gallo Sanches, DO [address] [place] [address] PCP - General Family Practice 12/12/15 CherellefreddieJanet [address] [place] [address] [employer] Assistant Obstetrics 07/15/17 Psychiatric Attendant Relationship Specialty Start Date End Date Gallo Sanches, DO [address] [place] [address] PCP - General Family Practice 12/12/15 Jerry Janet Martinez [address] [place] [address] [employer] Assistant Obstetrics 07/15/17 Psychiatric Attendant Relationship Specialty Start Date End Date Gallo Sanches, DO [address] [place] [address] PCP - General Family Medicine 12/12/15 Cherellefreddie Janet Martinez [address] [place] [address] [employer] Assistant Obstetrics 07/15/17 Psychiatric Attendant Relationship Specialty Start Date End Date Gallo Sanches, DO [address] [place] [address] PCP - General Family Medicine 12/12/15 Cherelle Janet Martinez [address] [place] [address] [employer] Assistant Obstetrics 07/15/17 Psychiatric Attendant Relationship Specialty Start Date End Date Gallo Sanches, DO [address] [place] [address] PCP - General Family Medicine 12/12/15 Cherelle Janet Culver[address] [place] [address] [employer] Assistant Obstetrics 07/15/17 Psychiatric Attendant Relationship Specialty Start Date End Date Gallo Sanches, DO [address] [place] [address] PCP - General Family Medicine 12/12/[address] [place] [address] [employer] Assistant Obstetrics 07/15/17 Psychiatric Attendant Relationship Specialty Start Date End Date Gallo Sanches, DO [address] [place] [address] PCP - General Family Medicine 12/12/[address] [place] [address] [employer] Assistant Obstetrics 07/15/17 Psychiatric Attendant Relationship Specialty Start Date End Date Gallo Sanches, DO [address] [place] [address] PCP - General Family Medicine 12/12/[address] [place] [address] [employer] Assistant Obstetrics 07/15/17 Psychiatric Attendant Relationship Specialty Start Date End Date Gallo Sanches, DO [address] [place] [address] PCP - General Family Medicine 12/12/[address] [place] [address] [employer] Assistant Obstetrics 07/15/17 Psychiatric Attendant Relationship Specialty Start Date End Date Gallo Sanches, DO [address] [place] [address] PCP - General Family Medicine 12/12/15 [facility] [address] [address] [place] [address] [employer] Assistant Obstetrics 07/15/17 Psychiatric Attendant Relationship Specialty Start Date End Date Gallo Sanches, DO [address] [place] [address] PCP - General Family Medicine 12/12/15 [facility] [address] [place] [address] [employer] Assistant Obstetrics 07/15/17 Psychiatric Attendant Relationship Specialty Start Date End Date Gallo Sanches, DO [address] [place] [address] PCP - General Family Medicine 12/12/15 [facility] [address] [place] [address] [employer] Assistant Obstetrics 07/15/17 Psychiatric Attendant Relationship Specialty Start Date End Date Gallo Sanches, DO [address] [place] [address] PCP - General Family Medicine 12/12/15 [facility] [address] [place] [address] [employer] Assistant Obstetrics 07/15/17 Psychiatric Attendant Relationship Specialty Start Date End Date Gallo Sanches, DO [address] [place] [address] PCP - General Family Medicine 12/12/15 [facility] [address] [place] [address] [employer] Assistant Obstetrics 07/15/17 Psychiatric Attendant Relationship Specialty Start Date End Date Gallo Sanches, DO [address] [place] [address] PCP - General Family Medicine 12/12/15 CheerllefreddieJanet [address] [place] [address] [employer] Assistant Obstetrics 07/15/17 Psychiatric Attendant Relationship Specialty Start Date End Date Gallo Sanches, DO [address] [place] [address] PCP - General Family Medicine 12/12/15 [facility] Janet Martinez [address] [place] [address] [employer] Assistant Obstetrics 07/15/17 Psychiatric Attendant Relationship Specialty Start Date End Date Gallo Sanches, DO [address] [facility] [place] [place] [address] PCP - General Family Medicine 12/12/15 [facility] Janet Martinez [address] [place] [address], [place] [address] [employer] Assistant Obstetrics 07/15/17 Psychiatric Attendant Relationship Specialty Start Date End Date Gallo Sanches, DO [address] [facility] [place] [address] PCP - General Family Medicine 12/12/15 [facility] Janet Culver[address] [place] [address] [employer] Assistant Obstetrics 07/15/17 Psychiatric Attendant Relationship Specialty Start Date End Date Gallo Sanches, DO [address] [place] [address] PCP - General Family Medicine 12/12/15 [facility] Janet [address] [place] [address] Railways Assistant Obstetrics 07/15/17 Psychiatric Attendant Relationship Specialty Start Date End Date Gallo Sanches, DO [address] [place] [address] PCP - General Family Medicine 12/12/15 [facility] [address] [place] [address] Railways Assistant Obstetrics 07/15/17 Psychiatric Attendant Relationship Specialty Start Date End Date Gallo Sanches, DO [address] [place] [address] PCP - General Family Medicine 12/12/[address] [place] [address] Railways Assistant Obstetrics 07/15/17 Psychiatric Attendant Relationship Specialty Start Date End Date Gallo Sanches, DO [address] [place] [address] PCP - General Family Medicine 12/12/15 [facility] [address] [place] [address] Railways Assistant Obstetrics 07/15/17 Psychiatric Attendant Relationship Specialty Start Date End Date Gallo Sanches, DO [address] [place] [address] PCP - General Family Medicine 12/12/15 [facility] [address] [place] [address] Railways Assistant Obstetrics 07/15/17 Psychiatric Attendant Relationship Specialty Start Date End Date Gallo Sanches, DO [address] [place] [address] PCP - General Family Medicine 12/12/15 [facility] [address] [address] [place] [address] Railways Assistant Obstetrics 07/15/17 Psychiatric Attendant Relationship Specialty Start Date End Date Gallo Sanches, DO [address] [facility] [place] [address] PCP - General Family Medicine 12/12/15 [facility] Michelle [address] [address] [place] [address] Railways Assistant Obstetrics 07/15/17 Psychiatric Attendant Relationship Specialty Start Date End Date Gallo Sanches, DO [address] [facility] [place] [address] PCP - General Family Medicine 12/12/15 [facility] Michelle [address] [address] [place] [address] Railways Assistant Obstetrics 07/15/17 Psychiatric Attendant Relationship Specialty Start Date End Date Gallo Sanches, DO [address] [facility] [place] [address] PCP - General Family Medicine 12/12/15 [facility] [address] [place] [address] Railways Assistant Obstetrics 07/15/17 Psychiatric Attendant Relationship Specialty Start Date End Date Gallo Sanches, DO [address] [facility] [place] [address] PCP - General Family Medicine 12/12/15 [facility] [address] [address] [place] [address] Railways Assistant Obstetrics 07/15/17 Psychiatric Attendant Relationship Specialty Start Date End Date Gallo Sanches, DO [address] [facility] [place] [address] PCP - General Family Medicine 12/12/15 Janet Edwards [address] [place] [address] Railways Assistant Obstetrics 07/15/17 Psychiatric Attendant Relationship Specialty Start Date End Date Gallo Sanches, DO [address] [facility] [place] [address] PCP - General Family Medicine 12/12/15 CherellefreddieJanet [address] [place] [address] Railways Assistant Obstetrics 07/15/17 Psychiatric Attendant Relationship Specialty Start Date End Date Gallo Sanches, DO [address] [facility] [place] [place] [address] PCP - General Family Medicine 12/12/15 Janet Edwards [address] [place] [address], [place] [address] Railways Assistant Obstetrics 07/15/17 Psychiatric Attendant Relationship Specialty Start Date End Date Gallo Sanches, DO [address] [facility] [place] [address] PCP - General Family Medicine 12/12/15 CherelleJanet [address] [place] [address] Railways Assistant Obstetrics 07/15/17 Psychiatric Attendant Relationship Specialty Start Date End Date Gallo Sanches, DO [address] [place] [address] PCP - General Family Medicine 12/12/15 [facility] Janet Culvere [address] [place] [address] Railways Assistant Obstetrics 07/15/17 Psychiatric Attendant Relationship Specialty Start Date End Date Gallo Sanches DO [address] [place] [address] PCP - General Family Medicine 12/12/15 Janet Edwards [address] [address] Railways Assistant Obstetrics 07/15/17 Psychiatric Attendant Relationship Specialty Start Date End Date Gallo Sanches DO [address] [place] [address] PCP - General Family Medicine 12/12/15 Janet Edwards [address] [address] Railways Assistant Obstetrics 07/15/17 Psychiatric Attendant Relationship Specialty Start Date End Date Gallo Sanches DO [address] [place] [address] PCP - General Family Medicine 12/12/15 Janet Edawrds [address] [address] Railways Assistant Obstetrics 07/15/17 Psychiatric Attendant Relationship Specialty Start Date End Date Gallo Sanches DO [address] [place] [address] PCP - General Family Medicine 12/12/15 Janet Edwards [address] [address] Railways Assistant Obstetrics 07/15/17 Psychiatric Attendant Relationship Specialty Start Date End Date Gallo Sanches DO [address] [facility] [place] [address] PCP - General Family Medicine 12/12/15 Janet Edwards [address] [address] Railways Assistant Obstetrics 07/15/17 Psychiatric Attendant Relationship Specialty Start Date End Date Gallo Sanches DO [address] [facility] [place] [address] PCP - General Family Medicine 12/12/15 Janet Edwards [address] [address] Railways Assistant Obstetrics 07/15/17 Psychiatric Attendant Relationship Specialty Start Date End Date Gallo Sanches DO [address] [facility] [place] [address] PCP - General Family Medicine 12/12/15 Janet Edwards [address] [address] Railways Assistant Obstetrics 07/15/17 Psychiatric Attendant Relationship Specialty Start Date End Date Gallo Sanches DO [address] [facility] [place] [address] PCP - General Family Medicine 12/12/15 Janet Edwards [address] [place] [address] Railways Assistant Obstetrics 07/15/17 Psychiatric Attendant Relationship Specialty Start Date End Date Gallo Sanches DO [address] [place] [address] PCP - General Family Medicine 12/12/15 Janet Edwards [address] [address] Railways Assistant Obstetrics 07/15/17 Psychiatric Attendant Relationship Specialty Start Date End Date Gallo Sanches DO [address] [place] [address] PCP - General Family Medicine 12/12/15 Janet Edwards [address] [phone] Railways Assistant Obstetrics 07/15/17 Psychiatric Attendant Relationship Specialty Start Date End Date Gallo Sanches DO [address] [place] [address] PCP - General Family Medicine 12/12/15 Janet Edwards [address] [phone] Railways Assistant Obstetrics 07/15/17 Psychiatric Attendant Relationship Specialty Start Date End Date Gallo Sanches DO [address] [place] [address] PCP - General Family Medicine 12/12/15 Janet Edwards [address] [phone] Railways Assistant Obstetrics 07/15/17 Psychiatric Attendant Relationship Specialty Start Date End Date Gallo Sanches DO [address] [place] [address] PCP - General Family Medicine 12/12/15 Janet Edwards [address] [phone] Railways Assistant Obstetrics 07/15/17 Psychiatric Attendant Relationship Specialty Start Date End Date Gallo Sanchse DO [address] [place] [address] PCP - General Family Medicine 12/12/15 Janet Edwards [address] [phone] Railways Assistant Obstetrics 07/15/17 Psychiatric Attendant Relationship Specialty Start Date End Date Gallo Sanches DO [address] [place] [address] PCP - General Family Medicine 12/12/15 Janet Edwards [address] [address] Railways Assistant Obstetrics 07/15/17 Psychiatric Attendant Relationship Specialty Start Date End Date Gallo Sanches DO [address] [place] [address] PCP - General Family Medicine 12/12/15 Janet Edwards [address] [phone] Railways Assistant Obstetrics 07/15/17 Psychiatric Attendant Relationship Specialty Start Date End Date Gallo Sanches DO [address] [place] [address] PCP - General Family Medicine 12/12/15 Janet Edwards [address] [address] Railways Assistant Obstetrics 07/15/17 Psychiatric Attendant Relationship Specialty Start Date End Date Gallo Sanches DO [address] [place] [address] PCP - General Family Medicine 12/12/15 Janet Edwards [address] [address] Railways Assistant Obstetrics 07/15/17 Psychiatric Attendant Relationship Specialty Start Date End Date Gallo Sanches DO [address] [place] [address] PCP - General Family Medicine 12/12/15 Janet Edwards [address] [phone] Railways Assistant Obstetrics 07/15/17 Psychiatric Attendant Relationship Specialty Start Date End Date Gallo Sanches DO [address] [place] [address] PCP - General Family Medicine 12/12/15 Janet Edwards [address] [address] Railways Assistant Obstetrics 07/15/17 Psychiatric Attendant Relationship Specialty Start Date End Date Gallo Sanches [address] [place] [address] PCP - General 04/15/19 Psychiatric Attendant Relationship Specialty Start Date End Date Gallo Sanches DO [address] [facility] [place] [address] PCP - General Family Medicine 12/12/15 Janet Edwards [address] [address] Railways Assistant Obstetrics 07/15/17 Psychiatric Attendant Relationship Specialty Start Date End Date Gallo Sanches DO [address] [facility] [place] [address] PCP - General Family Medicine 12/12/15 Janet Edwards [address] [address] Railways Assistant Obstetrics 07/15/17 Psychiatric Attendant Relationship Specialty Start Date End Date Gallo Sanches [address] [facility] [place] [address] PCP - General 04/15/19 Psychiatric Attendant Relationship Specialty Start Date End Date Gallo Sanches DO [address] [facility] [place] [address] PCP - General Family Medicine 12/12/15 Janet Edwards [address] [place] [address] Railways Assistant Obstetrics 07/15/17 Psychiatric Attendant Relationship Specialty Start Date End Date Gallo Sanches DO [address] [facility] [place] [address] PCP - General Family Medicine 12/12/15 Janet Edwards [address] [place] [address] Railways Assistant Obstetrics 07/15/17 Psychiatric Attendant Relationship Specialty Start Date End Date Gallo Sanches DO [address] [place] [address] PCP - General Family Medicine 12/12/15 Janet Edwards [address] [address] Railways Assistant Obstetrics 07/15/17 Psychiatric Attendant Relationship Specialty Start Date End Date Gallo Sanches DO [address] [place] [address] PCP - General Family Medicine 12/12/15 Janet Edwards [address] [address] Railways Assistant Obstetrics 07/15/17 Psychiatric Attendant Relationship Specialty Start Date End Date Gallo Sanches DO [address] [place] [address] PCP - General Family Medicine 12/12/15 Janet Edwards [address] [address] Railways Assistant Obstetrics 07/15/17 Psychiatric Attendant Relationship Specialty Start Date End Date Gallo Sanches DO [address] [place] [address] PCP - General Family Medicine 12/12/15 Janet Edwards [address] [address] Railways Assistant Obstetrics 07/15/17 Psychiatric Attendant Relationship Specialty Start Date End Date Gallo Sanches DO [address] [place] [address] PCP - General Family Medicine 12/12/15 Janet Edwards [address] [address] Railways Assistant Obstetrics 07/15/17 Psychiatric Attendant Relationship Specialty Start Date End Date Gallo Sanches DO [address] [place] [address] PCP - General Family Medicine 12/12/15 Janet Edwards [address] [address] Railways Assistant Obstetrics 07/15/17 Psychiatric Attendant Relationship Specialty Start Date End Date Gallo Sanches DO [address] [place] [address] PCP - General Family Medicine 12/12/15 Janet Edwards [address] [address] Railways Assistant Obstetrics 07/15/17 Psychiatric Attendant Relationship Specialty Start Date End Date Gallo Sanches DO [address] [place] [address] PCP - General Family Medicine 12/12/15 Janet Edwards [address] [address] Railways Assistant Obstetrics 07/15/17 Psychiatric Attendant Relationship Specialty Start Date End Date Gallo Sanches DO [address] [place] [address] PCP - General Family Medicine 12/12/15 Janet Edwards [address] [address] Railways Assistant Obstetrics 07/15/17 Psychiatric Attendant Relationship Specialty Start Date End Date Gallo Sanches DO [address] [place] [address] PCP - General Family Medicine 12/12/15 Janet Edwards [address] [address] Railways Assistant Obstetrics 07/15/17 Psychiatric Attendant Relationship Specialty Start Date End Date Gallo Sanches DO [address] [place] [address] PCP - General Family Medicine 12/12/15 Janet Edwards [address] [address] Railways Assistant Obstetrics 07/15/17 Psychiatric Attendant Relationship Specialty Start Date End Date Gallo Sanches DO [address] [place] [address] PCP - General Family Medicine 12/12/15 Janet Edwards [address] [address] Railways Assistant Obstetrics 07/15/17 Psychiatric Attendant Relationship Specialty Start Date End Date Gallo Sanches DO [address] [place] [address] PCP - General Family Medicine 12/12/15 Janet Edwards [address] [address] Railways Assistant Obstetrics 07/15/17 Psychiatric Attendant Relationship Specialty Start Date End Date Gallo Sanches DO [address] [place] [address] PCP - General Family Medicine 12/12/15 Janet Edwards [address] [address] Railways Assistant Obstetrics 07/15/17 Psychiatric Attendant Relationship Specialty Start Date End Date Gallo Sanches DO [address] [place] [address] PCP - General Family Medicine 12/12/15 Janet Edwards [address] [address] Railways Assistant Obstetrics 07/15/17 Psychiatric Attendant Relationship Specialty Start Date End Date Gallo Sanches DO [address] [place] [address] PCP - General Family Medicine 12/12/15 Janet Edwards [address] [address] Railways Assistant Obstetrics 07/15/17 Psychiatric Attendant Relationship Specialty Start Date End Date Gallo Sanches DO [address] [place] [address] PCP - General Family Medicine 12/12/15 Janet Edwards [address] [phone] Railways Assistant Obstetrics 07/15/17 Psychiatric Attendant Relationship Specialty Start Date End Date Gallo Sanches DO [address] [place] [address] PCP - General Family Medicine 12/12/15 Janet Edwards [address] [place] [phone] Railways Assistant Obstetrics 07/15/17 Psychiatric Attendant Relationship Specialty Start Date End Date Gallo Sanches DO [address] [place] [address] PCP - General Family Medicine 12/12/15 Janet Edwards [address] [phone] Railways Assistant Obstetrics 07/15/17 Psychiatric Attendant Relationship Specialty Start Date End Date Gallo Sanches DO [address] [place] [address] PCP - General Family Medicine 12/12/15 Janet Edwards [address] [phone] Railways Assistant Obstetrics 07/15/17 Psychiatric Attendant Relationship Specialty Start Date End Date Gallo Sanches DO [address] [place] [address] PCP - General Family Medicine 12/12/15 Janet Edwards [address] [phone] Railways Assistant Obstetrics 07/15/17 Izabella Holland, COMPLIANCE ADVISOR.CUSTOMER SALES SPECIALIST [address] [place] [address] Insurance Job Titles Family [facility] 07/10/24 [facility], COMPLIANCE ADVISOR.CUSTOMER SALES SPECIALIST [address] [place] [address] [facility] 07/10/24 Psychiatric Attendant Relationship Specialty Start Date End Date Gallo Sanches DO [address] [place] [address] PCP - General Family Medicine 12/12/15 Janet Edwards [address] [phone] Railways Assistant Obstetrics 07/15/17 Izabella Holland, COMPLIANCE ADVISOR.CUSTOMER SALES SPECIALIST [address] [place] [address] [facility] 07/10/24 [facility], COMPLIANCE ADVISOR.CUSTOMER SALES SPECIALIST [address] [facility] [place] [address] [facility] 07/10/24 Psychiatric Attendant Relationship Specialty Start Date End Date Gallo Sanches DO [address] [facility] [place] [address] PCP - General Family Medicine 12/12/15 Janet Edwards [address] [address] Railways Assistant Obstetrics 07/15/17 Izabella Holland, COMPLIANCE ADVISOR.CUSTOMER SALES SPECIALIST [address] [facility] [place] [address] Insurance Job Titles Family Medicine 07/10/24 [facility], COMPLIANCE ADVISOR.CUSTOMER SALES SPECIALIST [address] [facility] [place] [address] Insurance Job Titles Family Medicine 07/10/24 Psychiatric Attendant Relationship Specialty Start Date End Date Gallo Sanches DO [address] [place] [address] PCP - General Family Medicine 12/12/15 Janet Edwards [address] [address] Railways Assistant Obstetrics 07/15/17 Izabella Holland, COMPLIANCE ADVISOR.CUSTOMER SALES SPECIALIST [address] [place] [address] Insurance Job Titles Family [facility] 07/10/24 [facility], COMPLIANCE ADVISOR.CUSTOMER SALES SPECIALIST [address] [facility] [place] [address] Insurance Job Titles Family Medicine 07/10/24 Psychiatric Attendant Relationship Specialty Start Date End Date Gallo Sanches DO [address] [facility] [place] [address] PCP - General Family Medicine 12/12/15 Janet Edwards [address] [phone] Railways Assistant Obstetrics 07/15/17 Izabella Holland, COMPLIANCE ADVISOR.CUSTOMER SALES SPECIALIST [address] [place] [address] Insurance Job Titles Family Medicine 07/10/24 [facility], COMPLIANCE ADVISOR.CUSTOMER SALES SPECIALIST [address] [place] [address] Insurance Job Titles Family Medicine 07/10/24 Psychiatric Attendant Relationship Specialty Start Date End Date Gallo Sanches DO [address] [place] [address] PCP - General Family Medicine 12/12/15 Janet Edwards [address] [place] [phone] Railways Assistant Obstetrics 07/15/17 Izabella Holland, COMPLIANCE ADVISOR.CUSTOMER SALES SPECIALIST [address] [place] [address] Insurance Job Titles Family Medicine 07/10/24 [facility], COMPLIANCE ADVISOR.CUSTOMER SALES SPECIALIST [address] [place] [address] Insurance Job Titles Family [facility] 07/10/24 Psychiatric Attendant Relationship Specialty Start Date End Date Gallo Sanches DO [address] [place] [address] PCP - General Family Medicine 12/12/15 Janet Edwards [address] [phone] Railways Assistant Obstetrics 07/15/17 Izabella Holland, COMPLIANCE ADVISOR.CUSTOMER SALES SPECIALIST [address] [facility] [place] [address] [facility] 07/10/24 [facility], COMPLIANCE ADVISOR.CUSTOMER SALES SPECIALIST [address] [place] [address] [facility] Psychiatric Attendant Relationship Specialty Start Date End Date Gallo Sanches DO [address] [place] [address] PCP - General Family Medicine 12/12/15 Janet Edwards [address] [phone] Railways Assistant Obstetrics 07/15/17 Izabella Holland, COMPLIANCE ADVISOR.CUSTOMER SALES SPECIALIST [address] [place] [address] [facility] 07/10/24 [facility], COMPLIANCE ADVISOR.CUSTOMER SALES SPECIALIST [address] [place] [address] [facility] 07/10/24 Psychiatric Attendant Relationship Specialty Start Date End Date Gallo Sanches DO [address] [place] [address] PCP - General Family Medicine 12/12/15 Janet Edwards [address] [address] Railways Assistant Obstetrics 07/15/17 Izabella Holland, COMPLIANCE ADVISOR.CUSTOMER SALES SPECIALIST [address] [place] [address] Insurance Job Titles Family Medicine 07/10/24 [facility], COMPLIANCE ADVISOR.CUSTOMER SALES SPECIALIST [address] [place] [address] Insurance Job Titles Family Medicine 07/10/24 Psychiatric Attendant Relationship Specialty Start Date End Date Gallo Sanches DO [address] [place] [address] PCP - General Family Medicine 12/12/15 Janet Edwards [address] [phone] Railways Assistant Obstetrics 07/15/17 [facility], COMPLIANCE ADVISOR.CUSTOMER SALES SPECIALIST [address] [place] [address] Insurance Job Titles Family [facility] 07/10/24 Psychiatric Attendant Relationship Specialty Start Date End Date Gallo Sanches DO [address] [place] [address] PCP - General Family Medicine 12/12/15 Janet Edwards [address] [phone] Railways Assistant Obstetrics 07/15/17 [facility], COMPLIANCE ADVISOR.CUSTOMER SALES SPECIALIST [address] [place] [address] [facility] 07/10/24 Psychiatric Attendant Relationship Specialty Start Date End Date Gallo Sanches DO [address] [place], [place] [address] PCP - General Family Medicine 12/12/15 Janet Edwards [address] [phone] Railways Assistant Obstetrics 07/15/17 CalvinRossi, COMPLIANCE ADVISOR.CUSTOMER SALES SPECIALIST [address] [place], [place] [address]69[address] [phone] Insurance Job Titles Family Medicine 07/10/24 Psychiatric Attendant Relationship Specialty Start Date End Date Gallo Sanches DO [address] [place], [place] [phone] PCP - General Family Medicine 12/12/15 Janet Edwards [address] [place] [address] [phone] Railways Assistant Obstetrics 07/15/17 Izabella Holland, COMPLIANCE ADVISOR.CUSTOMER SALES SPECIALIST [address] [place], [place] [address]32[address] Insurance Job Titles Family Medicine 07/10/24 10/21/24 [facility], COMPLIANCE ADVISOR.CUSTOMER SALES SPECIALIST [address] [place], [place] 520536 [phone] Insurance Job Titles Family Medicine 07/10/24 Psychiatric Attendant Relationship Specialty Start Date End Date Gallo Sanches DO [address] [place], [place] [address] PCP - General Family Medicine 12/12/15 Janet Edwards [address] [phone] Railways Assistant Obstetrics 07/15/17 [facility] Rossi, COMPLIANCE ADVISOR.CUSTOMER SALES SPECIALIST [address] [place] [address] Insurance Job Titles Family Medicine 07/10/24 Psychiatric Attendant Relationship Specialty Start Date End Date Gallo Sanches DO [address] [place] [address] PCP - General Family Medicine 12/12/15 Janet Edwards [address] [phone] Railways Assistant Obstetrics 07/15/17 [facility], COMPLIANCE ADVISOR.CUSTOMER SALES SPECIALIST [address] [place] [address] Insurance Job Titles Family Medicine 07/10/24 Lacey Carvajal, COMPLIANCE ADVISOR.CUSTOMER SALES SPECIALIST [address] [place], [place] [address] [phone] Insurance Job Titles Family Medicine 01/16/25 Psychiatric Attendant Relationship Specialty Start Date End Date Gallo Sanches DO [address] [place] [address] PCP - General Family Medicine 12/12/15 Janet Edwards [address] [phone] Railways Assistant Obstetrics 07/15/17 [facility], COMPLIANCE ADVISOR.CUSTOMER SALES SPECIALIST [address] [place] [address] Insurance Job Titles Family Medicine 07/10/24 Lacey Carvajal, COMPLIANCE ADVISOR.CUSTOMER SALES SPECIALIST [address] [place] [address] Insurance Job Titles Family [facility] 01/16/25 Psychiatric Attendant Relationship Specialty Start Date End Date Gallo Sanches DO [address] [place] [address] PCP - General Family Medicine 12/12/15 Janet Edwards [address] [phone] Railways Assistant Obstetrics 07/15/17 [facility], COMPLIANCE ADVISOR.CUSTOMER SALES SPECIALIST [address] [place] [address] Insurance Job Titles Family Medicine 07/10/24 Lacey Carvajal, COMPLIANCE ADVISOR.CUSTOMER SALES SPECIALIST [address] [place] [address] [facility] 01/16/25 Psychiatric Attendant Relationship Specialty Start Date End Date Gallo Sanches DO [address] [place] [address] PCP - General Family Medicine 12/12/15 Janet Edwards [address] [phone] Railways Assistant Obstetrics 07/15/17 [facility], COMPLIANCE ADVISOR.CUSTOMER SALES SPECIALIST [address] [place] [address] Insurance Job Titles Family Medicine 07/10/24 Lacey Carvajal, COMPLIANCE ADVISOR.CUSTOMER SALES SPECIALIST [address] [place] [address] [facility] Psychiatric Attendant Relationship Specialty Start Date End Date Gallo Sanches DO [address] [place] [address] PCP - General Family Medicine 12/12/15 Janet Edwards [address] [phone] Railways Assistant Obstetrics 07/15/17 [facility], COMPLIANCE ADVISOR.CUSTOMER SALES SPECIALIST [address] [place] [address] [facility]ly [facility] 07/10/24 Lacey Carvajal, COMPLIANCE ADVISOR.CUSTOMER SALES SPECIALIST [address] [place] [address] [facility]ly [facility] 01/16/25 Psychiatric Attendant Relationship Specialty Start Date End Date Gallo Sanches DO [address] [place] [address] PCP - General Family Medicine 12/12/15 Janet Edwards [address] [phone] Railways Assistant Obstetrics 07/15/17 [facility], COMPLIANCE ADVISOR.CUSTOMER SALES SPECIALIST [address] [place] [address] [facility]ly [facility] 07/10/24 Lacey Carvajal, COMPLIANCE ADVISOR.CUSTOMER SALES SPECIALIST [address] [place] [address] [facility]ly [facility] 01/16/25 Active Administered Medications - up to 3 most recent administrations Administered Medications (un recognized section and content) Medication Order MAR Action Action Date Dose Rate Site [id number] 210 mg injection (EVENITY) 210 mg, SUBCUTANEOUS, EVERY 1 MONTH, 13 doses, First dose on Penny 09/25/22 at 1230, Last dose on 09/20/23 at 1230, Allow to sit for 30 minutes to reach room temperature before injection. Total dose is 2 syringes (210 mg total) injection into abdomen, thigh, or upper arm. Given 09/14/2023 8:56 AM EST 210 mg Arm, Left Given 08/13/2023 1:55 PM EST 210 mg Ar m, Left Given 07/13/2023 8:26 AM EST 210 mg Ar m, Left FOR RECORDS PERTAINING TO PATIENTS WHO ARE OR HAVE BEEN ENROLLED IN A CHEMICAL DEPENDENCY/SUBSTANCEABUSE PROGRAM, SOME INFORMATION MAY BE OMITTED. This clinical summary was aggregated from multiple sources. Caution should be exercised in using it in the provision of clinical care. This summary normalizes information from multiple sources, and as a consequence, information in this document may materially change the coding, format and clinical context of patient data. In addition, data may be omitted in some cases. CLINICAL DECISIONS SHOULD BE BASED ON THE PRIMARY CLINICAL RECORDS. [employer] provides no warranty or guarantee of the accuracy or completeness of information in this document.
--- NOTE | 2025-04-14 07:05 | CT_ITS ---
PROCEDURE: LIMITED CHEST CT CARDIAC ONLY 04/14/2025 REASON FOR EXAM: FAM HX TECHNIQUE: Procedure Code: [id number] Modality: CT Procedure: LIMITED CHEST CT CARDIAC ONLY Limited chest CT performed for coronary artery calcium scoring. One or more dose reduction techniques were used (e.g., Automated exposure control, adjustment of the mA and/or kV according to patient size, use of iterative reconstruction technique). RADIATION DOSE SUMMARY: CTDlvol: 12.19 mGy DLP: 243.79 mGycm COMPARISON: None. CT/Limited Chest CT Cardiac Only IMPRESSION: Partially visualized bilateral breast prostheses noted. Splenic calcifications and small densely calcified right hilar and mediastinal lymph nodes, consistent with old granulomatous disease. Limited imaging of the lungs demonstrates no acute process. No pleural effusion or pneumothorax is seen in visualized areas. No adenopathy is noted. The visualized upper abdomen demonstrates no significant abnormality. Reading Location: [place] [address]
--- NOTE | 2025-04-20 11:19 | CA.SCORE ---
Calcium Scoring Date of Study:: 04/14/25 Indications Indications: Screening family history Coronary Calcium Scoring: High-resolution Computed Tomographic imaging of the chest was performed on [04/14/2025], with particular attention paid to the coronary arteries. Images from the examination were analyzed for the presence and extent of coronary artery calcification , using coronary calcium quantification software. The patient tolerated the procedure well and there were no complications. The results of the coronary calcification analysis are provided below. Findings Coronary Artery Left Main (LM): 0 Left Anterior Descending (LAD): 0 Left Circumflex (LCX): 0 Right Coronary Artery (RCA): 0 Total Agatston Score: 0 Percentile Rankin Calcium Scoring Interpretation: Different methods to categorize the overall amount of coronary plaque. Overall amount CAC SIS Visual of coronary plaque P1 Mild -100 <2 1-2 vessels with mild amount of plaque P2 Moderate 101-300 3-4 1-2 vessels with moderate amount, 3 vessels with mild amount of plaque P3 Severe 301-999 5-7 3 vessels with moderate amount, 1 vessel with severe amount of plaque P4 Extensive >1000 >8 2-3 vessels with severe amount of plaque Conclusion: No atherosclerotic plaquing noted.
== END | disposition home or self-care (01) ==
PROVIDERS: PCP Student in an Organized Health Care Education/Training Program; Referring Provider Student in an Organized Health Care Education/Training Program; Visit Provider Student in an Organized Health Care Education/Training Program
DX: Z13.6 Encounter for screening for cardiovascular disorders (principal); Z82.49 Family history of ischemic heart disease and other diseases of the circulatory system; E78.2 Mixed hyperlipidemia
CPT/HCPCS: 75571; 76380

== ENCOUNTER 2025-06-26 15:22 | Observation (INO) | payer OTHER, SELFPAY ==
--- NOTE | 2025-05-31 15:37 | PAT.ANESEVAL ---
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 When Was Last Pacemaker Check QUESTION #4 FULL TEXT: You/Your Family Experience fever (hyperthermia) with Anesthesia Last Oral Intake Last Oral intake: Last Oral Intake NPO since Meds taken in AM with sips of water? Meds patient instructed to take am of surgery PONV PONV - software licensing executive: PONV - software licensing executive Female Yes 05/31/25 11:43 HX of Motion Sickness No 05/31/25 11:43 HX of N/V After Surgery No 05/31/25 11:43 Non-Smoker Yes 05/31/25 11:43 Duration of Surgery greater Yes 05/31/25 11:43 than 60 minutes Number of Risk Factors 3 05/31/25 11:43 PONV Score Moderate Risk 05/31/25 11:43 Height & Weight Height & Weight: Anesthesia: Height & Weight Height 5 ft 2.99 in 01/07/24 12:50 Respiratory Assessment Respiratory Assessment - software licensing executive: Respiratory Tract Infection Hx - software licensing executive Hx Respiratory Tract Infection No 05/31/25 11:43 STOP Sleep Apnea STOP Sleep Apnea - software licensing executive: STOP Sleep Apnea - software licensing executive Hx Hypertension No 05/31/25 11:43 Hx Sleep Apnea No 05/31/25 11:43 CPAP BIPAP Do you snore loudly (louder No 05/31/25 11:43 than talking or can be heard Do you often feel tired/ No 05/31/25 11:43 fatigued/ sleepy during daytime? Has anyone observed you stop No 05/31/25 11:43 breathing during sleep? STOP Results Negative 05/31/25 11:43 QUESTION #5 FULL TEXT : Do you snore loudly (louder than talking or can be heard through closed doors)? 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 Specify any problems Hx of Preganancy in last 3 No 05/31/25 11:43 Months Nurse Filling Out Transfusion DSCHRIBER 05/31/25 11:43 & Questions: Date: 05/31/25 05/31/25 11:43 Time: 11:45 05/31/25 11:43 Patient unable to answer at this time (ie. confused, unrespo /Reproduction History /Reproductive History - software licensing executive: /Reproductive Hx- software licensing executive Hx Now No 05/31/25 11:43 Gestational Age (in weeks): EDC: Hx Hx Para Hx Section SAB No 05/31/25 11:43 PFSH Medical History (Updated 05/31/25 @ 11:57 by Makayla Ya) Bladder disease Injury of head and neck Wears contact lenses Cancer Anxiety Arthritis Low iron Dietary restriction History of hiatal hernia History of IBS Gastric reflux Non-smoker Leg cramps History of pain when walking Cystocele with prolapse Cystocele Wears glasses High cholesterol Osteopenia Breast cancer Home Medications ?Medication ?Instructions ?Recorded ?Last Taken ?Type calcium 600 mg (as 1 cap PO BID SUPPLEMENT 03/19/18 Unknown History carbonate)-vitamin D3 10 mcg (400 unit) capsule (Calcium with Vitamin D3) cyanocobalamin (vitamin B-12) 100 100 mcg PO DAILY SUPPLEMENT 10/12/20 Unknown History mcg tablet venlafaxine 37.5 mg 37.5 mg PO DAILY DEPRESSION 07/20/21 01/07/24 06:00 History capsule,extended release 24 hr denosumab 60 mg/mL subcutaneous 60 mg subcut .[id number] BLOOD 12/31/23 Unknown History syringe (Prolia) omeprazole 20 mg capsule,delayed 20 mg PO DAILY GERD 12/31/23 01/07/24 06:00 History release rosuvastatin 5 mg tablet 5 mg PO DAILY CHOLESTEROL 12/31/23 Unknown History vibegron 75 mg tablet (Gemtesa) 75 mg PO 1200 OAB 12/31/23 Unknown History cetirizine 10 mg tablet (Allergy 10 mg PO DAILY ALLERGIES 05/31/25 Unknown History Relief (cetirizine)) docusate sodium 100 mg capsule 100 mg PO BID CONSTIPATION 05/31/25 Unknown History (Colace) famotidine 20 mg tablet 40 mg PO QHS GERD 05/31/25 Unknown History iron eny-orl-YY-C-B12-Ca thr-succ 1 tab PO MOWEFR SUPPLEMENT 05/31/25 Unknown History 150 mg-800 mcg-140 mg tablet krill 500 mg-omega-3 150 mg-dha 45 1 cap PO DAILY SUPPLEMENT 05/31/25 Unknown History mg-epa 75 fy-pozuucv-bzlrm capsule (krill oil) prucalopride 2 mg tablet 2 mg PO QHS IBS 05/31/25 Unknown History Allergy/AdvReac Type Severity Reaction Status Date / Time Penicillins Allergy Mild hives Verified 05/31/25 11:59 nickel AdvReac Rash Verified 05/31/25 11:59 Family History Father Congestive heart failure Diabetes Mother Breast cancer Diabetes Skin cancer Surgical History (Updated 05/31/25 @ 11:57 by Makayla Ya) Hx of breast reconstruction Hx of shoulder surgery History of bunionectomy of left great toe History of bunionectomy of right great toe History of total left knee replacement History of cystoscopy Hx of BSO (bilateral salpingo-oophorectomy) History of total vaginal hysterectomy (TVH) H/O foot surgery S/P bilateral mastectomy (~08/2017) Social History (Updated 11/05/20 @ 08:[address] 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 Sinus rhythm 84 bpm. Additional pertinent findings: Hemoglobin 9.0 g/dL. 01/08/2024. This level should be adequate for procedure. Recommendation Anesthesia Recommendation Anesthesia recommendation: OPTIMIZED for anesthesia
[2025-06-12 17:13] LABS: Hematocrit 36.8 % (37-47); Hemoglobin 11.9 g/dL (12.0-15.0); Immature Granulocytes Count 0.010 X10^3/uL (0.0-0.0); Mean Corp Hgb Conc 32.3 g/dL (32-36); Mean Corpuscular Volume 86.6 fL (81-99); Mean Platelet Vol. 11.0 fl (6.2-12.0); NRBC Flagged by Analyzer 0 % (0-5); Platelet Count 216 K/mm3 (150-450); RBC Distribution Width CV 14.0 % (11.6-14.6); RBC Distribution Width SD 44.1 fl (35.1-43.9); Red Blood Count 4.25 M/mm3 (4.2-5.4); White Blood Count 5.7 K/mm3 (4.4-11.0)
[2025-06-12 17:41] LABS: Magnesium 2.2 mg/dL (1.5-2.2)
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
[2025-06-26] VITALS (13 sets, daily range): BP systolic 100–117; BP diastolic 52–78; PULSE 71–90; RESP 16–18; TEMP 36.2–36.6; O2SAT 98–100; BMI 23.8
[2025-06-26] MEDS: LR 1,000 ML - BOLUS PREOP 999 ML IV (12:24)
[2025-06-26] MEDS: Magnesium 1 GM over 15 mins IV (12:24)
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
[2025-06-26] MEDS: Cefazolin 1 GM/5 ML Vial 2 GM IV (14:18)
[2025-06-26] MEDS: Midazolam 2 MG/2 ML Syringe IV (14:20)
--- NOTE | 2025-06-26 14:24 | CHAPLAIN ---
Type of Pastoral Visit _x__ Initial Visit ___ Follow-up Visit ___ On-call Visit ___ General Patient Visit ___ Spiritual Assessment ___ Family Conference ___ Bereavement ___ Rapid Response ___ Code Blue ___ Other (describe below) Pastoral Care Referral From _x__ Patient _x__ Family ___ Nurse ___ Physician ___ Design Transferrer ___ Fire Extinguisher Repairer ___ Other (describe below) Sacrament/Intervention _x__ Active listening ___ Anointing ___ Buddhism ___ Bereavement ___ Communion ___ Yara exploration ___ _x__ Life review _x__ Prayer ___ Reconciliation ___ Sacrament of Sick ___ Supportive presence ___ Wedding ___ Other (describe below) Pastoral Comments pre surgery prayer requested; presence and conversation
[2025-06-26] MEDS: Lidocaine 1% (5 ml sdv) 5 ML Vial IV (14:34)
[2025-06-26] MEDS: LR 1,000 ML - BOLUS POSTOP 999 ML IV (14:45)
[2025-06-26] MEDS: Lactated Ringers 1,000 ML 1000 ML IV (15:10)
[2025-06-26] MEDS: TRANEXAMIC ACID 1,000 MG/10 ML ML 2000 MG IV (15:10)
[2025-06-26] MEDS: JPS (Morphine 10mg/ml) OPERA.SITE (15:13)
--- NOTE | 2025-06-26 15:28 | RAD_ITS ---
PROCEDURE: KNEE 1 OR 2 VIEWS 06/26/2025 REASON FOR EXAM: TKA TECHNIQUE: Procedure Code: RADK Modality: DX Procedure: KNEE 1 OR 2 VIEWS Laterality: Left COMPARISON: None FINDINGS: Status post total knee arthroplasty. The patellar, femoral and tibial components are normal apposition. There is no evidence of fracture. There is normal postoperative air and fluid within the knee and periarticular soft tissues. There are skin benjamin over the knee anteriorly. RAD/Knee 1 or 2 Views IMPRESSION: Status post left total knee arthroplasty. Reading Location: [id number]
--- NOTE | 2025-06-26 15:34 | PCM.OPRPT ---
Operative Report (Standard) Operative Information Date of Procedure: 06/26/25 Pre-Operative Diagnosis: Painful left total knee, popliteus syndrome Post-Operative Diagnosis: Painful left total knee, popliteus syndrome Surgery/Procedure Performed: Revision left total knee replacement polyethylene exchange with debridement lateral bony osteophyte femur and tibia and release popliteus tendon safety investigator/cause analyst: Yes [employer] Safety Program Coordinator: Theresa Gutiérrez Tasks completed by children's nursery assistant: Other (See body of operative report) Additional zoning assistant?: Yes Additional Complaint Adjuster #2: Giovanna Oglesby Tasks completed by zoning assistant #2: Opening, Closing and Retracting Additional zoning assistant?: No Type of Anesthesia: Spinal RN Documented Start/Stop Times: Operation Date: 06/26/25 13:45 Case Time Into Pre-Op 06/26/25 11:56 Anesthesia Start 06/26/25 14:18 Into Room 06/26/25 14:18 Out of Pre-Op 06/26/25 14:18 Procedure Start 06/26/25 14:42 Procedure End 06/26/25 15:58 Anesthesia End 06/26/25 16:00 Into Recovery 06/26/25 16:00 Out of Room 06/26/25 16:00 Out of Recovery 06/26/25 17:04 Procedure Start Time: 14:42 Procedure Stop Time: 15:58 Select all DRAINS/GRAFTS/IMPLANTS that apply: Prosthetic device Prosthetic device details: [employer] persona left 10 mm medial congruent C-D, 4-5 tibial insert Special Medications: Ancef Estimated Blood Loss: 25 mL Fluids Replaced: 1200 mL crystalloid Specimen collected: No Description of surgery: On the date of procedure patient's L lower extremity was marked in the preoperative area. In the preoperative area patient was reexamined once more and lateral crepitus was demonstrated as the knee was taken through range of motion. The patient was then taken back to the operating room where the patient was placed on the table in the supine position. All bony prominences were identified a well-padded. Anesthesia assumed control of the C-spine and airway and remained controlled throughout the remainder of the procedure. A tourniquet was placed on the operative thigh and the leg was prepped in a sterile fashion. The surgeon then scrubbed at this time .Upon reentering the room left lower extremity was draped in a standard orthopedic fashion. A timeout was then called and everyone agreed upon the side, the site, the procedure to be performed, patient's identity and antibiotics given. A midline skin incision was made and sharp dissection was taken down through skin subcutaneous tissue and fat. Appropriate flaps were elevated medially and laterally. His arthrotomy was identified and the standard medial parapatellar incision was made and the patella was subluxed laterally. The standard deep MCL release was done. At this point a complete synovectomy commenced. Our attention was first turned towards the subpatellar pouch and all synovium and tissues were debrided. We then directed our attention towards medial lateral gutters were these tissues were debrided. We then directed our attention to the lateral gutter. There was a band of tissue in the lateral gutter which was released once we did this we then took the knee through range of motion palpating the lateral side and patient continued to have crepitus. Knee was then flexed up the polyethylene was removed. Once polyethylene was removed we did the remainder of the synovium in the medial and lateral gutters and along the lateral structures and MCL. We were able to place his knee laterally and noted that patient had a small ridge of osteophytes still over the distal lateral femur this was carefully rongeured down. Once we did this we placed a trial to the knee through range of motion and the knee was felt to have improved crepitus however some residual crepitus remained. There is also a small ridge of bone over the lateral proximal tibia this was debrided knee was taken through range of motion with the trial in place once this was completed and the crepitus appeared to be significantly improved at that time. Trial was once again removed we then debrided the posterior knee at this time we are able to identify the popliteus and it was released. Once again the trial was put in place and the knee was without crepitus and the knee remained stable. Once you are happy with the trialing and the resolution of the crepitus laterally 6 L of normal saline were then irrigated throughout the wound with low-pressure lavage and the wound was once again explored. 10 mm polyethylene was then opened and put back into place after appropriate trialing. Tourniquet was let down and hemostasis was obtained as well as possible. The wound was waldemar irrigated out with a dilute Betadine solution, chlorhexidine solution and copious amounts of normal saline. The wound was closed in a layer hart fashion using #1 vicryl interrupted sutures for the arthrotomy, 2-0 interrupted Vicryl for the subcuticular layer and benjamin for final skin closure. A sterile compressive dressing was then placed. The patient was then awakened from anesthesia, transferred to the [facility] and transferred to the PACU for recovery. Post op plan Patient will discontinue her estradiol for the next 2 weeks and be placed on aspirin 81 mg p.o. twice daily for DVT prophylaxis. Patient will be placed on doxycycline due to revision nature of the surgery for 2 weeks postoperatively. Patient is weightbearing as tolerated, activity as tolerated. My physician zoning assistant was a vital part of this case, they was important because there was not another skilled set of hands available to their training and aptitude needed for safe and appropriate completion of this case. They were important in appropriate retraction during the case, and protection of soft tissues during bony cuts. In particular the experience and skill of this zoning assistant made for safe retraction and exposure during implantation of medical implants without damage or fracture to vital soft tissues or structures. His intimate knowledge of the case and my steps aided in safe and expedient completion of the procedure as well as appropriate position of the leg during the case. He was also vital in assisting with closure and placement of the dressing under my direct supervision. Surgical Findings: Popliteal tendon was released was invested in scar tissue. There was a bony ridge over the medial lateral distal femoral condyle as well as the lateral distal tibial condyle both of which were debrided. At the end of the procedure patient's lateral crepitus could no longer be felt. Complications Complications: No Admit VTE Documentation VTE Present on Admission: No VTE Mechan Device Prophylaxis: SCD's and Thigh High KATIUSKA Hose VTE Pharm Prophylaxis ordered?: Yes
--- NOTE | 2025-06-26 16:00 | PCM.POST.ANE ---
Anesthesia: Postop Eval I Current Vital Signs Temperature: 98 F Pulse Rate: 89 Blood Pressure: 104/63 Respiratory Rate: 16 Pulse Ox: 98 Oxygen Delivery Method: Room Air Assessment Airway patent: Yes Spontaneous unlabored respirations: Yes Mental status: Awake and Calm nausea: No Vomiting: No Anesthesia Complication: No Fluid Hydration Crystalloid volume administer (ml): 1,200 Total IV fluid infused: 1,200 Progress Note Anesthesia document: Postop Eval 1 completed: Yes
--- NOTE | 2025-06-26 16:21 | PCM.PN.HOSP ---
Subjective Subjective Patient with no events perioperatively per discussion with patient and also with surgical staff. Patient evaluated in the PACU and also having a block being performed. She currently denies any pain at this time. Patient denies fevers, chills, nausea, emesis, abdominal pain, chest pain or dyspnea. Objective Data Objective Data Vital Signs: Vital Signs Temp Pulse Resp BP Pulse Ox O2 Del Method 98 F 89 16 104/63 98 Room Air 06/26/25 16:09 06/26/25 16:09 06/26/25 16:09 06/26/25 16:09 06/26/25 16:09 06/26/25 16:09 Oxygen Delivery Method Room Air Weight: 134 lb 11.239 oz Body Mass Index (BMI) 23.8 Intake & Output: Intake and Output for Last 24 Hours 06/24/25 06/25/25 06/26/25 23:59 23:59 23:59 Output Total Balance - Lab / Micro Data 06/12/25 16:52 Labs: Laboratory Results - last 24 hr 06/26/25 12:10: POC Glucose 109 H Micro: Microbiology 06/12/25 16:52 Swab (Method) Nasal Screen MRSA/MSSA - Final Physical Exam Narrative Physical Examination: General: Awake, alert, oriented x 3 and cooperative, laying in the PACU bed, denies any pain at this time, currently anesthesiology is performing a left lower extremity block. Skin: Normal color, normal turgor, no icterus, no cyanosis except occasional stage ecchymoses, status post left knee intervention with dressing in place with no drainage. HEENT: AT/NC, EOMI, PERRLA, mildly dry MM, no carotid bruits or JVD noted. Lungs: Mildly diminished, greater bases, proper effort, no rales, ronchi or wheezing. Heart: Regular rate and rhythm; no gallop, rub audible. Abdomen: Soft, NTTP, ND, mildly hyperactive BS, no appreciated HSM. Extremities: No cyanosis, no clubbing, left lower extremity with as noted dressings in place with no drainage, currently anesthesia performing left lower extremity block. Neurological: Patient awake, alert, oriented as noted, cognitive function intact; pupils equally reactive to light and accommodation, cranial nerves grossly normal, moving extremities but currently planned for left lower extremity block, strength severely globally creased given recent OR and current intervention. Psychiatric: Affect appears fatigued otherwise normal, no acute evidence of depressive or anxiety feelings but does have underlying history. Assessment & Plan Assessment/Plan (1) Popliteus tendinitis of left lower extremity: PLAN: Plan The patient is a 55 y/o F w/ PMHx: Hx Breast CA s/p bilateral mastectomy with reconstruction, IBS, Anxiety and Depression, GERD, HLD, Osteoarthritis who presents to the [facility] on 06/22/2025 secondary to ongoing persistent left knee discomfort with popliteus syndrome with plan per Dr. Cedillo for revision left total knee replacement with a polyethylene exchange with debridement of the lateral bony osteophyte femur and tibia and release of the popliteus tendon. #1. Intractable painful left total knee, popliteus syndrome: Failed conservative therapies and treatments, admitted per Dr. Cedillo, s/p Revision left total knee replacement polyethylene exchange with debridement lateral bony osteophyte femur and tibia and release popliteus tendon, post-operative pain management, bowel regimen, DVT Prophylaxis, PT/OT/CM per Orthopedic surgery discretion. #2. Anxiety and depression: Will continue patient home Venlafaxine regimen. #3. GERD: Will continue patient home omeprazole and famotidine regimen. #4. Allergic rhinitis: Will continue patient cetirizine if necessary otherwise will temporarily hold while inpatient. #5. IBS: Patient on chronic prucalopride outpatient, may continue if available or able to take home medication otherwise may need to hold. #6. History of breast cancer: Unclear exact cancer type, status post bilateral mastectomy, unclear other interventions, considered currently in remission, encourage follow-up as previously arranged #7. Hyperlipidemia: Continue patient on statin therapy. #8. DVT prophylaxis: SCDs, chemoprophylaxis per surgery discretion given recent OR. Charges/Coding Visit Charges Inpatient E&M: 27011 Subs Hosp L3
--- NOTE | 2025-06-26 16:42 | POSTOPAN2_ITS ---
Anesthesia Postop Eval I Sum Postop Eval Completion status Anesthesia document: Postop Eval 1 completed: Yes Anesthesia Postop Eval I Summary Anesthesia Postop Eval I Summary: Anesthesia Postop Eval I: Assessment Summary Airway patent Yes 06/26/25 16:09 BUILDING SERVICES [email or web address] Spontaneous unlabored Yes 06/26/25 16:09 BUILDING SERVICES [email or web address].[email or web address] respirations Mental status Awake,Calm 06/26/25 16:09 BUILDING SERVICES COORDINATOR.[email or web address] nausea No 06/26/25 16:09 BUILDING SERVICES COORDINATOR.[email or web address] Vomiting No 06/26/25 16:09 BUILDING SERVICES [email or web address].[email or web address] Anesthesia Postop Eval I: Fluid Summary Crystalloid volume administer 1,200 06/26/25 16:09 BUILDING SERVICES [email or web address].[email or web address] (ml) Colloids volume administered ( ml) Blood Product volume administered (ml) Total IV fluid infused 1,200 06/26/25 16:09 BUILDING SERVICES [email or web address].[email or web address] Anesthesia Postop Eval I: Summary Notes Anesthesia Complication No 06/26/25 16:09 BUILDING SERVICES [email or web address].[email or web address] Anesthesia Complication Comment: Post-operative progress note Anesthesia: Postop Eval II Evaluation Mental status: Awake Pain Level: 0 nausea: No Vomiting: No Complications Anesthesia Complication: No
--- NOTE | 2025-06-26 16:42 | PCM.POSTANE2 ---
Anesthesia Postop Eval I Sum Postop Eval Completion status Anesthesia document: Postop Eval 1 completed: Yes Anesthesia Postop Eval I Summary Anesthesia Postop Eval I Summary: Anesthesia Postop Eval I: Assessment Summary Airway patent Yes 06/26/25 16:09 [email or web address] Spontaneous unlabored Yes 06/26/25 16:09 [email or web address] respirations Mental status Awake,Calm 06/26/25 16:09 [email or web address] nausea No 06/26/25 16:09 [email or web address] Vomiting No 06/26/25 16:09 [email or web address] Anesthesia Postop Eval I: Fluid Summary Crystalloid volume administer 1,200 06/26/25 16:09 [email or web address] (ml) Colloids volume administered ( ml) Blood Product volume administered (ml) Total IV fluid infused 1,200 06/26/25 16:09 [email or web address] Anesthesia Postop Eval I: Summary Notes Anesthesia Complication No 06/26/25 16:09 [email or web address] Anesthesia Complication Comment: Post-operative progress note Anesthesia: Postop Eval II Evaluation Mental status: Awake Pain Level: 0 nausea: No Vomiting: No Complications Anesthesia Complication: No
[2025-06-26] MEDS: LR 1,000 ML - 125 ML/HR (POST BOLUS) POST OP IV (18:10)
[2025-06-26] MEDS: Cefazolin 1 GM/50 ML BAG IV (21:29)
[2025-06-26] MEDS: PRUCALOPRIDE SUCCINATE 2 MG TABLET PO (21:32)
[2025-06-26] MEDS: Senna/Docusate Sodium 1 Tablet 2 TABLET PO (21:34)
[2025-06-27 02:30] VITALS: BP 103/64; PULSE 70; RESP 18; TEMP 36.5; O2SAT 100
[2025-06-27 06:49] VITALS: BP 102/71; PULSE 68; RESP 16; TEMP 36.4; O2SAT 99
[2025-06-27 06:55] LABS: Hematocrit 34.2 % (37-47); Hemoglobin 11.0 g/dL (12.0-15.0); Mean Corp Hgb Conc 32.2 g/dL (32-36); Mean Corpuscular Volume 87.2 fL (81-99); Mean Platelet Vol. 11.1 fl (6.2-12.0); Platelet Count 207 K/mm3 (150-450); RBC Distribution Width CV 13.8 % (11.6-14.6); RBC Distribution Width SD 43.9 fl (35.1-43.9); Red Blood Count 3.92 M/mm3 (4.2-5.4); White Blood Count 12.6 K/mm3 (4.4-11.0)
[2025-06-27] MEDS: Cefazolin 1 GM/50 ML BAG IV (06:57)
[2025-06-27 07:32] LABS: Anion Gap 7 (5-15); BUN 12 mg/dL (4-19); BUN/Creat Ratio 15.7 RATIO (10-20); Calcium,Total 8.1 mg/dL (7.6-11.0); Carbon Dioxide 24.9 mmol/L (21.0-32.0); Chloride 106 mmol/L (98-108); Estimated Creatinine Clearance 68.46 ml/min (50-250); Glucose 94 mg/dL (70-99); Potassium 4.3 mmol/L (3.3-5.1)
--- NOTE | 2025-06-27 08:30 | PCM.PN.HOSP ---
Subjective Subjective Resting comfortably Objective Data Objective Data Vital Signs: Vital Signs Temp Pulse Resp BP Pulse Ox O2 Del Method O2 Flow Rate 97.6 F L 68 16 102/71 99 Room Air 3 06/27/25 06:49 06/27/25 06:49 06/27/25 06:49 06/27/25 06:49 06/27/25 06:49 06/27/25 07:30 06/26/25 17:44 Oxygen Flow Rate (L/min) 3 Oxygen Delivery Method Room Air Weight: 134 lb 11.239 oz Body Mass Index (BMI) 23.8 Intake & Output: Intake and Output for Last 24 Hours 06/26/25 06/27/25 06/28/25 03:59 03:59 03:59 Intake Total 3364.5 / 3364.5 250 / 250 Output Total 825 / 825 Balance 2539.5 / 2539.5 250 / 250 Lab / Micro Data 06/27/25 06:45 06/27/25 06:45 Labs: Laboratory Results - last 24 hr 06/26/25 12:10: POC Glucose 109 H 06/27/25 06:45: WBC 12.6 H, RBC 3.92 L, Hgb 11.0 L, Hct 34.2 L, MCV 87.2, MCH 28.1, MCHC 32.2, RDW Std Deviation 43.9, RDW Coeff of Don 13.8, Plt Count 207, MPV 11.1, Sodium 138, Potassium 4.3, Chloride 106, Carbon Dioxide 24.9, Anion Gap 7, BUN 12, Creatinine 0.75, Estim Creat Clear Calc 68.46, Est GFR (MDRD) Non-Af 93, BUN/Creatinine Ratio 15.7, Glucose 94, Calcium 8.1 Micro: Microbiology 06/12/25 16:52 Swab (Method) Nasal Screen MRSA/MSSA - Final Radiography Diagnostic Testing: Radiology Impression Knee X-Ray 06/26/25 15:28 IMPRESSION: Status post left total knee arthroplasty. Reading Location: [id number] Physical Exam Narrative General: Resting, Cooperative, No apparent distress Oral: Moist Mucosa Neck: Supple, No JVD Lungs: Diminished, Normal air movement, No rhonchi, No wheeze, No rales Cardiovascular: Regular rate, Regular Rhythm, Normal S1, Normal S2, No murmurs Extremities: No edema, Capillary Refill Less than 3 Seconds Skin: Dressing CDI Assessment & Plan Assessment/Plan (1) Popliteus tendinitis of left lower extremity: PLAN: Plan 1. Status post left total knee revision on 06/26/2025 ? PT/OT ? Pain management per primary ? Reactive leukocytosis ? Appears medically stable for discharge, will sign off 2. Hyperlipidemia ? Stable ? Continue with Crestor 3. Anxiety/depression ? Stable ? Continue with her home medications DVT: Per Ortho Charges/Coding Visit Charges Inpatient E&M: 53980 Subs Hosp L1
[2025-06-27] MEDS: Senna/Docusate Sodium 1 Tablet 2 TABLET PO (09:48)
[2025-06-27 11:00] VITALS: BP 103/72; PULSE 75; RESP 16; TEMP 36.6; O2SAT 100
--- NOTE | 2025-06-27 11:02 | PCM.PN.ORT ---
Subjective Subjective Patient is sitting comfortably in bed upon examination. Patient states that she is doing very well at this point. Patient states that she is very happy with her results thus far. Patient states that she is eager to get home at this point. Patient denies any new nausea vomiting dizziness. Patient denies any new numbness or tingling. Patient denies any shortness of breath, chest pain, calf pain. Patient denies any adverse events overnight. Objective Data Objective Data Vital Signs: Vital Signs Temp Pulse Resp BP Pulse Ox O2 Del Method O2 Flow Rate 97.6 F L 68 16 102/71 99 Room Air 3 06/27/25 06:49 06/27/25 06:49 06/27/25 06:49 06/27/25 06:49 06/27/25 06:49 06/27/25 07:30 06/26/25 17:44 Oxygen Flow Rate (L/min) 3 Oxygen Delivery Method Room Air Weight: 61.1 kg Body Mass Index (BMI) 23.8 Intake & Output: Intake and Output for Last 24 Hours 06/25/25 06/26/25 06/27/25 23:59 23:59 23:59 Intake Total 3364.5 / 3364.5 837.5 / 837.5 Output Total 850 / 850 Balance 2514.5 / 2514.5 837.5 / 837.5 Lab / Micro Data 06/27/25 06:45 06/27/25 06:45 Labs: Laboratory Results - last 24 hr 06/26/25 12:10: POC Glucose 109 H 06/27/25 06:45: WBC 12.6 H, RBC 3.92 L, Hgb 11.0 L, Hct 34.2 L, MCV 87.2, MCH 28.1, MCHC 32.2, RDW Std Deviation 43.9, RDW Coeff of Don 13.8, Plt Count 207, MPV 11.1, Sodium 138, Potassium 4.3, Chloride 106, Carbon Dioxide 24.9, Anion Gap 7, BUN 12, Creatinine 0.75, Estim Creat Clear Calc 68.46, Est GFR (MDRD) Non-Af 93, BUN/Creatinine Ratio 15.7, Glucose 94, Calcium 8.1 Micro: Microbiology 06/12/25 16:52 Swab (Method) Nasal Screen MRSA/MSSA - Final Radiography Diagnostic Testing: Radiology Impression Knee X-Ray 06/26/25 15:28 IMPRESSION: Status post left total knee arthroplasty. Reading Location: [id number] Physical Exam Narrative KATIUSKA hose in place bilaterally SCDs in place bilaterally Dressing is clean, dry, intact. Dorsiflexion and plantarflexion are performed actively without pain or restriction Sensation intact light touch. Neurovascularly intact overall. Negative Homans bilaterally. Const alert, oriented x3 and no apparent distress Assessment & Plan Assessment/Plan (1) S/P revision of total knee: PLAN: Status post revision left total knee replacement polyethylene exchange with debridement lateral bony osteophytes femur and tibia and release popliteus tendon today 1. 1. DVT prophylaxis: Patient will be using aspirin 81 mg twice daily for 4 weeks postoperatively. Patient was educated to wear KATIUSKA hose for 2 weeks postoperatively. Patient was reminded that she is not to use her estradiol for 2 weeks postoperatively. Patient voiced understanding. 2. Pain medications: Patient was instructed to take Tylenol 1000 mg every 8 hours, Celebrex, oxycodone as needed for postoperative pain. Patient was educated while she is on Celebrex do not take with any other anti-inflammatory medications. 3. Constipation: Patient was instructed to take senna as instructed until her first bowel movement to decrease risk of impaction. Patient was instructed if they have not had a bowel movement in 3 days to call our office for reevaluation 4: Physical therapy: Patient is weightbearing as tolerated with walker and physical therapy. Patient does have outpatient physical therapy established. 5. H&H: 11.0/34.2. Vital signs are stable and patient is afebrile. Patient is already following anemia protocol at this time. Patient was educated to continue anemia protocol. 6. Reactive leukocytosis: White blood cell count is currently 12.6. Patient did receive Decadron intraoperatively. Vital signs are stable and afebrile at this time. 7. Dressings: Patient was educated to remove dressings on postoperative day 5. Patient was educated she can leave open to air following removal of the dressings. Patient was educated no soaking or submerging for 6 weeks postoperatively. 8. Patient will follow-up for postoperative instructions. 9. Medicine is involved for safe discharge. 10. Due to nature of revision surgery will have patient on doxycycline for 2 weeks postoperatively. Patient was educated on the risk of sun sensitivity while on doxycycline. Patient voiced understanding. Patient was educated to take probiotic while on antibiotic. Patient voiced understanding. 11. Disposition: Patient is okay for discharge as long as pain maintains adequately controlled, patient has worked with in bed well with physical therapy, patient is cleared from medicine doctors instructions. Patient does have outpatient physical therapy scheduled. Patient will continue to be weightbearing as tolerated with her walker. Patient does have a 2-week follow-up visit scheduled with our office. Patient's medications will be sent to [facility] pharmacy as that is patient's pharmacy of choice. Patient was encouraged to call with any questions, concerns, or problems.
--- NOTE | 2025-06-27 11:11 | DCINST_ITS ---
Discharge Instructions DC O2, CPAP, BIPAP needs Home O2 Discharge instructions: No Dressing / Incision Discharge Activity: May Not Drive (No driving until patient can walk 100 feet with use of a cane and no longer taking narcotic pain medications.) Weight Bearing Status: Weight bearing as tolerated (With walker. ) Keep extremity elevated above heart level: Left Leg (Ice and elevation as tolerated.) Dressing / Incision Call your doctor if your incision/area has: Continuous Slow Oozing, Sudden Increased Bleeding, Increased Pain/ Swelling, Increased Redness, Foul Smelling Discharge and Swelling at the incision site Call your doctor if you observe: Fever of 101 or Higher, Coldness, Increased Pain, Numbness or Tingling, Change in Color, Inability to urinate, Inability to have a bowel movement, Using more than 1 pad per hour, Shortness of breath, Dizziness, Fainting spells, Swelling in the ankles, Chest pain, Increased palpitations (irregular heartbeat), Calf discomfort and Uncontrolled pain Remove Dressing in: 5 days (Remove dressing on day 5 postop. As long as incision is clean, dry, intact may leave open to air.) Cleanse incision/area with: Soap & Water (Gentle soap and water in the shower.) Additional Dressing/Incision Instructions:: No soaking or submerging for 6 weeks postoperatively. No lotions, salves, oils for 6 weeks postoperatively. Patient was educated on risk of sun sensitivity with doxycycline. Patient was educated take probiotic with doxycycline. Patient was educated to avoid taking her estradiol for 2 weeks postoperatively. Patient was educated to continue following anemia protocol. OARRS report was reviewed today. Follow Up Care Test Results: Test results from this visit will be discussed in further detail at your follow- up appointment, if applicable. Discharge Plan Admission Admit Date/Time: 06/26/25 15:22 Attending Provider: Hector Cedillo Primary Care Provider: Gallo Sanches Consulting Providers: Ronnie Holt Discharge Orders/Prescriptions Prescriptions: New acetaminophen 500 mg Tablet 1,000 mg PO Q8 Qty: 0 0RF aspirin 81 mg Tablet,Chewable 81 mg PO BID Qty: 0 0RF Rx Instructions: Aspirin 81 mg twice daily for 4 weeks postoperatively. celecoxib 200 mg Capsule 200 mg PO BID 30 Days Qty: 60 0RF sennosides-docusate sodium [Stimulant Laxative Plus] 8.6-50 mg Tablet 2 tab PO BID Qty: 0 0RF Rx Instructions: Take until first bowel movement and then can take as needed. doxycycline monohydrate 100 mg Capsule 100 mg PO BID 14 Days Qty: 28 0RF oxycodone 5 mg Tablet 5 - 10 mg PO Q4H PRN PRN (Reason: As needed for postoperative pain) 7 Days Qty: 42 0RF Continued calcium carbonate-vitamin D3 [Calcium 600 with Vitamin D3] 600 mg(1,500mg) - 400 unit capsule 1 cap PO BID cyanocobalamin (vitamin B-12) 100 MCG tablet 100 mcg PO DAILY venlafaxine 37.5 mg capsule,extended release 24hr 37.5 mg PO DAILY Gemtesa 75 mg tablet 75 mg PO 1200 omeprazole 20 mg capsule,delayed release(DR/EC) 20 mg PO DAILY rosuvastatin 5 mg tablet 5 mg PO DAILY Prolia 60 mg/mL syringe 60 mg subcut .[id number] prucalopride 2 mg tablet 2 mg PO QHS krill oil 114-178-60-75 mg capsule 1 cap PO DAILY iron [id number] 150-800-140 mg-mcg-mg tablet 1 tab PO MOWEFR famotidine 20 mg tablet 40 mg PO QHS cetirizine [Allergy Relief (cetirizine)] 10 mg tablet 10 mg PO DAILY docusate sodium [Colace] 100 mg capsule 100 mg PO BID Referrals / Follow Up: Gallo Sanches DO [Primary Care Provider, Medical] Disposition Disposition (needs filled in before D/C Order can be placed): Home, Self Care
--- NOTE | 2025-06-27 12:23 | CASEMGMT ---
SHELL CM into pt room, pt sitting up in bed eating lunch in no distress. Pt states she has outpt therapy starting tomorrow at [facility]. Pt has her walker in her room. Pt denies any homegoing needs at this time.
--- NOTE | 2025-06-27 13:02 | PHA.DC.MC.R ---
Pharmacy [facility] Med Rec Counseling Pharmacy Service has performed discharge medication reconciliation and counseling for this patient. Patient requested meds to beds, this [facility] called retail and asked for delivery. 1. ACETAMINOPHEN 1000MG PO Q8 2. ASPIRIN 81MG PO BIDCM X 4 WEEKS 3. CELECOXIB 200MG PO BID 4. DOXYCYCLINE 100MG PO BID X 2 WEEKS 5. OXYCODONE 5-10MG PO Q4H PRN PAIN 6. SENNA/DOCUSATE 2T PO BID The patient's discharge medication list was reviewed for discrepancies and discrepancies were resolved. The patient was counseled on the following discharge medications and changes in medications for homegoing were reviewed. The Reason for Use, instructions for use, and potential side effects were reviewed for all new medications. The patient's questions regarding all of their medications were answered. The patient was able to verbally demonstrate an understanding of their discharge medications. Patient counseled by pharmacy technician program directorMarco. Medications at Discharge Home Medications calcium 600 mg (as carbonate)-vitamin D3 10 mcg (400 unit) capsule (Calcium with Vitamin D3) 1 cap PO BID SUPPLEMENT 03/19/18 cyanocobalamin (vitamin B-12) 100 mcg tablet 100 mcg PO DAILY SUPPLEMENT 10/12/20 venlafaxine 37.5 mg capsule,extended release 24 hr 37.5 mg PO DAILY DEPRESSION 07/20/21 denosumab 60 mg/mL subcutaneous syringe (Prolia) 60 mg subcut .[id number] BLOOD 12/31/23 omeprazole 20 mg capsule,delayed release 20 mg PO DAILY GERD 12/31/23 rosuvastatin 5 mg tablet 5 mg PO DAILY CHOLESTEROL 12/31/23 vibegron 75 mg tablet (Gemtesa) 75 mg PO 1200 OAB 12/31/23 cetirizine 10 mg tablet (Allergy Relief (cetirizine)) 10 mg PO DAILY ALLERGIES 05/31/25 docusate sodium 100 mg capsule (Colace) 100 mg PO BID CONSTIPATION 05/31/25 famotidine 20 mg tablet 40 mg PO QHS GERD 05/31/25 iron [id number] thr-succ 150 mg-800 mcg-140 mg tablet 1 tab PO MOWEFR SUPPLEMENT 05/31/25 krill 500 mg-omega-3 150 mg-dha 45 mg-epa 75 mz-hsgdckv-qwefo capsule (krill oil) 1 cap PO DAILY SUPPLEMENT 05/31/25 prucalopride 2 mg tablet 2 mg PO QHS IBS 05/31/25 acetaminophen 500 mg tablet 1,000 mg (2 x 500 mg) PO Q8 #0 tabs 06/27/25 aspirin 81 mg chewable tablet 81 mg PO BID #0 tabs 06/27/25 celecoxib 200 mg capsule 200 mg PO BID 30 days #60 caps 06/27/25 doxycycline monohydrate 100 mg capsule 100 mg PO BID 14 days #28 caps 06/27/25 oxycodone 5 mg tablet 5 - 10 mg (1 - 2 x 5 mg) PO Q4H PRN PRN As needed for postoperative pain 7 days #42 tabs 06/27/25 sennosides 8.6 mg-docusate sodium 50 mg tablet (Stimulant Laxative Plus) 2 tab PO BID #0 tabs 06/27/25
--- NOTE | 2025-06-27 14:45 | CHAPLAIN ---
Type of Pastoral Visit ___ Initial Visit _x__ Follow-up Visit ___ On-call Visit ___ General Patient Visit ___ Spiritual Assessment ___ Family Conference ___ Bereavement ___ Rapid Response ___ Code Blue ___ Other (describe below) Pastoral Care Referral From _x__ Patient _x__ Family ___ Nurse ___ Physician ___ Children'S Service Supervisor ___ Associate Professor Of Anthropology ___ Other (describe below) Sacrament/Intervention _x__ Active listening ___ Anointing ___ Holiness ___ Bereavement ___ Communion ___ Yara exploration ___ _x__ Life review ___ Prayer ___ Reconciliation ___ Sacrament of Sick ___ Supportive presence ___ Wedding ___ Other (describe below) Pastoral Comments
== END 2025-06-27 14:15 | disposition home or self-care (01) ==
LOC: SDC 16:03 → MS3 06-27 07:03
PROVIDERS: Anesthesiology; Admitting Provider Specialist; PCP Student in an Organized Health Care Education/Training Program; Referring Provider Specialist; Visit Provider Specialist
PROC: (CPT 27487; principal; 2025-06-26 13:25)
DX: T84.84XA Pain due to internal orthopedic prosthetic devices, implants and grafts, initial encounter (principal); D64.9 Anemia, unspecified; E78.00 Pure hypercholesterolemia, unspecified; K21.9 Gastro-esophageal reflux disease without esophagitis; Z79.899 Other long term (current) drug therapy; N32.81 Overactive bladder; Y79.2 Prosthetic and other implants, materials and accessory orthopedic devices associated with adverse incidents; Z96.652 Presence of left artificial knee joint; F41.9 Anxiety disorder, unspecified; F32.A Depression, unspecified
CPT/HCPCS: 27486; 01402; 36415; 73560; 80048; 82962; 83735; 85025; 85027; 87081; 94668; 96361; 96365; 96366; 97161; 97165; 99221; C1776; G0378; J2405; J3475